=== PATIENT | male | born 1965 | race Caucasian/White ===

== ENCOUNTER 2022-12-13 16:08 | Emergency (ER) | payer OTHER, SELFPAY ==
[2022-12-13 16:14] VITALS: BP 142/91; PULSE 80; RESP 20; TEMP 36.6; O2SAT 97; BMI 23.6
--- NOTE | 2022-12-13 16:17 | XR_ITS ---
[address] [address] Patient Name: NIELS NIELSEN MRN: [id number] date: 1965 Sex: M Assigned Patient Location: ER Current Patient Location: ER Accession/Order Number: [id number] Exam Date: 12/13/2022 16:28 Report Date: 12/13/2022 16:49 At the request of: SALVADOR QUINTANA Procedure: XR foot LT min 3V PROCEDURE: XR foot LT min 3V HISTORY: crush injury to left foot COMPARISON: None. FINDINGS: BONES:No fracture, acute abnormality, or significant arthropathy. SOFT TISSUES:Mild dorsal soft tissue swelling. EFFUSION:None visible. OTHER: Negative. IMPRESSION: 1. Distal dorsal soft tissue swelling. 2. No acute bone abnormality. Electronically authenticated by: ANABEL CHAWLA Date: 12/13/2022 16:49
--- NOTE | 2022-12-13 16:30 | CT_ITS ---
The [address] [address] Patient Name: NIELS NIELSEN MRN: [id number] date: 1965 Sex: M Assigned Patient Location: ER Current Patient Location: ED.MAIN Accession/Order Number: [id number] Exam Date: 12/13/2022 16:50 Report Date: 12/13/2022 17:48 At the request of: SALVADOR QUINTANA Procedure: CT foot LT wo con EXAM: CT foot LT wo con COMPARISON: Same day x-rays. CLINICAL INDICATION: 1200lb crush injury TECHNIQUE: Multiplanar CT images of the left foot without contrast. Dose reduction techniques were achieved by using automated exposure control and/or adjustment of mA and/or kV according to patient size and/or use of iterative reconstruction technique. FINDINGS: No CT evidence of acute osseous abnormality. Small dorsal forefoot soft tissue hematoma/contusion. Chronic fragmentation and multi partite appearance of the medial hallux sesamoid favored as opposed to medial hallux sesamoid fracture although correlate for focal tenderness. Mild enthesopathic change at the distal Achilles tendon insertion. IMPRESSION: As above. Electronically authenticated by: CHIP MCELROY Date: 12/13/2022 17:48
--- NOTE | 2022-12-13 16:36 | ED.GENADUL1 ---
HPI - General Adult General Chief complaint: Extremity Injury, Lower Stated complaint: LOG SPLITTER ON FOOT Time Seen by Provider: 12/13/22 16:25 Source: family Mode of arrival: Wheelchair Limitations: no limitations History of Present Illness HPI narrative: patient is a 57-year-old male who is presenting after a crush injury to happen with it was better. Patient had a with splinter that was in the back of his truck. He was trying to get the what splinter out of the back of his truck, and he rolled off, and the tongue aspect of the what splinter had landed on his left foot, patient estimating approximately 1200 pounds more awake landed on the midfoot of his left foot. Patient cannot ambulate. Patient has taken nothing for pain. Patient's daughter and are at bedside. Patient has swelling and ecchymosis noted to the midfoot of the left foot. Patient has no pain to the toes of the left foot, no ankle pain, knee pain, no other injury or acute complaints. Patient did not have a syncopal episode after the event. Related Data Previous Rx's Medication Instructions Recorded hydrocodone 5 mg-acetaminophen 325 1 tab PO Q8H PRN pain #6 tabs 12/13/22 mg tablet Allergies Allergy/AdvReac Type Severity Reaction Status Date / Time No Known Drug Allergies Allergy Verified 12/13/22 16:14 Review of Systems ROS Narrative All systems are negative except as noted/marked. All systems reviewed and otherwise negative. PFSH PFS Social History Smoking status: Heavy tobacco smoker Exam Narrative Exam Narrative: Nurses note and vital signs reviewed and patient is not hypoxic. General: The patient appears well and in no apparent distress. Patient is resting comfortably on cart. Patient is not toxic, lethargic, or listless Skin: Warm, dry, no pallor noted. There is no rash noted. No petechiae, purpura. Head: Normocephalic, atraumatic Eye: Normal conjunctiva, no drainage, EOMI. PERRL Ears, Nose, Mouth, and Throat: oral mucosa is moist. Cardiovascular: Regular Rate and Rhythm, no murmur, gallop, rub Respiratory: Patient is in no distress, no accessory muscle use, lungs are clear to auscultation, no wheezing, rales or rhonchi Musculoskeletal: Patient has full range of motion of all of the extremities except to left foot. Patient left Achilles tendon is intact,patient has no tenderness to palpation to the left medial or lateral malleolus. Patient has severe pain to the mid foot of the left foot, mild to mod ecchymosis; no signs of compartment syndrome, no obvious deformity. no motor, sensory, or focal neurological deficits Neurological: A&O x3, normal speech Psychiatric: Cooperative Constitutional Vital Signs - 24 hr 12/13/22 16:14 Temperature 97.9 F Pulse Rate [Monitor] 80 Respiratory Rate 20 Blood Pressure [Right Arm] 142/91 H Pulse Oximetry 97 Course Vital Signs Vital signs: Vital Signs Temperature 97.9 F 12/13/22 16:14 Pulse Rate 80 12/13/22 16:14 Respiratory Rate 20 12/13/22 16:14 Blood Pressure 142/91 H 12/13/22 16:14 Pulse Oximetry 97 12/13/22 16:14 Temperature 97.9 F 12/13/22 16:14 Pulse Rate 80 12/13/22 16:14 Respiratory Rate 20 12/13/22 16:14 Blood Pressure 142/91 H 12/13/22 16:14 Pulse Oximetry 97 12/13/22 16:14 Medical Decision Making MDM Narrative Medical decision making narrative: patient's x-ray showed no acute fracture. CT showed questionable fracture this is more bone versus chronic fragments. Patient has no signs or symptoms of compartment syndrome when he arrived in at discharge. Patient was sent with [place], he will continue ice, patient was placed in Bonilla wrap, postop shoe and crutches. education, ice, weightbearing as tolerated, and following up with PCP or instructor hairspring was discussed at bedside. procedure note: Patient was placed in Bonilla wrap, postop shoe and crutches for the left foot and left leg. Splint was assisted with . the patient was neurovascularly intact before and after the splint was placed. the affected bones/injured area had proper alignment in a splint. Education on splint care at home was given at bedside. Patient and family have no questions at discharge. Medical Records Medical records narrative: patient's x-ray showed no acute fracture, CT of the left foot showed no obvious acute fracture, chronic changes favored. Copy of patient's CT report was given to patient. Please see the official reports. Discharge Plan Discharge Chief Complaint: Extremity Injury, Lower Clinical Impression: Crush injury of left foot Patient Disposition: Home, Self-Care Time of Disposition Decision: 18:20 Prescriptions / Home Meds: New hydrocodone-acetaminophen 5-325 mg tablet 1 tab PO Q8H PRN (Reason: pain) Qty: 6 0RF Instructions: Foot Contusion (ED), Crush Injury (ED) Additional Instructions: ice 20 minutes on, 20 minutes off. Do not use heat. Use pain medication as needed, narcotics could cause constipation, he still softeners if needed. Use ibuprofen, Motrin or Advil 800 mg 3 times a day with food or drink to help with pain and inflammation as well. use crutches for the next 3-5 days as needed, weightbearing as tolerated on left foot. Only wear postop shoe when her walking. Wear Bonilla wrap at all times excluding ice and shower for the next 7-10 days. Follow-up with PCP or instructor hairspring. Stand Alone Forms: Portal Instructions Referrals: Physician,Non-Staff, [Primary Care Provider] - 1 week Bryce Hedrick MD [Physician] - 1 week
== END 2022-12-13 18:52 | disposition home or self-care (01) ==
PROVIDERS: Emergency Provider Emergency Medicine
DX: S97.82XA Crushing injury of left foot, initial encounter (principal); W23.0XXA Caught, crushed, jammed, or pinched between moving objects, initial encounter; F17.210 Nicotine dependence, cigarettes, uncomplicated
CPT/HCPCS: 73630; 73700; 99284

== ENCOUNTER 2023-01-02 13:51 | Outpatient (OUT) | payer OTHER, SELFPAY ==
--- NOTE | 2023-01-02 13:51 | XR_ITS ---
The [address] [address] Patient Name: NIELS NIELSEN MRN: [id number] date: 1965 Sex: M Assigned Patient Location: RAD Current Patient Location: RAD Accession/Order Number: [id number] Exam Date: 01/02/2023 13:51 Report Date: 01/02/2023 14:22 At the request of: MASSIMO BRIDGES Procedure: XR foot LT min 3V EXAM: XR foot LT min 3V HISTORY: LEFT FOOT PAIN since 12/22/2022 COMPARISON: None. TECHNIQUE: 3 views of left foot were obtained. FINDINGS: There is a fracture involving the mid shaft of the third metatarsal bone. The distal fracture fragment is slightly impacted and displaced dorsally and laterally approximately one half shaft diameter. There is slight medial angulation of the distal fracture fragment. There is no other evidence of a fracture or dislocation. The joint spaces are intact. A calcification is seen in the distal Achilles tendon near the attachment site. IMPRESSION: Fracture of the mid shaft of the third metatarsal bone, with position and alignment as described. There is no other apparent acute fracture or dislocation. Electronically authenticated by: COCO TAY Date: 01/02/2023 14:22
== END 2023-01-02 13:52 | disposition home or self-care (01) ==
LOC: RAD 13:51
PROVIDERS: Visit Provider Physician Assistant
DX: M79.672 Pain in left foot (principal); S92.332A Displaced fracture of third metatarsal bone, left foot, initial encounter for closed fracture
CPT/HCPCS: 73630

== ENCOUNTER 2023-01-22 13:43 | Outpatient (OUT) | payer OTHER, SELFPAY ==
--- NOTE | 2023-01-22 13:53 | XR_ITS ---
The [place] [id number] Patient Name: NIELS NIELSEN MRN: [id number] date: 1965 Sex: M Assigned Patient Location: RAD Current Patient Location: RAD Accession/Order Number: [id number] Exam Date: 01/22/2023 13:53 Report Date: 01/22/2023 18:34 At the request of: COCO COOLEY Procedure: XR foot LT min 3V PROCEDURE: XR foot LT min 3V COMPARISON: 01/02/2023 HISTORY: LEFT FOOT PAIN FINDINGS: BONES:Healing transverse fracture mid diaphysis of the third metatarsal with periosteal reaction and mixed lytic and sclerotic change with partial bony bridging. No new fracture or dislocation. SOFT TISSUES:Negative. No visible soft tissue swelling. EFFUSION:None visible. OTHER: Negative. XR/XR foot LT min 3V IMPRESSION: Healing stable fracture mid diaphysis of the third metatarsal Electronically authenticated by: ADRIANNE RICHARDSON Date: 01/22/2023 18:34
== END 2023-01-22 13:44 | disposition home or self-care (01) ==
LOC: RAD 13:44
PROVIDERS: Visit Provider Podiatrist Foot & Ankle Surgery
DX: S92.332A Displaced fracture of third metatarsal bone, left foot, initial encounter for closed fracture (principal)
CPT/HCPCS: 73630

== ENCOUNTER 2023-02-19 10:35 | Outpatient (OUT) | payer OTHER, SELFPAY ==
--- NOTE | 2023-02-19 | XR_ITS ---
The [address] [address] Patient Name: NIELS NIELSEN MRN: [id number] date: 1965 Sex: M Assigned Patient Location: RAD Current Patient Location: RAD Accession/Order Number: [id number] Exam Date: 02/19/2023 10:38 Report Date: 02/19/2023 22:20 At the request of: COCO COOLEY Procedure: XR foot LT min 3V PROCEDURE: XR foot LT min 3V COMPARISON: 01/22/2023 HISTORY: LEFT FOOT PAIN FINDINGS: BONES:Stable healing fracture mid diaphysis of the third metatarsal with interval increase in periosteal reaction and callus formation SOFT TISSUES:Negative. No visible soft tissue swelling. EFFUSION:None visible. OTHER: Negative. XR/XR foot LT min 3V IMPRESSION: Continued healing of the third metatarsal mid diaphyseal fracture Electronically authenticated by: ADRIANNE RICHARDSON Date: 02/19/2023 22:20
== END 2023-02-19 10:36 | disposition home or self-care (01) ==
LOC: RAD 10:35
PROVIDERS: Visit Provider Podiatrist Foot & Ankle Surgery
DX: M79.672 Pain in left foot (principal); S92.332D Displaced fracture of third metatarsal bone, left foot, subsequent encounter for fracture with routine healing
CPT/HCPCS: 73630

== ENCOUNTER 2023-03-19 10:37 | Outpatient (OUT) | payer OTHER, SELFPAY ==
--- NOTE | 2023-03-19 | XR_ITS ---
[place] [id number] Patient Name: NIELS NIELSEN MRN: [id number] date: 1965 Sex: M Assigned Patient Location: RAD Current Patient Location: RAD Accession/Order Number: [id number] Exam Date: 03/19/2023 10:48 Report Date: 03/19/2023 11:11 At the request of: COCO COOLEY Procedure: XR foot LT min 3V PROCEDURE: XR foot LT min 3V COMPARISON: 02/19/2023 HISTORY: LEFT FOOT PAIN FINDINGS: BONES:Stable healing fracture mid diaphysis of the third metatarsal with exuberant callus formation but incomplete bony bridging SOFT TISSUES:Negative. No visible soft tissue swelling. EFFUSION:None visible. OTHER: Negative. XR/XR foot LT min 3V IMPRESSION: Stable healing fracture mid diaphysis of the third metatarsal Electronically authenticated by: ADRIANNE RICHARDSON Date: 03/19/2023 11:11
== END 2023-03-19 10:38 | disposition home or self-care (01) ==
LOC: RAD 10:38
PROVIDERS: Visit Provider Podiatrist Foot & Ankle Surgery
DX: S92.332A Displaced fracture of third metatarsal bone, left foot, initial encounter for closed fracture (principal)
CPT/HCPCS: 73630

== ENCOUNTER 2023-11-22 10:32 | Emergency (ER) | payer OTHER, SELFPAY ==
[2023-11-22] VITALS (11 sets, daily range): BP systolic 156–209; BP diastolic 89–101; PULSE 69–80; TEMP 37; O2SAT 96–98; BMI 25.8
--- NOTE | 2023-11-22 10:53 | ED_ITS ---
HPI HPI - General Adult General Chief complaint: Extremity Injury, Upper Stated complaint: PASSED OUT POSSIBLE HIGH BLOOD PRESSURE Time Seen by Provider: 11/22/23 10:38 Source: patient and family Mode of arrival: walk-in Limitations: no limitations History of Present Illness HPI narrative: This patient is here for evaluation of a syncopal episode. This event occurred last night. He says he was standing watching TV getting ready to have some popcorn and the next thing he knows he woke up on the floor unconscious. He got to them right away and that was the first she has heard about but he states that he has had several previous episodes of syncope that he has not shared with her or anyone else. He has not seen a doctor for many many years. He is not on any medications. He has no idea what his cholesterol or lipid status is the only hint he gives in regards to this is, he occasionally notices palpitations and a skipping heartbeat. He did not experience this yesterday. He did not have any evidence of a vasovagal faint yesterday he felt fine leading up to this event. He does not have a headache. He has not injured himself with a fall yesterday. He has social history of smoking tobacco products for many many years. To his knowledge she does not have hypertension or diabetes. He does not have any abdominal pain. He does notice some exertional dyspnea recent ly. He has not noticed any swelling of his extremities. He has not seen a doctor for any of these episodes Related Data Allergies Allergy/AdvReac Type Severity Reaction Status Date / Time No Known Drug Allergies Allergy Verified 12/13/22 16:14 Opioid HPI Opioid Management Most Recent Opioid Data: Last Pain Scale 7 12/13/22 16:37 Last ED Pain Assessment 11/22/23 11:16 [facility] Social History Smoking status: Heavy tobacco smoker Exam Narrative Exam Narrative: Patient is awake alert good historian admits that his made him come here today. He is oriented x 3 is not confused GCS is 15. He has no neurological symptoms at this time. Overall examination appears older than physiological age of 58. HEENT shows no carotid bruits on either side there is no thyromegaly or masses here. Neck is soft and supple there is no meningeal irritation. Neurological shows cranial nerves II through XII to be normal. Lungs were clear with no wheeze rales or rhonchi. Heart sounds are equally benign with no clicks rubs gallops or murmur. He has no abdominal discomfort. His pulses to the extremities are normal. There is no swelling of his limbs and perfusion to the extremities is normal. Skin and integument are normal with no petechia or purpura. Constitutional Vital Signs, click to edit/add: Last Vital Signs Temp 98.6 F 11/22/23 10:38 Pulse 78 11/22/23 10:38 Resp 18 11/22/23 10:38 BP 190/99 H 11/22/23 10:38 Pulse Ox 98 11/22/23 10:38 O2 Del Method Room Air 11/22/23 10:38 Course Vital Signs Vital signs: Vital Signs Temperature 98.6 F 11/22/23 10:38 Pulse Rate 78 11/22/23 10:38 Respiratory Rate 18 11/22/23 10:38 Blood Pressure 190/99 H 11/22/23 10:38 Pulse Oximetry 98 11/22/23 10:38 Oxygen Delivery Method Room Air 11/22/23 10:38 Temperature 98.6 F 11/22/23 10:38 Pulse Rate 78 11/22/23 10:38 Respiratory Rate 18 11/22/23 10:38 Blood Pressure 190/99 H 11/22/23 10:38 Pulse Oximetry 98 11/22/23 10:38 Oxygen Delivery Method Room Air 11/22/23 10:38 Medical Decision Making MDM Narrative Medical decision making narrative: Patient's screening labs shows mild elevation of his liver function test. He says he does use alcoholic beverages on. Regular basis. His chest x-ray did not show any gross abnormalities, cardiac size is normal. EKG does not show any prolongation of QTc and he was on a equipment monitor phototypesetting here and had no arrhythmia. Basic chemistry profile is essentially normal. We had a lengthy discussion with he and his explaining to him that he absolutely must further follow-up evaluation for these episodes. 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 We given him a list of physicians to follow-up with. His does also have a physician that could see him as well. Will give him a copy of all his laboratory tests. Discharge Plan Discharge Stand Alone Forms: Portal Instructions Chief Complaint: Extremity Injury, Upper Clinical Impression: Syncope Patient Disposition: Home, Self-Care Time of Disposition Decision: 12:29 Print Language: Tajik Additional Instructions: Follow-up with local practitioner for ongoing testing and evaluation as discussed. Referrals: Physician,Non-Staff, MD [Primary Care Provider] - 1 week
--- NOTE | 2023-11-22 10:54 | XR_ITS ---
The [address] [address] Patient Name: NIELS NIELSEN MRN: [id number] date: 1965 Sex: M Assigned Patient Location: ER Current Patient Location: ER Accession/Order Number: [id number] Exam Date: 11/22/2023 11:10 Report Date: 11/22/2023 11:24 At the request of: SCOTTIE WEBB Procedure: XR chest 2V EXAMINATION: XR chest 2V, 11/22/2023 11:10 AM EDT HISTORY: Syncope COMPARISON: None. TECHNIQUE: PA and lateral views of the chest were obtained. FINDINGS: Medical devices: None. Cardiomediastinal silhouette is within normal limits. The lungs are clear, nipple shadows are noted bilaterally on the frontal view. No pleural effusion or pneumothorax. No acute bony or soft tissue abnormalities. XR/XR chest 2V IMPRESSION: 1. No acute cardiopulmonary abnormality. Electronically authenticated by: CONNOR GARCIA Date: 11/22/2023 11:24
--- NOTE | 2023-11-22 10:54 | ECG_ITS ---
The [facility] Test Date: 2023-11-22 Pat Name: NIELS NIELSEN Department: Room: - Gender: Male [employer] Operator: : 1965 Requested By: Order Number: [id number] Reading MD: GENIE NELSON Measurements Intervals [place] Rate: 67 P: 53 DE: 162 QRS: 54 QRSD: 80 T: 71 QT: 414 QTc: 429 Interpretive Statements 1100 Sinus rhythm 9110 normal ECG No previous ECG available for comparison Electronically Signed On 11-23-2023 18:38:26 EDT by GENIE NELSON
[2023-11-22 11:14] LABS: Basophils Absolute Auto 0.1 10^3/uL (0.0-0.1); Basophils Percent Auto 1.7 % (0.2-2.0); Eosinophils Absolute Auto 0.3 10^3/uL (0.0-0.7); Eosinophils Percent Auto 3.3 % (0.9-7.0); Hematocrit 47.3 % (42.0-54.0); Hemoglobin 16.3 g/dL (14.0-18.0); Immature Granulocytes Abs Auto 0.01 10^3/uL (0.00-0.03); Immature Granulocytes Pct Auto 0.1 % (0.0-0.5); Lymphocytes Absolute Auto 3.4 10^3/uL (1.2-3.8); Lymphocytes Percent Auto 41.5 % (20.5-60.0); Mean Corpuscular HGB Conc 34.5 g/dL (29.9-35.2); Mean Corpuscular Hemoglobin 32.1 pg (25.9-34.0); Mean Corpuscular Volume 93.3 fL (80.0-94.0); Mean Platelet Volume 10.5 fL (9.5-13.5); Monocytes Absolute Auto 0.6 10^3/uL (0.3-0.8); Monocytes Percent Auto 7.4 % (1.7-12.0); Neutrophils Absolute Auto 3.8 10^3/uL (1.4-6.5); Platelet Count 229 10^3/uL (150-450); Red Blood Count 5.07 10^6/uL (4.70-6.10); White Blood Count 8.2 10^3/uL (4.0-11.0)
[2023-11-22 11:42] LABS: Alanine Aminotransferase 98 U/L (16-63); Albumin Level 4.3 g/dL (3.4-5.0); Alkaline Phosphatase 99 U/L (46-116); Anion Gap 11.2; Aspartate Amino Transferase 61 U/L (15-37); BUN Creatinine Ratio 9.5; Bilirubin Total 0.5 mg/dL (0.2-1.0); Calcium 9.1 mg/dL (8.5-10.1); Carbon Dioxide 28.9 mmol/L (21.0-32.0); Chloride 102 mmol/L (98-107); Estimated GFR (African America >60 (>=60); Estimated GFR (Non-African Ame >60 (>=60); Globulin 4.2 g/dL; Glucose 106 mg/dL (74-106); Potassium 5.1 mmol/L (3.5-5.1); Sodium 137 mmol/L (136-145); Total Protein 8.5 g/dL (6.4-8.2)
[2023-11-22 11:52] LABS: D Dimer 0.61 mg/L FEU (<=0.59)
== END 2023-11-22 12:40 | disposition home or self-care (01) ==
PROVIDERS: Emergency Provider Emergency Medicine Emergency Medical Services
DX: R55 Syncope and collapse (principal); F17.210 Nicotine dependence, cigarettes, uncomplicated
CPT/HCPCS: 36415; 71046; 80053; 83880; 84484; 85025; 85378; 93005; 99285

== ENCOUNTER 2023-12-04 10:11 | Outpatient (OUT) | payer OTHER, SELFPAY ==
--- OUTSIDE RECORDS SUMMARY | 2023-12-04 10:18 | XMS_ITS | CCD ---
Author Organization [facility] Inform ion Partnership [facility] Care Team Providers Care Kiln Packer Name Role Phone ANABEL LONG Unavailable Unavailable ANABEL LONG Unavailable Unavailable ANABEL LONG Unavailable Unavailable ANABEL LONG Unavailable Unavailable TAMMY CONTRERAS Unavailable Unavailable KARENGEE Admitting Unavailable KARENGEE Attending Unavailable DEION MONK Consulting Unavaila ble BV, Physician - Emergency Consulting [place] Valentin, K[employer]al Consult[employer] Unavailable Allergies Allergy Classification Reported Allergen(s) Allergy Type Date of Onset Reaction(s) Facility (1 source) No Known Medication Allergies; Translations: [No Known Medication Allergies] Propensity to adverse reactions to drug (disorder) [facility] Repository Problems Problem Classification Problem Date Documented Da te Episodic/Chronic Nausea and vomiting (1 source) Nausea with vomiting, unspecified; Translations: [Nausea with vomiting, unspecified] Onset: 10-24-2017 Episodic Noninfectious gastroenteritis (1 source) Noninfective gastroenteritis and colitis, unspecified; Translations: [Noninfective gastroenteritis and colitis, unspecified] Onset: 10-24-2017 Episodic Other gastrointestinal disorders (1 source) Diarrhea, unspecified; Translations: [Diarrhea, unspecified] Onset: 10-24-2017 Episodic Results Test Name Value Interpretation Reference Range Facility Family Medicine Office/Clini c Noteon 11-27-2018 Family Medicine Office/Clinic Note Chief Complaint Hospital f/u,New PT History of Present Illness HPI: Pt hasnt seen a PCP in yrs. Pt states hes feeling better since being in the hospital. Pt has no concerns. No PCP in years. PMH significant for HTN. Recently in the hospital for chest pains. CXR, labs, cardiac workup, stress test were all normal. BP is controlled. No longer having any chest pains or SOB. Was told his symptoms were muscle related. Everyday smoker (1 ppd or more). Review of Systems General Adult ROS Fatigue: No Appetite change: No Other General: No Weakness: No Weight gain: No Weight Loss: No Cardiovascular Chest pain/pressure: No Claudication: No Edema: No Orthopnea: No Other Cardiovascular: No Palpitations: No Syncope: No EENMT Bleeding gums: No Dental pain: No Ear pain: No Facial pain: No Hearing loss: No Hoarseness: No Mouth lesions: No Nasal congestion: No Nasal discharge: No Nosebleeds: No Other EENMT: No Postnasal drainage: No Sore_throat: No Tinnitus: No Vision Changes: No Gastrointestinal Abdominal pain: No Constipation: No Diarrhea: No Dysphagia: No Fecal incontinence: No Heartburn: No Nausea: No Other GI: No Stools, black/bloody: No Vomiting: No Vomiting blood: No Genitourinary Hematologic/Lymphatic Musculoskeletal Neurological Psychiatric Respiratory Cough: No Hemoptysis: No Other Respiratory: No Shortness_of_breath: No Snoring: No Sputum production: No Wheezing: No Physical Exam Vitals & Measurements BP: 134/80 SpO2: 95 HT: 177 cm WT: 69.4 kg DOSE WT: 69.4 kg BMI: 22.15 General: Alert and oriented, well nourished, no acute distress. Lungs: Clear to auscultation, non-labored respiration. Heart: Normal rate, regular rhythm, no murmur, gallop or edema. Neurologic: Awake, alert, and oriented X3, CN II-XII intact. Psychiatric: Cooperative, appropriate mood and affect. Additional Vitals Body Mass Index Measured: 22.15 kg/m2 BP Position/Location: Sitting, Right arm Peripheral Pulse Rate: 71 bpm Assessment/Plan 1. Encounter to establish care 2. Hospital discharge follow-up 3. Atypical chest pain This has resolved. Go to ED if having chest pains again. 4. Hypertension Controlled without meds. 5. Tobacco use Declines cessation today. F/u 6 months with labs Problem List/Past Medical History Ongoing Atypical chest pain Hypertension Tobacco use Historical No qualifying data Procedure/Surgical History bilateral rotator cuff repairs left leg surgery- pins right hip surgery Medications No active medications Allergies No Known Medication Allergies Social History Alcohol Current, Beer Substance Abuse Denies All Tobacco 10 or more cigarettes (1/2 pack or more)/day in last 30 days Use:. Cigarettes, 1 per day. Ready to change: No. Family History Family history is negative Diagnostic Results No qualifying data available (XRay) No qualifying data available (CT) No qualifying data available (Ultrasound) No qualifying data available (MRI) Electronically signed by ___ Guille Khan PA-C 11/27/18 15:46 EDT Normal [facility] .eGFRon 11-20-2018 eGFR AA >60 Normal >=60 [facility] Comment on above: Result Comment: Resu lt = 0-14.9 mL/min/1.73 m2 Kidney failure or Dialysis Result = 15-29 mL/min/1.73 m2 Severe decrease in GFR Result = 30-59 mL/min/1.73 m2 Moderate decrease in GFR Result >= 60 mL/min/1.73 m2 Normal or increased GFR Performed By: #### E GFR #### [address] [address] eGFR Non-AA >60 Normal >=60 [facility] Comment on above: Result Comment: Resu lt = 0-14.9 mL/min/1.73 m2 Kidney failure or Dialysis Result = 15-29 mL/min/1.73 m2 Severe decrease in GFR Result = 30-59 mL/min/1.73 m2 Moderate decrease in GFR Result >= 60 mL/min/1.73 m2 Normal or increased GFR Chronic kidney disease is defined as either kidney damage or GFR < 60 mL/min/1.73 m2 for >= 3 months. Kidney damage is defined as pathologic abnormalities or markers of damage including abnormalities in blood or urine tests or imaging studies. This GFR is NOT used for medication dosing. Performed By: #### E GFR #### [address] [address] AMI 2Hron 11-20-2018 2 Hour Myoglobin 22.0 ng/mL Normal 17.4-105.7 [facility] Comment on above: Performed By: #### C BC #### [address] [address] Troponin I.cardiac [Mass/Vol] ng/mL Normal 0.00-0.03 [facility] Comment on above: Result Comment: An i ncreased Troponin-I value, in the absence of myocardial ischemia, may indicate other etiologies of cardiac damage. Performed By: #### C BC #### [address] [address] AMI Initon 11-20-2018 Initial Myoglobin 29.0 ng/mL Normal 17.4-105.7 [facility] Comment on above: Performed By: #### A MI1 #### [address] [address] Troponin I.cardiac [Mass/Vol] ng/mL Normal 0.00-0.03 [facility] Comment on above: Result Comment: An i ncreased Troponin-I value, in the absence of myocardial ischemia, may indicate other etiologies of cardiac damage. Performed By: #### A MI1 #### [address] [address] [id number] 11-20-2018 6 Hour Myoglobin 27.0 ng/mL Normal 17.4-105.7 [facility] Comment on above: Performed By: #### C BC #### [address] [address] Troponin I.cardiac [Mass/Vol] ng/mL Normal 0.00-0.03 [facility] Comment on above: Result Comment: An i ncreased Troponin-I value, in the absence of myocardial ischemia, may indicate other etiologies of cardiac damage. Performed By: #### C BC #### [address] [address] Basic Metabolic Profileon Anion gap [Moles/Vol] 14 mmol/L Normal 01-20 [facility] Comment on above: Performed By: #### C [id number] #### [address] [address] Calcium [Mass/Vol] 8.7 mg/dL Normal 8.5-10.3 [facility] Comment on above: Performed By: #### C [id number] #### [address] [address] Chloride [Moles/Vol] 105 mmol/L Normal 98-110 [facility] Comment on above: Performed By: #### C [id number] #### [address] [address] CO2 [Moles/Vol] 22 mmol/L Normal 22-32 [facility] Comment on above: Performed By: #### C [id number] #### [address] [address] Creatinine [Mass/Vol] 0.70 mg/dL Normal 0.61-1.24 [facility] Comment on above: Performed By: #### C [id number] #### [address] [address] Glucose [Mass/Vol] 100 mg/dL Normal 74-118 [facility] Comment on above: Performed By: #### C [id number] #### [address] [address] Potassium [Moles/Vol] 4.4 mmol/L Normal 3.4-4.8 [facility] Comment on above: Performed By: #### C [id number] #### [address] [address] Sodium [Moles/Vol] 137 mmol/L Normal 133-142 [facility] Comment on above: Performed By: #### C [id number] #### [address] [address] Urea nitrogen [Mass/Vol] 13 mg/dL Normal 8-26 [facility] Comment on above: Performed By: #### C [id number] #### [address] [address] Urea nitrogen/Creatinine [Mass ratio] 18.6 mg/mg Normal 10.0-20.0 [facility] Comment on above: Performed By: #### C [id number] #### [address] [address] CBC w/ Diffon 11-20-2018 Erythrocyte distribution width (RBC) [Ratio] 13.0 % Normal 11.6-14.8 [facility] Comment on above: Performed By: #### C BC #### [address] [address] Hematocrit (Bld) [Volume fraction] 46.3 % Normal 41.0-53.0 [facility] Comment on above: Performed By: #### C BC #### [address] [address] Hemoglobin (Bld) [Mass/Vol] 15.8 g/dL Normal 13.5-17.5 [facility] Comment on above: Performed By: #### C BC #### [address] [address] MCH (RBC) [Entitic mass] 32.5 pg Normal 27.0-35.0 [facility] Comment on above: Performed By: #### C BC #### [address] [address] MCHC (RBC) [Mass/Vol] 34.1 % Normal 31.0-37.0 [facility] Comment on above: Performed By: #### C BC #### [address] [address] MCV (RBC) [Entitic vol] 95.3 fL Normal 80.0-100.0 [facility] Comment on above: Performed By: #### C BC #### [address] [address] Platelet mean volume (Bld) [Entitic vol] 8.6 fL Normal 6.7-10.6 [facility] Comment on above: Performed By: #### C BC #### [address] [address] Platelets (Bld) [#/Vol] 202 x10*3/mcL Normal 150-350 [facility] Comment on above: Performed By: #### C BC #### [facility] [address] [place] [address] RBC (Bld) [#/Vol] 4.86 x10*6/mcL Normal 4.30-5.80 [facility] Comment on above: Performed By: #### C BC #### [facility] [address] [place] [address] WBC (Bld) [#/Vol] 12.8 x10*3/mcL High 4.5-11.0 [facility] Comment on above: Performed By: #### C BC #### [facility] [address] [place] [address] Cardiology Consultationon Cardiology Consultation Chief Complaint dyspnea with left chest discomfort sudden onse Reason for Consultation Chest pain History of Present Illness No prior cardiac history. Smokes and does not see a physician. This morning he suddenly developed severe dyspnea at work. He walked out to his truck and noted some brief left parasternal pain with inspiration. The dyspnea persisted. He called his and he was brought to the ED. ECG, serum biomarkers normal in ED. The rest dyspnea resolved but he has continued to have dyspnea with activity. Chest pain now only with palpation or deep inspiration or cough. Stress test was normal today, but he was only able to walk 3 minutes due to severe dyspnea. Review of Systems Constitutional: [No fevers, chills, sweats] Eye: [No recent visual problems] ENMT: [No ear pain, nasal congestion, sore throat] Respiratory: [+ shortness of breath, cough] Cardiovascular: [+ Chest pain, No palpitations, syncope] Gastrointestinal: [No nausea, vomiting, diarrhea] Genitourinary: [No hematuria] Physical Exam Vitals & Measurements T: 36.7 ?C (Oral) HR: 61 (Monitored) RR: 16 BP: 151/85 SpO2: 94% WT: 67.8 kg DOSE WT: 67.8 kg Lungs: [Clear to auscultation and percussion, non-labored respiration]. Heart: [Normal rate, regular rhythm, no murmur, gallop or edema]. Abdomen: [Soft, non-tender, non-distended, normal bowel sounds, no masses]. Mental Status:[Alert and oriented x3]. Additional Vitals Body Mass Index Measured: 21.45 kg/m2 Peripheral Pulse Rate: 69 bpm Assessment/Plan 1. Chest pain Atypical for angina, normal biomarkers, normal stress. Would hold off on further cardiac eval at this time. He should be evaluated for pulmonary causes of the dyspnea. 2. Dyspnea 3. Palpitations 4. Hypertension Problem List/Past Medical History Ongoing No qualifying data Historical No qualifying data Procedure/Surgical History bilateral rotator cuff repairs left leg surgery- pins right hip surgery Medications Home No active home medications Inpatient acetaminophen, 1000 mg, Oral, TID acetaminophen, 650 mg, Oral, q6hr, PRN aspirin, 81 mg, Oral, Daily morphine, 2 mg, 1 mL, IV Push, q2hr, PRN naloxone, 0.4 mg, 1 mL, IV Push, q2min, PRN nicotine 21 mg/24 hr transdermal film, extended release, 1 patches, TD, Daily, PRN Normal Saline Flush 0.9% injectable solution, 10 mL, IV Push, BID Normal Saline Flush 0.9% injectable solution, 10 mL, IV Push, As Indicated, PRN ondansetron, 4 mg, 2 mL, IV Push, q4hr, PRN Prescriptions No active Prescriptions Allergies No Known Medication Allergies Social History Alcohol Current, Beer Substance Abuse Denies All Tobacco 10 or more cigarettes (1/2 pack or more)/day in last 30 days Use:. Cigarettes, 1 per day. Lab Results Microbiology No qualifying data available. Electronically signed by ___ Aleshia BEDOLLA, Deion Flynn 11/20/18 16:18 EDT Normal [facility] [employer] Progress Noteon 11-20-2018 [employer] Progress Note CM met with patient before huddles today. He is new to the floor from ER for chest pain. he is asking to go home since unable to do a stress test today. ROSA will update RN, educated patient on remaining in the hospital while labs are trending for ND. He does have insurance, independent with adl's, still drives, no assistive devices used, has supportive SO. He voices he doesn't go to doctors, he doesn't need too. CM educated patient on this & he agrees to let CM set him up with a new PCP to establish care. Request Dr. Quintana, since this is who is SO sees. CM will work on this today. He does not want to quit smoking, but agrees he should cut back. his main concern is getting out of the hosptial today, because i gotta pay for this & no reason to stay here to wait & do a test on friday. Again, re-educated & reminded him to wait for the doctors recommendations first. I don't like hospitals or doctors too well & if I don't need to go to them, I don't. SO at bedside for conversation. No other concerns or questions for CM. Will F/U as needed. discussed in huddle. Electronically signed by ___ Leidy Chapin 11/20/18 12:23 EDT Recieved a call back from Dr. quintana rope maker. Upon discussion, we reviewed patient listed as a self-pay, however, patient informed CM earlier he has insurance, so will need to verify & call back, but Dr. Quintana will accept if insurance accepted. Electronically signed by ___ Leidy Chapin 11/20/18 14:21 EDT CM knocked & entered room of patient, room smelled of strong cigarette smell, pt. denies smoking. Made Nurse gale aware. Upon discussion regarding PCP, patient states he is in between insurance right now so I guess I don't have any right now. CM can not make the appointment with dr. quintana without knowing insurance & patient states he will not self pay for an appointment. States Just let it go, I don't need one. He is also continuing to verbalize getting out of this place. Unfortunately, CM can not get him an appointment with any MD without insurance unless he is willing to pay out of pocket &pt. refuses. encouraged patient to contact DR. Quintana office once he has insurance through his job established. Refuses to speak to financial services education consultant when CM offered. Offered self pay education pamphlet as well, pt refuses stating he will get it figured out. CM put financial assistance program in chart for Discharge. Electronically signed by ___ Leidy Chapin 11/20/18 14:32 EDT Normal [facility] D-Dimeron 11-20-2018 Fibrin D-dimer FEU IA (Bld) [Mass/Vol] 0.34 mg/L feu Normal 0.00-0.49 [facility] Comment on above: Result Comment: Resu lts of the D-Dimer test should always be interpreted in conjunction with the patient's medical history, clinical presentation, and other findings. Results <0.5 mg/L are considered NEGATIVE for VTE. Results >= 0.5 mg/L require further clinical evaluation. Levels of triglyceride up to 600 mg/dl do not interfere with this D-Dimer assay. Performed By: #### D TRACY #### [address] [address] Diff Autoon 11-20-2018 Baso Absolute 0.1 x10*3/mcL Normal 0.0-0.2 [facility] Comment on above: Performed By: #### . Automated Diff #### [address] [address] Basophils/100 WBC (Bld) 0.8 % Normal 0.0-1.2 [facility] Comment on above: Performed By: #### . Automated Diff #### [address] [address] Eos Absolute 0.2 x10*3/mcL Normal 0.0-0.4 [facility] Comment on above: Performed By: #### . Automated Diff #### [address] [address] Eosinophils/100 WBC (Bld) 1.9 % Normal 0.0-6.1 [facility] Comment on above: Performed By: #### . Automated Diff #### [address] [address] Lymphocytes (Bld) [#/Vol] 3.5 x10*3/mcL Normal 1.0-4.8 [facility] Comment on above: Performed By: #### . Automated Diff #### [address] [address] Lymphocytes/100 WBC (Bld) 27.3 % Normal 27.2-40.8 [facility] Comment on above: Performed By: #### . Automated Diff #### [address] [address] [place] Absolute 0.9 x10*3/mcL Normal 0.3-1.1 [facility] Comment on above: Performed By: #### . Automated Diff #### [address] [address] Monocytes/100 WBC (Bld) 6.9 % Normal 4.7-13.9 [facility] Comment on above: Performed By: #### . Automated Diff #### [address] [address] Neutro Absolute 8.1 x10*3/mcL High 1.8-7.7 [facility] Comment on above: Performed By: #### . Automated Diff #### [address] [address] Neutro Auto 63.1 % Normal 47.2-70.8 [facility] Comment on above: Performed By: #### . Automated Diff #### [address] [address] ED Clinical Summaryon 2018 ED Clinical Summary (Inserted Image. Ale ble to display) [address] [address] ED Clinical Summary Person Information Name: Ahsan Rivas [facility] Age: 53 Years : 1965 Sex: Male PCP: Marital Status: Single Phone: Race: White Ethnicity: Not or Language: Citizen Of [place] Visit Reason: Dyspnea; Chest pain - Cardiac Acuity: 2 Enc Type: Observation Med Service: Emergency Medicine Arrival: 11/20/2018 07:05:00 Discharge: LOS: 000 01:54 Checkin: 11/20/2018 07:05:00 Checkout: 11/20/2018 08:59:41 Dispo Type: Admitted to ICU Address: [address] [address] Provider Notes: History of Present Illness Patient is a 53 year old male presenting to the ED for chest pain. 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 He states that he was feeling baseline this morning. Patient states that the pain is in his left chest and has relieved some since arriving to the ED. Patient's symptoms include cough that started 2 weeks ago. He denies syncope and fever. He also denies recent travel or strenuous activity. Patient denies medical history of heart disease, emphysema, COPD, hypertension, and PE/DVT. He denies family history of heart disease. Patient admits to smoking and denies any other illicit drug use. No other complaints at this time.?He does not see a family doctor, Review of Systems Pertinent positive and negative findings as above in HPI. Additionally: Constitutional: No fevers, chills, sweats Eye: No recent visual problems ENT: No ear pain, nasal congestion, sore throat Respiratory: Positive for?shortness of breath, cough Cardiovascular: Positive for chest pain, No syncope Gastrointestinal: No nausea, vomiting, diarrhea Genitourinary: No hematuria, no difficulty voiding Heme/Lymph: Negative for bruising tendency, swollen lymph glands Endocrine: Negative for excessive thirst, excessive hunger Musculoskeletal: No back pain, neck pain, joint pain, muscle pain, decreased range of motion Skin: No rash, pruritus, abrasions Neurologic: No headache, no LOC, no focal neuro deficits Psychiatric: No anxiety, depression As reviewed in the HPI. All other systems reviewed are negative or normal Physical Exam Constitutional: the patient appears in no acute distress, alert, awake, non-toxic Head/face: exam is negative for obvious evidence of injury or deformity Eyes: Pupils: equal, round, and reactive to light. Sclera: no appreciated abnormality ENT: Exam is negative for injury or acute deformity Neck: External neck: no acute changes, Trachea: is midline with no obvious abnormalities, ROM/movement: no acute changes, Meningeal signs: are not present. Cardiovascular: mild tenderness to left chest, mildly reducible, Rate: normal, Rhythm: regular, Pulses: no pulse deficits are appreciated, Heart sounds: normal, Edema: is not appreciated, JVD: is not appreciated. Respiratory: Exam negative for respiratory distress, equal breath sound bilaterally, Respirations: normal, Breath sounds: are normal, no acute changes, throughout. Abdomen / GI Exam: negative for guarding, pulsatile mass, rebound tenderness, tenderness, Inspection: abdomen appears normal, Bowel sounds: normal, active, Palpitation: abdomen is soft and non-tender, Indicators: Williamson???s sign is negative, McBurney???s point is not-tender. Back: Exam negative for acute changes, CVA tenderness. Musculoskeletal/extremi ty: Extremities: all appear grossly normal, with no appreciated pain with palpation, Perfusion: the patient is warm, the extremity is warm. Sensation intact. DVT exam: no swelling no tenderness ,Calves: are non-tender. Skin: Exam negative for cyanosis, any evidence of obvious injury, Appearance: appears normal. Neuro: Orientation: is normal, appropriate for stated age, no acute changes, Mentation: able to follow commands, cerebellar function: is grossly normal, no acute changes, Motor: strength is normal, strength is 5/5 in all extremities, Sensation: no obvious gross deficits. Psych: Exam negative for acute changes, delusions, inappropriate behavior. Diagnosis: 1:Chest pain; 2:Dyspnea; 3:Palpitations; 4:Hypertension Problems No Problems Documented Smoking Status: Smoking Status 10 or more cigarettes (1/2 pack or more)/day in last 30 days Functional Status: Sensory Deficits: History of Falls: Mobility Assistance Prior to Admission: ADLs: Current Level of Assistance for Self-Care/Mobility: Cognitive Status: Allergies No Known Medication Allergies Laboratory or Other Results This Visit (last charted value for your 11/20/2018 visit) Hematology 11/20/2018 7:12 AM WBC: 12.8 x10 RBC: 4.86 x10 Neutro Auto: 63.1 % -- Normal range between ( 47.2 and 70.8 ) Lymph Auto: 27.3 % -- Normal range between ( 27.2 and 40.8 ) [place] Auto: 6.9 % -- Normal range between ( 4.7 and 13.9 ) Eos Auto: 1.9 % -- Normal range between ( 0.0 and 6.1 ) Basophil Auto: 0.8 % -- Normal range between ( 0.0 and 1.2 ) Baso Absolute: 0.1 x10 MCV: 95.3 fL -- Normal range between ( 80.0 and 100.0 ) MCHC: 34.1 % -- Normal range between ( 31.0 and 37.0 ) Lymph Absolute: 3.5 x10 Hct: 46.3 % -- Normal range between ( 41.0 and 53.0 ) [place] Absolute: 0.9 x10 MCH: 32.5 pg -- Normal range between ( 27.0 and 35.0 ) Neutro Absolute: 8.1 x10 Hgb: 15.8 g/dL -- Normal range between ( 13.5 and 17.5 ) Mean Platelet Volume: 8.6 fL -- Normal range between ( 6.7 and 10.6 ) Platelet: 202 x10 Eos Absolute: 0.2 x10 RDW: 13.0 % -- Normal range between ( 11.6 and 14.8 ) Coagulation 11/20/2018 7:12 AM PT: 9.7 seconds -- Normal range between ( 9.2 and 11.7 ) INR: 0.9 ratio PTT: 24.2 seconds -- Normal range between ( 20.6 and 27.7 ) D-Dimer: 0.34 mg/L feu -- Normal range between ( 0.00 and 0.49 ) Chemistry 11/20/2018 7:12 AM Creatinine Lvl: 0.70 mg/dL -- Normal range between ( 0.61 and 1.24 ) BUN: 13 mg/dL -- Normal range between ( 8 and 26 ) Glucose Lvl: 100 mg/dL -- Normal range between ( 74 and 118 ) Potassium Lvl: 4.4 mmol/L -- Normal range between ( 3.4 and 4.8 ) Sodium Lvl: 137 mmol/L -- Normal range between ( 133 and 142 ) Calcium Lvl: 8.7 mg/dL -- Normal range between ( 8.5 and 10.3 ) Chloride: 105 mmol/L -- Normal range between ( 98 and 110 ) CO2: 22 mmol/L -- Normal range between ( 22 and 32 ) Anion Gap: 14 -- Normal range between ( 7 and 17 ) eGFR Non-AA: >60 mL/min/1.73m? eGFR AA: >60 mL/min/1.73m? BUN Crea Ratio: 18.6 -- Normal range between ( 10.0 and 20.0 ) Initial Troponin: <0.03 ng/mL -- Normal range between ( 0.00 and 0.03 ) Initial Myoglobin: 29.0 ng/mL -- Normal range between ( 17.4 and 105.7 ) Diagnostic Radiology 11/20/2018 7:50 AM XR Chest 1 View: XR Chest 1 View Measurements: Height: Weight: 71.2 kg Blood Pressure: /88 mmHg BMI: Procedures No Procedures Documented Immunizations No Immunizations Documented This Visit Final Med List: No Known Home Medications Care Team Members: Attending Physician: Karen BEDOLLA, Gee Hargrove Consulting Physician: Referring Physician: Provider Role Assigned Unassigned Ramy Dooley DO ED Provider 11/20/2018 07:07:18 Follow up: Discharge Orders: Place in Observation 11/20/18 8:37:00 EDT, Coronary Care Unit, 11/20/18 8:37:00 EDT, Karen BEDOLLA, Karen Sawyer MD, Gee Hargrove Request for Admit 11/20/18 8:34:00 EDT, 11/20/18 8:34:00 EDT, Coronary Care Unit, Jen Bey DO Patient Education Information: [facility] Poison Help line: . [facility] Hotline: [place] Tobacco Quit Line: [place], [place]) [address]: [phone] [place], [place]) [address]: [phone] [facility] [address] 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 He states that he was feeling baseline this morning. Patient states that the pain is in his left chest and has relieved some since arriving to the ED. Patient's symptoms include cough that started 2 weeks ago. He denies syncope and fever. He also denies recent travel or strenuous activity. Patient denies medical history of heart disease, emphysema, COPD, hypertension, and PE/DVT. He denies family history of heart disease. Patient admits to smoking and denies any other illicit drug use. No other complaints at this time. He does not see a family doctor, Review of Systems Pertinent positive and negative findings as above in HPI. Additionally: Constitutional: No fevers, chills, sweats Eye: No recent visual problems ENT: No ear pain, nasal congestion, sore throat Respiratory: Positive for shortness of breath, cough Cardiovascular: Positive for chest pain, No syncope Gastrointestinal: No nausea, vomiting, diarrhea Genitourinary: No hematuria, no difficulty voiding Heme/Lymph: Negative for bruising tendency, swollen lymph glands Endocrine: Negative for excessive thirst, excessive hunger Musculoskeletal: No back pain, neck pain, joint pain, muscle pain, decreased range of motion Skin: No rash, pruritus, abrasions Neurologic: No headache, no LOC, no focal neuro deficits Psychiatric: No anxiety, depression As reviewed in the HPI. All other systems reviewed are negative or normal Physical Exam Constitutional: the patient appears in no acute distress, alert, awake, non-toxic Head/face: exam is negative for obvious evidence of injury or deformity Eyes: Pupils: equal, round, and reactive to light. Sclera: no appreciated abnormality ENT: Exam is negative for injury or acute deformity Neck: External neck: no acute changes, Trachea: is midline with no obvious abnormalities, ROM/movement: no acute changes, Meningeal signs: are not present. Cardiovascular: mild tenderness to left chest, mildly reducible, Rate: normal, Rhythm: regular, Pulses: no pulse deficits are appreciated, Heart sounds: normal, Edema: is not appreciated, JVD: is not appreciated. Respiratory: Exam negative for respiratory distress, equal breath sound bilaterally, Respirations: normal, Breath sounds: are normal, no acute changes, throughout. Abdomen / GI Exam: negative for guarding, pulsatile mass, rebound tenderness, tenderness, Inspection: abdomen appears normal, Bowel sounds: normal, active, Palpitation: abdomen is soft and non-tender, Indicators: Williamson?s sign is negative, McBurney?s point is not-tender. Back: Exam negative for acute changes, CVA tenderness. Musculoskeletal/extremi ty: Extremities: all appear grossly normal, with no appreciated pain with palpation, Perfusion: the patient is warm, the extremity is warm. Sensation intact. DVT exam: no swelling no tenderness ,Calves: are non-tender. Skin: Exam negative for cyanosis, any evidence of obvious injury, Appearance: appears normal. Neuro: Orientation: is normal, appropriate for stated age, no acute changes, Mentation: able to follow commands, cerebellar function: is grossly normal, no acute changes, Motor: strength is normal, strength is 5/5 in all extremities, Sensation: no obvious gross deficits. Psych: Exam negative for acute changes, delusions, inappropriate behavior. Vitals & Measurements T: 36.6 ?C (Oral) HR: 75 (Monitored) RR: 8 BP: 157/99 SpO2: 96% DOSE WT: 71.2 kg Additional Vitals No qualifying data available. Procedure No qualifying data available. ASA Documentation Medical Decision Making Suad Jones scribing for and in the presence of Dr. Dooley. Scribe Attestation: The information in this document, created by the medical charge entry specialist for me, accurately reflects the services I personally performed and the decisions made by me. This report has been created using voice recognition software. It may contain minor errors which are inherent in voice recognition technology. Initial MDM: 735 After my bedside initial evaluation of the patient, based on history and physical examination, I believe that this may represent Chest Pain .I have also considered ACS, PE, aortic dissection, pneumothorax, costochondritis, GERD, pleurisy, mediastinitis, pneumomediastinum, musculoskeletal as potential differential diagnosis, among others, for this patient. I would like to order a cardiac workup, cardiac enzymes, chest x-ray which would help further evaluation for this work up. I do not think that patients symptoms represents STEMI, at this time in the initial work up. Additionally, after initial assessment of this patient, we will pursue workup of the chest pain, initial triage EKG does not show acute STEMI, administer some fentanyl, aspirin, patient has no PCP, some palpitations, sinus tachycardia initially and monitor EKG showed sinus rhythm. Data Reviewed Tests: ordered and reviewed Decide to obtain previous medical records or to obtain history from someone other than the patient: Reviewed [facility] EMR to see if recent visits or hospitalizations. Review and summarized past medical records if pertinent and [facility]: Data Interpretation: I have have reviewed returned data from lab. Clinically important interpretation is: CBC is unremarkable Basic Metabolic panel with normal renal function, no significant abnormality Coags normal Initial cardiac enzymes negative d-d-tracy neg EKG: EKG time: 07 Rhythm:[normal sinus] Rate:88 [place]:[normal] QRS:81 QT interval:399 ST/T wave changes: No acute elevations or depressions are noted, flat T-wave in lead aVL Compared to prior EKG dated [*] : no old Radiology results: Chest x-ray reviewed by myself, and interpreted by the radiologist reveals no acute process, mediastinum appears normal, no infiltrate, no pneumothorax. No free air under the diaphragm, osseous structures appear normal. ED Course / Patient Re-evaluation: Time: 815 I have reassessed the patient at bedside. The patient does appear comfortable at this time. They have received aspirin, fentanyl Patient is: Resting completely feeling much better blood pressure is 156/88 After this reassessment I will: On the plan for admission for this gentleman here, he has not seen a doctor in years he's hypertensive here her nose with his cholesterol is he smokes male had presented significant symptoms and brought him here today, wouldn't be here in the hospital he said if it wasn't significant. He has no outpatient follow-up. I think he benefit from observation ,blood pressure control ,testing for his cholesterol and then stress testing as well. Will be admitted to the CCU. Admit decision based on need for further evaluation, additional testing and stabilization of condition. Discussed case with Hospitalist I reviewed test results and clinical findings with admitting provider. Agreed upon treatment plan. Health care provider will see patient in hospital. I had a detailed discussion with the patient and family members present regarding: the historical points, exam findings, and diagnostic results supporting the need for admission to the hospital. This includes lab results, radiology results. Patient is in agreement for admission at this time. Assessment/Plan 1. Chest pain 2. Dyspnea 3. Palpitations 4. Hypertension Orders: Request for Admit Problem List/Past Medical History Ongoing No qualifying data Historical No qualifying data Medications Home No active home medications Inpatient Normal Saline Flush 0.9% injectable solution, 10 mL, IV Push, As Indicated, PRN Prescriptions No active Prescriptions Allergies No active allergies Lab Results Automated Hematology LATEST RESULTS WBC 11/20/18 07:12 12.8 High RBC 11/20/18 07:12 4.86 Hgb 11/20/18 07:12 15.8 Hct 11/20/18 07:12 46.3 MCV 11/20/18 07:12 95.3 MCH 11/20/18 07:12 32.5 MCHC 11/20/18 07:12 34.1 RDW 11/20/18 07:12 13.0 Platelet 11/20/18 07:12 202 Mean Platelet Volume 11/20/18 07:12 8.6 Neutro Auto 11/20/18 07:12 63.1 Lymph Auto 11/20/18 07:12 27.3 [place] Auto 11/20/18 07:12 6.9 Eos Auto 11/20/18 07:12 1.9 Basophil Auto 11/20/18 07:12 0.8 Neutro Absolute 11/20/18 07:12 8.1 High Lymph Absolute 11/20/18 07:12 3.5 [place] Absolute 11/20/18 07:12 0.9 Eos Absolute 11/20/18 07:12 0.2 Baso Absolute 11/20/18 07:12 0.1 Coagulation LATEST RESULTS PT 11/20/18 07:12 9.7 INR 11/20/18 07:12 0.9 PTT 11/20/18 07:12 24.2 D-Dimer 11/20/18 07:12 0.34 Routine Chemistry LATEST RESULTS Sodium Lvl 11/20/18 07:12 137 Potassium Lvl 11/20/18 07:12 4.4 Chloride 11/20/18 07:12 105 CO2 11/20/18 07:12 22 Anion Gap 11/20/18 07:12 14 Glucose Lvl 11/20/18 07:12 100 BUN 11/20/18 07:12 13 Creatinine Lvl 11/20/18 07:12 0.70 eGFR AA 11/20/18 07:12 >60 eGFR Non-AA 11/20/18 07:12 >60 BUN Crea Ratio 11/20/18 07:12 18.6 Calcium Lvl 11/20/18 07:12 8.7 Cardiac Isoenzymes LATEST RESULTS Initial Myoglobin 11/20/18 07:12 29.0 Initial Troponin 11/20/18 07:12 <0.03 Diagnostic Results XRay XR Chest 1 View 11/20/18 07:59:31 IMPRESSION:Geometric opacity over the left costophrenic angle is favored to relate to the cardiac lead wire. There are no prior exams available for comparison. A repeat PA and lateral exam is recommended when the lead wires can be removed. Signed By: Heaven BEDOLLA, Anisa Guerrero Computerized Tomagraphy No qualifying data available (CT) Ultrasound No qualifying data available (Ultrasound) Magnetic Resonance Imaging No qualifying data available (MRI) ___ Suad Jones Electronically signed by ___ Ramy Dooley DO 11/20/2018 08:35 EDT Normal [facility] History and Physicalon 11-20 History and Physical Chief Complaint dyspnea with left chest discomfort sudden onse History of Present Illness 53-year-old male presents emergency room with sudden onset of chest pain that occurred this morning. He states the pain failure tightness in his chest and he was unable to breathe. It got to the floor once in his shop and then again when he went to struck. He states the pain is worse with movement and deep breath. He complains of shortness of breath due to pain in his chest. He denies any radiation, nausea vomiting palpitations or dizziness. Pain comes and goes in the past 7 out of 10. He has had a cough for the past 2 weeks. He wants to go outside and smoke a cigarette. Denies any fevers chills or sputum. Review of Systems All 12 systems are reviewed and as per HPI. Physical Exam Vitals & Measurements T: 36.4 ?C (Oral) HR: 61 (Monitored) RR: 18 BP: 136/77 SpO2: 94% WT: 67.8 kg DOSE WT: 67.8 kg General: alert and oriented, well nourished, no acute distress. Eye: PERRL, EOMI, normal conjunctiva. HENT: Normocephalic, clear tympanic membranes, normal hearing, moist oral mucosa, no scleral icterus, no sinus tenderness. Neck: Supple, non-tender, no carotid bruits, no JVD, no lymphadenopathy. Lungs: Clear to auscultation and percussion, non-labored respiration. Tenderness to palpation over left lower chest that slightly reproduces his symptoms. Heart: Normal rate, regular rhythm, no murmur, gallop or edema. Abdomen: Soft, non-tender, non-distended, normal bowel sounds, no masses. Musculoskeletal: Normal range of motion and strength, no tenderness or swelling. Skin: Skin is warm, dry and pink, no rashes or lesions. Neurologic: Awake, alert, and oriented X3, CN II-XII intact. Psychiatric: Cooperative, appropriate mood and affect. Additional Vitals Body Mass Index Measured: 21.45 kg/m2 Peripheral Pulse Rate: 73 bpm Last 24 Hours Basic Metabolic Panel: Hematology: Sodium Lvl: 137 (11/20/18) Hgb: 15.8 (11/20/18) Potassium Lvl: 4.4 (11/20/18) Hgb A1c: ------ Phosphorus: ------ WBC: 12.8 (11/20/18) Magnesium Lvl: ------ Platelet: 202 (11/20/18) BUN: 13 (11/20/18) INR POC: 0.9 (11/20/18) Creatinine Lvl: 0.70 (11/20/18) Creatinine Clearance: ------ Additional - Last 24 Hours 2 Hour Myoglobin: 22.0 (11/20/18) 2 Hour Troponin: <0.03 (11/20/18) Anion Gap: 14 (11/20/18) Baso Absolute: 0.1 (11/20/18) Basophil Auto: 0.8 (11/20/18) BUN Crea Ratio: 18.6 (11/20/18) Calcium Lvl: 8.7 (11/20/18) Chloride: 105 (11/20/18) CO2: 22 (11/20/18) D-Dimer: 0.34 (11/20/18) eGFR AA: >60 (11/20/18) eGFR Non-AA: >60 (11/20/18) Eos Absolute: 0.2 (11/20/18) Eos Auto: 1.9 (11/20/18) Glucose Lvl: 100 (11/20/18) Hct: 46.3 (11/20/18) Initial Myoglobin: 29.0 (11/20/18) Initial Troponin: <0.03 (11/20/18) Lymph Absolute: 3.5 (11/20/18) Lymph Auto: 27.3 (11/20/18) MCH: 32.5 (11/20/18) MCHC: 34.1 (11/20/18) MCV: 95.3 (11/20/18) Mean Platelet Volume: 8.6 (11/20/18) [place] Absolute: 0.9 (11/20/18) [place] Auto: 6.9 (11/20/18) Neutro Absolute: 8.1 (11/20/18) Neutro Auto: 63.1 (11/20/18) PT: 9.7 (11/20/18) PTT: 24.2 (11/20/18) RBC: 4.86 (11/20/18) RDW: 13.0 (11/20/18) Assessment/Plan 1. Chest pain Rule out ND Stress test Cardiology consult 2. Dyspnea Repeat chest x-ray DuraNeb's when necessary 3. Palpitations 4. Hypertension Continue to monitor for now Tobacco abuse?nicotine patch Problem List/Past Medical History Ongoing No chronic problems Historical No qualifying data Procedure/Surgical History bilateral rotator cuff repairs left leg surgery- pins right hip surgery Medications Home No active home medications Inpatient Normal Saline Flush 0.9% injectable solution, 10 mL, IV Push, As Indicated, PRN Prescriptions No active Prescriptions Allergies No Known Medication Allergies Social History Alcohol Current, Beer Substance Abuse Denies All Tobacco 10 or more cigarettes (1/2 pack or more)/day in last 30 days Use:. Cigarettes, 1 per day. Lab Results Microbiology No qualifying data available. Diagnostic Results Diagnostic Radiology XR Chest 1 View 11/20/18 07:59:31 IMPRESSION:Geometric opacity over the left costophrenic angle is favored to relate to the cardiac lead wire. There are no prior exams available for comparison. A repeat PA and lateral exam is recommended when the lead wires can be removed. Signed By: Anisa Collado MD Computed Tomography No qualifying data available. Ultrasound No qualifying data available. Magnetic Resonance Imaging No qualifying data available. Nuclear Medicine No qualifying data available. Electronically signed by ___ Gee Benoit MD 11/20/18 10:06 EDT Normal [facility] Inpatient Clinical Summaryon 11-20-2018 Inpatient [place] [address] [address] Clinical Summary Person Information Name: Ahsan Rivas Age: 53 Years : 1965 Sex: Male PCP: Marital Status: Single Phone: PCP: Race: White Ethnicity: Not or Language: Citizen Of [place] Visit Id: Visit Reason: Dyspnea; Chest pain - Cardiac Speciality: Acuity: Enc Type: Observation Med Service: Emergency Medicine Arrival: 11/20/2018 07:05:00 Discharge: Dispo Type: Admitted to ICU [address]: [address] [place] [address] Diagnosis: 1:Chest pain; 2:Dyspnea; 3:Palpitations; 4:Hypertension Discharged To: Home Treatments: Devices/Equipment: Professional Skilled Services: Special Services and Community Resources: Mode of Discharge Transportation: Discharge Orders Allergies No Known Medication Allergies Functional Status: Sensory Deficits: History of Falls: Mobility Assistance Prior to Admission: ADLs: Independent Gait: Ambulation Assist: Assistive Device: Special Orthopedic Devices: Current Level of Assistance for Self-Care/Mobility: Cognitive Status: Orientation: Orientation Assessment Oriented x 4 Level of Consciousness: Alert Characteristics of Speech: Clear Aspiration Risk: None Affect/Behavior: Appropriate, Calm, Cooperative Laboratory or Other Results This Visit (last charted value for your 11/20/2018 visit) Hematology 11/20/2018 7:12 AM WBC: 12.8 x10 RBC: 4.86 x10 Neutro Auto: 63.1 % -- Normal range between ( 47.2 and 70.8 ) Lymph Auto: 27.3 % -- Normal range between ( 27.2 and 40.8 ) [place] Auto: 6.9 % -- Normal range between ( 4.7 and 13.9 ) Eos Auto: 1.9 % -- Normal range between ( 0.0 and 6.1 ) Basophil Auto: 0.8 % -- Normal range between ( 0.0 and 1.2 ) Baso Absolute: 0.1 x10 MCV: 95.3 fL -- Normal range between ( 80.0 and 100.0 ) MCHC: 34.1 % -- Normal range between ( 31.0 and 37.0 ) Lymph Absolute: 3.5 x10 Hct: 46.3 % -- Normal range between ( 41.0 and 53.0 ) [place] Absolute: 0.9 x10 MCH: 32.5 pg -- Normal range between ( 27.0 and 35.0 ) Neutro Absolute: 8.1 x10 Hgb: 15.8 g/dL -- Normal range between ( 13.5 and 17.5 ) Mean Platelet Volume: 8.6 fL -- Normal range between ( 6.7 and 10.6 ) Platelet: 202 x10 Eos Absolute: 0.2 x10 RDW: 13.0 % -- Normal range between ( 11.6 and 14.8 ) Coagulation 11/20/2018 7:12 AM PT: 9.7 seconds -- Normal range between ( 9.2 and 11.7 ) INR: 0.9 ratio PTT: 24.2 seconds -- Normal range between ( 20.6 and 27.7 ) D-Dimer: 0.34 mg/L feu -- Normal range between ( 0.00 and 0.49 ) Chemistry 11/20/2018 3:27 PM 6 Hour Troponin: <0.03 ng/mL -- Normal range between ( 0.00 and 0.03 ) 6 Hour Myoglobin: 27.0 ng/mL -- Normal range between ( 17.4 and 105.7 ) 11/20/2018 8:57 AM 2 Hour Troponin: <0.03 ng/mL -- Normal range between ( 0.00 and 0.03 ) 2 Hour Myoglobin: 22.0 ng/mL -- Normal range between ( 17.4 and 105.7 ) 11/20/2018 7:12 AM Creatinine Lvl: 0.70 mg/dL -- Normal range between ( 0.61 and 1.24 ) BUN: 13 mg/dL -- Normal range between ( 8 and 26 ) Glucose Lvl: 100 mg/dL -- Normal range between ( 74 and 118 ) Potassium Lvl: 4.4 mmol/L -- Normal range between ( 3.4 and 4.8 ) Sodium Lvl: 137 mmol/L -- Normal range between ( 133 and 142 ) Calcium Lvl: 8.7 mg/dL -- Normal range between ( 8.5 and 10.3 ) Chloride: 105 mmol/L -- Normal range between ( 98 and 110 ) CO2: 22 mmol/L -- Normal range between ( 22 and 32 ) Anion Gap: 14 -- Normal range between ( 7 and 17 ) eGFR Non-AA: >60 mL/min/1.73m? eGFR AA: >60 mL/min/1.73m? BUN Crea Ratio: 18.6 -- Normal range between ( 10.0 and 20.0 ) Initial Troponin: <0.03 ng/mL -- Normal range between ( 0.00 and 0.03 ) Initial Myoglobin: 29.0 ng/mL -- Normal range between ( 17.4 and 105.7 ) Diagnostic Radiology 11/20/2018 1:50 PM XR Chest 2 Views: XR Chest 2 Views 11/20/2018 7:50 AM XR Chest 1 View: XR Chest 1 View Nuclear Medicine 11/20/2018 12:47 PM NM CARDIOLITE W/EXER STRESS: NM CARDIOLITE W/EXER STRESS Measurements: Height: Weight: Blood Pressure: 151 mmHg / BMI: Respiratory: Respirations: Unlabored Respiratory Symptoms: Shortness of breath Cardiovascular: Heart Sounds: Heart Rhythm: Regular Gastrointestinal: GI Symptoms: Bowel Sounds: Present Vital Signs: Temp Axillary: Temp Temporal Artery: Temp Oral: 36.7 degC Temp Rectal: Apical Heart Rate: Peripheral Pulse Rate: 69 bpm Heart Rate: 77 bpm Respiratory Rate: 16 br/min Diet Diet: Feeding Tolerance: Appetite: Good Alejandro Assessment: 21 Procedures left leg surgery- pins bilateral rotator cuff repairs right hip surgery Immunizations No Immunizations Documented This Visit HERE ARE THE MEDICATION CHANGES THAT OCCURRED DURING YOUR HOSPITAL STAY PROVIDED FOR YOU IS A LIST OF YOUR PATIENT?S CURRENT MEDICATIONS No Known Home Medications Care Team Members: Attending Physician: Gee Benoit MD Consulting Physician: Deion Monk MD Referring Physician: Follow up: With: Address: When: Guille Khan [address] [place] [address], [address] [place] [address] [phone] Business (1) 11/27/2018 15:00:00 Comments: Appointment Scheduled Type Location Start [facility] New Patient Visit 30 Jourdan Redman 11/27/2018 15:00:00 11/27/2018 15:30:00 Confirmed Normal [facility] NM CARDIOLITE W/EXER STRESSo n 11-20-2018 NM CARDIOLITE W/EXER STRESS Myocardial Perfusion Imaging Report Arnie Protocol Height: 178 cm (70.1 in) Weight: 68 kg (149.6 lb) Ordering Physician: Gee Benoit Referring Physician: Gee Benoit Reading Physician: Deion Monk MD Indications: Chest Pain Summary: 1. Stress ECG conclusions: The stress ECG is normal. Sykes scoring: exercise time of 3.15 min; maximum ST deviation of 0 mm; no angina; resulting score is 3. This score predicts a moderate risk of cardiac events. 2. Myocardial perfusion imaging: No myocardial perfusion defects noted. History: Risk factors: Current tobacco use. Hypertension. No diabetes. Study data: Consent: The risks, benefits, and alternatives to the procedure were explained to the patient and informed consent was obtained. Procedure data: Initial setup. The patient was brought to the laboratory. A baseline ECG was recorded. Intravenous access was obtained. Surface ECG leads and manual cuff blood pressure measurements were monitored. Treadmill exercise testing was performed using the Arnie protocol. The patient exercised for 3 min 9 sec, to protocol stage 2, to a maximal work rate of 4.7 mets. Baseline ECG: Normal. Stress protocol: - REST; 0% incline ): HR 86 bpm, BP 138/81 (100) rest . Supine. - STAGE 1; 10% incline ): HR 150 bpm, BP 166/81 (109) cardioite. - ; 12% incline ): HR 148 bpm, BP 166/81 (109) Peak. - RECOVERY; 0% incline ): HR 76 bpm, BP 155/85 (108) - Resting Symptoms: none - Peak stress ): HR 151 bpm, BP 173/85 (114) Stress results: Maximal heart rate during stress was 151 bpm (91% of maximal predicted heart rate). The maximal predicted heart rate was 166 bpm.The target heart rate was achieved. The rate-pressure product for the peak heart rate and blood pressure was 15633 mm Hg/min. Stress ECG: The stress ECG is normal. Sykes scoring: exercise time of 3.15 min; maximum ST deviation of 0 mm; no angina; resulting score is 3. This score predicts a moderate risk of cardiac events. Severe dyspnea led to termination, no angina. Isotope administration: - Rest Tc[99m]-sestamibi 13.5 mCi 11:20 AM IV - Stress Tc[99m]-sestamibi 41.3 mCi 12:08 PM IV Image properties: Imaging information: The stress images were gated. The image quality was good. CT attenuation corrected and non-corrected images were obtained. Myocardial perfusion imaging: No myocardial perfusion defects noted. The TID ratio is 0.9. Gated SPECT: The left ventricular end-diastolic volume is 83 ml. The overall calculated left ventricular ejection fraction is 71 %. Electronically signed by Deion Monk MD 11/20/2018 15:37 Final Dictated by: Deion Monk MD Dictated DT/TM: 11/20/2018 3:38 pm Signed by: Deion Monk MD Signed (Electronic Signature): 11/20/2018 3:38 pm (If Report Is Signed, Electronically Signed in Other Vendor System) Normal [facility] PTon 11-20-2018 INR Coag (PPP) [Relative time] 0.9 {INR} Normal <=3.5 [facility] Comment on above: Result Comment: INR has no normal range. INR Therapeutic range is: 2.0-3.0 (AF, CVA, TIAs, DVT prophylaxis, acute DVT) 2.5-3.5 ([facility] heart valves, recurrent thrombosis/emboli) Performed By: #### P TINR #### [address] [address] PT Coag (PPP) [Time] 9.7 s Normal 9.2-11.7 [facility] Comment on above: Performed By: #### P TINR #### [address] [address] PTTon 11-20-2018 aPTT Coag (Bld) [Time] 24.2 s Normal 20.6-27.7 [facility] Comment on above: Performed By: #### P TT #### [address] [address] XR Chest 1 Viewon 11-20-2018 XR Chest 1 View Procedure: Portable AP view of the chest. Clinical information: Acute syncopal episode. Chronic cough Comparison: None. Findings: Cardiac lead wires overlie the chest. Lungs/pleura: There is a focal geometric opacity adjacent to the cardiac lead wires over the left lateral costophrenic angle. The lungs are otherwise clear. No pneumothorax or frontal view evidence for pleural effusion. Heart/mediastinum: Unremarkable silhouette. Bones/soft tissues: No gross acute or aggressive abnormality. IMPRESSION: Geometric opacity over the left costophrenic angle is favored to relate to the cardiac lead wire. There are no prior exams available for comparison. A repeat PA and lateral exam is recommended when the lead wires can be removed. Final Dictated by: Anisa Collado MD Dictated DT/TM: 11/20/2018 7:59 am Signed by: Anisa Collado MD Signed (Electronic Signature): 11/20/2018 8:01 am (If Report Is Signed, Electronically Signed in Other Vendor System) Normal [facility] XR Chest 2 Viewson 9 XR Chest 2 Views Views: PA and latera l Indication: Follow-up cough shortness of breath in 53 years Male Comparisons: Single AP view earlier the same day Findings: The left CP angle lead has been removed along with the questionable opacity associated with it. There is no other change. Impression: Unremarkable chest Final Dictated by: Shiva Hill MD Dictated DT/TM: 11/20/2018 2:05 pm Signed by: Shiva Hill MD Signed (Electronic Signature): 11/20/2018 2:08 pm (If Report Is Signed, Electronically Signed in Other Vendor System) Normal [facility] Cult,Urineon 10-25-2017 Cult,Urine Specimen Description .CLEAN CATCH URINE Performed at [address] [place], [place] [id number] [phone] Special Requests NOT REPORTEDCulture NO GROWTH Performed at [address] [address] Report Status FINAL 10/25/2017 Normal [facility] Comment on above: Performed By: #### U RC ####[address] [phone] [place] [address] CBC with Diffon 10-24-2017 Abs. Basophil 0.05 k/uL Normal 0.00-0.20 [facility] Comment on above: Performed By: #### C DP, CP, LIP ####[address] [place] [address] Abs.Neutrophil (Seg) 5.37 k/uL Normal 1.50-8.10 [facility] Comment on above: Performed By: #### C DP, CP, LIP ####[address] [place] [address] Basophils/100 WBC Auto (Bld) 1 % Normal 0-2 [facility] Comment on above: Performed By: #### C DP, CP, LIP ####[address] [place] [address] Eosinophils 0.57 10*3/uL High 0.00-0.44 [facility] Comment on above: Performed By: #### C DP, CP, LIP ####[address] [place] [address] Eosinophils/100 leukocytes 7 % High 1-4 [facility] Comment on above: Performed By: #### C DP, CP, LIP ####[address] [place] [address] Erythrocyte distribution width Auto Ratio (RBC) 13.4 % Normal 11.8-14.4 [facility] Comment on above: Performed By: #### C DP, CP, LIP ####[address] [place] [address] Erythrocytes (RBC) 0.0 per 100 WBC Normal 0.0 [facility] Comment on above: Performed By: #### C DP, CP, LIP ####[address] [place] [address] Erythrocytes (RBC) 5.69 10*6/uL Normal 4.21-5.77 [facility] Comment on above: Performed By: #### C DP, CP, LIP ####[address] [place] [address] Granulocytes/100 WBC (Bld) 0.04 k/uL Normal 0.00-0.30 [facility] Comment on above: Result Comment: Perf ormed at [address] [place] [address] Performed By: #### C DP, CP, LIP ####[address] [place] [address] Hematocrit (HCT) 51.0 % High 40.7-50.3 [facility] Comment on above: Performed By: #### C DP, CP, LIP ####[address] [place] [address] Hemoglobin mass conc (Bld) 18.0 g/dL High 13.0-17.0 [facility] Comment on above: Performed By: #### C DP, CP, LIP ####[address] [place] [address] Immature granulocytes #/vol (Bld) 1 % High 0 [facility] Comment on above: Performed By: #### C DP, CP, LIP ####[address] [place] [address] Lymphocytes 1.35 10*3/uL Normal 1.10-3.70 [facility] Comment on above: Performed By: #### C DP, CP, LIP ####[address] [place] [address] Lymphocytes/100 leukocytes 15 % Low 24-43 [facility] Comment on above: Performed By: #### C DP, CP, LIP ####[address] [place] [address] MCH 31.6 pg Normal 25.2-33.5 [facility] Comment on above: Performed By: #### C DP, CP, LIP ####[address] [place] [address] MCHC mass conc (RBC) 35.3 g/dL High 28.4-34.8 [facility] Comment on above: Performed By: #### C DP, CP, LIP ####[address] [place] [address] MCV 89.6 fL Normal 82.6-102.9 [facility] Comment on above: Performed By: #### C DP, CP, LIP ####[address] [place] [address] Monocytes 1.36 10*3/uL High 0.10-1.20 [facility] Comment on above: Performed By: #### C DP, CP, LIP ####[address] [place] [address] Monocytes/100 leukocytes 16 % High 3-12 [facility] Comment on above: Performed By: #### C DP, CP, LIP ####[address] [place] [address] Neutrophil (Seg) 61 % Normal 36-65 [facility] Comment on above: Performed By: #### C DP, CP, LIP ####[address] [place] [address] Platelet mean volume (PMV) 10.5 fL Normal 8.1-13.5 [facility] Comment on above: Performed By: #### C DP, CP, LIP ####[address] , [facility]83 Platelets 186 10*3/uL Normal 138-453 [facility] Comment on above: Performed By: #### C DP, CP, LIP ####[address] [place] [address] WBC (Leukocytes) 8.7 10*3/uL Normal 3.5-11.3 [facility] Comment on above: Performed By: #### C DP, CP, LIP ####[address] [place] [address] Auto Diff Performed NOT REPORTED Normal [facility] Comment on above: Performed By: #### C DP, CP, LIP ####[address] [place] [address] Erythrocyte morphology NOT REPORTED Normal [facility] Comment on above: Performed By: #### C DP, CP, LIP ####[address] [place] [address] Platelets NOT REPORTED Normal [facility] Comment on above: Performed By: #### C DP, CP, LIP ####[address] [place] [address] WBC Morphology NOT REPORTED Normal [facility] Comment on above: Performed By: #### C DP, CP, LIP ####[address] [place] [address] Comp Metabolic Profon 2017 (cont.) Normal [facility] Comment on above: Result Comment: Aver age GFR for 50-59 years old: 93 mL/min/1.73sq mChronic Kidney Disease: <60 mL/min/1.73sq mKidney failure: <15 mL/min/1.73sq meGFR calculated using average adult body mass. Additional eGFR calculator available at:http://www.[employer]/multiple_crcl_2012.htm Performed By: #### C DP, CP, LIP ####[address] [place] [address] Alanine aminotransferase (ALT) 18 U/L Normal 5-41 [facility] Comment on above: Performed By: #### C DP, CP, LIP ####[address] [place] [address] Albumin 4.2 g/dL Normal 3.5-5.2 [facility] Comment on above: Performed By: #### C DP, CP, LIP ####[address] [place] [address] Albumin/Globulin Ratio 1.2 {ratio} Normal 1.0-2.5 [facility] Comment on above: Performed By: #### C DP, CP, LIP ####[address] [place] [address] Alkaline Phos 74 U/L Normal 40-129 [facility] Comment on above: Performed By: #### C DP, CP, LIP ####[address] [place] [address] Anion gap 16 mmol/L Normal 9-17 [facility] Comment on above: Performed By: #### C DP, CP, LIP ####[address] [place] [address] Aspartate aminotransferase (AST) 24 U/L Normal <40 [facility] Comment on above: Performed By: #### C DP, CP, LIP ####[address] , [facility]83 Bilirubin Ql (U) 0.64 mg/dL Normal 0.3-1.2 [facility] Comment on above: Performed By: #### C DP, CP, LIP ####[address] [place] [address] BUN/CRE Ratio 15 Normal 9-20 [facility] Comment on above: Performed By: #### C DP, CP, LIP ####[address] , [facility]83 Calcium 9.2 mg/dL Normal 8.6-10.4 [facility] Comment on above: Performed By: #### C DP, CP, LIP ####[address] [place] [address] Chloride 91 mmol/L Low 98-107 [facility] Comment on above: Performed By: #### C DP, CP, LIP ####[address] , [facility]83 CO2 23 mmol/L Normal 20-31 [facility] Comment on above: Performed By: #### C DP, CP, LIP ####[address] [place] [address] Creatinine 0.94 mg/dL Normal 0.70-1.20 [facility] Comment on above: Performed By: #### C DP, CP, LIP ####[address] [place] [address] eGFR (non-black) mL/min/{1.73_m2} Normal >60 [facility] Comment on above: Performed By: #### C DP, CP, LIP ####[address] [place] [address] Glucose mass conc 113 mg/dL High 70-99 [facility] Comment on above: Performed By: #### C DP, CP, LIP ####[address] [place] [address] Potassium molar conc 4.8 mmol/L Normal 3.7-5.3 [facility] Comment on above: Performed By: #### C DP, CP, LIP ####[address] [place] [address] Protein 7.6 g/dL Normal 6.4-8.3 [facility] Comment on above: Performed By: #### C DP, CP, LIP ####[address] [place] [address] Sodium 130 mmol/L Low 135-144 [facility] Comment on above: Performed By: #### C DP, CP, LIP ####[address] [place] [address] Staging: Normal [facility] Comment on above: Result Comment: Stag e 1: Some kidney damage normal GFRStage 2: Mild kidney damage GFR 60-89Stage 3: Moderate kidney damage GFR 30-59Stage 4: Severe kidney damage GFR 15-29Stage 5: Severe kidney damage GFR <15ESRD - chronic treatment by dialysis or transplantPerformed at [address] [place] [address] Performed By: #### C DP, CP, LIP ####[address] [place] [address] Urea nitrogen 14 mg/dL Normal 6-20 [facility] Comment on above: Performed By: #### C DP, CP, LIP ####[address] [place] [address] Lipaseon 10-24-2017 Lipase 27 U/L Normal 13-60 [facility] Comment on above: Result Comment: Perf ormed at [address] [place] [address] Performed By: #### C DP, CP, LIP ####[address] [place] [address] Urinalysis w/ Microon 2017 ----- Normal [facility] Comment on above: Performed By: #### U AMIC ####[address] [place] [address] Acetaminophen mass conc 1+ Abnormal NEG [facility] Comment on above: Performed By: #### U AMIC ####[address] [place] [address] Bilirubin (direct) Negative Normal NEG [facility] Comment on above: Performed By: #### U AMIC ####[address] [place] [address] Hemoglobin mass conc (Bld) Negative Normal NEG [facility] Comment on above: Performed By: #### U AMIC ####[address] [place] [address] Nitrite,Ur Negative Normal NEG [facility] Comment on above: Performed By: #### U AMIC ####[address] [place] [address] Turbidity CLEAR Normal CLEAR [facility] Comment on above: Performed By: #### U AMIC ####[address] [place] [address] Urine WBC's 0 TO 2 Normal 0-5 [facility] Comment on above: Performed By: #### U AMIC ####[address] [place] [address] Urine, color YELLOW Normal YEL [facility] Comment on above: Performed By: #### U AMIC ####[address] [place] [address] Urine, epithelial cells in sediment 0 TO 2 Normal 0-5 [facility] Comment on above: Result Comment: Perf ormed at [address] [place] [address] Performed By: #### U AMIC ####[address] [place] [address] Urine, erythrocytes 0 TO 2 Normal 0-2 [facility] Comment on above: Performed By: #### U AMIC ####[address] [place] [address] Urine, glucose presence Negative Normal NEG [facility] Comment on above: Performed By: #### U AMIC ####[address] [place] [address] Urine, leukocyte esterase presence Negative Normal NEG [facility] Comment on above: Performed By: #### U AMIC ####[address] [place] [address] Urine, pH 6.5 [pH] Normal 5.0-9.0 [facility] Comment on above: Performed By: #### U AMIC ####[address] [place] [address] Urine, protein presence Negative Normal NEG [facility] Comment on above: Performed By: #### U AMIC ####[address] [place] [address] Urine, specific gravity <1.005 Low 1.010-1.020 [facility] Comment on above: Performed By: #### U AMIC ####[address] [place] [address] Urobilinogen,Ur Normal Normal NORM [facility] Comment on above: Performed By: #### U AMIC ####[address] [place] [address] Comment NOT REPORTED Normal [facility] Comment on above: Performed By: #### U AMIC ####[address] [place] [address] Epithelial, Renal NOT REPORTED Normal 0 [facility] Comment on above: Performed By: #### U AMIC ####[address] [place] [address] Mucus Strands NOT REPORTED Normal NONE [facility] Comment on above: Performed By: #### U AMIC ####[address] [place] [address] Other Observations NOT REPORTED Normal NREQ [facility] Comment on above: Performed By: #### U AMIC ####[address] [place] [address] Trichomonas NOT REPORTED Normal NONE [facility] Comment on above: Performed By: #### U AMIC ####[address] [place] [address] Urine, amorphous sediment presence in sediment NOT REPORTED Normal [facility] Comment on above: Performed By: #### U AMIC ####[address] [place] [address] Urine, bacteria in sediment NOT REPORTED Normal NONE [facility] Comment on above: Performed By: #### U AMIC ####[address] [place] [address] Urine, casts in sediment NOT REPORTED Normal [facility] Comment on above: Performed By: #### U AMIC ####[address] [place] [address] Urine, crystals in sediment NOT REPORTED Normal NONE [facility] Comment on above: Performed By: #### U AMIC ####[facility] [id number] Urine, yeast presence in sediment NOT REPORTED Normal NONE [facility] Comment on above: Performed By: #### U AMIC ####[facility] [id number] Discharge Summaryon 03-11-20 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 [facility] Encounters Encounter Date Encounter Type Care Provider Facility Start: 11-20-2018 End: 11-20-2018 Patient encounter procedure GEE HARGROVE KAREN Facility:[facility] Start: 10-24-2017 End: 10-24-2017 Emergency department patient visit [facility] Start: 12-27-2016 End: 12-28-2016 Ambulatory [facility] Procedures Date Procedure Procedure Detail Performing Clinician Start: 10-24-2017 NURSING COMMUNICATION S RAINA LONG Start: 10-24-2017 URINALYSIS WITH MICROSCOPIC ANABEL [place] Start: 10-24-2017 URINE CULTURE ANABEL LACY Start: 10-24-2017 CBC WITH AUTO DIFFERENTIAL ANABEL [place] Start: 10-24-2017 COMPREHENSIVE METABOLIC PANEL ANABEL [place] Start: 10-24-2017 LIPASE ANABEL DELGADILLO Start: 10-24-[address] EVEN [place] Payers Date Payer Category Payer Self-pay 2016 Unknown [id number] 2015 Unknown [id number] 1965 Unknown [id number] Summary Purpose Family History No Family History Records FoundNo Family History Records Found Advance Directives No Advanced Directives Records FoundNo Advanced Directives Records Found Hospital Course Note Admission Information 53-yea r-old male presents emergency room with sudden onset of chest pain that occurred this morning. He states the pain failure tightness in his chest and he was unable to breathe. It got to the floor once in his shop and then again when he went to struck. He states the pain is worse with movement and deep breath. He complains of shortness of breath due to pain in his chest. He denies any radiation, nausea vomiting palpitations or dizziness. Pain comes and goes in the past 7 out of 10. He has had a cough for the past 2 weeks. He wants to go outside and smoke a cigarette. Denies any fevers chills or sputum. [1] Hospital Course He ruled out for ND. Chest x-ray was normal. Stress test was unremarkable. He was seen by cardiology. He had reproducible chest pain. His breathing is much improved. He was examining well tolerating regular diet. He wanted to be discharged. He was discharged to home in stable condition. Arrangements were made for outpatient follow-up. [employer] (more content not included)... Additional Source Comments (unrecognized sect ion and content) No Status Records FoundNo Status Records Found INFORMATION SOURCE (unrecogn ized section and content) DATE CREATED AUTHOR 12/25/2017 Liz nichols DATE CREATED AUTHOR CORINE JUNG 04/15/2019 [facility] FOR RECORDS PERTAINING TO PATIENTS WHO ARE OR HAVE BEEN ENROLLED IN A CHEMICAL DEPENDENCY/SUBSTANCEABUSE PROGRAM, SOME INFORMATION MAY BE OMITTED. This clinical summary was aggregated from multiple sources. Caution should be exercised in using it in the provision of clinical care. This summary normalizes information from multiple sources, and as a consequence, information in this document may materially change the coding, format and clinical context of patient data. In addition, data may be omitted in some cases. CLINICAL DECISIONS SHOULD BE BASED ON THE PRIMARY CLINICAL RECORDS. [employer] provides no warranty or guarantee of the accuracy or completeness of information in this document.
[2023-12-04 10:59] LABS: Alanine Aminotransferase 83 U/L (16-63); Albumin Level 4.1 g/dL (3.4-5.0); Alkaline Phosphatase 119 U/L (46-116); Aspartate Amino Transferase 56 U/L (15-37); Bilirubin Direct 0.2 mg/dL (0.0-0.2); Bilirubin Total 1.1 mg/dL (0.2-1.0); Globulin 4.3 g/dL; Total Protein 8.4 g/dL (6.4-8.2)
[2023-12-05 08:13] LABS: HBsAg Screen Negative (Negative); HCV Ab Non Reactive (Non Reactive); Hep A Ab, IgM Negative (Negative); Hep B Core Ab, IgM Positive (Negative)
== END 2023-12-04 10:12 | disposition home or self-care (01) ==
LOC: LAB 10:14
PROVIDERS: PCP Nurse Practitioner; Visit Provider Nurse Practitioner
DX: R79.89 Other specified abnormal findings of blood chemistry (principal)
CPT/HCPCS: 36415; 80074; 80076

== ENCOUNTER 2023-12-12 07:10 | Outpatient (OUT) | payer OTHER, SELFPAY ==
--- OUTSIDE RECORDS SUMMARY | 2023-12-12 07:12 | XMS_ITS | CCD ---
Author Organization [place] [employer] [facility] Care Team Providers Care Insurance Solicitor Name Role Phone ANABEL LONG Unavailable Unavailable ANABEL LONG Unavailable Unavailable ANABEL LONG Unavailable Unavailable ANABEL LONG Unavailable Unavailable TAMMY CONTRERAS Unavailable Unavailable KARENGEE Admitting Unavailable KARENGEE Segura Attending Unavailable DEION MONK Consulting Unavailerendira ble TOMMIE, Physician - Emergency Consulting Kajal Wood Consulting Unavailable ELISABETH PEREZ Attending Unavailable Allergies Allergy Classification Reported Allergen(s) Allergy Type Date of Onset Reaction(s) Facility (1 source) No Known Medication Allergies; Translations: [No Known Medication Allergies] Propensity to adverse reactions to drug (disorder) [facility] Repository Problems Problem Classification Problem Date Documented Da te Episodic/Chronic Essential hypertension (2 sources) Essential (primary) hypertension; Translations: [Essential (primary) hypertension] Onset: 12-10-2023 Chronic Nausea and vomiting (1 source) Nausea with vomiting, unspecified; Translations: [Nausea with vomiting, unspecified] Onset: 10-24-2017 Episodic Noninfectious gastroenteritis (1 source) Noninfective gastroenteritis and colitis, unspecified; Translations: [Noninfective gastroenteritis and colitis, unspecified] Onset: 10-24-2017 Episodic Other gastrointestinal disorders (1 source) Diarrhea, unspecified; Translations: [Diarrhea, unspecified] Onset: 10-24-2017 Episodic Syncope (2 sources) Syncope and collapse; Translations: [Syncope and collapse] Onset: 12-10-2023 Episodic Results Test Name Value Interpretation Reference Range Facility Office Visiton 12-10-2023 Follow-up visit [id number] Javier Nielsen 1965 M Date Provider Department Center 12/10/2023 [id number]-TLGZEOELISABETH PEREZ [facility] Family History Problem Relation Age of Onset Cancer Mother COPD Father Family Status - Relation Status Age at Mother Father Level of Service:42867 [place] OFFICE/OUTPATIENT NEW MODERATE MDM 45 MINUTES Normal [facility] Family Medicine Office/Clini c Noteon 11-27-2018 Family [...] Guille Khan PA-C 11/27/18 15:46 EDT Normal [facility] .eGFRon 11-20-2018 eGFR AA >60 Normal >=60 [facility] Comment on above: Result Comment: Resu lt = 0-14.9 mL/min/1.73 m2 Kidney failure or Dialysis Result = 15-29 mL/min/1.73 m2 Severe decrease in GFR Result = 30-59 mL/min/1.73 m2 Moderate decrease in GFR Result >= 60 mL/min/1.73 m2 Normal or increased GFR Performed By: #### E GFR #### [facility] [address] [place] [address] eGFR Non-AA >60 Normal >=60 [facility] Comment on above: Result Comment: Resu lt [...] dosing. Performed By: #### E GFR #### [address] [address] AMI 2Hron 11-20-2018 2 Hour Myoglobin 22.0 ng/mL Normal 17.4-105.7 [facility] Comment on above: Performed By: #### C BC #### [address] [address] Troponin I.cardiac [Mass/Vol] ng/mL Normal 0.00-0.03 [facility] Comment on above: Result Comment: An i ncreased Troponin-I value, in the absence of myocardial ischemia, may indicate other etiologies of cardiac damage. Performed By: #### C BC #### [address] [address] AMI Initon 11-20-2018 Initial Myoglobin 29.0 ng/mL Normal 17.4-105.7 [facility] Comment on above: Performed By: #### A MI1 #### [address] [address] Troponin I.cardiac [Mass/Vol] ng/mL Normal 0.00-0.03 [facility] Comment on above: Result Comment: An i ncreased Troponin-I value, in the absence of myocardial ischemia, may indicate other etiologies of cardiac damage. Performed By: #### A MI1 #### [address] [address] [id number] 11-20-2018 6 Hour Myoglobin 27.0 ng/mL Normal 17.4-105.7 [facility] Comment on above: Performed By: #### C BC #### [address] [address] Troponin I.cardiac [Mass/Vol] ng/mL Normal 0.00-0.03 [facility] Comment on above: Result Comment: An i ncreased Troponin-I value, in the absence of myocardial ischemia, may indicate other etiologies of cardiac damage. Performed By: #### C BC #### [address] [address] Basic Metabolic Profileon Anion gap [Moles/Vol] 14 mmol/L Normal 7-17 [facility] Comment on above: Performed By: #### C [id number] #### [address] [address] Calcium [Mass/Vol] 8.7 mg/dL Normal 8.5-10.3 [facility] Comment on above: Performed By: #### C [id number] #### [address] [address] Chloride [Moles/Vol] 105 mmol/L Normal 98-110 [facility] Comment on above: Performed By: #### C [id number] #### [address] [address] CO2 [Moles/Vol] 22 mmol/L Normal 22-32 [facility] Comment on above: Performed By: #### C [id number] #### [address] [address] Creatinine [Mass/Vol] 0.70 mg/dL Normal 0.61-1.24 [facility] Comment on above: Performed By: #### C [id number] #### [address] [address] Glucose [Mass/Vol] 100 mg/dL Normal 74-118 [facility] Comment on above: Performed By: #### C [id number] #### [address] [address] Potassium [Moles/Vol] 4.4 mmol/L Normal 3.4-4.8 [facility] Comment on above: Performed By: #### C [id number] #### [address] [address] Sodium [Moles/Vol] 137 mmol/L Normal 133-142 [facility] Comment on above: Performed By: #### C [id number] #### [address] [address] Urea nitrogen [Mass/Vol] 13 mg/dL Normal 8-26 [facility] Comment on above: Performed By: #### C [id number] #### [address] [address] Urea nitrogen/Creatinine [Mass ratio] 18.6 mg/mg Normal 10.0-20.0 [facility] Comment on above: Performed By: #### C [id number] #### [address] [address] CBC w/ Diffon 11-20-2018 Erythrocyte distribution width (RBC) [Ratio] 13.0 % Normal 11.6-14.8 [facility] Comment on above: Performed By: #### C BC #### [address] [address] Hematocrit (Bld) [Volume fraction] 46.3 % Normal 41.0-53.0 [facility] Comment on above: Performed By: #### C BC #### [address] [address] Hemoglobin (Bld) [Mass/Vol] 15.8 g/dL Normal 13.5-17.5 [facility] Comment on above: Performed By: #### C BC #### [address] [address] MCH (RBC) [Entitic mass] 32.5 pg Normal 27.0-35.0 [facility] Comment on above: Performed By: #### C BC #### [address] [address] MCHC (RBC) [Mass/Vol] 34.1 % Normal 31.0-37.0 [facility] Comment on above: Performed By: #### C BC #### [address] [address] MCV (RBC) [Entitic vol] 95.3 fL Normal 80.0-100.0 [facility] Comment on above: Performed By: #### C BC #### [address] [address] Platelet mean volume (Bld) [Entitic vol] 8.6 fL Normal 6.7-10.6 [facility] Comment on above: Performed By: #### C BC #### [address] [address] Platelets (Bld) [#/Vol] 202 x10*3/mcL Normal 150-350 [facility] Comment on above: Performed By: #### C BC #### [address] [address] RBC (Bld) [#/Vol] 4.86 x10*6/mcL Normal 4.30-5.80 [facility] Comment on above: Performed By: #### C BC #### [address] [address] WBC (Bld) [#/Vol] 12.8 x10*3/mcL High 4.5-11.0 [facility] Comment on above: Performed By: #### C BC #### [address] [address] Cardiology Consultationon Cardiology Consultation Chief Complaint dyspnea [...] Electronically signed by ___ Aleshia BEDOLLA, Deion Gee 11/20/18 16:18 EDT Normal [facility] Junior Project Coordinator Progress Noteon 11-20-2018 Junior Project Coordinator Progress Note CM met with patient before huddles today. He is new to the floor from ER for chest pain. he is asking to go home since unable to do a stress test today. CM will update RN, educated patient on remaining in the hospital while labs are trending for MS. He does have insurance, independent with adl's, [...] Recieved a call back from Dr. quintana clerk secretary. Upon discussion, we reviewed patient listed as [...] his job established. Refuses to speak to patient financial representative when CM offered. Offered self pay education pamphlet as well, pt refuses stating he will get it figured out. CM put financial assistance program in chart for Discharge. Electronically signed by ___ Leidy Chapin 11/20/18 14:32 EDT Normal [facility] D-Dimeron 11-20-2018 Fibrin D-dimer FEU IA (Bld) [Mass/Vol] 0.34 mg/L feu Normal 0.00-0.49 [facility] Comment on above: Result Comment: Resu lts of the D-Dimer test should always be interpreted in conjunction with the patient's medical history, clinical presentation, and other findings. Results <0.5 mg/L are considered NEGATIVE for VTE. Results >= 0.5 mg/L require further clinical evaluation. Levels of triglyceride up to 600 mg/dl do not interfere with this D-Dimer assay. Performed By: #### D TRACY #### [address] [address] Diff Autoon 11-20-2018 Baso Absolute 0.1 x10*3/mcL Normal 0.0-0.2 [facility] Comment on above: Performed By: #### . Automated Diff #### [address] [address] Basophils/100 WBC (Bld) 0.8 % Normal 0.0-1.2 [facility] Comment on above: Performed By: #### . Automated Diff #### [address] [address] Eos Absolute 0.2 x10*3/mcL Normal 0.0-0.4 [facility] Comment on above: Performed By: #### . Automated Diff #### [address] [address] Eosinophils/100 WBC (Bld) 1.9 % Normal 0.0-6.1 [facility] Comment on above: Performed By: #### . Automated Diff #### [address] [address] Lymphocytes (Bld) [#/Vol] 3.5 x10*3/mcL Normal 1.0-4.8 [facility] Comment on above: Performed By: #### . Automated Diff #### [address] [address] Lymphocytes/100 WBC (Bld) 27.3 % Normal 27.2-40.8 [facility] Comment on above: Performed By: #### . Automated Diff #### [address] [address] Toombs Absolute 0.9 x10*3/mcL Normal 0.3-1.1 [facility] Comment on above: Performed By: #### . Automated Diff #### [address] [address] Monocytes/100 WBC (Bld) 6.9 % Normal 4.7-13.9 [facility] Comment on above: Performed By: #### . Automated Diff #### [address] [address] Neutro Absolute 8.1 x10*3/mcL High 1.8-7.7 [facility] Comment on above: Performed By: #### . Automated Diff #### [address] [address] Neutro Auto 63.1 % Normal 47.2-70.8 [facility] Comment on above: Performed By: #### . Automated Diff #### [address] [address] ED Clinical Summaryon 2018 ED Clinical Summary (Inserted Image. Ale ble to display) [address] [id number] ED Clinical Summary Person Information Name: Ahsan Nielsen [facility] Age: 53 Years : 1965 Sex: Male PCP: Marital Status: Single Phone: Race: White Ethnicity: Not or Language: Beninese Visit Reason: Dyspnea; Chest pain - Cardiac Acuity: 2 Enc Type: Observation Med Service: Emergency Medicine Arrival: 11/20/2018 07:05:00 Discharge: LOS: 000 01:54 Checkin: 11/20/2018 07:05:00 Checkout: 11/20/2018 08:59:41 Dispo Type: Admitted to ICU Address: [address] [place] [address] Provider Notes: History of Present Illness Patient [...] range between ( 27.2 and 40.8 ) Toombs Auto: 6.9 % -- Normal range between [...] range between ( 41.0 and 53.0 ) Toombs Absolute: 0.9 x10 MCH: 32.5 pg -- [...] Medications Care Team Members: Attending Physician: Gee Jones MD Consulting Physician: Referring Physician: Provider Role Assigned Unassigned Ramy Dooley DO ED Provider 11/20/2018 07:07:18 Follow up: Discharge Orders: Place in Observation 11/20/18 8:37:00 EDT, Coronary Care Unit, 11/20/18 8:37:00 EDT, Gee Jones MD, Karen MD, Gee Muniz Request for Admit 11/20/18 8:34:00 EDT, 11/20/18 8:34:00 EDT, Coronary Care Unit, Jen Bey DO Patient Education Information: [facility] Poison Help line: . [facility] Hotline: [place] [employer] Line: [place], [place]) [address]: [phone] [place], [place]) [address]: [phone] [facility] [address], [place]: [phone] [facility] ED Note-Nursingon 11-20-2018 ED Note-Nursing Spring Setter obtained admission room - CCU charge nurse requests 10 minutes before transport Electronically signed by ___ Rachel Sandra 11/20/18 08:47 EDT [facility] ED Note-Physicianon 11-21-19 ED Note-Physician Chief Complaint [...] information in this document, created by the program medical director for me, accurately reflects the services I [...] from someone other than the patient: Reviewed [facility] EMR to see if recent visits or hospitalizations. Review and summarized past medical records if pertinent and available in [employer]: Data Interpretation: I have have reviewed returned data from lab. Clinically important interpretation is: CBC is unremarkable Basic Metabolic panel with normal renal function, no significant abnormality Coags normal Initial cardiac enzymes negative d-d-tracy neg EKG: EKG time: 706 Rhythm:[normal sinus] Rate:88 [place]:[normal] QRS:81 QT interval:399 ST/T wave changes: No [...] 07:12 63.1 Lymph Auto 11/20/18 07:12 27.3 Toombs Auto 11/20/18 07:12 6.9 Eos Auto 11/20/18 07:12 1.9 Basophil Auto 11/20/18 07:12 0.8 Neutro Absolute 11/20/18 07:12 8.1 High Lymph Absolute 11/20/18 07:12 3.5 Toombs Absolute 11/20/18 07:12 0.9 Eos Absolute 11/20/18 [...] Electronically signed by ___ Ramy Dooley DO Shiva 11/20/2018 08:35 EDT Normal [facility] History and Physicalon 11-20 History and Physical [...] 95.3 (11/20/18) Mean Platelet Volume: 8.6 (11/20/18) Toombs Absolute: 0.9 (11/20/18) Toombs Auto: 6.9 (11/20/18) Neutro Absolute: 8.1 (11/20/18) Neutro Auto: 63.1 (11/20/18) PT: 9.7 (11/20/18) PTT: 24.2 (11/20/18) RBC: 4.86 (11/20/18) RDW: 13.0 (11/20/18) Assessment/Plan 1. Chest pain Rule out MS Stress test Cardiology consult 2. Dyspnea Repeat [...] data available. Electronically signed by ___ Gee Jones MD 11/20/18 10:06 EDT Normal [facility] Inpatient Clinical Summaryon 11-20-2018 Inpatient Clinical Summary [address] [address] [address] [address] Clinical Summary Person Information Name: Ahsan Nielsen Age: 53 Years : 1965 Sex: Male PCP: Marital Status: Single Phone: PCP: Race: White Ethnicity: Not or Language: Beninese Visit Id: Visit Reason: Dyspnea; Chest pain - Cardiac Speciality: Acuity: Enc Type: Observation Med Service: Emergency Medicine Arrival: 11/20/2018 07:05:00 Discharge: Dispo Type: Admitted to ICU Address: [address] [place], [place] [id number] Diagnosis: 1:Chest pain; 2:Dyspnea; 3:Palpitations; 4:Hypertension Discharged [...] range between ( 27.2 and 40.8 ) Toombs Auto: 6.9 % -- Normal range between [...] range between ( 41.0 and 53.0 ) Toombs Absolute: 0.9 x10 MCH: 32.5 pg -- [...] Medications Care Team Members: Attending Physician: Gee Jones MD Consulting Physician: Deion Monk MD Referring Physician: Follow up: With: Address: When: Guille Khan [address] [facility], [address] [place] [phone] Business (1) 11/27/2018 15:00:00 Comments: Appointment Scheduled Type Location Start Finish State New Patient Visit 30 Jourdan Redman 11/27/2018 15:00:00 11/27/2018 15:30:00 Confirmed Normal [facility] NM CARDIOLITE W/EXER STRESSo n 11-20-2018 NM CARDIOLITE W/EXER STRESS Myocardial Perfusion Imaging Report Arnie Protocol Height: 178 cm (70.1 in) Weight: 68 kg (149.6 lb) Ordering Physician: Gee Jones Referring Physician: Gee Jones Reading Physician: Deion Monk MD Indications: Chest [...] peak heart rate and blood pressure [place] [address] mm Hg/min. Stress ECG: The stress ECG [...] Electronically Signed in Other Vendor System) Normal [facility] PTon 11-20-2018 INR Coag (PPP) [Relative time] 0.9 {INR} Normal <=3.5 [facility] Comment on above: Result Comment: INR has no normal range. INR Therapeutic range is: 2.0-3.0 (AF, CVA, TIAs, DVT prophylaxis, acute DVT) 2.5-3.5 ([facility] heart valves, recurrent thrombosis/emboli) Performed By: #### P TINR #### [place] [address] PT Coag (PPP) [Time] 9.7 s Normal 9.2-11.7 [facility] Comment on above: Performed By: #### P TINR #### [address] [address] PTTon 11-20-2018 aPTT Coag (Bld) [Time] 24.2 s Normal 20.6-27.7 [facility] Comment on above: Performed By: #### P TT #### [address] [address] XR Chest 1 Viewon 11-20-2018 XR Chest [...] Signed, Electronically Signed in Other Vendor System) [facility] XR Chest 2 Viewson 9 XR Chest [...] Signed, Electronically Signed in Other Vendor System) [facility] Cult,Urineon 10-25-2017 Cult,Urine Specimen Description .CLEAN CATCH URINE Performed at [address] [place] [address] ([phone] Special Requests NOT REPORTEDCulture NO GROWTH Performed at [address] [id number] ([phone] Report Status FINAL 10/25/2017 [facility] Comment on above: Performed By: #### U RC ####[address] [phone] [place] [address] CBC with Diffon 10-24-2017 Abs. Basophil 0.05 k/uL Normal 0.00-0.20 [facility] Comment on above: Performed By: #### C SANDRA CP, LIP ####[address] [place] [address] Abs.Neutrophil (Seg) 5.37 k/uL Normal 1.50-8.10 [facility] Comment on above: Performed By: #### C SANDRA CP, LIP ####[address] , [facility]83 Basophils/100 WBC Auto (Bld) 1 % Normal 0-2 [facility] Comment on above: Performed By: #### C SANDRA CP, LIP ####[address] [place] [address] Eosinophils 0.57 10*3/uL High 0.00-0.44 [facility] Comment on above: Performed By: #### C SANDRA CP, LIP ####[address] [place] [address] Eosinophils/100 leukocytes 7 % High 1-4 [facility] Comment on above: Performed By: #### C TAMARA FLORES, LIP ####[address] [place] [address] Erythrocyte distribution width Auto Ratio (RBC) 13.4 % Normal 11.8-14.4 [facility] Comment on above: Performed By: #### C SANDRA CP, LIP ####[address] [place] [address] Erythrocytes (RBC) 0.0 per 100 WBC Normal 0.0 [facility] Comment on above: Performed By: #### C SANDRA CP, LIP ####[address] [place] [address] Erythrocytes (RBC) 5.69 10*6/uL Normal 4.21-5.77 [facility] Comment on above: Performed By: #### C SANDRA CP, LIP ####[address] [place] [address] Granulocytes/100 WBC (Bld) 0.04 k/uL Normal 0.00-0.30 [facility] Comment on above: Result Comment: Perf ormed at [address] [place] [address] Performed By: #### C DP, CP, LIP ####[address] [place] [address] Hematocrit (HCT) 51.0 % High 40.7-50.3 [facility] Comment on above: Performed By: #### C DP, CP, LIP ####[address] [place] [address] Hemoglobin mass conc (Bld) 18.0 g/dL High 13.0-17.0 [facility] Comment on above: Performed By: #### C DP, CP, LIP ####[address] [place] [address] Immature granulocytes #/vol (Bld) 1 % High 0 [facility] Comment on above: Performed By: #### C DP, CP, LIP ####[address] [place] [address] Lymphocytes 1.35 10*3/uL Normal 1.10-3.70 [facility] Comment on above: Performed By: #### C DP, CP, LIP ####[address] [place] [address] Lymphocytes/100 leukocytes 15 % Low 24-43 [facility] Comment on above: Performed By: #### C DP, CP, LIP ####[address] [place] [address] MCH 31.6 pg Normal 25.2-33.5 [facility] Comment on above: Performed By: #### C DP, CP, LIP ####[address] [place] [address] MCHC mass conc (RBC) 35.3 g/dL High 28.4-34.8 [facility] Comment on above: Performed By: #### C DP, CP, LIP ####[address] [place] [address] MCV 89.6 fL Normal 82.6-102.9 [facility] Comment on above: Performed By: #### C DP, CP, LIP ####[address] [place] [address] Monocytes 1.36 10*3/uL High 0.10-1.20 [facility] Comment on above: Performed By: #### C DP, CP, LIP ####[address] [place] [address] Monocytes/100 leukocytes 16 % High 3-12 [facility] Comment on above: Performed By: #### C DP, CP, LIP ####[address] [place] [address] Neutrophil (Seg) 61 % Normal 36-65 [facility] Comment on above: Performed By: #### C DP, CP, LIP ####[address] [place] [address] Platelet mean volume (PMV) 10.5 fL Normal 8.1-13.5 [facility] Comment on above: Performed By: #### C DP, CP, LIP ####[address] [place] [address] Platelets 186 10*3/uL Normal 138-453 [facility] Comment on above: Performed By: #### C DP, CP, LIP ####[address] [place] [address] WBC (Leukocytes) 8.7 10*3/uL Normal 3.5-11.3 [facility] Comment on above: Performed By: #### C DP, CP, LIP ####[address] [place] [address] Auto Diff Performed NOT REPORTED Normal [facility] Comment on above: Performed By: #### C DP, CP, LIP ####[address] [place] [address] Erythrocyte morphology NOT REPORTED Normal [facility] Comment on above: Performed By: #### C DP, CP, LIP ####[address] [place] [address] Platelets NOT REPORTED Normal [facility] Comment on above: Performed By: #### C DP, CP, LIP ####[address] [place] [address] WBC Morphology NOT REPORTED Normal [facility] Comment on above: Performed By: #### C DP, CP, LIP ####[address] [place] [address] Comp Metabolic Profon 2017 (cont.) Normal [facility] Comment on above: Result Comment: Aver age GFR for 50-59 years old: 93 mL/min/1.73sq mChronic Kidney Disease: <60 mL/min/1.73sq mKidney failure: <15 mL/min/1.73sq meGFR calculated using average adult body mass. Additional eGFR calculator available at:http://www.InvenQuery.Computerlogy/multiple_crcl_2012.htm Performed By: #### C DP, CP, LIP ####[address] [place] [address] Alanine aminotransferase (ALT) 18 U/L Normal 5-41 [facility] Comment on above: Performed By: #### C DP, CP, LIP ####[address] [place] [address] Albumin 4.2 g/dL Normal 3.5-5.2 [facility] Comment on above: Performed By: #### C DP, CP, LIP ####[address] [place] [address] Albumin/Globulin Ratio 1.2 {ratio} Normal 1.0-2.5 [facility] Comment on above: Performed By: #### C DP, CP, LIP ####[address] [place] [address] Alkaline Phos 74 U/L Normal 40-129 [facility] Comment on above: Performed By: #### C DP, CP, LIP ####[address] [place] [address] Anion gap 16 mmol/L Normal 9-17 [facility] Comment on above: Performed By: #### C DP, CP, LIP ####[address] [place] [address] Aspartate aminotransferase (AST) 24 U/L Normal <40 [facility] Comment on above: Performed By: #### C DP, CP, LIP ####[address] [place] [address] Bilirubin Ql (U) 0.64 mg/dL Normal 0.3-1.2 [facility] Comment on above: Performed By: #### C DP, CP, LIP ####[address] [place] [address] BUN/CRE Ratio 15 Normal 9-20 [facility] Comment on above: Performed By: #### C DP, CP, LIP ####[address] [place] [address] Calcium 9.2 mg/dL Normal 8.6-10.4 [facility] Comment on above: Performed By: #### C DP, CP, LIP ####[address] [place] [address] Chloride 91 mmol/L Low 98-107 [facility] Comment on above: Performed By: #### C DP, CP, LIP ####[address] [place] [address] CO2 23 mmol/L Normal 20-31 [facility] Comment on above: Performed By: #### C DP, CP, LIP ####[address] [place] [address] Creatinine 0.94 mg/dL Normal 0.70-1.20 [facility] Comment on above: Performed By: #### C DP, CP, LIP ####[address] [place] [address] eGFR (non-black) mL/min/{1.73_m2} Normal >60 [facility] Comment on above: Performed By: #### C DP, CP, LIP ####[address] , [facility]83 Glucose mass conc 113 mg/dL High 70-99 [facility] Comment on above: Performed By: #### C DP, CP, LIP ####[address] , [facility]83 Potassium molar conc 4.8 mmol/L Normal 3.7-5.3 [facility] Comment on above: Performed By: #### C DP, CP, LIP ####[address] , [facility]83 Protein 7.6 g/dL Normal 6.4-8.3 [facility] Comment on above: Performed By: #### C DP, CP, LIP ####[address] [place] [address] Sodium 130 mmol/L Low 135-144 [facility] Comment on above: Performed By: #### C DP, CP, LIP ####[address] , [facility]83 Staging: Normal [facility] Comment on above: Result Comment: Stag e 1: Some kidney damage normal GFRStage 2: Mild kidney damage GFR 60-89Stage 3: Moderate kidney damage GFR 30-59Stage 4: Severe kidney damage GFR 15-29Stage 5: Severe kidney damage GFR <15ESRD - chronic treatment by dialysis or transplantPerformed at [address] [place] [address] Performed By: #### C DP, CP, LIP ####[address] [place] [address] Urea nitrogen 14 mg/dL Normal 6-20 [facility] Comment on above: Performed By: #### C DP, CP, LIP ####[address] [place] [address] Lipaseon 10-24-2017 Lipase 27 U/L Normal 13-60 [facility] Comment on above: Result Comment: Perf ormed at [address] [place] [address] Performed By: #### C DP, CP, LIP ####[address] [place] [address] Urinalysis w/ Microon 2017 ----- Normal [facility] Comment on above: Performed By: #### U AMIC ####[address] [place] [address] Acetaminophen mass conc 1+ Abnormal NEG [facility] Comment on above: Performed By: #### U AMIC ####[address] [place] [address] Bilirubin (direct) Negative Normal NEG [facility] Comment on above: Performed By: #### U AMIC ####[address] [place] [address] Hemoglobin mass conc (Bld) Negative Normal NEG [facility] Comment on above: Performed By: #### U AMIC ####[address] [place] [address] Nitrite,Ur Negative Normal NEG [facility] Comment on above: Performed By: #### U AMIC ####[address] [place] [address] Turbidity CLEAR Normal CLEAR [facility] Comment on above: Performed By: #### U AMIC ####[address] [place] [address] Urine WBC's 0 TO 2 Normal 0-5 [facility] Comment on above: Performed By: #### U AMIC ####[address] [place] [address] Urine, color YELLOW Normal YEL [facility] Comment on above: Performed By: #### U AMIC ####[address] [place] [address] Urine, epithelial cells in sediment 0 TO 2 Normal 0-5 [facility] Comment on above: Result Comment: Perf ormed at [facility] [address] [place] [address] Performed By: #### U AMIC ####[address] [place] [address] Urine, erythrocytes 0 TO 2 Normal 0-2 [facility] Comment on above: Performed By: #### U AMIC ####[address] [place] [address] Urine, glucose presence Negative Normal NEG [facility] Comment on above: Performed By: #### U AMIC ####[address] [place] [address] Urine, leukocyte esterase presence Negative Normal NEG [facility] Comment on above: Performed By: #### U AMIC ####[address] [place] [address] Urine, pH 6.5 [pH] Normal 5.0-9.0 [facility] Comment on above: Performed By: #### U AMIC ####[address] [place] [address] Urine, protein presence Negative Normal NEG [facility] Comment on above: Performed By: #### U AMIC ####[address] [place] [address] Urine, specific gravity <1.005 Low 1.010-1.020 [facility] Comment on above: Performed By: #### U AMIC ####[address] [place] [address] Urobilinogen,Ur Normal Normal NORM [facility] Comment on above: Performed By: #### U AMIC ####[address] [place] [address] Comment NOT REPORTED Normal [facility] Comment on above: Performed By: #### U AMIC ####[address] [place] [address] Epithelial, Renal NOT REPORTED Normal 0 [facility] Comment on above: Performed By: #### U AMIC ####[address] [place] [address] Mucus Strands NOT REPORTED Normal NONE [facility] Comment on above: Performed By: #### U AMIC ####[address] [place] [address] Other Observations NOT REPORTED Normal NREQ [facility] Comment on above: Performed By: #### U AMIC ####[address] [place] [address] Trichomonas NOT REPORTED Normal NONE [facility] Comment on above: Performed By: #### U AMIC ####[address] [place] [address] Urine, amorphous sediment presence in sediment NOT REPORTED Normal NONE [facility] Comment on above: Performed By: #### U AMIC ####[address] [place] [address] Urine, bacteria in sediment NOT REPORTED Normal NONE [facility] Comment on above: Performed By: #### U AMIC ####[address] [place] [address] Urine, casts in sediment NOT REPORTED Normal [facility] Comment on above: Performed By: #### U AMIC ####[address] [place] [address] Urine, crystals in sediment NOT REPORTED Normal NONE 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 Encounters Encounter Date Encounter Type Care Provider Facility Start: 12-10-2023 End: 12-10-2023 ambulatory [facility] Start: 11-20-2018 End: 11-20-2018 Patient encounter procedure GEE JONES Facility:[facility] Start: 10-24-2017 End: 10-24-2017 Emergency department patient visit ANABEL Abdullahi [facility] Start: 12-27-2016 End: 12-28-2016 Ambulatory A[facility]BEL Abdullah[facility] Procedures Date Procedure Procedure Detail Performing Clinician Start: 10-24-2017 NURSING COMMUNICATION Cathy LONG Start: 10-24-2017 URINALYSIS WITH MICROSCOPIC ANABEL LONG Start: 10-24-2017 URINE CULTURE ANABEL LACY Start: 10-24-2017 CBC WITH AUTO DIFFERENTIAL ANABEL LONG Start: 10-24-2017 COMPREHENSIVE METABOLIC PANEL ANABEL LONG Start: 10-24-2017 LIPASE ANABEL DELGADILLO Start: 10-24-[address] [facility] LONG Payers Date Payer Category Payer Self-pay 2016 Unknown [id number] 2015 Unknown [id number] 1965 Unknown [id number] Progress note 12-10-2023 Note Date & Type Note Facility 12-10-2023 Note [facility] Note Reason for cardiology consult: New patient here to establish care. Ref from Dr. Emerald Jean for syncope. Chief Complaint: Syncope and dyspnea on exertion HPI: hAsan Nielsen is a 58 y.o. male without prior cardiac history. Hypertension was diagnosed recently and he was started on lisinopril. He denies history of hyperlipidemia or diabetes mellitus. He is a longtime smoker. He [facility] last month for syncope. He says this has happened about 3 times the past year. All of them occurred in standing position, he does not recall any preceding symptoms such as feeling lightheaded or palpitation, in the last 1 the was at home and she heard a thud in the next room and when she went there he was getting up and he told her that he could not catch his breath. In general he feels lightheaded if he gets up quickly therefore he usually does that slowly. He does feel intermittent palpitations, which lasts for few seconds and not associated with other symptoms. 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 He denies any chest discomfort at rest or with exertion. He admits exertional dyspnea particularly lately. He denies orthopnea or paroxysmal nocturnal dyspnea. He denies legs edema or legs discomfort on exertion. states that he snores and his breathing becomes very shallow at times. He has been complaining of being tired lately. He had COVID infection about 2 years ago but it was mild. He drinks at least 20 ounce of coffee a day in addition to 1-2 bottles of iced tea. He also drinks alcohol 1-2 beers 4-5 times a week. He drinks some water. He smokes 1 pack/day for at least for 16 years. He denies any drugs. The told me that his PCP did recently do some labs and he was told that he was positive for hepatitis B. He denies family history of coronary artery disease Cardiology ROS: Review of Systems Cardiovascular: Positive for irregular heartbeat, orthopnea, palpitations and syncope. Respiratory: Positive for cough, snoring and wheezing. Musculoskeletal: Positive for arthritis, back pain, joint pain, myalgias and neck pain. All other systems reviewed and are negative. Past Medical History He has a past medical history of Hypertension and Syncope. Surgical History He has a past surgical history that includes Knee surgery and Hip surgery. Social History He reports that he has been smoking cigarettes. He has a 16.00 pack-year smoking history. He has never used smokeless tobacco. He reports current alcohol use of about 8.0 standard drinks of alcohol per week. He reports that he does not use drugs. Family History Family History Problem Relation Name Age of Onset Cancer Mother COPD Father Allergies Patient has no known allergies. Medications Current Outpatient Medications: lisinopril 10 mg tablet, TAKE 1 TABLET BY MOUTH ONCE DAILY FOR 30 DAYS, Disp: , Rfl: blood pressure test kit-large kit, 1 kit once daily as directed., Disp: 1 kit, Rfl: 0 metoprolol succinate XL (Toprol-XL) 50 mg 24 hr tablet, Take 1 tablet (50 mg) by mouth once daily as directed. Do not crush or chew., Disp: 90 tablet, Rfl: 3 Last Recorded Vitals Visit Vitals BP 152/88 (BP Location: Left arm, Patient Position: Standing) Pulse 78 Ht 1.778 m (5' 10 ) Wt 81.2 kg (179 lb) SpO2 95% BMI 25.68 kg/m??? Smoking Status Every Day BSA 2 m??? Physical Examination: GENERAL: alert and oriented x3, well developed, in no acute distress. HEAD: atraumatic, normocephalic. EYES: JILLIAN, EOMI. NECK: trachea midline, no JVD present, no carotid bruits present. CARDIAC: S1, S2 present. RRR. No murmur, rubs, or gallops. RESPIRATORY: CTAB, no increased effort of breathing, no rales, rhonchi, or wheezing. ABDOMEN: soft, nontender, nondistended. EXTREMITIES: no lower extremity edema, peripheral pulses are 2+ bilaterally. No rash/skin discoloration present. NEURO: strength/sensation equal and symmetric in bilateral upper and lower extremities. PSYCH: appropriate mood, affect, and judgement. Labs: Labs 12/04/2023 AST 56, ALT 83, alk phos 118, total protein 8.4 Labs from 11/22/2023 White blood count 5.2, hemoglobin 16.3, hematocrit is 47.3, platelets 229 Sodium 137, potassium 5.1, BUN 7, creatinine 0.74, GFR above 60, glucose 106, calcium 9.1 Total bilirubin 0.5, AST 61, ALT 98, alk phos 99, total protein 8.5 proBNP 95-normal less than 900 Last Images: EKG 11/22/2023 showed normal sinus rhythm, heart rate 67 bpm, normal EKG EKG 06/25/2016 Normal sinus rhythm Normal ECG Chest x-ray 11/22/2023 1. No acute cardiopulmonary abnormality. Assessment and Plan: Syncope, clinically appears to represent orthostatic hypotension probably due to dehydration given that the patient works in construction and the patient drinks a lot of caffeine and alcohol without much water. But we should rule out other etiologies such as bradycardia or tachyarrhythmias. Dys (more content not included)... [facility] Summary Purpose Family History No Family History Records FoundNo Family History Records FoundNo Family History Records Found Advance Directives No Advanced Directives Records FoundNo Advanced Directives Records FoundNo Advanced Directives Records [...] [1] Hospital Course He ruled out for MS. Chest x-ray was normal. Stress test was [...] content) No Status Records FoundNo Status Records FoundNo Status Records Found INFORMATION SOURCE (unrecogn ized section and content) DATE CREATED AUTHOR 12/25/2017 Liz Champagne [facility] DATE CREATED AUTHOR AUTHOR'S ORGANIZ ATION 04/15/2019 [facility] DATE CREATED AUTHOR AUTHOR'S ORGANIZ ATION 12/12/2023 [facility] FOR RECORDS PERTAINING TO PATIENTS WHO ARE [...] BE BASED ON THE PRIMARY CLINICAL RECORDS. [facility] [employer] [facility] provides no warranty or guarantee of the accuracy or completeness of information in this document.
[2023-12-12 09:04] LABS: Chol HDL Ratio 3.9; Cholesterol 181 mg/dL (<=200); HDL Cholesterol 46 mg/dL (40-60); LDL Cholesterol Calculated 113.8 mg/dL; Thyroid Stimulating Hormone 2.551 uIU/mL (0.358-3.740); Triglycerides 106 mg/dL (<=150); VLDL CHOLESTEROL 21.2 mg/dL
== END 2023-12-12 07:11 | disposition home or self-care (01) ==
LOC: LAB 07:10
PROVIDERS: PCP Nurse Practitioner; Visit Provider Internal Medicine Cardiovascular Disease
DX: R55 Syncope and collapse (principal); I10 Essential (primary) hypertension
CPT/HCPCS: 36415; 80061; 82533; 84443

== ENCOUNTER 2024-01-06 08:56 | Outpatient (OUT) | payer OTHER, SELFPAY ==
--- OUTSIDE RECORDS SUMMARY | 2024-01-06 09:01 | XMS_ITS | CCD ---
Author Organization [place] [employer] [facility] Care Team Providers Care Machinery Rigger Name Role Phone ANABEL LONG Unavailable Unavailable ANABEL LONG Unavailable Unavailable ANABEL LONG Unavailable Unavailable ANABEL LONG Unavailable Unavailable TAMMY CONTRERAS Unavailable Unavailable KARENGEE Admitting Unavailable KARENGEE Segura Attending Unavailable DEION MONK Consulting Unavailerendira ble BV, Physician - Emergency Consulting Kajal Wood Consulting Unavailable ELISABETH PEREZ Attending Unavailable Allergies Allergy Classification Reported Allergen(s) Allergy Type Date of Onset Reaction(s) Facility (1 source) No Known Medication Allergies; Translations: [No Known Medication Allergies] Propensity to adverse reactions to drug (disorder) [facility] Repository Problems Problem Classification Problem Date Documented [...] Test Name Value Interpretation Reference Range Facility 36on 12-16-2023 36 Regarding lab result s from 12/12/2023: MD Michelle Shetty MA Notify patient that his lipids shows mildly elevated LDL cholesterol, follow low-fat diet. His TSH and a.m. cortisol level are normal Spoke with patient's and made her aware. Normal [facility] Orders Onlyon 12-11-2023 Orders Only [id number] Javier Nielsen A 1965 M Date Provider Department Center 12/11/2023 KAITLIN ROY Family History Problem Relation Age of Onset Cancer Mother COPD Father Family Status - Relation Status Age at Mother Father Normal [facility] Office Visiton 12-10-2023 Follow-up visit [id number] Javier Nielsen A 1965 M Date Provider Department Center 12/10/2023 ELISABETH BOOTH Family History Problem Relation Age of Onset Cancer Mother COPD Father Family Status - Relation Status Age at Mother Father Level of Service:02335 [place] OFFICE/OUTPATIENT NEW MODERATE MDM 45 MINUTES Normal [facility] Family Medicine Office/Clini c Noteon 11-27-2018 Family [...] Guille Khan PA-C 11/27/18 15:46 EDT Normal [facility] .eGFRon 11-20-2018 eGFR AA >60 Normal >=60 [facility] Comment on above: Result Comment: Resu lt = 0-14.9 mL/min/1.73 m2 Kidney failure or Dialysis Result = 15-29 mL/min/1.73 m2 Severe decrease in GFR Result = 30-59 mL/min/1.73 m2 Moderate decrease in GFR Result >= 60 mL/min/1.73 m2 Normal or increased GFR Performed By: #### E GFR #### [place] [id number] eGFR Non-AA >60 Normal >=60 [facility] Comment on above: Result Comment: Resu lt [...] dosing. Performed By: #### E GFR #### [address] [address] AMI 2Hron 11-20-2018 2 Hour Myoglobin 22.0 ng/mL Normal 17.4-105.7 [facility] Comment on above: Performed By: #### C BC #### [address] [address] Troponin I.cardiac [Mass/Vol] ng/mL Normal 0.00-0.03 [facility] Comment on above: Result Comment: An i ncreased Troponin-I value, in the absence of myocardial ischemia, may indicate other etiologies of cardiac damage. Performed By: #### C BC #### [address] [address] AMI Initon 11-20-2018 Initial Myoglobin 29.0 ng/mL Normal 17.4-105.7 [facility] Comment on above: Performed By: #### A MI1 #### [address] [address] Troponin I.cardiac [Mass/Vol] ng/mL Normal 0.00-0.03 [facility] Comment on above: Result Comment: An i ncreased Troponin-I value, in the absence of myocardial ischemia, may indicate other etiologies of cardiac damage. Performed By: #### A MI1 #### [address] [address] GYR5Sjde 11-20-2018 6 Hour Myoglobin 27.0 ng/mL Normal 17.4-105.7 [facility] Comment on above: Performed By: #### C BC #### [address] [address] Troponin I.cardiac [Mass/Vol] ng/mL Normal 0.00-0.03 [facility] Comment on above: Result Comment: An i ncreased Troponin-I value, in the absence of myocardial ischemia, may indicate other etiologies of cardiac damage. Performed By: #### C BC #### [address] [address] Basic Metabolic Profileon Anion gap [Moles/Vol] 14 mmol/L Normal 7-17 [facility] Comment on above: Performed By: #### C [id number] #### [address] [address] Calcium [Mass/Vol] 8.7 mg/dL Normal 8.5-10.3 [facility] Comment on above: Performed By: #### C [id number] #### [address] [address] Chloride [Moles/Vol] 105 mmol/L Normal 98-110 [facility] Comment on above: Performed By: #### C [id number] #### [address] [address] CO2 [Moles/Vol] 22 mmol/L Normal 22-32 [facility] Comment on above: Performed By: #### C [id number] #### [address] [address] Creatinine [Mass/Vol] 0.70 mg/dL Normal 0.61-1.24 [facility] Comment on above: Performed By: #### C [id number] #### [address] [address] Glucose [Mass/Vol] 100 mg/dL Normal 74-118 [facility] Comment on above: Performed By: #### C [id number] #### [address] [address] Potassium [Moles/Vol] 4.4 mmol/L Normal 3.4-4.8 [facility] Comment on above: Performed By: #### C [id number] #### [address] [address] Sodium [Moles/Vol] 137 mmol/L Normal 133-142 [facility] Comment on above: Performed By: #### C [id number] #### [address] [address] Urea nitrogen [Mass/Vol] 13 mg/dL Normal 8-26 [facility] Comment on above: Performed By: #### C [id number] #### [address] [address] Urea nitrogen/Creatinine [Mass ratio] 18.6 mg/mg Normal 10.0-20.0 [facility] Comment on above: Performed By: #### C [id number] #### [address] [address] CBC w/ Diffon 11-20-2018 Erythrocyte distribution width (RBC) [Ratio] 13.0 % Normal 11.6-14.8 [facility] Comment on above: Performed By: #### C BC #### [address] [address] Hematocrit (Bld) [Volume fraction] 46.3 % Normal 41.0-53.0 [facility] Comment on above: Performed By: #### C BC #### [address] [address] Hemoglobin (Bld) [Mass/Vol] 15.8 g/dL Normal 13.5-17.5 [facility] Comment on above: Performed By: #### C BC #### [address] [address] MCH (RBC) [Entitic mass] 32.5 pg Normal 27.0-35.0 [facility] Comment on above: Performed By: #### C BC #### [address] [address] MCHC (RBC) [Mass/Vol] 34.1 % Normal 31.0-37.0 [facility] Comment on above: Performed By: #### C BC #### [address] [address] MCV (RBC) [Entitic vol] 95.3 fL Normal 80.0-100.0 [facility] Comment on above: Performed By: #### C BC #### [address] [address] Platelet mean volume (Bld) [Entitic vol] 8.6 fL Normal 6.7-10.6 [facility] Comment on above: Performed By: #### C BC #### [address] [address] Platelets (Bld) [#/Vol] 202 x10*3/mcL Normal 150-350 [facility] Comment on above: Performed By: #### C BC #### [address] [address] RBC (Bld) [#/Vol] 4.86 x10*6/mcL Normal 4.30-5.80 [facility] Comment on above: Performed By: #### C BC #### [address] [address] WBC (Bld) [#/Vol] 12.8 x10*3/mcL High 4.5-11.0 [facility] Comment on above: Performed By: #### C #### [facility] [address] [place] [address] Cardiology Consultationon Cardiology Consultation Chief Complaint dyspnea [...] BEDOLLA, Deion Flynn 11/20/18 16:18 EDT Normal [facility] Sociology Professor Progress Noteon 11-20-2018 Sociology Professor Progress Note ROSA met with patient before huddles today. He is new to the floor from ER for chest pain. he is asking to go home since unable to do a stress test today. ROSA will update RN, educated patient on remaining in the hospital while labs are trending for [place]. He does have insurance, independent with adl's, still drives, no assistive devices used, has supportive SO. He voices he doesn't go to doctors, he doesn't need too. CM educated patient on this & he agrees to let CM set him up with a new PCP to establish care. Request Dr. Quintana, since this is who is SO sees. ROSA will work on this today. He does [...] Recieved a call back from Dr. quintana clinical secretary. Upon discussion, we reviewed patient listed as a self-pay, however, patient informed CM earlier he has insurance, so will need to verify & call back, but Dr. Quintana will accept if insurance accepted. Electronically signed by ___ Liedy Chapin 11/20/18 14:21 EDT CM knocked & [...] job established. Refuses to speak to financial aid director when CM offered. Offered self pay education pamphlet as well, pt refuses stating he will get it figured out. CM put financial assistance program in chart for Discharge. Electronically signed by ___ Leidy Chapin 11/20/18 14:32 EDT Normal [facility] D-Dimeron 11-20-2018 Fibrin D-dimer FEU IA (Bld) [Mass/Vol] 0.34 mg/L feu Normal 0.00-0.49 [facility] Comment on above: Result Comment: Resu lts of the D-Dimer test should always be interpreted in conjunction with the patient's medical history, clinical presentation, and other findings. Results <0.5 mg/L are considered NEGATIVE for VTE. Results >= 0.5 mg/L require further clinical evaluation. Levels of triglyceride up to 600 mg/dl do not interfere with this D-Dimer assay. Performed By: #### D TRACY #### [address] [address] Diff Autoon 11-20-2018 Baso Absolute 0.1 x10*3/mcL Normal 0.0-0.2 [facility] Comment on above: Performed By: #### . Automated Diff #### [address] [address] Basophils/100 WBC (Bld) 0.8 % Normal 0.0-1.2 [facility] Comment on above: Performed By: #### . Automated Diff #### [address] [address] Eos Absolute 0.2 x10*3/mcL Normal 0.0-0.4 [facility] Comment on above: Performed By: #### . Automated Diff #### [address] [address] Eosinophils/100 WBC (Bld) 1.9 % Normal 0.0-6.1 [facility] Comment on above: Performed By: #### . Automated Diff #### [address] [address] Lymphocytes (Bld) [#/Vol] 3.5 x10*3/mcL Normal 1.0-4.8 [facility] Comment on above: Performed By: #### . Automated Diff #### [address] [address] Lymphocytes/100 WBC (Bld) 27.3 % Normal 27.2-40.8 [facility] Comment on above: Performed By: #### . Automated Diff #### [place] [id number] Rincon Absolute 0.9 x10*3/mcL Normal 0.3-1.1 [facility] Comment on above: Performed By: #### . Automated Diff #### [place] [id number] Monocytes/100 WBC (Bld) 6.9 % Normal 4.7-13.9 [facility] Comment on above: Performed By: #### . Automated Diff #### [place] [id number] Neutro Absolute 8.1 x10*3/mcL High 1.8-7.7 [facility] Comment on above: Performed By: #### . Automated Diff #### [place] [address] Neutro Auto 63.1 % Normal 47.2-70.8 [facility] Comment on above: Performed By: #### . Automated Diff #### [place] [id number] ED Clinical Summaryon 2018 ED Clinical Summary (Inserted Image. Ale ble to display) [place] [address] ED Clinical Summary Person Information Name: Ahsan Nielsen [facility] Age: 53 Years : 1965 Sex: Male PCP: Marital Status: Single Phone: Race: White Ethnicity: Not or Language: Upper Sorbian Visit Reason: Dyspnea; Chest pain - Cardiac Acuity: 2 Enc Type: Observation Med Service: Emergency Medicine Arrival: 11/20/2018 07:05:00 Discharge: LOS: 000 01:54 Checkin: 11/20/2018 07:05:00 Checkout: 11/20/2018 08:59:41 Dispo Type: Admitted to ICU Address: [address] [place], [place] [id number] Provider Notes: History of Present Illness Patient [...] range between ( 27.2 and 40.8 ) Rincon Auto: 6.9 % -- Normal range between [...] range between ( 41.0 and 53.0 ) Rincon Absolute: 0.9 x10 MCH: 32.5 pg -- [...] Team Members: Attending Physician: Karen BEDOLLA, Gee Muniz Consulting Physician: Referring Physician: Provider Role Assigned Unassigned Ramy Dooley DO ED Provider 11/20/2018 07:07:18 Follow up: Discharge Orders: Place in Observation 11/20/18 8:37:00 EDT, Coronary Care Unit, 11/20/18 8:37:00 EDT, Karen BEDOLLA, Karen Sawyer MD, Gee Muniz Request for Admit 11/20/18 8:34:00 EDT, 11/20/18 8:34:00 EDT, Coronary Care Unit, Jen Bey DO Patient Education Information: [facility] Poison Help line: . [facility] Hotline: [place] [employer]: [place], [place]) [address]: [phone] [place], [place]) [address]: [phone] [facility] [address], [place]: [phone] Normal [facility] ED Note-Nursingon 11-20-2018 ED Note-Nursing [place] Farmer obtained admission room - CCU charge nurse requests 10 minutes before transport Electronically signed by ___ Rachel Sandra 11/20/18 08:47 EDT Normal [facility] ED Note-Physicianon 11-21-19 19 ED Note-Physician Chief Complaint Chest pain, shortness [...] in this document, created by the medical technical writer for me, accurately reflects the services I [...] from someone other than the patient: Reviewed [facility] EMR to see if recent visits or hospitalizations. Review and summarized past medical records if pertinent and available in [employer]: Data Interpretation: I have have reviewed returned data from lab. Clinically important interpretation is: CBC is unremarkable Basic Metabolic panel with normal renal function, no significant abnormality Coags normal Initial cardiac enzymes negative d-d-tracy neg EKG: EKG time: 706 Rhythm:[normal sinus] Rate:88 [place]:[normal] QRS:81 QT interval:399 ST/T wave changes: No [...] normal. ED Course / Patient Re-evaluation: Time: 81 I have reassessed the patient at bedside. [...] 07:12 63.1 Lymph Auto 11/20/18 07:12 27.3 Rincon Auto 11/20/18 07:12 6.9 Eos Auto 11/20/18 07:12 1.9 Basophil Auto 11/20/18 07:12 0.8 Neutro Absolute 11/20/18 07:12 8.1 High Lymph Absolute 11/20/18 07:12 3.5 Rincon Absolute 11/20/18 07:12 0.9 Eos Absolute 11/20/18 [...] Ramy Dooley DO 11/20/2018 08:35 EDT Normal [facility] History and Physicalon 11-20 History and Physical [...] 95.3 (11/20/18) Mean Platelet Volume: 8.6 (11/20/18) Rincon Absolute: 0.9 (11/20/18) Rincon Auto: 6.9 (11/20/18) Neutro Absolute: 8.1 (11/20/18) Neutro Auto: 63.1 (11/20/18) PT: 9.7 (11/20/18) PTT: 24.2 (11/20/18) RBC: 4.86 (11/20/18) RDW: 13.0 (11/20/18) Assessment/Plan 1. Chest pain Rule out [place] Stress test Cardiology consult 2. Dyspnea Repeat [...] Gee Jones MD 11/20/18 10:06 EDT Normal [facility] Inpatient Clinical Summaryon 11-20-2018 Inpatient Clinical Summary [address] [address] [address] Clinical Summary Person Information Name: Ahsan Nielsen Age: 53 Years : 1965 Sex: Male PCP: Marital Status: Single Phone: PCP: Race: White Ethnicity: Not or Language: Upper Sorbian Visit Id: Visit Reason: Dyspnea; Chest pain - Cardiac Speciality: Acuity: Enc Type: Observation Med Service: Emergency Medicine Arrival: 11/20/2018 07:05:00 Discharge: Dispo Type: Admitted to ICU Address: [address] [place] [address] Diagnosis: 1:Chest pain; 2:Dyspnea; 3:Palpitations; 4:Hypertension Discharged [...] range between ( 27.2 and 40.8 ) Rincon Auto: 6.9 % -- Normal range between [...] range between ( 41.0 and 53.0 ) Rincon Absolute: 0.9 x10 MCH: 32.5 pg -- [...] up: With: Address: When: Guille Khan [address] [facility], [address] [place] [phone] Business (1) 11/27/2018 15:00:00 Comments: Appointment Scheduled Type Location Start [facility] New Patient Visit 30 Jourdan Redman 11/27/2018 15:00:00 11/27/2018 15:30:00 Confirmed Normal [facility] NM CARDIOLITE W/EXER STRESSo n 11-20-2018 NM [...] peak heart rate and blood pressure was [address] mm Hg/min. Stress ECG: The stress ECG [...] Electronically Signed in Other Vendor System) Normal [facility] PTon 11-20-2018 INR Coag (PPP) [Relative time] 0.9 {INR} Normal <=3.5 [facility] Comment on above: Result Comment: INR has no normal range. INR Therapeutic range is: 2.0-3.0 (AF, CVA, TIAs, DVT prophylaxis, acute DVT) 2.5-3.5 ([facility] heart valves, recurrent thrombosis/emboli) Performed By: #### P TINR #### [address] [address] PT Coag (PPP) [Time] 9.7 s Normal 9.2-11.7 [facility] Comment on above: Performed By: #### P TINR #### [facility] [address] [place] [address] PTTon 11-20-2018 aPTT Coag (Bld) [Time] 24.2 s Normal 20.6-27.7 [facility] Comment on above: Performed By: #### P TT #### [facility] [address] [place] [address] XR Chest 1 Viewon 11-20-2018 XR Chest [...] Electronically Signed in Other Vendor System) Normal [facility] XR Chest 2 Viewson 9 XR [...] Electronically Signed in Other Vendor System) Normal [facility] Cult,Urineon 10-25-2017 Cult,Urine Specimen Description .CLEAN CATCH URINE Performed at [address] [place] [address] Special Requests NOT REPORTEDCulture NO GROWTH Performed at [place] [address] [place] [address] Report Status FINAL 10/25/2017 Normal [facility] Comment on above: Performed By: #### U RC ####[place] [address] [place], [place] [phone] [place] [address] CBC with Diffon 10-24-2017 Abs. Basophil 0.05 k/uL Normal 0.00-0.20 [facility] Comment on above: Performed By: #### C DP, CP, LIP ####[address] [place] [address] Abs.Neutrophil (Seg) 5.37 k/uL Normal 1.50-8.10 [facility] Comment on above: Performed By: #### C DP, CP, LIP ####[address] [place] [address] Basophils/100 WBC Auto (Bld) 1 % Normal 0-2 [facility] Comment on above: Performed By: #### C DP, CP, LIP ####[address] , [place] [address] Eosinophils 0.57 10*3/uL High 0.00-0.44 [facility] Comment on above: Performed By: #### C DP, CP, LIP ####[address] [place] [address] Eosinophils/100 leukocytes 7 % High 1-4 [facility] Comment on above: Performed By: #### C DP, CP, LIP ####[address] [place] [id number] Erythrocyte distribution width Auto Ratio (RBC) 13.4 % Normal 11.8-14.4 [facility] Comment on above: Performed By: #### C DP, CP, LIP ####[address] , [facility]83 Erythrocytes (RBC) 0.0 per 100 WBC Normal 0.0 M [facility] Comment on above: Performed By: #### C DP, CP, LIP ####[address] , [facility]83 Erythrocytes (RBC) 5.69 10*6/uL Normal 4.21-5.77 [facility] Comment on above: Performed By: #### C DP, CP, LIP ####[address] , [facility]83 Granulocytes/100 WBC (Bld) 0.04 k/uL Normal 0.00-0.30 [facility] Comment on above: Result Comment: Perf ormed at [address] [place] [address] Performed By: #### C DP, CP, LIP ####[address] [place] [address] Hematocrit (HCT) 51.0 % High 40.7-50.3 [facility] Comment on above: Performed By: #### C DP, CP, LIP ####[address] , [facility]83 Hemoglobin mass conc (Bld) 18.0 g/dL High 13.0-17.0 [facility] Comment on above: Performed By: #### C DP, CP, LIP ####[address] [place] [address] Immature granulocytes #/vol (Bld) 1 % High 0 [facility] Comment on above: Performed By: #### C DP, CP, LIP ####[address] , [facility]83 Lymphocytes 1.35 10*3/uL Normal 1.10-3.70 [facility] Comment on above: Performed By: #### C DP CP, LIP ####[address] [place] [address] Lymphocytes/100 leukocytes 15 % Low 24-43 [facility] Comment on above: Performed By: #### C DP CP, LIP ####[address] [place] [address] MCH 31.6 pg Normal 25.2-33.5 [facility] Comment on above: Performed By: #### C SANDRA CP, LIP ####[address] [place] [address] MCHC mass conc (RBC) 35.3 g/dL High 28.4-34.8 [facility] Comment on above: Performed By: #### C SANDRA CP, LIP ####[address] , [facility]83 MCV 89.6 fL Normal 82.6-102.9 [facility] Comment on above: Performed By: #### C SANDRA CP, LIP ####[address] [place] [address] Monocytes 1.36 10*3/uL High 0.10-1.20 [facility] Comment on above: Performed By: #### C DP, CP, LIP ####[address] , [facility]83 Monocytes/100 leukocytes 16 % High 3-12 [facility] Comment on above: Performed By: #### C DP, CP, LIP ####[address] [place] [address] Neutrophil (Seg) 61 % Normal 36-65 [facility] Comment on above: Performed By: #### C DP, CP, LIP ####[address] [place] [address] Platelet mean volume (PMV) 10.5 fL Normal 8.1-13.5 [facility] Comment on above: Performed By: #### C DP, CP, LIP ####[address] [place] [address] Platelets 186 10*3/uL Normal 138-453 [facility] Comment on above: Performed By: #### C DP, CP, LIP ####[address] [place] [address] WBC (Leukocytes) 8.7 10*3/uL Normal 3.5-11.3 [facility] Comment on above: Performed By: #### C DP, CP, LIP ####[address] [place] [address] Auto Diff Performed NOT REPORTED Normal [facility] Comment on above: Performed By: #### C DP, CP, LIP ####[address] [place] [address] Erythrocyte morphology NOT REPORTED Normal [facility] Comment on above: Performed By: #### C DP, CP, LIP ####[address] [place] [address] Platelets NOT REPORTED Normal [facility] Comment on above: Performed By: #### C DP, CP, LIP ####[address] [place] [address] WBC Morphology NOT REPORTED Normal [facility] Comment on above: Performed By: #### C DP, CP, LIP ####[address] [place] [address] Comp Metabolic Profon 2017 (cont.) Normal [facility] Comment on above: Result Comment: Aver age GFR for 50-59 years old: 93 mL/min/1.73sq mChronic Kidney Disease: <60 mL/min/1.73sq mKidney failure: <15 mL/min/1.73sq meGFR calculated using average adult body mass. Additional eGFR calculator available at:http://www.CASTT/multiple_crcl_2012.htm Performed By: #### C DP, CP, LIP ####[address] [place] [address] Alanine aminotransferase (ALT) 18 U/L Normal 5-41 [facility] Comment on above: Performed By: #### C DP, CP, LIP ####[address] [place] [address] Albumin 4.2 g/dL Normal 3.5-5.2 [facility] Comment on above: Performed By: #### C DP, CP, LIP ####[address] [place] [address] Albumin/Globulin Ratio 1.2 {ratio} Normal 1.0-2.5 [facility] Comment on above: Performed By: #### C DP, CP, LIP ####[address] [place] [address] Alkaline Phos 74 U/L Normal 40-129 [facility] Comment on above: Performed By: #### C DP, CP, LIP ####[address] [place] [address] Anion gap 16 mmol/L Normal 9-17 [facility] Comment on above: Performed By: #### C DP, CP, LIP ####[address] [place] [address] Aspartate aminotransferase (AST) 24 U/L Normal <40 [facility] Comment on above: Performed By: #### C DP, CP, LIP ####[address] [place] [address] Bilirubin Ql (U) 0.64 mg/dL Normal 0.3-1.2 [facility] Comment on above: Performed By: #### C DP, CP, LIP ####[facility] [place] [address] BUN/CRE Ratio 15 Normal 9-20 [facility] Comment on above: Performed By: #### C DP, CP, LIP ####[facility] [place] [address] Calcium 9.2 mg/dL Normal 8.6-10.4 [facility] Comment on above: Performed By: #### C DP, CP, LIP ####[address] [place] [address] Chloride 91 mmol/L Low 98-107 [facility] Comment on above: Performed By: #### C DP, CP, LIP ####[address] [place] [address] CO2 23 mmol/L Normal 20-31 [facility] Comment on above: Performed By: #### C DP, CP, LIP ####[address] [place] [address] Creatinine 0.94 mg/dL Normal 0.70-1.20 [facility] Comment on above: Performed By: #### C DP, CP, LIP ####[address] [place] [address] eGFR (non-black) mL/min/{1.73_m2} Normal >60 [facility] Comment on above: Performed By: #### C DP, CP, LIP ####[address] [place] [address] Glucose mass conc 113 mg/dL High 70-99 [facility] Comment on above: Performed By: #### C DP, CP, LIP ####[address] [place] [address] Potassium molar conc 4.8 mmol/L Normal 3.7-5.3 [facility] Comment on above: Performed By: #### C DP, CP, LIP ####[address] [place] [address] Protein 7.6 g/dL Normal 6.4-8.3 [facility] Comment on above: Performed By: #### C DP, CP, LIP ####[address] [place] [address] Sodium 130 mmol/L Low 135-144 [facility] Comment on above: Performed By: #### C DP, CP, LIP ####[address] [place] [address] Staging: Normal [facility] Comment on above: Result Comment: Stag e 1: Some kidney damage normal GFRStage 2: Mild kidney damage GFR 60-89Stage 3: Moderate kidney damage GFR 30-59Stage 4: Severe kidney damage GFR 15-29Stage 5: Severe kidney damage GFR <15ESRD - chronic treatment by dialysis or transplantPerformed at [address] [place] [address] Performed By: #### C DP, CP, LIP ####[address] [place] [address] Urea nitrogen 14 mg/dL Normal 6-20 [facility] Comment on above: Performed By: #### C DP, CP, LIP ####[address] [place] [address] Lipaseon 10-24-2017 Lipase 27 U/L Normal 13-60 [facility] Comment on above: Result Comment: Perf ormed at [address] [place] [address] Performed By: #### C DP, CP, LIP ####[address] [place] [address] Urinalysis w/ Microon 2017 ----- Normal [facility] Comment on above: Performed By: #### U AMIC ####[address] [place] [address] Acetaminophen mass conc 1+ Abnormal NEG [facility] Comment on above: Performed By: #### U AMIC ####[address] [place] [address] Bilirubin (direct) Negative Normal NEG [facility] Comment on above: Performed By: #### U AMIC ####[address] [place] [address] Hemoglobin mass conc (Bld) Negative Normal NEG [facility] Comment on above: Performed By: #### U AMIC ####[address] [place] [address] Nitrite,Ur Negative Normal NEG [facility] Comment on above: Performed By: #### U AMIC ####[address] [place] [address] Turbidity CLEAR Normal CLEAR [facility] Comment on above: Performed By: #### U AMIC ####[address] [place] [address] Urine WBC's 0 TO 2 Normal 0-5 [facility] Comment on above: Performed By: #### U AMIC ####[address] [place] [address] Urine, color YELLOW Normal YEL [facility] Comment on above: Performed By: #### U AMIC ####[address] [place] [address] Urine, epithelial cells in sediment 0 TO 2 Normal 0-5 [facility] Comment on above: Result Comment: Perf ormed at [address] [place] [address] Performed By: #### U AMIC ####[address] [place] [address] Urine, erythrocytes 0 TO 2 Normal 0-2 [facility] Comment on above: Performed By: #### U AMIC ####[address] [place] [address] Urine, glucose presence Negative Normal NEG [facility] Comment on above: Performed By: #### U AMIC ####[address] [place] [address] Urine, leukocyte esterase presence Negative Normal NEG [facility] Comment on above: Performed By: #### U AMIC ####[address] [place] [address] Urine, pH 6.5 [pH] Normal 5.0-9.0 [facility] Comment on above: Performed By: #### U AMIC ####[address] [place] [address] Urine, protein presence Negative Normal NEG [facility] Comment on above: Performed By: #### U AMIC ####[address] [place] [address] Urine, specific gravity <1.005 Low 1.010-1.020 [facility] Comment on above: Performed By: #### U AMIC ####[address] [place] [address] Urobilinogen,Ur Normal Normal NORM [facility] Comment on above: Performed By: #### U AMIC ####[address] [place] [address] Comment NOT REPORTED Normal [facility] Comment on above: Performed By: #### U AMIC ####[address] [place] [address] Epithelial, Renal NOT REPORTED Normal 0 [facility] Comment on above: Performed By: #### U AMIC ####[address] [place] [address] Mucus Strands NOT REPORTED Normal NONE [facility] Comment on above: Performed By: #### U AMIC ####[address] [place] [address] Other Observations NOT REPORTED [facility] Comment on above: Performed By: #### U AMIC ####[address] [place] [address] Trichomonas NOT REPORTED Normal NONE [facility] Comment on above: Performed By: #### U AMIC ####[address] [place] [address] Urine, amorphous sediment presence in sediment NOT REPORTED Normal NONE [facility] Comment on above: Performed By: #### U AMIC ####[address] [place] [address] Urine, bacteria in sediment NOT REPORTED Normal NONE [facility] Comment on above: Performed By: #### U AMIC ####[address] [place] [address] Urine, casts in sediment NOT REPORTED Normal [facility] Comment on above: Performed By: #### U AMIC ####[address] [place] [address] Urine, crystals in sediment NOT REPORTED Normal [facility] Comment on above: Performed By: #### U AMIC ####[address] [place] [address] Urine, yeast presence in sediment NOT REPORTED Normal [facility] Comment on above: Performed By: #### U AMIC ####[address] [place] [address] Discharge Summaryon 03-11-20 17 HIM IP Note 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 Start: 11-20-2018 End: 11-20-2018 Patient encounter procedure GEE JONES Facility:[facility] Start: 10-24-2017 End: 10-24-2017 Emergency department patient visit ANABEL Abdullahi [facility] Start: 12-27-2016 End: 12-28-2016 Ambulatory [facility] Procedures Date Procedure Procedure Detail Performing Clinician Start: 10-24-2017 NURSING COMMUNICATION S RAINA [place] Start: 10-24-2017 URINALYSIS WITH MICROSCOPIC [place]NABEL [place] Start: 10-24-2017 URINE CULTURE ANABEL [place] Start: 10-24-2017 CBC WITH AUTO DIFFERENTIAL ANABEL [place] Start: 10-24-2017 COMPREHENSIVE METABOLIC PANEL ANABEL [place] Start: 10-24-2017 LIPASE ANABEL VALDEZ [place] Start: 10-24-[address] EVEN [place] Payers Date Payer Category Payer Self-pay 2016 Unknown [id number] 2015 Unknown [id number] 1965 Unknown [id number] Progress note 12-10-2023 Note Date & Type Note Facility 12-10-2023 Note [facility] Note Reason for cardiology consult: New patient here to establish care. Ref from Dr. Emerald Jean for syncope. Chief Complaint: Syncope and dyspnea on exertion HPI: Ahsan Nielsen is a 58 y.o. male without prior cardiac history. Hypertension was diagnosed recently and he was started on lisinopril. He denies history of hyperlipidemia or diabetes mellitus. He is a longtime smoker. He presented to [facility] ED last month for syncope. He says [...] or tachyarrhythmias. Dys (more content not included)... [facility] Summary Purpose Family History No Family History [...] [1] Hospital Course He ruled out for [place]. Chest x-ray was normal. Stress test was [...] and content) DATE CREATED AUTHOR 12/25/2017 [facility] DATE CREATED AUTHOR AUTHOR'S ORGANIZ ATION 04/15/2019 [facility] DATE CREATED AUTHOR AUTHOR'S ORGANIZ ATION 12/16/2023 [facility] FOR RECORDS PERTAINING TO PATIENTS WHO [...] BE BASED ON THE PRIMARY CLINICAL RECORDS. [employer] provides no warranty or guarantee of the accuracy or completeness of information in this document.
[2024-01-06 09:07] LABS: Hemoglobin 15.6 g/dL (14.0-18.0)
--- NOTE | 2024-01-06 10:12 | RT_ITS ---
[facility] Test Date: 2024-01-06 Pat Name: NIELS NIELSEN Department: Room: - Gender: Male [employer] Machine Tender: Olga Lidia Hsu RRT : 1965 Requested By: [id number] Order Number: [id number] Reading MD: Clay Floyd Interpretive Statements Pulmonary function testing was completed according to ATS criteria. Findings were considered accurate and reproducible, with exception of DLCO which did not meet ATS standards. Both pre- and post-bronchodilator values utilized for spirometry. Spirometry (based on pre-bronchodilator values): -FEV1/FVC: Low normal @ 70% -FEV1: Moderately reduced @ 69% -FVC: Reduced @ 74% -There is no significant bronchodilator response. Lung volumes by plethysmography: -RV: Increased @ 142% -TLC: Normal @ 87% Diffusion capacity: -DLCO: Moderate reduction @ 65% when corrected for Hb 15.6g/dL Impressions: -Spirometry trends towards moderate obstruction. An elevated RV suggests air trapping. There is a moderately reduced diffusion capacity. Overall study is compatible with COPD/emphysema. Clinical correlation required. Electronically Signed On 01-12-2024 8:17:28 EDT by Clay Floyd
[2024-01-06] MEDS: ALBUTEROL SULFATE 2.5 MG/3 ML VIAL NEB IH (10:37)
== END 2024-01-06 08:57 | disposition home or self-care (01) ==
LOC: CARD 08:56
PROVIDERS: PCP Nurse Practitioner; Visit Provider Nurse Practitioner
DX: R06.02 Shortness of breath (principal)
CPT/HCPCS: 36415; 85018; 94060; 94726; 94729

== ENCOUNTER 2024-01-07 07:48 | Outpatient (OUT) | payer OTHER, SELFPAY ==
--- OUTSIDE RECORDS SUMMARY | 2024-01-07 07:52 | XMS_ITS | CCD ---
Author Organization [place] [employer] [facility] Care Team Providers Care Electric Range Servicer Name Role Phone ANABEL LONG Unavailable Unavailable [...] Propensity to adverse reactions to drug (disorder) [facility] Repository Problems Problem Classification Problem Date Documented [...] with patient's and made her aware. Normal [facility] Orders Onlyon 12-11-2023 Orders Only [id number] Javier Nielsen A 1965 M Date Provider Department Center 12/11/2023 KAITLIN ROY Family History Problem Relation Age of Onset Cancer Mother COPD Father Family Status - Relation Status Age at Mother Father Normal [facility] Office Visiton 12-10-2023 Follow-up visit [id number] Javier Nielsen A 1965 M Date Provider Department Center 12/10/2023 ELISABETH BOOTH Family History Problem Relation Age of Onset Cancer Mother COPD Father Family Status - Relation Status Age at Mother Father Level of Service:53016 SC OFFICE/OUTPATIENT NEW MODERATE MDM 45 MINUTES Normal [facility] Family Medicine Office/Clini c Noteon 11-27-2018 [...] Guille Khan PA-C 11/27/18 15:46 EDT Normal [facility] .eGFRon 11-20-2018 eGFR AA >60 Normal >=60 [facility] Comment on above: Result Comment: Resu lt = 0-14.9 mL/min/1.73 m2 Kidney failure or Dialysis Result = 15-29 mL/min/1.73 m2 Severe decrease in GFR Result = 30-59 mL/min/1.73 m2 Moderate decrease in GFR Result >= 60 mL/min/1.73 m2 Normal or increased GFR Performed By: #### E GFR #### [place] [id number] eGFR Non-AA >60 Normal >=60 [facility] Comment on above: Result Comment: Resu lt [...] Performed By: #### E GFR #### [address] [address] AMI 2Hron 11-20-2018 2 Hour Myoglobin 22.0 ng/mL Normal 17.4-105.7 [facility] Comment on above: Performed By: #### C BC #### [address] [address] Troponin I.cardiac [Mass/Vol] ng/mL Normal 0.00-0.03 [facility] Comment on above: Result Comment: An i ncreased Troponin-I value, in the absence of myocardial ischemia, may indicate other etiologies of cardiac damage. Performed By: #### C BC #### [address] [address] AMI Initon 11-20-2018 Initial Myoglobin 29.0 ng/mL Normal 17.4-105.7 [facility] Comment on above: Performed By: #### A MI1 #### [address] [address] Troponin I.cardiac [Mass/Vol] ng/mL Normal 0.00-0.03 [facility] Comment on above: Result Comment: An i ncreased Troponin-I value, in the absence of myocardial ischemia, may indicate other etiologies of cardiac damage. Performed By: #### A MI1 #### [address] [address] [id number] 11-20-2018 6 Hour Myoglobin 27.0 ng/mL Normal 17.4-105.7 [facility] Comment on above: Performed By: #### C BC #### [address] [address] Troponin I.cardiac [Mass/Vol] ng/mL Normal 0.00-0.03 [facility] Comment on above: Result Comment: An i ncreased Troponin-I value, in the absence of myocardial ischemia, may indicate other etiologies of cardiac damage. Performed By: #### C BC #### [address] [address] Basic Metabolic Profileon Anion gap [Moles/Vol] 14 mmol/L Normal 7-17 [facility] Comment on above: Performed By: #### C [id number] #### [address] [address] Calcium [Mass/Vol] 8.7 mg/dL Normal 8.5-10.3 [facility] Comment on above: Performed By: #### C [id number] #### [address] [address] Chloride [Moles/Vol] 105 mmol/L Normal 98-110 [facility] Comment on above: Performed By: #### C [id number] #### [address] [address] CO2 [Moles/Vol] 22 mmol/L Normal 22-32 [facility] Comment on above: Performed By: #### C [id number] #### [address] [address] Creatinine [Mass/Vol] 0.70 mg/dL Normal 0.61-1.24 [facility] Comment on above: Performed By: #### C [id number] #### [address] [address] Glucose [Mass/Vol] 100 mg/dL Normal 74-118 [facility] Comment on above: Performed By: #### C [id number] #### [address] [address] Potassium [Moles/Vol] 4.4 mmol/L Normal 3.4-4.8 [facility] Comment on above: Performed By: #### C [id number] #### [address] [address] Sodium [Moles/Vol] 137 mmol/L Normal 133-142 [facility] Comment on above: Performed By: #### C [id number] #### [address] [address] Urea nitrogen [Mass/Vol] 13 mg/dL Normal 8-26 [facility] Comment on above: Performed By: #### C [id number] #### [address] [address] Urea nitrogen/Creatinine [Mass ratio] 18.6 mg/mg Normal 10.0-20.0 [facility] Comment on above: Performed By: #### C [id number] #### [address] [address] CBC w/ Diffon 11-20-2018 Erythrocyte distribution width (RBC) [Ratio] 13.0 % Normal 11.6-14.8 [facility] Comment on above: Performed By: #### C BC #### [address] [address] Hematocrit (Bld) [Volume fraction] 46.3 % Normal 41.0-53.0 [facility] Comment on above: Performed By: #### C BC #### [address] [address] Hemoglobin (Bld) [Mass/Vol] 15.8 g/dL Normal 13.5-17.5 [facility] Comment on above: Performed By: #### C BC #### [address] [address] MCH (RBC) [Entitic mass] 32.5 pg Normal 27.0-35.0 [facility] Comment on above: Performed By: #### C BC #### [address] [address] MCHC (RBC) [Mass/Vol] 34.1 % Normal 31.0-37.0 [facility] Comment on above: Performed By: #### C BC #### [address] [address] MCV (RBC) [Entitic vol] 95.3 fL Normal 80.0-100.0 [facility] Comment on above: Performed By: #### C BC #### [address] [address] Platelet mean volume (Bld) [Entitic vol] 8.6 fL Normal 6.7-10.6 [facility] Comment on above: Performed By: #### C BC #### [address] [address] Platelets (Bld) [#/Vol] 202 x10*3/mcL Normal 150-350 [facility] Comment on above: Performed By: #### C BC #### [address] [address] RBC (Bld) [#/Vol] 4.86 x10*6/mcL Normal 4.30-5.80 [facility] Comment on above: Performed By: #### C BC #### [address] [address] WBC (Bld) [#/Vol] 12.8 x10*3/mcL High 4.5-11.0 [facility] Comment on above: Performed By: #### C #### [facility] [address] [place] [address] Cardiology Consultationon Cardiology Consultation Chief Complaint dyspnea [...] BEDOLLA, Deion Flynn 11/20/18 16:18 EDT Normal [facility] Operating Room Registered Nurse Progress Noteon 11-20-2018 Operating Room Registered Nurse Progress Note ROSA met with patient before huddles today. He is new to the floor from ER for chest pain. he is asking to go home since unable to do a stress test today. ROSA will update RN, educated patient on remaining in the hospital while labs are trending for [place]. He does have insurance, independent with adl's, [...] Recieved a call back from Dr. quintana admin secretary. Upon discussion, we reviewed patient listed [...] his job established. Refuses to speak to manager of financial planning when CM offered. Offered self pay education pamphlet as well, pt refuses stating he will get it figured out. CM put financial assistance program in chart for Discharge. Electronically signed by ___ Leidy Chapin 11/20/18 14:32 EDT Normal [facility] D-Dimeron 11-20-2018 Fibrin D-dimer FEU IA (Bld) [Mass/Vol] 0.34 mg/L feu Normal 0.00-0.49 [facility] Comment on above: Result Comment: Resu lts [...] Performed By: #### D TRACY #### [address] [address] Diff Autoon 11-20-2018 Baso Absolute 0.1 x10*3/mcL Normal 0.0-0.2 [facility] Comment on above: Performed By: #### . Automated Diff #### [address] [address] Basophils/100 WBC (Bld) 0.8 % Normal 0.0-1.2 [facility] Comment on above: Performed By: #### . Automated Diff #### [address] [address] Eos Absolute 0.2 x10*3/mcL Normal 0.0-0.4 [facility] Comment on above: Performed By: #### . Automated Diff #### [address] [address] Eosinophils/100 WBC (Bld) 1.9 % Normal 0.0-6.1 [facility] Comment on above: Performed By: #### . Automated Diff #### [address] [address] Lymphocytes (Bld) [#/Vol] 3.5 x10*3/mcL Normal 1.0-4.8 [facility] Comment on above: Performed By: #### . Automated Diff #### [address] [address] Lymphocytes/100 WBC (Bld) 27.3 % Normal 27.2-40.8 [facility] Comment on above: Performed By: #### . Automated Diff #### [place] [id number] [place] Absolute 0.9 x10*3/mcL Normal 0.3-1.1 [facility] Comment on above: Performed By: #### . Automated Diff #### [place] [id number] Monocytes/100 WBC (Bld) 6.9 % Normal 4.7-13.9 [facility] Comment on above: Performed By: #### . Automated Diff #### [place] [id number] Neutro Absolute 8.1 x10*3/mcL High 1.8-7.7 [facility] Comment on above: Performed By: #### . Automated Diff #### [place] [address] Neutro Auto 63.1 % Normal 47.2-70.8 [facility] Comment on above: Performed By: #### . Automated Diff #### [place] [id number] ED Clinical Summaryon 2018 ED Clinical Summary (Inserted Image. Ale ble to display) [place] [address] ED Clinical Summary Person Information Name: Ahsan Nielsen [facility] Age: 53 Years : 1965 Sex: Male PCP: Marital Status: Single Phone: Race: White Ethnicity: Not or Language: Telugu Visit Reason: Dyspnea; Chest pain - Cardiac Acuity: 2 Enc Type: Observation Med Service: Emergency Medicine Arrival: 11/20/2018 07:05:00 Discharge: LOS: 000 01:54 Checkin: 11/20/2018 07:05:00 Checkout: 11/20/2018 08:59:41 Dispo Type: Admitted to ICU Address: [address] [place], [place] [id number] Provider Notes: History of Present Illness Patient [...] range between ( 27.2 and 40.8 ) [place] Auto: 6.9 % -- Normal range between [...] range between ( 41.0 and 53.0 ) [place] Absolute: 0.9 x10 MCH: 32.5 pg -- [...] Unit, Jen Bey DO Patient Education Information: [facility] Poison Help line: . [facility] Hotline: [place] [employer] Quit Line: [place], [place]) [address]: [phone] [place], [place]) [address]: [phone] [facility] [address] [place], [place]: [phone] Normal [facility] ED Note-Nursingon 11-20-2018 ED Note-Nursing Summer Babysitter obtained admission room - CCU charge nurse requests 10 minutes before transport Electronically signed by ___ Rachel Sandra 11/20/18 08:47 EDT Normal [facility] ED Note-Physicianon 11-21-19 19 ED Note-Physician Chief [...] in this document, created by the medical insurance coding specialist for me, accurately reflects the services [...] from someone other than the patient: Reviewed [facility] EMR to see if recent visits or hospitalizations. Review and summarized past medical records if pertinent and available in [employer]: Data Interpretation: I have have reviewed returned data from lab. Clinically important interpretation is: CBC is unremarkable Basic Metabolic panel with normal renal function, no significant abnormality Coags normal Initial cardiac enzymes negative d-d-tracy neg EKG: EKG time: 706 Rhythm:[normal sinus] Rate:88 [place]:[normal] QRS:81 QT interval:399 ST/T wave changes: No [...] 07:12 63.1 Lymph Auto 11/20/18 07:12 27.3 [place] Auto 11/20/18 07:12 6.9 Eos Auto 11/20/18 07:12 1.9 Basophil Auto 11/20/18 07:12 0.8 Neutro Absolute 11/20/18 07:12 8.1 High Lymph Absolute 11/20/18 07:12 3.5 [place] Absolute 11/20/18 07:12 0.9 Eos Absolute 11/20/18 [...] Ramy Dooley DO 11/20/2018 08:35 EDT Normal [facility] History and Physicalon 11-20 History and Physical [...] 95.3 (11/20/18) Mean Platelet Volume: 8.6 (11/20/18) [place] Absolute: 0.9 (11/20/18) [place] Auto: 6.9 (11/20/18) Neutro Absolute: 8.1 (11/20/18) Neutro Auto: 63.1 (11/20/18) PT: 9.7 (11/20/18) PTT: 24.2 (11/20/18) RBC: 4.86 (11/20/18) RDW: 13.0 (11/20/18) Assessment/Plan 1. Chest pain Rule out [place] Stress test Cardiology consult 2. Dyspnea Repeat [...] Gee Jones MD 11/20/18 10:06 EDT Normal [facility] Inpatient Clinical Summaryon 11-20-2018 Inpatient Clinical Summary [address] [address] Clinical Summary Person Information Name: Ahsan Nielsen Age: 53 Years : 1965 Sex: Male PCP: Marital Status: Single Phone: PCP: Race: White Ethnicity: Not or Language: Telugu Visit Id: Visit Reason: Dyspnea; Chest pain - Cardiac Speciality: Acuity: Enc Type: Observation Med Service: Emergency Medicine Arrival: 11/20/2018 07:05:00 Discharge: Dispo Type: Admitted to ICU Address: [address] [place] [address] Diagnosis: 1:Chest pain; 2:Dyspnea; 3:Palpitations; 4:Hypertension Discharged [...] range between ( 27.2 and 40.8 ) [place] Auto: 6.9 % -- Normal range between [...] range between ( 41.0 and 53.0 ) [place] Absolute: 0.9 x10 MCH: 32.5 pg -- [...] up: With: Address: When: Guille Khan [address] [facility], [address] [place] [phone] Business (1) 11/27/2018 15:00:00 Comments: Appointment Scheduled Type Location Start [facility] New Patient Visit 30 Jourdan Redman 11/27/2018 15:00:00 11/27/2018 15:30:00 Confirmed Normal [facility] NM CARDIOLITE W/EXER STRESSo n 11-20-2018 NM [...] peak heart rate and blood pressure was [address] mm Hg/min. Stress ECG: The stress ECG [...] Electronically Signed in Other Vendor System) Normal [facility] PTon 11-20-2018 INR Coag (PPP) [Relative time] 0.9 {INR} Normal <=3.5 [facility] Comment on above: Result Comment: INR has no normal range. INR Therapeutic range is: 2.0-3.0 (AF, CVA, TIAs, DVT prophylaxis, acute DVT) 2.5-3.5 ([facility] heart valves, recurrent thrombosis/emboli) Performed By: #### P TINR #### [address] [address] PT Coag (PPP) [Time] 9.7 s Normal 9.2-11.7 [facility] Comment on above: Performed By: #### P TINR #### [facility] [address] [place] [address] PTTon 11-20-2018 aPTT Coag (Bld) [Time] 24.2 s Normal 20.6-27.7 [facility] Comment on above: Performed By: #### P TT #### [facility] [address] [place] [address] XR Chest 1 Viewon 11-20-2018 XR Chest [...] Electronically Signed in Other Vendor System) Normal [facility] XR Chest 2 Viewson 9 XR Chest [...] Electronically Signed in Other Vendor System) Normal [facility] Cult,Urineon 10-25-2017 Cult,Urine Specimen Description .CLEAN CATCH URINE Performed at [address] [place] [address] Special Requests NOT REPORTEDCulture NO GROWTH Performed at [place] [address] [place] [address] Report Status FINAL 10/25/2017 Normal [facility] Comment on above: Performed By: #### U RC ####[place] [address] [place], [place] [phone] [place] [address] CBC with Diffon 10-24-2017 Abs. Basophil 0.05 k/uL Normal 0.00-0.20 [facility] Comment on above: Performed By: #### C DP, CP, LIP ####[address] [place] [address] Abs.Neutrophil (Seg) 5.37 k/uL Normal 1.50-8.10 [facility] Comment on above: Performed By: #### C DP, CP, LIP ####[address] [place] [address] Basophils/100 WBC Auto (Bld) 1 % Normal 0-2 [facility] Comment on above: Performed By: #### C DP, CP, LIP ####[address] , [place] [address] Eosinophils 0.57 10*3/uL High 0.00-0.44 [facility] Comment on above: Performed By: #### C DP, CP, LIP ####[address] [place] [address] Eosinophils/100 leukocytes 7 % High 1-4 [facility] Comment on above: Performed By: #### C DP, CP, LIP ####[address] [place] [id number] Erythrocyte distribution width Auto Ratio (RBC) 13.4 % Normal 11.8-14.4 [facility] Comment on above: Performed By: #### C DP, CP, LIP ####[address] , [facility]83 Erythrocytes (RBC) 0.0 per 100 WBC Normal 0.0 [facility] Comment on above: Performed By: #### C DP, CP, LIP ####[address] , [facility]83 Erythrocytes (RBC) 5.69 10*6/uL Normal 4.21-5.77 [facility] Comment on above: Performed By: #### C DP, CP, LIP ####[address] , [facility]83 Granulocytes/100 WBC (Bld) 0.04 k/uL Normal 0.00-0.30 [facility] Comment on above: Result Comment: Perf ormed at [address] [place] [address] Performed By: #### C DP, CP, LIP ####[address] [place] [address] Hematocrit (HCT) 51.0 % High 40.7-50.3 [facility] Comment on above: Performed By: #### C DP, CP, LIP ####[address] , [facility]83 Hemoglobin mass conc (Bld) 18.0 g/dL High 13.0-17.0 [facility] Comment on above: Performed By: #### C DP, CP, LIP ####[address] [place] [address] Immature granulocytes #/vol (Bld) 1 % High 0 [facility] Comment on above: Performed By: #### C DP, CP, LIP ####[address] , [facility]83 Lymphocytes 1.35 10*3/uL Normal 1.10-3.70 [facility] Comment on above: Performed By: #### C DP CP, LIP ####[address] [place] [address] Lymphocytes/100 leukocytes 15 % Low 24-43 [facility] Comment on above: Performed By: #### C DP CP, LIP ####[address] [place] [address] MCH 31.6 pg Normal 25.2-33.5 [facility] Comment on above: Performed By: #### C SANDRA CP, LIP ####[address] [place] [address] MCHC mass conc (RBC) 35.3 g/dL High 28.4-34.8 [facility] Comment on above: Performed By: #### C SANDRA CP, LIP ####[address] , [facility]83 MCV 89.6 fL Normal 82.6-102.9 [facility] Comment on above: Performed By: #### C SANDRA CP, LIP ####[address] [place] [address] Monocytes 1.36 10*3/uL High 0.10-1.20 [facility] Comment on above: Performed By: #### C DP, CP, LIP ####[address] , [facility]83 Monocytes/100 leukocytes 16 % High 3-12 [facility] Comment on above: Performed By: #### C DP, CP, LIP ####[address] [place] [address] Neutrophil (Seg) 61 % Normal 36-65 [facility] Comment on above: Performed By: #### C DP, CP, LIP ####[address] [place] [address] Platelet mean volume (PMV) 10.5 fL Normal 8.1-13.5 [facility] Comment on above: Performed By: #### C DP, CP, LIP ####[address] [place] [address] Platelets 186 10*3/uL Normal 138-453 [facility] Comment on above: Performed By: #### C DP, CP, LIP ####[address] [place] [address] WBC (Leukocytes) 8.7 10*3/uL Normal 3.5-11.3 [facility] Comment on above: Performed By: #### C DP, CP, LIP ####[address] [place] [address] Auto Diff Performed NOT REPORTED Normal [facility] Comment on above: Performed By: #### C DP, CP, LIP ####[address] [place] [address] Erythrocyte morphology NOT REPORTED Normal [facility] Comment on above: Performed By: #### C DP, CP, LIP ####[address] [place] [address] Platelets NOT REPORTED Normal [facility] Comment on above: Performed By: #### C DP, CP, LIP ####[address] [place] [address] WBC Morphology NOT REPORTED Normal [facility] Comment on above: Performed By: #### C DP, CP, LIP ####[address] [place] [address] Comp Metabolic Profon 2017 (cont.) Normal [facility] Comment on above: Result Comment: Aver age GFR for 50-59 years old: 93 mL/min/1.73sq mChronic Kidney Disease: <60 mL/min/1.73sq mKidney failure: <15 mL/min/1.73sq meGFR calculated using average adult body mass. Additional eGFR calculator available at:http://www.VideoLens/multiple_crcl_2012.htm Performed By: #### C DP, CP, LIP ####[address] [place] [address] Alanine aminotransferase (ALT) 18 U/L Normal 5-41 [facility] Comment on above: Performed By: #### C DP, CP, LIP ####[address] [place] [address] Albumin 4.2 g/dL Normal 3.5-5.2 [facility] Comment on above: Performed By: #### C DP, CP, LIP ####[address] [place] [address] Albumin/Globulin Ratio 1.2 {ratio} Normal 1.0-2.5 [facility] Comment on above: Performed By: #### C DP, CP, LIP ####[address] [place] [address] Alkaline Phos 74 U/L Normal 40-129 [facility] Comment on above: Performed By: #### C DP, CP, LIP ####[address] [place] [address] Anion gap 16 mmol/L Normal 9-17 [facility] Comment on above: Performed By: #### C DP, CP, LIP ####[address] [place] [address] Aspartate aminotransferase (AST) 24 U/L Normal <40 [facility] Comment on above: Performed By: #### C DP, CP, LIP ####[address] [place] [address] Bilirubin Ql (U) 0.64 mg/dL Normal 0.3-1.2 [facility] Comment on above: Performed By: #### C DP, CP, LIP ####[facility] [place] [address] BUN/CRE Ratio 15 Normal 9-20 [facility] Comment on above: Performed By: #### C DP, CP, LIP ####[facility] [place] [address] Calcium 9.2 mg/dL Normal 8.6-10.4 [facility] Comment on above: Performed By: #### C DP, CP, LIP ####[address] [place] [address] Chloride 91 mmol/L Low 98-107 [facility] Comment on above: Performed By: #### C DP, CP, LIP ####[address] [place] [address] CO2 23 mmol/L Normal 20-31 [facility] Comment on above: Performed By: #### C DP, CP, LIP ####[address] [place] [address] Creatinine 0.94 mg/dL Normal 0.70-1.20 [facility] Comment on above: Performed By: #### C DP, CP, LIP ####[address] [place] [address] eGFR (non-black) mL/min/{1.73_m2} Normal >60 [facility] Comment on above: Performed By: #### C DP, CP, LIP ####[address] [place] [address] Glucose mass conc 113 mg/dL High 70-99 [facility] Comment on above: Performed By: #### C DP, CP, LIP ####[address] [place] [address] Potassium molar conc 4.8 mmol/L Normal 3.7-5.3 [facility] Comment on above: Performed By: #### C DP, CP, LIP ####[address] [place] [address] Protein 7.6 g/dL Normal 6.4-8.3 [facility] Comment on above: Performed By: #### C DP, CP, LIP ####[address] [place] [address] Sodium 130 mmol/L Low 135-144 [facility] Comment on above: Performed By: #### C DP, CP, LIP ####[address] [place] [address] Staging: Normal [facility] Comment on above: Result Comment: Stag e 1: Some kidney damage normal GFRStage 2: Mild kidney damage GFR 60-89Stage 3: Moderate kidney damage GFR 30-59Stage 4: Severe kidney damage GFR 15-29Stage 5: Severe kidney damage GFR <15ESRD - chronic treatment by dialysis or transplantPerformed at [address] [place] [address] Performed By: #### C DP, CP, LIP ####[address] [place] [address] Urea nitrogen 14 mg/dL Normal 6-20 [facility] Comment on above: Performed By: #### C DP, CP, LIP ####[address] [place] [address] Lipaseon 10-24-2017 Lipase 27 U/L Normal 13-60 [facility] Comment on above: Result Comment: Perf ormed at [address] [place] [address] Performed By: #### C DP, CP, LIP ####[address] [place] [address] Urinalysis w/ Microon 2017 ----- Normal [facility] Comment on above: Performed By: #### U AMIC ####[address] [place] [address] Acetaminophen mass conc 1+ Abnormal NEG [facility] Comment on above: Performed By: #### U AMIC ####[address] [place] [address] Bilirubin (direct) Negative Normal NEG [facility] Comment on above: Performed By: #### U AMIC ####[address] [place] [address] Hemoglobin mass conc (Bld) Negative Normal NEG [facility] Comment on above: Performed By: #### U AMIC ####[address] [place] [address] Nitrite,Ur Negative Normal NEG [facility] Comment on above: Performed By: #### U AMIC ####[address] [place] [address] Turbidity CLEAR Normal CLEAR [facility] Comment on above: Performed By: #### U AMIC ####[address] [place] [address] Urine WBC's 0 TO 2 Normal 0-5 [facility] Comment on above: Performed By: #### U AMIC ####[address] [place] [address] Urine, color YELLOW Normal YEL [facility] Comment on above: Performed By: #### U AMIC ####[address] [place] [address] Urine, epithelial cells in sediment 0 TO 2 Normal 0-5 [facility] Comment on above: Result Comment: Perf ormed at [address] [place] [address] Performed By: #### U AMIC ####[address] [place] [address] Urine, erythrocytes 0 TO 2 Normal 0-2 [facility] Comment on above: Performed By: #### U AMIC ####[address] [place] [address] Urine, glucose presence Negative Normal NEG [facility] Comment on above: Performed By: #### U AMIC ####[address] [place] [address] Urine, leukocyte esterase presence Negative Normal NEG [facility] Comment on above: Performed By: #### U AMIC ####[address] [place] [address] Urine, pH 6.5 [pH] Normal 5.0-9.0 [facility] Comment on above: Performed By: #### U AMIC ####[address] [place] [address] Urine, protein presence Negative Normal NEG [facility] Comment on above: Performed By: #### U AMIC ####[address] [place] [address] Urine, specific gravity <1.005 Low 1.010-1.020 [facility] Comment on above: Performed By: #### U AMIC ####[address] [place] [address] Urobilinogen,Ur Normal Normal NORM [facility] Comment on above: Performed By: #### U AMIC ####[address] [place] [address] Comment NOT REPORTED Normal [facility] Comment on above: Performed By: #### U AMIC ####[address] [place] [address] Epithelial, Renal NOT REPORTED Normal 0 [facility] Comment on above: Performed By: #### U AMIC ####[address] [place] [address] Mucus Strands NOT REPORTED Normal NONE [facility] Comment on above: Performed By: #### U AMIC ####[address] [place] [address] Other Observations NOT REPORTED [facility] Comment on above: Performed By: #### U AMIC ####[address] [place] [address] Trichomonas NOT REPORTED Normal NONE [facility] Comment on above: Performed By: #### U AMIC ####[address] [place] [address] Urine, amorphous sediment presence in sediment NOT REPORTED Normal NONE [facility] Comment on above: Performed By: #### U AMIC ####[address] [place] [address] Urine, bacteria in sediment NOT REPORTED Normal NONE [facility] Comment on above: Performed By: #### U AMIC ####[address] [place] [address] Urine, casts in sediment NOT REPORTED Normal [facility] Comment on above: Performed By: #### U AMIC ####[address] [place] [address] Urine, crystals in sediment NOT REPORTED Normal [facility] Comment on above: Performed By: #### U AMIC ####[address] [place] [address] Urine, yeast presence in sediment NOT REPORTED Normal [facility] Comment on above: Performed By: #### U AMIC ####[address] [place] [address] Discharge Summaryon 03-11-20 17 HIM 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 [employer] Normal [facility] Encounters Encounter Date Encounter Type Care Provider Facility Start: 12-10-2023 End: 12-10-2023 ambulatory [facility] Start: 11-20-2018 End: 11-20-2018 Patient encounter procedure GEE JONES Facility:[facility] Start: 10-24-2017 End: 10-24-2017 Emergency department patient visit ANABEL Abdullahi [facility] Start: 12-27-2016 End: 12-28-2016 Ambulatory ANABEL Abdullahi [facility] Procedures Date Procedure Procedure Detail Performing Clinician Start: 10-24-2017 NURSING COMMUNICATION S RAINA ADMIRE Start: 10-24-2017 URINALYSIS WITH MICROSCOPIC ANABEL ADMIRE Start: 10-24-2017 URINE CULTURE ANABEL CO PELGIANLUCA Start: 10-24-2017 CBC WITH AUTO DIFFERENTIAL ANABEL ADMIRE Start: 10-24-2017 COMPREHENSIVE METABOLIC PANEL ANABEL ADMIRE Start: 10-24-2017 LIPASE ANABEL VALDEZ ELGIANLUCA Start: 10-24-[address] EVEN ADMIRE Payers Date Payer Category Payer Self-pay 2016 Unknown [id number] 2015 Unknown [id number] 1965 Unknown [id number] Progress note 12-10-2023 Note Date & Type Note Facility 12-10-2023 Note [facility] Note Reason for cardiology consult: New patient here to establish care. Ref from Dr. Emerald Jaen for syncope. Chief Complaint: Syncope and dyspnea on exertion HPI: Ahsan Nielsen is a 58 y.o. male without prior cardiac history. Hypertension was diagnosed recently and he was started on lisinopril. He denies history of hyperlipidemia or diabetes mellitus. He is a longtime smoker. He presented to [facility] ED last month for syncope. He [...] or tachyarrhythmias. Dys (more content not included)... [facility] Summary Purpose Family History No Family [...] [1] Hospital Course He ruled out for [place]. Chest x-ray was normal. Stress test was [...] DATE CREATED AUTHOR 12/25/2017 Liz Carly Champagne [facility] DATE CREATED AUTHOR AUTHOR'S ORGANIZ ATION 04/15/2019 [facility] DATE CREATED AUTHOR AUTHOR'S ORGANIZ ATION 12/16/2023 [facility] FOR RECORDS PERTAINING TO PATIENTS [...] BE BASED ON THE PRIMARY CLINICAL RECORDS. [employer] provides no warranty or guarantee of the accuracy or completeness of information in this document.
--- NOTE | 2024-01-07 08:00 | CA_ITS ---
Patient Name: NIELS NIELSEN MR#: [id number] : 1965 Exam Date: 01/07/2024 Ordering Doctor: ELISABETH PEREZ ECHOCARDIOGRAM REPORT PROCEDURE: CA ECHO DOPPLER COMPLETE INDICATIONS: Syncope, hypertension, smoker COMPARISON: None. DESCRIPTION: COMPLETE ECHOCARDIOGRAM Real-time transthoracic echocardiography with 2D, M-mode, spectral and color flow Doppler performed. QUALITY: Technical quality was good. LEFT VENTRICLE: Normal chamber size. Normal left ventricular wall thickness. Normal systolic function. LV EF: Normal left ventricular ejection fraction, (>55%). DIASTOLIC: Normal diastolic function. ATRIAL SEPTUM: Visually appears intact. LEFT ATRIUM: Normal chamber size. RIGHT ATRIUM: Normal chamber size. RIGHT VENTRICLE: Normal chamber size. Normal right ventricular systolic function. TRICUSPID VALVE: Normal mobility and thickness. No stenosis with no regurgitation. Unable to assess right-sided pressures due to lack of measurable tricuspid regurgitation. MITRAL VALVE: Normal mobility and thickness. No evidence of mitral valve stenosis. There is no mitral annular calcification. Trivial mitral regurgitation. AORTIC VALVE: Normal trileaflet appearance. No visible sclerosis. Normal leaflet mobility. No evidence of aortic valve stenosis. No aortic regurgitation. AORTIC ROOT: Normal diameter and appearance. PULMONIC VALVE: Not well visualized. No stenosis. No regurgitation. PERICARDIUM: No evidence of pericardial effusion. IVC: Not well visualized. PLEURA: CONCLUSION: 1. Normal left ventricular size and systolic function. LVEF is 55 to 60%. 2. Normal right ventricular size and systolic function. 3. No significant valvular dysfunction. 4. No pericardial effusion. 5. Unable to assess right-sided pressures due to lack of measurable tricuspid regurgitation. Adult Echocardiography Procedure Report Left Ventricle LVEDD (3.7 - 5.6 cm): 4.39 cm LVESD (2.2 - 4.0 cm): 3.09 cm LVIVS thickness (0.6 - 1.2 cm): 0.76 cm LVPW thickness (0.5 - 1.0 cm): 1.04 cm E - e': 7.42 LVOT Max Gradient: 2.86 mm[Hg] LVOT Area (cm2): 0.84 m/s Peak Velocity (LVOT): 0.84 m/s Mean Velocity (LVOT): 0.56 m/s LVOT Diameter 2.40 cm Left Atrium LA Volume Index (2D A2C): 15.62 ml/m2 Left Atrium Systolic Dimension: 3.60 cm Mitral Valve MV E to A Ratio: 0.96, 0.76 Right Ventricle Aorta AO Root Diam: 3.34 cm Aortic Valve AoV Area (Peak Darrell): 3.50 cm2, 3.50 cm2 AoV Area (VTI): 3.18 cm2, 3.18 cm2 Peak Velocity(Antegrade Flow): 1.09 m/s Peak Gradient(Antegrade Flow): 4.77 mm[Hg] Mean Velocity(Antegrade Flow): 0.78 m/s Mean Gradient(Antegrade Flow): 2.74 mm[Hg] Velocity Time Integral: 28.67 cm Tricuspid Valve Pulmonic Valve Peak Gradient: 3.98 mm[Hg], 1.98 mm[Hg] Right Atrium Right Atrium Systolic Pressure: 32.03 ml, 32.03 ml Dictated by: Pool Landaverde M.D. on 01/09/2024 at 08:53 Approved by: Pool Landaverde M.D. on 01/09/2024 at 09:00
== END 2024-01-07 07:49 | disposition home or self-care (01) ==
LOC: CARD 07:48
PROVIDERS: PCP Nurse Practitioner; Visit Provider Internal Medicine Cardiovascular Disease
DX: R55 Syncope and collapse (principal)
CPT/HCPCS: 93306

== ENCOUNTER 2024-02-18 19:56 | Outpatient (OUT) | payer OTHER, SELFPAY ==
--- OUTSIDE RECORDS SUMMARY | 2024-02-18 19:58 | XMS_ITS | CCD ---
Author Organization [facility] Care Team Providers Care Electrical Intern Name Role Phone ANABEL LONG Unavailable Unavailable LONGANABEL QUIÑONES Unavailable Unavailable LONG, ANABEL Abdullahi Unavailable Unavailable ANABEL LONG Unavailable Unavailable TAMMY CONTRERAS Unavailable Unavailable GEE JONES Admitting Unavailable GEE JONES Attending Unavailable DEION MONK Consulting Unavaila ble BV, Physician - Emergency Consulting Unazachary Valentin, Kajal Consulting Unavailable ELISABETH PEREZ Attending Unavailable ELISABETH PEREZ Attending Unavailable JAMAICA BORGES Attending Unavailable JAMAICA BORGES Referring Unavailable MARIPOSA BANUELOS Attending Unavailable MARIPOSA BANUELOS Referring Unavailable JAMAICA BORGES Attending Unavailable DO Jamaica Borges Attending Provider [phone] PRIMO Jean Primary Care Provider [phone] Jamaica Borges Admitting Unavailab Jamaica Pedraza Attending UnavailEmerald Strange Primary Care Unavailable Allergies Allergy Classification Reported Allergen(s) Allergy Type Date of Onset Reaction(s) Facility (1 source) No Known Medication Allergies; Translations: [No Known Medication Allergies] Propensity to adverse reactions to drug (disorder) [facility] Repository Problems Problem Classification Problem Date Documented Da te Episodic/Chronic Coma; stupor; and brain damage (1 source) Unspecified coma; Translations: [Unspecified coma] Onset: 02-06-2024 Episodic Essential hypertension (2 sources) Essential (primary) hypertension; Translations: [Essential (primary) hypertension] Onset: 01-19-2024 Chronic Nausea and vomiting (1 source) Nausea [...] Test Name Value Interpretation Reference Range Facility MR head/brain wo/w conon MR head/brain wo/w con [facility] Main [place] [address] [place] [address] MRI Report Signed Patient: Ahsan Rivas MR#: [id number] : 1965 Acct:[id number] Age/Sex: 58 / M ADM Date: 02/06/24 Loc: MR Room: Type: [facility] Attending Dr: Jamaica Borges DO Copies to: Jamaica Borges DO Ordering Provider: Jamaica Borges DO Date of Service: 02/06/24 MR/MR head/brain wo/w con: R40.20 MRI of the brain with and without IV contrast. Reason for exam: Syncopal episodes. COMPARISON: None. TECHNIQUE: Multisequence, multiplanar imaging of the brain was performed before and after the use of IV contrast. FINDINGS: No evidence of restriction diffusion is an diffusion-weighted imaging. A punctate microhemorrhages seen involving the left parietal lobe on the GRE imaging. Cortical atrophy with mild chronic microvascular ischemic changes which appears to extend into the kylee. Midbrain, medulla and cerebellum all appear grossly unremarkable. Intraorbital contents appear unremarkable. Visualized paranasal sinuses are clear. Postcontrast imaging demonstrates no abnormal enhancement or mass. MR/MR head/brain wo/w con IMPRESSION: No acute intracranial abnormality. Cortical atrophy with mild chronic microvascular ischemic changes. Impression dictated by: Shiva Rey Jr., D.O.02/06/2024 7:24 PM Dictation Location: [place] [address] Transcribed By: [facility] 02/06/241923 Dictated By: Shiva Rey Jr, DO 02/06/241920 Signed By: 02/06/241923 [facility] Office Visiton 01-19-2024 Follow-up visit [id number] Javier Rivas A 1965 M Date Provider Department Center 01/19/2024 ELISABETH BOOTH Family History Problem Relation Age of Onset Cancer Mother COPD Father Family Status - Relation Status Age at Mother Father Level of Service:[address] [place] OFFICE/OUTPATIENT ESTABLISHED MOD MDM 30 MIN [facility] 36on 01-15-2024 36 Regarding echo resul t from 01/07/2024: MD Mariposa Shetty MA Please notify patient his echo appears to be normal. Continue current management. Thank you Attempted to call patient's home #. The automated system said this line was currently suspended. I then called the cell # twice and it was busy. Normal [facility] 36on 12-16-2023 36 Regarding lab result s from 12/12/2023: MD Mariposa Shetty MA Notify patient that his lipids shows mildly elevated LDL cholesterol, follow low-fat diet. His TSH and a.m. cortisol level are normal Spoke with patient's and made her aware. Normal [facility] Orders Onlyon 12-11-2023 Orders Only [id number] Javier Rivas A 1965 M Date Provider Department Center 12/11/2023 KAITLIN ROY Family History Problem Relation Age of Onset Cancer Mother COPD Father Family Status - Relation Status Age at Mother Father Normal [facility] Office Visiton 12-10-2023 Follow-up visit [id number] Javier Rivas A 1965 M Date Provider Department Center 12/10/2023 ELISABETH BOOTH Family History Problem Relation Age of Onset Cancer Mother COPD Father Family Status - Relation Status Age at Mother Father Level of Service:74808 [place] OFFICE/OUTPATIENT NEW MODERATE MDM 45 MINUTES [facility] Family Medicine Office/Clini c Noteon 11-27-2018 [...] Guille Khan PA-C 11/27/18 15:46 EDT Normal [facility] .eGFRon 11-20-2018 eGFR AA >60 Normal >=60 [facility] Comment on above: Result Comment: Resu lt = 0-14.9 mL/min/1.73 m2 Kidney failure or Dialysis Result = 15-29 mL/min/1.73 m2 Severe decrease in GFR Result = 30-59 mL/min/1.73 m2 Moderate decrease in GFR Result >= 60 mL/min/1.73 m2 Normal or increased GFR Performed By: #### E GFR #### [address] [address] eGFR Non-AA >60 Normal >=60 [facility] Comment on above: Result Comment: Resu [...] dosing. Performed By: #### E GFR #### [address] [address] AMI 2Hron 11-20-2018 2 Hour Myoglobin 22.0 ng/mL Normal 17.4-105.7 [facility] Comment on above: Performed By: #### C BC #### [address] [address] Troponin I.cardiac [Mass/Vol] ng/mL Normal 0.00-0.03 [facility] Comment on above: Result Comment: An i ncreased Troponin-I value, in the absence of myocardial ischemia, may indicate other etiologies of cardiac damage. Performed By: #### C BC #### [address] [address] AMI Initon 11-20-2018 Initial Myoglobin 29.0 ng/mL Normal 17.4-105.7 [facility] Comment on above: Performed By: #### A MI1 #### [address] [address] Troponin I.cardiac [Mass/Vol] ng/mL Normal 0.00-0.03 [facility] Comment on above: Result Comment: An i ncreased Troponin-I value, in the absence of myocardial ischemia, may indicate other etiologies of cardiac damage. Performed By: #### A MI1 #### [address] [address] QPI0Rlpe 11-20-2018 6 Hour Myoglobin 27.0 ng/mL Normal 17.4-105.7 [facility] Comment on above: Performed By: #### C BC #### [address] [address] Troponin I.cardiac [Mass/Vol] ng/mL Normal 0.00-0.03 [facility] Comment on above: Result Comment: An i ncreased Troponin-I value, in the absence of myocardial ischemia, may indicate other etiologies of cardiac damage. Performed By: #### C BC #### [address] [address] Basic Metabolic Profileon Anion gap [Moles/Vol] 14 mmol/L Normal 7-17 [facility] Comment on above: Performed By: #### C [id number] #### [address] [address] Calcium [Mass/Vol] 8.7 mg/dL Normal 8.5-10.3 [facility] Comment on above: Performed By: #### C [id number] #### [address] [address] Chloride [Moles/Vol] 105 mmol/L Normal 98-110 [facility] Comment on above: Performed By: #### C [id number] #### [address] [address] CO2 [Moles/Vol] 22 mmol/L Normal 22-32 [facility] Comment on above: Performed By: #### C [id number] #### [address] [address] Creatinine [Mass/Vol] 0.70 mg/dL Normal 0.61-1.24 [facility] Comment on above: Performed By: #### C [id number] #### [address] [address] Glucose [Mass/Vol] 100 mg/dL Normal 74-118 [facility] Comment on above: Performed By: #### C [id number] #### [address] [address] Potassium [Moles/Vol] 4.4 mmol/L Normal 3.4-4.8 [facility] Comment on above: Performed By: #### C [id number] #### [address] [address] Sodium [Moles/Vol] 137 mmol/L Normal 133-142 [facility] Comment on above: Performed By: #### C [id number] #### [address] [address] Urea nitrogen [Mass/Vol] 13 mg/dL Normal 8-26 [facility] Comment on above: Performed By: #### C [id number] #### [address] [address] Urea nitrogen/Creatinine [Mass ratio] 18.6 mg/mg Normal 10.0-20.0 [facility] Comment on above: Performed By: #### C [id number] #### [address] [address] CBC w/ Diffon 11-20-2018 Erythrocyte distribution width (RBC) [Ratio] 13.0 % Normal 11.6-14.8 [facility] Comment on above: Performed By: #### C BC #### [address] [address] Hematocrit (Bld) [Volume fraction] 46.3 % Normal 41.0-53.0 [facility] Comment on above: Performed By: #### C BC #### [address] [address] Hemoglobin (Bld) [Mass/Vol] 15.8 g/dL Normal 13.5-17.5 [facility] Comment on above: Performed By: #### C BC #### [address] [address] MCH (RBC) [Entitic mass] 32.5 pg Normal 27.0-35.0 [facility] Comment on above: Performed By: #### C BC #### [address] [address] MCHC (RBC) [Mass/Vol] 34.1 % Normal 31.0-37.0 [facility] Comment on above: Performed By: #### C BC #### [address] [address] MCV (RBC) [Entitic vol] 95.3 fL Normal 80.0-100.0 [facility] Comment on above: Performed By: #### C BC #### [address] [address] Platelet mean volume (Bld) [Entitic vol] 8.6 fL Normal 6.7-10.6 [facility] Comment on above: Performed By: #### C BC #### [address] [address] Platelets (Bld) [#/Vol] 202 x10*3/mcL Normal 150-350 [facility] Comment on above: Performed By: #### C BC #### [address] [address] RBC (Bld) [#/Vol] 4.86 x10*6/mcL Normal 4.30-5.80 [facility] Comment on above: Performed By: #### C BC #### [address] [address] WBC (Bld) [#/Vol] 12.8 x10*3/mcL High 4.5-11.0 [facility] Comment on above: Performed By: #### C BC #### [address] [address] Cardiology Consultationon Cardiology Consultation Chief Complaint dyspnea [...] qualifying data available. Electronically signed by ___ Deion Monk MD 11/20/18 16:18 EDT Normal [facility] Photo Stylist Progress Noteon 11-20-2018 Photo Stylist Progress Note CM met with patient before huddles today. He is new to the floor from ER for chest pain. he is asking to go home since unable to do a stress test today. CM will update RN, educated patient on remaining in the hospital while labs are trending for [place]. He does have insurance, independent with adl's, [...] Recieved a call back from Dr. quintana certified legal secretary specialist. Upon discussion, we reviewed patient listed as [...] his job established. Refuses to speak to director of financial planning when CM offered. Offered self pay education pamphlet as well, pt refuses stating he will get it figured out. CM put financial assistance program in chart for Discharge. Electronically signed by ___ Leidy Chapin 11/20/18 14:32 EDT Normal [facility] D-Dimeron 11-20-2018 Fibrin D-dimer FEU IA (Bld) [Mass/Vol] 0.34 mg/L feu Normal 0.00-0.49 [facility] Comment on above: Result Comment: Resu [...] assay. Performed By: #### D TRACY #### [facility] [address] [place] [address] Diff Autoon 11-20-2018 Baso Absolute 0.1 x10*3/mcL Normal 0.0-0.2 [facility] Comment on above: Performed By: #### . Automated Diff #### [address] [address] Basophils/100 WBC (Bld) 0.8 % Normal 0.0-1.2 [facility] Comment on above: Performed By: #### . Automated Diff #### [address] [address] Eos Absolute 0.2 x10*3/mcL Normal 0.0-0.4 [facility] Comment on above: Performed By: #### . Automated Diff #### [address] [address] Eosinophils/100 WBC (Bld) 1.9 % Normal 0.0-6.1 [facility] Comment on above: Performed By: #### . Automated Diff #### [address] [address] Lymphocytes (Bld) [#/Vol] 3.5 x10*3/mcL Normal 1.0-4.8 [facility] Comment on above: Performed By: #### . Automated Diff #### [address] [address] Lymphocytes/100 WBC (Bld) 27.3 % Normal 27.2-40.8 [facility] Comment on above: Performed By: #### . Automated Diff #### [address] [address] Lajas Absolute 0.9 x10*3/mcL Normal 0.3-1.1 [facility] Comment on above: Performed By: #### . Automated Diff #### [address] [address] Monocytes/100 WBC (Bld) 6.9 % Normal 4.7-13.9 [facility] Comment on above: Performed By: #### . Automated Diff #### [address] [address] Neutro Absolute 8.1 x10*3/mcL High 1.8-7.7 [facility] Comment on above: Performed By: #### . Automated Diff #### [address] [address] Neutro Auto 63.1 % Normal 47.2-70.8 [facility] Comment on above: Performed By: #### . Automated Diff #### [facility] [address] [place] [address] ED Clinical Summaryon 2018 ED Clinical Summary (Inserted Image. Ale ble to display) [facility] [address] [place] [address] ED Clinical Summary Person Information Name: Ahsan Rivas/[facility] Age: 53 Years : 1965 Sex: Male PCP: Marital Status: Single Phone: Race: White Ethnicity: Not or Language: Turkish Visit Reason: Dyspnea; Chest pain - Cardiac Acuity: 2 Enc Type: Observation Med Service: Emergency Medicine Arrival: 11/20/2018 07:05:00 Discharge: LOS: 000 01:54 Checkin: 11/20/2018 07:05:00 Checkout: 11/20/2018 08:59:41 Dispo Type: Admitted to ICU Address: [address] [place], [place] [id number] Provider Notes: History of Present Illness Patient [...] range between ( 27.2 and 40.8 ) Lajas Auto: 6.9 % -- Normal range between [...] range between ( 41.0 and 53.0 ) Lajas Absolute: 0.9 x10 MCH: 32.5 pg -- [...] Home Medications Care Team Members: Attending Physician: Kaycee BEDOLLA, Gee Muniz Consulting Physician: Referring Physician: Provider Role Assigned Unassigned Ramy Dooley DO ED Provider 11/20/2018 07:07:18 Follow up: Discharge Orders: Place in Observation 11/20/18 8:37:00 EDT, Coronary Care Unit, 11/20/18 8:37:00 EDT, Kaycee BEDOLLA, Kaycee Sawyer MD, Gee Muniz Request for Admit 11/20/18 8:34:00 EDT, 11/20/18 8:34:00 EDT, Coronary Care Unit, Jen Bey DO Patient Education Information: [facility] Poison Help line: . [facility] Hotline: [place] Tobacco Quit Line: [place], [place]) [address]: [phone] [facility] ([place], [place]) [address]: [phone] [facility] [address] [place], [place]: [phone] Normal [facility] ED Note-Nursingon 11-20-2018 ED Note-Nursing Grader Marker obtained admission room - CCU charge nurse requests 10 minutes before transport Electronically signed by ___ Rachel Sandra 11/20/18 08:47 EDT Normal [facility] ED Note-Physicianon 11-21-19 19 ED Note-Physician [...] and in the presence of Dr. Dooley. Scribporsha Attestation: The information in this document, created by the certified medical coding specialist for me, accurately reflects the [...] from someone other than the patient: Reviewed [facility] EMR to see if recent visits or hospitalizations. Review and summarized past medical records if pertinent and available in [employer]ner: Data Interpretation: I have have reviewed returned data from lab. Clinically important interpretation is: CBC is unremarkable Basic Metabolic panel with normal renal function, no significant abnormality Coags normal Initial cardiac enzymes negative d-d-tracy neg EKG: EKG time: 0707 Rhythm:[normal sinus] Rate:88 [place]:[normal] QRS:81 QT interval:399 ST/T wave changes: No [...] 07:12 63.1 Lymph Auto 11/20/18 07:12 27.3 Lajas Auto 11/20/18 07:12 6.9 Eos Auto 11/20/18 07:12 1.9 Basophil Auto 11/20/18 07:12 0.8 Neutro Absolute 11/20/18 07:12 8.1 High Lymph Absolute 11/20/18 07:12 3.5 Lajas Absolute 11/20/18 07:12 0.9 Eos Absolute 11/20/18 [...] Ramy Dooley DO 11/20/2018 08:35 EDT Normal [facility] History and Physicalon 11-20 History and [...] 95.3 (11/20/18) Mean Platelet Volume: 8.6 (11/20/18) Lajas Absolute: 0.9 (11/20/18) Lajas Auto: 6.9 (11/20/18) Neutro Absolute: 8.1 (11/20/18) Neutro Auto: 63.1 (11/20/18) PT: 9.7 (11/20/18) PTT: 24.2 (11/20/18) RBC: 4.86 (11/20/18) RDW: 13.0 (11/20/18) Assessment/Plan 1. Chest pain Rule out HI Stress test Cardiology consult 2. Dyspnea Repeat [...] Gee Jones MD 11/20/18 10:06 EDT Normal [facility] Inpatient Clinical Summaryon 11-20-2018 Inpatient Clinical Summary [address] [address] Clinical Summary Person Information Name: Ahsan Rivas Age: 53 Years : 1965 Sex: Male PCP: Marital Status: Single Phone: PCP: Race: White Ethnicity: Not or Language: Turkish Visit Id: Visit Reason: Dyspnea; Chest pain - Cardiac Speciality: Acuity: Enc Type: Observation Med Service: Emergency Medicine Arrival: 11/20/2018 07:05:00 Discharge: Dispo Type: Admitted to ICU Address: [address] [place] [address] Diagnosis: 1:Chest pain; 2:Dyspnea; 3:Palpitations; 4:Hypertension Discharged [...] range between ( 27.2 and 40.8 ) Lajas Auto: 6.9 % -- Normal range between [...] range between ( 41.0 and 53.0 ) [place]ajas Absolute: 0.9 x10 MCH: 32.5 pg -- [...] Follow up: With: Address: When: Guille Khan [address] [place] [address], [address] [place] [address] [phone] Business (1) 11/27/2018 15:00:00 Comments: Appointment Scheduled Type Location [facility] New Patient Visit 30 [facility] 11/27/2018 15:00:00 11/27/2018 15:30:00 Confirmed Normal [facility] NM CARDIOLITE W/EXER STRESSo n 11-20-2018 [...] peak heart rate and blood pressure was [address] mm Hg/min. Stress ECG: The stress ECG [...] Electronically Signed in Other Vendor System) Normal [facility] PTon 11-20-2018 INR Coag (PPP) [Relative time] 0.9 {INR} Normal <=3.5 [facility] Comment on above: Result Comment: INR has no normal range. INR Therapeutic range is: 2.0-3.0 (AF, CVA, TIAs, DVT prophylaxis, acute DVT) 2.5-3.5 ([facility] heart valves, recurrent thrombosis/emboli) Performed By: #### P TINR #### [place] [id number] PT Coag (PPP) [Time] 9.7 s Normal 9.2-11.7 [facility] Comment on above: Performed By: #### P TINR #### [address] [address] PTTon 11-20-2018 aPTT Coag (Bld) [Time] 24.2 s Normal 20.6-27.7 [facility] Comment on above: Performed By: #### P TT #### [address] [address] XR Chest 1 Viewon 11-20-2018 XR Chest [...] Electronically Signed in Other Vendor System) Normal [facility] XR Chest 2 Viewson 9 XR [...] Electronically Signed in Other Vendor System) Normal [facility] Cult,Urineon 10-25-2017 Cult,Urine Specimen Description .CLEAN CATCH URINE Performed at [address] [place] [id number] Special Requests NOT REPORTEDCulture [place] [address] Report Status FINAL 10/25/2017 Normal [facility] Comment on above: Performed By: #### U RC ####[address] [phone] [place] [address] CBC with Diffon 10-24-2017 Abs. Basophil 0.05 k/uL Normal 0.00-0.20 [facility] Comment on above: Performed By: #### C TAMARA FLORES, LIP ####[address] [place] [id number] Abs.Neutrophil (Seg) 5.37 k/uL Normal 1.50-8.10 [facility] Comment on above: Performed By: #### C SANDRA, TAMARA, LIP ####[address] [place] [address] Basophils/100 WBC Auto (Bld) 1 % Normal 0-2 [facility] Comment on above: Performed By: #### C DP, CP, LIP ####[address] [place] [address] Eosinophils 0.57 10*3/uL High 0.00-0.44 [facility] Comment on above: Performed By: #### C DP, CP, LIP ####[address] , [facility]83 Eosinophils/100 leukocytes 7 % High 1-4 [facility] Comment on above: Performed By: #### C DP, CP, LIP ####[address] , [place] [address] Erythrocyte distribution width Auto Ratio (RBC) 13.4 % Normal 11.8-14.4 [facility] Comment on above: Performed By: #### C DP, CP, LIP ####[address] , [facility]83 Erythrocytes (RBC) 0.0 per 100 WBC Normal 0.0 [facility] Comment on above: Performed By: #### C DP, CP, LIP ####[address] , [facility]83 Erythrocytes (RBC) 5.69 10*6/uL Normal 4.21-5.77 [facility] Comment on above: Performed By: #### C DP, CP, LIP ####[address] , [facility]83 Granulocytes/100 WBC (Bld) 0.04 k/uL Normal 0.00-0.30 [facility] Comment on above: Result Comment: Perf ormed at [address] [place] [address] Performed By: #### C DP, CP, LIP ####[address] [place] [address] Hematocrit (HCT) 51.0 % High 40.7-50.3 [facility] Comment on above: Performed By: #### C DP, CP, LIP ####[address] , [place] [address] Hemoglobin mass conc (Bld) 18.0 g/dL High 13.0-17.0 [facility] Comment on above: Performed By: #### C DP, CP, LIP ####[address] [place] [address] Immature granulocytes #/vol (Bld) 1 % High 0 [facility] Comment on above: Performed By: #### C DP, CP, LIP ####[address] [place] [address] Lymphocytes 1.35 10*3/uL Normal 1.10-3.70 [facility] Comment on above: Performed By: #### C DP, CP, LIP ####[address] , [facility]83 Lymphocytes/100 leukocytes 15 % Low 24-43 [facility] Comment on above: Performed By: #### C DP, CP, LIP ####[address] , [facility]83 MCH 31.6 pg Normal 25.2-33.5 [facility] Comment on above: Performed By: #### C DP, CP, LIP ####[address] [place] [address] MCHC mass conc (RBC) 35.3 g/dL High 28.4-34.8 [facility] Comment on above: Performed By: #### C DP, CP, LIP ####[address] , [facility]83 MCV 89.6 fL Normal 82.6-102.9 [facility] Comment on above: Performed By: #### C DP, CP, LIP ####[address] [place] [address] Monocytes 1.36 10*3/uL High 0.10-1.20 [facility] Comment on above: Performed By: #### C DP, CP, LIP ####[address] [place] [address] Monocytes/100 leukocytes 16 % High 3-12 [facility] Comment on above: Performed By: #### C DP, CP, LIP ####[address] [place] [address] Neutrophil (Seg) 61 % Normal 36-65 [facility] Comment on above: Performed By: #### C DP, CP, LIP ####[address] [place] [address] Platelet mean volume (PMV) 10.5 fL Normal 8.1-13.5 [facility] Comment on above: Performed By: #### C DP, CP, LIP ####[address] [place] [address] Platelets 186 10*3/uL Normal 138-453 [facility] Comment on above: Performed By: #### C DP, CP, LIP ####[address] [place] [address] WBC (Leukocytes) 8.7 10*3/uL Normal 3.5-11.3 [facility] Comment on above: Performed By: #### C DP, CP, LIP ####[address] [place] [address] Auto Diff Performed NOT REPORTED Normal [facility] Comment on above: Performed By: #### C DP, CP, LIP ####[address] , [facility]83 Erythrocyte morphology NOT REPORTED Normal [facility] Comment on above: Performed By: #### C DP, CP, LIP ####[address] [place] [address] Platelets NOT REPORTED Normal [facility] Comment on above: Performed By: #### C DP, CP, LIP ####[address] [place] [address] WBC Morphology NOT REPORTED Normal [facility] Comment on above: Performed By: #### C DP, CP, LIP ####[address] [place] [address] Comp Metabolic Profon 2017 (cont.) Normal [facility] Comment on above: Result Comment: Aver age GFR for 50-59 years old: 93 mL/min/1.73sq mChronic Kidney Disease: <60 mL/min/1.73sq mKidney failure: <15 mL/min/1.73sq meGFR calculated using average adult body mass. Additional eGFR calculator available at:http://www.[employer].DeviceFidelity/multiple_crcl_2012.htm Performed By: #### C DP, CP, LIP ####[address] [place] [address] Alanine aminotransferase (ALT) 18 U/L Normal 5-41 [facility] Comment on above: Performed By: #### C DP, CP, LIP ####[address] [place] [address] Albumin 4.2 g/dL Normal 3.5-5.2 [facility] Comment on above: Performed By: #### C DP, CP, LIP ####[address] [place] [address] Albumin/Globulin Ratio 1.2 {ratio} Normal 1.0-2.5 [facility] Comment on above: Performed By: #### C DP, CP, LIP ####[address] [place] [address] Alkaline Phos 74 U/L Normal 40-129 [facility] Comment on above: Performed By: #### C DP, CP, LIP ####[address] [place] [address] Anion gap 16 mmol/L Normal 9-17 [facility] Comment on above: Performed By: #### C DP, CP, LIP ####[address] [place] [address] Aspartate aminotransferase (AST) 24 U/L Normal <40 [facility] Comment on above: Performed By: #### C DP, CP, LIP ####[address] [place] [address] Bilirubin Ql (U) 0.64 mg/dL Normal 0.3-1.2 [facility] Comment on above: Performed By: #### C DP, CP, LIP ####[address] [place] [address] BUN/CRE Ratio 15 Normal 9-20 [facility] Comment on above: Performed By: #### C DP, CP, LIP ####[address] [place] [address] Calcium 9.2 mg/dL Normal 8.6-10.4 [facility] Comment on above: Performed By: #### C DP, CP, LIP ####[address] [place] [address] Chloride 91 mmol/L Low 98-107 [facility] Comment on above: Performed By: #### C DP, CP, LIP ####[address] [place] [address] CO2 23 mmol/L Normal 20-31 [facility] Comment on above: Performed By: #### C DP, CP, LIP ####[address] [place] [address] Creatinine 0.94 mg/dL Normal 0.70-1.20 [facility] Comment on above: Performed By: #### C DP, CP, LIP ####[address] [place] [address] eGFR (non-black) mL/min/{1.73_m2} Normal >60 [facility] Comment on above: Performed By: #### C DP, CP, LIP ####[address] [place] [address] Glucose mass conc 113 mg/dL High 70-99 [facility] Comment on above: Performed By: #### C DP, CP, LIP ####[address] [place] [address] Potassium molar conc 4.8 mmol/L Normal 3.7-5.3 [facility] Comment on above: Performed By: #### C DP, CP, LIP ####[address] [place] [address] Protein 7.6 g/dL Normal 6.4-8.3 [facility] Comment on above: Performed By: #### C DP, CP, LIP ####[address] [place] [address] Sodium 130 mmol/L Low 135-144 [facility] Comment on above: Performed By: #### C DP, CP, LIP ####[address] [place] [address] Staging: Normal [facility] Comment on above: Result Comment: Stag e 1: Some kidney damage normal GFRStage 2: Mild kidney damage GFR 60-89Stage 3: Moderate kidney damage GFR 30-59Stage 4: Severe kidney damage GFR 15-29Stage 5: Severe kidney damage GFR <15ESRD - chronic treatment by dialysis or transplantPerformed at [address] [place] [address] Performed By: #### C DP, CP, LIP ####[address] [place] [address] Urea nitrogen 14 mg/dL Normal 6-20 [facility] Comment on above: Performed By: #### C DP, CP, LIP ####[address] [place] [address] Lipaseon 10-24-2017 Lipase 27 U/L Normal 13-60 [facility] Comment on above: Result Comment: Perf ormed at [address] [place] [address] Performed By: #### C DP, CP, LIP ####[address] [place] [address] Urinalysis w/ Microon 2017 ----- Normal [facility] Comment on above: Performed By: #### U AMIC ####[address] [place] [address] Acetaminophen mass conc 1+ Abnormal NEG [facility] Comment on above: Performed By: #### U AMIC ####[address] [place] [address] Bilirubin (direct) Negative Normal NEG [facility] Comment on above: Performed By: #### U AMIC ####[address] [place] [address] Hemoglobin mass conc (Bld) Negative Normal NEG [facility] Comment on above: Performed By: #### U AMIC ####[address] [place] [address] Nitrite,Ur Negative Normal NEG [facility] Comment on above: Performed By: #### U AMIC ####[address] [place] [address] Turbidity CLEAR Normal CLEAR [facility] Comment on above: Performed By: #### U AMIC ####[address] [place] [address] Urine WBC's 0 TO 2 Normal 0-5 [facility] Comment on above: Performed By: #### U AMIC ####[address] [place] [address] Urine, color YELLOW Normal YEL [facility] Comment on above: Performed By: #### U AMIC ####[address] [place] [address] Urine, epithelial cells in sediment 0 TO 2 Normal 0-5 [facility] Comment on above: Result Comment: Perf ormed at [address] [place] [address] Performed By: #### U AMIC ####[address] [place] [address] Urine, erythrocytes 0 TO 2 Normal 0-2 [facility] Comment on above: Performed By: #### U AMIC ####[address] [place] [address] Urine, glucose presence Negative Normal NEG [facility] Comment on above: Performed By: #### U AMIC ####[address] [place] [address] Urine, leukocyte esterase presence Negative Normal NEG [facility] Comment on above: Performed By: #### U AMIC ####[address] [place] [address] Urine, pH 6.5 [pH] Normal 5.0-9.0 [facility] Comment on above: Performed By: #### U AMIC ####[address] [place] [address] Urine, protein presence Negative Normal NEG [facility] Comment on above: Performed By: #### U AMIC ####[address] [place] [address] Urine, specific gravity <1.005 Low 1.010-1.020 [facility] Comment on above: Performed By: #### U AMIC ####[address] [place] [address] Urobilinogen,Ur Normal Normal NORM [facility] Comment on above: Performed By: #### U AMIC ####[address] [place] [address] Comment NOT REPORTED Normal [facility] Comment on above: Performed By: #### U AMIC ####[address] [place] [address] Epithelial, Renal NOT REPORTED Normal 0 [facility] Comment on above: Performed By: #### U AMIC ####[address] [place] [address] Mucus Strands NOT REPORTED Normal NONE [facility] Comment on above: Performed By: #### U AMIC ####[address] [place] [address] Other Observations NOT REPORTED Normal NREQ [facility] Comment on above: Performed By: #### U AMIC ####[address] [place] [address] Trichomonas NOT REPORTED Normal NONE [facility] Comment on above: Performed By: #### U AMIC ####[address] [place] [address] Urine, amorphous sediment presence in sediment NOT REPORTED Normal NONE [facility] Comment on above: Performed By: #### U AMIC ####[address] [place] [address] Urine, bacteria in sediment NOT REPORTED Normal NONE [facility] Comment on above: Performed By: #### U AMIC ####[facility] [place] [address] Urine, casts in sediment NOT REPORTED Normal [facility] Comment on above: Performed By: #### U AMIC ####[address] [place] [address] Urine, crystals in sediment NOT REPORTED Normal NONE [facility] Comment on above: Performed By: #### U AMIC ####[facility] [place] [address] Urine, yeast presence in sediment NOT REPORTED Normal NONE [facility] Comment on above: Performed By: #### U AMIC ####[address] , [place] [address] Discharge Summaryon 03-11-20 17 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 [facility] Encounters Encounter Date Encounter Type Care Provider Facility Start: 02-06-2024 End: 02-06-2024 Patient encounter procedure PRIMO Jean Work Phone: [facility] Work Phone: Start: 02-06-2024 End: 02-06-2024 ambulatory PRIMO Jean Work Phone: [facility] Work Phone: Start: 02-03-2024 End: 02-03-2024 ambulatory JAMAICA BORGES Not Available Start: 02-02-2024 End: 02-02-2024 ambulatory MARIPOSA BANUELOS Not Available Start: 01-20-2024 End: 01-20-2024 ambulatory MARIPOSA BANUELOS Not Available Start: 01-19-2024 End: 01-19-2024 ambulatory [facility] Start: 12-24-2023 End: 12-24-2023 ambulatory JAMAICA BORGES Not Available Start: 12-23-2023 End: 12-23-2023 ambulatory JAMAICA MONTESETT Not Available Start: 12-15-2023 Non-patient / Non-visit PRIMO Jean Work Phone: [facility] Work Phone: Start: 12-10-2023 End: 12-10-2023 ambulatory [facility] Start: 11-20-2018 End: 11-20-2018 Patient encounter procedure GEE JONES Facility:[facility] Start: 10-24-2017 End: 10-24-2017 Emergency department patient visit ANABEL Abdullahi [facility] Start: 12-27-2016 End: 12-28-2016 [facility] Date Procedure Procedure Detail Performing Clinician Start: 02-06-2024 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 Emerald Jean Work Phone: Start: 10-24-2017 NURSING COMMUNICATION S RAINA LONG Start: 10-24-2017 URINALYSIS WITH MICROSCOPIC ANABEL LONG Start: 10-24-2017 URINE CULTURE ANABEL ANU LACY Start: 10-24-2017 CBC WITH AUTO DIFFERENTIAL ANABEL LONG Start: 10-24-2017 COMPREHENSIVE METABO LIC PANEL ANABEL LONG Start: 10-24-2017 LIPASE ANABEL COURTNEY DELGADILLO Start: 10-24-[address] [facility] [place] Payers Date Payer Category Payer Self-pay 2016 Unknown [id number] 2015 Unknown [id number] 1965 Unknown [id number] [id number] [id number] 1965 Unknown [id number] 2.16.84 [id number] 1965 Unknown [id number] 2.16.84 [id number] 1965 Unknown [id number] 2.16.84 [id number] 1964 Unknown [id number] 2.16.84 [id number] 1965 Unknown [id number] 2.16.84 [id number] Unknown [id number] 2.16.8 [id number] Social History Date Type Detail Facility Tobacco smoking stat [facility] Unknown if ever smoked [facility] Work Phone: Start: 1965 Sex Assigned At Male [facility] Progress note 01-19-2024 Note Date & Type Note Facility 01-19-2024 Note [facility] Note Reason for cardiology visit: Patient here for follow up echo and 30 day event monitor. He is scheduled for sleep study on 02/18/2024. Chief Complaint: No complaints HPI: Ahsan Rivas is a 58 y.o. male who is here today for follow-up visit. He denies any recurrent dizziness or syncope. His shortness of breath is better. He brought with him his blood pressure log and it still on the high side. He has been cutting metoprolol dose in half to 25mg daily because he wasn't feeling right weak and sick on 50mg daily. Denies chest pain, palpitations, and recurrent syncope. Feels better on lower dose of metoprolol. Visit 12/10/2023 Ahsan Rivas is a 58 y.o. male without prior cardiac history. Hypertension was diagnosed recently and he was started on lisinopril. He denies history of hyperlipidemia or diabetes mellitus. He is a longtime smoker. He presented to [facility] ED last month for syncope. He [...] denies family history of coronary artery disease Review of Systems All other systems reviewed and are negative except for the positive findings noted above in the history. Past Medical History He has a past [...] not use drugs. Family History Family History Family History Problem Relation Name [...] appropriate mood, affect, and judgement. Labs: Labs 12/12/2023 Triglyceride 105, cholesterol 181, HDL 48, LDL 113, TSH 2.55 A.m. cortisol level 12.5 normal Labs 12/04/2023 AST 56, ALT 83, alk [...] 67 bpm, normal EKG EKG 06/25/2016 Normal si (more content not included)... [facility] Progress note 12-10-2023 Note Date & Type Note Facility 12-10-2023 Note [facility] Note Reason for cardiology consult: New patient here to establish care. Ref from Dr. Emerald Jean for syncope. Chief Complaint: Syncope and dyspnea on exertion HPI: Ahsan Rivas is a 58 y.o. male without prior cardiac history. Hypertension was diagnosed recently and he was started on lisinopril. He denies history of hyperlipidemia or diabetes mellitus. He is a longtime smoker. He presented to [facility] ED last month for syncope. He [...] or tachyarrhythmias. Dys (more content not included)... [facility] Evaluation note Note Date & Type Note Facility Evaluation note No assessment information availa [facility] Work Phone: Summary Purpose Family History No Family History Records FoundNo Family History Records FoundNo Family History Records FoundNo Family History Records FoundNo Family History Records Found Advance Directives No Advanced Directives Records Found Advance Directive Response Recorded Date/ Time Advance Directives No December 14 1:10pm Hospital Course Note Admission Information 53-yea r-old [...] [1] Hospital Course He ruled out for HI. Chest x-ray was normal. Stress test was unremarkable. He was seen by cardiology. He had reproducible chest pain. His breathing is much improved. He was examining well tolerating regular diet. He wanted to be discharged. He was discharged to home in stable condition. Arrangements were made for outpatient follow-up. [facility] (more content not included)... Chief Complaint and Reason for Visit Chief Complaint R40.20 I95.1 Additional Source Comments (unrecognized sect ion and content) No Status Records FoundNo Status Records FoundNo Status Records FoundNo Status Records FoundNo Status Records Found INFORMATION SOURCE (unrecogn ized section and content) DATE CREATED AUTHOR 12/25/2017 [facility] [place] [facility] DATE CREATED AUTHOR AUTHOR'S ORGANIZ ATION 04/15/2019 [facility] DATE CREATED AUTHOR AUTHOR'S ORGANIZ ATION 01/22/2024 [facility] DATE CREATED AUTHOR AUTHOR'S ORGANIZ ATION 02/03/2024 [facility] DATE CREATED AUTHOR AUTHOR'S ORGANIZ ATION 02/15/2024 [facility] Care Teams (unrecognized sec tion and content) Team Status: Active Member Role Status Dates Emerald Jean APRN Primary Care Provider Active Team Status: Active Member Role Status Dates Ayanna Waldron MD Attending Provider Active Start: December 15, 2023 Team Status: Inactive Member Role Status Dates [place] Borges DO Attending Provider Active Start: February 06, 2024 End: February 06, 2024 Emerald Jean APRN Primary Care Provider Active Start: February 06, 2024 End: February 06, 2024 Goals (unrecognized section and content) Goals may be documented in a n alternate section FOR RECORDS PERTAINING TO PATIENTS WHO ARE [...] BE BASED ON THE PRIMARY CLINICAL RECORDS. [facility] [employer] provides no warranty or guarantee of the accuracy or completeness of information in this document.
== END 2024-02-18 19:57 | disposition home or self-care (01) ==
LOC: SLEEP 19:56
PROVIDERS: PCP Internal Medicine Cardiovascular Disease; Visit Provider Internal Medicine Cardiovascular Disease
DX: G47.33 Obstructive sleep apnea (adult) (pediatric) (principal)
CPT/HCPCS: 95810

== ENCOUNTER 2024-02-28 09:48 | Outpatient (OUT) | payer OTHER, SELFPAY ==
--- NOTE | 2024-02-28 | CT_ITS ---
[address] [address] Patient Name: NIELS NIELSEN MRN: [id number] date: 1965 Sex: M Assigned Patient Location: CT Current Patient Location: Accession/Order Number: [id number] Exam Date: 02/28/2024 09:50 Report Date: 03/01/2024 07:23 At the request of: ANNEMARIE RODNEY Procedure: CT lung screening low-dose EXAMINATION: CT lung screening low-dose HISTORY: F17.219 Z12.2 COMPARISON: 11/22/2023 chest x-ray TECHNIQUE: Axial, Coronal, and Sagittal images were created without the administration of IV contrast material. Dose reduction techniques were achieved by using automated exposure control and/or adjustment of mA and/or kV according to patient size and/or use of iterative reconstruction technique. FINDINGS: LUNGS: Endotracheal bronchial tree. Minimal paraseptal emphysema right upper lobe. No significant pulmonary nodule or mass PLEURA: No mass, effusion, or pneumothorax. VASCULATURE: No abnormality. EVANS: No mass or pathologic adenopathy. MEDIASTINUM: No mass or pathologic adenopathy. CARDIAC: No enlargement or pericardial effusion CORONARY ARTERIES: Coronary calcifications are mild. AORTA: No aortic aneurysm. Mild calcific atherosclerosis CHEST WALL: No mass or axillary adenopathy BONES: No bone lesion or fracture. LIMITED ABDOMEN: No suspicious findings. Limited images of the upper abdomen. OTHER: Negative. CT/CT lung screening low-dose IMPRESSION: LUNG SCREENING: Lung-RADS Category 1 Negative. No nodules and definitely benign nodules. Continue annual screening with LDCT in 12 months. Electronically authenticated by: ADRIANNE RICHARDSON Date: 03/01/2024 07:23
--- OUTSIDE RECORDS SUMMARY | 2024-02-28 09:51 | XMS_ITS | CCD ---
Author Organization [facility] Care Team Providers Care Gang Saw Operator Name Role Phone ANABEL LONG Unavailable Unavailable ETHAN, ANABEL Abdullahi Unavailable Unavailable ANABEL LONG Unavailable Unavailable LONG, ANABEL Abdullahi Unavailable Unavailable TAMMY CONTRERAS Unavailable Unavailable KARENGEE Admitting Unavailable KARENGEE Segura Attending Unavailable DEION MONK Consulting Unavaila ble BV, Physician - Emergency Consulting UnaKajal Ring Consulting Unavailable ELISABETH PEREZ Attending Unavailable ELISABETH PEREZ Attending Unavailable DO Jamaica Borges Attending Provider PRIMO Jean Primary Care Provider [phone] [place] Borges Admitting UnavailJamaica Alonzo Attending UnavailEmerald Strange [facility] Care Unavailable JAMAICA BORGES Attending Unavailable JAMAICA BORGES Referring Unavailable MARIPOSA BANUELOS Attending Unavailable MARIPOSA BANUELOS Referring Unavailable JAMAICA BORGES Attending Unavailable MARIPOSA BANUELOS Attending Unavailable Allergies Allergy Classification Reported Allergen(s) Allergy Type Date of Onset Reaction(s) Facility (1 source) No Known Medication Allergies; Translations: [No Known Medication Allergies] Propensity to adverse reactions to drug (disorder) [facility] Repository Problems Problem Classification Problem [...] head/brain wo/w conon MR head/brain wo/w con [facility] [place] [address] MRI Report Signed Patient: Ahsan Rivas MR#: [id number] 379 : 1965 Acct:[id number] Age/Sex: 58 / M ADM Date: 02/06/24 Loc: MR Room: Type: [facility] Attending Dr: Jamaica Borges DO Copies [...] changes. Impression dictated by: Shiva Rey Jr., D.ODaniela02/06/2024 7:24 PM Dictation Location: [place] [address] Transcribed By: [facility] 02/06/241923 Dictated By: Shiva Rey Jr, DO 02/06/241920 Signed By: 02/06/241923 Normal [facility] Office Visiton 01-19-2024 Follow-up visit [id number] Javier Rivas A 1965 M Date Provider Department Center 01/19/2024 ELISABETH BOOTH Family History Problem Relation Age of Onset Cancer Mother COPD Father Family Status - Relation Status Age at Mother Father Level of Service:73242 [place] OFFICE/OUTPATIENT ESTABLISHED MOD MDM 30 MIN [facility] 36on 01-15-2024 36 Regarding echo resul t from 01/07/2024: MD Mariposa Shetty MA Please notify patient his echo appears to be normal. Continue current management. Thank you Attempted to call patient's home #. The automated system said this line was currently suspended. I then called the cell # twice and it was busy. [facility] 36on 12-16-2023 36 Regarding lab result s from 12/12/2023: MD Mariposa Shetty MA Notify patient that his lipids shows mildly elevated LDL cholesterol, follow low-fat diet. His TSH and a.m. cortisol level are normal Spoke with patient's and made her aware. [facility] Orders Onlyon 12-11-2023 Orders Only [id number] Javier Rivas A 1965 M Date Provider Department Center 12/11/2023 KAITLIN ROY Family History Problem Relation Age of Onset Cancer Mother COPD Father Family Status - Relation Status Age at Mother Father [facility] Office Visiton 12-10-2023 Follow-up visit [id number] Javier Rivas A 1965 M Date Provider Department Center 12/10/2023 ELISABETH BOOTH Family History Problem Relation Age of Onset Cancer Mother COPD Father Family Status - Relation Status Age at Mother Father Level of Service:17780 [place] OFFICE/OUTPATIENT NEW MODERATE MDM 45 MINUTES [facility] Family Medicine Office/Clini c Noteon 11-27-2018 [...] Guille Khan PA-C 11/27/18 15:46 EDT Normal [facility] .eGFRon 11-20-2018 eGFR AA >60 Normal >=60 [facility] Comment on above: Result Comment: Resu lt = 0-14.9 mL/min/1.73 m2 Kidney failure or Dialysis Result = 15-29 mL/min/1.73 m2 Severe decrease in GFR Result = 30-59 mL/min/1.73 m2 Moderate decrease in GFR Result >= 60 mL/min/1.73 m2 Normal or increased GFR Performed By: #### E GFR #### [address] [address] eGFR Non-AA >60 Normal >=60 [facility] Comment on above: Result Comment: [...] dosing. Performed By: #### E GFR #### [address] [address] AMI 2Hron 11-20-2018 2 Hour Myoglobin 22.0 ng/mL Normal 17.4-105.7 [facility] Comment on above: Performed By: #### C BC #### [address] [address] Troponin I.cardiac [Mass/Vol] ng/mL Normal 0.00-0.03 [facility] Comment on above: Result Comment: An i ncreased Troponin-I value, in the absence of myocardial ischemia, may indicate other etiologies of cardiac damage. Performed By: #### C BC #### [address] [address] AMI Initon 11-20-2018 Initial Myoglobin 29.0 ng/mL Normal 17.4-105.7 [facility] Comment on above: Performed By: #### A MI1 #### [address] [address] Troponin I.cardiac [Mass/Vol] ng/mL Normal 0.00-0.03 [facility] Comment on above: Result Comment: An i ncreased Troponin-I value, in the absence of myocardial ischemia, may indicate other etiologies of cardiac damage. Performed By: #### A MI1 #### [address] [address] [id number] 11-20-2018 6 Hour Myoglobin 27.0 ng/mL Normal 17.4-105.7 [facility] Comment on above: Performed By: #### C BC #### [address] [address] Troponin I.cardiac [Mass/Vol] ng/mL Normal 0.00-0.03 [facility] Comment on above: Result Comment: An i ncreased Troponin-I value, in the absence of myocardial ischemia, may indicate other etiologies of cardiac damage. Performed By: #### C BC #### [address] [address] Basic Metabolic Profileon Anion gap [Moles/Vol] 14 mmol/L Normal 7-17 [facility] Comment on above: Performed By: #### C [id number] #### [address] [address] Calcium [Mass/Vol] 8.7 mg/dL Normal 8.5-10.3 [facility] Comment on above: Performed By: #### C [id number] #### [address] [address] Chloride [Moles/Vol] 105 mmol/L Normal 98-110 [facility] Comment on above: Performed By: #### C [id number] #### [address] [address] CO2 [Moles/Vol] 22 mmol/L Normal 22-32 [facility] Comment on above: Performed By: #### C [id number] #### [address] [address] Creatinine [Mass/Vol] 0.70 mg/dL Normal 0.61-1.24 [facility] Comment on above: Performed By: #### C [id number] #### [address] [address] Glucose [Mass/Vol] 100 mg/dL Normal 74-118 [facility] Comment on above: Performed By: #### C [id number] #### [address] [address] Potassium [Moles/Vol] 4.4 mmol/L Normal 3.4-4.8 [facility] Comment on above: Performed By: #### C [id number] #### [address] [address] Sodium [Moles/Vol] 137 mmol/L Normal 133-142 [facility] Comment on above: Performed By: #### C [id number] #### [address] [address] Urea nitrogen [Mass/Vol] 13 mg/dL Normal 8-26 [facility] Comment on above: Performed By: #### C [id number] #### [address] [address] Urea nitrogen/Creatinine [Mass ratio] 18.6 mg/mg Normal 10.0-20.0 [facility] Comment on above: Performed By: #### C [id number] #### [address] [address] CBC w/ Diffon 11-20-2018 Erythrocyte distribution width (RBC) [Ratio] 13.0 % Normal 11.6-14.8 [facility] Comment on above: Performed By: #### C BC #### [address] [address] Hematocrit (Bld) [Volume fraction] 46.3 % Normal 41.0-53.0 [facility] Comment on above: Performed By: #### C BC #### [address] [address] Hemoglobin (Bld) [Mass/Vol] 15.8 g/dL Normal 13.5-17.5 [facility] Comment on above: Performed By: #### C BC #### [address] [address] MCH (RBC) [Entitic mass] 32.5 pg Normal 27.0-35.0 [facility] Comment on above: Performed By: #### C BC #### [address] [address] MCHC (RBC) [Mass/Vol] 34.1 % Normal 31.0-37.0 [facility] Comment on above: Performed By: #### C BC #### [address] [address] MCV (RBC) [Entitic vol] 95.3 fL Normal 80.0-100.0 [facility] Comment on above: Performed By: #### C BC #### [facility] [address] [place] [address] Platelet mean volume (Bld) [Entitic vol] 8.6 fL Normal 6.7-10.6 [facility] Comment on above: Performed By: #### C BC #### [address] [address] Platelets (Bld) [#/Vol] 202 x10*3/mcL Normal 150-350 [facility] Comment on above: Performed By: #### C BC #### [address] [address] RBC (Bld) [#/Vol] 4.86 x10*6/mcL Normal 4.30-5.80 [facility] Comment on above: Performed By: #### C BC #### [address] [address] WBC (Bld) [#/Vol] 12.8 x10*3/mcL High 4.5-11.0 [facility] Comment on above: Performed By: #### C BC #### [address] [address] Cardiology Consultationon Cardiology Consultation Chief Complaint dyspnea [...] BEDOLLA, Deion Flynn 11/20/18 16:18 EDT Normal [facility] Biopharmaceutical Rep Progress Noteon 11-20-2018 Biopharmaceutical Rep Progress Note CM met with patient before huddles today. He is new to the floor from ER for chest pain. he is asking to go home since unable to do a stress test today. CM will update RN, educated patient on remaining in the hospital while labs are trending for [place]. He does have insurance, independent with adl's, [...] Recieved a call back from Dr. quintana principal secretary. Upon discussion, we reviewed patient listed [...] his job established. Refuses to speak to entry level financial analyst when CM offered. Offered self pay education pamphlet as well, pt refuses stating he will get it figured out. CM put financial assistance program in chart for Discharge. Electronically signed by ___ Leidy Chapin 11/20/18 14:32 EDT Normal [facility] D-Dimeron 11-20-2018 Fibrin D-dimer FEU IA (Bld) [Mass/Vol] 0.34 mg/L feu Normal 0.00-0.49 [facility] Comment on above: Result Comment: [...] assay. Performed By: #### D TRACY #### [address] [address] Diff Autoon 11-20-2018 Baso Absolute 0.1 x10*3/mcL Normal 0.0-0.2 [facility] Comment on above: Performed By: #### . Automated Diff #### [address] [address] Basophils/100 WBC (Bld) 0.8 % Normal 0.0-1.2 [facility] Comment on above: Performed By: #### . Automated Diff #### [address] [address] Eos Absolute 0.2 x10*3/mcL Normal 0.0-0.4 [facility] Comment on above: Performed By: #### . Automated Diff #### [address] [address] Eosinophils/100 WBC (Bld) 1.9 % Normal 0.0-6.1 [facility] Comment on above: Performed By: #### . Automated Diff #### [address] [address] Lymphocytes (Bld) [#/Vol] 3.5 x10*3/mcL Normal 1.0-4.8 [facility] Comment on above: Performed By: #### . Automated Diff #### [address] [address] Lymphocytes/100 WBC (Bld) 27.3 % Normal 27.2-40.8 [facility] Comment on above: Performed By: #### . Automated Diff #### [address] [address] Cache Absolute 0.9 x10*3/mcL Normal 0.3-1.1 [facility] Comment on above: Performed By: #### . Automated Diff #### [address] [address] Monocytes/100 WBC (Bld) 6.9 % Normal 4.7-13.9 [facility] Comment on above: Performed By: #### . Automated Diff #### [address] [address] Neutro Absolute 8.1 x10*3/mcL High 1.8-7.7 [facility] Comment on above: Performed By: #### . Automated Diff #### [address] [address] Neutro Auto 63.1 % Normal 47.2-70.8 [facility] Comment on above: Performed By: #### . Automated Diff #### [facility] [address] [place] [address] ED Clinical Summaryon 2018 ED Clinical Summary (Inserted Image. Ale ble to display) [facility] [address] [place] [address] ED Clinical Summary Person Information Name: Ahsan Rivas/BannerVitor Age: 53 Years : 1965 Sex: Male PCP: Marital Status: Single Phone: Race: White Ethnicity: Not or Language: Citizen Of [place] Visit Reason: Dyspnea; Chest pain - Cardiac Acuity: 2 Enc Type: Observation Med Service: Emergency Medicine Arrival: 11/20/2018 07:05:00 Discharge: LOS: 000 01:54 Checkin: 11/20/2018 07:05:00 Checkout: 11/20/2018 08:59:41 Dispo Type: Admitted to ICU Address: [address] [place], [place] [id number] Provider Notes: History of Present Illness Patient [...] range between ( 27.2 and 40.8 ) Cache Auto: 6.9 % -- Normal range between [...] range between ( 41.0 and 53.0 ) Cache Absolute: 0.9 x10 MCH: 32.5 pg -- [...] Attending Physician: Gee Benoit MD Consulting Physician: Referring Physician: Provider Role Assigned Unassigned Ramy Dooley DO ED Provider 11/20/2018 07:07:18 Follow up: Discharge Orders: Place in Observation 11/20/18 8:37:00 EDT, Coronary Care Unit, 11/20/18 8:37:00 EDT, Karen BEDOLLA, Karen Sawyer MD, Paul Anthony Request for Admit 11/20/18 8:34:00 EDT, 11/20/18 8:34:00 EDT, Coronary Care Unit, Jen Bey DO Patient Education Information: [facility] Poison Help line: . [facility] Hotline: [place] Tobacco Quit Line: [facility] ([place], [place]) [address]: [phone] [facility] ([place], [place]) [address]: [phone] [facility] [address] [facility] [place], [place]: [phone] Normal [facility] ED Note-Nursingon 11-20-2018 ED Note-Nursing Planting Supervisor obtained admission room - CCU charge nurse requests 10 minutes before transport Electronically signed by ___ Rachel Sandra 11/20/18 08:47 EDT Normal [facility] ED Note-Physicianon 11-21-19 ED Note-Physician [...] and in the presence of Dr. Dooley. Poolibporsha Attestation: The information in this document, created by the medical front desk coordinator for me, accurately reflects the services I [...] from someone other than the patient: Reviewed [facility] EMR to see if recent visits or hospitalizations. Review and summarized past medical records if pertinent and available in [employer]: Data Interpretation: I have have reviewed returned data from lab. Clinically important interpretation is: CBC is unremarkable Basic Metabolic panel with normal renal function, no significant abnormality Coags normal Initial cardiac enzymes negative d-d-tracy neg EKG: EKG time: 706 Rhythm:[normal sinus] Rate:88 Cayey:[normal] QRS:81 QT interval:399 ST/T wave changes: No [...] 07:12 63.1 Lymph Auto 11/20/18 07:12 27.3 Cache Auto 11/20/18 07:12 6.9 Eos Auto 11/20/18 07:12 1.9 Basophil Auto 11/20/18 07:12 0.8 Neutro Absolute 11/20/18 07:12 8.1 High Lymph Absolute 11/20/18 07:12 3.5 Cache Absolute 11/20/18 07:12 0.9 Eos Absolute 11/20/18 [...] Ramy Dooley DO 11/20/2018 08:35 EDT Normal [facility] History and Physicalon 11-20 History [...] 95.3 (11/20/18) Mean Platelet Volume: 8.6 (11/20/18) Cache Absolute: 0.9 (11/20/18) Cache Auto: 6.9 (11/20/18) Neutro Absolute: 8.1 (11/20/18) Neutro Auto: 63.1 (11/20/18) PT: 9.7 (11/20/18) PTT: 24.2 (11/20/18) RBC: 4.86 (11/20/18) RDW: 13.0 (11/20/18) Assessment/Plan 1. Chest pain Rule out [place] Stress test Cardiology consult 2. Dyspnea Repeat [...] Gee Benoit MD 11/20/18 10:06 EDT Normal [facility] Inpatient Clinical Summaryon 11-20-2018 Inpatient Clinical Summary [address] [address] [address] Clinical Summary Person Information Name: Ahsan Rivas Age: 53 Years : 1965 Sex: Male PCP: Marital Status: Single Phone: PCP: Race: White Ethnicity: Not or Language: Citizen [place] Visit Id: Visit Reason: Dyspnea; Chest pain - Cardiac Speciality: Acuity: Enc Type: Observation Med Service: Emergency Medicine Arrival: 11/20/2018 07:05:00 Discharge: Dispo Type: Admitted to ICU Address: [address] [place] [address] Diagnosis: 1:Chest pain; 2:Dyspnea; 3:Palpitations; 4:Hypertension Discharged [...] range between ( 27.2 and 40.8 ) Cache Auto: 6.9 % -- Normal range between [...] range between ( 41.0 and 53.0 ) Cache Absolute: 0.9 x10 MCH: 32.5 pg -- [...] Follow up: With: Address: When: Guille Khan [address] [place] [address], [address] [place] [id number] [phone] Business (1) 11/27/2018 15:00:00 Comments: Appointment Scheduled Type Location Start [facility] New Patient Visit [facility] 11/27/2018 15:00:00 11/27/2018 15:30:00 Confirmed Normal [facility] [place] CARDIOLITE W/EXER STRESSo n [...] peak heart rate and blood pressure [place] [address] mm Hg/min. Stress ECG: The stress ECG [...] Electronically Signed in Other Vendor System) Normal [facility] PTon 11-20-2018 INR Coag (PPP) [Relative time] 0.9 {INR} Normal <=3.5 [facility] Comment on above: Result Comment: INR has no normal range. INR Therapeutic range is: 2.0-3.0 (AF, CVA, TIAs, DVT prophylaxis, acute DVT) 2.5-3.5 ([facility] heart valves, recurrent thrombosis/emboli) Performed By: #### P TINR #### [address] [address] PT Coag (PPP) [Time] 9.7 s Normal 9.2-11.7 [facility] Comment on above: Performed By: #### P TINR #### [address] [address] PTTon 11-20-2018 aPTT Coag (Bld) [Time] 24.2 s Normal 20.6-27.7 [facility] Comment on above: Performed By: #### P TT #### [address] [address] XR Chest 1 Viewon 11-20-2018 XR Chest [...] Electronically Signed in Other Vendor System) Normal [facility] XR Chest 2 Viewson 9 [...] Electronically Signed in Other Vendor System) Normal [facility] Cult,Urineon 10-25-2017 Cult,Urine Specimen Description .CLEAN CATCH URINE Performed at [address] [place] [address] [phone] Special Requests NOT REPORTEDCulture NO GROWTH Performed at [address] [address] Report Status FINAL 10/25/2017 Normal [facility] Comment on above: Performed By: #### U RC ####[address] [phone] [place] [address] CBC with Diffon 10-24-2017 Abs. Basophil 0.05 k/uL Normal 0.00-0.20 [facility] Comment on above: Performed By: #### C DP, CP, LIP ####[address] [place], [place] [phone] Abs.Neutrophil (Seg) 5.37 k/uL Normal 1.50-8.10 [facility] Comment on above: Performed By: #### C DP, CP, LIP ####[address] , [place] [address] Basophils/100 WBC Auto (Bld) 1 % Normal 0-2 [facility] Comment on above: Performed By: #### C DP, CP, LIP ####[address] [place] [address] Eosinophils 0.57 10*3/uL High 0.00-0.44 [facility] Comment on above: Performed By: #### C DP, CP, LIP ####[address] , [place] [address] Eosinophils/100 leukocytes 7 % High 1-4 [facility] Comment on above: Performed By: #### C DP, CP, LIP ####[address] , [place] [address] Erythrocyte distribution width Auto Ratio (RBC) 13.4 % Normal 11.8-14.4 [facility] Comment on above: Performed By: #### C DP, CP, LIP ####[address] , [facility] Erythrocytes (RBC) 0.0 per 100 WBC Normal 0.0 [facility] Comment on above: Performed By: #### C DP, CP, LIP ####[address] , [place] [address] Erythrocytes (RBC) 5.69 10*6/uL Normal 4.21-5.77 [facility] Comment on above: Performed By: #### C DP, CP, LIP ####[address] , [facility] Granulocytes/100 WBC (Bld) 0.04 k/uL Normal 0.00-0.30 [facility] Comment on above: Result Comment: Perf ormed at [address] [place] [id number] Performed By: #### C DP, CP, LIP ####[address] , [facility] Hematocrit (HCT) 51.0 % High 40.7-50.3 [facility] Comment on above: Performed By: #### C DP, CP, LIP ####[address] , [place] [address] Hemoglobin mass conc (Bld) 18.0 g/dL High 13.0-17.0 [facility] Comment on above: Performed By: #### C DP, CP, LIP ####[address] [place] [address] Immature granulocytes #/vol (Bld) 1 % High 0 [facility] Comment on above: Performed By: #### C DP, CP, LIP ####[address] , [facility] Lymphocytes 1.35 10*3/uL Normal 1.10-3.70 [facility] Comment on above: Performed By: #### C DP, CP, LIP ####[address] [place] [address] Lymphocytes/100 leukocytes 15 % Low 24-43 [facility] Comment on above: Performed By: #### C DP, CP, LIP ####[address] , [place] [address] MCH 31.6 pg Normal 25.2-33.5 [facility] Comment on above: Performed By: #### C DP, CP, LIP ####[address] [place] [address] MCHC mass conc (RBC) 35.3 g/dL High 28.4-34.8 [facility] Comment on above: Performed By: #### C DP, CP, LIP ####[address] [place] [address] MCV 89.6 fL Normal 82.6-102.9 [facility] Comment on above: Performed By: #### C DP CP, LIP ####[address] [place] [address] Monocytes 1.36 10*3/uL High 0.10-1.20 [facility] Comment on above: Performed By: #### C DP, CP, LIP ####[address] [place] [address] Monocytes/100 leukocytes 16 % High 3-12 [facility] Comment on above: Performed By: #### C SANDRA CP, LIP ####[address] [place] [address] Neutrophil (Seg) 61 % Normal 36-65 [facility] Comment on above: Performed By: #### C SANDRA CP, LIP ####[address] [place] [address] Platelet mean volume (PMV) 10.5 fL Normal 8.1-13.5 [facility] Comment on above: Performed By: #### C SANDRA CP, LIP ####[address] [place] [address] Platelets 186 10*3/uL Normal 138-453 [facility] Comment on above: Performed By: #### C DP, CP, LIP ####[address] [place] [address] WBC (Leukocytes) 8.7 10*3/uL Normal 3.5-11.3 [facility] Comment on above: Performed By: #### C DP, CP, LIP ####[address] [place] [address] Auto Diff Performed NOT REPORTED Normal [facility] Comment on above: Performed By: #### C DP, CP, LIP ####[address] [place] [address] Erythrocyte morphology NOT REPORTED Normal [facility] Comment on above: Performed By: #### C DP, CP, LIP ####[address] [place] [address] Platelets NOT REPORTED Normal [facility] Comment on above: Performed By: #### C DP, CP, LIP ####[address] [place] [address] WBC Morphology NOT REPORTED Normal [facility] Comment on above: Performed By: #### C DP, CP, LIP ####[address] [place] [address] Comp Metabolic Profon 2017 (cont.) Normal [facility] Comment on above: Result Comment: Aver age GFR for 50-59 years old: 93 mL/min/1.73sq mChronic Kidney Disease: <60 mL/min/1.73sq mKidney failure: <15 mL/min/1.73sq meGFR calculated using average adult body mass. Additional eGFR calculator available at:http://www.Physiq/multiple_crcl_2012.htm Performed By: #### C DP, CP, LIP ####[address] [place] [address] Alanine aminotransferase (ALT) 18 U/L Normal 5-41 [facility] Comment on above: Performed By: #### C DP, CP, LIP ####[address] [place] [address] Albumin 4.2 g/dL Normal 3.5-5.2 [facility] Comment on above: Performed By: #### C DP, CP, LIP ####[address] [place] [address] Albumin/Globulin Ratio 1.2 {ratio} Normal 1.0-2.5 [facility] Comment on above: Performed By: #### C DP, CP, LIP ####[address] [place] [address] Alkaline Phos 74 U/L Normal 40-129 [facility] Comment on above: Performed By: #### C DP, CP, LIP ####[address] [place] [address] Anion gap 16 mmol/L Normal 9-17 [facility] Comment on above: Performed By: #### C DP, CP, LIP ####[address] [place] [address] Aspartate aminotransferase (AST) 24 U/L Normal <40 [facility] Comment on above: Performed By: #### C DP, CP, LIP ####[address] [place] [address] Bilirubin Ql (U) 0.64 mg/dL Normal 0.3-1.2 [facility] Comment on above: Performed By: #### C DP, CP, LIP ####[address] [place] [address] BUN/CRE Ratio 15 Normal 9-20 [facility] Comment on above: Performed By: #### C DP, CP, LIP ####[address] [place] [address] Calcium 9.2 mg/dL Normal 8.6-10.4 [facility] Comment on above: Performed By: #### C DP, CP, LIP ####[address] [place] [address] Chloride 91 mmol/L Low 98-107 [facility] Comment on above: Performed By: #### C DP, CP, LIP ####[address] [place] [address] CO2 23 mmol/L Normal 20-31 [facility] Comment on above: Performed By: #### C DP, CP, LIP ####[address] [place] [address] Creatinine 0.94 mg/dL Normal 0.70-1.20 [facility] Comment on above: Performed By: #### C DP, CP, LIP ####[address] [place] [address] eGFR (non-black) mL/min/{1.73_m2} Normal >60 [facility] Comment on above: Performed By: #### C DP, CP, LIP ####[address] [place] [address] Glucose mass conc 113 mg/dL High 70-99 [facility] Comment on above: Performed By: #### C DP, CP, LIP ####[address] [place] [address] Potassium molar conc 4.8 mmol/L Normal 3.7-5.3 [facility] Comment on above: Performed By: #### C DP, CP, LIP ####[address] [place] [address] Protein 7.6 g/dL Normal 6.4-8.3 [facility] Comment on above: Performed By: #### C DP, CP, LIP ####[address] [place] [address] Sodium 130 mmol/L Low 135-144 [facility] Comment on above: Performed By: #### C DP, CP, LIP ####[address] [place] [address] Staging: Normal [facility] Comment on above: Result Comment: Stag e 1: Some kidney damage normal GFRStage 2: Mild kidney damage GFR 60-89Stage 3: Moderate kidney damage GFR 30-59Stage 4: Severe kidney damage GFR 15-29Stage 5: Severe kidney damage GFR <15ESRD - chronic treatment by dialysis or transplantPerformed at [address] [place] [address] Performed By: #### C DP, CP, LIP ####[address] [place] [address] Urea nitrogen 14 mg/dL Normal 6-20 [facility] Comment on above: Performed By: #### C DP, CP, LIP ####[address] [place] [address] Lipaseon 10-24-2017 Lipase 27 U/L Normal 13-60 [facility] Comment on above: Result Comment: Perf ormed at [address] [place] [address] Performed By: #### C DP, CP, LIP ####[address] [place] [address] Urinalysis w/ Microon 2017 ----- Normal [facility] Comment on above: Performed By: #### U AMIC ####[address] [place] [address] Acetaminophen mass conc 1+ Abnormal NEG [facility] Comment on above: Performed By: #### U AMIC ####[address] [place] [address] Bilirubin (direct) Negative Normal NEG [facility] Comment on above: Performed By: #### U AMIC ####[address] [place] [address] Hemoglobin mass conc (Bld) Negative Normal NEG [facility] Comment on above: Performed By: #### U AMIC ####[address] [place] [address] Nitrite,Ur Negative Normal NEG [facility] Comment on above: Performed By: #### U AMIC ####[address] [place] [address] Turbidity CLEAR Normal CLEAR [facility] Comment on above: Performed By: #### U AMIC ####[address] [place] [address] Urine WBC's 0 TO 2 Normal 0-5 [facility] Comment on above: Performed By: #### U AMIC ####[address] [place] [address] Urine, color YELLOW Normal YEL [facility] Comment on above: Performed By: #### U AMIC ####[address] [place] [address] Urine, epithelial cells in sediment 0 TO 2 Normal 0-5 [facility] Comment on above: Result Comment: Perf ormed at [facility] [address] [place] [address] Performed By: #### U AMIC ####[address] [place] [address] Urine, erythrocytes 0 TO 2 Normal 0-2 [facility] Comment on above: Performed By: #### U AMIC ####[address] [place] [address] Urine, glucose presence Negative Normal NEG [facility] Comment on above: Performed By: #### U AMIC ####[address] [place] [address] Urine, leukocyte esterase presence Negative Normal NEG [facility] Comment on above: Performed By: #### U AMIC ####[address] [place] [address] Urine, pH 6.5 [pH] Normal 5.0-9.0 [facility] Comment on above: Performed By: #### U AMIC ####[address] [place] [address] Urine, protein presence Negative Normal NEG [facility] Comment on above: Performed By: #### U AMIC ####[address] [place] [address] Urine, specific gravity <1.005 Low 1.010-1.020 [facility] Comment on above: Performed By: #### U AMIC ####[address] [place] [address] Urobilinogen,Ur Normal Normal NORM [facility] Comment on above: Performed By: #### U AMIC ####[address] [place] [address] Comment NOT REPORTED Normal [facility] Comment on above: Performed By: #### U AMIC ####[address] [place] [address] Epithelial, Renal NOT REPORTED Normal 0 [facility] Comment on above: Performed By: #### U AMIC ####[address] [place] [address] Mucus Strands NOT REPORTED Normal NONE [facility] Comment on above: Performed By: #### U AMIC ####[address] [place] [address] Other Observations NOT REPORTED Normal NREQ [facility] Comment on above: Performed By: #### U AMIC ####[address] [place] [address] Trichomonas NOT REPORTED Normal NONE [facility] Comment on above: Performed By: #### U AMIC ####[address] [place] [address] Urine, amorphous sediment presence in sediment NOT REPORTED Normal NONE [facility] Comment on above: Performed By: #### U AMIC ####[address] [place] [address] Urine, bacteria in sediment NOT REPORTED Normal NONE [facility] Comment on above: Performed By: #### U AMIC ####[facility] [place] [address] Urine, casts in sediment NOT REPORTED Normal [facility] Comment on above: Performed By: #### U AMIC ####[facility] [place] [address] Urine, crystals in sediment NOT REPORTED Normal NONE [facility] Comment on above: Performed By: #### U AMIC ####[facility] [place] [address] Urine, yeast presence in sediment NOT REPORTED Normal NONE [facility] Comment on above: Performed By: #### U AMIC ####[address] [place] [address] Discharge Summaryon 03-11-20 17 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 [facility] Encounters Encounter Date Encounter Type Care Provider Facility Start: 02-24-2024 End: 02-24-2024 ambulatory MARIPOSA BANUELOS Not Available Start: 02-06-2024 End: 02-06-2024 Patient encounter procedure PRIMO Jean Work Phone: [facility] Work Phone: Start: 02-06-2024 End: 02-06-2024 ambulatory PRIMO Jean Work Phone: [facility] Work Phone: Start: 02-03-2024 End: 02-03-2024 ambulatory JAMAICA BORGES Not Available Start: 02-02-2024 End: 02-02-2024 ambulatory MARIPOSA BANUELOS Not Available Start: 01-20-2024 End: 01-20-2024 ambulatory MARIPOSA BANUELOS Not Available Start: 01-19-2024 End: 01-19-2024 ambulatory [facility] Start: 12-24-2023 End: 12-24-2023 ambulatory JAMAICA BORGES Not Available Start: 12-23-2023 End: 12-23-2023 ambulatory JAMAICA BORGES Not Available Start: 12-15-2023 Non-patient / Non-visit PRIMO Jean Work Phone: [facility] Gastro[facility]ology Work Phone: Start: 12-10-2023 End: 12-10-2023 ambulatory [facility] Start: 11-20-2018 End: 11-20-2018 Patient encounter procedure GEE HARGROVE KAREN Facility:[facility] Start: 10-24-2017 End: 10-24-2017 Emergency department patient visit [facility] Start: 12-27-2016 End: 12-28-2016 Ambulatory [facility] Procedures Date Procedure Procedure Detail Performing Clinician Start: 02-06-2024 MRI of head PRIMO Jean Work Phone: Start: 10-24-2017 NURSING COMMUNICATION S RAINA LONG Start: 10-24-2017 URINALYSIS WITH MICROSCOPIC ANABEL LONG Start: 10-24-2017 URINE CULTURE ANABEL ANU LACY Start: 10-24-2017 CBC WITH AUTO DIFFERENTIAL ANABEL LONG Start: 10-24-2017 COMPREHENSIVE METABO LIC PANEL ANABEL LONG Start: 10-24-2017 LIPASE ANABEL DELGADILLO Start: 10-24-[address] [facility] Payers Date Payer Category Payer Self-pay 2016 Unknown [id number] 2015 Unknown [id number] 1965 Unknown [id number] 2.16.8 [id number] 1965 Unknown [id number] 2.16.84 [id number] 1964 Unknown [id number] 2.16.84 [id number] 1964 Unknown [id number] 2.16.84 [id number] 1964 Unknown [id number] 2.16.84 [id number] 1964 Unknown [id number] 2.16.84 [id number] 1964 Unknown [id number] 2.16.84 [id number] Unknown [id number] 2.16.8 [id number] Social History Date Type Detail Facility Tobacco smoking stat [facility] Unknown if ever smoked [facility] Work Phone: Start: 1965 Sex Assigned At Male F [facility] Progress note 01-19-2024 Note Date & Type [...] is a longtime smoker. He presented to [facility] ED last month for syncope. He [...] 06/25/2016 Normal si (more content not included)... [facility] Progress note 12-10-2023 Note Date & Type Note Facility 12-10-2023 Note [facility] Note Reason for cardiology [...] is a longtime smoker. He presented to [facility] ED last month for syncope. He [...] or tachyarrhythmias. Dys (more content not included)... [facility] Evaluation note Note Date & Type Note Facility Evaluation note No assessment information itzel brarios [facility] Work Phone: Summary Purpose Family History No [...] [1] Hospital Course He ruled out for [place]. Chest x-ray was normal. Stress test was [...] AUTHOR 12/25/2017 Liz nichols DATE CREATED AUTHOR AUTHOR'S ORGANIZ ATION 04/15/2019 [facility] DATE CREATED AUTHOR AUTHOR'S ORGANIZ ATION 01/22/2024 [facility] DATE CREATED AUTHOR AUTHOR'S ORGANIZ ATION 02/15/2024 [facility] DATE CREATED AUTHOR AUTHOR'S ORGANIZ ATION 02/26/2024 [facility] [employer] Care Teams (unrecognized sec tion and content) [...] BE BASED ON THE PRIMARY CLINICAL RECORDS. [employer] provides no warranty or guarantee of the accuracy or completeness of information in this document.
== END 2024-02-28 09:49 | disposition home or self-care (01) ==
LOC: CT 09:48
PROVIDERS: PCP Nurse Practitioner; Visit Provider Internal Medicine
DX: F17.219 Nicotine dependence, cigarettes, with unspecified nicotine-induced disorders (principal); Z12.2 Encounter for screening for malignant neoplasm of respiratory organs
CPT/HCPCS: 71271

== ENCOUNTER 2024-03-05 12:12 | Emergency (ER) | payer OTHER, SELFPAY ==
[2024-03-05 12:17] VITALS: BP 148/89; PULSE 72; TEMP 36.4; O2SAT 97; BMI 25.3
[2024-03-05 12:25] VITALS: O2SAT 97
--- NOTE | 2024-03-05 12:38 | ED.ALLEREA1 ---
HPI - Allergic Reaction General Chief complaint: Allergic Reaction Stated complaint: BEE STING Time Seen by Provider: 03/05/24 12:23 Source: patient Mode of arrival: walk-in Limitations: no limitations History of Present Illness HPI narrative: The patient presented to the ER with facial swelling in addition to 3 spots where he had a bee sting before arrival. The patient mentioned that this happened when he was outside and there was bee stings cause him to have pain localized as well. There was no fever no chills and the patient had no symptoms until he had the bee stings and he started having shortness of breath and facial swelling. There was no difficulty speaking no tongue swelling at any time no compromise of the airway The patient have no similar symptoms before and had no allergy to bee stings Related Data Previous Rx's ?Medication ?Instructions ?Recorded diphenhydramine HCl 25 mg capsule 25 mg PO TID PRN allergic reaction 03/05/24 (Benadryl) #10 caps epinephrine 0.3 mg/0.3 mL 0.3 mg (0.3 mL) IM ONCE PRN 03/05/24 injection, auto-injector (EpiPen allergic reaction #2 ea 2-Ean) famotidine 20 mg tablet (Pepcid) 20 mg PO BID #10 tabs 03/05/24 prednisone 20 mg tablet 40 mg (2 x 20 mg) PO DAILY 5 days 03/05/24 #10 tabs Allergies Allergy/AdvReac Type Severity Reaction Status Date / Time No Known Drug Allergies Allergy Verified 03/05/24 12:20 Review of Systems ROS Status of ROS 10 or more systems reviewed and unremarkable except as noted in history and below PFSH PFS Social History Smoking status: Heavy tobacco smoker Exam Narrative Exam Narrative: Nurses notes and vital signs reviewed and patient is not hypoxic. General: Well-appearing and in no apparent distress. Skin: Warm, dry, no pallor noted. No rash. Head: Normocephalic, atraumatic. It was noted that the patient have lower lid swelling in both eyes but there is no other detected pathology Neck: Supple, non-tender. Eye: Pupils are equal, round and EOMI. No scleral icterus. Ears, Nose, Mouth, and Throat: TM are clear, no nasal mucosal hypertrophy. Oral mucosa is moist, no posterior oropharynx erythema, uvula is mid-line Cardiovascular: Regular Rate and Rhythm without murmur, gallop or rub. Respiratory: No accessory muscle use or respiratory distress. Lungs are clear to auscultation, no wheezing, rales or rhonchi Chest Wall: no tenderness Back: No midline thoracic or lumbar vertebral tenderness. No CVA tenderness Musculoskeletal: normal ROM, no calf or popliteal tenderness, no lower extremity edema/swelling GI: Abdomen is soft, non-distended. Normal bowel sounds. No masses appreciated. No tenderness to palpation. No rebound, guarding, or rigidity noted. Neurological: A&O x4. No cranial nerve dysfunction observed. No truncal ataxia. Moves all extremities. Sensation intact. Psychiatric: Cooperative and interactive. Normal mood and affect. There was no compromise of the airway at any time Skin examination showed that the patient had 3 lesions mostly papular on the posterior aspect of the left arm as well as the forehead bilaterally Constitutional Vital Signs, click to edit/add: Last Vital Signs Temp 97.6 F 03/05/24 12:17 Pulse 72 03/05/24 12:17 Resp 03/05/24 12:17 BP 148/89 H 03/05/24 12:17 Pulse Ox 97 03/05/24 12:25 O2 Del Method Room Air 03/05/24 12:25 Course Vital Signs Vital signs: Vital Signs Temperature 97.6 F 03/05/24 12:17 Pulse Rate 72 03/05/24 12:17 Respiratory Rate 03/05/24 12:17 Blood Pressure 148/89 H 03/05/24 12:17 Pulse Oximetry 97 03/05/24 12:17 Oxygen Delivery Method Room Air 03/05/24 12:17 Temperature 97.6 F 03/05/24 12:17 Pulse Rate 72 03/05/24 12:17 Respiratory Rate 03/05/24 12:17 Blood Pressure 148/89 H 03/05/24 12:17 Pulse Oximetry 97 03/05/24 12:25 Oxygen Delivery Method Room Air 03/05/24 12:25 MDM - Allergic Reaction MDM Narrative Medical decision making narrative: The patient presented to us with a bee sting he did complain of shortness of breath and he have a history of asthma but there was no wheezing detected examination But because of the anticipated possible allergic reaction with the facial swelling the patient was treated with epinephrine Benadryl as well as prednisone and Pepcid The patient after being in the ER at least for an hour and a half is feeling better, decrease in the facial, there was no compromise of the airway or tongue involvement at any time The patient also was treated with albuterol in the ER Patient was discharged home with EpiPen as well as Benadryl and prednisone and Pepcid for the next 3 days Also instructed about the importance of monitoring symptoms and coming back in case of any new symptoms The patient is to follow up with primary care physician in next 2-3 days or to return to the emergency department should any of the signs or symptoms worsen or new symptoms develop. The patient agrees with the following Diagnosis and Treatment plan and the patient will be discharged home. Discharge Plan Discharge Stand Alone Forms: Work/School Release, Portal Instructions Chief Complaint: Allergic Reaction Clinical Impression: Allergic reaction to bee sting Patient Disposition: Home, Self-Care Time of Disposition Decision: 13:36 Condition: Good Prescriptions / Home Meds: New prednisone 20 mg tablet 40 mg PO DAILY 5 Days Qty: 10 0RF famotidine [Pepcid] 20 mg tablet 20 mg PO BID Qty: 10 0RF diphenhydramine HCl [Benadryl] 25 mg capsule 25 mg PO TID PRN (Reason: allergic reaction) Qty: 10 0RF epinephrine [EpiPen 2-Ean] 0.3 mg/0.3 mL auto-injector 0.3 mg IM ONCE PRN (Reason: allergic reaction) Qty: 2 0RF Rx Instructions: for 2 doses Print Language: Jamaican Instructions: Epinephrine (By injection), Insect Bite or Sting (ED) Referrals: Emerald Jean, MACHINE ASSEMBLER SUPERVISOR [Primary Care Provider] - 1 week
[2024-03-05] MEDS: EPINEPHRINE HCL PF 1 MG/ML AMPULE 0.3 MG IM (12:50)
[2024-03-05] MEDS: ALBUTEROL SULFATE 2.5 MG/3 ML VIAL NEB IH (12:50)
[2024-03-05] MEDS: FAMOTIDINE/PF 20 MG/2 ML VIAL IV (12:53)
[2024-03-05] MEDS: METHYLPREDNISOLONE SOD SUCC PF 125 MG/2 ML VIAL IVP (12:53)
[2024-03-05] MEDS: DIPHENHYDRAMINE HCL 50 MG/ML VIAL 25 MG IV (12:54)
[2024-03-05 14:03] VITALS: PULSE 88; O2SAT 99
== END 2024-03-05 14:04 | disposition home or self-care (01) ==
PROVIDERS: Emergency Provider Emergency Medicine; PCP Nurse Practitioner
DX: T63.441A Toxic effect of venom of bees, accidental (unintentional), initial encounter (principal); R22.0 Localized swelling, mass and lump, head; R06.02 Shortness of breath; F17.200 Nicotine dependence, unspecified, uncomplicated; J45.909 Unspecified asthma, uncomplicated
CPT/HCPCS: 94640; 96372; 96374; 96375; 99284; J1200; J2919

== ENCOUNTER 2024-03-10 09:31 | Outpatient (OUT) | payer OTHER, SELFPAY ==
--- OUTSIDE RECORDS SUMMARY | 2024-03-10 09:53 | XMS_ITS | CCD ---
Author Organization [facility] Care Team Providers Care Imaging Nurse Name Role Phone ANABEL LONG Unavailable Unavailable LONG, ANABEL Abdullahi Unavailable Unavailable ANABEL LONG Unavailable Unavailable LONG, ANABEL Abdullahi Unavailable Unavailable TAMMY CONTRERAS Unavailable Unavailable KARENGEE Admitting Unavailable KARENGEE Segura Attending Unavailable DEION MONK Consulting Unavaila ble BV, Physician - Emergency Consulting UnaKajal Ring Consulting Unavailable ELISABETH PEREZ Attending Unavailable ELISABETH PEREZ Attending Unavailable DO Jamaica Borges Attending Provider [phone] PRIMO Jean Primary Care Provider [phone] Jamaica Borges Admitting UnavailJamaica Alonzo Attending UnavailEmerald Strange Primary Care Unavailable JAMAICA BORGES Attending Unavailable JAMAICA BORGES Referring Unavailable MARIPOSA BANUELOS Attending Unavailable MARIPOSA BANUELOS Referring Unavailable JAMAICA BORGES Attending Unavailable MARIPOSA BANUELOS Attending Unavailable MARIPOSA BANUELOS Referring Unavailable Allergies Allergy Classification Reported Allergen(s) Allergy Type Date of Onset Reaction(s) Facility (1 source) No Known Medication Allergies; Translations: [No Known Medication Allergies] Propensity to adverse reactions to drug (disorder) [facility] Repository Problems Problem Classification Problem Date [...] head/brain wo/w conon MR head/brain wo/w con [facility] Main [place] [address] [place] [address] MRI Report Signed Patient: Ahsan Rivas MR#: [id number] : 1965 Acct:[id number] Age/Sex: 58 / M ADM Date: 02/06/24 Loc: Room: Type: [facility] Attending Dr: Jamaica Borges DO Copies to: [...] Rey Jr., D.O.02/06/2024 7:24 PM Dictation Location: [place] [address] Transcribed By: RHINA 02/06/241923 Dictated By: Shiva Rey Jr, DO 02/06/241920 Signed By: 02/06/241923 Normal [facility] Office Visiton 01-19-2024 Follow-up visit [id number] Javier Rivas A 1965 M Date Provider Department Center 01/19/2024 ELISABETH BOOTH Family History Problem Relation Age of Onset Cancer Mother COPD Father Family Status - Relation Status Age at Mother Father Level of Service:15737 [place] OFFICE/OUTPATIENT ESTABLISHED MOD MDM 30 MIN Normal [facility] 36on 01-15-2024 36 Regarding echo resul t from 01/07/2024: MD Mariposa Shetty MA Please notify patient his echo appears to be normal. Continue current management. Thank you Attempted to call patient's home #. The automated system said this line was currently suspended. I then called the cell # twice and it was busy. Normal [facility] 36on 12-16-2023 36 Regarding lab result s from 12/12/2023: MD Mariposa Shetty MA Notify patient that his lipids shows mildly elevated LDL cholesterol, follow low-fat diet. His TSH and a.m. cortisol level are normal Spoke with patient's and made her aware. Normal [facility] Orders Onlyon 12-11-2023 Orders Only [id number] Javier Rivas A 1965 M Date Provider Department Center 12/11/2023 KAITLIN ROY Family History Problem Relation Age of Onset Cancer Mother COPD Father Family Status - Relation Status Age at Mother Father Normal [facility] Office Visiton 12-10-2023 Follow-up visit [id number] Javier Rivas A 1965 M Date Provider Department Center 12/10/2023 ELISABETH BOOTH Family History Problem Relation Age of Onset Cancer Mother COPD Father Family Status - Relation Status Age at Mother Father Level of Service:95356 [place] OFFICE/OUTPATIENT NEW MODERATE MDM 45 MINUTES Normal [facility] Family Medicine Office/Clini c Noteon 11-27-2018 [...] Guille Khan PA-C 11/27/18 15:46 EDT Normal [facility] .eGFRon 11-20-2018 eGFR AA >60 Normal >=60 [facility] Comment on above: Result Comment: Resu lt = 0-14.9 mL/min/1.73 m2 Kidney failure or Dialysis Result = 15-29 mL/min/1.73 m2 Severe decrease in GFR Result = 30-59 mL/min/1.73 m2 Moderate decrease in GFR Result >= 60 mL/min/1.73 m2 Normal or increased GFR Performed By: #### E GFR #### [address] [address] eGFR Non-AA >60 Normal >=60 [facility] Comment on above: Result Comment: Resu [...] dosing. Performed By: #### E GFR #### [address] [address] AMI 2Hron 11-20-2018 2 Hour Myoglobin 22.0 ng/mL Normal 17.4-105.7 [facility] Comment on above: Performed By: #### C BC #### [address] [address] Troponin I.cardiac [Mass/Vol] ng/mL Normal 0.00-0.03 [facility] Comment on above: Result Comment: An i ncreased Troponin-I value, in the absence of myocardial ischemia, may indicate other etiologies of cardiac damage. Performed By: #### C BC #### [address] [address] AMI Initon 11-20-2018 Initial Myoglobin 29.0 ng/mL Normal 17.4-105.7 [facility] Comment on above: Performed By: #### A MI1 #### [address] [address] Troponin I.cardiac [Mass/Vol] ng/mL Normal 0.00-0.03 [facility] Comment on above: Result Comment: An i ncreased Troponin-I value, in the absence of myocardial ischemia, may indicate other etiologies of cardiac damage. Performed By: #### A MI1 #### [address] [address] [id number] 11-20-2018 6 Hour Myoglobin 27.0 ng/mL Normal 17.4-105.7 [facility] Comment on above: Performed By: #### C BC #### [address] [address] Troponin I.cardiac [Mass/Vol] ng/mL Normal 0.00-0.03 [facility] Comment on above: Result Comment: An i ncreased Troponin-I value, in the absence of myocardial ischemia, may indicate other etiologies of cardiac damage. Performed By: #### C BC #### [facility] [address] [place] [address] Basic Metabolic Profileon Anion gap [Moles/Vol] 14 mmol/L Normal 7-17 [facility] Comment on above: Performed By: #### C [id number] #### [address] [address] Calcium [Mass/Vol] 8.7 mg/dL Normal 8.5-10.3 [facility] Comment on above: Performed By: #### C [id number] #### [address] [address] Chloride [Moles/Vol] 105 mmol/L Normal 98-110 [facility] Comment on above: Performed By: #### C [id number] #### [address] [address] CO2 [Moles/Vol] 22 mmol/L Normal 22-32 [facility] Comment on above: Performed By: #### C [id number] #### [address] [address] Creatinine [Mass/Vol] 0.70 mg/dL Normal 0.61-1.24 [facility] Comment on above: Performed By: #### C [id number] #### [address] [address] Glucose [Mass/Vol] 100 mg/dL Normal 74-118 [facility] Comment on above: Performed By: #### C [id number] #### [address] [address] Potassium [Moles/Vol] 4.4 mmol/L Normal 3.4-4.8 [facility] Comment on above: Performed By: #### C [id number] #### [address] [address] Sodium [Moles/Vol] 137 mmol/L Normal 133-142 [facility] Comment on above: Performed By: #### C [id number] #### [address] [address] Urea nitrogen [Mass/Vol] 13 mg/dL Normal 8-26 [facility] Comment on above: Performed By: #### C [id number] #### [address] [address] Urea nitrogen/Creatinine [Mass ratio] 18.6 mg/mg Normal 10.0-20.0 [facility] Comment on above: Performed By: #### C [id number] #### [address] [address] CBC w/ Diffon 11-20-2018 Erythrocyte distribution width (RBC) [Ratio] 13.0 % Normal 11.6-14.8 [facility] Comment on above: Performed By: #### C BC #### [address] [address] Hematocrit (Bld) [Volume fraction] 46.3 % Normal 41.0-53.0 [facility] Comment on above: Performed By: #### C BC #### [address] [address] Hemoglobin (Bld) [Mass/Vol] 15.8 g/dL Normal 13.5-17.5 [facility] Comment on above: Performed By: #### C BC #### [address] [address] MCH (RBC) [Entitic mass] 32.5 pg Normal 27.0-35.0 [facility] Comment on above: Performed By: #### C BC #### [address] [address] MCHC (RBC) [Mass/Vol] 34.1 % Normal 31.0-37.0 [facility] Comment on above: Performed By: #### C BC #### [address] [address] MCV (RBC) [Entitic vol] 95.3 fL Normal 80.0-100.0 [facility] Comment on above: Performed By: #### C BC #### [facility] [address] [place] [address] Platelet mean volume (Bld) [Entitic vol] 8.6 fL Normal 6.7-10.6 [facility] Comment on above: Performed By: #### C BC #### [address] [address] Platelets (Bld) [#/Vol] 202 x10*3/mcL Normal 150-350 [facility] Comment on above: Performed By: #### C BC #### [facility] [address] [place] [address] RBC (Bld) [#/Vol] 4.86 x10*6/mcL Normal 4.30-5.80 [facility] Comment on above: Performed By: #### C BC #### [facility] [address] [place] [address] WBC (Bld) [#/Vol] 12.8 x10*3/mcL High 4.5-11.0 [facility] Comment on above: Performed By: #### C BC #### [address] [address] Cardiology Consultationon Cardiology Consultation Chief Complaint dyspnea [...] available. Electronically signed by ___ Aleshia BEDOLLA, Deionrenan Flynn 11/20/18 16:18 EDT Normal [facility] Relay Dispatcher Progress Noteon 11-20-2018 Relay Dispatcher Progress Note CM met with patient before huddles today. He is new to the floor from ER for chest pain. he is asking to go home since unable to do a stress test today. CM will update RN, educated patient on remaining in the hospital while labs are trending for [place]. He does have insurance, independent with adl's, [...] Recieved a call back from Dr. quintana medical secretary teacher. Upon discussion, we reviewed patient listed as [...] job established. Refuses to speak to financial compliance officer when CM offered. Offered self pay education pamphlet as well, pt refuses stating he will get it figured out. CM put financial assistance program in chart for Discharge. Electronically signed by ___ Leidy Chapin 11/20/18 14:32 EDT Normal [facility] D-Dimeron 11-20-2018 Fibrin D-dimer FEU IA (Bld) [Mass/Vol] 0.34 mg/L feu Normal 0.00-0.49 [facility] Comment on above: Result Comment: Resu [...] assay. Performed By: #### D TRACY #### [address] [address] Diff Autoon 11-20-2018 Baso Absolute 0.1 x10*3/mcL Normal 0.0-0.2 [facility] Comment on above: Performed By: #### . Automated Diff #### [address] [place] [address] Basophils/100 WBC (Bld) 0.8 % Normal 0.0-1.2 [facility] Comment on above: Performed By: #### . Automated Diff #### [address] [address] Eos Absolute 0.2 x10*3/mcL Normal 0.0-0.4 [facility] Comment on above: Performed By: #### . Automated Diff #### [address] [address] Eosinophils/100 WBC (Bld) 1.9 % Normal 0.0-6.1 [facility] Comment on above: Performed By: #### . Automated Diff #### [address] [address] Lymphocytes (Bld) [#/Vol] 3.5 x10*3/mcL Normal 1.0-4.8 [facility] Comment on above: Performed By: #### . Automated Diff #### [address] [address] Lymphocytes/100 WBC (Bld) 27.3 % Normal 27.2-40.8 [facility] Comment on above: Performed By: #### . Automated Diff #### [address] [address] [place] Absolute 0.9 x10*3/mcL Normal 0.3-1.1 [facility] Comment on above: Performed By: #### . Automated Diff #### [address] [address] Monocytes/100 WBC (Bld) 6.9 % Normal 4.7-13.9 [facility] Comment on above: Performed By: #### . Automated Diff #### [address] [address] Neutro Absolute 8.1 x10*3/mcL High 1.8-7.7 [facility] Comment on above: Performed By: #### . Automated Diff #### [address] [address] Neutro Auto 63.1 % Normal 47.2-70.8 [facility] Comment on above: Performed By: #### . Automated Diff #### [facility] [address] [place] [address] ED Clinical Summaryon 2018 ED Clinical Summary (Inserted Image. Ale ble to display) [facility] [address] [place] [address] ED Clinical Summary Person Information Name: Ahsan Rivas/[facility] Age: 53 Years : 1965 Sex: Male PCP: Marital Status: Single Phone: Race: White Ethnicity: Not or Language: Central African Visit Reason: Dyspnea; Chest pain - Cardiac Acuity: 2 Enc Type: Observation Med Service: Emergency Medicine Arrival: 11/20/2018 07:05:00 Discharge: LOS: 000 01:54 Checkin: 11/20/2018 07:05:00 Checkout: 11/20/2018 08:59:41 Dispo Type: Admitted to ICU Address: [address] [place], [place] [id number] Provider Notes: History of Present Illness Patient [...] range between ( 27.2 and 40.8 ) [place] Auto: 6.9 % -- Normal range between [...] range between ( 41.0 and 53.0 ) [place] Absolute: 0.9 x10 MCH: 32.5 pg -- [...] Unit, Jen Bey DO Patient Education Information: [facility] Poison Help line: . [facility] Hotline: [place] Tobacco Quit Line: [facility] ([place], [place]) [address]: [phone] [facility] ([place], [place]) [address]: [phone] [facility] [address], [place]: [phone] Normal [facility] ED Note-Nursingon 11-20-2018 ED Note-Nursing Online Merchandising Coordinator obtained admission room - CCU charge nurse requests 10 minutes before transport Electronically signed by ___ Rachel Sandra 11/20/18 08:47 EDT Normal [facility] ED Note-Physicianon 11-21-19 ED Note-Physician Chief [...] in this document, created by the medical technologist generalist for me, accurately reflects the services I [...] from someone other than the patient: Reviewed [employer] EMR to see if recent visits or hospitalizations. Review and summarized past medical records if pertinent and available in [employer]: Data Interpretation: I have have reviewed returned data from lab. Clinically important interpretation is: CBC is unremarkable Basic Metabolic panel with normal renal function, no significant abnormality Coags normal Initial cardiac enzymes negative d-d-tracy neg EKG: EKG time: 706 Rhythm:[normal sinus] Rate:88 Milmay:[normal] QRS:81 QT interval:399 ST/T wave changes: No [...] 07:12 63.1 Lymph Auto 11/20/18 07:12 27.3 [place] Auto 11/20/18 07:12 6.9 Eos Auto 11/20/18 07:12 1.9 Basophil Auto 11/20/18 07:12 0.8 Neutro Absolute 11/20/18 07:12 8.1 High Lymph Absolute 11/20/18 07:12 3.5 [place] Absolute 11/20/18 07:12 0.9 Eos Absolute 11/20/18 [...] Ramy Dooley DO 11/20/2018 08:35 EDT Normal [facility] History and Physicalon 11-20 History and [...] 95.3 (11/20/18) Mean Platelet Volume: 8.6 (11/20/18) [place] Absolute: 0.9 (11/20/18) [place] Auto: 6.9 (11/20/18) Neutro Absolute: 8.1 (11/20/18) Neutro Auto: 63.1 (11/20/18) PT: 9.7 (11/20/18) PTT: 24.2 (11/20/18) RBC: 4.86 (11/20/18) RDW: 13.0 (11/20/18) Assessment/Plan 1. Chest pain Rule out [place] Stress test Cardiology consult 2. Dyspnea Repeat [...] Gee Jones MD 11/20/18 10:06 EDT Normal [facility] Inpatient Clinical Summaryon 11-20-2018 Inpatient Clinical Summary [address] [address] [address] Clinical Summary Person Information Name: Ahsan Rivas Age: 53 Years : 1965 Sex: Male PCP: Marital Status: Single Phone: PCP: Race: White Ethnicity: Not or Language: [place] Visit Id: Visit Reason: Dyspnea; Chest pain - Cardiac Speciality: Acuity: Enc Type: Observation Med Service: Emergency Medicine Arrival: 11/20/2018 07:05:00 Discharge: Dispo Type: Admitted to ICU Address: [address] [place] [address] Diagnosis: 1:Chest pain; 2:Dyspnea; 3:Palpitations; 4:Hypertension Discharged [...] range between ( 27.2 and 40.8 ) [place] Auto: 6.9 % -- Normal range between [...] range between ( 41.0 and 53.0 ) [place] Absolute: 0.9 x10 MCH: 32.5 pg -- [...] Follow up: With: Address: When: Guille Khan [address] [place] [address], [address] [place], [place] [phone] Business (1) 11/27/2018 15:00:00 Comments: Appointment Scheduled Type Location Start [facility] New Patient Visit 30 Jourdan Redman 11/27/2018 15:00:00 11/27/2018 15:30:00 Confirmed Normal [facility] NM CARDIOLITE W/EXER STRESSo n 11-20-2018 [...] peak heart rate and blood pressure was [address] mm Hg/min. Stress ECG: The stress ECG [...] Electronically Signed in Other Vendor System) Normal [facility] PTon 11-20-2018 INR Coag (PPP) [Relative time] 0.9 {INR} Normal <=3.5 [facility] Comment on above: Result Comment: INR has no normal range. INR Therapeutic range is: 2.0-3.0 (AF, CVA, TIAs, DVT prophylaxis, acute DVT) 2.5-3.5 ([facility] heart valves, recurrent thrombosis/emboli) Performed By: #### P TINR #### [place] [address] PT Coag (PPP) [Time] 9.7 s Normal 9.2-11.7 [facility] Comment on above: Performed By: #### P TINR #### [address] [address] PTTon 11-20-2018 aPTT Coag (Bld) [Time] 24.2 s Normal 20.6-27.7 [facility] Comment on above: Performed By: #### P TT #### [address] [address] XR Chest 1 Viewon 11-20-2018 XR Chest [...] Electronically Signed in Other Vendor System) Normal [facility] XR Chest 2 Viewson 9 XR [...] Electronically Signed in Other Vendor System) Normal [facility] Cult,Urineon 10-25-2017 Cult,Urine Specimen Description .CLEAN CATCH URINE Performed at [address] [place] [address] [phone] Special Requests NOT REPORTEDCulture NO GROWTH Performed at [address] [address] Report Status FINAL 10/25/2017 Normal [facility] Comment on above: Performed By: #### U RC ####[address] [phone] [place] [address] CBC with Diffon 10-24-2017 Abs. Basophil 0.05 k/uL Normal 0.00-0.20 [facility] Comment on above: Performed By: #### C DP, CP, LIP ####[address] [place] [address] Abs.Neutrophil (Seg) 5.37 k/uL Normal 1.50-8.10 [facility] Comment on above: Performed By: #### C DP, CP, LIP ####[address] , [place] [address] Basophils/100 WBC Auto (Bld) 1 % Normal 0-2 [facility] Comment on above: Performed By: #### C DP, CP, LIP ####[address] , [place] [address] Eosinophils 0.57 10*3/uL High 0.00-0.44 [facility] Comment on above: Performed By: #### C DP, CP, LIP ####[address] , [place] [address] Eosinophils/100 leukocytes 7 % High 1-4 [facility] Comment on above: Performed By: #### C DP, CP, LIP ####[address] , [place] [address] Erythrocyte distribution width Auto Ratio (RBC) 13.4 % Normal 11.8-14.4 [facility] Comment on above: Performed By: #### C DP, CP, LIP ####[address] , [place] [address] Erythrocytes (RBC) 0.0 per 100 WBC Normal 0.0 [facility] Comment on above: Performed By: #### C DP, CP, LIP ####[address] , [place] [address] Erythrocytes (RBC) 5.69 10*6/uL Normal 4.21-5.77 [facility] Comment on above: Performed By: #### C DP, CP, LIP ####[address] , [place] [address] Granulocytes/100 WBC (Bld) 0.04 k/uL Normal 0.00-0.30 [facility] Comment on above: Result Comment: Perf ormed at [address] [place], [place] [address] Performed By: #### C DP, CP, LIP ####[address] , [facility]83 Hematocrit (HCT) 51.0 % High 40.7-50.3 [facility] Comment on above: Performed By: #### C DP, CP, LIP ####[address] , [facility] Hemoglobin mass conc (Bld) 18.0 g/dL High 13.0-17.0 [facility] Comment on above: Performed By: #### C DP, CP, LIP ####[address] [place] [address] Immature granulocytes #/vol (Bld) 1 % High 0 [facility] Comment on above: Performed By: #### C DP, CP, LIP ####[address] , [facility] Lymphocytes 1.35 10*3/uL Normal 1.10-3.70 [facility] Comment on above: Performed By: #### C DP, CP, LIP ####[address] , [facility] Lymphocytes/100 leukocytes 15 % Low 24-43 [facility] Comment on above: Performed By: #### C DP, CP, LIP ####[address] , [place] [address] MCH 31.6 pg Normal 25.2-33.5 [facility] Comment on above: Performed By: #### C DP, CP, LIP ####[address] [place] [id number] MCHC mass conc (RBC) 35.3 g/dL High 28.4-34.8 [facility] Comment on above: Performed By: #### C DP, CP, LIP ####[address] [place] [address] MCV 89.6 fL Normal 82.6-102.9 [facility] Comment on above: Performed By: #### C DP, CP, LIP ####[address] [place] [address] Monocytes 1.36 10*3/uL High 0.10-1.20 [facility] Comment on above: Performed By: #### C DP, CP, LIP ####[address] [place] [address] Monocytes/100 leukocytes 16 % High 3-12 [facility] Comment on above: Performed By: #### C DP, CP, LIP ####[address] [place] [address] Neutrophil (Seg) 61 % Normal 36-65 [facility] Comment on above: Performed By: #### C DP, CP, LIP ####[address] [place] [address] Platelet mean volume (PMV) 10.5 fL Normal 8.1-13.5 [facility] Comment on above: Performed By: #### C DP, CP, LIP ####[address] [place] [address] Platelets 186 10*3/uL Normal 138-453 [facility] Comment on above: Performed By: #### C DP, CP, LIP ####[address] [place] [address] WBC (Leukocytes) 8.7 10*3/uL Normal 3.5-11.3 [facility] Comment on above: Performed By: #### C DP, CP, LIP ####[address] [place] [address] Auto Diff Performed NOT REPORTED Normal [facility] Comment on above: Performed By: #### C DP, CP, LIP ####[address] [place] [address] Erythrocyte morphology NOT REPORTED Normal [facility] Comment on above: Performed By: #### C DP, CP, LIP ####[address] [place] [address] Platelets NOT REPORTED Normal [facility] Comment on above: Performed By: #### C DP, CP, LIP ####[address] [place] [address] WBC Morphology NOT REPORTED Normal [facility] Comment on above: Performed By: #### C DP, CP, LIP ####[address] [place] [address] Comp Metabolic Profon 2017 (cont.) Normal [facility] Comment on above: Result Comment: Aver age GFR for 50-59 years old: 93 mL/min/1.73sq mChronic Kidney Disease: <60 mL/min/1.73sq mKidney failure: <15 mL/min/1.73sq meGFR calculated using average adult body mass. Additional eGFR calculator available at:http://www.[employer]/multiple_crcl_2012.htm Performed By: #### C DP, CP, LIP ####[address] [place] [address] Alanine aminotransferase (ALT) 18 U/L Normal 5-41 [facility] Comment on above: Performed By: #### C DP, CP, LIP ####[address] [place] [address] Albumin 4.2 g/dL Normal 3.5-5.2 [facility] Comment on above: Performed By: #### C DP, CP, LIP ####[address] [place] [address] Albumin/Globulin Ratio 1.2 {ratio} Normal 1.0-2.5 [facility] Comment on above: Performed By: #### C DP, CP, LIP ####[address] [place] [address] Alkaline Phos 74 U/L Normal 40-129 [facility] Comment on above: Performed By: #### C DP, CP, LIP ####[address] [place] [address] Anion gap 16 mmol/L Normal 9-17 [facility] Comment on above: Performed By: #### C DP, CP, LIP ####[address] [place] [address] Aspartate aminotransferase (AST) 24 U/L Normal <40 [facility] Comment on above: Performed By: #### C DP, CP, LIP ####[address] [place] [address] Bilirubin Ql (U) 0.64 mg/dL Normal 0.3-1.2 [facility] Comment on above: Performed By: #### C DP, CP, LIP ####[address] [place] [address] BUN/CRE Ratio 15 Normal 9-20 [facility] Comment on above: Performed By: #### C DP, CP, LIP ####[address] [place] [address] Calcium 9.2 mg/dL Normal 8.6-10.4 [facility] Comment on above: Performed By: #### C DP, CP, LIP ####[address] [place] [address] Chloride 91 mmol/L Low 98-107 [facility] Comment on above: Performed By: #### C DP, CP, LIP ####[address] [place] [address] CO2 23 mmol/L Normal 20-31 [facility] Comment on above: Performed By: #### C DP, CP, LIP ####[address] [place] [address] Creatinine 0.94 mg/dL Normal 0.70-1.20 [facility] Comment on above: Performed By: #### C DP, CP, LIP ####[address] [place] [address] eGFR (non-black) mL/min/{1.73_m2} Normal >60 [facility] Comment on above: Performed By: #### C DP, CP, LIP ####[address] [place] [address] Glucose mass conc 113 mg/dL High 70-99 [facility] Comment on above: Performed By: #### C DP, CP, LIP ####[address] [place] [address] Potassium molar conc 4.8 mmol/L Normal 3.7-5.3 [facility] Comment on above: Performed By: #### C DP, CP, LIP ####[address] [place] [address] Protein 7.6 g/dL Normal 6.4-8.3 [facility] Comment on above: Performed By: #### C DP, CP, LIP ####[address] [place] [address] Sodium 130 mmol/L Low 135-144 [facility] Comment on above: Performed By: #### C DP, CP, LIP ####[address] [place] [address] Staging: Normal [facility] Comment on above: Result Comment: Stag e 1: Some kidney damage normal GFRStage 2: Mild kidney damage GFR 60-89Stage 3: Moderate kidney damage GFR 30-59Stage 4: Severe kidney damage GFR 15-29Stage 5: Severe kidney damage GFR <15ESRD - chronic treatment by dialysis or transplantPerformed at [address] [place] [address] Performed By: #### C DP, CP, LIP ####[address] [place] [address] Urea nitrogen 14 mg/dL Normal 6-20 [facility] Comment on above: Performed By: #### C DP, CP, LIP ####[address] [place] [address] Lipaseon 10-24-2017 Lipase 27 U/L Normal 13-60 [facility] Comment on above: Result Comment: Perf ormed at [address] [place] [address] Performed By: #### C DP, CP, LIP ####[address] [place] [address] Urinalysis w/ Microon 2017 ----- Normal [facility] Comment on above: Performed By: #### U AMIC ####[address] [place] [address] Acetaminophen mass conc 1+ Abnormal NEG [facility] Comment on above: Performed By: #### U AMIC ####[address] [place] [address] Bilirubin (direct) Negative Normal NEG [facility] Comment on above: Performed By: #### U AMIC ####[address] [place] [address] Hemoglobin mass conc (Bld) Negative Normal NEG [facility] Comment on above: Performed By: #### U AMIC ####[address] [place] [address] Nitrite,Ur Negative Normal NEG [facility] Comment on above: Performed By: #### U AMIC ####[address] [place] [address] Turbidity CLEAR Normal CLEAR [facility] Comment on above: Performed By: #### U AMIC ####[address] [place] [address] Urine WBC's 0 TO 2 Normal 0-5 [facility] Comment on above: Performed By: #### U AMIC ####[address] [place] [address] Urine, color YELLOW Normal YEL [facility] Comment on above: Performed By: #### U AMIC ####[address] [place] [address] Urine, epithelial cells in sediment 0 TO 2 Normal 0-5 [facility] Comment on above: Result Comment: Perf ormed at [address] [place] [address] Performed By: #### U AMIC ####[address] [place] [address] Urine, erythrocytes 0 TO 2 Normal 0-2 [facility] Comment on above: Performed By: #### U AMIC ####[address] [place] [address] Urine, glucose presence Negative Normal NEG [facility] Comment on above: Performed By: #### U AMIC ####[address] [place] [address] Urine, leukocyte esterase presence Negative Normal NEG [facility] Comment on above: Performed By: #### U AMIC ####[address] [place] [address] Urine, pH 6.5 [pH] Normal 5.0-9.0 [facility] Comment on above: Performed By: #### U AMIC ####[address] [place] [address] Urine, protein presence Negative Normal NEG [facility] Comment on above: Performed By: #### U AMIC ####[address] [place] [address] Urine, specific gravity <1.005 Low 1.010-1.020 [facility] Comment on above: Performed By: #### U AMIC ####[address] [place] [address] Urobilinogen,Ur Normal Normal NORM [facility] Comment on above: Performed By: #### U AMIC ####[address] [place] [address] Comment NOT REPORTED Normal [facility] Comment on above: Performed By: #### U AMIC ####[address] [place] [address] Epithelial, Renal NOT REPORTED Normal 0 [facility] Comment on above: Performed By: #### U AMIC ####[address] [place] [address] Mucus Strands NOT REPORTED Normal NONE [facility] Comment on above: Performed By: #### U AMIC ####[address] [place] [address] Other Observations NOT REPORTED Normal NREQ [facility] Comment on above: Performed By: #### U AMIC ####[address] [place] [address] Trichomonas NOT REPORTED Normal NONE [facility] Comment on above: Performed By: #### U AMIC ####[address] [place] [address] Urine, amorphous sediment presence in sediment NOT REPORTED Normal NONE [facility] Comment on above: Performed By: #### U AMIC ####[address] [place] [address] Urine, bacteria in sediment NOT REPORTED Normal NONE [facility] Comment on above: Performed By: #### U AMIC ####[facility] [place] [address] Urine, casts in sediment NOT REPORTED Normal [facility] Comment on above: Performed By: #### U AMIC ####[facility] [place] [address] Urine, crystals in sediment NOT REPORTED Normal NONE [facility] Comment on above: Performed By: #### U AMIC ####[facility] [place] [address] Urine, yeast presence in sediment NOT REPORTED Normal NONE [facility] Comment on above: Performed By: #### U AMIC ####[address] [place] [address] Discharge Summaryon 03-11-20 17 HIM IP Note OR Sox Analyst Normal [facility] Encounters Encounter Date Encounter Type Care Provider Facility Start: 03-01-2024 End: 03-01-2024 ambulatory MARIPOSA BANUELOS Not Available Start: 02-24-2024 End: 02-24-2024 ambulatory MARIPOSA BANUELOS Not Available Start: 02-06-2024 End: 02-06-2024 Patient encounter procedure PRIMO Jean Work Phone: [facility] [place] Work Phone: Start: 02-06-2024 End: 02-06-2024 ambulatory PRIMO Jean Work Phone: [facility] Work Phone: Start: 02-03-2024 End: 02-03-2024 ambulatory JAMAICA BORGES Not Available Start: 02-02-2024 End: 02-02-2024 ambulatory MARIPOSA BANUELOS Not Available Start: 01-20-2024 End: 01-20-2024 ambulatory MARIPOSA BANUELOS Not Available Start: 01-19-2024 End: 01-19-2024 ambulatory [facility] Start: 12-24-2023 End: 12-24-2023 ambulatory JAMAICA BORGES Not Available Start: 12-23-2023 End: 12-23-2023 ambulatory JAMAICA BORGES Not Available Start: 12-15-2023 Non-patient / Non-visit PRIMO Jean Work Phone: [facility] Work Phone: Start: 12-10-2023 End: 12-10-2023 ambulatory [facility] Start: 11-20-2018 End: 11-20-2018 Patient encounter procedure GEE JONES Facility:[facility] Start: 10-24-2017 End: 10-24-2017 Emergency department patient visit [facility] Start: 12-27-2016 End: 12-28-2016 [facility]ulatory [facility] Procedures Date Procedure Procedure Detail Performing Clinician Start: 02-06-2024 MRI of head PRIMO Jean Work Phone: Start: 10-24-2017 NURSING COMMUNICATION S RAINA LONG Start: 10-24-2017 URINALYSIS WITH MICROSCOPIC ANABEL LONG Start: 10-24-2017 URINE CULTURE ANABEL LACY Start: 10-24-2017 CBC WITH AUTO DIFFERENTIAL ANABEL LONG Start: 10-24-2017 COMPREHENSIVE METABO LIC PANEL ANABEL ETHAN Start: 10-24-2017 LIPASE ANABEL DELGADILLO Start: 10-24-[address] [facility] Payers Date Payer Category Payer Self-pay 2016 Unknown [id number] 2015 Unknown [id number] 1965 Unknown [id number] 2.16.8 [id number] 1965 Unknown [id number] 2.16.84 [id number] 1964 Unknown [id number] 2.16.84 [id number] 1964 Unknown [id number] 2.16.84 [id number] 1964 Unknown [id number] 2.16.84 [id number] 1964 Unknown [id number] 2.16.84 [id number] 1964 Unknown [id number] 2.16.84 [id number] 1964 Unknown [id number] 2.16.84 [id number] Unknown [id number] 2.16.8 [id number] Social History Date Type Detail Facility Tobacco smoking stat [facility] Unknown if ever smoked [facility] Work Phone: Start: 1965 Sex Assigned At Male [facility] Progress note 01-19-2024 Note Date & Type [...] a longtime smoker. He presented to [facility] last month for syncope. He [...] 06/25/2016 Normal si (more content not included)... [facility] Progress note 12-10-2023 Note Date & Type Note Facility 12-10-2023 Note [facility] Note Reason [...] a longtime smoker. He presented to [facility] last month for syncope. He [...] or tachyarrhythmias. Dys (more content not included)... [facility] Evaluation note Note Date & Type Note Facility Evaluation note No assessment information itzel barrios [facility] Work Phone: Summary Purpose Family History [...] [1] Hospital Course He ruled out for [place]. Chest x-ray was normal. Stress test was [...] section and content) DATE CREATED AUTHOR 12/25/2017 [facility] DATE CREATED AUTHOR AUTHOR'S ORGANIZ ATION 04/15/2019 [facility] DATE CREATED AUTHOR AUTHOR'S ORGANIZ ATION 01/22/2024 [facility] DATE CREATED AUTHOR AUTHOR'S ORGANIZ ATION 02/15/2024 [facility] DATE CREATED AUTHOR AUTHOR'S ORGANIZ ATION 03/03/2024 [facility] [employer] Care Teams (unrecognized sec tion and content) Team Status: Active Member Role Status Dates Emerald Jean APRN Primary Care Provider Active Team Status: Active Member Role Status Dates Ayanna Waldron MD Attending Provider Active Start: December 15, 2023 Team Status: Inactive Member Role Status Dates Jamaica Borges DO Attending Provider Active Start: February 06, 2024 End: February 06, 2024 Emeradl Jean APRN Primary Care Provider Active Start: [...] BE BASED ON THE PRIMARY CLINICAL RECORDS. [employer] provides no warranty or guarantee of the accuracy or completeness of information in this document.
[2024-03-10 12:07] LABS: Anion Gap 12.1; BUN Creatinine Ratio 17.7; Carbon Dioxide 26.8 mmol/L (21.0-32.0); Chloride 101 mmol/L (98-107); Estimated GFR (African America >60 (>=60); Estimated GFR (Non-African Ame >60 (>=60); Glucose 147 mg/dL (74-106); Potassium 4.9 mmol/L (3.5-5.1); Sodium 135 mmol/L (136-145)
== END 2024-03-10 09:32 | disposition home or self-care (01) ==
LOC: LAB 09:34
PROVIDERS: PCP Nurse Practitioner; Visit Provider Internal Medicine Cardiovascular Disease
DX: I10 Essential (primary) hypertension (principal)
CPT/HCPCS: 36415; 80048

== ENCOUNTER 2024-03-31 19:49 | Outpatient (OUT) | payer OTHER, SELFPAY ==
--- OUTSIDE RECORDS SUMMARY | 2024-03-31 19:51 | XMS_ITS | CCD ---
Author Organization [facility] Care Team Providers Care Assorter Name Role Phone ANABEL LONG Unavailable Unavailable LONG ANABEL C Unavailable Unavailable LONG, ANABEL C Unavailable Unavailable LONG, ANABEL C Unavailable Unavailable TAMMY CONTRERAS Unavailable Unavailable GEE JONES Admitting Unavailable GEE JONES Attending Unavailable DEION MONK Consulting Unavaila ble BV, Physician - Emergency Consulting Brooklyn Valentin, Kajal Consulting Unavailable DO Jamaica Borges Attending Provider PRIMO Jean Sarles Primary Care Provider ELISABETH LEE Attending Unavailable ELISABETH LEE Attending Unavailable ELISABETH LEE Attending Unavailable MD Ayanna Waldron Attending Provider Asaad, Imadonay Admitting Unavailable Asaadonay Imad Attending Unavailable [facility] Unavailable Jamaica Borges Admitting Unavailab Jamaica Pedraza Attending Unavailab [facility] Un[facility] JAMAICA BORGES Attending Unavailable JAMAICA BORGES Referring Unavailable MARIPOSA BANUELOS Attending Unavailable BANUELOSMARIPOSA Referring Unavailable JAMAICA BORGES Attending Unavailable BANUELOSMARIELAH Attending Unavailable BANUELOS, MARIPOSA Referring Unavailable BANUELOS, MARIPOSA Attending Unavailable BANUELOS MARIPOSA Referring Unavailable Allergies Allergy Classification Reported Allergen(s) Allergy Type Date of Onset Reaction(s) Facility (1 source) No Known Medication Allergies; Translations: [No Known Medication Allergies] Propensity to adverse reactions to drug (disorder) [facility] Repository (1 source) Hornet venom; Translations: [HORNET VENOM] Propensity to adverse reactions to drug (disorder) [facility] Repository (1 source) bee venom protein (honey bee) Drug allergy (disorder) [facility] Repository Medications Current Medications Medication Drug Class(es) Dates Sig (Normalized) Sig (Original) amLODIPine 10 mg / benazepril hydrochloride 20 mg oral capsule (2 sources) Dihydropyridine Calcium Channel Roseline, Angiotensin Converting Enzyme Inhibitor Start: 03-25-2024 take 1 capsule by mouth once daily Amlodipine-Benaz epril Active 1 CAP PO Daily March 25, 2024 12:00am 24 hr metoprolol succinate 25 mg extended release oral tablet (2 sources) beta-Adrenergic Roseline Start: 03-25-2024 take 25 mg by mouth once daily Metoprolol Succinate Active 25 MG PO Daily March 25, 2024 12:00am Tiotropium-Olodater ol (2 sources) Anticholinergic, beta2-Adrenergic Agonist Start: 03-25-2024 Tiotropium-Oloda terol (Stiolto Respimat) 2.5-2.5 mcg/actuation mist Active 2 PUFF INHALATION Daily March 25, 2024 12:00am Problems Active Problems Problem Classification Problem Date Documented Da te Episodic/Chronic Coma; stupor; and brain damage (1 source) Unspecified coma; Translations: [Unspecified coma] Onset: 02-06-2024 Episodic Essential hypertension (6 sources) Hypertensive disorder; Translations: [Essential (primary) hypertension] Onset: 01-19-2024 Chronic Hepatitis (7 sources) Acute type B viral hepatitis; Translations: [Acute hepatitis B without delta-agent and without hepatic coma] Onset: 03-25-2024 03-25-2024 Episodic Nausea and vomiting (1 source) Nausea with vomiting, unspecified; Translations: [Nausea with vomiting, unspecified] Onset: 10-24-2017 Episodic Noninfectious gastroenteritis (1 source) Noninfective gastroenteritis and colitis, unspecified; Translations: [Noninfective gastroenteritis and colitis, unspecified] Onset: 10-24-2017 Episodic Other gastrointestinal disorders (1 source) Diarrhea, unspecified; Translations: [Diarrhea, unspecified] Onset: 10-24-2017 Episodic Other liver diseases (2 sources) Elevated liver enzymes level; Translations: [Abnormal levels of other serum enzymes] 03-25-2024 Episodic Other liver diseases (2 sources) Abnormal levels of other serum enzymes; Translations: [Other nonspecific abnormal serum enzyme levels] 03-25-2024 Episodic Past or Other Problems Problem Classification Problem Date Documented Da te Episodic/Chronic Syncope (2 sources) Syncope and collapse; Translations: [Syncope and collapse] Onset: 12-10-2023 Episodic Results Test Name Value Interpretation Reference Range Facility Alanine aminotransferase [En zymatic activity/volume] in Serum or PlasmaOrdered By: Ayanna Waldron on 03-25-2024 ALT [Catalytic activity/Vol] 17 U/L 7-52 [facility] Comment on above: Performed By: #### H BCAB, HBeAG, HBEAB, HAABT, HAAB, HCBIGM, HCV RX PCR, HBSAG, CERULOP, HBV PCR, HBSAB #### [facility] , #### HEPATIC #### [facility] [address] [place] [address] Albumin [Mass/volume] in Ser um or Plasma by Bromocresol green (BCG) dye binding methoOrdered By: Ayanna Waldron on 03-25-2024 Albumin BCG dye [Mass/Vol] 4.7 g/dL 3.5-5.7 [facility] Alkaline phosphatase [Enzyma tic activity/volume] in Serum or PlasmaOrdered By: Ayanna Waldron on 03-25-2024 ALP [Catalytic activity/Vol] 73 U/L 34-104 [facility] Comment on above: Result Comment: PERF ORMED BY: [place] [address] PATHOLOGIST HVAC R TECH CECILY VILLAGRAN M.D. Performed By: #### H BCAB, HBeAG, HBEAB, HAABT, HAAB, HCBIGM, HCV RX PCR, HBSAG, CERULOP, HBV PCR, HBSAB #### [facility] , #### HEPATIC #### [facility] [address] [place] [address] [place] Aspartate aminotransferase [ Enzymatic activity/volume] in Serum or PlasmaOrdered By: Imadonay Waldron on 03-25-2024 AST [Catalytic activity/Vol] 16 U/L 13-39 [facility] Comment on above: Performed By: #### H BCAB, HBeAG, HBEAB, HAABT, HAAB, HCBIGM, HCV RX PCR, HBSAG, CERULOP, HBV PCR, HBSAB #### [facility] , #### HEPATIC #### [address] Bilirubin.direct [Mass/volum e] in Serum or PlasmaOrdered By: Imad Asaad on 03-25-2024 Bilirubin.direct [Mass/Vol] 0.10 mg/dL 0.03-0.18 [facility] Bilirubin.total [Mass/volume ] in Serum or PlasmaOrdered By: Imad Asaad on 03-25-2024 Bilirubin [Mass/Vol] 0.9 mg/dL 0.3-1.0 [facility] Comment on above: Performed By: #### H BCAB, HBeAG, HBEAB, HAABT, HAAB, HCBIGM, HCV RX PCR, HBSAG, CERULOP, HBV PCR, HBSAB #### [facility] , #### HEPATIC #### [address] Ceruloplasminon 03-25-2024 Ceruloplasmin 32.5 mg/dL High 16.0-31.0 [facility] Comment on above: Result Comment: Perf ormed at: - [facility] [address] [id number] Solvent Mixer: Prashanth Cat PhD, Phone: [phone] PERFORMED BY: [place] [address] PATHOLOGIST HVAC R TECH CECILY VILLAGRAN M.D. Performed By: #### H BCAB, HBeAG, HBEAB, HAABT, HAAB, HCBIGM, HCV RX PCR, HBSAG, CERULOP, HBV PCR, HBSAB #### [facility] , #### HEPATIC #### [address] HIV 1 and HIV-2 antibody ass ay with HIV-1 p24 antigen detectionOrdered By: Imad Asaad on 03-25-2024 HIV 1+2 Ab+HIV1 p24 Ag IA Ql Non-Reactive Non Reactive [facility] Comment on above: HIV-1/HIV-2 antibodi es and HIV-1 p24 antigen were NOTdetected. There is no laboratory evidence of HIV infection.HIV NegativePerformed at: [facility] [place] [id number] [place], [place] [id number] Director: Prashanth Cat PhD, Phone: [phone] Hep B Real-Time PCR, Quanton 03-25-2024 HBV As IU/mL Not detected Normal . [facility] Comment on above: Performed By: #### H BCAB, HBeAG, HBEAB, HAABT, HAAB, HCBIGM, HCV RX PCR, HBSAG, CERULOP, HBV PCR, HBSAB #### [facility] , #### HEPATIC #### [address] Log10 HBV (As IU/mL) Normal . [facility] Comment on above: Result Comment: Resu lt Units: log10 IU/mL Unable to calculate result since non-numeric result obtained for component test. Performed By: #### H BCAB, HBeAG, HBEAB, HAABT, HAAB, HCBIGM, HCV RX PCR, HBSAG, CERULOP, HBV PCR, HBSAB #### [facility] , #### HEPATIC #### [address] Test Information: Comment Normal . [facility] Comment on above: Result Comment: The reportable range for this assay is 10 IU/mL to 1 billion IU/mL. Performed at: - [facility] [id number] Solvent Mixer: Girish Kay MD, Phone: [phone] PERFORMED BY: [place] [address] PATHOLOGIST HVAC R TECH CECILY VILLAGRAN M.D. Performed By: #### H BCAB, HBeAG, HBEAB, HAABT, HAAB, HCBIGM, HCV RX PCR, HBSAG, CERULOP, HBV PCR, HBSAB #### [facility] , #### HEPATIC #### [address] Hep C Ab wRfx to Qnt PCRon 0 03-25-2024 Hepatitis C Virus Antibody Non-Reactive Normal Non Reactive [facility] Comment on above: Performed By: #### H BCAB, HBeAG, HBEAB, HAABT, HAAB, HCBIGM, HCV RX PCR, HBSAG, CERULOP, HBV PCR, HBSAB #### [facility] , #### HEPATIC #### [address] Interpretation Hepatitis C Comment Normal . [facility] Comment on above: Result Comment: Not infected with HCV unless early or acute infection is suspected (which may be delayed in an immunocompromised individual), or other evidence exists to indicate HCV infection. Performed By: #### H BCAB, HBeAG, HBEAB, HAABT, HAAB, HCBIGM, HCV RX PCR, HBSAG, CERULOP, HBV PCR, HBSAB #### [facility] , #### HEPATIC #### [address] Hepatic Panelon 03-25-2024 Albumin [Mass/Vol] 4.7 g/dL Normal 3.5-5.7 [facility] Comment on above: Performed By: #### H BCAB, HBeAG, HBEAB, HAABT, HAAB, HCBIGM, HCV RX PCR, HBSAG, CERULOP, HBV PCR, HBSAB #### [facility] , #### HEPATIC #### [address] Bilirubin,Indirect 0.8 mg/dL Normal [facility] Comment on above: Performed By: #### H BCAB, HBeAG, HBEAB, HAABT, HAAB, HCBIGM, HCV RX PCR, HBSAG, CERULOP, HBV PCR, HBSAB #### [facility] , #### HEPATIC #### [address] Bilirubin.indirect [Mass/Vol] 0.10 mg/dL Normal 0.03-0.18 [facility] Comment on above: Performed By: #### H BCAB, HBeAG, HBEAB, HAABT, HAAB, HCBIGM, HCV RX PCR, HBSAG, CERULOP, HBV PCR, HBSAB #### [facility] , #### HEPATIC #### [address] Hepatitis A Antibody IgMon 0 03-25-2024 Hepatitis A Antibody IgM Negative Normal Negative [facility] Comment on above: Result Comment: A ne gative anti-HAV IgM result suggests no recent or current HAV infection. Performed By: #### H BCAB, HBeAG, HBEAB, HAABT, HAAB, HCBIGM, HCV RX PCR, HBSAG, CERULOP, HBV PCR, HBSAB #### [facility] , #### HEPATIC #### [address] Hepatitis A Antibody Totalon 03-25-2024 Hepatitis A Antibody Total Negative Normal Negative [facility] Comment on above: Result Comment: Comm ent: The HAV total antibody assay detects both IgG and IgM but does not differentiate between them. A negative result suggests susceptibility to infection. A positive result could be due to vaccination, previously resolved infection or active infection. Testing for HAV IgM should be performed if active HAV infection is suspected. [facility] offers profiles that will automatically reflex positive HAV total antibody results to IgM (e.g., panel #[id number] HAV Antibody w/ Rfx). Performed By: #### H BCAB, HBeAG, HBEAB, HAABT, HAAB, HCBIGM, HCV RX PCR, HBSAG, CERULOP, HBV PCR, HBSAB #### [facility] , #### HEPATIC #### [address] Hepatitis A virus Ab [Presen ce] in Serum by ImmunoassayOrdered By: Ayanna Waldron on 03-25-2024 HAV Ab IA Ql (S) Negative Negative [facility] Comment on above: Comment: The HAV tot al antibody assay detects both IgG andIgM but does not differentiate between them. A negativeresult suggests susceptibility to infection. A positiveresult could be due to vaccination, previously resolvedinfection or active infection. Testing for HAV IgM shouldbe performed if active HAV infection is suspected. [facility] that will automatically reflex positive HAVtotal antibody results to IgM (e.g., panel #[id number] HAVAntibody w/ Rfx). Hepatitis B Core Antibodyon 03-25-2024 Hepatitis B Core Antibody Positive Critically abnormal Negative [facility] Comment on above: Performed By: #### H BCAB, HBeAG, HBEAB, HAABT, HAAB, HCBIGM, HCV RX PCR, HBSAG, CERULOP, HBV PCR, HBSAB #### [facility] , #### HEPATIC #### [facility] [address] [place] [address] Hepatitis B Core Antibody Ig Mon 03-25-2024 Hepatitis B Core Antibody IgM Negative Normal Negative [facility] Comment on above: Result Comment: Perf ormed at: - [facility] [place] [id number] Solvent Mixer: Prashanth Cat PhD, Phone: [phone] Performed By: #### H BCAB, HBeAG, HBEAB, HAABT, HAAB, HCBIGM, HCV RX PCR, HBSAG, CERULOP, HBV PCR, HBSAB #### [facility] , #### HEPATIC #### [facility] [address] [place] [address] Hepatitis B Surface Antibody on 03-25-2024 Hepatitis B Surface Antibody Reactive Normal . [facility] Comment on above: Result Comment: Non Reactive: Not immune to HBV infection. Equivocal: Unable to determine if anti-HBs is present at levels consistent with immunity. Reactive: Anti-HBs concentration detected at greater than 10 mIU/mL. Individual is considered to be immune to infection with HBV. Performed By: #### H BCAB, HBeAG, HBEAB, HAABT, HAAB, HCBIGM, HCV RX PCR, HBSAG, CERULOP, HBV PCR, HBSAB #### [facility] , #### HEPATIC #### [facility] [address] [place] [address] Hepatitis B Surface Antigeno n 03-25-2024 HBsAg Screen Negative Normal Negative [facility] Comment on above: Result Comment: PERF ORMED BY: [place] [address] PATHOLOGIST HVAC R TECH CECILY VILLAGRAN M.D. Performed By: #### H BCAB, HBeAG, HBEAB, HAABT, HAAB, HCBIGM, HCV RX PCR, HBSAG, CERULOP, HBV PCR, HBSAB #### [facility] , #### HEPATIC #### [address] Hepatitis B virus surface Ab [Presence] in SerumOrdered By: Imad Asaad on 03-25-2024 HBV surface Ab Ql (S) Reactive . [facility] Comment on above: Non Reactive: Not im mune to HBV infection. Equivocal: Unable to determine if anti-HBs is present at levels consistent with immunity. Reactive: Anti-HBs concentration detected at greater than 10 mIU/mL. Individual is considered to be immune to infection with HBV. Hepatitis B virus surface Ag [Presence] in Serum or Plasma by ImmunoassayOrdered By: Imad Asaad on 03-25-2024 HBV surface Ag IA Ql Negative Negative [facility] Hepatitis Be Antibodyon 03-07 Hepatitis Be Antibody Reactive Critically abnormal Negative [facility] Comment on above: Performed By: #### H BCAB, HBeAG, HBEAB, HAABT, HAAB, HCBIGM, HCV RX PCR, HBSAG, CERULOP, HBV PCR, HBSAB #### [facility] , #### HEPATIC #### [facility] [address] [place] [address] Hepatitis Be Antigenon 03-25 Hepatitis Be Antigen Negative Normal Negative [facility] Comment on above: Performed By: #### H BCAB, HBeAG, HBEAB, HAABT, HAAB, HCBIGM, HCV RX PCR, HBSAG, CERULOP, HBV PCR, HBSAB #### [facility] , #### HEPATIC #### [facility] [address] Hepatitis C virus IgG Ab [Pr esence] in Serum or Plasma by ImmunoassayOrdered By: Ayanna Waldron on 03-25-2024 HCV IgG IA Ql Non-Reactive Non Reactive [facility] No Panel InformationOrdered By: Ayanna Waldron on 03-25-2024 Hepatitis A IgM Antibody Negative Negative [facility] Comment on above: A negative anti-HAV IgM result suggests no recent orcurrent HAV infection. Hepatitis B Core IgM Antibody Negative Negative [facility] Comment on above: Performed at: [facility] [id number] Director: Prashanth Cat PhD, Phone: [phone] Hepatitis B Core Total Antibody Positive Abnormal Negative [facility] Hepatitis B DNA Test Information Comment . [facility] Comment on above: The reportable range for this assay is 10 IU/mL to 1billion IU/mL.Performed at: [facility] [id number] Director: Girish Kay MD, Phone: [phone] Hepatitis C Interpretation Comment . [facility] Comment on above: Not infected with HC V unless early or acute infection issuspected (which may be delayed in an immunocompromisedindividual), or other evidence exists to indicate HCVinfection. Protein [Mass/volume] in Ser um or PlasmaOrdered By: Ayanna Waldron on 03-25-2024 Protein [Mass/Vol] 7.7 g/dL 6.4-8.9 [facility] Comment on above: Performed By: #### H BCAB, HBeAG, HBEAB, HAABT, HAAB, HCBIGM, HCV RX PCR, HBSAG, CERULOP, HBV PCR, HBSAB #### [facility] , #### HEPATIC #### [facility] [address] Qualitative serum or plasma hepatitis B virus e antibody by enzyme immunoassayOrdered By: Ayanna Waldron on 03-25-2024 HBV e Ab IA Ql Reactive Abnormal Negative [facility] Serum globulin measurement b y calculation (mass/volume)Ordered By: Ayanna Waldron on 03-25-2024 Globulin (S) [Mass/Vol] 3.0 g/dL [facility] Comment on above: Performed By: #### H BCAB, HBeAG, HBEAB, HAABT, HAAB, HCBIGM, HCV RX PCR, HBSAG, CERULOP, HBV PCR, HBSAB #### [facility] , #### HEPATIC #### [facility] [address] [place] [address] Serum hepatitis B virus e an tigen detection by enzyme immunoassayOrdered By: Ayanna Waldron on 03-25-2024 HBV e Ag IA Ql Negative Negative [facility] Serum or plasma albumin/glob ulin mass ratioOrdered By: Ayanna Waldron on 03-25-2024 Albumin/Globulin [Mass ratio] 1.6 {ratio} [facility] Comment on above: Performed By: #### H BCAB, HBeAG, HBEAB, HAABT, HAAB, HCBIGM, HCV RX PCR, HBSAG, CERULOP, HBV PCR, HBSAB #### [facility] , #### HEPATIC #### [facility] [address] [place] [address] Serum or plasma ceruloplasmi n measurement (mass/volume)Ordered By: Ayanna Waldron on 03-25-2024 Ceruloplasmin [Mass/Vol] 32.5 mg/dL High 16.0-31.0 [facility] Comment on above: Performed at: - [place] [id number] Director: Prashanth Cat PhD, Phone: [phone] Serum or plasma hepatitis B virus DNA measurement (units/volume) (viral load) by probOrdered By: Ayanna Waldron on 03-25-2024 HBV DNA CHAUNCEY+probe Qn Not detected . [facility] Serum or plasma hepatitis B virus DNA viral load by probe and target amplification meOrdered By: Ayanna Waldron on 03-25-2024 HBV DNA CHAUNCEY+probe [#/Vol] N/A [facility] HBV DNA CHAUNCEY+probe [Log units/Vol] See comment . [facility] Comment on above: Result Units: log10 IU/mLUnable to calculate result since non-numeric resultobtained for component test. Serum or plasma non-glucuron idated bilirubin measurement (mass/volume)Ordered By: Imad Asaad on 03-25-2024 Bilirubin.indirect [Mass/Vol] 0.8 mg/dL [facility] 36on 03-10-[address] Lee, regarding patient's blood pressure log that is scanned into media: Patient's blood pressure appears to be much better but still occasionally high in the morning therefore asked him to take Toprol XL in the evening and lisinopril/amlodipine in the morning and continue to check his blood pressure twice a day and to contact me if it remains high in the morning. Patient notified and verbalized understanding. Felicity Bailon MA [facility] Office Visiton 03-10-2024 Follow-up visit [id number] Ahsan Rivas 1965 M Date Provider Department Center 03/10/2024 ELISABETH BOOTH Family History Problem Relation Age of Onset Cancer Mother COPD Father Family Status - Relation Status Age at Mother Father Level of Service:06936 [place] OFFICE/OUTPATIENT ESTABLISHED MOD MDM 30 MIN Reason for Visit and Comments: Hypertension [695110] - Pt is here for a six to [address] [facility] MR head/brain wo/w [facility] MR head/brain wo/w [facility] [place] [address] MRI Report Signed Patient: Ahsan Rivas MR#: [id number] : 1965 Acct:[id number] Age/Sex: 58 / M ADM Date: 02/06/24 Loc: MR Room: Type: [facility] Attending Dr: Jamaica Borges DO Copies [...] Rey Jr., D.O.02/06/2024 7:24 PM Dictation Location: [place] [address] Transcribed By: [facility] 02/06/241923 Dictated By: Shiva Rey Jr, DO 02/06/241920 Signed By: 02/06/241923 Normal [facility] Office Visiton 01-19-2024 Follow-up visit [id number] Ahsan Rivas 1965 M Date Provider Department Center 01/19/2024 15180-BDKWVEELISABETH LEE Family History Problem Relation Age of Onset Cancer Mother COPD Father Family Status - Relation Status Age at Mother Father Level of Service:60625 [place] OFFICE/OUTPATIENT ESTABLISHED MOD MDM 30 MIN Normal [facility] 36on 01-15-2024 36 Regarding echo resul t from 01/07/2024: MD Mariposa Shetty MA Please notify patient his echo appears to be normal. Continue current management. Thank you Attempted to call patient's home #. The automated system said this line was currently suspended. I then called the cell # twice and it was busy. Normal [facility] 36on 12-16-2023 36 Regarding lab result s from 12/12/2023: MD Mariposa Shetty MA Notify patient that his lipids shows mildly elevated LDL cholesterol, follow low-fat diet. His TSH and a.m. cortisol level are normal Spoke with patient's and made her aware. Normal [facility] Orders Onlyon 12-11-2023 Orders Only [id number] Ahsan Rivas A 1965 M Date Provider Department Center 12/11/2023 895-KAITLIN MONROY Family History Problem Relation Age of Onset Cancer Mother COPD Father Family Status - Relation Status Age at Mother Father Normal [facility] Office Visiton 12-10-2023 Follow-up visit [id number] Ahsan Rivas A 1965 M Date Provider Department Center 12/10/2023 [id number]-TNTGFGELISABETH LARKIN Family History Problem Relation Age of Onset Cancer Mother COPD Father Family Status - Relation Status Age at Mother Father Level of Service:47395 [place] OFFICE/OUTPATIENT NEW MODERATE MDM 45 MINUTES Normal [facility] Family Medicine Office/Clini c Noteon 11-27-2018 Family [...] qualifying data available (MRI) Electronically signed by Guille Khan PA-C 11/27/18 15:46 EDT Normal [facility] .eGFRon 11-20-2018 eGFR AA >60 Normal >=60 [facility] Comment on above: Result Comment: Resu lt = 0-14.9 mL/min/1.73 m2 Kidney failure or Dialysis Result = 15-29 mL/min/1.73 m2 Severe decrease in GFR Result = 30-59 mL/min/1.73 m2 Moderate decrease in GFR Result >= 60 mL/min/1.73 m2 Normal or increased GFR Performed By: #### E GFR #### [address] [address] eGFR Non-AA >60 Normal >=60 [facility] Comment on above: Result Comment: Resu lt [...] dosing. Performed By: #### E GFR #### [address] [address] AMI 2Hron 11-20-2018 2 Hour Myoglobin 22.0 ng/mL Normal 17.4-105.7 [facility] Comment on above: Performed By: #### C BC #### [address] [address] Troponin I.cardiac [Mass/Vol] ng/mL Normal 0.00-0.03 [facility] Comment on above: Result Comment: An i ncreased Troponin-I value, in the absence of myocardial ischemia, may indicate other etiologies of cardiac damage. Performed By: #### C BC #### [address] [address] AMI Initon 11-20-2018 Initial Myoglobin 29.0 ng/mL Normal 17.4-105.7 [facility] Comment on above: Performed By: #### A MI1 #### [address] [address] Troponin I.cardiac [Mass/Vol] ng/mL Normal 0.00-0.03 [facility] Comment on above: Result Comment: An i ncreased Troponin-I value, in the absence of myocardial ischemia, may indicate other etiologies of cardiac damage. Performed By: #### A MI1 #### [address] [address] [id number] 11-20-2018 6 Hour Myoglobin 27.0 ng/mL Normal 17.4-105.7 [facility] Comment on above: Performed By: #### C BC #### [address] [address] Troponin I.cardiac [Mass/Vol] ng/mL Normal 0.00-0.03 [facility] [facility] Comment on above: Result Comment: An i ncreased Troponin-I value, in the absence of myocardial ischemia, may indicate other etiologies of cardiac damage. Performed By: #### C BC #### [address] [address] Basic Metabolic Profileon Anion gap [Moles/Vol] 14 mmol/L Normal 7-17 [facility] Comment on above: Performed By: #### C [id number] #### [address] [address] Calcium [Mass/Vol] 8.7 mg/dL Normal 8.5-10.3 [facility] Comment on above: Performed By: #### C [id number] #### [address] [address] Chloride [Moles/Vol] 105 mmol/L Normal 98-110 [facility] Comment on above: Performed By: #### C [id number] #### [address] [address] CO2 [Moles/Vol] 22 mmol/L Normal 22-32 [facility] Comment on above: Performed By: #### C [id number] #### [address] [address] Creatinine [Mass/Vol] 0.70 mg/dL Normal 0.61-1.24 [facility] Comment on above: Performed By: #### C [id number] #### [address] [address] Glucose [Mass/Vol] 100 mg/dL Normal 74-118 [facility] Comment on above: Performed By: #### C [id number] #### [address] [address] Potassium [Moles/Vol] 4.4 mmol/L Normal 3.4-4.8 [facility] Comment on above: Performed By: #### C [id number] #### [address] [address] Sodium [Moles/Vol] 137 mmol/L Normal 133-142 [facility] Comment on above: Performed By: #### C [id number] #### [address] [address] Urea nitrogen [Mass/Vol] 13 mg/dL Normal 8-26 [facility] Comment on above: Performed By: #### C [id number] #### [address] [address] Urea nitrogen/Creatinine [Mass ratio] 18.6 mg/mg Normal 10.0-20.0 [facility] Comment on above: Performed By: #### C [id number] #### [address] [address] CBC w/ Diffon 11-20-2018 Erythrocyte distribution width (RBC) [Ratio] 13.0 % Normal 11.6-14.8 [facility] Comment on above: Performed By: #### C BC #### [address] [address] Hematocrit (Bld) [Volume fraction] 46.3 % Normal 41.0-53.0 [facility] Comment on above: Performed By: #### C BC #### [address] [address] Hemoglobin (Bld) [Mass/Vol] 15.8 g/dL Normal 13.5-17.5 [facility] Comment on above: Performed By: #### C BC #### [address] [address] MCH (RBC) [Entitic mass] 32.5 pg Normal 27.0-35.0 [facility] Comment on above: Performed By: #### C BC #### [address] [address] MCHC (RBC) [Mass/Vol] 34.1 % Normal 31.0-37.0 [facility] Comment on above: Performed By: #### C BC #### [address] [address] MCV (RBC) [Entitic vol] 95.3 fL Normal 80.0-100.0 [facility] Comment on above: Performed By: #### C BC #### [address] [address] Platelet mean volume (Bld) [Entitic vol] 8.6 fL Normal 6.7-10.6 [facility] Comment on above: Performed By: #### C BC #### [address] [address] Platelets (Bld) [#/Vol] 202 x10*3/mcL Normal 150-350 [facility] Comment on above: Performed By: #### C BC #### [address] [address] RBC (Bld) [#/Vol] 4.86 x10*6/mcL Normal 4.30-5.80 [facility] Comment on above: Performed By: #### C BC #### [address] [address] WBC (Bld) [#/Vol] 12.8 x10*3/mcL High 4.5-11.0 [facility] Comment on above: Performed By: #### C #### [facility] [address] [place] [address] Cardiology Consultationon Cardiology Consultation Chief Complaint dyspnea [...] No qualifying data available. Electronically signed by Aleshia BEDOLLA, Deion Flynn 11/20/18 16:18 EDT Normal [facility] Office Auditor Progress Noteon 11-20-2018 Office Auditor Progress Note ROSA met with patient before huddles today. He is new to the floor from ER for chest pain. he is asking to go home since unable to do a stress test today. ROSA will update RN, educated patient on remaining in the hospital while labs are trending for NC. He does have insurance, independent with adl's, [...] needed. discussed in huddle. Electronically signed by Leidy Chapin 11/20/18 12:23 EDT Recieved a call back from Dr. quintana receptionist secretary. Upon discussion, we reviewed patient listed as a self-pay, however, patient informed CM earlier he has insurance, so will need to verify & call back, but Dr. Quintana will accept if insurance accepted. Electronically signed by Leidy Chapin 11/20/18 14:21 EDT CM knocked [...] established. Refuses to speak to financial services professional when CM offered. Offered self pay education pamphlet as well, pt refuses stating he will get it figured out. CM put financial assistance program in chart for Discharge. Electronically signed by Leidy Chapin 11/20/18 14:32 EDT Normal [facility] D-Dimeron 11-20-2018 Fibrin D-dimer FEU IA (Bld) [Mass/Vol] 0.34 mg/L feu Normal 0.00-0.49 [facility] Comment on above: Result Comment: Resu lts of the D-Dimer test should always be interpreted in conjunction with the patient's medical history, clinical presentation, and other findings. Results <0.5 mg/L are considered NEGATIVE for VTE. Results >= 0.5 mg/L require further clinical evaluation. Levels of triglyceride up to 600 mg/dl do not interfere with this D-Dimer assay. Performed By: #### D TRACY #### [address] [address] Diff Autoon 11-20-2018 Baso Absolute 0.1 x10*3/mcL Normal 0.0-0.2 [facility] Comment on above: Performed By: #### . Automated Diff #### [address] [address] Basophils/100 WBC (Bld) 0.8 % Normal 0.0-1.2 [facility] Comment on above: Performed By: #### . Automated Diff #### [address] [address] Eos Absolute 0.2 x10*3/mcL Normal 0.0-0.4 [facility] Comment on above: Performed By: #### . Automated Diff #### [address] [address] Eosinophils/100 WBC (Bld) 1.9 % Normal 0.0-6.1 [facility] Comment on above: Performed By: #### . Automated Diff #### [address] [address] Lymphocytes (Bld) [#/Vol] 3.5 x10*3/mcL Normal 1.0-4.8 [facility] Comment on above: Performed By: #### . Automated Diff #### [address] [address] Lymphocytes/100 WBC (Bld) 27.3 % Normal 27.2-40.8 [facility] Comment on above: Performed By: #### . Automated Diff #### [address] [address] [place] Absolute 0.9 x10*3/mcL Normal 0.3-1.1 [facility] Comment on above: Performed By: #### . Automated Diff #### [address] [address] Monocytes/100 WBC (Bld) 6.9 % Normal 4.7-13.9 [facility] Comment on above: Performed By: #### . Automated Diff #### [place] [id number] Neutro Absolute 8.1 x10*3/mcL High 1.8-7.7 [facility] Comment on above: Performed By: #### . Automated Diff #### [place] [address] Neutro Auto 63.1 % Normal 47.2-70.8 [facility] Comment on above: Performed By: #### . Automated Diff #### [address] [address] ED Clinical Summaryon 2018 ED Clinical Summary [place] [id number] ED Clinical Summary Person Information Name: Ahsan Rivas Iraida/[facility] Age: 53 Years : 1965 Sex: Male PCP: Marital Status: Single Phone: Race: White Ethnicity: Not or Language: Afghan Visit Reason: Dyspnea; Chest pain - Cardiac Acuity: 2 Enc Type: Observation Med Service: Emergency Medicine Arrival: 11/20/2018 07:05:00 Discharge: LOS: 000 01:54 Checkin: 11/20/2018 07:05:00 Checkout: 11/20/2018 08:59:41 Dispo Type: Admitted to ICU Address: [address] [place] [address] Provider Notes: History of Present Illness Patient [...] Exam negative for acute changes, CVA tenderness. Musculoskeletal/extrem ity: Extremities: all appear grossly normal, with no [...] range between ( 27.2 and 40.8 ) [place] Auto: 6.9 % -- Normal range between [...] range between ( 41.0 and 53.0 ) [place] Absolute: 0.9 x10 MCH: 32.5 pg -- [...] Care Unit, 11/20/18 8:37:00 EDT, Kaycee BEDOLLA, Gee Muniz, Kaycee BEDOLLA, Gee Muniz Request for Admit 11/20/18 8:34:00 EDT, 11/20/18 8:34:00 EDT, Coronary Care Unit, Jen Bey DO Patient Education Information: [facility] Poison Help line: . [facility] Hotline: [place] Tobacco Quit Line: [place], [place]) [address]: [phone] [place], [place]) [address]: [phone] [facility] [address] [place], [place]: [phone] [facility] ED Note-Nursingon 11-20-2018 ED Note-Nursing [place] Machine Operator obtained admission room - CCU charge nurse requests 10 minutes before transport Electronically signed by Rachel Sandra 11/20/18 08:47 EDT [facility] ED Note-Physicianon 11-21-19 19 ED Note-Physician [...] Exam negative for acute changes, CVA tenderness. Musculoskeletal/extrem ity: Extremities: all appear grossly normal, with no [...] in this document, created by the medical reviewer for me, accurately reflects the services I [...] from someone other than the patient: Reviewed [facility] EMR to see if recent visits or hospitalizations. Review and summarized past medical records if pertinent and available in [facility]: Data Interpretation: I have have reviewed returned data from lab. Clinically important interpretation is: CBC is unremarkable Basic Metabolic panel with normal renal function, no significant abnormality Coags normal Initial cardiac enzymes negative d-d-tracy neg EKG: EKG time: 0707 Rhythm:[normal sinus] Rate:88 [place]:[normal] QRS:81 QT interval:399 ST/T wave changes: No [...] 07:12 63.1 Lymph Auto 11/20/18 07:12 27.3 [place] Auto 11/20/18 07:12 6.9 Eos Auto 11/20/18 07:12 1.9 Basophil Auto 11/20/18 07:12 0.8 Neutro Absolute 11/20/18 07:12 8.1 High Lymph Absolute 11/20/18 07:12 3.5 [place] Absolute 11/20/18 07:12 0.9 Eos Absolute 11/20/18 [...] Resonance Imaging No qualifying data available (MRI) Suad Jones Electronically signed by Ramy Dooley DO 11/20/2018 08:35 EDT Normal [facility] History and Physicalon 11-20 History and Physical [...] 95.3 (11/20/18) Mean Platelet Volume: 8.6 (11/20/18) [place] Absolute: 0.9 (11/20/18) [place] Auto: 6.9 (11/20/18) Neutro Absolute: 8.1 (11/20/18) Neutro Auto: 63.1 (11/20/18) PT: 9.7 (11/20/18) PTT: 24.2 (11/20/18) RBC: 4.86 (11/20/18) RDW: 13.0 (11/20/18) Assessment/Plan 1. Chest pain Rule out NC Stress test Cardiology consult 2. Dyspnea Repeat [...] No qualifying data available. Electronically signed by Gee Jones MD 11/20/18 10:06 EDT Normal [facility] Inpatient Clinical Summaryon 11-20-2018 Inpatient Clinical Summary [address] [address] Clinical Summary Person Information Name: Ahsan Rivas Age: 53 Years : 1965 Sex: Male PCP: Marital Status: Single Phone: PCP: Race: White Ethnicity: Not or Language: Afghan Visit Id: Visit Reason: Dyspnea; Chest pain - Cardiac Speciality: Acuity: Enc Type: Observation Med Service: Emergency Medicine Arrival: 11/20/2018 07:05:00 Discharge: Dispo Type: Admitted to ICU Address: [address] [place] [address] Diagnosis: 1:Chest pain; 2:Dyspnea; 3:Palpitations; 4:Hypertension Discharged [...] range between ( 27.2 and 40.8 ) [place] Auto: 6.9 % -- Normal range between [...] range between ( 41.0 and 53.0 ) [place] Absolute: 0.9 x10 MCH: 32.5 pg -- [...] up: With: Address: When: Guille Khan [address] [facility], [address] [place] [phone] Business (1) 11/27/2018 15:00:00 Comments: Appointment Scheduled Type Location Start [facility] New Patient Visit 30 Jourdan Redman 11/27/2018 15:00:00 11/27/2018 15:30:00 Confirmed Normal [facility] NM CARDIOLITE W/EXER STRESSo n 11-20-2018 NM [...] peak heart rate and blood pressure [place] [address] mm Hg/min. Stress ECG: The stress ECG [...] in Other Vendor System) Normal [facility] PTon 11-20-2018 INR Coag (PPP) [Relative time] 0.9 {INR} Normal <=3.5 [facility] Comment on above: Result Comment: INR has no normal range. INR Therapeutic range is: 2.0-3.0 (AF, CVA, TIAs, DVT prophylaxis, acute DVT) 2.5-3.5 ([facility] heart valves, recurrent thrombosis/emboli) Performed By: #### P TINR #### [address] [address] PT Coag (PPP) [Time] 9.7 s Normal 9.2-11.7 [facility] Comment on above: Performed By: #### P TINR #### [address] [address] PTTon 11-20-2018 aPTT Coag (Bld) [Time] 24.2 s Normal 20.6-27.7 [facility] Comment on above: Performed By: #### P TT #### [facility] [address] [place] [address] XR Chest 1 Viewon 11-20-2018 XR Chest [...] in Other Vendor System) Normal [facility] XR Chest 2 Viewson 9 XR Chest [...] in Other Vendor System) Normal [facility] Cult,Urineon 10-25-2017 Cult,Urine Specimen Description .CLEAN CATCH URINE Performed at [address] [place] [address] Special Requests NOT REPORTEDCulture NO GROWTH Performed at [place] [address] [place] [address] Report Status FINAL 10/25/2017 Normal [facility] Comment on above: Performed By: #### U RC ####[place] [address] [place], [place] [phone] [place] [id number] CBC with Diffon 10-24-2017 Abs. Basophil 0.05 k/uL Normal 0.00-0.20 [facility] Comment on above: Performed By: #### C DP, CP, LIP ####[address] , [id number] Abs.Neutrophil (Seg) 5.37 k/uL Normal 1.50-8.[address] [facility] Comment on above: Performed By: #### C DP, CP, LIP ####[address] , [id number] Basophils/100 WBC Auto (Bld) 1 % Normal 0-2 [facility] Comment on above: Performed By: #### C DP, CP, LIP ####[address] [place] [address] Eosinophils 0.57 10*3/uL High 0.00-0.44 [facility] Comment on above: Performed By: #### C DP, CP, LIP ####[address] [place] [id number] Eosinophils/100 leukocytes 7 % High 1-4 [facility] Comment on above: Performed By: #### C DP, CP, LIP ####[address] [place] [id number] Erythrocyte distribution width Auto Ratio (RBC) 13.4 % Normal 11.8-14.4 [facility] Comment on above: Performed By: #### C DP, CP, LIP ####[address] [place] [address] Erythrocytes (RBC) 0.0 per 100 WBC Normal 0.0 M [facility] Comment on above: Performed By: #### C DP, CP, LIP ####[address] [place] [address] Erythrocytes (RBC) 5.69 10*6/uL Normal 4.21-5.[address] [facility] Comment on above: Performed By: #### C DP, CP, LIP ####[address] , [id number] Granulocytes/100 WBC (Bld) 0.04 k/uL Normal 0.00-0.30 [facility] Comment on above: Result Comment: Perf ormed at [address] [place] [address] Performed By: #### C DP, CP, LIP ####[address] [place] [address] Hematocrit (HCT) 51.0 % High 40.7-50.3 [facility] Comment on above: Performed By: #### C DP, CP, LIP ####[address] [place] [address] Hemoglobin mass conc (Bld) 18.0 g/dL High 13.0-17.0 [facility] Comment on above: Performed By: #### C DP, CP, LIP ####[address] [place] [address] Immature granulocytes #/vol (Bld) 1 % High 0 [facility] Comment on above: Performed By: #### C DP, CP, LIP ####[address] [place] [address] Lymphocytes 1.35 10*3/uL Normal 1.10-3.70 [facility] Comment on above: Performed By: #### C DP, CP, LIP ####[address] , [place] [address] Lymphocytes/100 leukocytes 15 % Low 24-43 [facility] Comment on above: Performed By: #### C DP, CP, LIP ####[address] , [place] [address] MCH 31.6 pg Normal 25.2-33.5 [facility] Comment on above: Performed By: #### C DP, CP, LIP ####[address] , [place] [address] MCHC mass conc (RBC) 35.3 g/dL High 28.4-34.[address] [facility] Comment on above: Performed By: #### C DP, CP, LIP ####[address] , [place] [address] MCV 89.6 fL Normal 82.6-102.9 [facility] Comment on above: Performed By: #### C DP, CP, LIP ####[address] , [id number] Monocytes 1.36 10*3/uL High 0.10-1.20 [facility] Comment on above: Performed By: #### C DP, CP, LIP ####[address] , [place] [address] Monocytes/100 leukocytes 16 % High 3-12 [facility] Comment on above: Performed By: #### C DP, CP, LIP ####[address] , [place] [address] Neutrophil (Seg) 61 % Normal 36-65 [facility] Comment on above: Performed By: #### C DP, CP, LIP ####[address] , [place] [address] Platelet mean volume (PMV) 10.5 fL Normal 8.1-13.5 [facility] Comment on above: Performed By: #### C DP, CP, LIP ####[address] [place] [address] Platelets 186 10*3/uL Normal 138-453 [facility] Comment on above: Performed By: #### C DP, CP, LIP ####[address] [place] [address] WBC (Leukocytes) 8.7 10*3/uL Normal 3.5-11.3 [facility] Comment on above: Performed By: #### C DP, CP, LIP ####[address] [place] [address] Auto Diff Performed NOT REPORTED Normal [facility] Comment on above: Performed By: #### C DP, CP, LIP ####[address] [place] [address] Erythrocyte morphology NOT REPORTED Normal [facility] Comment on above: Performed By: #### C DP, CP, LIP ####[address] [place] [address] Platelets NOT REPORTED Normal [facility] Comment on above: Performed By: #### C DP, CP, LIP ####[address] [place] [address] WBC Morphology NOT REPORTED Normal [facility] Comment on above: Performed By: #### C DP, CP, LIP ####[address] [place] [address] Comp Metabolic Profon 2017 (cont.) Normal [facility] Comment on above: Result Comment: Aver age GFR for 50-59 years old: 93 mL/min/1.73sq mChronic Kidney Disease: <60 mL/min/1.73sq mKidney failure: <15 mL/min/1.73sq meGFR calculated using average adult body mass. Additional eGFR calculator available at:http://[email or web address]/multiple_crcl_2012.htm Performed By: #### C DP CP, LIP ####[address] [place] [address] Alanine aminotransferase (ALT) 18 U/L Normal 5-41 [facility] Comment on above: Performed By: #### C DP, CP, LIP ####[address] [place] [address] Albumin 4.2 g/dL Normal 3.5-5.2 [facility] Comment on above: Performed By: #### C DP CP, LIP ####[address] [place] [address] Albumin/Globulin Ratio 1.2 {ratio} Normal 1.0-2.5 [facility] Comment on above: Performed By: #### C DP, CP, LIP ####[address] [place] [address] Alkaline Phos 74 U/L Normal 40-129 [facility] Comment on above: Performed By: #### C DP, CP, LIP ####[address] [place] [address] Anion gap 16 mmol/L Normal 9-17 [facility] Comment on above: Performed By: #### C DP, CP, LIP ####[address] [place] [address] Aspartate aminotransferase (AST) 24 U/L Normal <40 [facility] Comment on above: Performed By: #### C DP, CP, LIP ####[address] [place] [address] Bilirubin Ql (U) 0.64 mg/dL Normal 0.3-1.2 [facility] Comment on above: Performed By: #### C DP, CP, LIP ####[address] [place] [address] BUN/CRE Ratio 15 Normal 9-20 [facility] Comment on above: Performed By: #### C DP, CP, LIP ####[address] [place] [address] Calcium 9.2 mg/dL Normal 8.6-10.4 [facility] Comment on above: Performed By: #### C DP, CP, LIP ####[address] [place] [address] Chloride 91 mmol/L Low 98-107 [facility] Comment on above: Performed By: #### C DP, CP, LIP ####[address] [place] [address] CO2 23 mmol/L Normal 20-31 [facility] Comment on above: Performed By: #### C DP, CP, LIP ####[address] [place] [address] Creatinine 0.94 mg/dL Normal 0.70-1.20 [facility] Comment on above: Performed By: #### C DP, CP, LIP ####[address] [place] [address] eGFR (non-black) mL/min/{1.73_m2} Normal >60 [facility] Comment on above: Performed By: #### C DP, CP, LIP ####[address] [place] [address] Glucose mass conc 113 mg/dL High 70-99 [facility] Comment on above: Performed By: #### C DP, CP, LIP ####[address] [place] [address] Potassium molar conc 4.8 mmol/L Normal 3.7-5.[address] [facility] Comment on above: Performed By: #### C DP, CP, LIP ####[address] [place] [address] Protein 7.6 g/dL Normal 6.4-8.3 [facility] Comment on above: Performed By: #### C DP, CP, LIP ####[address] [place] [address] Sodium 130 mmol/L Low 135-144 [facility] Comment on above: Performed By: #### C DP, CP, LIP ####[address] [place] [address] Staging: Normal [facility] Comment on above: Result Comment: Stag e 1: Some kidney damage normal GFRStage 2: Mild kidney damage GFR 60-89Stage 3: Moderate kidney damage GFR 30-59Stage 4: Severe kidney damage GFR 15-29Stage 5: Severe kidney damage GFR <15ESRD - chronic treatment by dialysis or transplantPerformed at [address] [place] [address] Performed By: #### C DP, CP, LIP ####[address] [place] [address] Urea nitrogen 14 mg/dL Normal 6-20 [facility] Comment on above: Performed By: #### C DP, CP, LIP ####[address] [place] [address] Lipaseon 10-24-2017 Lipase 27 U/L Normal 13-60 [facility] Comment on above: Result Comment: Perf ormed at [address] [place] [address] Performed By: #### C DP, CP, LIP ####[address] [place] [address] Urinalysis w/ Microon 2017 ----- Normal [facility] Comment on above: Performed By: #### U AMIC ####[address] [place] [address] Acetaminophen mass conc 1+ Abnormal NEG [facility] Comment on above: Performed By: #### U AMIC ####[address] [place] [address] Bilirubin (direct) Negative Normal NEG [facility] Comment on above: Performed By: #### U AMIC ####[address] [place] [address] Hemoglobin mass conc (Bld) Negative Normal NEG [facility] Comment on above: Performed By: #### U AMIC ####[address] [place] [address] Nitrite,Ur Negative Normal NEG [facility] Comment on above: Performed By: #### U AMIC ####[address] [place] [address] Turbidity CLEAR Normal CLEAR [facility] Comment on above: Performed By: #### U AMIC ####[address] [place] [address] Urine WBC's 0 TO 2 Normal 0-5 [facility] Comment on above: Performed By: #### U AMIC ####[address] [place] [address] Urine, color YELLOW Normal YEL [facility] Comment on above: Performed By: #### U AMIC ####[address] [place] [address] Urine, epithelial cells in sediment 0 TO 2 Normal 0-5 [facility] Comment on above: Result Comment: Perf ormed at [address] [place] [address] Performed By: #### U AMIC ####[address] [place] [address] Urine, erythrocytes 0 TO 2 Normal 0-2 [facility] Comment on above: Performed By: #### U AMIC ####[address] [place] [address] Urine, glucose presence Negative Normal NEG [facility] Comment on above: Performed By: #### U AMIC ####[address] [place] [address] Urine, leukocyte esterase presence Negative Normal NEG [facility] Comment on above: Performed By: #### U AMIC ####[address] [place] [address] Urine, pH 6.5 [pH] Normal 5.0-9.0 [facility] Comment on above: Performed By: #### U AMIC ####[address] [place] [address] Urine, protein presence Negative Normal NEG [facility] Comment on above: Performed By: #### U AMIC ####[address] [place] [address] Urine, specific gravity <1.005 Low 1.010-1.020 [facility] Comment on above: Performed By: #### U AMIC ####[address] [place] [address] Urobilinogen,Ur Normal Normal NORM [facility] Comment on above: Performed By: #### U AMIC ####[address] [place] [address] Comment NOT REPORTED Normal [facility] Comment on above: Performed By: #### U AMIC ####[address] [place] [address] Epithelial, Renal NOT REPORTED Normal 0 [facility] Comment on above: Performed By: #### U AMIC ####[address] [place] [address] Mucus Strands NOT REPORTED Normal NONE [facility] Comment on above: Performed By: #### U AMIC ####[address] [place] [address] Other Observations [facility]ED [facility] on above: Performed By: #### U AMIC ####[address] [place] [address] Trichomonas NOT REPORTED Normal NONE [facility] Comment on above: Performed By: #### U AMIC ####[address] [place] [address] Urine, amorphous sediment presence in sediment NOT REPORTED Normal NONE [facility] Comment on above: Performed By: #### U AMIC ####[address] [place] [address] Urine, bacteria in sediment NOT REPORTED Normal NONE [facility] Comment on above: Performed By: #### U AMIC ####[address] [place] [address] Urine, casts in sediment NOT REPORTED Normal [facility] Comment on above: Performed By: #### U AMIC ####[address] [place] [address] Urine, crystals in sediment NOT REPORTED Normal [facility] Comment on above: Performed By: #### U AMIC ####[address] [place] [address] Urine, yeast presence in sediment NOT REPORTED Normal [facility] Comment on above: Performed By: #### U AMIC ####[address] [place] [address] Discharge Summaryon 03-11-20 17 HIM IP Note OR Broadcast Chief Engineer Normal [facility] Vital Signs Date Time Vital Sign Value Performing Clinician Gerard freeman 03-25-2024 10:10-0400 Body height 177.8 cm PRIMO Corbin McNeal Work Phone: [facility] 03-25-2024 10:10-0400 Body mass index (BMI) [Ratio] 25.1 kg/m2 PRIMO Corbin Miranda Work Phone: [facility] 03-25-2024 10:10-0400 Body weight 79.37 kg PRIMO Corbin Miranda Work Phone: [facility] Encounters Encounter Date Encounter Type Care Provider Facility Start: 03-31-2024 End: 03-31-2024 ambulatory PRIMO Corbin Miranda Work Phone: [facility] Work Phone: Start: 03-31-2024 End: 03-31-2024 Patient encounter procedure PRIMO Corbin Miranda Work Phone: [facility] Work Phone: Start: 03-29-2024 End: 03-29-2024 ambulatory MARIPOSA BANUELOS Not Available Start: 03-25-2024 End: 03-25-2024 Patient encounter procedure PRIMO Corbin Miranda Work Phone: [facility] Work Phone: Start: 03-25-2024 End: 03-25-2024 ambulatory PRIMO Corbin Miranda Work Phone: [facility] Work Phone: Start: 03-25-2024 End: 03-25-2024 Patient encounter procedure PRIMO Corbin Miranda Work Phone: [facility] Work Phone: Start: 03-23-2024 End: 03-23-2024 ambulatory MARIPOSA BANUELOS Not Available Start: 03-10-2024 End: 03-10-2024 ambulatory [facility] Start: 03-04-2024 End: 03-04-2024 ambulatory JAMAICA BORGES Not Available Start: 03-01-2024 End: 03-01-2024 ambulatory MARIPOSA BANUELOS Not Available Start: 02-24-2024 End: 02-24-2024 ambulatory MARIPOSA BANUELOS Not Available Start: 02-06-2024 End: 02-06-2024 Patient encounter procedure PRIMO Corbin Miranda Work Phone: [facility] Work Phone: Start: 02-06-2024 End: 02-06-2024 ambulatory PRIMO Corbin Miranda Work Phone: [facility] Work Phone: Start: 02-03-2024 End: 02-03-2024 ambulatory CHRISTOPHER SHYANN Not Available Start: 02-02-2024 End: 02-02-2024 ambulatory MARIPOSA BANUELOS Not Available Start: 01-20-2024 End: 01-20-2024 ambulatory MARIPOSA BANUELOS Not Available Start: 01-19-2024 End: 01-19-2024 ambulatory [facility] Start: 12-24-2023 End: 12-24-2023 ambulatory CHRISTOPHER SHYANN Not Available Start: 12-23-2023 End: 12-23-2023 ambulatory CHRISTOPHER SHYANN Not Available Start: 12-15-2023 Non-patient / Non-visit PRIMO Corbin Miranda Work Phone: [facility] Work Phone: Start: 12-10-2023 End: 12-10-2023 ambulatory [facility] Start: 11-20-2018 End: 11-20-2018 Patient encounter procedure GEE JONES Facility:[facility] Start: 10-24-2017 End: 10-24-2017 Emergency department patient visit [facility] Start: 12-27-2016 End: 12-28-2016 Ambulatory [facility] Procedures Date Procedure Procedure Detail Performing Clinician Start: 03-31-2024 Ultrasound elastogra phy of liver HAND EMBROIDERER Emerald Miranda Work Phone: Start: 02-06-2024 MRI of head HAND EMBROIDERER Emerald Jean Work Phone: Start: 10-24-2017 NURSING COMMUNICATION S RAINA LONG Start: 10-24-2017 URINALYSIS WITH MICROSCOPIC ANABEL LONG Start: 10-24-2017 URINE CULTURE ANABEL LACY Start: 10-24-2017 CBC WITH AUTO DIFFERENTIAL ANABEL LONG Start: 10-24-2017 COMPREHENSIVE METABO LIC PANEL ANABEL LONG Start: 10-24-2017 LIPASE ANABEL DELGADILLO Start: 10-24-[address] [facility] Plan of Treatment Date Care Activity Detail Author Start: 03-31-2024 [facility] Start: 03-25-2024 Ceruloplasmin [Mass/ volume] in Serum or Plasma [facility] Start: 03-25-2024 Hepatitis A virus Ab [Presence] in Serum by Immunoassay [facility] Start: 03-25-2024 Hepatitis A virus an tibody, IgM type [facility] Start: 03-25-2024 Hepatitis B core ant ibody measurement [facility] Start: 03-25-2024 Hepatitis B core ant ibody measurement, IgM type [facility] Start: 03-25-2024 Hepatitis B virus e Ab [Presence] in Serum or Plasma by Immunoassay [facility] Start: 03-25-2024 Hepatitis B virus e Ag [Presence] in Serum or Plasma by Immunoassay [facility] Start: 03-25-2024 Hepatitis B virus palacios rface Ab [Presence] in Serum [facility] Start: 03-25-2024 Measurement of Hepat itis delta virus antibody [facility] Start: 03-25-2024 [facility] Alpha 1 antitrypsin [Mass/volume] in Serum or Plasma [facility] Alpha 1 antitrypsin phenotyping [Identifier] in Serum or Plasma by Immunofixation [facility] Hepatitis B virus DN A [#/volume] (viral load) in Serum or Plasma by CHAUNCEY with probe detection [facility] Hepatitis B virus DN A [log units/volume] (viral load) in Serum or Plasma by CHAUNCEY with probe detection [facility] Hepatitis B virus DN A [Units/volume] (viral load) in Serum or Plasma by CHAUNCEY with probe detection [facility] Hepatitis B virus palacios rface Ag [Presence] in Serum or Plasma by Immunoassay [facility] Hepatitis C virus Ig G Ab [Presence] in Serum or Plasma by Immunoassay [facility] HFE gene mutations f ound [Identifier] in Blood or Tissue by Molecular genetics method Nominal [facility] HIV 1+2 Ab+HIV1 p24 Ag [Presence] in Serum or Plasma by Immunoassay [facility] Payers Date Payer Category Payer Self-pay 2016 Unknown [id number] 2015 Unknown [id number] 1965 Unknown [id number] 2.16.8 [id number] 1965 Unknown [id number] 2.16.84 [id number] 1964 Unknown [id number] 2.16.84 [id number] 1964 Unknown [id number] 2.16.84 [id number] 1964 Unknown [id number] 2.16.84 [id number] 1964 Unknown [id number] 2.16.84 [id number] 1964 Unknown [id number] 2.16.84 [id number] 1964 Unknown [id number] 2.16.84 [id number] 1964 Unknown [id number] 2.16.84 0.1.924841.3.579.2.1259 1964 Unknown [id number] 2.16.84 0.1.142365.3.579.2.1259 1964 Unknown [id number] 2.16.84 0.1.170020.3.579.2.1259 Unknown [id number] 2.16.8 [id number] Unknown [id number] 2.16.8 [id number] Social History Date Type Detail Facility Tobacco smoking stat [facility] Unknown if ever smoked [facility] Work Phone: Start: 1965 Sex Assigned At Male F [facility] Goals Date Patient Goal Desired Activity /State Evaluation note 03-25-2024 Note Date & Type Note Facility 03-25-2024 Evaluation note Authored March 25, 2024 10:59am 58-year-old man referred to the liver clinic for evaluation of positive hepatitis B test. Patient had elevated liver enzymes and positive testing for hepatitis B in another institution few months ago. History of alcohol use for 40 years. -Will check viral hepatitis serologies and will check HBV DNA and HDV antibody -Will arrange for ultrasound liver -Will arrange for [employer] [facility] Work Phone: Progress note 03-10-2024 Note Date & Type Note Facility 03-10-2024 Note [facility] Note Reason for cardiology visit: Patient here for follow up on echo and 30 day event monitor. He is scheduled for sleep study on 02/18/2024. Chief Complaint: No complaints HPI: 03/10/2024 Patient reports that he has been doing well. He denies any chest pain at rest with exertion. His shortness of breath is much better. He Down on smoking. Denies orthopnea or paroxysmal nocturnal dyspnea. He denies any dizziness or palpitations or legs edema He states that he is cutting down on smoking, he has been drinking 1 beer every once a while. He follows low-salt diet. He is on steroid course for skin rash reaction and he took the last dose today. His home blood pressure has been good 01/19/2024 Ahsan Rivas is a 58 y.o. male [...] is a longtime smoker. He presented to [facility] ED last month for syncope. He [...] has no known allergies. Medications Current Outpatient Medications Medication Sig Dispense Refill amLODIPine-benazepriL (LotreL) 10-20 mg capsule Take 1 capsule by mouth in the morning. 30 capsule 11 metoprolol succinate XL (Toprol-XL) 50 mg 24 hr tablet Take 1 tablet (50 mg) by mouth once daily as directed. Do not crush or chew. (Patient taking differently: Take 25 mg by mouth once daily as directed. Do not crush or chew.) 90 tablet 3 blood pressure test kit-large kit 1 kit once daily as directed. 1 kit 0 No current facility-administered medications for this visit. Last Recorded Vitals Visit Vitals Visit Vitals BP 123/70 (BP Location: Right arm, Patient Position: Sitting) Pulse 62 Ht 1.778 m (5' 10 ) Wt 81.2 kg (179 lb) SpO2 96% BMI 25.68 kg/m??? Smoking Status Every Day [...] soft, nontender, nondistended. EXTREMITIES: no lower extremity edema. No rash/skin discoloration present. NEURO: strength/sensation equal and symmetric in b (more content not included)... [facility] Progress note 01-19-2024 Note Date & Type Note Facility 01-19-2024 Note [facility] Note Reason for cardiology [...] is a longtime smoker. He presented to [facility] ED last month for syncope. He [...] 06/25/2016 Normal si (more content not included)... [facility] Progress note 12-10-2023 Note Date & Type [...] is a longtime smoker. He presented to [facility] ED last month for syncope. He [...] or tachyarrhythmias. Dys (more content not included)... [facility] Evaluation note Note Date & Type Note Facility Evaluation note No assessment information [facility] Work Phone: Summary Purpose Family History No Family History Records FoundNo Family History Records FoundNo Family History Records FoundNo Family History Records FoundNo Family History Records Found Advance Directives Advance Directive Response Recorded Date/ Time Advance [...] [1] Hospital Course He ruled out for NC. Chest x-ray was normal. Stress test was [...] Reason for Visit Chief Complaint R40.20 I95.1 Chief Complaint R40.20 I95.1 Refer F Miranda, Hep B antibody pos, E B16.9 Reason for Visit Elevated liver enzym es Hepatitis B Chief Complaint R40.20 I95.1 Refer F Miranda, Hep B antibody pos, E B16.9 elevated liver enzymes Reason for Visit Elevated liver enzym es Hepatitis B Additional Source Comments (unrecognized sect ion and content) No Status Records FoundNo Status Records FoundNo Status Records FoundNo Status Records FoundNo Status Records Found INFORMATION SOURCE (unrecogn ized section and content) DATE CREATED AUTHOR 12/25/2017 [facility] DATE CREATED AUTHOR AUTHOR'S ORGANIZ ATION 04/15/2019 [facility] DATE CREATED AUTHOR AUTHOR'S ORGANIZ ATION 03/15/2024 [facility] DATE CREATED AUTHOR AUTHOR'S ORGANIZ ATION 03/27/2024 [facility] DATE CREATED AUTHOR AUTHOR'S ORGANIZ ATION 03/30/2024 [facility] [employer] Care Teams (unrecognized sec tion and content) Team Status: Active Member Role Status Dates Emerald Jean APRN Primary Care Provider Active Team Status: Inactive Member Role Status Dates [place] Borges DO Attending Provider Active Start: February 06, 2024 End: February 06, 2024 Emerald Jean APRN Primary Care Provider Active Start: February 06, 2024 End: February 06, 2024 Team Status: Inactive Member Role Status Dates Ayanna Waldron MD Attending Provider Active Start: March 25, 2024 End: March 25, 2024 Emerald Jean APRN Primary Care Provide r, Referring Provider Active Start: March 25, 2024 End: March 25, 2024 Team Status: Inactive Member Role Status Dates Emerald Jean APRN Primary Care Provider Active Start: March 25, 2024 End: March 25, 2024 Ayanna Waldron MD Attending Provider Active Start: March 25, 2024 End: March 25, 2024 Team Status: Active Member Role Status Dates Ayanna Waldron MD Attending Provider Active Start: December 15, 2023 Team Status: Inactive Member Role Status Dates Emerald PRIMO Jean Primary Care Provider Active Start: March 31, 2024 End: March 31, 2024 Ayanna Waldron MD Attending Provider Active Start: March 31, 2024 End: March 31, 2024 Goals (unrecognized section and content) Goals may be documented in a n alternate sectionGoals may be documented in an alternate section FOR RECORDS PERTAINING TO PATIENTS [...] BE BASED ON THE PRIMARY CLINICAL RECORDS. [employer] [facility]. provides no warranty or guarantee of the accuracy or completeness of information in this document.
== END 2024-03-31 19:50 | disposition home or self-care (01) ==
LOC: SLEEP 19:49
PROVIDERS: PCP Internal Medicine Cardiovascular Disease; Visit Provider Internal Medicine Cardiovascular Disease
DX: G47.33 Obstructive sleep apnea (adult) (pediatric) (principal)
CPT/HCPCS: 95811

== ENCOUNTER 2024-08-06 07:24 | Outpatient (OUT) | payer OTHER, SELFPAY ==
--- NOTE | 2024-08-06 | PCN_ITS ---
CARDIAC STRESS TEST Requesting Physician: Procedure Date: 08/06/2024 LEXISCAN EKG STRESS TEST INDICATION FOR THE TEST: Shortness of breath and palpitations. Stress test was discussed with details with the patient, including the risks and benefits and he was agreeable to proceed. Resting EKG showed normal sinus rhythm, heart rate 62 beats per minute, normal EKG. Resting blood pressure 116/68 mm/Hg. The patient was injected with Lexiscan 0.4 mg IV and he was monitored for a few minutes. Patient did not experience any symptoms during the test. Max heart was 126 beats per minute, which represents 78% of age predicted maximum heart rate. Maximal blood pressure 130/80 mm/Hg. EKG throughout the test did not show significant T or ST changes or any arrhythmias. CONCLUSION: 1. Negative Lexiscan EKG stress test for ischemia. 2. The nuclear images report will be dictated separately by Radiology. APRYL
--- NOTE | 2024-08-06 07:00 | NM_ITS ---
Patient Name: NIELS NIELSEN MR#: [id number] : 1965 Exam Date: 08/06/2024 Ordering Doctor: DR. Jacinto Lee M.D. RADIOLOGY REPORT PROCEDURE: NM JAMES PERF SPECT REST STR COMPARISON: None. INDICATIONS: CHEST PAIN, SYNCOPE TECHNIQUE: Exam Description: Stress/Rest one day protocol gated SPECT Rest Imagin.7 mCi Tc-99m Cardiolite IV on 08/06/2024 Stress Imaging 30.4 mCi Tc-99m Cardiolite IV on 08/06/2024 Exercise Protocol: 0.4 mg Lexiscan given IV Heart Rate (bpm): Rest: 62 Max: 126 PMHR: 78 Blood Pressure: Rest: 116/80 Max: 130/80 Symptoms: Rest and peak stress ECG findings were pending and the exercise portion of the study was pending per attending physician Dr. PERERA . For more details please see separate cardiac stress test report. FINDINGS: QUALITY OF STUDY: Good. PERFUSION DEFECT: LOCATION: Apical inferior. [place]. SIZE: Small (1-2 segments). SEVERITY: Mild. TYPE: Persistent. WALL MOTION: Normal. LV SIZE: Normal. 75 mL. TID / TCD: None; 0.8 LVEF: Normal. Calculated EF 73%. SUMMARY: Myocardial perfusion imaging study has ABNORMAL findings. CONCLUSION: 1. Small area of mildly decreased uptake in the apex and inferior wall on stress images, stable on rest images 2. No redistribution to suggest an area reversible ischemia 3. Pending exercise test result Dictated by: Maurisio Tavera MD on 08/06/2024 at 11:58 Approved by: Maurisio Tavera MD on 08/06/2024 at 12:46
--- OUTSIDE RECORDS SUMMARY | 2024-08-06 07:26 | XMS_ITS | CCD ---
Author Organization [facility] Care Team Providers Care Cannoneer Name Role Phone ANABEL LONG Unavailable Unavailable ANABEL LONG Unavailable Unavailable ANABEL LONG Unavailable Unavailable ANABEL LONG Unavailable Unavailable TAMMY CONTRERAS Unavailable Unavailable GEE JONES Admitting Unavailable GEE JONES Attending Unavailable LINCOLN MONK Consulting Unavaila ble BV, Physician - Emergency Consulting Kajal Wood Consulting Unavailable DO Jamaica Borges Attending Provider [phone] PRIMO Jean [place] Primary Care Provider [phone] MD Ayanna Waldron Attending Provider Miranda GERIATRIC PSYCHIATRIST, Emerald Unavailable JAMAICA BORGES Attending Unavailable JAMAICA BORGES Referring Unavailable MICHELLE BANUELOS Attending Unavailable MICHELLE BANUELOS Referring Unavailable JAMAICA BORGES Attending Unavailable BANUELOSMICHELLE Attending Unavailable BANUELOS, MICHELLE Referring Unavailable BANUELOS, MICHELLE Attending Unavailable BANUELOS, MICHELLE Referring Unavailable BANUELOS MICHELLE Attending Unavailable Asaad, Imad Attending Unavailable Asaad, Imad Admitting Unavailable Miranda, [facility] Primary Care Unavailable Jamaica Borges Admitting Unavailab Jamaica Pedraza Attending Unavailab le Miranda, [place] [facility] Unavailable Asaad, Imad Admitting Unavailable Asaad, Imad Attending Unavailable [place], [place] [facility] Unavailable Asaad, Imad Attending Unavailable iMranda, [place] Primary [facility] Unavailable Asaad, Imad Admitting Unavailable Asaad, Imad Attending Unavailable Miranda, Emer[facility] Primary Care Unavailable Asaad, Imad Admitting Unavailable ELISABETH PEREZ Attending Unavailable ELISABETH PEREZ Attending Unavailable ELISABETH PEREZ Attending Unavailable ELISABETH PREEZ Attending Unavailable Allergies Allergy Classification Reported Allergen(s) Allergy Type Date of Onset Reaction(s) Facility (1 source) No Known Medication Allergies; Translations: [No Known Medication Allergies] Propensity to adverse reactions to drug (disorder) [facility] Repository (5 sources) Hornet venom; Translations: [HORNET VENOM] Propensity to adverse reactions 4 [facility] (1 source) bee venom protein (honey bee) Drug allergy (disorder) 4 [facility] Repository Medications Current Medications Medication Drug Class(es) Dates Sig (Normalized) Sig (Original) [id number] 200 actuat albuterol 0.09 mg/actuat metered dose inhaler (2 sources) beta2-Adrenergic Agonist Start: 06-02-2024 take 2 puff(s) by inhalation every four hours albuterol HFA 90 mcg/act inhaler Inhale 2 puffs every 4 (four) hours if needed 06/02/2024 Active amLODIPine 10 mg / benazepril hydrochloride 20 mg oral capsule (12 sources) Dihydropyridine Calcium Channel Roseline, Angiotensin Converting Enzyme Inhibitor Start: 03-25-2024 take 1 capsule by mouth once daily Amlodipine-Benaz epril Active 1 CAP PO Daily March 25, 2024 12:00am Start: 01-19-2024 End: 01-18-2025 take 1 capsule by mouth in the morning amLODIPine-benazepril (Lotrel) 10-20 MG capsule Take 1 capsule by mouth in the morning. 01/19/2024 01/18/2025 Active [id number] 0.3 ml EPINEPHrine 1 mg/ml auto-injector (4 sources) alpha-Adrenergic Agonist, beta-Adrenergic Agonist, Catecholamine Start: 03-05-2024 EPINEPHrine (Epipen) 0.3 MG/0.3ML injection syringe Inject 1 Syringe as directed 1 (one) time 03/05/2024 Active lisinopril 10 mg oral tablet (8 sources) Angiotensin Converting Enzyme Inhibitor Start: 12-04-2023 take 1 tablet by mouth once daily lisinopril 10 MG tablet Take 10 mg by mouth Daily 12/04/2023 Active meloxicam 15 mg oral tablet (7 sources) Nonsteroidal Anti-inflammatory Drug Start: 03-19-2023 take 1 tablet by mouth once daily meloxicam (Mobic) 15 MG tablet Take 15 mg by mouth Daily 03/19/2023 Active 24 hr metoprolol succinate 25 mg extended release oral tablet (12 sources) beta-Adrenergic Roseline Start: 03-25-2024 take 25 mg by mouth once daily Metoprolol Succinate Active 25 MG PO Daily March 25, 2024 12:00am take 1 tablet by mouth once goldy y metoprolol succinate XL (Toprol-XL) 50 MG 24 hr tablet Take 50 mg by mouth Daily Active take 1 tablet by mouth once goldy y metoprolol succinate XL (Toprol-XL) 25 MG 24 hr tablet Take 50 mg by mouth Daily Active Tiotropium-Olodaterol (8 sources) Anticholinergic, beta2-Adrenergic Agonist Start: 03-25-2024 Tiotropium-Olodaterol (Stiolto Respimat) 2.5-2.5 mcg/actuation mist Active 2 PUFF INHALATION Daily March 25, 2024 12:00am Stiolto Respimat 2.5-2.5 MCG/ACT aerosol solution inhaler Inhale 2 Inhalation Daily Active 30 actuat umeclidinium 0.0625 mg/actuat / vilanterol 0.025 mg/actuat dry powder inhaler (2 sources) Anticholinergic, beta2-Adrenergic Agonist Start: 06-02-2024 take 1 puff(s) by inhalation once daily Anoro Ellipta 62.5-25 MCG/ACT aerosol powder Inhale 1 puff Daily 06/02/2024 Active Problems Active Problems Problem Classification Problem Date Documented Da te Episodic/Chronic Alcohol-related disorders (2 sources) Alcohol abuse, uncomplicated; Translations: [Alcohol abuse, uncomplicated] Onset: 01-19-2024 Chronic Cardiac dysrhythmias (2 sources) Palpitations; Translations: [Palpitations] Onset: 12-10-2023 Episodic Essential hypertension (8 sources) Hypertensive disorder; Translations: [Essential (primary) hypertension] Onset: 01-19-2024 03-25-2024 Chronic Headache; including migraine (2 sources) Migraine, unspecified, not intractable, without status migrainosus; Translations: [Migraine, unspecified, without mention of intractable migraine without mention of status migrainosus] 06-15-2024 Chronic Immunizations and screening for infectious disease (1 source) Raised antibody titer; Translations: [Raised antibody titer] Onset: 05-05-2024 Episodic Nausea and vomiting (1 source) Nausea with vomiting, unspecified; Translations: [Nausea with vomiting, unspecified] Onset: 10-24-2017 Episodic Noninfectious gastroenteritis (1 source) Noninfective gastroenteritis and colitis, unspecified; Translations: [Noninfective gastroenteritis and colitis, unspecified] Onset: 10-24-2017 Episodic Nonspecific chest pain (2 sources) Chest pain, unspecified; Translations: [Chest pain, unspecified] Onset: 07-12-2024 Episodic Other circulatory disease (10 sources) Orthostatic hypotension; Translations: [Orthostatic hypotension] Onset: 03-23-2024 03-23-2024 Episodic Other gastrointestinal disorders (1 source) Diarrhea, unspecified; Translations: [Diarrhea, unspecified] Onset: 10-24-2017 Episodic Other infections; including parasitic (6 sources) History of hepatitis B; Translations: [Personal history of other infectious and parasitic diseases] 03-23-2024 Episodic Other liver diseases (1 source) Steatosis of liver; Translations: [Fatty (change of) liver, not elsewhere classified] 04-20-2024 Chronic Other liver diseases (4 sources) Elevated liver enzymes level; Translations: [Abnormal levels of other serum enzymes] 03-25-2024 Episodic Other liver diseases (4 sources) Abnormal levels of other serum enzymes; Translations: [Other nonspecific abnormal serum enzyme levels] 03-25-2024 Episodic Other lower respiratory disease (2 sources) Other forms of dyspnea; Translations: [Other forms of dyspnea] Onset: 12-10-2023 Episodic Other nervous system disorders (6 sources) Numbness of lower limb ; Translations: [Anesthesia of skin] 03-23-2024 Episodic Residual codes; unclassified (2 sources) Sleep apnea, unspecified; Translations: [Sleep apnea, unspecified] Onset: 12-10-2023 Chronic Residual codes; unclassified (2 sources) Tobacco use; Translations: [Tobacco use] Onset: 01-19-2024 Episodic Syncope (2 sources) Syncope and collapse; Translations: [Syncope and collapse] Onset: 12-10-2023 Episodic Past or Other Problems Problem Classification Problem Date Documented Da te Episodic/Chronic Coma; stupor; and brain damage (11 sources) Loss of consciousness; Translations: [Unspecified coma] Onset: 02-06-2024 03-23-2024 Episodic Hepatitis (13 sources) Acute type B viral hepatitis; Translations: [Acute hepatitis B without delta-agent and without hepatic coma] Onset: 03-25-2024 03-25-2024 Episodic Other screening for suspected conditions (not mental disorders or infectious disease) (7 sources) Magnetic resonance imaging of brain abnormal; Translations: [Other abnormal findings on diagnostic imaging of central nervous system] Onset: 03-31-2024 03-23-2024 Episodic Results Test Name Value Interpretation Reference Range Facility Office Visiton 07-12-2024 Follow-up visit [id number] Javier Nielsen 1965 M Date Provider Department Center 07/12/2024 [id number] PEREZ CARD [facility] Family History Problem Relation Age of Onset Cancer Mother COPD Father Family Status - Relation Status Age at Mother Father Level of Service:58810 [place] OFFICE/OUTPATIENT ESTABLISHED MOD MDM 30 MIN Reason for Visit and Comments: Hypertension [830978] - Denies chest pain. Palpitations [981564] - No more than usual for him. Syncope [506] - Denies recurrence. Says he's gotten used to taking his time upon standing up to prevent lightheadedness/dizziness. He's been feeling a lot better the past month or so. Normal [facility] MR abdomen wo/w conon 2023 MR abdomen wo/w con [facility] [place] [address] MRI Report Signed Patient: Ahsan Nielsen MR#: [id number] : 1965 Acct:[id number] Age/Sex: 58 / M ADM Date: 05/05/24 Loc: MR Room: Type: [facility] Attending Dr: Ayanna Waldron MD Copies to: Ayanna Waldron MD Ordering Provider: Ayanna Waldron MD Date of Service: 05/05/24 MR/MR abdomen wo/w con: R76.0 MRI OF THE ABDOMEN WITH AND WITHOUT CONTRAST: CLINICAL HISTORY: Liver lesion seen on ultrasound. COMPARISON: Liver ultrasound 04/03/2024 TECHNIQUE: Multisequence, multiplanar imaging of the abdomen was obtained before and after the use of IV contrast. FINDINGS: The liver appears normal in contour without evidence of steatosis. A focal area of fatty sparing is seen in the region of the gallbladder. No intrahepatic bile duct dilatation. No enhancing liver mass. Hepatic and portal veins appear patent. Gallbladder appears unremarkable. No CBD dilatation. Pancreas enhances homogeneously without mass or pancreatitis. Spleen appears unremarkable. Cyst right kidney. Left kidney appears unremarkable. Abdominal aorta normal caliber. No bulky lymphadenopathy or ascites. No pleural effusion. MR/MR abdomen wo/w con IMPRESSION: NO ENHANCING LIVER LESION IS NOTED. THERE APPEARS BE AN AREA OF FOCAL FATTY SPARING NEAR THE GALLBLADDER POSSIBLY REPRESENTING THE ABNORMALITY SEEN BY ULTRASOUND. REPEAT ULTRASOUND IN 6 MONTHS IS SUGGESTED. Impression dictated by: Shiva Rey Jr., D.O.05/06/2024 9:42 AM Dictation Location: [place] [address] Transcribed By: [facility] 05/06/2442 Dictated By: Shiva Rey Jr, DO 05/06/2434 Signed By: 05/06/24 0942 Normal [facility] liveron 04-03-2024 [facility] [place] [address] Ultrasound Report Signed Patient: Ahsan Nielsen MR#: [id number] : 1965 Acct:[id number] Age/Sex: 58 / M ADM Date: 04/03/24 Loc: Room: Type: [facility] Attending Dr: Ayanna Waldron MD Ordering Provider: Ayanna Waldron MD Date of Service: 04/03/24 US/US liver: B16.9 - Acute hepatitis B without delta-agent and without... Copies to: Ayanna Waldron MD Liver ultrasound HISTORY: Acute hepatitis B virus infection. COMPARISON: None Negative ultrasound Williamson's sign reported. COMMON BILE DUCT: Normal caliber. No intraluminal abnormality. LIVER CONTOUR: Normal. LIVER PARENCHYMA: Hepatic steatosis HEPATIC LESION: Hypoechoic area of the RIGHT lobe of liver measures up to 17 mm. INTRAHEPATIC BILIARY DUCTAL DILATATION No ductal dilatation identified. GALLSTONES: Contracted gallbladder. No shadowing gallstones. GALLBLADDER SLUDGE: No gallbladder sludge. GALLBLADDER WALL: Normal thickness PERICHOLECYSTIC FLUID: None Pancreas: Visualized portions unremarkable. PORTAL VEIN: Normal blood flow. Liver size: Normal No RIGHT hydronephrosis identified. Anechoic RIGHT renal cyst. US/US liver IMPRESSION: 17 mm hypoechoic area of the RIGHT lobe of liver. Hepatic steatosis. No biliary duct dilatation. Impression dictated by: Jai Lees M.D.04/03/2024 9:50 AM Dictation Location: [place] [address] Tech: Devorah Brown Transcribed By: [facility] 04/03/24949 Dictated By: Jai Lees DO 04/03/2436 Signed By: 04/03/24949 Normal [facility] Alanine aminotransferase [En zymatic activity/volume] in Serum or PlasmaOrdered By: Ayanna Waldron on 03-25-2024 ALT [Catalytic activity/Vol] 17 U/L Normal 7-52 [facility] Comment on above: Performed By: #### H BV PCR, HBSAB, HEMOCHROM, HBCAB, HBeAG, HIV SCREEN, HBEAB, HAABT, HAAB, HCBIGM, HCV RX PCR, HDAB, HBSAG, CERULOP, ALPHA PHEN #### [facility] , #### HEPATIC #### [address] Albumin [Mass/volume] in Ser um or Plasma by Bromocresol green (BCG) dye binding methoOrdered By: Imadonay Waldron on 03-25-2024 Albumin BCG dye [Mass/Vol] 4.7 g/dL 3.5-5.7 [facility] Alkaline phosphatase [Enzyma tic activity/volume] in Serum or PlasmaOrdered By: Imadonay Waldron on 03-25-2024 ALP [Catalytic activity/Vol] 73 U/L Normal 34-104 [facility] Comment on above: Result Comment: PERF ORMED BY: [place] [address] PATHOLOGIST TABLE OPERATOR CECILY VILLAGRAN M.D. Performed By: #### H BV PCR, HBSAB, HEMOCHROM, HBCAB, HBeAG, HIV SCREEN, HBEAB, HAABT, HAAB, HCBIGM, HCV RX PCR, HDAB, HBSAG, CERULOP, ALPHA PHEN #### [facility] , #### HEPATIC #### [facility] [address] Jnwfr-0-Cxyvbnsbfvo Phenotyp heidi 03-25-2024 Alpha 1 Anti-Trypsin 119 mg/dL Normal 101-187 [facility] Comment on above: Performed By: #### H BV PCR, HBSAB, HEMOCHROM, HBCAB, HBeAG, HIV SCREEN, HBEAB, HAABT, HAAB, HCBIGM, HCV RX PCR, HDAB, HBSAG, CERULOP, ALPHA PHEN ####[facility] ,#### HEPATIC ####[facility] [id number] Phenotype (P1) MZ Normal . [facility] Comment on above: Result Comment: MM Phenotype is considered to be normal , producing normal serum levels of gwbhr-2-vmlaranm inhibitor and not associated with clinical disease. Associated A1A total serum levels in other phenotypes and their incidence in the general population are shown in the table below. Phenotype Population % function A-1-AT Conc.* Incidence % compared to MM (Typical Range) MM 86.5% 100% (96 - 189) MS 8.0% 86% (83 - 161) MZ 3.9% 61% (60 - 111) FM 0.4% 100% (93 - 191) SZ 0.3% 41% (42 - 75) SS 0.1% 64% (62 - 119) ZZ 0.05% 19% (16 - 38) FS 0.05% 70% (70 - 128) FZ Unknown 46% (44 - 88) FF Unknown Unknown *A-1-AT concentration in the homozygous MM phenotype is taken as the reference normal. Percent deficiency in each phenotype is reported relative to this reference. Ranges used to confirm phenotype. Performed at: [address] [id number] General Ii Farmworker: Prashanth Cat PhD, Phone: [phone] Performed at: [address], [place], [place] [id number] General Ii Farmworker: Girish Kay MD, Phone: [phone] Performed By: #### H BV PCR, HBSAB, HEMOCHROM, HBCAB, HBeAG, HIV SCREEN, HBEAB, HAABT, HAAB, HCBIGM, HCV RX PCR, HDAB, HBSAG, CERULOP, ALPHA PHEN ####[facility] ,#### HEPATIC ####[facility] Aspartate aminotransferase [ Enzymatic activity/volume] in Serum or PlasmaOrdered By: Imad Asaad on 03-25-2024 AST [Catalytic activity/Vol] 16 U/L Normal 13-39 [facility] Comment on above: Performed By: #### H BV PCR, HBSAB, HEMOCHROM, HBCAB, HBeAG, HIV SCREEN, HBEAB, HAABT, HAAB, HCBIGM, HCV RX PCR, HDAB, HBSAG, CERULOP, ALPHA PHEN #### [facility] , #### HEPATIC #### [facility] [address] [place] [address] [place] Bilirubin.direct [Mass/volum e] in Serum or PlasmaOrdered By: Imad Asaad on 03-25-2024 Bilirubin.direct [Mass/Vol] 0.10 mg/dL 0.03-0.18 [facility] Bilirubin.total [Mass/volume ] in Serum or PlasmaOrdered By: Imad Asaad on 03-25-2024 Bilirubin [Mass/Vol] 0.9 mg/dL Normal 0.3-1.0 [facility] Comment on above: Performed By: #### H BV PCR, HBSAB, HEMOCHROM, HBCAB, HBeAG, HIV SCREEN, HBEAB, HAABT, HAAB, HCBIGM, HCV RX PCR, HDAB, HBSAG, CERULOP, ALPHA PHEN #### [facility] , #### HEPATIC #### [facility] [address] Blood or tissue HFE gene mut ations identification by molecular genetics methodOrdered By: Imad Asaad on 03-25-2024 HFE gene targeted mutation analysis [employer] Nom (Bld/Tiss) Comment . [facility] Comment on above: Results:c.845G>A (p. Yfs030Wij) - Not Detectedc.187C>G (p.Whz01Utm) - Detected, heterozygousc.193A>T (p.Ubs56Eih) - Not DetectedNot associated with increased risk to develop clinicalsymptoms of Hereditary Hemochromatosis. In symptomaticindividuals, other causes of iron overload should beevaluated. See Additional Information and Comments.Additional Clinical Information:Hereditary hemochromatosis (HFE related) is an autosomalrecessive iron storage disorder. Patients may have agenetic diagnosis of hereditary hemochromatosis and nevershow clinical symptoms. Clinical symptoms typically appearbetween 40 to 60 years in males and after menopause infemales. Signs and symptoms may include organ damage,primarily in the liver, risk for hepatocellularcarcinoma, diabetes, and heart disease due to ironaccumulation. Life expectancy may be decreased inindividuals who develop cirrhosis. Treatment forclinically symptomatic individuals may includetherapeutic phlebotomy. Liver transplant may be used totreat end stage liver failure. For preventive care,monitoring for iron overload is recommended for patientswho are homozygous for c.845G>A (p.Sju897Lni) and have yetto experience clinical symptoms.Comments:The most common HFE variants associated with hereditaryhemochromatosis are c.845G>A (p.Xkx039Rjk), c.187C>G(p.Wwh67Oxh), c.193A>T (p.Oub03Tqg). While patientshomozygous for c.845G>A (p.Fjr990Kzg) are the most likelyto present clinical symptoms, less than 10% developclinically significant iron overload with tissue and organdamage.Genetic counseling is recommended to discuss the potentialclinical implications of positive results, as well asrecommendations for testing family members.Genetic Coordinators are available for health careproviders to discuss results at [phone] ([phone]).Test Details:Three variants analyzed:c.845G>A (p.Vpv369Xvs), commonly referred to as C282Yc.187C>G (p.Mfv43Ixj), commonly referred to as H63Dc.193A>T (p.Rsn51Ifh), commonly referred to as O15FDpkqpbs/Limitations:DNA Analysis of the HFE gene (NM_000410.4) was performedby PCR amplification followed by restriction enzymedigestion analyses. Results must be combined with clinicalinformation for the most accurate interpretation. Molecular-based testing is highly accurate, but as in any laboratorytest, diagnostic errors may occur. False positive or falsenegative results may occur for reasons that include geneticvariants, blood transfusions, bone marrow transplantation,somatic or tissue-specific mosaicism, mislabeled samples,or erroneous representation of family relationships.This test was developed and its performancecharacteristics determined by [facility]. It has not beencleared or approved by the Food and Drug Administration.References:Jorden BR, Jin PC, Fernandez KV, Jarret LW, Michell ;[employer] the [employer] Liver Diseases.Diagnosis and management of hemochromatosis: 2011 practiceguideline by the [place] Association for the Study ofLiver Diseases. Hepatology. 2011 Jan;54(1):328-43. doi:10.1002/hep.08587. PMID: 62329458; PMCID: [id number].Dakota G, Paramjit P, Kina DW, Kathryn H, Rosemary O,Lucian S, Casey I, Mahad M, Lauren S. [facility] best practiceguidelines for the molecular genetic diagnosis ofhereditary hemochromatosis (HH). Eur J Hum Alisha. 2016Apr;24(4):479-95. doi: 10.1038/ejhg.2015.128. Epub 2014. PMID: 62777453; PMCID: [id number]. Ceruloplasminon 03-25-2024 Ceruloplasmin 32.5 mg/dL High 16.0-31.0 [facility] Comment on above: Result Comment: Perf ormed at: CB - [facility] [address] [id number] General Ii Farmworker: Prashanth Cat PhD, Phone: [phone] PERFORMED BY: [address] [place] [address] PATHOLOGIST TABLE OPERATOR CECILY VILLAGRAN M.D. Performed By: #### H BV PCR, HBSAB, HEMOCHROM, HBCAB, HBeAG, HIV SCREEN, HBEAB, HAABT, HAAB, HCBIGM, HCV RX PCR, HDAB, HBSAG, CERULOP, ALPHA PHEN #### [facility] , #### HEPATIC #### [facility] [address] HIV 1/O/2 Antigen/Antibodyon 03-25-2024 HIV Screen 4th Generation Non-Reactive Normal Non Reactive [facility] Comment on above: Result Comment: HIV- 1/HIV-2 antibodies and HIV-1 p24 antigen were NOT detected. There is no laboratory evidence of HIV infection. HIV Negative Performed at: [facility] [id number] General Ii Farmworker: Prashanth Cat PhD, Phone: [phone] Performed By: #### H BV PCR, HBSAB, HEMOCHROM, HBCAB, HBeAG, HIV SCREEN, HBEAB, HAABT, HAAB, HCBIGM, HCV RX PCR, HDAB, HBSAG, CERULOP, ALPHA PHEN ####[facility] ,#### HEPATIC ####[facility] HIV 1 and HIV-2 antibody ass ay with HIV-1 p24 antigen detectionOrdered By: Ayanna Waldron on 03-25-2024 HIV 1+2 Ab+HIV1 p24 Ag IA Ql Non-Reactive Non Reactive [facility] Comment on above: HIV-1/HIV-2 antibodi es and HIV-1 p24 antigen were NOTdetected. There is no laboratory evidence of HIV infection.HIV NegativePerformed at: [facility] [id number] Director: Prashanth Cat PhD, Phone: [phone] Hep B Real-Time PCR, Quanton 03-25-2024 HBV As IU/mL Not detected Normal . [facility] Comment on above: Performed By: #### H BV PCR, HBSAB, HEMOCHROM, HBCAB, HBeAG, HIV SCREEN, HBEAB, HAABT, HAAB, HCBIGM, HCV RX PCR, HDAB, HBSAG, CERULOP, ALPHA PHEN ####[facility] ,#### HEPATIC ####[address] Log10 HBV (As IU/mL) Normal . [facility] Comment on above: Result Comment: Resu lt Units: log10 IU/mL Unable to calculate result since non-numeric result obtained for component test. Performed By: #### H BV PCR, HBSAB, HEMOCHROM, HBCAB, HBeAG, HIV SCREEN, HBEAB, HAABT, HAAB, HCBIGM, HCV RX PCR, HDAB, HBSAG, CERULOP, ALPHA PHEN ####[facility] ,#### HEPATIC ####[address] Test Information: Comment Normal . [facility] Comment on above: Result Comment: The reportable range for this assay is 10 IU/mL to 1 billion IU/mL. Performed at: [facility] [id number] General Ii Farmworker: Girish Kay MD, Phone: [phone] PERFORMED BY: [facility] [address] [place] [address] PATHOLOGIST TABLE OPERATOR CECILY VILLAGRAN M.D. Performed By: #### H BV PCR, HBSAB, HEMOCHROM, HBCAB, HBeAG, HIV SCREEN, HBEAB, HAABT, HAAB, HCBIGM, HCV RX PCR, HDAB, HBSAG, CERULOP, ALPHA PHEN ####[facility] ,#### HEPATIC ####[address] Hep C Ab wRfx to Qnt PCRon 0 03-25-2024 Hepatitis C Virus Antibody Non-Reactive Normal Non Reactive [facility] Comment on above: Performed By: #### H BV PCR, HBSAB, HEMOCHROM, HBCAB, HBeAG, HIV SCREEN, HBEAB, HAABT, HAAB, HCBIGM, HCV RX PCR, HDAB, HBSAG, CERULOP, ALPHA PHEN #### [facility] , #### HEPATIC #### [address] Interpretation Hepatitis C Comment Normal . [facility] Comment on above: Result Comment: Not infected with HCV unless early or acute infection is suspected (which may be delayed in an immunocompromised individual), or other evidence exists to indicate HCV infection. Performed By: #### H BV PCR, HBSAB, HEMOCHROM, HBCAB, HBeAG, HIV SCREEN, HBEAB, HAABT, HAAB, HCBIGM, HCV RX PCR, HDAB, HBSAG, CERULOP, ALPHA PHEN #### [facility] , #### HEPATIC #### [address] Hepatic Panelon 03-25-2024 Albumin [Mass/Vol] 4.7 g/dL Normal 3.5-5.7 [facility] [facility] Comment on above: Performed By: #### H BV PCR, HBSAB, HEMOCHROM, HBCAB, HBeAG, HIV SCREEN, HBEAB, HAABT, HAAB, HCBIGM, HCV RX PCR, HDAB, HBSAG, CERULOP, ALPHA PHEN #### [facility] , #### HEPATIC #### [address] Bilirubin,Indirect 0.8 mg/dL Normal [facility] Comment on above: Performed By: #### H BV PCR, HBSAB, HEMOCHROM, HBCAB, HBeAG, HIV SCREEN, HBEAB, HAABT, HAAB, HCBIGM, HCV RX PCR, HDAB, HBSAG, CERULOP, ALPHA PHEN #### [facility] , #### HEPATIC #### [address] Bilirubin.indirect [Mass/Vol] 0.10 mg/dL Normal 0.03-0.18 [facility] Comment on above: Performed By: #### H BV PCR, HBSAB, HEMOCHROM, HBCAB, HBeAG, HIV SCREEN, HBEAB, HAABT, HAAB, HCBIGM, HCV RX PCR, HDAB, HBSAG, CERULOP, ALPHA PHEN #### [facility] , #### HEPATIC #### [facility] [address] [place] [address] Hepatitis A Antibody IgMon 0 03-25-2024 Hepatitis A Antibody IgM Negative Normal Negative [facility] Comment on above: Result Comment: A ne gative anti-HAV IgM result suggests no recent or current HAV infection. Performed By: #### H BV PCR, HBSAB, HEMOCHROM, HBCAB, HBeAG, HIV SCREEN, HBEAB, HAABT, HAAB, HCBIGM, HCV RX PCR, HDAB, HBSAG, CERULOP, ALPHA PHEN #### [facility] , #### HEPATIC #### [facility] [address] [place] [address] Hepatitis A Antibody Totalon 03-25-2024 Hepatitis A Antibody Total Negative Normal Negative [facility] Comment on above: Result Comment: Comm ent: The HAV total antibody assay detects both IgG and IgM but does not differentiate between them. A negative result suggests susceptibility to infection. A positive result could be due to vaccination, previously resolved infection or active infection. Testing for HAV IgM should be performed if active HAV infection is suspected. [facility] offers profiles that will automatically reflex positive HAV total antibody results to IgM (e.g., panel #[id number] HAV Antibody w/ Rfx). Performed By: #### H BV PCR, HBSAB, HEMOCHROM, HBCAB, HBeAG, HIV SCREEN, HBEAB, HAABT, HAAB, HCBIGM, HCV RX PCR, HDAB, HBSAG, CERULOP, ALPHA PHEN #### [facility] , #### HEPATIC #### [facility] [address] [place] [address] Hepatitis A virus Ab [Presen ce] in Serum by ImmunoassayOrdered By: Ayanna Waldron on 03-25-2024 HAV Ab IA Ql (S) Negative Negative [facility] Comment on above: Comment: The HAV tot [...] HAVtotal antibody results to IgM (e.g., panel #[id number] HAVAntibody w/ Rfx). Hepatitis B Core Antibodyon 03-25-2024 Hepatitis B Core Antibody Positive Critically abnormal Negative [facility] Comment on above: Performed By: #### H BV PCR, HBSAB, HEMOCHROM, HBCAB, HBeAG, HIV SCREEN, HBEAB, HAABT, HAAB, HCBIGM, HCV RX PCR, HDAB, HBSAG, CERULOP, ALPHA PHEN ####[facility] ,#### HEPATIC ####[facility] Hepatitis B Core Antibody Ig Mon 03-25-2024 Hepatitis B Core Antibody IgM Negative Normal Negative [facility] Comment on above: Result Comment: Perf ormed at: - [facility] [address] [id number] General Ii Farmworker: Prashanth Cat PhD, Phone: [phone] Performed By: #### H BV PCR, HBSAB, HEMOCHROM, HBCAB, HBeAG, HIV SCREEN, HBEAB, HAABT, HAAB, HCBIGM, HCV RX PCR, HDAB, HBSAG, CERULOP, ALPHA PHEN #### [facility] , #### HEPATIC #### [facility] [address] Hepatitis B Surface Antibody on 03-25-2024 Hepatitis B Surface Antibody Reactive Normal . [facility] Comment on above: Result Comment: Non Reactive: Not immune to HBV infection. Equivocal: Unable to determine if anti-HBs is present at levels consistent with immunity. Reactive: Anti-HBs concentration detected at greater than 10 mIU/mL. Individual is considered to be immune to infection with HBV. Performed By: #### H BV PCR, HBSAB, HEMOCHROM, HBCAB, HBeAG, HIV SCREEN, HBEAB, HAABT, HAAB, HCBIGM, HCV RX PCR, HDAB, HBSAG, CERULOP, ALPHA PHEN #### [facility] , #### HEPATIC #### [facility] [address] Hepatitis B Surface Antigeno n 03-25-2024 HBsAg Screen Negative Normal Negative [facility] Comment on above: Result Comment: PERF ORMED BY: [facility] [address] [place] [address] PATHOLOGIST TABLE OPERATOR CECILY VILLAGRAN M.D. Performed By: #### H BV PCR, HBSAB, HEMOCHROM, HBCAB, HBeAG, HIV SCREEN, HBEAB, HAABT, HAAB, HCBIGM, HCV RX PCR, HDAB, HBSAG, CERULOP, ALPHA PHEN ####[facility] ,#### HEPATIC ####[facility] [id number] Hepatitis B virus surface Ab [Presence] in SerumOrdered By: Imad Asaad on 03-25-2024 HBV surface Ab Ql (S) Reactive . [facility] Comment on above: Non Reactive: Not im [...] HBV surface Ag IA Ql Negative Negative [facility] Hepatitis Be Antibodyon 03-07 Hepatitis Be Antibody Reactive Critically abnormal Negative [facility] Comment on above: Performed By: #### H BV PCR, HBSAB, HEMOCHROM, HBCAB, HBeAG, HIV SCREEN, HBEAB, HAABT, HAAB, HCBIGM, HCV RX PCR, HDAB, HBSAG, CERULOP, ALPHA PHEN ####[facility] ,#### HEPATIC ####[facility] I[address] Hepatitis Be Antigenon 03-25 Hepatitis Be Antigen Negative Normal Negative [facility] Comment on above: Performed By: #### H BV PCR, HBSAB, HEMOCHROM, HBCAB, HBeAG, HIV SCREEN, HBEAB, HAABT, HAAB, HCBIGM, HCV RX PCR, HDAB, HBSAG, CERULOP, ALPHA PHEN ####[facility] ,#### HEPATIC ####[facility] Hepatitis C virus IgG Ab [Pr esence] in Serum or Plasma by ImmunoassayOrdered By: Ayanna Waldron on 03-25-2024 HCV IgG IA Ql Non-Reactive Non Reactive [facility] Hepatitis Delta AntibodyOrde red By: Imadonay Waldron on 03-25-2024 Hepatitis Delta Antibody Non-Reactive Normal [facility] Comment on above: Reference: Non React iveInterpretation: No laboratory evidence of hepatitis D virus (HDV) infection or past exposure to HDVPerforming Labs01: [facility], [address] [place] [address] Dir: Prashanth Cat, PhD02: [address] [address] Dir: Girish Kay MDFor Inquiries, the physician may contact Branch: [phone] Lab: [phone] Result Comment: Reference: Non Reactive Interpretation: No laboratory evidence of hepatitis D virus (HDV) infection or past exposure to HDV Performing Labs 01: [facility], [address] [place] [address] Dir: Prashanth Cat, PhD 02: [address] [address] Dir: Girish Kay MD For Inquiries, the physician may contact Branch: [phone] Lab: [phone] Performed By: #### H BV PCR, HBSAB, HEMOCHROM, HBCAB, HBeAG, HIV SCREEN, HBEAB, HAABT, HAAB, HCBIGM, HCV RX PCR, HDAB, HBSAG, CERULOP, ALPHA PHEN ####[facility] ,#### HEPATIC ####[facility] [address] [place] [address] [facility] Hereditary Hemochromatosis,Candice Garcia 03-25-2024 Hereditary Hemochromatosis Comment Normal . [facility] Comment on above: Result Comment: Resu lts: c.845G>A (p.Smw328Kcq) - Not Detected c.187C>G (p.Hsx61Ito) - Detected, heterozygous c.193A>T (p.Shi12Znf) - Not Detected Not associated with increased risk to develop clinical symptoms of Hereditary Hemochromatosis. In symptomatic individuals, other causes of iron overload should be evaluated. See Additional Information and Comments. Additional Clinical Information: Hereditary hemochromatosis (HFE related) is an autosomal recessive iron storage disorder. Patients may have a genetic diagnosis of hereditary hemochromatosis and never show clinical symptoms. Clinical symptoms typically appear between 40 to 60 years in males and after menopause in females. Signs and symptoms may include organ damage, primarily in the liver, risk for hepatocellular carcinoma, diabetes, and heart disease due to iron accumulation. Life expectancy may be decreased in individuals who develop cirrhosis. Treatment for clinically symptomatic individuals may include therapeutic phlebotomy. Liver transplant may be used to treat end stage liver failure. For preventive care, monitoring for iron overload is recommended for patients who are homozygous for c.845G>A (p.Rih883Myt) and have yet to experience clinical symptoms. Comments: The most common HFE variants associated with hereditary hemochromatosis are c.845G>A (p.Zeu575Wyq), c.187C>G (p.Cuz75Fhq), c.193A>T (p.Abj79Juj). While patients homozygous for c.845G>A (p.Dvo293Ted) are the most likely to present clinical symptoms, less than 10% develop clinically significant iron overload with tissue and organ damage. Genetic counseling is recommended to discuss the potential clinical implications of positive results, as well as recommendations for testing family members. Genetic Coordinators are available for health care providers to discuss results at [phone] Test Details: Three variants analyzed: c.845G>A (p.Vqk526Mvg), commonly referred to as C282Y c.187C>G (p.Tpz29Fgu), commonly referred to as H63D c.193A>T (p.Wev85Pdq), commonly referred to as S65C Methods/Limitations: DNA Analysis of the HFE gene (NM_000410.4) was performed by PCR amplification followed by restriction enzyme digestion analyses. Results must be combined with clinical information for the most accurate interpretation. Molecular- based testing is highly accurate, but as in any laboratory test, diagnostic errors may occur. False positive or false negative results may occur for reasons that include genetic variants, blood transfusions, bone marrow transplantation, somatic or tissue-specific mosaicism, mislabeled samples, or erroneous representation of family relationships. This test was developed and its performance characteristics determined by [employer]. It has not been cleared or approved by the Food and Drug Administration. References: Jorden BR, Jin PC, Fernandez KV, Jarret LW, Michell ; [employer]. Diagnosis and management of hemochromatosis: 2011 practice guideline by the [place]. Hepatology. 2010;54(1):328-43. doi: 10.1002/hep.55389. PMID: 80173680; PMCID: PGF4642913. Dakota G, Paramjit P, Kina DW, Kathryn H, Rosemary O, Lucian S, Casey I, Mahad M, Lauren S. [facility] best practice guidelines for the molecular genetic diagnosis of hereditary hemochromatosis (HH). Eur J Hum Alisha. 2016 Oct;24(4):479-95. doi: 10.1038/ejhg.2015.128. Epub 2014Jan 11. PMID: 98593112; PMCID: VBR8904155. Performed By: #### H BV PCR, HBSAB, HEMOCHROM, HBCAB, HBeAG, HIV SCREEN, HBEAB, HAABT, HAAB, HCBIGM, HCV RX PCR, HDAB, HBSAG, CERULOP, ALPHA PHEN ####[facility] ,#### HEPATIC ####[facility] [address] [place] [address] [facility] Reviewed by: Comment Normal . [facility] Comment on above: Result Comment: Tim Ovalle, PhD FACMG Performed at: [facility] RT[address] [place], [place] [id number] General Ii Farmworker: Yolanda Lynne [facility], Phone: [phone] PERFORMED BY: [facility] [address] [place] [address] PATHOLOGIST TABLE OPERATOR CECILY VILLAGRAN M.D. Performed By: #### H BV PCR, HBSAB, HEMOCHROM, HBCAB, HBeAG, HIV SCREEN, HBEAB, HAABT, HAAB, HCBIGM, HCV RX PCR, HDAB, HBSAG, CERULOP, ALPHA PHEN ####[facility] ,#### HEPATIC ####[facility] [id number] [place] [address] No Panel InformationOrdered By: Ayanna Waldron on 03-25-2024 Hemochromatosis Note Comment . [facility] Comment on above: Eduardo Ovalle, PhD FA CMGPerformed at: - [facility] [id number] [place], [place] [id number] Director: Yolanda Lynne [facility], Phone: [phone] Hepatitis A IgM Antibody Negative Negative [facility] Comment on above: A negative anti-HAV IgM result suggests no recent orcurrent HAV infection. Hepatitis B Core IgM Antibody Negative Negative [facility] Comment on above: Performed at: [address] [id number] Director: Prashanth Cat PhD, Phone: [phone] Hepatitis B Core Total Antibody Positive Abnormal Negative [facility] Hepatitis B DNA Test Information Comment . [facility] Comment on above: The reportable range for this assay is 10 IU/mL to 1billion IU/mL.Performed at: - [facility] [address] [id number] Director: Girish Kay MD, Phone: [phone] Hepatitis C Interpretation Comment . [facility] Comment on above: Not infected with HC V unless early or acute infection issuspected (which may be delayed in an immunocompromisedindividual), or other evidence exists to indicate HCVinfection. Protein [Mass/volume] in Ser um or PlasmaOrdered By: Ayanna Waldron on 03-25-2024 Protein [Mass/Vol] 7.7 g/dL Normal 6.4-8.9 [facility] Comment on above: Performed By: #### H BV PCR, HBSAB, HEMOCHROM, HBCAB, HBeAG, HIV SCREEN, HBEAB, HAABT, HAAB, HCBIGM, HCV RX PCR, HDAB, HBSAG, CERULOP, ALPHA PHEN #### [facility] , #### HEPATIC #### [facility] [address] [place] [address] Qualitative serum or plasma hepatitis B virus e antibody by enzyme immunoassayOrdered By: Imad [facility] HBV e Ab IA Ql Reactive Abnormal Negative [facility] Serum nngie-0-qemjaobobqi me asurementOrdered By: ad [facility] 03-25-2024 Alpha 1 antitrypsin [Mass/Vol] 119 mg/dL 101-187 [facility] Serum globulin measurement b y calculation (mass/volume)Ordered By: [facility] on 03-25-2024 Globulin (S) [Mass/Vol] 3.0 g/dL [facility] Comment on above: Performed By: #### H BV PCR, HBSAB, HEMOCHROM, HBCAB, HBeAG, HIV SCREEN, HBEAB, HAABT, HAAB, HCBIGM, HCV RX PCR, HDAB, HBSAG, CERULOP, ALPHA PHEN #### [facility] , #### HEPATIC #### [address] Serum hepatitis B virus e an tigen detection by enzyme immunoassayOrdered By: Imad Asaad on 03-25-2024 HBV e Ag IA Ql Negative Negative [facility] Serum or plasma albumin/glob ulin mass ratioOrdered By: ad [facility] on 03-25-2024 Albumin/Globulin [Mass ratio] 1.6 {ratio} [facility] Comment on above: Performed By: #### H BV PCR, HBSAB, HEMOCHROM, HBCAB, HBeAG, HIV SCREEN, HBEAB, HAABT, HAAB, HCBIGM, HCV RX PCR, HDAB, HBSAG, CERULOP, ALPHA PHEN #### [facility] , #### HEPATIC #### [facility] [address] Serum or plasma alpha 1 anti trypsin phenotyping identification by immunofixationOrdered By: Ayanna Waldron on 03-25-2024 Alpha 1 antitrypsin phenotyping Immunofixation Nom Mz . [facility] Comment on above: MM Phenotype is co nsidered to be normal , producingnormal serum levels of mmvqz-2-mlprluok inhibitor andnot associated with clinical disease. Associated A5Agsubs serum levels in other phenotypes and theirincidence in the general population are shown in thetable below.Phenotype Population % function A-1-AT Conc.* Incidence % compared to MM (Typical Range) MM 86.5% 100% (96 - 189) MS 8.0% 86% (83 - 161) MZ 3.9% 61% (60 - 111) FM 0.4% 100% (93 - 191) SZ 0.3% 41% (42 - 75) SS 0.1% 64% (62 - 119) ZZ 0.05% 19% (16 - 38) FS 0.05% 70% (70 - 128) FZ Unknown 46% (44 - 88) FF Unknown Unknown*A-1-AT concentration in the homozygous MM phenotype is taken as the reference normal. Percent deficiency in each phenotype is reported relative to this reference. Ranges used to confirm phenotype.Performed at: [facility] [id number] Director: Prashanth Cat PhD, Phone: [phone] at: [facility] Lab[address] [id number] Director: Girish Kay MD, Phone: [phone] Serum or plasma ceruloplasmi n measurement (mass/volume)Ordered By: Ayanna Waldron on 03-25-2024 Ceruloplasmin [Mass/Vol] 32.5 mg/dL High 16.0-31.0 [facility] Comment on above: Performed at: [address] [id number] Director: Prashanth Cat PhD, Phone: [phone] Serum or plasma hepatitis B virus DNA measurement (units/volume) (viral load) by probOrdered By: Ayanna Waldron on 03-25-2024 HBV DNA CHAUNCEY+probe Qn Not detected . [facility] Serum or plasma hepatitis B virus DNA viral load by probe and target amplification meOrdered By: Ayanna Waldron on 03-25-2024 HBV DNA CHAUNCEY+probe [#/Vol] N/A [facility] HBV DNA CHAUNCEY+probe [Log units/Vol] See comment . [facility] Comment on above: Result Units: log10 IU/mLUnable to calculate result since non-numeric resultobtained for component test. Serum or plasma non-glucuron idated bilirubin measurement (mass/volume)Ordered By: adonay Tomas on 03-25-2024 Bilirubin.indirect [Mass/Vol] 0.8 mg/dL [facility] 36on 03-10-2024 36 Per liudmila Horne patient's blood pressure log that is scanned [...] notified and verbalized understanding. Felicity Bailon MA [facility] Office Visiton 03-10-2024 Follow-up visit [id number] Javier Nielsen 1965 M Date Provider Department Center 03/10/2024 64728-TOZSICELISABETH PEREZ Hos Family History Problem Relation Age of Onset Cancer Mother COPD Father Family Status - Relation Status Age at Mother Father Level of Service:34785 [place] OFFICE/OUTPATIENT ESTABLISHED MOD MDM 30 MIN Reason for Visit and Comments: Hypertension [252456] - Pt is here for a six to eight week follow up. [facility] MR head/brain wo/w conon MR head/brain wo/w con [facility] Main [address] [address] MRI Report Signed Patient: Ahsan Nielsen MR#: [id number] : 1965 Acct:[id number] Age/Sex: 58 / M ADM Date: 02/06/24 Loc: MR Room: Type: [facility] Attending Dr: Jamaica Borges DO Copies to: [...] changes. Impression dictated by: Shiva Rey Jr., DDanielaODaniela02/06/2024 7:24 PM Dictation Location: [place] [address] Transcribed By: [facility] 02/06/241923 Dictated By: Shiva Rey Jr, DO 02/06/241920 Signed By: 02/06/241923 Normal [facility] Office Visiton 01-19-2024 Follow-up visit [id number] Javier Nielsen 1965 M Date Provider Department Center 01/19/2024 34996-SIXNUWELISABETH PEREZ Family History Problem Relation Age of Onset Cancer Mother COPD Father Family Status - Relation Status Age at Mother Father Level of Service:15664 [place] OFFICE/OUTPATIENT ESTABLISHED MOD MDM 30 MIN Normal [facility] 36on 01-15-2024 36 Regarding echo resul t from 01/07/2024: MD Michelle Shetty MA Please notify patient his echo appears to be normal. Continue current management. Thank you Attempted to call patient's home #. The automated system said this line was currently suspended. I then called the cell # twice and it was busy. Normal [facility] 36on 12-16-2023 36 Regarding lab result s from 12/12/2023: MD Michelle Shetty MA Notify patient that his lipids shows mildly elevated LDL cholesterol, follow low-fat diet. His TSH and a.m. cortisol level are normal Spoke with patient's and made her aware. Normal [facility] Orders Onlyon 12-11-2023 Orders Only [id number] RobJavierseferino A 1965 M Date Provider Department Center 12/11/2023 KAITLIN ROY Family History Problem Relation Age of Onset Cancer Mother COPD Father Family Status - Relation Status Age at Mother Father [facility] Office Visiton 12-10-2023 Follow-up visit [id number] Javier Nielsen A 1965 M Date Provider Department Center 12/10/2023 30612-BXIOPPELISABETH NGUYEN Family History Problem Relation Age of Onset Cancer Mother COPD Father Family Status - Relation Status Age at Mother Father Level of Service:87566 [place] OFFICE/OUTPATIENT NEW MODERATE MDM 45 MINUTES Normal [facility] Office/Clini c Noteon 11-27-2018 [...] qualifying data available (MRI) Electronically signed by Bill FOXGuille 11/27/18 15:46 EDT Normal [facility] .eGFRon 11-20-2018 eGFR AA >60 Normal >=60 [facility] Comment on above: Result Comment: Resu lt = 0-14.9 mL/min/1.73 m2 Kidney failure or Dialysis Result = 15-29 mL/min/1.73 m2 Severe decrease in GFR Result = 30-59 mL/min/1.73 m2 Moderate decrease in GFR Result >= 60 mL/min/1.73 m2 Normal or increased GFR Performed By: #### E GFR #### [address] [address] eGFR Non-AA >60 Normal >=60 [facility] Comment on above: Result Comment: Resu [...] dosing. Performed By: #### E GFR #### [address] [address] AMI 2Hron 11-20-2018 2 Hour Myoglobin 22.0 ng/mL Normal 17.4-105.7 [facility] Comment on above: Performed By: #### C BC #### [address] [address] Troponin I.cardiac [Mass/Vol] ng/mL Normal 0.00-0.03 [facility] Comment on above: Result Comment: An i ncreased Troponin-I value, in the absence of myocardial ischemia, may indicate other etiologies of cardiac damage. Performed By: #### C BC #### [address] [address] AMI Initon 11-20-2018 Initial Myoglobin 29.0 ng/mL Normal 17.4-105.7 [facility] Comment on above: Performed By: #### A MI1 #### [address] [address] Troponin I.cardiac [Mass/Vol] ng/mL Normal 0.00-0.03 [facility] Comment on above: Result Comment: An i ncreased Troponin-I value, in the absence of myocardial ischemia, may indicate other etiologies of cardiac damage. Performed By: #### A MI1 #### [address] [address] NNC3Tmgv 11-20-2018 6 Hour Myoglobin 27.0 ng/mL Normal 17.4-105.7 [facility] Comment on above: Performed By: #### C BC #### [address] [address] Troponin I.cardiac [Mass/Vol] ng/mL Normal 0.00-0.03 [facility] Comment on above: Result Comment: An i ncreased Troponin-I value, in the absence of myocardial ischemia, may indicate other etiologies of cardiac damage. Performed By: #### C BC #### [address] [address] Basic Metabolic Profileon Anion gap [Moles/Vol] 14 mmol/L Normal -17 [facility] Comment on above: Performed By: #### C D:[id number] #### [address] [address] Calcium [Mass/Vol] 8.7 mg/dL Normal 8.5-10.3 [facility] Comment on above: Performed By: #### C D:[id number] #### [address] [address] Chloride [Moles/Vol] 105 mmol/L Normal 98-110 [facility] Comment on above: Performed By: #### C D:[id number] #### [address] [address] CO2 [Moles/Vol] 22 mmol/L Normal 22-32 [facility] Comment on above: Performed By: #### C D:[id number] #### [address] [address] Creatinine [Mass/Vol] 0.70 mg/dL Normal 0.61-1.24 [facility] Comment on above: Performed By: #### C D:[id number] #### [address] [address] Glucose [Mass/Vol] 100 mg/dL Normal 74-118 [facility] Comment on above: Performed By: #### C D:[id number] #### [address] [address] Potassium [Moles/Vol] 4.4 mmol/L Normal 3.4-4.8 [facility] Comment on above: Performed By: #### C D:[id number] #### [address] [address] Sodium [Moles/Vol] 137 mmol/L Normal 133-142 [facility] Comment on above: Performed By: #### C D:[id number] #### [address] [address] Urea nitrogen [Mass/Vol] 13 mg/dL Normal 8-26 [facility] Comment on above: Performed By: #### C D:[id number] #### [address] [address] Urea nitrogen/Creatinine [Mass ratio] 18.6 mg/mg Normal 10.0-20.0 [facility] Comment on above: Performed By: #### C D:[id number] #### [address] [address] CBC w/ Diffon 11-20-2018 Erythrocyte distribution width (RBC) [Ratio] 13.0 % Normal 11.6-14.8 [facility] Comment on above: Performed By: #### C BC #### [address] [address] Hematocrit (Bld) [Volume fraction] 46.3 % Normal 41.0-53.0 [facility] Comment on above: Performed By: #### C BC #### [address] [address] Hemoglobin (Bld) [Mass/Vol] 15.8 g/dL Normal 13.5-17.5 [facility] Comment on above: Performed By: #### C BC #### [address] [address] MCH (RBC) [Entitic mass] 32.5 pg Normal 27.0-35.0 [facility] Comment on above: Performed By: #### C BC #### [address] [address] MCHC (RBC) [Mass/Vol] 34.1 % Normal 31.0-37.0 [facility] Comment on above: Performed By: #### C BC #### [address] [address] MCV (RBC) [Entitic vol] 95.3 fL Normal 80.0-100.0 [facility] Comment on above: Performed By: #### C BC #### [address] [address] Platelet mean volume (Bld) [Entitic vol] 8.6 fL Normal 6.7-10.6 [facility] Comment on above: Performed By: #### C BC #### [address] [address] Platelets (Bld) [#/Vol] 202 x10*3/mcL Normal 150-350 [facility] Comment on above: Performed By: #### C BC #### [address] [address] RBC (Bld) [#/Vol] 4.86 x10*6/mcL Normal 4.30-5.80 [facility] Comment on above: Performed By: #### C #### [facility] [address] [place] [address] WBC (Bld) [#/Vol] 12.8 x10*3/mcL High 4.5-11.0 [facility] Comment on above: Performed By: #### C #### [facility] [address] [place] [address] Cardiology Consultationon Cardiology Consultation Chief Complaint dyspnea [...] data available. Electronically signed by Aleshia BEDOLLA, Lincoln Flynn 11/20/18 16:18 EDT Normal [facility] Agency Operator Progress Noteon 11-20-2018 Agency Operator Progress Note ROSA met with patient before huddles today. He is new to the floor from ER for chest pain. he is asking to go home since unable to do a stress test today. CM will update RN, educated patient on remaining in the hospital while labs are trending for [place]. He does have insurance, independent with adl's, [...] Recieved a call back from Dr. quintana secretary office clerk. Upon discussion, we reviewed patient listed as [...] job established. Refuses to speak to financial planning adviser when CM offered. Offered self pay education pamphlet as well, pt refuses stating he will get it figured out. CM put financial assistance program in chart for Discharge. Electronically signed by Leidy Chapin 11/20/18 14:32 EDT Normal [facility] D-Dimeron 11-20-2018 Fibrin D-dimer FEU IA (Bld) [Mass/Vol] 0.34 mg/L feu Normal 0.00-0.49 [facility] Comment on above: Result Comment: Resu lts of the D-Dimer test should always be interpreted in conjunction with the patient's medical history, clinical presentation, and other findings. Results <0.5 mg/L are considered NEGATIVE for VTE. Results >= 0.5 mg/L require further clinical evaluation. Levels of triglyceride up to 600 mg/dl do not interfere with this D-Dimer assay. Performed By: #### D MARISOL #### [address] [address] Diff Autoon 11-20-2018 Baso Absolute 0.1 x10*3/mcL Normal 0.0-0.2 [facility] Comment on above: Performed By: #### . Automated Diff #### [address] [address] Basophils/100 WBC (Bld) 0.8 % Normal 0.0-1.2 [facility] Comment on above: Performed By: #### . Automated Diff #### [address] [address] Eos Absolute 0.2 x10*3/mcL Normal 0.0-0.4 [facility] Comment on above: Performed By: #### . Automated Diff #### [address] [address] Eosinophils/100 WBC (Bld) 1.9 % Normal 0.0-6.1 [facility] Comment on above: Performed By: #### . Automated Diff #### [address] [address] Lymphocytes (Bld) [#/Vol] 3.5 x10*3/mcL Normal 1.0-4.8 [facility] Comment on above: Performed By: #### . Automated Diff #### [place] [id number] Lymphocytes/100 WBC (Bld) 27.3 % Normal 27.2-40.8 [facility] Comment on above: Performed By: #### . Automated Diff #### [place] [id number] Nicollet Absolute 0.9 x10*3/mcL Normal 0.3-1.1 [facility] Comment on above: Performed By: #### . Automated Diff #### [place] [id number] Monocytes/100 WBC (Bld) 6.9 % Normal 4.7-13.9 [facility] Comment on above: Performed By: #### . Automated Diff #### [place] [address] Neutro Absolute 8.1 x10*3/mcL High 1.8-7.7 [facility] Comment on above: Performed By: #### . Automated Diff #### [place] [address] Neutro Auto 63.1 % Normal 47.2-70.8 [facility] Comment on above: Performed By: #### . Automated Diff #### [place] [address] ED Clinical Summaryon 2018 ED Clinical Summary (Inserted Image. Ale ble to display) [place] [address] ED Clinical Summary Person Information Name: Ahsan Nielsen [facility] Age: 53 Years : 1965 Sex: Male PCP: Marital Status: Single Phone: Race: White Ethnicity: Not or Language: Prydeinig Visit Reason: Dyspnea; Chest pain - Cardiac Acuity: 2 Enc Type: Observation Med Service: Emergency Medicine Arrival: 11/20/2018 07:05:00 Discharge: LOS: 000 01:54 Checkin: 11/20/2018 07:05:00 Checkout: 11/20/2018 08:59:41 Dispo Type: Admitted to ICU Address: [address] [place] [id number] Provider Notes: History of Present Illness Patient [...] Exam negative for acute changes, CVA tenderness. Musculoskeletal/extremity: Extremities: all appear grossly normal, with no [...] range between ( 27.2 and 40.8 ) Nicollet Auto: 6.9 % -- Normal range between [...] range between ( 41.0 and 53.0 ) Nicollet Absolute: 0.9 x10 MCH: 32.5 pg -- [...] Unit, Jen Bey DO Patient Education Information: [facility] Poison Help line: . [facility] Hotline: [place] Tobacco Quit Line: [place], [place]) [address]: [phone] [place]) [address]: [phone] [facility] [address] 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 Musculoskeletal/extremity: Extremities: all appear grossly normal, with no [...] in this document, created by the medical office receptionist assistant for me, accurately reflects the services I [...] from someone other than the patient: Reviewed [facility] EMR to see if recent visits or hospitalizations. Review and summarized past medical records if pertinent and available in [employer]: Data Interpretation: I have have reviewed returned data from lab. Clinically important interpretation is: CBC is unremarkable Basic Metabolic panel with normal renal function, no significant abnormality Coags normal Initial cardiac enzymes negative d-d-marisol neg EKG: EKG time: 706 Rhythm:[normal sinus] Rate:88 [place]:[normal] QRS:81 QT interval:399 ST/T wave changes: No [...] 07:12 63.1 Lymph Auto 11/20/18 07:12 27.3 Nicollet Auto 11/20/18 07:12 6.9 Eos Auto 11/20/18 07:12 1.9 Basophil Auto 11/20/18 07:12 0.8 Neutro Absolute 11/20/18 07:12 8.1 High Lymph Absolute 11/20/18 07:12 3.5 Nicollet Absolute 11/20/18 07:12 0.9 Eos Absolute 11/20/18 [...] 14 Glucose Lvl 11/20/18 07:12 100 BUN 05/17/19 07:12 13 Creatinine Lvl 11/20/18 07:12 0.70 [...] available (MRI) Suad Jones Electronically signed by Miah Ramy HSU Shiva 11/20/2018 08:35 EDT Normal [facility] History and Physicalon 11-20 History and [...] 95.3 (11/20/18) Mean Platelet Volume: 8.6 (11/20/18) Nicollet Absolute: 0.9 (11/20/18) Nicollet Auto: 6.9 (11/20/18) Neutro Absolute: 8.1 (11/20/18) Neutro Auto: 63.1 (11/20/18) PT: 9.7 (11/20/18) PTT: 24.2 (11/20/18) RBC: 4.86 (11/20/18) RDW: 13.0 (11/20/18) Assessment/Plan 1. Chest pain Rule out [place] Stress test Cardiology consult 2. Dyspnea Repeat [...] Gee Jones MD 11/20/18 10:06 EDT Normal [facility] Inpatient Clinical Summaryon 11-20-2018 [place] [address] [place] [address] Clinical Summary Person Information Name: Ahsan Nielsen Age: 53 Years : 1965 Sex: Male PCP: Marital Status: Single Phone: PCP: Race: White Ethnicity: Not or Language: Prydeinig Visit Id: Visit Reason: Dyspnea; Chest pain - Cardiac Speciality: Acuity: Enc Type: Observation Med Service: Emergency Medicine Arrival: 11/20/2018 07:05:00 Discharge: Dispo Type: Admitted to ICU Address: [address] [place] [address] Diagnosis: 1:Chest pain; 2:Dyspnea; 3:Palpitations; 4:Hypertension Discharged [...] range between ( 27.2 and 40.8 ) Nicollet Auto: 6.9 % -- Normal range between [...] range between ( 41.0 and 53.0 ) Nicol[place] Absolute: 0.9 x10 MCH: 32.5 pg -- [...] Attending Physician: Gee Jones MD Consulting Physician: Lincoln Monk MD Referring Physician: Follow up: With: Address: When: Guille Khan [address] [place] [address], [address] [place] [phone] b-datum (1) 11/27/2018 15:00:00 Comments: Appointment Scheduled Type Location Start [facility] Patient Visit 30 Jourdan Redman 11/27/2018 15:00:00 11/27/2018 15:30:00 Confirmed Normal [facility] NM CARDIOLITE W/EXER STRESSo n 11-20-2018 NM CARDIOLITE W/EXER STRESS Myocardial Perfusion Imaging Report Arnie Protocol Height: 178 cm (70.1 in) Weight: 68 kg (149.6 lb) Ordering Physician: Gee Jones Referring Physician: Gee Jones Reading Physician: Lincoln Monk MD Indications: Chest Pain Summary: 1. [...] peak heart rate and blood pressure was [address] mm Hg/min. Stress ECG: The stress ECG [...] fraction is 71 %. Electronically signed by Lincoln Monk MD 11/20/2018 15:37 Final Dictated by: Lincoln Monk MD Dictated DT/TM: 11/20/2018 3:38 pm Signed by: Lincoln Monk MD Signed (Electronic Signature): 11/20/2018 3:38 pm (If Report Is Signed, Electronically Signed in Other Vendor System) Normal [facility] PTon 11-20-2018 INR Coag (PPP) [Relative time] 0.9 {INR} Normal <=3.5 [facility] Comment on above: Result Comment: INR has no normal range. INR Therapeutic range is: 2.0-3.0 (AF, CVA, TIAs, DVT prophylaxis, acute DVT) 2.5-3.5 ([facility] heart valves, recurrent thrombosis/emboli) Performed By: #### P TINR #### [facility] [address] [place] [address] PT Coag (PPP) [Time] 9.7 s Normal 9.2-11.7 [facility] Comment on above: Performed By: #### P TINR #### [facility] [address] [place] [address] PTTon 11-20-2018 aPTT Coag (Bld) [Time] 24.2 s Normal 20.6-27.7 [facility] Comment on above: Performed By: #### P TT #### [facility] [address] [place] [address] XR Chest 1 Viewon 11-20-2018 XR Chest [...] Electronically Signed in Other Vendor System) Normal [facility] XR Chest 2 Viewson 9 XR [...] Dictated DT/TM: 11/20/2018 2:05 pm Signed by: Liz BEDOLLA, Sh[address] Street Signed (Electronic Signature): 11/20/2018 2:08 pm (If Report Is Signed, Electronically Signed in Other Vendor System) Normal [facility] Cult,Urineon 10-25-2017 Cult,Urine Specimen Description .CLEAN CATCH URINE Performed at [address] [place] [address] Special Requests NOT REPORTEDCulture NO GROWTH Performed at [address] [address] Report Status FINAL 10/25/2017 Normal [facility] Comment on above: Performed By: #### U RC ####[address] [phone] [place] [address] CBC with Diffon 10-24-2017 Abs. Basophil 0.05 k/uL Normal 0.00-0.20 [facility] Comment on above: Performed By: #### C DP, CP, LIP ####[address] [place] [address] Abs.Neutrophil (Seg) 5.37 k/uL Normal 1.50-8.10 [facility] Comment on above: Performed By: #### C DP, CP, LIP ####[address] [place] [address] Basophils/100 WBC Auto (Bld) 1 % Normal 0-2 [facility] Comment on above: Performed By: #### C DP, CP, LIP ####[address] [place] [address] Eosinophils 0.57 10*3/uL High 0.00-0.44 [facility] Comment on above: Performed By: #### C DP, CP, LIP ####[address] [place] [address] Eosinophils/100 leukocytes 7 % High 1-4 [facility] Comment on above: Performed By: #### C DP, CP, LIP ####[address] [place] [address] Erythrocyte distribution width Auto Ratio (RBC) 13.4 % Normal 11.8-14.4 [facility] Comment on above: Performed By: #### C DP, CP, LIP ####[address] [place] [address] Erythrocytes (RBC) 0.0 per 100 WBC Normal 0.0 [facility] Comment on above: Performed By: #### C DP, CP, LIP ####[address] [place] [address] Erythrocytes (RBC) 5.69 10*6/uL Normal 4.21-5.77 [facility] Comment on above: Performed By: #### C DP, CP, LIP ####[address] [place] [address] Granulocytes/100 WBC (Bld) 0.04 k/uL Normal 0.00-0.30 [facility] Comment on above: Result Comment: Perf ormed at [address] [place] [address] Performed By: #### C DP, CP, LIP ####[address] [place] [address] Hematocrit (HCT) 51.0 % High 40.7-50.3 [facility] Comment on above: Performed By: #### C DP, CP, LIP ####[address] [place] [address] Hemoglobin mass conc (Bld) 18.0 g/dL High 13.0-17.0 [facility] Comment on above: Performed By: #### C DP, CP, LIP ####[address] [place] [address] Immature granulocytes #/vol (Bld) 1 % High 0 [facility] Comment on above: Performed By: #### C DP, CP, LIP ####[address] , [place] [address] Lymphocytes 1.35 10*3/uL Normal 1.10-3.70 [facility] Comment on above: Performed By: #### C DP, CP, LIP ####[address] , [place] [address] Lymphocytes/100 leukocytes 15 % Low 24-43 [facility] Comment on above: Performed By: #### C DP, CP, LIP ####[address] , [place] [address] MCH 31.6 pg Normal 25.2-33.5 [facility] Comment on above: Performed By: #### C DP, CP, LIP ####[address] , [place] [address] MCHC mass conc (RBC) 35.3 g/dL High 28.4-34.8 [facility] Comment on above: Performed By: #### C DP, CP, LIP ####[address] , [facility] MCV 89.6 fL Normal 82.6-102.9 [facility] Comment on above: Performed By: #### C DP, CP, LIP ####[address] , [place] [address] Monocytes 1.36 10*3/uL High 0.10-1.20 [facility] Comment on above: Performed By: #### C DP, CP, LIP ####[address] [place] [address] Monocytes/100 leukocytes 16 % High 3-12 [facility] Comment on above: Performed By: #### C DP, CP, LIP ####[address] , [place] [address] Neutrophil (Seg) 61 % Normal 36-65 [facility] Comment on above: Performed By: #### C DP, CP, LIP ####[address] [place] [address] Platelet mean volume (PMV) 10.5 fL Normal 8.1-13.5 [facility] Comment on above: Performed By: #### C DP, CP, LIP ####[address] [place] [address] Platelets 186 10*3/uL Normal 138-453 [facility] Comment on above: Performed By: #### C DP, CP, LIP ####[address] [place] [address] WBC (Leukocytes) 8.7 10*3/uL Normal 3.5-11.3 [facility] Comment on above: Performed By: #### C DP, CP, LIP ####[address] [place] [address] Auto Diff Performed NOT REPORTED Normal [facility] Comment on above: Performed By: #### C DP, CP, LIP ####[address] [place] [address] Erythrocyte morphology NOT REPORTED Normal [facility] Comment on above: Performed By: #### C DP, CP, LIP ####[address] [place] [address] Platelets NOT REPORTED Normal [facility] Comment on above: Performed By: #### C DP, CP, LIP ####[address] [place] [address] WBC Morphology NOT REPORTED Normal [facility] Comment on above: Performed By: #### C DP, CP, LIP ####[address] [place] [address] Comp Metabolic Profon 2017 (cont.) Normal [facility] Comment on above: Result Comment: Aver age GFR for 50-59 years old: 93 mL/min/1.73sq mChronic Kidney Disease: <60 mL/min/1.73sq mKidney failure: <15 mL/min/1.73sq meGFR calculated using average adult body mass. Additional eGFR calculator available at:http://www.[employer]/multiple_crcl_2012.htm Performed By: #### C DP, CP, LIP ####[address] [place] [address] Alanine aminotransferase (ALT) 18 U/L Normal 5-41 [facility] Comment on above: Performed By: #### C DP, CP, LIP ####[address] [place] [address] Albumin 4.2 g/dL Normal 3.5-5.2 [facility] Comment on above: Performed By: #### C DP, CP, LIP ####[address] [place] [address] Albumin/Globulin Ratio 1.2 {ratio} Normal 1.0-2.5 [facility] Comment on above: Performed By: #### C DP, CP, LIP ####[address] [place] [address] Alkaline Phos 74 U/L Normal 40-129 [facility] Comment on above: Performed By: #### C DP, CP, LIP ####[address] [place] [address] Anion gap 16 mmol/L Normal 9-17 [facility] Comment on above: Performed By: #### C DP, CP, LIP ####[address] [place] [address] Aspartate aminotransferase (AST) 24 U/L Normal <40 [facility] Comment on above: Performed By: #### C DP, CP, LIP ####[address] [place] [address] Bilirubin Ql (U) 0.64 mg/dL Normal 0.3-1.2 [facility] Comment on above: Performed By: #### C DP, CP, LIP ####[address] [place] [address] BUN/CRE Ratio 15 Normal 9-20 [facility] Comment on above: Performed By: #### C DP, CP, LIP ####[address] [place] [address] Calcium 9.2 mg/dL Normal 8.6-10.4 [facility] Comment on above: Performed By: #### C DP, CP, LIP ####[address] [place] [address] Chloride 91 mmol/L Low 98-107 [facility] Comment on above: Performed By: #### C DP, CP, LIP ####[address] [place] [address] CO2 23 mmol/L Normal 20-31 [facility] Comment on above: Performed By: #### C DP, CP, LIP ####[address] [place] [address] Creatinine 0.94 mg/dL Normal 0.70-1.20 [facility] Comment on above: Performed By: #### C DP, CP, LIP ####[address] [place] [address] eGFR (non-black) mL/min/{1.73_m2} Normal >[address] [facility] Comment on above: Performed By: #### C DP, CP, LIP ####[address] [place] [address] Glucose mass conc 113 mg/dL High 70-99 [facility] Comment on above: Performed By: #### C DP, CP, LIP ####[address] [place] [address] Potassium molar conc 4.8 mmol/L Normal 3.7-5.3 [facility] Comment on above: Performed By: #### C DP, CP, LIP ####[address] [place] [address] Protein 7.6 g/dL Normal 6.4-8.3 [facility] Comment on above: Performed By: #### C DP, CP, LIP ####[address] [place] [address] Sodium 130 mmol/L Low 135-144 [facility] Comment on above: Performed By: #### C DP, CP, LIP ####[address] [place] [address] Staging: Normal [facility] Comment on above: Result Comment: Stag e 1: Some kidney damage normal GFRStage 2: Mild kidney damage GFR 60-89Stage 3: Moderate kidney damage GFR 30-59Stage 4: Severe kidney damage GFR 15-29Stage 5: Severe kidney damage GFR <15ESRD - chronic treatment by dialysis or transplantPerformed at [address] [place] [address] Performed By: #### C DP, CP, LIP ####[address] [place] [address] Urea nitrogen 14 mg/dL Normal 6-20 [facility] Comment on above: Performed By: #### C DP, CP, LIP ####[address] [place] [address] Lipaseon 10-24-2017 Lipase 27 U/L Normal 13-60 [facility] Comment on above: Result Comment: Perf ormed at [address] [place] [address] Performed By: #### C DP, CP, LIP ####[address] [place] [address] Urinalysis w/ Microon 2017 ----- Normal [facility] Comment on above: Performed By: #### U AMIC ####[address] [place] [address] Acetaminophen mass conc 1+ Abnormal NEG [facility] Comment on above: Performed By: #### U AMIC ####[address] [place] [address] Bilirubin (direct) Negative Normal NEG [facility] Comment on above: Performed By: #### U AMIC ####[address] [place] [address] Hemoglobin mass conc (Bld) Negative Normal NEG [facility] Comment on above: Performed By: #### U AMIC ####[address] [place] [address] Nitrite,Ur Negative Normal NEG [facility] Comment on above: Performed By: #### U AMIC ####[address] [place] [address] Turbidity CLEAR Normal CLEAR [facility] Comment on above: Performed By: #### U AMIC ####[address] [place] [address] Urine WBC's 0 TO 2 Normal 0-5 [facility] Comment on above: Performed By: #### U AMIC ####[address] [place] [address] Urine, color YELLOW Normal YEL [facility] Comment on above: Performed By: #### U AMIC ####[address] [place] [address] Urine, epithelial cells in sediment 0 TO 2 Normal 0-5 [facility] Comment on above: Result Comment: Perf ormed at [address] [place] [address] Performed By: #### U AMIC ####[address] [place] [address] Urine, erythrocytes 0 TO 2 Normal 0-2 [facility] Comment on above: Performed By: #### U AMIC ####[address] [place] [address] Urine, glucose presence Negative Normal NEG [facility] Comment on above: Performed By: #### U AMIC ####[address] [place] [address] Urine, leukocyte esterase presence Negative Normal NEG [facility] Comment on above: Performed By: #### U AMIC ####[address] [place] [address] Urine, pH 6.5 [pH] Normal 5.0-9.0 [facility] Comment on above: Performed By: #### U AMIC ####[address] [place] [address] Urine, protein presence Negative Normal NEG [facility] Comment on above: Performed By: #### U AMIC ####[address] [place] [address] Urine, specific gravity <1.005 Low 1.010-1.02 0 [facility] Comment on above: Performed By: #### U AMIC ####[address] [place] [address] Urobilinogen,Ur Normal Normal NORM [facility] Comment on above: Performed By: #### U AMIC ####[address] [place] [address] Comment NOT REPORTED Normal [facility] Comment on above: Performed By: #### U AMIC ####[address] [place] [address] Epithelial, Renal NOT REPORTED Normal 0 [facility] Comment on above: Performed By: #### U AMIC ####[address] [place] [address] Mucus Strands NOT REPORTED Normal NONE [facility] Comment on above: Performed By: #### U AMIC ####[address] [place] [address] Other Observations NOT REPORTED [facility] Comment on above: Performed By: #### U AMIC ####[address] [place] [address] Trichomonas NOT REPORTED Normal NONE [facility] Comment on above: Performed By: #### U AMIC ####[address] [place] [address] Urine, amorphous sediment presence in sediment NOT REPORTED Normal NONE [facility] Comment on above: Performed By: #### U AMIC ####[address] [place] [address] Urine, bacteria in sediment NOT REPORTED Normal NONE [facility] Comment on above: Performed By: #### U AMIC ####[address] [place] [address] Urine, casts in sediment NOT REPORTED Normal [facility] Comment on above: Performed By: #### U AMIC ####[address] [place] [address] Urine, crystals in sediment NOT REPORTED Normal 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 Normal [facility] Vital Signs Date Time Vital Sign Value Performing Clinician Gerard freeman 06-15-2024 15:57-0500 Body height 177.8 cm Michelle Banuelos GERIATRIC PSYCHIATRIST Work Phone: [facility] 06-15-2024 15:57-0500 Body mass index (BMI) [Ratio] 25.54 kg/m2 Michelle Banuelos GERIATRIC PSYCHIATRIST Work Phone: [facility] 06-15-2024 15:57-0500 Body weight 80.74 kg Michelle Banuelos GERIATRIC PSYCHIATRIST Work Phone: [facility] 06-15-2024 15:57-0500 Diastolic blood pressure 64 mm[Hg] Michelle Banuelos GERIATRIC PSYCHIATRIST Work Phone: [facility] 06-15-2024 15:57-0500 Heart rate 69 /min Michelle Banuelos GERIATRIC PSYCHIATRIST Work Phone: [facility] 06-15-2024 15:57-0500 SaO2% (BldA) [Mass fraction] 96 % Michelle Banuelos GERIATRIC PSYCHIATRIST Work Phone: [facility] 06-15-2024 15:57-0500 Systolic blood pressure 116 mm[Hg] Michelle Banuelos GERIATRIC PSYCHIATRIST Work Phone: [facility] 03-25-2024 10:10-0400 Body height 177.8 cm PRIMO Corbin McNeal Work Phone: [facility] 03-25-2024 10:10-0400 Body mass index (BMI) [Ratio] 25.1 kg/m2 TRAFFIC SURVEY TECHNICIANKarissa Corbin Miranda Work Phone: [facility] 03-25-2024 10:10-0400 Body weight 79.37 kg TRAFFIC SURVEY TECHNICIANKarissa Corbin Miranda Work Phone: [facility] 03-23-2024 16:25-0400 Body height 177.8 cm Michelle Banuelos GERIATRIC PSYCHIATRIST Work Phone: [facility] 03-23-2024 16:25-0400 Body mass index (BMI) [Ratio] 25.34 kg/m2 Michelle Banuelos GERIATRIC PSYCHIATRIST Work Phone: [facility] 03-23-2024 16:25-0400 Body weight 80.11 kg Michelle Banuelos GERIATRIC PSYCHIATRIST Work Phone: [facility] 03-23-2024 16:25-0400 Diastolic blood pressure 76 mm[Hg] Michelle Banuelos GERIATRIC PSYCHIATRIST Work Phone: [facility] 03-23-2024 16:25-0400 Heart rate 88 /min Michelle Banuelos GERIATRIC PSYCHIATRIST Work Phone: [facility] 03-23-2024 16:25-0400 SaO2% (BldA) [Mass fraction] 96 % Michelle Banuelos GERIATRIC PSYCHIATRIST Work Phone: [facility] 03-23-2024 16:25-0400 Systolic blood pressure 126 mm[Hg] Michelle Banuelos GERIATRIC PSYCHIATRIST Work Phone: [facility] 02-24-2024 12:45-0400 Body height 177.8 cm Michelle Banuelos GERIATRIC PSYCHIATRIST Work Phone: [facility] 02-24-2024 12:45-0400 Body mass index (BMI) [Ratio] 25.31 kg/m2 Michelle Banuelos GERIATRIC PSYCHIATRIST Work Phone: [facility] 02-24-2024 12:45-0400 Body weight 80.02 kg Michelle Banuelos GERIATRIC PSYCHIATRIST Work Phone: [facility] 02-24-2024 12:45-0400 Diastolic blood pressure 74 mm[Hg] Michelle Banuelos GERIATRIC PSYCHIATRIST Work Phone: [facility] 02-24-2024 12:45-0400 Heart rate 58 /min Michelle Banuelos GERIATRIC PSYCHIATRIST Work Phone: [facility] 02-24-2024 12:45-0400 SaO2% (BldA) [Mass fraction] 90 % Michelle Banuelos GERIATRIC PSYCHIATRIST Work Phone: [facility] 02-24-2024 12:45-0400 Systolic blood pressure 122 mm[Hg] Michelle Banuelos GERIATRIC PSYCHIATRIST Work Phone: [facility] Healthcare Encounters Encounter Date Encounter Type Care Provider Facility Start: 07-12-2024 End: 07-12-2024 ambulatory [facility] Start: 06-15-2024 End: 06-15-2024 Office outpatient visit 15 minutes Michelle Banuelos GERIATRIC PSYCHIATRIST Work Phone: [facility] [address] Comment on above: Loss of consciousnes s (CMS/HCC) (Primary Dx); Orthostatic hypotension; Episodic migraine (CMS/HCC); Abnormal finding on MRI of brain; History of hepatitis B; Numbness of right lower extremity Start: 06-15-2024 End: 06-15-2024 ambulatory MICHELLE CELSO Not Available Start: 05-05-2024 End: 05-05-2024 Patient encounter procedure TRAFFIC SURVEY TECHNICIAN Emerald Miranda Work Phone: [facility] [place] Work Phone: Start: 05-05-2024 End: 05-05-2024 ambulatory TRAFFIC SURVEY TECHNICIAN Emerald Miranda Work Phone: [facility] Work Phone: Start: 04-03-2024 End: 04-03-2024 Patient encounter procedure TRAFFIC SURVEY TECHNICIAN Emerald Miranda Work Phone: [facility] [place] Work Phone: Start: 04-03-2024 End: 04-03-2024 ambulatory TRAFFIC SURVEY TECHNICIAN Emerald Miranda Work Phone: [facility] Work Phone: Start: 03-31-2024 End: 03-31-2024 Patient encounter procedure TRAFFIC SURVEY TECHNICIAN Emerald Miranda Work Phone: [facility] Work Phone: Start: 03-31-2024 End: 03-31-2024 ambulatory TRAFFIC SURVEY TECHNICIAN Emerald Miranda Work Phone: [facility] Work Phone: Start: 03-29-2024 End: 03-29-2024 ambulatory MICHELLE CELSO Not Available Start: 03-25-2024 End: 03-25-2024 Patient encounter procedure PRIMO Corbin McNeal Work Phone: [facility] [place] Work Phone: Start: 03-25-2024 End: 03-25-2024 ambulatory PRIMO Corbin McNeal Work Phone: [facility] Work Phone: Start: 03-25-2024 End: 03-25-2024 Patient encounter procedure PRIMO Corbin McNeal Work Phone: [facility] Work Phone: Start: 03-23-2024 End: 03-23-2024 ambulatory MICHELLE CELSO Not Available Start: 03-23-2024 End: 03-23-2024 Office outpatient visit 25 minutes Michelle Banuelos GERIATRIC PSYCHIATRIST Work Phone: [employer] [facility] Comment on above: Loss of consciousnes s (CMS/HCC) (Primary Dx); Orthostatic hypotension; Abnormal finding on MRI of brain; History of hepatitis B; Numbness of right lower extremity Start: 03-23-2024 End: 03-23-2024 Bamboo flowsheet Michelle Banuelos GERIATRIC PSYCHIATRIST Work Phone: [facility] [address] Start: 03-23-2024 End: 03-23-2024 Bamboo flowsheet Michelle Celso GERIATRIC PSYCHIATRIST Work Phone: [employer] [address] Start: 03-10-2024 End: 03-10-2024 ambulatory [facility] Start: 03-04-2024 End: 03-04-2024 ambulatory JAMAICA BORGES Not Available Start: 03-01-2024 End: 03-01-2024 ambulatory MICHELLE BANUELOS Not Available Start: 02-24-2024 End: 02-24-2024 Bamboo flowsheet Michelle Banuelos GERIATRIC PSYCHIATRIST Work Phone: [employer] [address] Start: 02-24-2024 End: 02-24-2024 Bamboo flowsheet Michelle Banuelos GERIATRIC PSYCHIATRIST [facility] [place] [facility] Start: 02-24-2024 End: 02-24-2024 Office outpatient visit 25 minutes Michelle Banuelos GERIATRIC PSYCHIATRIST Work Phone: [facility] e [facility] Access [facility] Comment on above: Loss of consciousnes s (CMS/HCC) (Primary Dx); Orthostatic hypotension; Abnormal finding on MRI of brain; Numbness of right lower extremity; History of hepatitis B Start: 02-24-2024 End: 02-24-2024 ambulatory MICHELLE BANUELOS Not Available Start: 02-06-2024 End: 02-06-2024 Patient encounter procedure PRIMO Jean Work Phone: [facility] [place] Work Phone: Start: 02-06-2024 End: 02-06-2024 ambulatory PRIMO Jean Work Phone: [facility] Work Phone: Start: 02-03-2024 End: 02-03-2024 ambulatory CHRISTBELLAER SHYANN Not Available Start: 02-02-2024 End: 02-02-2024 ambulatory MICHELLE BANUELOS Not Available Start: 01-20-2024 End: 01-20-2024 ambulatory MICHELLE BANUELOS Not Available Start: 01-19-2024 End: 01-19-2024 ambulatory [facility] Start: 12-24-2023 End: 12-24-2023 ambulatory CHRISTOPHER SHYANN Not Available Start: 12-23-2023 End: 12-23-2023 ambulatory CHRISTOPHER SHYANN Not Available Start: 12-15-2023 Non-patient / Non-visit PRIMO Jean Work Phone: [facility] Work Phone: Start: 12-10-2023 End: 12-10-2023 ambulatory [facility] Start: 11-20-2018 End: 11-20-2018 Patient encounter procedure GEE JONES Facility:[facility] Start: 10-24-2017 End: 10-24-2017 Emergency department patient visit ANABEL C [facility] Start: 12-27-2016 End: 12-28-2016 Ambulatory [facility]NABEL Abdullahi [facility] Procedures Date Procedure Procedure Detail Performing Clinician Start: 04-03-2024 Ultrasonography of liver TRAFFIC SURVEY TECHNICIAN Emerald Jean Work Phone: Start: 03-31-2024 Ultrasound elastogra phy of liver TRAFFIC SURVEY TECHNICIAN Emerald Jean Work Phone: Start: 02-06-2024 MRI of head TRAFFIC SURVEY TECHNICIAN Emerald Jean Work Phone: Start: 10-24-2017 NURSING COMMUNICATION S RAINA LONG Start: 10-24-2017 URINALYSIS WITH MICROSCOPIC ANABEL LONG Start: 10-24-2017 URINE CULTURE ANABEL ANU LACY Start: 10-24-2017 CBC WITH AUTO DIFFERENTIAL ANABEL LONG Start: 10-24-2017 COMPREHENSIVE METABO LIC PANEL ANABEL MANCILLALAND Start: 10-24-2017 LIPASE ANABEL DELGADILLO Start: 10-24-[address] EVEN LONG Plan of Treatment Date Care Activity Detail Author Start: 12-21-2024 End: 12-21-2024 Patient encounter procedure 12/21/2024 9:40 AM EDT Office Visit [facility] [address] [place] [address], [place] [phone] Michelle Banuelos NP [address] [place] [address] [facility] [address] Start: 06-15-2024 End: 06-15-2024 Patient encounter procedure 06/15/2024 4:00 PM EST Office Visit [facility] [address] [place] [phone] Michelle Banuelos NP [address] [place] [address] [facility] [address] Start: 05-05-2024 MR Abdomen WO and W contrast IV [facility] Start: 05-05-2024 MRI of abdomen with contrast MR abdomen wo/w con [facility] Start: 03-31-2024 [facility] Start: 03-29-2024 End: 03-29-2024 Clinical Support 03/29/2024 8:40 AM EDT Clinical Support [facility] [address] [phone] [facility] Start: 03-25-2024 Ceruloplasmin [Mass/volume] in Serum or Plasma [facility] Start: 03-25-2024 Hepatitis A virus Ab [Presence] in Serum by Immunoassay [facility] Start: 03-25-2024 Hepatitis A virus antibody, IgM type [facility] Start: 03-25-2024 Hepatitis B core antibody measurement [facility] Start: 03-25-2024 Hepatitis B core antibody measurement, IgM type [facility] Start: 03-25-2024 Hepatitis B virus e Ab [Presence] in Serum or Plasma by Immunoassay [facility] Start: 03-25-2024 Hepatitis B virus e Ag [Presence] in Serum or Plasma by Immunoassay [facility] Start: 03-25-2024 Hepatitis B virus surface Ab [Presence] in Serum [facility] Start: 03-25-2024 Measurement of Hepat itis delta virus antibody [facility] Start: 03-25-2024 [facility] Start: 03-23-2024 End: 03-23-2024 Patient encounter procedure 03/23/2024 4:20 PM EDT Office Visit [facility] [address] [phone] Michelle Banuelos NP [address] [phone] [facility] Start: 03-23-2024 End: 03-23-2025 US.doppler Carotid arteries - bilateral Vascular US carotid artery duplex bilateral Imaging Routine Loss of consciousness (CMS/HCC) Expected: 03/23/2024 (Approximate), Expires: 03/23/2025 [facility] Healthcare Work Phone: Comment on above: Expected: 03/23/2024 (Approximate), Expires: 03/23/2025 Start: 03-04-2024 End: 03-04-2024 Clinical Support 03/04/2024 8:00 AM EDT [facility] [address] [place] [address] [facility] Start: 03-01-2024 End: 03-01-2024 Professional / ancillary services management 03/01/2024 2:45 PM EDT Ancillary [facility] [address] [place] [address] [facility] Start: 02-24-2024 End: 02-23-2025 Home EEG 36-84 Hours Home EEG 36-84 Hours Neurology Routine Loss of consciousness (CMS/HCC) Expected: 02/24/2024 (Approximate), Expires: 02/23/2025 [facility] Healthcare Work Phone: Comment on above: Expected: 02/24/2024 (Approximate), Expires: 02/23/2025 Start: 02-24-2024 End: 02-24-2024 Patient encounter procedure 02/24/2024 1:00 PM EDT [facility] [address] [facility] [place] [address] Michelle Banuelos, GERIATRIC PSYCHIATRIST [address] [place] [phone] Arrived [facility] Comment on above: Arrived Alpha 1 antitrypsin [Mass/volume] in Serum or Plasma [facility] Alpha 1 antitrypsin phenotyping [Identifier] in Serum or Plasma by Immunofixation [facility] Hepatitis B virus DN A [#/volume] (viral load) in Serum or Plasma by CHAUNCEY with probe detection [facility] Hepatitis B virus DN A [log units/volume] (viral load) in Serum or Plasma by CHAUNCEY with probe detection [facility] Hepatitis B virus DN A [Units/volume] (viral load) in Serum or Plasma by CHAUNCEY with probe detection [facility] Hepatitis B virus surface Ag [Presence] in Serum or Plasma by Immunoassay [facility] Hepatitis C virus Ig G Ab [Presence] in Serum or Plasma by Immunoassay [facility] HFE gene mutations f ound [Identifier] in Blood or Tissue by Molecular genetics method Nominal [facility] HIV 1+2 Ab+HIV1 p24 Ag [Presence] in Serum or Plasma by Immunoassay [facility] Payers Date Payer Category Payer Medicaid [facility] MEDICAID [place] [id number] 2020-Present [address] [place] [address] [id number] 2020 Medicaid (Managed Care) [employer] [id number] 2018 Self-pay 2016 Unknown [id number] 2015 Unknown [id number] 1964 Unknown [id number]. 196 1964 Unknown [id number] .[id number]. 125 1964 Unknown [id number] 2.840.1.545482.3.579.2. 1259 1964 Unknown [id number] 2.840.1.390802.3.579.2. 1258 1964 Unknown [id number] 2.840.1.102695.3.579.2. 1259 1964 Unknown [id number] 2.840.1.544259.3.579.2. 1259 1964 Unknown [id number] 2.16.840.1.986305.3.579.2. 1259 1964 Unknown [id number] 2.16.840.1.991341.3.579.2. 1259 1964 Unknown [id number] 2.16.840.1.574512.3.579.2. 1259 1964 Unknown [id number] 2.16.840.1.807402.3.579.2. 1259 1964 Unknown [id number] 2.16.840.1.599945.3.579.2. 1259 1964 Unknown [id number] 2.16.840.1.807595.3.579.2. 1259 Unknown [id number] 2.16.840.1.625439.3.579.2. 531 Unknown [id number] 2.16.840.1.725619.3.579.2. 531 Unknown [id number] 2.16.840.1.087413.3.579.2. 531 Unknown [id number] 2.16.840.1.419492.3.579.2. 531 Unknown [id number] 2.16.840.1.645536.3.579.2. 531 Social History Date Type Detail Facility Tobacco smoking stat [facility] Unknown if ever smoked [facility] Work Phone: Start: 1965 Sex Assigned At Male F [facility] Start: 1980 End: 03-23-2024 Tobacco smoking status MSIS Smokes tobacco daily [facility] Start: 1980 End: 03-21-2024 History of tobacco use Cigarette Smoker [facility] Start: 01-20-2024 End: 03-23-2024 Tobacco use and exposure Smokeless tobacco non-user [facility] Start: 01-20-2024 End: 02-24-2024 Alcoholic beverage intake Current drinker of alcohol (finding) [facility] Start: 01-20-2024 End: 02-24-2024 Alcoholic beverage intake [facility] Start: 01-20-2024 End: 02-24-2024 Tobacco use panel [facility] Start: 1965 Sex assigned at Not on file [facility] Healthcare Goals Date Patient Goal Desired Activity /State Clinical Notes 12-10-2023 to 07-12-2024 Michelle BanuelosNEL - 06/15/2024 4:00 PM EST Note Date & Type Note Facility 07-12-2024 Note [facility] Note Reason for cardiology visit: Patient here for follow up Chief Complaint: Palpitations with chest pain HPI: 07/12/2024 Patient is here today for follow-up visit. He states that his still has occasional palpitations which occurs randomly and is associated with little lightheadedness and chest discomfort. He denies chest discomfort with exertion per se. He still has exertional dyspnea however it is getting better. He cut down on smoking to less than 1 pack/day. He is not drinking alcohol anymore. He denies orthopnea or paroxysmal nocturnal dyspnea or legs edema or leg discomfort on exertion 03/10/2024 Patient reports that he has been [...] blood pressure has been good 01/19/2024 Ahsan Nielsen is a 58 y.o. male who is [...] lower dose of metoprolol. Visit 12/10/2023 Ahsan Nielsen is a 58 y.o. male without prior cardiac history. Hypertension was diagnosed recently and he was started on lisinopril. He denies history of hyperlipidemia or diabetes mellitus. He is a longtime smoker. He presented to [facility] ED last month for syncope. He says [...] Current Outpatient Medications Medication Sig Dispense Refill albuterol 90 mcg/actuation inhaler Inhale 2 puffs every 4 (four) hours if needed. amLODIPine-benazepriL (LotreL) 10-20 mg capsule Take 1 capsule by mouth in the morning. 30 capsule 11 Anoro Ellipta 62.5-25 mcg/actuation blister with device Inhale 1 puff in the morning. metoprolol succinate XL (Toprol-XL) 50 mg 24 [...] Recorded Vitals Visit Vitals Visit Vitals BP 137/72 (BP Location: Right arm, Patient Position: Sitting) Pulse 62 Ht 1.778 m (5' 10 ) Wt 80.7 kg (178 lb) (more content not included)... [facility] 06-15-2024 History of Present illness Narrative Images from the original note were not included. Chief Complaint Patient presents with Dizziness Headache Subjective Ahsan Nielsen is a 58 y.o. male. History of Present Illness The patient presents today for follow up. He is accompanied by his . He had a carotid ultrasound completed for review. He continues to follow with cardiology, pulmonology, and gastroenterology. He was most recently evaluated in our office for follow up on 03/23/2024. He denies any seizure-like activity or loss of consciousness since that time. He reports intermittent dizziness but states this only occurs after significant coughing spells. He believes he stays well hydrated. The patient has approximately 2 to 3 headaches per week. These are chronic and started many years ago. He states they are located in the occipital region or, between the eyes. He describes them as throbbing. Severity is mild. They are accompanied by increased sensitivity to light and sounds. They are not accompanied by nausea, vomiting, visual disturbance, numbness, or weakness. They are aggravated by physical activity and relieved by quiet environments and rest. The patient denies waking up with headaches. He takes Tylenol 1,000 mg as needed, and this provides benefit for his symptoms. He denies any further new concerns. Review of Systems Constitutional: Negative for appetite change, chills, fatigue, fever and unexpected weight change. HENT: Negative for trouble swallowing and voice change. Eyes: Negative for visual change, double vision, or loss of vision Respiratory: Positive for cough and shortness of breath (upon exertion - following with pulmonology). Negative for wheezing. Cardiovascular: Negative for chest pain and palpitations. Gastrointestinal: Negative for abdominal pain, blood in stool, nausea and vomiting. Musculoskeletal: Negative for arthralgias, gait problem and myalgias. Neurological: Positive for dizziness, light-headedness and headaches (accompanied by photophobia and phonophobia). Negative for tremors, seizures, syncope, facial asymmetry, speech difficulty, weakness and numbness. Psychiatric/Behavioral: Negative for confusion, hallucinations and suicidal ideas. The patient is not nervous/anxious. Home Medication List albuterol HFA 90 mcg/act inhaler amlodipine-benazepril 10-20 MG capsule; Commonly known as: Lotrel Anoro Ellipta 62.5-25 MCG/ACT aerosol power EPINEPHrine (Epipen) 0.3 MG/0.3 ML injection syringe metoprolol succinate XL 50 MG 24 hr tablet; Commonly known as: Toprol-XL Past Medical History: Diagnosis Date Dyspnea on exertion Elevated liver enzymes Fatty liver Hepatitis B Hypertension (CMS/HCC) Orthostatic hypotension Syncope Tobacco use Past Surgical History: Procedure Laterality Date ROTATOR CUFF REPAIR No family history on file. Social History Tobacco Use Smoking status: Every Day Current packs/day: 0.00 Average packs/day: 1 pack/day for 44.7 years (44.7 ttl pk-yrs) Types: Cigarettes Start date: 1979 Last attempt to quit: 03/21/2024 Years since quittin.2 Smokeless tobacco: Never Substance Use Topics Alcohol use: Yes Alcohol/week: 2.0 standard drinks of alcohol Types: 2 Standard drinks or equivalent per week Allergies: Hornet venom Vitals: 06/15/24 1557 BP: 116/64 Pulse: 69 SpO2: 96% Body mass index is 25.54 kg/m . weight: 178 lb Neurologic exam: Mental status and general appearance: Awake and alert with unlabored respirations. Oriented to person, place, and time. Recent and remote memory are intact. Speech is clear and fluent without aphasia. Speech is non-dysarthric. Attention and concentration are normal. Fund of knowledge is appropriate for level of education. Pleasant. Cranial nerves: CN II: Visual acuity is normal. Visual tinoco full to confrontation. CN III, IV, : Pupils are equal, round, and reactive to light. Extraocular movements intact. No ptosis present. CN V: Facial sensation is normal. CN VII: Full and symmetric facial movement. CN VIII: Hearing is normal to finger rub bilaterally. CN IX and X: Palate elevates symmetrically. CN XI: Shoulder shrug is normal bilaterally. CN XII: Tongue is midline without atrophy or fasciculation. Motor: RUE strength deltoid , biceps , triceps , wrist extensors , wrist flexor , and feeder tender strength 5/5. LUE strength deltoid , biceps , triceps , wrist extensors , wrist flexor , and feeder tender strength 5/5. RLE strength iliopsoas, quadriceps, tibialis anterior, and plantar flexion strength 5/5. LLE strength iliopsoas, quadriceps, tibialis anterior, and plantar flexion strength 5/5. Tone is normal. Sensory: Sensation is intact to light touch throughout all four extremities. Sensation is intact to temperature in all extremities. Reflexes: RUE biceps reflex 2+ , brachioradialis reflex 2+. LUE biceps reflex 2+ , brachioradialis reflex 2+. RLE Knee reflex 2+. LLE Knee reflex 2+. Coordination: [id number] testing normal. Rapid alternating movements are normal. Gait: Normal. Review and summary of old records: Carotid ultrasound at [facility] on 03/29/24: No hemodynamically significant stenosis noted. 1-29% stenosis right and left ICA. Antegrade flow right and left VA. Normal triphasic waveforms noted right and left SCA. Focal area of calcific plaque in the proximal ICAs bilaterally. Ambulatory EEG in 02/2024: Normal 65-hour ambulatory EEG. Orthostatic vital signs at [facility] on 02/24/2024: Positive. Laying - blood pressure 108/71, heart rate 57 beats/min Sitting - blood pressure 144/82, heart rate 59 beats/min Standing for 3 minutes - blood pressure 120/72, heart rate 62 beats/min MRI of the brain w and w/o contrast at [facility] on 02/06/2024: A punctate microhemorrhage seen involving left parietal lobe on the GRE imaging. Cortical atrophy with mild chronic microvascular ischemic changes which appeared to extend into the kylee. EMG of the right lower extremity at [facility] on 02/03/2024: Normal. No evidence of a lumbar radiculopathy or generalized process such as polyneuropathy or myopathy. Unable to exclude a lesion of the lateral femoral cutaneous nerve on the right. 2-hr EEG on 02/02/2024: Normal. Event monitor from 12/10/2023 through 01/09/2024 (per cardiology note): Sinus rhythm with heart rate 40 to 165 beats/min. Average heart rate of 76 beats/min. Rare PACs and PVCs. 1 episode of nonsustained V. tach consisted of 4 beats, asymptomatic. 1 event reported by the patient and was associated with normal sinus rhythm and 1 PAC and 1 PVC at a heart rate 88 beats/min. Routine EEG on 12/24/2023: Normal. EKG on 11/22/2023 (per cardiology note): Normal sinus rhythm. Heart rate 67 beats/min. Dr. Borges reviewed cardiology notations documented that the cardiology believes the patient may have suffered orthostatic hypotension secondary to dehydration. They were going to evaluate for tachy and bradyarrhythmias. They were going to obtain echocardiogram laboratory evaluation and 30 day event monitor. They are also continuing treatment with Toprol-XL and lisinopril. Assessment/Plan Diagnoses and all orders for this visit: Loss of consciousness (CMS/[facility]) The patient has a history of episodic loss of consciousness. Most recent episode was in November 2023. Given the fact that all of his syncopal episodes occurred while standing, I have suspicion for syncope related to orthostatic hypotension. Extensive evaluation has not identified an alternative etiology to explain his episodes. Per documentation from the cardiology team, 30-day event monitor from 12/2023 through 01/2024 did not reveal significant arrhythmias aside from rare PACs and PVCs and 1 nonsustained V. tach (4 beats), and these did not have any associated symptoms. EKG on 11/22/23 identified normal sinus rhythm. Carotid ultrasound on 03/29/24 identified no hemodynamically significant stenosis. Routine EEG, 2-hr EEG, and ambulatory EEG were also normal, and this lowers the likelihood of seizure. PLAN: - Monitor clinically - See orthostatic hypotension below Orthostatic hypotension The patient has a history of orthostatic hypotension possibly secondary to dehydration. 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 Symptoms have significantly improved with increased water intake, and he denies any dizziness, lightheadedness, or syncope since the prior neurology appointment. PLAN: - Follow up with cardiology for management - Ensure adequate water intake and hydration - Change positions slowly Episodic migraine (CMS/HCC) It is my impression that the patient has episodic migraine. He reports symptoms clinically consistent with this. He seems to have approximately 2 to 3 migraines per week, and these are effectively relieved by [id number] Tylenol. He denies any atypical headache features, and neurologic exam is unremarkable today. PLAN: - I offered to prescribe a medication to help with migraine prevention. The patient politely declined any prescription medications and stated his headaches are tolerable Abnormal finding on MRI of brain MRI of the brain on 02/06/24 revealed a punctate microhemorrhage involving the left parietal lobe. The patient is seemingly asymptomatic in regard to this. PLAN: - Follow up with primary care provider and cardiology for adequate blood pressure control - Smoking cessation has been encouraged History of hepatitis B Reported by patient. PLAN: - Follow up with gastroenterology for management Numbness of right lower extremity The patient previously reported numbness in the right anterolateral thigh with onset in mid 2023. Given the clinical description and distribution of symptoms, I believe this may have represented meralgia paresthetica. RLE EMG on 02/03/24 was normal and did not identify an L3 or L4 radiculopathy. Symptoms have since resolved. PLAN: - Consider further work up in the future if symptoms return I advised the patient to notify our office if he experiences any further syncopal episodes. Diagnosis and treatment options discussed in detail. All questions answered. The patient and his verbalize understanding and are agreeable to the plan. Discussion in layman's terms. Follow up in the office within 6 months; sooner if needed for new or worsening symptoms. Michelle Banuelos NP [facility] documented in this encounter [facility] 03-25-2024 Evaluation note Authored March 25, 2024 [...] for ultrasound liver -Will arrange for [facility] Work Phone: [phone]) 864-804709-17-2024 History of Present illness Narrative* Michelle Banuelos NP - 03/23/2024 4:20 PM EDT Images from the original note were not included. Michelle Banuelos NP Chief Complaint Patient presents with Follow-up Dizziness Subjective Ahsan Nielsen is a 58 y.o. male. HPI The patient presents today for follow up. He is accompanied by his . He had an ambulatory EEG completed for review. He continues to follow with cardiology. He has established care with gastroenterology for evaluation and management of hepatitis and elevated liver enzymes. The patient and his deny any loss of consciousness or seizure-like activity since the prior neurology appointment. The patient denies alteration of awareness or confusion. His most recent syncopal episode was in November 2023. The patient can experience intermittent dizziness or lightheadedness, but this is infrequent and mild. It is provoked only by standing up too quickly or coughing too much/too hard. It resolves quickly. The patient states he stands up slowly to help prevent the dizziness. He also remains well hydrated and drinks a good amount of water per day. He was recently evaluated in the emergency department for an allergic reaction to a bee sting. He now has an EPI pen to use as needed. The numbness in the patient's right anterior thigh has resolved. He and his deny any further concerns. Review of Systems Constitutional: Negative for appetite change, chills, fatigue, fever and unexpected weight change. HENT: Negative for trouble swallowing and voice change. Eyes: Negative for visual change, double vision, or loss of vision Respiratory: Positive for shortness of breath (upon exertion - following with pulmonology). Negative for cough and wheezing. Cardiovascular: Negative for chest pain and palpitations. Gastrointestinal: Negative for abdominal pain, blood in stool, nausea and vomiting. Musculoskeletal: Negative for arthralgias, gait problem and myalgias. Neurological: Positive for dizziness and light-headedness. Negative for tremors, seizures, syncope,facial asymmetry, speech difficulty, weakness, numbness and headaches. Psychiatric/Behavioral: Negative for confusion, hallucinations and suicidal ideas. The patient is not nervous/anxious. Medication List amlodipine-benazepril 10-20 MG capsule; Commonly known as: Lotrel EPINEPHrine (Epipen) 0.3 MG/0.3 ML injection syringe metoprolol succinate XL 25 MG 24 hr tablet; Commonly known as: Toprol-XL Stiolto Respimat 2.5-2.5 MCG/ACT aerosol solution inhaler Past Medical History: Diagnosis Date Dyspnea on exertion Elevated liver enzymes Hepatitis B Hypertension (CMS/HCC) Orthostatic hypotension Syncope Tobacco use Past Surgical History: Procedure Laterality Date ROTATOR CUFF REPAIR No family history on file. Social History Tobacco Use Smoking status: Every Day Current packs/day: 0.00 Average packs/day: 1 pack/day for 44.7 years (44.7 ttl pk-yrs) Types: Cigarettes Start date: 1979 Last attempt to quit: 03/21/2024 Smokeless tobacco: Never Substance Use Topics Alcohol use: Yes Alcohol/week: 2.0 standard drinks of alcohol Types: 2 Standard drinks or equivalent per week Allergies: Hornet venom Vitals: 03/23/24 1625 BP: 126/76 Pulse: 88 SpO2: 96% Body mass index is 25.34 kg/m . weight: 176 lb 9.6 oz Neurologic exam: Mental status: Awake and alert with unlabored respirations. Oriented to person, place and time. Recent and remote memory are intact. Speech is clear and fluent without aphasia. Attention and concentration are normal. Fund of knowledge is appropriate for level of education. Pleasant. Cranial nerves: CN II: Visual acuity is normal. Visual tinoco full to confrontation. CN III, IV, : Pupils are equal, round, and reactive to light. Extraocular movements intact. No ptosis present. CN V: Facial sensation is normal. CN VII: Full and symmetric facial movement. CN VIII: Hearing is normal to finger rub bilaterally. CN IX and X: Palate elevates symmetrically. CN XI: Shoulder shrug is normal bilaterally. CN XII: Tongue is midline without atrophy or fasciculation. Motor: RUE strength deltoid , biceps , triceps , wrist extensors , wrist flexor , and feeder tender strength 5/5. LUE strength deltoid , biceps , triceps , wrist extensors , wrist flexor , and feeder tender strength 5/5. RLE strength iliopsoas, quadriceps, tibialis anterior, plantar flexion, and dorsiflexion strength 5/5. LLE strength iliopsoas, quadriceps, tibialis anterior, plantar flexion, and dorsiflexion strength 5/5. Tone is normal. Sensory: Sensation is intact to light touch throughout all four extremities. Sensation is intact to temperature in all extremities. Reflexes: RUE biceps reflex 2+ , brachioradialis reflex 2+. LUE biceps reflex 2+ , brachioradialis reflex 2+. RLE Knee reflex 2+. LLE Knee reflex 2+. Coordination: [id number] testing normal. Rapid alternating movements are normal. Gait: Normal. Review and summary of old records: Ambulatory EEG in 02/2024: Normal 65-hour ambulatory EEG. There was no epileptiform activity recorded during the record. There were no seizures recorded during the record. Orthostatic vital signs at [facility] on 02/24/2024: Positive. Laying - blood pressure 108/71, heart rate 57 beats/min Sitting - blood pressure 144/82, heart rate 59 beats/min Standing for 3 minutes - blood pressure 120/72, heart rate 62 beats/min MRI of the brain w and w/o contrast at [facility] on 02/06/2024: A punctate microhemorrhage seen involving left parietal lobe on the GRE imaging. Cortical atrophy with mild chronic microvascular ischemic changes which appeared to extend into the kylee. EMG of the right lower extremity at [facility] on 02/03/2024: Normal. No evidence of a lumbar radiculopathy or generalized process such as polyneuropathy or myopathy. Unable to exclude a lesion of the lateral femoral cutaneous nerve on the right. 2-hr EEG on 02/02/2024: Normal. Event monitor from 12/10/2023 through 01/09/2024 (per cardiology note): Sinus rhythm with heart rate 40 to 165 beats/min. Average heart rate of 76 beats/min. Rare PACs and PVCs. 1 episode of nonsustained V. tach consisted of 4 beats, asymptomatic. 1 event reported by the patient and was associated with normal sinus rhythm and 1 PAC and 1 PVC at a heart rate 88 beats/min. Routine EEG on 12/24/2023: Normal. EKG on 11/22/2023 (per cardiology note): Normal sinus rhythm. Heart rate 67 beats/min. Dr. Borges reviewed cardiology notations documented that the cardiology believes the patient may have suffered orthostatic hypotension secondary to dehydration. They were going to evaluate for tachyand bradyarrhythmias. They were going to obtain echocardiogram laboratory evaluation and 30 day event monitor. They are also continuing treatment with Toprol-XL and lisinopril. Assessment/Plan Diagnoses and all orders for this visit: Loss of consciousness (CMS/[facility]) The patient reports episodic loss of consciousness over the course of the last year. His most recent episode was in November 2023. Given the test results thus far and the fact that all of his syncopal episodes occurred while standing, I have suspicion for syncope related to orthostatic hypotension. Per documentation from the cardiology team, 30-day event monitor from 12/2023 through 01/2024 did not reveal significant arrhythmias aside from rare PACs and PVCs and 1 nonsustained V. tach (4 beats) without associated symptoms. EKG on 11/22/23 identified normal sinus rhythm. Routine EEG on 12/24/23 and 2-hr EEG on 02/02/24 were normal. Ambulatory EEG in 02/2024 was also normal. The patient denies any syncopal episodes since the prior neurology appointment. PLAN: - See orthostatic hypotension below - Carotid ultrasound to evaluate for extracranial cerebral artery stenosis which could contribute to cerebral hypoperfusion Orthostatic hypotension The patient carries a diagnosis of orthostatic hypotension. 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 Symptomshave significantly improved since he increased his water intake. He reports only mild and infrequent lightheadedness/dizziness recently if he stands up to quickly. PLAN: - Follow up with cardiology for management - I reiterated the importance of ensuring adequate water intake and hydration - I encouraged the patient to change positions slowly - I recommended the use of compression stockings Abnormal finding on MRI of brain MRI of the brain on 02/06/24 revealed a punctate microhemorrhage involving the left parietal lobe. The patient is seemingly asymptomatic in regard to this, and I do not believe it would be contributoryto his episodic loss of consciousness. PLAN: - Follow up with primary care provider and cardiology for adequate blood pressure control - I have counseled the patient on smoking cessation. He states he has reduced his smoking History of hepatitis B Reported by patient. PLAN: - Follow up with primary care provider and gastroenterology per their recommendations Numbness of right lower extremity The patient previously reported numbness in the right anterolateral thigh with onset in mid 2023. Given the clinical description and distribution of symptoms, I believe this may have represented meralgia paresthetica. RLE EMG on 02/03/24 was normal and did not identify an L3 or L4 radiculopathy. Symptoms have since resolved. PLAN: - Monitor clinically Diagnosis and treatment options discussed in detail. All questions answered. The patient and his verbalize understanding and are agreeable to the plan. Discussion in layman's terms. Follow up in the office within 3 to 4 months; sooner if needed for new or worsening symptoms. Michelle Banuelos NP [facility] documented in this [facility]09-17-2024 Instructions* Patient Instructions* Michelle Banuelos NP - 03/23/2024 4:20 PM EDT - Carotid ultrasound documented in this [facility]09[facility]04[facility] Reason for cardiology [...] blood pressure has been good 01/19/2024 Ahsan Nielsen is a 58 y.o. male who is [...] lower dose of metoprolol. Visit 12/10/2023 Ahsan Nielsen is a 58 y.o. male without prior cardiac history. Hypertension was diagnosed recently and he was started on lisinopril. He denies history of hyperlipidemia or diabetes mellitus. He is a longtime smoker. He presented to [facility] ED last month for syncope. He says [...] and symmetric in b (more content not included)...[facility]08-20-2024 History of Present illness Narrative* Michelle Banuelos NP - 02/24/2024 1:00 PM EDT Images from the original note were not included. Michelle Banuelos NP Chief Complaint Patient presents with Follow-up Subjective Ahsan Nielsen is a 58 y.o. male. HPI The patient presents today for follow up. He is accompanied by his . He had an MRI of the brain, 2-hr EEG, and EMG of the right lower extremity completed for review. He denies any episodes of loss of consciousness, alteration of awareness, or involuntary movements since the prior neurology appointment. He was evaluated by pulmonology earlier today, and they prescribed an inhaler. The patient denies any dizziness or lightheadedness since the previous neurology appointment. states he can experience lightheadedness if he stands up too quickly. She mentions he changes position slowly. The patient states he has not been doing much lately. He has significantly increased his water intake in recent weeks. He denies double vision, difficulty speaking or difficulty swallowing. The patient continues to have mild numbness in the right anterior thigh. This has significantly improved. He states the numbness has, almost disappeared, and is not bothersome. He denies back pain,saddle anesthesia, lower extremity weakness, paresthesias or bowel/bladder dysfunction. He denies any further concerns but states he is aggravated that a clear cause for his symptoms has yet to be identified. Review of Systems Constitutional: Negative for appetite change, chills, fatigue, fever and unexpected weight change. HENT: Negative for trouble swallowing and voice change. Eyes: Negative for visual change, double vision or loss of vision Respiratory: Positive for shortness of breath (upon exertion - following with primary care providerand has an appointment with pulmonology in 02/2024). Negative for cough and wheezing. Cardiovascular: Negative for chest pain and palpitations. Gastrointestinal: Negative for abdominal pain, blood in stool, nausea and vomiting. Musculoskeletal: Negative for arthralgias, gait problem and myalgias. Neurological: Positive for numbness. Negative for dizziness, tremors, seizures, syncope, facial asymmetry, speech difficulty, weakness, light-headedness and headaches. Psychiatric/Behavioral: Negative for confusion, hallucinations and suicidal ideas. The patient is not nervous/anxious. Medication List amlodipine-benazepril 10-20 MG capsule; Commonly known as: Lotrel metoprolol succinate XL 25 MG 24 hr tablet; Commonly known as: Toprol-XL Past Medical History: Diagnosis Date Hepatitis B Hypertension (CMS/HCC) Past Surgical History: Procedure Laterality Date ROTATOR CUFF REPAIR No family history on file. Social History Tobacco Use Smoking status: Every Day Current packs/day: 1.00 Types: Cigarettes Smokeless tobacco: Never Substance Use Topics Alcohol use: Yes Alcohol/week: 2.0 standard drinks of alcohol Types: 2 Standard drinks or equivalent per week Allergies: Patient has no known allergies. Vitals: 02/24/24 1245 BP: 122/74 Pulse: 58 SpO2: 90% Body mass index is 25.31 kg/m . weight: 176 lb 6.4 oz Neurologic exam: Mental status: Awake and alert with unlabored respirations. Oriented to person, place and time. Recent and remote memory are intact. Speech is clear and fluent without aphasia. Attention and concentration are normal. Fund of knowledge is appropriate for level of education. Cranial nerves: CN II: Visual acuity is normal. Visual tinoco full to confrontation. CN III, IV, : Pupils are equal, round and reactive to light. Extraocular movements intact. No ptosis present. CN V: Facial sensation is normal. CN VII: Full and symmetric facial movement. CN VIII: Hearing is normal to finger rub bilaterally. CN IX and X: Palate elevates symmetrically. CN XI: Shoulder shrug is normal bilaterally. CN XII: Tongue is midline without atrophy or fasciculation. Motor: RUE strength deltoid , biceps , triceps , wrist extensors , wrist flexor , and feeder tender strength 5/5. LUE strength deltoid , biceps , triceps , wrist extensors , wrist flexor , and feeder tender strength 5/5. RLE strength iliopsoas, quadriceps, tibialis anterior, plantar flexion, and dorsiflexion strength 5/5. LLE strength iliopsoas, quadriceps, tibialis anterior, plantar flexion, and dorsiflexion strength 5/5. Tone and bulk are normal. Sensory: Sensation is intact to light touch throughout all four extremities. Sensation is intact to temperature in all extremities. Reflexes: RUE biceps reflex 2+ , brachioradialis reflex 2+. LUE biceps reflex 2+ , brachioradialis reflex 2+. RLE Knee reflex 2+. LLE Knee reflex 2+. Coordination: [id number] testing normal. Rapid alternating movements are normal. Gait: Normal. Review and summary of old records: Orthostatic vital signs at [facility] on 02/24/2024: Positive. Laying - blood pressure 108/71, heart rate 57 beats/min Sitting - blood pressure 144/82, heart rate 59 beats/min Standing for 3 minutes - blood pressure 120/72, heart rate 62 beats/min MRI of the brain w and w/o contrast at [facility] on 02/06/2024: A punctate microhemorrhage seen involving left parietal lobe on the GRE imaging. Cortical atrophy with mild chronic microvascular ischemic changes which appeared to extend into the kylee. EMG of the right lower extremity at [facility] on 02/03/2024: Normal. No evidence of a lumbar radiculopathy or generalized process such as polyneuropathy or myopathy. Unable to exclude a lesion of the lateral femoral cutaneous nerve on the right. 2-hr EEG on 02/02/2024: Normal. Event monitor from 12/10/2023 through 01/09/2024 (per cardiology note): Sinus rhythm with heart rate 40 to 165 beats/min. Average heart rate of 76 beats/min. Rare PACs and PVCs. 1 episode of nonsustained V. tach consisted of 4 beats, asymptomatic. 1 event reported by the patient and was associated with normal sinus rhythm and 1 PAC and 1 PVC at a heart rate 88 beats/min. Routine EEG on 12/24/2023: Normal. EKG on 11/22/2023 (per cardiology note): Normal sinus rhythm. Heart rate 67 beats/min. Dr. Borges reviewed cardiology notations documented that the cardiology believes the patient may have suffered orthostatic hypotension secondary to dehydration. They were going to evaluate for tachyand bradyarrhythmias. They were going to obtain echocardiogram laboratory evaluation and 30 day event monitor. They are also continuing treatment with Toprol-XL and lisinopril. Assessment/Plan Diagnoses and all orders for this visit: Loss of consciousness (CMS/[facility]) It is my impression that the patient has had episodic loss of consciousness over the course of the last 1 year. His most recent episode was in November 2023. Etiology is unclear. However, the patient has been evaluated cardiology who believes his syncopal episodes may be related to orthostatic hypotension. Per documentation from the cardiology team, 30-day event monitor from 12/2023 through 01/2024 did not reveal significant arrhythmias aside from rare PACs and PVCs and 1 nonsustained V. tach (4 beats) without associated symptoms. EKG on 11/22/23 identified normal sinus rhythm. Routine EEG on 12/24/23 and 2-hr EEG on 02/02/24 were normal. While orthostatic hypotension is considered, an intracranialprocess such as epilepsy has not been excluded, and I believe further workup is indicated. PLAN: - Ambulatory EEG to assess for possible seizure or underlying epileptiform activity which could explain the patient's episodes Orthostatic hypotension The patient carries diagnosis of orthostatic hypotension. 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 Symptoms have improved since he has increased his water intake. PLAN: - Follow up closely with cardiology for management - We discussed adequate hydration and water intake - I encouraged the patient to change positions slowly - I recommended the use of compression stockings Abnormal finding on MRI of brain MRI of the brain on 02/06/24 revealed a punctate microhemorrhage involving the left parietal lobe. The patient is seemingly asymptomatic in regard to this, and I do not believe it would be contributoryto his episodic loss of consciousness. PLAN: - I advised the patient to follow up closely with his primary care provider and cardiology for adequate blood pressure control - I counseled the patient on smoking cessation Numbness of right lower extremity The patient reports numbness in the right anterolateral thigh with onset in mid 2023. Symptoms havealmost entirely resolved since that time. Given the clinical description and distribution of symptoms, I am most suspicious for possible meralgia paresthetica. RLE EMG on 02/03/24 was normal and did not identify an L3 or L4 radiculopathy. PLAN: - Monitor clinically - Consider referral to physical therapy and further work up in the future if symptoms worsen History of hepatitis B Reported by patient. PLAN: - Follow up with primary care provider and gastroenterology per their recommendations Diagnosis and treatment options discussed in detail. All questions answered. The patient and understand and are agreeable to the plan. Discussion in layman's terms. Follow up in the office within 1 month; sooner if needed for new or worsening symptoms. Michelle Banuelos NP [facility] [facility] [id number] Instructions* Patient Instructions* Michelle Banuelos NP - 02/24/2024 1:00 PM EDT - Ambulatory EEG documented in this encounterHedrick Medical [id number] [facility] Reason for cardiology visit: Patient here for follow up echo and 30 day event monitor. He is scheduled for sleep study on 02/18/2024. Chief Complaint: No complaints HPI: Ahsan Nielsen is a 58 y.o. male who is [...] lower dose of metoprolol. Visit 12/10/2023 Ahsan Nielsen is a 58 y.o. male without prior cardiac history. Hypertension was diagnosed recently and he was started on lisinopril. He denies history of hyperlipidemia or diabetes mellitus. He is a longtime smoker. He presented to [facility] last month for syncope. He says [...] EKG 06/25/2016 Normal si (more content not included)...[facility] 12-10-2023 [facility] Reason for cardiology [...] is a longtime smoker. He presented to [facility] last month for syncope. He says [...] bradycardia or tachyarrhythmias. Dys (more content not included)...[facility]Evaluation noteNo assessment information availableSamaritan [facility] Ctr Work Phone: Evaluation note* Diagnosis Loss of consciousness (CMS/HCC)- Primary Other alteration of consciousness Orthostatic hypotension Abnormal finding on MRI of brain History of hepatitis B Personal history of other infectious and parasitic disease Numbness of right lower extremity documented in this encounter [facility] HealthcareEvaluation note* Diagnosis Loss of consciousness (CMS/HCC)- Primary Other alteration of consciousness Orthostatic hypotension Episodic migraine (CMS/HCC) Abnormal finding on MRI of brain History of hepatitis B Personal history of other infectious and parasitic disease Numbness of right lower extremity documented in this encounter [facility] HealthcareEvaluation note* Diagnosis Loss of consciousness (CMS/HCC)- Primary Other alteration of consciousness Orthostatic hypotension Abnormal finding on MRI of brain Numbness of right lower extremity History of hepatitis B Personal history of other infectious and parasitic disease documented in this encounter [facility] Healthcare Summary Purpose Family History No Family History [...] [1] Hospital Course He ruled out for [place]. Chest x-ray was normal. Stress test was [...] antibody pos, E B16.9 elevated liver enzymes B16.9 Reason for Visit Elevated liver enzym es Hepatitis B Chief Complaint R40.20 I95.1 Refer F Miranda, Hep B antibody pos, E B16.9 elevated liver enzymes B16.9 K76.0 Reason for Visit Elevated liver enzym es Hepatitis B Reason for Referral Specialty Diagnoses / Procedures Referred By Sukhi mendez Referred To Contact Radiology Diagnoses Loss of consciousness (CMS/HCC) Procedures Vascular US carotid artery duplex bilateral Michelle Banuelos, NEL [address] [place] [phone] Referral ID Status Reason Start Date Expiration Date V isits Requested Visits Authorized [id number] Incomplete 03/23/2024 09/19/2024 1 1 Specialty Diagnoses / Procedures Referred By Sukhi t Referred To Contact Neurology Diagnoses Loss of consciousness (CMS/HCC) Procedures Home EEG 36-84 Hours Michelle Banuelos NP [address] [place] [phone] Referral ID Status Reason Start Date Expiration Date V isits Requested Visits Authorized [id number] Pending Review 02/24/2024 08/22/2024 1 1 Additional Source Comments (unrecognized sect ion and content) No Status Records FoundNo Status Records FoundNo Status Records FoundNo Status Records FoundNo Status Records Found INFORMATION SOURCE (unrecogn ized section and content) DATE CREATED AUTHOR 12/25/2017 [facility] DATE CREATED AUTHOR AUTHOR'S ORGANIZ ATION 04/15/2019 [facility] DATE CREATED AUTHOR AUTHOR'S ORGANIZ ATION 06/18/2024 [facility] EPIC DATE CREATED AUTHOR AUTHOR'S ORGANIZ ATION 07/06/2024 [facility] DATE CREATED AUTHOR AUTHOR'S ORGANIZ ATION 07/18/2024 [facility] Care Teams (unrecognized sec tion and content) [...] APRN Primary Care Provider Active Start: March 31, 2024 End: March 31, 2024 Ayanna Waldron MD Attending Provider Active Start: March 31, 2024 End: March 31, 2024 Team Status: Inactive Member Role Status Dates Emerald Jean APRN Primary Care Provider Active Start: April 03, 2024 End: April 03, 2024 Ayanna Waldron MD Attending Provider Active Start: April 03, 2024 End: April 03, 2024 Team Status: Inactive Member Role Status Dates Emerald Jean APRN Primary Care Provider Active Start: May 05, 2024 End: May 05, 2024 Ayanna Waldron MD Attending Provider Active Start: May 05, 2024 End: May 05, 2024 Cannoneer Relationship Specialty Start Date End Date Emerald Jean NP [address] [place] [address] Referring Physician Family Medicine 12/23/23 Cannoneer Relationship Specialty Start Date End Date Emerald Jean NP [address] [place] [address] Referring Physician Family Medicine 12/23/23 Cannoneer Relationship Specialty Start Date End Date Emerald Jean NP [address] [place] [address] Referring Physician Family Medicine 12/23/23 Cannoneer Relationship Specialty Start Date End Date Emerald Jean NP [address] [place] [address] Referring Physician Family Medicine 12/23/23 Goals (unrecognized section and content) Goals may be documented in a n alternate sectionGoals may be documented in an alternate section Reason for Visit (unrecogniz ed section and content) Reason Comments Follow-up Dizziness Reason Comments Dizziness Headache Reason Comments Follow-up FOR RECORDS PERTAINING TO PATIENTS WHO ARE [...] BE BASED ON THE PRIMARY CLINICAL RECORDS. [facility] FacilityCallGr[facility]. provides no warranty or guarantee of the accuracy or completeness of information in this document.
[2024-08-06] MEDS: REGADENOSON 0.4 MG/5 ML SYRINGE IV (09:14)
--- NOTE | 2024-08-06 09:14 | PC.NURSE ---
Nursing Note Cardiac Stress Test Reviewed: Medication, allergies and patient history reviewed. Stress Test: [ x] Patient tolerated stress test well. [ x] Patient unable to tolerate walking on treadmill. Switched to Lexiscan stress test. [ x] No chest pain noted per patient [ ] Chest pain that resolved prior to leaving stress lab. [ ] No dyspnea noted. [ x] Dyspnea that resolved prior to leaving stress lab. [ x] Patient left stress lab asymptomatic and hemodynamically stable. [ ] Patient taken to the Emergency Room due to non-resolving symptoms following stress test. [ ] Patient achieved target heart rate. [ x] Patient unable to achieve target heart rate. [ ] Aminophylline administered as reversal agent to Lexiscan (Regadenoson). [ ] Nitro administered. Nursing Comments:Pt had Cardiolite ordered but unable to walk on TM. Pt tried for about 3 minutes and then leg gave out and pt unable to continue. Pt did not meet target HR so he was switched to Lexiscan and tolerated this well and test was completed. Pt ambulated to [employer] with [employer] for breakfast prior to second set of images. Pt had no symptoms at time of leaving stress lab.
== END 2024-08-06 07:25 | disposition home or self-care (01) ==
LOC: NM 07:24
PROVIDERS: PCP Internal Medicine Cardiovascular Disease; Visit Provider Internal Medicine Cardiovascular Disease
DX: R07.9 Chest pain, unspecified (principal)
CPT/HCPCS: 78452; 93017; A9500; J2785

== ENCOUNTER 2024-09-07 07:52 | Outpatient (OUT) | payer OTHER, SELFPAY ==
--- OUTSIDE RECORDS SUMMARY | 2024-09-07 08:15 | XMS_ITS | CCD ---
Author Organization [facility] Care Team Providers Care Combined Rail Operator Name Role Phone ANABEL LONG Unavailable Unavailable ANABEL LONG Unavailable Unavailable ANABEL LONG Unavailable Unavailable ANBAEL LONG Unavailable Unavailable TAMMY CONTRERAS Unavailable Unavailable GEE JONES Admitting Unavailable GEE JONES Attending Unavailable LINCOLN MONK Consulting Unavaila ble BV, Physician - Emergency Consulting Kajal Wood Consulting Unavailable DO Jamaica Borges Attending Provider PRIMO Jean [place] Primary Care Provider MD Ayanna Waldron Attending Provider Miranda PORTAL ADMINISTRATOR, Emerald Unavailable JAMAICA BORGES Attending Unavailable JAMAICA [...] Unavailab Jamaica Pedraza Attending Unavailab le Miranda, [place] [facility] Unavailable Asaad, Imad Admitting Unavailable Asaad, Imad Attending Unavailable Metaline, [place] [facility] Unavailable Asaad, Imad Attending Unavailable Miranda, [place] [facility] Unavailable Asaad, Imad Admitting Unavailable Asaad, Imad Attending Unavailable [facility] Primary Care Unavailable Asaad, Imad Admitting Unavailable ELISABETH PEREZ Attending Unavailable ELISABETH PEREZ Attending Unavailable ELISABETH PEREZ Attending Unavailable ELISABETH PEREZ Attending Unavailable ELISABETH PEREZ Attending Unavailable Allergies Allergy Classification Reported Allergen(s) Allergy Type Date of Onset Reaction(s) Facility (1 source) No Known Medication Allergies; Translations: [No Known Medication Allergies] Propensity to adverse reactions to drug (disorder) [facility] Repository (5 sources) Hornet venom; Translations: [HORNET VENOM] Propensity to adverse reactions 4 [facility] (1 source) bee venom protein (honey bee) Drug allergy (disorder) 4 [facility] Repository Medications Current Medications Medication Drug Class(es) Dates Sig (Normalized) Sig (Original) [id number] 200 actuat albuterol 0.09 mg/actuat metered dose [...] mouth in the morning. 01/19/2024 01/18/2025 Active [id number] 0.3 ml EPINEPHrine 1 mg/ml auto-injector (4 [...] sources) Palpitations; Translations: [Palpitations] Onset: 12-10-2023 Episodic Disorders of lipid metabolism (2 sources) Hyperlipidemia, unspecified; Translations: [Hyperlipidemia, unspecified] Onset: 08-25-2024 Chronic Essential hypertension (8 sources) Hypertensive disorder; Translations: [...] Value Interpretation Reference Range Facility Office Visiton 08-25-2024 Follow-up visit [id number] Javier Nielsen A 1965 Date Provider Department Center 08/25/2024 ELISABETH BOOTH Family History Problem Relation Age of Onset Cancer Mother COPD Father Family Status - Relation Status Age at Mother Father Level of Service:93871 ND OFFICE/OUTPATIENT ESTABLISHED MOD MDM 30 MIN Reason for Visit and Comments: Syncope [506] - Had stress test 08/06/2024. Denies chest pain and SOB. Denies recurrent syncope. Palpitations [380246] Normal [facility] Office Visiton 07-12-2024 Follow-up visit [id number] Javier Nielsen A 1965 M Date Provider Department Center 07/12/2024 ELISABETH BOOTH Family History Problem Relation Age of Onset Cancer Mother COPD Father Family Status - Relation Status Age at Mother Father Level of Service:04802 ND OFFICE/OUTPATIENT ESTABLISHED MOD MDM 30 MIN Reason for Visit and Comments: Hypertension [631528] - Denies chest pain. Palpitations [232309] - No more than usual for him. Syncope [506] - Denies recurrence. Says he's gotten used to taking his time upon standing up to prevent lightheadedness/dizziness. He's been feeling a lot better the past month or so. Normal [facility] MR abdomen wo/w conon 2023 MR abdomen wo/w con [facility] Main [place] [id number] MRI Report Signed Patient: Ahsan Nielsen MR#: [id number] : 1965 Acct:[id number] Age/Sex: 58 / M ADM Date: 05/05/24 Loc: Room: Type: [facility] Attending Dr: Ayanna Waldron MD Copies to: [...] Rey Jr., D.O.05/06/2024 9:42 AM Dictation Location: [place] [address] Transcribed By: [facility] 05/06/24941 Dictated By: Shiva Rey Jr, DO 05/06/2434 Signed By: 05/06/24941 Normal [facility] US liveron 04-03-2024 liver [facility] Main [address] [address] Ultrasound Report Signed Patient: Ahsan Nielsen MR#: [id number] : 1965 Acct:[id number] Age/Sex: 58 / M ADM Date: 04/03/24 Loc: Room: Type: [facility] Attending Dr: Ayanna Waldron MD Ordering Provider: [...] Jai Lees M.D.04/03/2024 9:50 AM Dictation Location: [place] [address] Tech: Devorah Brown Transcribed By: [facility] 04/03/24 0950 Dictated By: Jai Lees DO 04/03/2436 Signed By: 04/03/24 0950 Normal [facility] Alanine aminotransferase [En zymatic activity/volume] in Serum or PlasmaOrdered By: Ayanna Waldron on 03-25-2024 ALT [Catalytic activity/Vol] 17 U/L Normal [facility] Comment on above: Performed By: #### H BV PCR, HBSAB, HEMOCHROM, HBCAB, HBeAG, HIV SCREEN, HBEAB, HAABT, HAAB, HCBIGM, HCV RX PCR, HDAB, HBSAG, CERULOP, ALPHA PHEN #### [facility] , #### HEPATIC #### [address] Albumin [Mass/volume] in Ser um or Plasma by Bromocresol green (BCG) dye binding methoOrdered By: Imad Asaad on 03-25-2024 Albumin BCG dye [Mass/Vol] 4.7 g/dL 3.5-5.7 [facility] Alkaline phosphatase [Enzyma tic activity/volume] in Serum or PlasmaOrdered By: Imad Asaad on 03-25-2024 ALP [Catalytic activity/Vol] 73 U/L Normal 34-104 [facility] Comment on above: Result Comment: PERF ORMED BY: [facility] [address] [place] [address] PATHOLOGIST FARM MANAGER CECILY VILLAGRAN M.D. Performed By: #### H BV PCR, HBSAB, HEMOCHROM, HBCAB, HBeAG, HIV SCREEN, HBEAB, HAABT, HAAB, HCBIGM, HCV RX PCR, HDAB, HBSAG, CERULOP, ALPHA PHEN #### [facility] , #### HEPATIC #### [facility] [address] Jorwc-5-Gvbeqkesbgy Phenotyp heidi 03-25-2024 Alpha 1 Anti-Trypsin 119 mg/dL Normal 101-187 [facility] Comment on above: Performed By: #### H BV PCR, HBSAB, HEMOCHROM, HBCAB, HBeAG, HIV SCREEN, HBEAB, HAABT, HAAB, HCBIGM, HCV RX PCR, HDAB, HBSAG, CERULOP, ALPHA PHEN ####[facility] ,#### HEPATIC ####[facility] Phenotype (P1) MZ Normal . [facility] Comment on above: Result Comment: MM Phenotype is considered to be normal , producing normal serum levels of wgmiw-9-swvjiivw inhibitor and not associated with clinical disease. [...] Ranges used to confirm phenotype. Performed at: [facility] Lab[address] [id number] Rough Patcher: Prashanth Cat PhD, Phone: [phone] Performed at: [facility] Lab[address] [id number] Rough Patcher: Girish Kay MD, Phone: [phone] Performed By: #### H BV PCR, HBSAB, HEMOCHROM, HBCAB, HBeAG, HIV SCREEN, HBEAB, HAABT, HAAB, HCBIGM, HCV RX PCR, HDAB, HBSAG, CERULOP, ALPHA PHEN ####[facility] ,#### HEPATIC ####[facility] Aspartate aminotransferase [ Enzymatic activity/volume] in Serum or PlasmaOrdered By: Imad Asaad on 03-25-2024 AST [Catalytic activity/Vol] 16 U/L Normal 13-39 [facility] Comment on above: Performed By: #### H BV PCR, HBSAB, HEMOCHROM, HBCAB, HBeAG, HIV SCREEN, HBEAB, HAABT, HAAB, HCBIGM, HCV RX PCR, HDAB, HBSAG, CERULOP, ALPHA PHEN #### [facility] , #### HEPATIC #### [facility] [address] Bilirubin.direct [Mass/volum e] in Serum or PlasmaOrdered By: Imad Asaad on 03-25-2024 Bilirubin.direct [Mass/Vol] 0.10 mg/dL 0.03-0.18 [facility] Bilirubin.total [Mass/volume ] in Serum or PlasmaOrdered By: Ayanna Waldron on 03-25-2024 Bilirubin [Mass/Vol] 0.9 mg/dL Normal 0.3-1.0 [facility] Comment on above: Performed By: #### H BV PCR, HBSAB, HEMOCHROM, HBCAB, HBeAG, HIV SCREEN, HBEAB, HAABT, HAAB, HCBIGM, HCV RX PCR, HDAB, HBSAG, CERULOP, ALPHA PHEN #### [facility] , #### HEPATIC #### [address] Blood or tissue HFE gene mut ations identification by molecular genetics methodOrdered By: Ayanna Waldron on 03-25-2024 HFE gene targeted mutation analysis Molgen Nom (Bld/Tiss) Comment . [facility] Comment on above: Results:c.845G>A (p. Gdu567Bba) - Not Detectedc.187C>G (p.Yyw32Fxh) - Detected, heterozygousc.193A>T (p.Uwx98Ckr) - Not DetectedNot associated with increased risk [...] recommended for patientswho are homozygous for c.845G>A (p.Swq048Bid) and have yetto experience clinical symptoms.Comments:The most common HFE variants associated with hereditaryhemochromatosis are c.845G>A (p.Yzd420Krt), c.187C>G(p.Adn24Lpr), c.193A>T (p.Syz14Zvp). While patientshomozygous for c.845G>A (p.Jtl417Let) are the most likelyto present clinical symptoms, less than 10% developclinically significant iron overload with tissue and organdamage.Genetic counseling is recommended to discuss the potentialclinical implications of positive results, as well asrecommendations for testing family members.Genetic Coordinators are available for health careproviders to discuss results at [phone]).Test Details:Three variants analyzed:c.845G>A (p.Edu519Ymz), commonly referred to as C282Yc.187C>G (p.Pmn58Efl), commonly referred to as H63Dc.193A>T (p.Vwl79Zif), commonly referred to as J19VTikeyou/Limitations:DNA Analysis of the HFE gene (NM_000410.4) was [...] was developed and its performancecharacteristics determined by [employer]. It has not beencleared or approved by the Food and Drug Administration.References:Jorden BR, Jin PC, Fernandez KV, Jarret LW, Michell ;[employer] for the Study of Liver Diseases.Diagnosis and management of hemochromatosis: 2011 practiceguideline by the [employer] Association for the Study ofLiver Diseases. Hepatology. 2011 Jan;54(1):328-43. doi:10.1002/hep.61538. PMID: 05974649; PMCID: [id number].Dakota G, Paramjit P, Kina SANCHEZ, Kathryn H, Rosemary O,Lucian S, Casey I, Mahad M, Lauren S. [facility] best practiceguidelines for the molecular genetic diagnosis ofhereditary hemochromatosis (HH). Eur J Hum Alisha. 2016Apr;24(4):479-93. doi: 10.1038/ejhg.2015.128. Epub 2014. PMID: 39645812; PMCID: [id number]. Ceruloplasminon 03-25-2024 Ceruloplasmin 32.5 mg/dL High 16.0-31.0 [facility] Comment on above: Result Comment: Perf ormed at: [place] [address] Rough Patcher: Prashanth Cat PhD, Phone: [phone] PERFORMED BY: [place] [address] PATHOLOGIST FARM MANAGER CECILY VILLAGRAN M.D. Performed By: #### H BV PCR, HBSAB, HEMOCHROM, HBCAB, HBeAG, HIV SCREEN, HBEAB, HAABT, HAAB, HCBIGM, HCV RX PCR, HDAB, HBSAG, CERULOP, ALPHA PHEN #### [facility] , #### HEPATIC #### [facility] [address] HIV 1/O/2 Antigen/Antibodyon 03-25-2024 HIV Screen 4th Generation Non-Reactive Normal Non Reactive [facility] Comment on above: Result Comment: HIV- 1/HIV-2 antibodies and HIV-1 p24 antigen were NOT detected. There is no laboratory evidence of HIV infection. HIV Negative Performed at: [facility] [place] [address] Rough Patcher: Prashanth Cat PhD, Phone: [phone] Performed By: #### H BV PCR, HBSAB, HEMOCHROM, HBCAB, HBeAG, HIV SCREEN, HBEAB, HAABT, HAAB, HCBIGM, HCV RX PCR, HDAB, HBSAG, CERULOP, ALPHA PHEN ####[facility] ,#### HEPATIC ####[facility] HIV 1 and HIV-2 antibody ass ay with HIV-1 p24 antigen detectionOrdered By: Ayanna Waldron on 03-25-2024 HIV 1+2 Ab+HIV1 p24 Ag IA Ql Non-Reactive Non Reactive [facility] Comment on above: HIV-1/HIV-2 antibodi es and HIV-1 p24 antigen were NOTdetected. There is no laboratory evidence of HIV infection.HIV NegativePerformed at: [address] [id number] Director: Prashanth Cat PhD, Phone: [phone] Hep B Real-Time PCR, Quanton 03-25-2024 HBV As IU/mL Not detected Normal . [facility] Comment on above: Performed By: #### H BV PCR, HBSAB, HEMOCHROM, HBCAB, HBeAG, HIV SCREEN, HBEAB, HAABT, HAAB, HCBIGM, HCV RX PCR, HDAB, HBSAG, CERULOP, ALPHA PHEN ####[facility] ,#### HEPATIC ####[address] Log10 HBV (As IU/mL) Normal . [facility] Comment on above: Result Comment: Resu lt Units: log10 IU/mL Unable to calculate result since non-numeric result obtained for component test. Performed By: #### H BV PCR, HBSAB, HEMOCHROM, HBCAB, HBeAG, HIV SCREEN, HBEAB, HAABT, HAAB, HCBIGM, HCV RX PCR, HDAB, HBSAG, CERULOP, ALPHA PHEN ####[facility] ,#### HEPATIC ####[address] Test Information: Comment Normal . [facility] Comment on above: Result Comment: The reportable range for this assay is 10 IU/mL to 1 billion IU/mL. Performed at: [address] [id number] Rough Patcher: Girish Kay MD, Phone: [phone] PERFORMED BY: [place] [address] PATHOLOGIST FARM MANAGER CECILY VILLAGRAN M.D. Performed By: #### H BV PCR, HBSAB, HEMOCHROM, HBCAB, HBeAG, HIV SCREEN, HBEAB, HAABT, HAAB, HCBIGM, HCV RX PCR, HDAB, HBSAG, CERULOP, ALPHA PHEN ####[facility] ,#### HEPATIC ####[facility] Hep C Ab wRfx to Qnt PCRon 0 03-25-2024 Hepatitis C Virus Antibody Non-Reactive Normal Non Reactive [facility] Comment on above: Performed By: #### H BV PCR, HBSAB, HEMOCHROM, HBCAB, HBeAG, HIV SCREEN, HBEAB, HAABT, HAAB, HCBIGM, HCV RX PCR, HDAB, HBSAG, CERULOP, ALPHA PHEN #### [facility] , #### HEPATIC #### [facility] [address] Interpretation Hepatitis C Comment Normal . [facility] Comment on above: [...] PHEN #### [facility] , #### HEPATIC #### [facility] [address] Hepatic Panelon 03-25-2024 Albumin [Mass/Vol] 4.7 g/dL Normal 3.5-5.7 [facility] Comment on above: Performed By: #### H BV PCR, HBSAB, HEMOCHROM, HBCAB, HBeAG, HIV SCREEN, HBEAB, HAABT, HAAB, HCBIGM, HCV RX PCR, HDAB, HBSAG, CERULOP, ALPHA PHEN #### [facility] , #### HEPATIC #### [facility] [address] [place] [address] Bilirubin,Indirect 0.8 mg/dL Normal [facility] Comment on above: Performed By: #### H BV PCR, HBSAB, HEMOCHROM, HBCAB, HBeAG, HIV SCREEN, HBEAB, HAABT, HAAB, HCBIGM, HCV RX PCR, HDAB, HBSAG, CERULOP, ALPHA PHEN #### [facility] , #### HEPATIC #### [facility] [address] [place] [address] Bilirubin.indirect [Mass/Vol] 0.10 mg/dL Normal 0.03-0.18 [facility] Comment on above: Performed By: #### H BV PCR, HBSAB, HEMOCHROM, HBCAB, HBeAG, HIV SCREEN, HBEAB, HAABT, HAAB, HCBIGM, HCV RX PCR, HDAB, HBSAG, CERULOP, ALPHA PHEN #### [facility] , #### HEPATIC #### [facility] [address] [place] [address] Hepatitis A Antibody IgMon 0 03-25-2024 Hepatitis A Antibody IgM Negative Normal Negative [facility] Comment on above: Result Comment: A ne gative anti-HAV IgM result suggests no recent or current HAV infection. Performed By: #### H BV PCR, HBSAB, HEMOCHROM, HBCAB, HBeAG, HIV SCREEN, HBEAB, HAABT, HAAB, HCBIGM, HCV RX PCR, HDAB, HBSAG, CERULOP, ALPHA PHEN #### [facility] , #### HEPATIC #### [address] Hepatitis A Antibody Totalon 03-25-2024 Hepatitis A Antibody Total Negative Normal Negative [facility] Comment on above: [...] total antibody results to IgM (e.g., panel #[id number] HAV Antibody w/ Rfx). Performed By: #### H BV PCR, HBSAB, HEMOCHROM, HBCAB, HBeAG, HIV SCREEN, HBEAB, HAABT, HAAB, HCBIGM, HCV RX PCR, HDAB, HBSAG, CERULOP, ALPHA PHEN #### [facility] , #### HEPATIC #### [facility] [address] Hepatitis A virus Ab [Presen ce] in Serum by ImmunoassayOrdered By: Ayanna Waldron on 03-25-2024 HAV Ab IA Ql (S) Negative Negative [facility] Comment on above: Comment: The HAV [...] HAVtotal antibody results to IgM (e.g., panel #[id number] HAVAntibody w/ Rfx). Hepatitis B Core Antibodyon 03-25-2024 Hepatitis B Core Antibody Positive Critically abnormal Negative [facility] Comment on above: Performed By: #### H BV PCR, HBSAB, HEMOCHROM, HBCAB, HBeAG, HIV SCREEN, HBEAB, HAABT, HAAB, HCBIGM, HCV RX PCR, HDAB, HBSAG, CERULOP, ALPHA PHEN ####[facility] ,#### HEPATIC ####[facility] [id number] Hepatitis B Core Antibody Ig Mon 03-25-2024 Hepatitis B Core Antibody IgM Negative Normal Negative [facility] Comment on above: Result Comment: Perf ormed at: - [facility] [address] [id number] Rough Patcher: Prashanth Cat PhD, Phone: [phone] Performed By: #### H BV PCR, HBSAB, HEMOCHROM, HBCAB, HBeAG, HIV SCREEN, HBEAB, HAABT, HAAB, HCBIGM, HCV RX PCR, HDAB, HBSAG, CERULOP, ALPHA PHEN #### [facility] , #### HEPATIC #### [facility] [address] Hepatitis B Surface Antibody on 03-25-2024 Hepatitis B Surface Antibody Reactive Normal . [facility] Comment on above: [...] PHEN #### [facility] , #### HEPATIC #### [facility] [address] Hepatitis B Surface Antigeno n 03-25-2024 HBsAg Screen Negative Normal Negative [facility] Comment on above: Result Comment: PERF ORMED BY: [facility] [address] [place] [address] PATHOLOGIST FARM MANAGER CECILY VILLAGRAN M.D. Performed By: #### H BV PCR, HBSAB, HEMOCHROM, HBCAB, HBeAG, HIV SCREEN, HBEAB, HAABT, HAAB, HCBIGM, HCV RX PCR, HDAB, HBSAG, CERULOP, ALPHA PHEN ####[facility] ,#### HEPATIC ####[facility] Hepatitis B virus surface Ab [Presence] in SerumOrdered By: Imad Asaad on 03-25-2024 HBV surface Ab Ql (S) Reactive . [facility] Comment on above: Non Reactive: Not im [...] HBV surface Ag IA Ql Negative Negative [facility] Hepatitis Be Antibodyon 03-07 Hepatitis Be Antibody Reactive Critically abnormal Negative [facility] Comment on above: Performed By: #### H BV PCR, HBSAB, HEMOCHROM, HBCAB, HBeAG, HIV SCREEN, HBEAB, HAABT, HAAB, HCBIGM, HCV RX PCR, HDAB, HBSAG, CERULOP, ALPHA PHEN ####[facility] ,#### HEPATIC ####[facility] [id number] [place] [id number] [facility] Hepatitis Be Antigenon 03-25 Hepatitis Be Antigen Negative Normal Negative [facility] Comment on above: Performed By: #### H BV PCR, HBSAB, HEMOCHROM, HBCAB, HBeAG, HIV SCREEN, HBEAB, HAABT, HAAB, HCBIGM, HCV RX PCR, HDAB, HBSAG, CERULOP, ALPHA PHEN ####[facility] ,#### HEPATIC ####[facility] [id number] Hepatitis C virus IgG Ab [Pr esence] in Serum or Plasma by ImmunoassayOrdered By: Ayanna Waldron on 03-25-2024 HCV IgG IA Ql Non-Reactive Non Reactive [facility] Hepatitis Delta AntibodyOrde red By: Ayanna Waldron on 03-25-2024 Hepatitis Delta Antibody Non-Reactive Normal [facility] Comment on above: Reference: Non React iveInterpretation: No laboratory evidence of hepatitis D virus (HDV) infection or past exposure to HDVPerforming Labs01: CB - [facility] [address] [address] Dir: Prashanth Cat, PhD02: - [facility] [address] [address] Dir: Girish Kay MDFor Inquiries, the physician may contact Branch: [phone] Lab: [phone] Result Comment: Reference: Non Reactive Interpretation: No laboratory evidence of hepatitis D virus (HDV) infection or past exposure to HDV Performing Labs 01: CB - [facility] [place], [address] [place] [address] Dir: Prashanth Cat, PhD 02: - [facility] [place], [address] [place] [address] Dir: Girish Kay MD For Inquiries, the physician may contact Branch: [phone] Lab: [phone] Performed By: #### H BV PCR, HBSAB, HEMOCHROM, HBCAB, HBeAG, HIV SCREEN, HBEAB, HAABT, HAAB, HCBIGM, HCV RX PCR, HDAB, HBSAG, CERULOP, ALPHA PHEN ####[facility] ,#### HEPATIC ####[facility] [id number] [place] [id number] [facility] Hereditary Hemochromatosis,Candice Garcia 03-25-2024 Hereditary Hemochromatosis Comment Normal . [facility] Comment on above: Result Comment: Resu lts: c.845G>A (p.Kzl277Atm) - Not Detected c.187C>G (p.Wth87Qok) - Detected, heterozygous c.193A>T (p.Fhu56Kfb) - Not Detected Not associated with increased [...] for patients who are homozygous for c.845G>A (p.Jjs807Gfy) and have yet to experience clinical symptoms. Comments: The most common HFE variants associated with hereditary hemochromatosis are c.845G>A (p.Gmu920Ghw), c.187C>G (p.Mww71Nlf), c.193A>T (p.Xsg89Uhf). While patients homozygous for c.845G>A (p.Pit925Nfw) are the most likely to present clinical symptoms, less than 10% develop clinically significant iron overload with tissue and organ damage. Genetic counseling is recommended to discuss the potential clinical implications of positive results, as well as recommendations for testing family members. Genetic Coordinators are available for health care providers to discuss results at [phone] Test Details: Three variants analyzed: c.845G>A (p.Oru065Dxg), commonly referred to as C282Y c.187C>G (p.Qcl07Cgp), commonly referred to as H63D c.193A>T (p.Nhh23Uks), commonly referred to as S65C Methods/Limitations: DNA [...] developed and its performance characteristics determined by [employer]. It has not been cleared or approved by the Food and Drug Administration. References: Jorden BR, Jin PC, Fernandez KV, Jarret LW, Michell ; [employer] for the Study of Liver Diseases. Diagnosis and management of hemochromatosis: 2011 practice guideline by the [employer] the [employer] of Liver Diseases. Hepatology. 2011 Jan;54(1):328-43. doi: 10.1002/hep.08561. PMID: 03823137; PMCID: [id number]. Dakota G, Paramjit P, Kina SANCHEZ, Kathryn H, Rosemary O, Lucian S, Casey I, Mahad [place], Lauren S. [employer] best practice guidelines for the molecular genetic diagnosis of hereditary hemochromatosis (HH). Eur J Hum Alisha. 2016 Oct;24(4):479-95. doi: 10.1038/ejhg.2015.128. Epub 2014Jan 11. PMID: 13385110; PMCID: [id number]. Performed By: #### H BV PCR, HBSAB, HEMOCHROM, HBCAB, HBeAG, HIV SCREEN, HBEAB, HAABT, HAAB, HCBIGM, HCV RX PCR, HDAB, HBSAG, CERULOP, ALPHA PHEN ####[facility] ,#### HEPATIC ####[place] [address] [address] Reviewed by: Comment Normal . [facility] Comment on above: Result Comment: Tim Ovalle, PhD FACMG Performed at: [employer] [facility] [address] [employer] [place], [place] [id number] Rough Patcher: Yolanda Lynne [facility], Phone: [phone] PERFORMED BY: [place] [address] PATHOLOGIST FARM MANAGER CECILY VILLAGRAN M.D. Performed By: #### H BV PCR, HBSAB, HEMOCHROM, HBCAB, HBeAG, HIV SCREEN, HBEAB, HAABT, HAAB, HCBIGM, HCV RX PCR, HDAB, HBSAG, CERULOP, ALPHA PHEN ####[facility] ,#### HEPATIC ####[place] [address] [address] No Panel InformationOrdered By: Ayanna Waldron on 03-25-2024 Hemochromatosis Note Comment . [facility] Comment on above: Eduardo Ovalle, PhD FA CMGPerformed at: [employer] [id number], [facility], [place], [place] [id number] Director: Yolanda Lynne [facility], Phone: [phone] Hepatitis A IgM Antibody Negative Negative [facility] Comment on above: A negative anti-HAV IgM result suggests no recent orcurrent HAV infection. Hepatitis B Core IgM Antibody Negative Negative [facility] Comment on above: Performed at: [address] [id number] Director: Prashanth Cat PhD, Phone: [phone] Hepatitis B Core Total Antibody Positive Abnormal Negative [facility] Hepatitis B DNA Test Information Comment . [facility] Comment on above: The reportable range for this assay is 10 IU/mL to 1billion IU/mL.Performed at: [place] [id number] [place], [place] [id number] Director: Girish Kay MD, Phone: [phone] Hepatitis C Interpretation Comment . [facility] Comment on above: Not infected with HC V unless early or acute infection issuspected (which may be delayed in an immunocompromisedindividual), or other evidence exists to indicate HCVinfection. Protein [Mass/volume] in Ser um or PlasmaOrdered By: adonay Tomas on 03-25-2024 Protein [Mass/Vol] 7.7 g/dL Normal 6.4-8.9 [facility] Comment on above: Performed By: #### H BV PCR, HBSAB, HEMOCHROM, HBCAB, HBeAG, HIV SCREEN, HBEAB, HAABT, HAAB, HCBIGM, HCV RX PCR, HDAB, HBSAG, CERULOP, ALPHA PHEN #### [facility] , #### HEPATIC #### [address] Qualitative serum or plasma hepatitis B virus e antibody by enzyme immunoassayOrdered By: adonay [facility] on 03-25-2024 HBV e Ab IA Ql Reactive Abnormal Negative [facility] Serum fhlwl-4-fntgiaebnln me asurementOrdered By: [facility] on 03-25-2024 Alpha 1 antitrypsin [Mass/Vol] 119 mg/dL 101-187 [facility] Serum globulin measurement b y calculation (mass/volume)Ordered By: [facility] on 03-25-2024 Globulin (S) [Mass/Vol] 3.0 g/dL Normal [facility] Comment on above: Performed By: #### H BV PCR, HBSAB, HEMOCHROM, HBCAB, HBeAG, HIV SCREEN, HBEAB, HAABT, HAAB, HCBIGM, HCV RX PCR, HDAB, HBSAG, CERULOP, ALPHA PHEN #### [facility] , #### HEPATIC #### [facility] [address] [place] [id number] [facility] Serum hepatitis B virus e an tigen detection by enzyme immunoassayOrdered By: Ayanna Waldron on 03-25-2024 HBV e Ag IA Ql Negative Negative [facility] Serum or plasma albumin/glob ulin mass ratioOrdered By: Ayanna Waldron on 03-25-2024 Albumin/Globulin [Mass ratio] 1.6 {ratio} Normal [facility] Comment on above: Performed By: #### H BV PCR, HBSAB, HEMOCHROM, HBCAB, HBeAG, HIV SCREEN, HBEAB, HAABT, HAAB, HCBIGM, HCV RX PCR, HDAB, HBSAG, CERULOP, ALPHA PHEN #### [facility] , #### HEPATIC #### [facility] [address] Serum or plasma alpha 1 anti trypsin phenotyping identification by immunofixationOrdered By: Ayanna Waldron on 03-25-2024 Alpha 1 antitrypsin phenotyping Immunofixation Nom Mz . [facility] Comment on above: MM Phenotype is co nsidered to be normal , producingnormal serum levels of islbi-6-maekhpdm inhibitor andnot associated with clinical disease. Associated I1Rualzk serum levels in other phenotypes and theirincidence [...] reference. Ranges used to confirm phenotype.Performed at: [facility] [address] [id number] Director: Prashanth Cat PhD, Phone: [phone] at: [facility] [address] [id number] Director: Girish Kay MD, Phone: [phone] Serum or plasma ceruloplasmi n measurement (mass/volume)Ordered By: Ayanna Waldron on 03-25-2024 Ceruloplasmin [Mass/Vol] 32.5 mg/dL High 16.0-31.0 [facility] Comment on above: Performed at: - Rewarding Return [address] [id number] Director: Prashanth aCt PhD, Phone: [phone] Serum or plasma hepatitis B virus DNA measurement (units/volume) (viral load) by probOrdered By: Ayanna Waldron on 03-25-2024 HBV DNA CHAUNCEY+probe Qn Not detected . [facility] Serum or plasma hepatitis B virus DNA viral load by probe and target amplification meOrdered By: Ayanna Waldron on 03-25-2024 HBV DNA CHAUNCEY+probe [#/Vol] N/A [facility] HBV DNA CHAUNCEY+probe [Log units/Vol] See comment . [facility] Comment on above: Result Units: log10 IU/mLUnable to calculate result since non-numeric resultobtained for component test. Serum or plasma non-glucuron idated bilirubin measurement (mass/volume)Ordered By: Ayanna Waldron on 03-25-2024 Bilirubin.indirect [Mass/Vol] 0.8 mg/dL [facility] 36on 03-10-2024 36 Per liudmila Horne patient's [...] and verbalized understanding. Felicity Bailon MA [facility] Office Visiton 03-10-2024 Follow-up visit [id number] Javier Nielsen 1965 M Date Provider Department Center 03/10/2024 68540-DNMUEQELISABETH NGUYEN RADHA [facility] Family History Problem Relation Age of Onset Cancer Mother COPD Father Family Status - Relation Status Age at Mother Father Level of Service:25716 [place] OFFICE/OUTPATIENT ESTABLISHED MOD MDM 30 MIN Reason for Visit and Comments: Hypertension [497449] - Pt is here for a six to eight week follow up. Normal [facility] MR head/brain wo/w conon MR head/brain wo/w con [facility] [place] [address] [place] [address] MRI Report Signed Patient: Ahsan Nielsen MR#: [id number] : 1965 Acct:[id number] Age/Sex: 58 / M ADM Date: 02/06/24 Loc: MR Room: Type: [facility] Attending Dr: Jamaica Borges DO Copies [...] Rey Jr., D.O.02/06/2024 7:24 PM Dictation Location: [place] [address] Transcribed By: [facility] 02/06/241923 Dictated By: Shiva Rey Jr, DO 02/06/241920 Signed By: 02/06/241923 Normal [facility] Office Visiton 01-19-2024 Follow-up visit [id number] Javier Nielsen A 1965 M Date Provider Department Center 01/19/2024 ELISABETH BOOTH Family History Problem Relation Age of Onset Cancer Mother COPD Father Family Status - Relation Status Age at Mother Father Level of Service:60135 ND OFFICE/OUTPATIENT ESTABLISHED MOD MDM [address] [facility] 36on 01-15-2024 36 Regarding echo resul t from 01/07/2024: MD Michelle Shetty MA Please notify patient his echo appears to be normal. Continue current management. Thank you Attempted to call patient's home #. The automated system said this line was currently suspended. I then called the cell # twice and it was busy. Normal [facility] 36on 12-16-2023 36 Regarding lab result s from 12/12/2023: MD Michelle Shetty MA Notify patient that his lipids shows mildly elevated LDL cholesterol, follow low-fat diet. His TSH and a.m. cortisol level are normal Spoke with patient's and made her aware. Normal [facility] Orders Onlyon 12-11-2023 Orders Only [id number] Javier Nielsen A 1965 M Date Provider Department Center 12/11/2023 KAITLIN ROY Family History Problem Relation Age of Onset Cancer Mother COPD Father Family Status - Relation Status Age at Mother Father Normal [facility] Office Visiton 12-10-2023 Follow-up visit [id number] Javier Nielsen A 1965 M Date Provider Department Center 12/10/2023 ELISABETH BOOTH Family History Problem Relation Age of Onset Cancer Mother COPD Father Family Status - Relation Status Age at Mother Father Level of Service:88856 ND OFFICE/OUTPATIENT NEW MODERATE MDM [address] [facility] Family Medicine Office/Clini c Noteon 11-27-2018 [...] Guille Khan PA-C 11/27/18 15:46 EDT Normal [facility] .eGFRon 11-20-2018 eGFR AA >60 Normal >=60 [facility] Comment on above: Result Comment: Resu lt = 0-14.9 mL/min/1.73 m2 Kidney failure or Dialysis Result = 15-29 mL/min/1.73 m2 Severe decrease in GFR Result = 30-59 mL/min/1.73 m2 Moderate decrease in GFR Result >= 60 mL/min/1.73 m2 Normal or increased GFR Performed By: #### E GFR #### [address] [address] eGFR Non-AA >60 Normal >=60 [facility] Comment on above: Result Comment: Resu [...] dosing. Performed By: #### E GFR #### [address] [address] AMI 2Hron 11-20-2018 2 Hour Myoglobin 22.0 ng/mL Normal 17.4-105.7 [facility] Comment on above: Performed By: #### C BC #### [address] [address] Troponin I.cardiac [Mass/Vol] ng/mL Normal 0.00-0.03 [facility] Comment on above: Result Comment: An i ncreased Troponin-I value, in the absence of myocardial ischemia, may indicate other etiologies of cardiac damage. Performed By: #### C BC #### [address] [address] AMI Initon 11-20-2018 Initial Myoglobin 29.0 ng/mL Normal 17.4-105.7 [facility] Comment on above: Performed By: #### A MI1 #### [address] [address] Troponin I.cardiac [Mass/Vol] ng/mL Normal 0.00-0.03 [facility] Comment on above: Result Comment: An i ncreased Troponin-I value, in the absence of myocardial ischemia, may indicate other etiologies of cardiac damage. Performed By: #### A MI1 #### [address] [address] GGW1Uxfr 11-20-2018 6 Hour Myoglobin 27.0 ng/mL Normal 17.4-105.7 [facility] Comment on above: Performed By: #### C BC #### [address] [address] Troponin I.cardiac [Mass/Vol] ng/mL Normal 0.00-0.03 [facility] Comment on above: Result Comment: An i ncreased Troponin-I value, in the absence of myocardial ischemia, may indicate other etiologies of cardiac damage. Performed By: #### C BC #### [address] [address] Basic Metabolic Profileon Anion gap [Moles/Vol] 14 mmol/L Normal 7-17 [facility] Comment on above: Performed By: #### C [id number] #### [address] [address] Calcium [Mass/Vol] 8.7 mg/dL Normal 8.5-10.3 [facility] Comment on above: Performed By: #### C [id number] #### [address] [address] Chloride [Moles/Vol] 105 mmol/L Normal 98-110 [facility] Comment on above: Performed By: #### C [id number] #### [address] [address] CO2 [Moles/Vol] 22 mmol/L Normal 22-32 [facility] Comment on above: Performed By: #### C [id number] #### [address] [address] Creatinine [Mass/Vol] 0.70 mg/dL Normal 0.61-1.24 [facility] Comment on above: Performed By: #### C [id number] #### [address] [address] Glucose [Mass/Vol] 100 mg/dL Normal 74-118 [facility] Comment on above: Performed By: #### C [id number] #### [address] [address] Potassium [Moles/Vol] 4.4 mmol/L Normal 3.4-4.8 [facility] Comment on above: Performed By: #### C [id number] #### [address] [address] Sodium [Moles/Vol] 137 mmol/L Normal 133-142 [facility] Comment on above: Performed By: #### C [id number] #### [address] [place] [address] Urea nitrogen [Mass/Vol] 13 mg/dL Normal 8-26 [facility] Comment on above: Performed By: #### C [id number] #### [address] [address] Urea nitrogen/Creatinine [Mass ratio] 18.6 mg/mg Normal 10.0-20.0 [facility] Comment on above: Performed By: #### C [id number] #### [address] [address] CBC w/ Diffon 11-20-2018 Erythrocyte distribution width (RBC) [Ratio] 13.0 % Normal 11.6-14.8 [facility] Comment on above: Performed By: #### C BC #### [address] [address] Hematocrit (Bld) [Volume fraction] 46.3 % Normal 41.0-53.0 [facility] Comment on above: Performed By: #### C BC #### [address] [address] Hemoglobin (Bld) [Mass/Vol] 15.8 g/dL Normal 13.5-17.5 [facility] Comment on above: Performed By: #### C BC #### [address] [address] MCH (RBC) [Entitic mass] 32.5 pg Normal 27.0-35.0 [facility] Comment on above: Performed By: #### C BC #### [address] [address] MCHC (RBC) [Mass/Vol] 34.1 % Normal 31.0-37.0 [facility] Comment on above: Performed By: #### C BC #### [address] [address] MCV (RBC) [Entitic vol] 95.3 fL Normal 80.0-100.0 [facility] Comment on above: Performed By: #### C BC #### [address] [address] Platelet mean volume (Bld) [Entitic vol] 8.6 fL Normal 6.7-10.6 [facility] Comment on above: Performed By: #### C BC #### [address] [address] Platelets (Bld) [#/Vol] 202 x10*3/mcL Normal 150-350 [facility] Comment on above: Performed By: #### C BC #### [address] [address] RBC (Bld) [#/Vol] 4.86 x10*6/mcL Normal 4.30-5.80 [facility] Comment on above: Performed By: #### C BC #### [address] [address] WBC (Bld) [#/Vol] 12.8 x10*3/mcL High 4.5-11.0 [facility] Comment on above: Performed By: #### C BC #### [address] [address] Cardiology Consultationon Cardiology Consultation Chief Complaint dyspnea [...] No qualifying data available. Electronically signed by Lincoln Monk MD 11/20/18 16:18 EDT Normal [facility] Shoe Shiner Progress Noteon 11-20-2018 Shoe Shiner Progress Note CM met with patient before huddles today. He is new to the floor from ER for chest pain. he is asking to go home since unable to do a stress test today. CM will update RN, educated patient on remaining in the hospital while labs are trending for AR. He does have insurance, independent with adl's, [...] Recieved a call back from Dr. quintana national secretary. Upon discussion, we reviewed patient listed [...] established. Refuses to speak to patient financial services coordinator when CM offered. Offered self pay education pamphlet as well, pt refuses stating he will get it figured out. CM put financial assistance program in chart for Discharge. Electronically signed by Leidy Chapin 11/20/18 14:32 EDT Normal [facility] D-Dimeron 11-20-2018 Fibrin D-dimer FEU IA (Bld) [Mass/Vol] 0.34 mg/L feu Normal 0.00-0.49 [facility] Comment on above: Result Comment: Resu [...] assay. Performed By: #### D MARISOL #### [address] [address] Diff Autoon 11-20-2018 Baso Absolute 0.1 x10*3/mcL Normal 0.0-0.2 [facility] Comment on above: Performed By: #### . Automated Diff #### [address] [address] Basophils/100 WBC (Bld) 0.8 % Normal 0.0-1.2 [facility] Comment on above: Performed By: #### . Automated Diff #### [address] [address] Eos Absolute 0.2 x10*3/mcL Normal 0.0-0.4 [facility] Comment on above: Performed By: #### . Automated Diff #### [address] [address] Eosinophils/100 WBC (Bld) 1.9 % Normal 0.0-6.1 [facility] Comment on above: Performed By: #### . Automated Diff #### [address] [address] Lymphocytes (Bld) [#/Vol] 3.5 x10*3/mcL Normal 1.0-4.8 [facility] Comment on above: Performed By: #### . Automated Diff #### [address] [address] Lymphocytes/100 WBC (Bld) 27.3 % Normal 27.2-40.8 [facility] Comment on above: Performed By: #### . Automated Diff #### [address] [address] Weld Absolute 0.9 x10*3/mcL Normal 0.3-1.1 [facility] Comment on above: Performed By: #### . Automated Diff #### [address] [address] Monocytes/100 WBC (Bld) 6.9 % Normal 4.7-13.9 [facility] Comment on above: Performed By: #### . Automated Diff #### [address] [address] Neutro Absolute 8.1 x10*3/mcL High 1.8-7.7 [facility] Comment on above: Performed By: #### . Automated Diff #### [address] [address] Neutro Auto 63.1 % Normal 47.2-70.8 [facility] Comment on above: Performed By: #### . Automated Diff #### [facility] [address] [place] [address] ED Clinical Summaryon 2018 ED Clinical Summary (Inserted Image. Ale ble to display) [address] [address] ED Clinical Summary Person Information Name: Ahsan Nielsen/[facility] Age: 53 Years : 1965 Sex: Male PCP: Marital Status: Single Phone: Race: White Ethnicity: Not or Language: Burkinan Visit Reason: Dyspnea; Chest pain - Cardiac Acuity: 2 Enc Type: Observation Med Service: Emergency Medicine Arrival: 11/20/2018 07:05:00 Discharge: LOS: 000 01:54 Checkin: 11/20/2018 07:05:00 Checkout: 11/20/2018 08:59:41 Dispo Type: Admitted to ICU Address: [address] [place], [place] [id number] Provider Notes: History of Present Illness Patient [...] range between ( 27.2 and 40.8 ) Weld Auto: 6.9 % -- Normal range between [...] range between ( 41.0 and 53.0 ) Weld Absolute: 0.9 x10 MCH: 32.5 pg -- [...] Jen Bey DO Patient Education Information: [facility] Poison Help line: . [facility] Hotline: [place] Tobacco Quit Line: [place], [place]) [address]: [phone] [facility] ([place], [place]) [address]: [phone] [facility] [address] [place], [place]: [phone] Normal [facility] ED Note-Nursingon 11-20-2018 ED Note-Nursing Apron Cleaner obtained admi ssion room - CCU charge nurse requests 10 minutes before transport Electronically signed by Rachel Sandra 11/20/18 08:47 EDT Normal [facility] ED Note-Physicianon 11-21-19 ED Note-Physician Chief [...] in this document, created by the medical director for me, accurately reflects the [...] from someone other than the patient: Reviewed [facility] EMR to see if recent visits or hospitalizations. Review and summarized past medical records if pertinent and available in [employer]: Data Interpretation: I have have reviewed returned data from lab. Clinically important interpretation is: CBC is unremarkable Basic Metabolic panel with normal renal function, no significant abnormality Coags normal Initial cardiac enzymes negative d-d-marisol neg EKG: EKG time: 0707 Rhythm:[normal sinus] Rate:88 [place]:[normal] QRS:81 QT interval:399 ST/T wave changes: No [...] 07:12 63.1 Lymph Auto 11/20/18 07:12 27.3 Weld Auto 11/20/18 07:12 6.9 Eos Auto 11/20/18 07:12 1.9 Basophil Auto 11/20/18 07:12 0.8 Neutro Absolute 11/20/18 07:12 8.1 High Lymph Absolute 11/20/18 07:12 3.5 Weld Absolute 11/20/18 07:12 0.9 Eos Absolute 11/20/18 [...] Ramy Dooley DO 11/20/2018 08:35 EDT Normal [facility] History and Physicalon 11-20 History and [...] 95.3 (11/20/18) Mean Platelet Volume: 8.6 (11/20/18) Weld Absolute: 0.9 (11/20/18) Weld Auto: 6.9 (11/20/18) Neutro Absolute: 8.1 (11/20/18) Neutro Auto: 63.1 (11/20/18) PT: 9.7 (11/20/18) PTT: 24.2 (11/20/18) RBC: 4.86 (11/20/18) RDW: 13.0 (11/20/18) Assessment/Plan 1. Chest pain Rule out AR Stress test Cardiology consult 2. Dyspnea Repeat [...] Gee Jones MD 11/20/18 10:06 EDT Normal [facility] Inpatient Clinical Summaryon 11-20-2018 Inpatient Clinical Summary [address] [address] [address] Clinical Summary Person Information Name: Ahsan Nielsen Age: 53 Years : 1965 Sex: Male PCP: Marital Status: Single Phone: PCP: Race: White Ethnicity: Not or Language: Burkinan Visit Id: Visit Reason: Dyspnea; Chest pain - Cardiac Speciality: Acuity: Enc Type: Observation Med Service: Emergency Medicine Arrival: 11/20/2018 07:05:00 Discharge: Dispo Type: Admitted to ICU Address: [address] [place] [address] Diagnosis: 1:Chest pain; 2:Dyspnea; 3:Palpitations; 4:Hypertension Discharged [...] range between ( 27.2 and 40.8 ) Weld Auto: 6.9 % -- Normal range between [...] range between ( 41.0 and 53.0 ) Weld Absolute: 0.9 x10 MCH: 32.5 pg -- [...] Follow up: With: Address: When: Guille Khan [address] [place] [address], [address] [place] [phone] Business (1) 11/27/2018 15:00:00 Comments: Appointment Scheduled Type Location Start [facility] New Patient Visit 30 [facility] 11/27/2018 15:00:00 11/27/2018 15:30:00 Confirmed Normal [facility] [place] CARDIOLITE W/EXER STRESSo n 11-20-2018 [...] [place] [address] mm Hg/min. Stress ECG: The stress ECG [...] Electronically Signed in Other Vendor System) Normal [facility] PTon 11-20-2018 INR Coag (PPP) [Relative time] 0.9 {INR} Normal <=3.5 [facility] Comment on above: Result Comment: INR has no normal range. INR Therapeutic range is: 2.0-3.0 (AF, CVA, TIAs, DVT prophylaxis, acute DVT) 2.5-3.5 ([facility] heart valves, recurrent thrombosis/emboli) Performed By: #### P TINR #### [place] [id number] PT Coag (PPP) [Time] 9.7 s Normal 9.2-11.7 [facility] Comment on above: Performed By: #### P TINR #### [address] [address] PTTon 11-20-2018 aPTT Coag (Bld) [Time] 24.2 s Normal 20.6-27.7 [facility] Comment on above: Performed By: #### P TT #### [address] [address] XR Chest 1 Viewon 11-20-2018 XR Chest [...] Electronically Signed in Other Vendor System) Normal [facility] XR Chest 2 Viewson 9 XR [...] Electronically Signed in Other Vendor System) Normal [facility] Cult,Urineon 10-25-2017 Cult,Urine Specimen Description .CLEAN CATCH URINE Performed at [address] [place] [address] Special Requests NOT REPORTEDCulture [place] [address] Report Status FINAL 10/25/2017 Normal [facility] Comment on above: Performed By: #### U RC ####[address] [phone] [place] [address] CBC with Diffon 10-24-2017 Abs. Basophil 0.05 k/uL Normal 0.00-0.20 [facility] Comment on above: Performed By: #### C TAMARA FLORES, LIP ####[address] [place] [id number] Abs.Neutrophil (Seg) 5.37 k/uL Normal 1.50-8.10 [facility] Comment on above: Performed By: #### C SANDRA, TAMARA, LIP ####[address] [place] [address] Basophils/100 WBC Auto (Bld) 1 % Normal 0-2 [facility] Comment on above: Performed By: #### C DP, CP, LIP ####[address] [place] [address] Eosinophils 0.57 10*3/uL High 0.00-0.44 [facility] Comment on above: Performed By: #### C DP, CP, LIP ####[address] , [place] [address] Eosinophils/100 leukocytes 7 % High 1-4 [facility] Comment on above: Performed By: #### C DP, CP, LIP ####[address] , [place] [address] Erythrocyte distribution width Auto Ratio (RBC) 13.4 % Normal 11.8-14.4 [facility] Comment on above: Performed By: #### C DP, CP, LIP ####[address] , [facility] Erythrocytes (RBC) 0.0 per 100 WBC Normal 0.0 [facility] Comment on above: Performed By: #### C DP, CP, LIP ####[address] [place] [address] Erythrocytes (RBC) 5.69 10*6/uL Normal 4.21-5.77 [facility] Comment on above: Performed By: #### C DP, CP, LIP ####[address] , [facility] Granulocytes/100 WBC (Bld) 0.04 k/uL Normal 0.00-0.30 [facility] Comment on above: Result Comment: Perf ormed at [address] [place] [address] Performed By: #### C DP, CP, LIP ####[address] , [facility] Hematocrit (HCT) 51.0 % High 40.7-50.3 [facility] Comment on above: Performed By: #### C DP, CP, LIP ####[address] , [place] [address] Hemoglobin mass conc (Bld) 18.0 g/dL High 13.0-17.0 [facility] Comment on above: Performed By: #### C DP, CP, LIP ####[address] , [facility] Immature granulocytes #/vol (Bld) 1 % High 0 [facility] Comment on above: Performed By: #### C DP, CP, LIP ####[address] , [facility] Lymphocytes 1.35 10*3/uL Normal 1.10-3.70 [facility] Comment on above: Performed By: #### C DP, CP, LIP ####[address] , [place] [address] Lymphocytes/100 leukocytes 15 % Low 24-43 [facility] Comment on above: Performed By: #### C DP, CP, LIP ####[address] , [facility] MCH 31.6 pg Normal 25.2-33.5 [facility] Comment on above: Performed By: #### C DP, CP, LIP ####[address] [place] [address] MCHC mass conc (RBC) 35.3 g/dL High 28.4-34.8 [facility] Comment on above: Performed By: #### C DP, CP, LIP ####[address] [place] [address] MCV 89.6 fL Normal 82.6-102.9 [facility] Comment on above: Performed By: #### C DP, CP, LIP ####[address] [place] [address] Monocytes 1.36 10*3/uL High 0.10-1.20 [facility] Comment on above: Performed By: #### C DP, CP, LIP ####[address] [place] [address] Monocytes/100 leukocytes 16 % High 3-12 [facility] Comment on above: Performed By: #### C DP, CP, LIP ####[address] [place] [address] Neutrophil (Seg) 61 % Normal 36-65 [facility] Comment on above: Performed By: #### C DP, CP, LIP ####[address] , [facility] Platelet mean volume (PMV) 10.5 fL Normal 8.1-13.5 [facility] Comment on above: Performed By: #### C DP, CP, LIP ####[address] [place] [address] Platelets 186 10*3/uL Normal 138-453 [facility] Comment on above: Performed By: #### C DP, CP, LIP ####[address] , [id number] WBC (Leukocytes) 8.7 10*3/uL Normal 3.5-11.3 [facility] Comment on above: Performed By: #### C DP, CP, LIP ####[address] [place] [id number] Auto Diff Performed NOT REPORTED Normal [facility] Comment on above: Performed By: #### C DP, CP, LIP ####[address] [place] [address] Erythrocyte morphology NOT REPORTED Normal [facility] Comment on above: Performed By: #### C DP, CP, LIP ####[address] [place] [address] Platelets NOT REPORTED Normal [facility] Comment on above: Performed By: #### C DP, CP, LIP ####[address] [place] [address] WBC Morphology NOT REPORTED Normal [facility] Comment on above: Performed By: #### C DP, CP, LIP ####[address] [place] [address] Comp Metabolic Profon 2017 (cont.) Normal [facility] Comment on above: Result Comment: Aver age GFR for 50-59 years old: 93 mL/min/1.73sq mChronic Kidney Disease: <60 mL/min/1.73sq mKidney failure: <15 mL/min/1.73sq meGFR calculated using average adult body mass. Additional eGFR calculator available at:http://www.[employer]/multiple_crcl_2012.htm Performed By: #### C DP, CP, LIP ####[address] [place] [address] Alanine aminotransferase (ALT) 18 U/L Normal 5-41 [facility] Comment on above: Performed By: #### C DP, CP, LIP ####[address] [place] [address] Albumin 4.2 g/dL Normal 3.5-5.2 [facility] Comment on above: Performed By: #### C DP, CP, LIP ####[address] [place] [address] Albumin/Globulin Ratio 1.2 {ratio} Normal 1.0-2.5 [facility] Comment on above: Performed By: #### C DP, CP, LIP ####[address] [place] [address] Alkaline Phos 74 U/L Normal 40-129 [facility] Comment on above: Performed By: #### C DP, CP, LIP ####[address] [place] [address] Anion gap 16 mmol/L Normal 9-17 [facility] Comment on above: Performed By: #### C DP, CP, LIP ####[address] [place] [address] Aspartate aminotransferase (AST) 24 U/L Normal <40 [facility] Comment on above: Performed By: #### C DP, CP, LIP ####[address] [place] [address] Bilirubin Ql (U) 0.64 mg/dL Normal 0.3-1.2 [facility] Comment on above: Performed By: #### C DP, CP, LIP ####[address] [place] [address] BUN/CRE Ratio 15 Normal 9-20 [facility] Comment on above: Performed By: #### C DP, CP, LIP ####[address] [place] [address] Calcium 9.2 mg/dL Normal 8.6-10.4 [facility] Comment on above: Performed By: #### C DP, CP, LIP ####[address] [place] [address] Chloride 91 mmol/L Low 98-107 [facility] Comment on above: Performed By: #### C DP, CP, LIP ####[address] [place] [address] CO2 23 mmol/L Normal 20-31 [facility] Comment on above: Performed By: #### C DP, CP, LIP ####[address] [place] [address] Creatinine 0.94 mg/dL Normal 0.70-1.20 [facility] Comment on above: Performed By: #### C SANDRA CP, LIP ####[address] [place] [address] eGFR (non-black) mL/min/{1.73_m2} Normal >60 [facility] Comment on above: Performed By: #### C DP, CP, LIP ####[address] [place] [address] Glucose mass conc 113 mg/dL High 70-99 [facility] Comment on above: Performed By: #### C SANDRA CP, LIP ####[address] [place] [address] Potassium molar conc 4.8 mmol/L Normal 3.7-5.3 [facility] Comment on above: Performed By: #### C DP CP, LIP ####[address] [place] [address] Protein 7.6 g/dL Normal 6.4-8.3 [facility] Comment on above: Performed By: #### C SANDRA CP, LIP ####[address] [place] [address] Sodium 130 mmol/L Low 135-144 [facility] Comment on above: Performed By: #### C DP CP, LIP ####[address] [place] [address] Staging: Normal [facility] Comment on above: Result Comment: Stag e 1: Some kidney damage normal GFRStage 2: Mild kidney damage GFR 60-89Stage 3: Moderate kidney damage GFR 30-59Stage 4: Severe kidney damage GFR 15-29Stage 5: Severe kidney damage GFR <15ESRD - chronic treatment by dialysis or transplantPerformed at [address] [place] [address] Performed By: #### C DP, CP, LIP ####[address] [place] [address] Urea nitrogen 14 mg/dL Normal 6-20 [facility] Comment on above: Performed By: #### C DP, CP, LIP ####[address] [place] [address] Lipaseon 10-24-2017 Lipase 27 U/L Normal 13-60 [facility] Comment on above: Result Comment: Perf ormed at [address] [place] [address] Performed By: #### C DP, CP, LIP ####[address] [place] [address] Urinalysis w/ Microon 2017 ----- Normal [facility] Comment on above: Performed By: #### U AMIC ####[address] [place] [address] Acetaminophen mass conc 1+ Abnormal NEG [facility] Comment on above: Performed By: #### U AMIC ####[address] [place] [address] Bilirubin (direct) Negative Normal NEG [facility] Comment on above: Performed By: #### U AMIC ####[address] [place] [address] Hemoglobin mass conc (Bld) Negative Normal NEG [facility] Comment on above: Performed By: #### U AMIC ####[address] [place] [address] Nitrite,Ur Negative Normal NEG [facility] Comment on above: Performed By: #### U AMIC ####[address] [place] [address] Turbidity CLEAR Normal CLEAR [facility] Comment on above: Performed By: #### U AMIC ####[address] [place] [address] Urine WBC's 0 TO 2 Normal 0-5 [facility] Comment on above: Performed By: #### U AMIC ####[address] [place] [address] Urine, color YELLOW Normal YEL [facility] Comment on above: Performed By: #### U AMIC ####[address] [place] [address] Urine, epithelial cells in sediment 0 TO 2 Normal 0-5 [facility] Comment on above: Result Comment: Perf ormed at [address] [place] [address] Performed By: #### U AMIC ####[address] [place] [address] Urine, erythrocytes 0 TO 2 Normal 0-2 [facility] Comment on above: Performed By: #### U AMIC ####[address] [place] [address] Urine, glucose presence Negative Normal NEG [facility] Comment on above: Performed By: #### U AMIC ####[address] [place] [address] Urine, leukocyte esterase presence Negative Normal NEG [facility] Comment on above: Performed By: #### U AMIC ####[address] [place] [address] Urine, pH 6.5 [pH] Normal 5.0-9.0 [facility] Comment on above: Performed By: #### U AMIC ####[address] [place] [address] Urine, protein presence Negative Normal NEG [facility] Comment on above: Performed By: #### U AMIC ####[address] [place] [address] Urine, specific gravity <1.005 Low 1.010-1.02 0 [facility] Comment on above: Performed By: #### U AMIC ####[address] [place] [address] Urobilinogen,Ur Normal Normal NORM [facility] Comment on above: Performed By: #### U AMIC ####[address] [place] [address] Comment NOT REPORTED Normal [facility] Comment on above: Performed By: #### U AMIC ####[address] [place] [address] Epithelial, Renal NOT REPORTED Normal 0 [facility] Comment on above: Performed By: #### U AMIC ####[address] [place] [address] Mucus Strands NOT REPORTED Normal NONE [facility] Comment on above: Performed By: #### U AMIC ####[address] [place] [address] Other Observations NOT REPORTED Normal NREQ [facility] Comment on above: Performed By: #### U AMIC ####[address] [place] [address] Trichomonas NOT REPORTED Normal NONE [facility] Comment on above: Performed By: #### U AMIC ####[address] [place] [address] Urine, amorphous sediment presence in sediment NOT REPORTED Normal [facility] Comment on above: Performed By: #### U AMIC ####[address] [place] [address] Urine, bacteria in sediment NOT REPORTED Normal [facility] Comment on above: Performed By: #### U AMIC ####[address] [place] [address] Urine, casts in sediment NOT REPORTED Normal [facility] Comment on above: Performed By: #### U AMIC ####[address] [place] [address] Urine, crystals in sediment NOT REPORTED Normal NONE [facility] Comment on above: Performed By: #### U AMIC ####[address] [place] [address] Urine, yeast presence in sediment NOT REPORTED Normal NONE [facility] Comment on above: Performed By: #### U AMIC ####[address] [place] [address] Discharge Summaryon 03-11-20 17 HIM IP Note OR Specifications Checker Normal [facility] Vital Signs Date Time Vital Sign Value Performing Clinician Faci nelliey 06-15-2024 15:57-0500 Body height 177.8 cm Michelle Damonoll PORTAL ADMINISTRATOR Work Phone: [facility] 06-15-2024 15:57-0500 Body mass index (BMI) [Ratio] 25.54 kg/m2 Michelle Damonoll PORTAL ADMINISTRATOR Work Phone: [facility] 06-15-2024 15:57-0500 Body weight 80.74 kg Michelle Banuelos PORTAL ADMINISTRATOR Work Phone: [facility] 06-15-2024 15:57-0500 Diastolic blood pressure 64 mm[Hg] Michelle Damonoll PORTAL ADMINISTRATOR Work Phone: [facility] 06-15-2024 15:57-0500 Heart rate 69 /min Michelle Banuelos PORTAL ADMINISTRATOR Work Phone: [facility] 06-15-2024 15:57-0500 SaO2% (BldA) [Mass fraction] 96 % Michelle Damonoll PORTAL ADMINISTRATOR Work Phone: [facility] 06-15-2024 15:57-0500 Systolic blood pressure 116 mm[Hg] Michelle Damonoll PORTAL ADMINISTRATOR Work Phone: [facility] 03-25-2024 10:10-0400 Body height 177.8 cm PRIMO Jean Work Phone: [facility] 03-25-2024 10:10-0400 Body mass index (BMI) [Ratio] 25.1 kg/m2 PRIMO Jean Work Phone: [facility] 03-25-2024 10:10-0400 Body weight 79.37 kg PRIMO Jean Work Phone: [facility] 03-23-2024 16:25-0400 Body height 177.8 cm Michelle Banuelos PORTAL ADMINISTRATOR Work Phone: [facility] 03-23-2024 16:25-0400 Body mass index (BMI) [Ratio] 25.34 kg/m2 Michelle Banuelos PORTAL ADMINISTRATOR Work Phone: [facility] 03-23-2024 16:25-0400 Body weight 80.11 kg Michelle Banuelos PORTAL ADMINISTRATOR Work Phone: [facility] 03-23-2024 16:25-0400 Diastolic blood pressure 76 mm[Hg] Michelle Banuelos PORTAL ADMINISTRATOR Work Phone: [facility] 03-23-2024 16:25-0400 Heart rate 88 /min Michelle Banuelos PORTAL ADMINISTRATOR Work Phone: [facility] 03-23-2024 16:25-0400 SaO2% (BldA) [Mass fraction] 96 % Michelle Banuelos PORTAL ADMINISTRATOR Work Phone: [facility] 03-23-2024 16:25-0400 Systolic blood pressure 126 mm[Hg] Michelle Banuelos PORTAL ADMINISTRATOR Work Phone: [facility] 02-24-2024 12:45-0400 Body height 177.8 cm Michelle Banuelos PORTAL ADMINISTRATOR Work Phone: [facility] 02-24-2024 12:45-0400 Body mass index (BMI) [Ratio] 25.31 kg/m2 Michelle Banuelos PORTAL ADMINISTRATOR Work Phone: [facility] 02-24-2024 12:45-0400 Body weight 80.02 kg Michelle Banuelos PORTAL ADMINISTRATOR Work Phone: [facility] 02-24-2024 12:45-0400 Diastolic blood pressure 74 mm[Hg] Michelle Banuelos PORTAL ADMINISTRATOR Work Phone: [facility] 02-24-2024 12:45-0400 Heart rate 58 /min Michelle Banuelos PORTAL ADMINISTRATOR Work Phone: [facility] 02-24-2024 12:45-0400 SaO2% (BldA) [Mass fraction] 90 % Michelle Banuelos PORTAL ADMINISTRATOR Work Phone: [facility] 02-24-2024 12:45-0400 Systolic blood pressure 122 mm[Hg] Michelle Banuelos PORTAL ADMINISTRATOR Work Phone: [facility] Healthcare Encounters Encounter Date Encounter Type Care Provider Facility Start: 08-25-2024 End: 08-25-2024 ambulatory [facility] Start: 07-12-2024 End: 07-12-2024 ambulatory [facility] Start: 06-15-2024 End: 06-15-2024 Office outpatient visit 15 minutes Michelle Banuelos PORTAL ADMINISTRATOR Work Phone: [facility] [address] Comment on above: Loss of consciousnes s (CMS/HCC) (Primary Dx); Orthostatic hypotension; Episodic migraine (CMS/HCC); Abnormal finding on MRI of brain; History of hepatitis B; Numbness of right lower extremity Start: 06-15-2024 End: 06-15-2024 ambulatory MICHELLE BANUELOS Not Available Start: 05-05-2024 End: 05-05-2024 Patient encounter procedure PRIMO Jean Work Phone: [facility] [place] Work Phone: Start: 05-05-2024 End: 05-05-2024 ambulatory PRIMO Jean Work Phone: [facility] Work Phone: Start: 04-03-2024 End: 04-03-2024 Patient encounter procedure PRIMO Jean Work Phone: [facility] [place] Work Phone: Start: 04-03-2024 End: 04-03-2024 ambulatory IN ROOM DINING SERVERKarissa Corbin Miranda Work Phone: [facility] Work Phone: Start: 03-31-2024 End: 03-31-2024 Patient encounter procedure IN ROOM DINING SERVERKarissa Corbin Miranda Work Phone: [facility]Digestive [facility] Work Phone: Start: 03-31-2024 End: 03-31-2024 ambulatory IN ROOM DINING SERVER Emerald Miranda Work Phone: [facility] Work Phone: Start: 03-29-2024 End: 03-29-2024 ambulatory MICHELLE BANUELOS Not Available Start: 03-25-2024 End: 03-25-2024 Patient encounter procedure PRIMO Corbin Miranda Work Phone: [facility] [place] Work Phone: Start: 03-25-2024 End: 03-25-2024 ambulatory IN ROOM DINING SERVERKarissa Corbin Miranda Work Phone: [facility] Work Phone: Start: 03-25-2024 End: 03-25-2024 Patient encounter procedure PRIMO Corbin Miranda Work Phone: [facility] Gastroenterology Work Phone: Start: 03-23-2024 End: 03-23-2024 ambulatory MICHELLE BANUELOS Not Available Start: 03-23-2024 End: 03-23-2024 Office outpatient visit 25 minutes Michelle Banuelos PORTAL ADMINISTRATOR Work Phone: [facility] Comment on above: Loss of consciousnes s (CMS/HCC) (Primary Dx); Orthostatic hypotension; Abnormal finding on MRI of brain; History of hepatitis B; Numbness of right lower extremity Start: 03-23-2024 End: 03-23-2024 Bamboo flowsheet Michelle Banuelos PORTAL ADMINISTRATOR Work Phone: [employer] [place] [facility] Start: 03-23-2024 End: 03-23-2024 Bamboo flowsheet Michelle Banuelos PORTAL ADMINISTRATOR Work Phone: [facility] [employer] Start: 03-10-2024 End: 03-10-2024 ambulatory [facility] Start: 03-04-2024 End: 03-04-2024 ambulatory CHRISTBRISEIDA MONTESETT Not Available Start: 03-01-2024 End: 03-01-2024 ambulatory MICHELLE BANUELOS Not Available Start: 02-24-2024 End: 02-24-2024 Bamboo flowsheet Michelle Banuelos PORTAL ADMINISTRATOR Work Phone: [employer] Start: 02-24-2024 End: 02-24-2024 Bamboo flowsheet Michelle Banuelos PORTAL ADMINISTRATOR Work Phone: [facility] Start: 02-24-2024 End: 02-24-2024 Office outpatient visit 25 minutes Michelle Banuelos PORTAL ADMINISTRATOR Work Phone: [facility] Comment on above: Loss of consciousnes s (CMS/HCC) (Primary Dx); Orthostatic hypotension; Abnormal finding on MRI of brain; Numbness of right lower extremity; History of hepatitis B Start: 02-24-2024 End: 02-24-2024 ambulatory MICHELLE BANUELOS Not Available Start: 02-06-2024 End: 02-06-2024 Patient encounter procedure PRIMO Jean Work Phone: [facility] [place] Work Phone: Start: 02-06-2024 End: 02-06-2024 ambulatory PRIMO Jean Work Phone: [facility] Work Phone: Start: 02-03-2024 End: 02-03-2024 ambulatory JAMAICA MONTESETT Not Available Start: 02-02-2024 End: 02-02-2024 ambulatory MICHELLE BANUELOS Not Available Start: 01-20-2024 End: 01-20-2024 ambulatory MICHELLE BANUELOS Not Available Start: 01-19-2024 End: 01-19-2024 ambulatory [facility] Start: 12-24-2023 End: 12-24-2023 ambulatory JAMAICA BORGES Not Available Start: 12-23-2023 End: 12-23-2023 ambulatory JAMAICA BORGES Not Available Start: 12-15-2023 Non-patient / Non-visit PRIMO Corbin McNeal Work Phone: [facility] Gastroenterology Work Phone: Start: 12-10-2023 End: 12-10-2023 ambulatory [facility] Start: 11-20-2018 End: 11-20-2018 Patient encounter procedure GEE JONES Facility:[facility] Start: 10-24-2017 End: 10-24-2017 Emergency department patient visit [facility] Start: 12-27-2016 End: 12-28-2016 Ambulatory [facility] Procedures Date Procedure Procedure Detail Performing Clinician Start: 04-03-2024 Ultrasonography of liver IN ROOM DINING SERVER Emerald BrownNeal Work Phone: Start: 03-31-2024 Ultrasound elastogra phy of liver IN ROOM DINING SERVER Emerald Jean Work Phone: Start: 02-06-2024 MRI of head PRIMO Jean Work Phone: Start: 10-24-2017 NURSING COMMUNICATION S RAINA LONG Start: 10-24-2017 URINALYSIS WITH MICROSCOPIC ANABEL LONG Start: 10-24-2017 URINE CULTURE ANABEL LACY Start: 10-24-2017 CBC WITH AUTO DIFFERENTIAL ANABEL LONG Start: 10-24-2017 COMPREHENSIVE METABO LIC PANEL ANABEL LONG Start: 10-24-2017 LIPASE ANABEL DELGADILLO Start: 10-24-[address] [facility] Plan of Treatment Date Care Activity Detail Author Start: 12-21-2024 End: 12-21-2024 Patient encounter procedure 12/21/2024 9:40 AM EDT Office Visit [facility] [place] [address] [place] [phone] Michelle Banuelos NP [address] [place] [address] [facility] [place] [address] Start: 06-15-2024 End: 06-15-2024 Patient encounter procedure 06/15/2024 4:00 PM EST Office Visit [facility] [place] [facility] [address] [place] [address] Michelle Banuelos NP [address] [place] [address] [facility] [place] [address] Start: 05-05-2024 MR Abdomen WO and W contrast IV [facility] Start: 05-05-2024 MRI of abdomen with contrast MR abdomen wo/w con [facility] Start: 03-31-2024 [facility] Start: 03-29-2024 End: 03-29-2024 Clinical Support 03/29/2024 8:40 AM EDT Clinical Support [facility] [place] [facility] [address] [place] [address] [facility] [place] [facility] Start: 03-25-2024 Ceruloplasmin [Mass/volume] in Serum or Plasma [facility] Start: 03-25-2024 Hepatitis A virus Ab [Presence] in Serum by Immunoassay [facility] Start: 03-25-2024 Hepatitis A virus antibody, IgM type [facility] Start: 03-25-2024 Hepatitis B core antibody measurement [facility] Start: 03-25-2024 Hepatitis B core antibody measurement, IgM type [facility] Start: 03-25-2024 Hepatitis B virus e Ab [Presence] in Serum or Plasma by Immunoassay [facility] Start: 03-25-2024 Hepatitis B virus e Ag [Presence] in Serum or Plasma by Immunoassay [facility] Start: 03-25-2024 Hepatitis B virus surface Ab [Presence] in Serum [facility] Start: 03-25-2024 Measurement of Hepat itis delta virus antibody [facility] Start: 03-25-2024 [facility] Start: 03-23-2024 End: 03-23-2024 Patient encounter procedure 03/23/2024 4:20 PM EDT Office Visit [facility] [place] [facility] [address] [place] [address] Michelle Banuelos NP [address] [place] [phone] [facility] [place] [facility] Start: 03-23-2024 End: 03-23-2025 US.doppler Carotid arteries - bilateral Vascular US carotid artery duplex bilateral Imaging Routine Loss of consciousness (CMS/HCC) Expected: 03/23/2024 (Approximate), Expires: 03/23/2025 [facility] Work Phone: Comment on above: Expected: 03/23/2024 (Approximate), Expires: 03/23/2025 Start: 03-04-2024 End: 03-04-2024 Clinical Support 03/04/2024 8:00 AM EDT [facility] [place] [facility] [address] [facility] [address] [facility] Start: 03-01-2024 End: 03-01-2024 Professional / ancillary services management 03/01/2024 2:45 PM EDT [facility] [place] [facility] [address] [place] [address] [facility] [place] [facility] Start: 02-24-2024 End: 02-23-2025 Home EEG 36-84 Hours Home EEG 36-84 Hours Neurology Routine Loss of consciousness ([facility]/HCC) Expected: 02/24/2024 (Approximate), Expires: 02/23/2025 [facility] Healthcare Work Phone: Comment on above: Expected: 02/24/2024 (Approximate), Expires: 02/23/2025 Start: 02-24-2024 End: 02-24-2024 Patient encounter procedure 02/24/2024 1:00 PM EDT Office Visit [facility] [place] [address] [facility] [address] Michelle Banuelos NP [address] [place] [address] Arrived [facility] [place] [facility] Comment on above: Arrived Alpha 1 antitrypsin [Mass/volume] in Serum or Plasma [facility] Alpha 1 antitrypsin phenotyping [Identifier] in Serum or Plasma by Immunofixation [facility] Hepatitis B virus DN A [#/volume] (viral load) in Serum or Plasma by CHAUNCEY with probe detection [facility] Hepatitis B virus DN A [log units/volume] (viral load) in Serum or Plasma by CHAUNCEY with probe detection [facility] Hepatitis B virus DN A [Units/volume] (viral load) in Serum or Plasma by CHAUNCEY with probe detection [facility] Hepatitis B virus surface Ag [Presence] in Serum or Plasma by Immunoassay [facility] Hepatitis C virus Ig G Ab [Presence] in Serum or Plasma by Immunoassay [facility] HFE gene mutations f ound [Identifier] in Blood or Tissue by Molecular genetics method [facility] HIV 1+2 Ab+HIV1 p24 Ag [Presence] in Serum or Plasma by Immunoassay [facility] Payers Date Payer Category Payer Medicaid [facility] MEDICAID [place] MEDICAID [id number] 2020-Present [address] [place] [id number] 2020 Medicaid (Managed Care) [facility] MEDICAID [id number] 2018 Self-pay 2016 Unknown [id number] 2015 Unknown [id number] 1964 Unknown [id number] [id number]. 196 1964 Unknown [id number] 2.16.840.1.861940.3.579.2. 1259 1964 Unknown [id number] 2.16.840.1.927283.3.579.2. 9 1964 Unknown [id number] 2.16.840.1.063749.3.579.2. 1258 1964 Unknown [id number] 2.16.840.1.504707.3.579.2. 1258 1964 Unknown [id number] 2.16.840.1.783845.3.579.2. 9 1964 Unknown [id number] 2.16.840.1.759426.3.579.2. 9 1964 Unknown [id number] 2.16.840.1.616495.3.579.2. 1258 1964 Unknown [id number] 2.16.840.1.494675.3.579.2. 1258 1964 Unknown [id number] 2.16.840.1.601146.3.579.2. 9 1964 Unknown [id number] 2.16.840.1.392910.3.579.2. 1259 1964 Unknown [id number] Unknown [id number] 531 Unknown [id number] 531 Unknown [id number] 531 Unknown [id number] 531 Unknown [id number] 531 Social History Date Type Detail [facility] Work Phone: Start: 1965 Sex Assigned At Male F [facility] Start: 1979 End: 03-23-2024 Tobacco smoking status NHIS Smokes tobacco daily [facility] Start: 1979 End: 03-21-2024 History of tobacco use Cigarette Smoker [facility] Start: 01-20-2024 End: 03-23-2024 Tobacco use and exposure Smokeless tobacco non-user [facility] Start: 01-20-2024 End: 02-24-2024 Alcoholic beverage intake Current drinker of alcohol (finding) [facility] Start: 01-20-2024 End: 02-24-2024 Alcoholic beverage intake [facility] Start: 01-20-2024 End: 02-24-2024 Tobacco use panel [facility] Start: 1965 Sex assigned at Not on file [facility] Goals Date Patient Goal Desired Activity /State Clinical Notes 12-10-2023 to 08-25-2024 Michelle Banuelos NP - 06/15/2024 4:00 PM EST Note Date & Type Note Facility 08-25-2024 Note [facility] Note Reason for cardiology visit: Follow-up HPI: 08/19/2024 Patient is here today for follow-up visit accompanied by his . He states that he has been doing well. Denies any chest pain or shortness of breath at rest or with exertion. Denies orthopnea or paroxysmal nocturnal dyspnea or dizziness or palpitations. Denies legs edema or leg discomfort on exertion He had sleep study and he is supposed to have a CPAP soon. He continues to smoke half pack per day and he is trying to cut down gradually. He rarely drinks any alcohol 07/12/2024 Patient is here today for follow-up [...] is a longtime smoker. He presented to [facility] last month for syncope. He says [...] mouth once daily as directed. Do not cr (more content not included)... [facility] 07-12-2024 Note [facility] Note Reason for cardiology [...] is a longtime smoker. He presented to [facility] ED last month for syncope. He says [...] kg (178 lb) (more content not included)... [facility] 06-15-2024 History of Present illness Narrative Images [...] wrist extensors , wrist flexor , and social worker health services strength 5/5. LUE strength deltoid , biceps , triceps , wrist extensors , wrist flexor , and social worker health services strength 5/5. RLE strength iliopsoas, quadriceps, tibialis [...] reflex 2+. LLE Knee reflex 2+. Coordination: Ndnpyd-vb-cytq testing normal. Rapid alternating movements are normal. Gait: Normal. Review and summary of old records: Carotid ultrasound at [facility] on 03/29/24: No hemodynamically significant stenosis noted. 1-29% stenosis right and left ICA. Antegrade flow right and left VA. Normal triphasic waveforms noted right and left SCA. Focal area of calcific plaque in the proximal ICAs bilaterally. Ambulatory EEG in 02/2024: Normal 65-hour ambulatory EEG. Orthostatic vital signs at [facility] on 02/24/2024: Positive. Laying - blood pressure 108/71, heart rate 57 beats/min Sitting - blood pressure 144/82, heart rate 59 beats/min Standing for 3 minutes - blood pressure 120/72, heart rate 62 beats/min MRI of the brain w and w/o contrast at [facility] on 02/06/2024: A punctate microhemorrhage seen involving left parietal lobe on the GRE imaging. Cortical atrophy with mild chronic microvascular ischemic changes which appeared to extend into the kylee. EMG of the right lower extremity at [facility] on 02/03/2024: Normal. No evidence of [...] orders for this visit: Loss of consciousness (CMS/HCC) The patient has a history of episodic [...] hydration - Change positions slowly Episodic migraine ([facility]/HCC) It is my impression that the patient has episodic migraine. He reports symptoms clinically consistent with this. He seems to have approximately 2 to 3 migraines per week, and these are effectively relieved by some-xzs-wfxsdde Tylenol. He denies any atypical headache features, [...] new or worsening symptoms. Michelle Banuelos NP [facility] documented in this encounter [facility] 03-25-2024 Evaluation note Authored March 25, [...] -Will arrange for [facility] Work Phone: [phone] 189-719409-17-2024 History of Present illness Narrative* Michelle Banuelos [...] wrist extensors , wrist flexor , and social worker health services strength 5/5. LUE strength deltoid , biceps , triceps , wrist extensors , wrist flexor , and social worker health services strength 5/5. RLE strength iliopsoas, quadriceps, tibialis [...] reflex 2+. LLE Knee reflex 2+. Coordination: Xpcppe-nk-zhbo testing normal. Rapid alternating movements are normal. Gait: Normal. Review and summary of old records: Ambulatory EEG in 02/2024: Normal 65-hour ambulatory EEG. There was no epileptiform activity recorded during the record. There were no seizures recorded during the record. Orthostatic vital signs at [facility] on 02/24/2024: Positive. Laying - blood pressure 108/71, heart rate 57 beats/min Sitting - blood pressure 144/82, heart rate 59 beats/min Standing for 3 minutes - blood pressure 120/72, heart rate 62 beats/min MRI of the brain w and w/o contrast at [facility] on 02/06/2024: A punctate microhemorrhage seen involving left parietal lobe on the GRE imaging. Cortical atrophy with mild chronic microvascular ischemic changes which appeared to extend into the kylee. EMG of the right lower extremity at [facility] on 02/03/2024: Normal. No evidence of [...] orders for this visit: Loss of consciousness (CMS/[facility]) The patient reports episodic loss of consciousness [...] NP [facility] [id number] Instructions* Patient Instructions* Michelle Banuelos NP - 03/23/2024 4:20 PM EDT - Carotid ultrasound documented in [facility] encounter[facility] [id number] [facility] Reason for [...] is a longtime smoker. He presented to [facility] ED last month for syncope. He says [...] and symmetric in b (more content not included)...[facility]08-20-2024 History of Present illness Narrative* Michelle Banuelos [...] wrist extensors , wrist flexor , and social worker health services strength 5/5. LUE strength deltoid , biceps , triceps , wrist extensors , wrist flexor , and social worker health services strength 5/5. RLE strength iliopsoas, quadriceps, tibialis [...] reflex 2+. LLE Knee reflex 2+. Coordination: Prrwfb-ho-hqlo testing normal. Rapid alternating movements are normal. Gait: Normal. Review and summary of old records: Orthostatic vital signs at [facility] on 02/24/2024: Positive. Laying - blood pressure 108/71, heart rate 57 beats/min Sitting - blood pressure 144/82, heart rate 59 beats/min Standing for 3 minutes - blood pressure 120/72, heart rate 62 beats/min MRI of the brain w and w/o contrast at [facility] on 02/06/2024: A punctate microhemorrhage seen involving left parietal lobe on the GRE imaging. Cortical atrophy with mild chronic microvascular ischemic changes which appeared to extend into the kylee. EMG of the right lower extremity at [facility] on 02/03/2024: Normal. No evidence of [...] orders for this visit: Loss of consciousness (CMS/[facility]) It is my impression that the patient [...] NP [facility] documented in this [facility]08-20-2024 Instructions* Patient Instructions* Michelle Banuelos NP - 02/24/2024 1:00 PM EDT - Ambulatory EEG documented in this [facility]07-15-2024 [facility] Reason for [...] is a longtime smoker. He presented to [facility] ED last month for syncope. He says [...] EKG 06/25/2016 Normal si (more content not included)...[facility] 12-10-2023 [facility] Reason [...] is a longtime smoker. He presented to [facility] ED last month for syncope. He says [...] bradycardia or tachyarrhythmias. Dys (more content not included)...[facility] noteNo assessment information [facility] Work Phone: Evaluation note* Diagnosis Loss of consciousness (CMS/HCC)- Primary Other alteration of consciousness Orthostatic hypotension Abnormal finding on MRI of brain History of hepatitis B Personal history of other infectious and parasitic disease Numbness of right lower extremity documented in this encounter [facility] HealthcareEvaluation note* Diagnosis Loss of consciousness (CMS/HCC)- Primary Other alteration of consciousness Orthostatic hypotension Episodic migraine (CMS/HCC) Abnormal finding on MRI of brain History of hepatitis B Personal history of other infectious and parasitic disease Numbness of right lower extremity documented in this encounter [facility] HealthcareEvaluation note* Diagnosis Loss of consciousness (CMS/HCC)- Primary Other alteration of consciousness Orthostatic hypotension Abnormal finding on MRI of brain Numbness of right lower extremity History of hepatitis B Personal history of other infectious and parasitic disease documented in this encounter [facility] Summary Purpose Family History No [...] [1] Hospital Course He ruled out for AR. Chest x-ray was normal. Stress test was [...] Vascular US carotid artery duplex bilateral Michelle Banuelos NP [address] [place] [phone] Referral ID Status Reason Start Date Expiration Date V isits Requested Visits Authorized [id number] Incomplete 03/23/2024 09/19/2024 1 1 Specialty Diagnoses / Procedures Referred By Sukhi mendez Referred To Contact Neurology Diagnoses Loss of consciousness (CMS/HCC) Procedures Home EEG 36-84 Hours Michelle Banuelos NP [address] [place] [phone] Referral ID Status Reason Start Date Expiration Date V isits Requested Visits Authorized [id number] Pending Review 02/24/2024 08/22/2024 1 1 Additional Source Comments (unrecognized sect ion and content) No Status Records FoundNo Status Records FoundNo Status Records FoundNo Status Records FoundNo Status Records Found INFORMATION SOURCE (unrecogn ized section and content) DATE CREATED AUTHOR 12/25/2017 [facility] DATE CREATED AUTHOR AUTHOR'S ORGANIZ ATION 04/15/2019 [facility] DATE CREATED AUTHOR AUTHOR'S ORGANIZ ATION 06/18/2024 [facility] EPIC DATE CREATED AUTHOR AUTHOR'S ORGANIZ ATION 07/06/2024 [facility] DATE CREATED AUTHOR AUTHOR'S ORGANIZ ATION 08/27/2024 [facility] Care Teams (unrecognized sec tion and content) [...] May 05, 2024 End: May 05, 2024 Combined Rail Operator Relationship Specialty Start Date End Date Emerald Jean NP [address] [place] [address] Referring Physician Family Medicine 12/23/23 Combined Rail Operator Relationship Specialty Start Date End Date Emerald Jean NP [address] [place] [address] Referring Physician Family Medicine 12/23/23 Combined Rail Operator Relationship Specialty Start Date End Date Emerald Jean NP [address] [place] [address] Referring Physician Family Medicine 12/23/23 Combined Rail Operator Relationship Specialty Start Date End Date Emerald Jean PORTAL ADMINISTRATOR [address] [place] [address] Referring Physician Family Medicine 12/23/23 Goals (unrecognized [...] BE BASED ON THE PRIMARY CLINICAL RECORDS. [employer] provides no warranty or guarantee of the accuracy or completeness of information in this document.
[2024-09-07 08:51] LABS: Alanine Aminotransferase 22 U/L (16-63); Aspartate Amino Transferase 17 U/L (15-37); Chol HDL Ratio 4.3; Cholesterol 163 mg/dL (<=200); HDL Cholesterol 38 mg/dL (40-60); Triglycerides 49 mg/dL (<=150); VLDL CHOLESTEROL 9.8 mg/dL
== END 2024-09-07 07:53 | disposition home or self-care (01) ==
LOC: LAB 07:53
PROVIDERS: Visit Provider Internal Medicine Cardiovascular Disease
DX: E78.5 Hyperlipidemia, unspecified (principal)
CPT/HCPCS: 36415; 80061; 84450; 84460

== ENCOUNTER 2024-12-07 08:15 | Outpatient (OUT) | payer OTHER, SELFPAY ==
--- OUTSIDE RECORDS SUMMARY | 2016-08-16 11:30 | XMS_ITS | Encounter Summary ---
Author Organization [facility] Address [address] [place] [address] Care Team Providers Care Commercial Litigation Associate Name Role Phone Unavailable Primary Care Provider Unavailabl e Encounter Details Date Type Department Care Team (Late st Contact Info) Description 08/16/2016 10:30 AM EST Hospital Encounter [facility] [address] [place] [phone] Jordin Mclean MD [address] [place] [address] Linette Florentino, PT Social History Tobacco Use Types Packs/Day Years Used Date Smoking Tobacco: Every Day Cigarettes Smokeless Tobacco: Never Alcohol Use Standard Drinks/Week Comments Yes 6 (1 standard drink = 0.6 oz pur e alcohol) Sex and Gender Information Value Date Recorded Sex Assigned at Not on file Legal Sex Male 5:49 PM EST Gender Identity Not on file Sexual Orientation Not on file documented as of this encounter Progress Notes * Linette Florentino, PT - 08/16/2016 11:32 AM EST [facility] Outpatient Physical Therapy Daily Note Patient: Ahsan Rivas : 1965 Referring Practitioner: Jordin Mclean MD Date: 08/16/2016 Referring Practitioner: Jordin Mclean MD Diagnosis: labral tear of long head of left biceps tendon, S46.11 Treatment Diagnosis: left shoulder pain Onset Date: 07/05/16 PT Insurance Information: [facility] through 09/06/16 Total # of Visits Approved: 12 Per Physician Order Total # of Visits to Date: 5 No Show: 0 Canceled Appointment: 0 Pre-Treatment Pain: 4/10 Subjective: Pain today rates about 4/10 in left shoulder. Doing exercises at home. ROM is slowly progressing. Exercises/Modalities/Manual: See DocFlow Sheet Assessment Assessment: Pt with 85 degrees abd in scapular plane, 100 flexion and 26 degrees ER passively this date. ROM much improved since time of evaluation. Will continue to progress as pt tolerates. Patient Education Patient Education: Importance of continued home program Pt verbalized/demonstrated good understanding: [x] Yes [] No, pt required further clarification. Plan Plan: Continue with current plan Goals (Total # of Visits to Date: 5) Short Term Goals - Time Frame for Short term goals: 3 weeks Short term goal 1: Pt to be instructed in home program. - met Short term goal 2: Pt to achieve 45 degrees of passive elevation left UE to assist with dressing. -met Short term goal 3: Pt to achieve neutral ER left shoulder passively to assist with ADL's. 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 terminal press operator goal 2: Pt to achieve 145 degrees of active elevation left UE to assist with overhead reaching. residential goal 3: Pt to demonstrate 4+/5 strength of left shoulder to assist with functional tasks. residential goal 4: Pt to actively IR left shoulder to L3 region to assist with dressing. Post Treatment Pain: 4/10 Time Calculation Start Time: 1039 Stop Time: 1116 Time Calculation: 37 Linette Florentino PT, DPT Date: 08/16/2016 documented in this encounter Plan of Treatment Not on file documented as of this encounter Visit Diagnoses Not on filedocumented in this encounter
--- OUTSIDE RECORDS SUMMARY | 2016-08-23 12:15 | XMS_ITS | Encounter Summary ---
Author Organization [facility] Address [address] [place] [address] Care Team Providers Care Metallic Yarn Slitting Machine Operator Name Role Phone Unavailable Primary Care Provider Unavailabl e Encounter Details Date Type Department Care Team (Late st Contact Info) Description 08/23/2016 11:15 AM EST Hospital Encounter [facility] Physical Therapy [address] [place] [phone] Jordin Mclean MD [address] [place] [address] Linette Florentino, PT Social History Tobacco Use [...] Progress Notes * Linette Florentino, PT - 08/23/2016 12:09 PM EST [facility] Outpatient Physical Therapy Daily Note Patient: Ahsan Rivas : 1965 Referring Practitioner: Jordin Mclean MD Date: 08/23/2016 Referring Practitioner: Jordin Mclean MD Diagnosis: labral tear of long head of left biceps tendon, S46.11 Treatment Diagnosis: left shoulder pain Onset Date: 07/05/16 PT Insurance Information: [facility] through 09/06/16 Total # of Visits Approved: 12 Per Physician Order Total # of Visits to Date: 8 No Show: 0 Canceled Appointment: 0 Pre-Treatment Pain: 4/10 Subjective: Will see again September 23. Pain today rates about 4/10 in left shoulder. Exercises/Modalities/Manual: See DocFlow Sheet Assessment Assessment: Limited PROM of left shoulder this date due to pt garding and pain. Left shoulder flexion was limited to less than 90 degrees passively; was able to achieve 30 degrees of ER at approx. 45degrees abd. Will progress as pt tolerates. Patient Education Patient Education: HEP compliance. Pt verbalized/demonstrated good understanding: [x] Yes [] No, pt required further clarification. Plan Plan: Continue with current plan Goals (Total # of Visits to Date: 8) Short Term Goals - Time Frame for Short term goals: 3 weeks Short term goal 1: Pt to be instructed in home program. - met []Met []Partially met []Not met Short term goal 2: Pt to achieve 45 degrees of passive elevation left UE to assist with dressing. -met []Met []Partially met []Not met Short term goal 3: Pt to achieve neutral ER left shoulder passively to assist with ADL's. - met []Met []Partially met []Not met []Met []Partially met []Not met [facility] Goals - Time Frame for halfway goals : 6 weeks engineer second assistant goal 1: Pt to report independence and compliance with home program. []Met []Partially met []Not met halfway goal 2: Pt to achieve 145 degrees of active elevation left UE to assist with overhead reaching. []Met []Partially met []Not met halfway goal 3: Pt to demonstrate 4+/5 strength of left shoulder to assist with functional tasks.[]Met []Partially met []Not met engineer second assistant goal 4: Pt to actively IR left shoulder to L3 region to assist with dressing. []Met []Partially met []Not met []Met []Partially met []Not met Post Treatment Pain: 5/10 Time Calculation Start Time: 1119 Stop Time: 1202 Time Calculation: 43 Linette Florentino PT, DPT Date: 08/23/2016 documented in this encounter Plan of Treatment Not on file documented as of this encounter Visit Diagnoses Not on filedocumented in this encounter
--- OUTSIDE RECORDS SUMMARY | 2016-08-28 14:30 | XMS_ITS | Encounter Summary ---
Author Organization [facility] Address [address] [place] [address] Care Team Providers Care Pediatric Cardiologist Name Role Phone Unavailable Primary Care Provider Unavailabl e Encounter Details Date Type Department Care Team (Late st Contact Info) Description 08/28/2016 1:30 PM EST Hospital Encounter [facility] Physical Therapy [address] [place] [phone] Jordin Mclean MD [address] [place] [address] Linette Florentino, PT Social History Tobacco Use [...] Progress Notes * Linette Florentino, PT - 08/28/2016 2:14 PM EST [facility] Outpatient Physical Therapy Daily Note Patient: Ahsan Rivas : 1965 Referring Practitioner: Jordin Mclean MD Date: 08/28/2016 Referring Practitioner: Jordin Mclean MD Diagnosis: labral tear of long head of left biceps tendon, S46.11 Treatment Diagnosis: left shoulder pain Onset Date: 07/05/16 PT Insurance Information: [facility] through 09/06/16 Total # of Visits Approved: 12 Per Physician Order Total # of Visits to Date: 9 No Show: 0 Canceled Appointment: 0 Pre-Treatment Pain: 3/10 Subjective: Pain today rates about 3/10 in left shoulder. States he has been taking it easy at home. Exercises/Modalities/Manual: See DocFlow Sheet Assessment Assessment: Pt with 117 degrees of passive left shoulder flexion this date. Continues with guardingduring PROM. Tolerated new exercises well. Patient Education Patient Education: New exercises Pt verbalized/demonstrated good understanding: [x] Yes [] No, pt required further clarification. 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 []Met []Partially met []Not met [facility] goal 2: Pt to achieve 145 degrees of active elevation left UE to assist with overhead reaching. []Met []Partially met []Not met [facility] goal 3: Pt to demonstrate 4+/5 strength of left shoulder to assist with functional tasks.[]Met []Partially met []Not met terminal block assembler goal 4: Pt to actively IR left shoulder to L3 region to assist with dressing. []Met []Partially met []Not met []Met []Partially met []Not met Post Treatment Pain: 4/10 Time Calculation Start Time: 1330 Stop Time: 1413 Time Calculation: 43 Linette Florentino PT, DPT Date: 08/28/2016 documented in this encounter Plan of Treatment Not on file documented as of this encounter Visit Diagnoses Not on filedocumented in this encounter
--- OUTSIDE RECORDS SUMMARY | 2024-03-30 09:15 | XMS_ITS ---
Author Organization [facility] Address [address] [place], [place] [id number] Care Team Providers Care Camera Control Operator Name Role Phone Emerald Jean Primary Care Provider REASON FOR VISIT 3 month htn and syncope Social History Sex Assigned At : Social History Observation Description Sex Assigned At Male Encounters Encounter Location Date Provider Diagnosis [address] [id number] 03/30/2024 Emerald Jean Plan Of Treatment Next Appt Details Provider Name:Emerald Jean, 04/14/2025 08:45:00 AM, [address], [place], [id number], Progress Notes * Ahsan RIVSADOB:1965 (59 yo M)Acc No.[id number]:03/30/2024 Medical Note Patient: Ahsan BRISCOE Provider: Christopher Jean :1965 A ge:58 Y S ex:Male Date:03/30/2024 Address:[address] [place] [address] [address], [place], [id number] Subjective: * Chief Complaints: * 1 . 3 month htn and syncope. * Medical History: Objective: * Vitals: Assessment: Plan: * Treatment: * Billing Information: * Visit Code: * Procedure Codes: * Electronic signature of EDWIN Musa on 12/07/2024 at 08:19 AM EDT Sign off status: Pending * Provider: Christopher Jean Date: 0 03/30/2024 Generated for Fei kowalski/Refugio/Alexander on: 0 12/07/2024 08:19 AM EDT
--- OUTSIDE RECORDS SUMMARY | 2024-09-07 04:33 | XMS_ITS ---
Author Organization [facility] in [place] Address [address] [place] [address] Care Team Providers Care Supervisor Grower Name Role Phone Miranda JERONIMOP, Emerald Primary Care Provider Clay Garvey Unavailable [phone] REASON FOR VISIT PAP Set Up Encounters Encounter Location Date Provider Diagnosis [facility] [place] [address] [place] [address] 09/07/2024 Clay Jostin Plan Of Treatment Next Appt Details Provider Name:Clayjeannette Frankel, 06/07/2025 07:30:00 AM, [address] [place], [address], Progress Notes * Ahsan RIVASDOB:1965 (59 yo M)Acc No.[id number]:09/07/2024 Patient: Ahsan BRISCOE :1965 A ge:59 Y S ex:Male Address:[address] [place] [address] [address] , [place] [address] * Addendum: * true * Date: Generated for Fei kowalski/Refugio/eTransmitting on: 0 12/07/2024 08:18 AM EDT
--- OUTSIDE RECORDS SUMMARY | 2024-09-16 09:22 | XMS_ITS ---
Author Organization [facility] in [place] Address [address] [place] [address] Care Team Providers Care Security Solutions Engineer Name Role Phone Miranda JERONIMOP, Emerald Primary Care Provider Clay Garvey Unavailable [phone] REASON FOR VISIT PAP Set Up Encounters Encounter Location Date Provider Diagnosis Pulmonary Medicine [place] [address] [place] [address] 09/16/2024 Clayjeannette Frankel Plan Of Treatment Next Appt Details Provider Name:Clayjeannette Frankel, 06/07/2025 07:30:00 AM, [address] [place], [address], Progress Notes * MORALESAhsan BRADENDOB:1965 (59 yo M)Acc No.[id number]:09/16/2024 Patient: Ahsan BRISCOE :1965 A ge:59 Y S ex:Male Address:[address] [place] [address] [address] , [place] [address] * true * Date: Generated for Fei kowalski/Refugio/eTransmitting on: 0 12/07/2024 08:19 AM EDT
--- OUTSIDE RECORDS SUMMARY | 2024-12-07 03:30 | XMS_ITS ---
Author Organization [facility] in [place] Address [address] [place] [address] Care Team Providers Care Reconnaissance Crewmember Name Role Phone Miranda PINEDA, [place] Primary Care Provider Addie Clay Kemp Unavailable [phone] Allergies No Known Allergies REASON FOR VISIT 3m F/U - ESTEPHANIE (PAP compliance) Medications Medication SIG (Take, Route, Frequency, Duration) Notes Start Date End Date Status amLODIPine Besy-Benazepril HCl 10-20 MG TAKE 1 CAPSULE BY MOUTH IN THE MORNING Oral for 30 Days Active Albuterol Sulfate HFA 108 (90 Base) MCG/ACT 2 puffs as needed for SOB Inhalation every 4 hrs for 30 days Active Arnuity Ellipta 100 MCG/ACT 1 puff Inhalation Once a day for 30 days Rinse after use 12/07/2024 Active Metoprolol Succinate ER 50 MG TAKE 1 TABLET BY MOUTH ONCE DAILY DIRECTED DO NOT CRUSH OR CHEW. Oral for 90 Days Active Anoro Ellipta 62.5-25 MCG/ACT 1 puff Inhalation Once a day for 30 days Active Social History Tobacco Use: Social History Observation Description Date Details (start date - stop date) Current Smoker NA - NA Tobacco Control (Standard) Question Answer Notes Tobacco use: Current every day smoker Additional Findings: Tobacco user Moderate cigar ette smoker (10-19 cigs/day) Vital Signs Weight 173.0 lbs 12/07/2024 Height 68 in 12/07/2024 Blood pressure systolic 133 mm Hg 12/08/19 25 Blood pressure diastolic 78 mm Hg 025 Temperature 96.8 degrees Fahrenheit 12/08/19 25 Heart Rate 60 /min 12/07/2024 Respiratory Rate 16 /min 12/07/2024 BMI 26.3 kg/m2 12/07/2024 Oximetry 97 % 12/07/2024 Encounters Encounter Location Date Provider Diagnosis [facility] [place] [address] [place] [address] 12/07/2024 Clay Floyd COPD (chronic obstructive pulmonary disease) J44.9 ; AAT (jrjdt-3-jryatiimoqn) deficiency E88.01 ; ESTEPHANIE (obstructive sleep apnea) G47.33 ; Cigarette nicotine dependence with nicotine-induced disorder F17.219 ; Contact with and (suspected) exposure to asbestos Z77.090 and Encounter for screening for malignant neoplasm of respiratory organs Z12.2 Assessments Encounter Date Diagnosis (ICD Code) Assessment Notes Treatment Notes Treatment Clinical Notes Section Notes 12/07/2024 COPD (chronic obstructive pulmonary disease) (ICD-10 - J44.9) Prior treatment: Anoro > Stiolto (not as effective, increased dry mouth) Patient is doing much better on Anoro than Stiolto, with fewer symptoms and decreased dry mouth. Albuterol use has decreased as well, but it is winter and he is not as active. He states he wants to remain on Anoro for now. Reviewed AAT positive for MZ. Typically does not cause pulmonary disease, but as he continues to smoke, there can be a risk of worsening COPD/emphysema. He was counseled on smoking cessation. Will need periodic PFT to monitor for any worsening function. F/U 3 months for PAP evaluation. 12/07/2024 AAT (ptald-8-fxdgvae psin) deficiency (ICD-10 - E88.01) AAT positive for MZ genotype, but level is good @ 140. Discussed AAT deficiency. Even though level is okay, smoking is like fanning the fire and can increase the risk of developing emphysema. Roll for augmentation therapy is debatable with MZ genotype, and with a higher level - and continued smoking - it is unlikely the treatment would be covered. He was counseled on smoking cessation and will need periodic PFT to document for any precipitous decline. 12/07/2024 ESTEPHANIE (obstructive sleep apnea) (ICD-10 - G47.33) Sleep testing was ordered by [facility] Cardiology. Rzte-cl-hjwq encounter performed with the patient to document continued need for PAP therapy. -Current DME: [facility] -PS02/18/2024; Initial AHI: 32 (3% rule), 21.4 (4%) rule -Last PAP titration: 03/31/2024 @ CPAP [id number] -Patient has not received any CPAP. He likewise does not know who will manage it. As I manage ESTEPHANIE, I stated I can assist the patient - he voiced he would like that. -Explained minimum compliance is >4 hours/night for at least 70% of all nights. Of course, he should not aim for the bare minimum. -He will need to be seen back within 30-90 days for PAP compliance documentation. 12/07/2024 Cigarette nicotine dependence with nicotine-induced disorder (ICD-10 - F17.219) Discussed smoking cessation yet again. He remains at 1/2ppd. He states he is trying to cut down. Explained now that he has AAT-MZ, it is more important now than ever to stop smoking. He voiced it is difficult. He was encouraged to continue to try to quit. LDCT due 02/2025. 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 Discussed mesothelioma can manifest 20 to 30 years after asbestos exposure. LDCT will help screen for any pleural thickening or other concerns of asbestos-related lung disease. 12/07/2024 Encounter for screening for malignant neoplasm of respiratory organs (ICD-10 - Z12.2) 12/07/2024 Other Plan Of Treatment Medication Medication Name Sig Start Date Stop Date Notes Albuterol Sulfate HFA 108 (9 0 Base) MCG/ACT 2 puffs as needed for SOB Inhalation every 4 hrs for 30 days Arnuity Ellipta 100 MCG/ACT 1 puff Inhal ation Once a day for 30 days 12/07/2024 Anoro Ellipta 62.5-25 MCG/ACT 1 puff Inh alation Once a day for 30 days Treatment Notes Assessment Notes COPD (chronic obstructive pu lmonary disease) Prior treatment: Anoro > Stiolto (not as effective, increased dry mouth) Patient is doing much better on Anoro than Stiolto, with fewer symptoms and decreased dry mouth. Albuterol use has decreased as well, but it is winter and he is not as active. He states he wants to remain on Anoro for now. Reviewed AAT positive for MZ. Typically does not cause pulmonary disease, but as he continues to smoke, there can be a risk of worsening COPD/emphysema. He was counseled on smoking cessation. Will need periodic PFT to monitor for any worsening function. F/U 3 months for PAP evaluation. AAT (ffikg-7-mjsmoifvhul) deficiency AAT positive for MZ genotype, but level is good @ 140. Discussed AAT deficiency. Even though level is okay, smoking is like fanning the fire and can increase the risk of developing emphysema. Roll for augmentation therapy is debatable with MZ genotype, and with a higher level - and continued smoking - it is unlikely the treatment would be covered. He was counseled on smoking cessation and will need periodic PFT to document for any precipitous decline. ESTEPHANIE (obstructive sleep apnea) Sleep testing was ordered by [facility] Cardiology. Imna-qn-wfbo encounter performed with the patient to document continued need for PAP therapy. -Current DME: [facility] -PS02/18/2024; Initial AHI: 32 (3% rule), 21.4 (4%) rule -Last PAP titration: 03/31/2024 @ CPAP [id number] -Patient has not received any CPAP. He likewise does not know who will manage it. As I manage ESTEPHANIE, I stated I can assist the patient - he voiced he would like that. -Explained minimum compliance is >4 hours/night for at least 70% of all nights. Of course, he should not aim for the bare minimum. -He will need to be seen back within 30-90 days for PAP compliance documentation. Cigarette nicotine dependenc e with nicotine-induced disorder Discussed smoking cessation yet again. He remains at 1/2ppd. He states he is trying to cut down. Explained now that he has AAT-MZ, it is more important now than ever to stop smoking. He voiced it is difficult. He was encouraged to continue to try to quit. LDCT due 02/2025. 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 Discussed mesothelioma can manifest 20 to 30 years after asbestos exposure. LDCT will help screen for any pleural thickening or other concerns of asbestos-related lung disease. Future Test Test Name Order Date CT Chest Low Dose for Screening* 025 Next Appt Details Provider Name:Clay Floyd, 06/07/2025 07:30:00 AM, [address] [place], [address], Procedure Notes * Category Sub-Category Detail Notes PFT Data: 01/06/2024-FEV1/FV C: 70%-FEV1: 69%-FVC: 74%-BCA44-75%: 58%-Bronchodilator response: None-RV: 142%-T%-DLCO: 65% Alpha-1 Antitrypsin Screening Date: 06/01/2024 Genotype: MZ Confirmatory Date: 06/15/2024 Level: 140mg/dL Progress Notes * Ahsan RIVASDOB:1965 (59 yo M)Acc No.[id number]:12/07/2024 UNLOCKED PROGRESS NOTE Follow Up Patient: Ahsan BRISCOE Provider: Karissa Floyd DO :1965 A ge:59 Y S ex:Male Date:12/07/2024 Address:[address] [place] [address], [id number] Pcp:EDWIN Rice Check In:07:31 AM ESTCheck O ut:08:04 AM EST Subjective: * Chief Complaints: * 1 . 3m F/U - ESTEPHANIE (PAP compliance). * HPI: E pworth Sleepiness Scale: Patient states his breathing continues to be better with Anoro over Stiolto. Denies adverse effects. No exacerbations reported. Uses albuterol several times a week. He admits that his breathing could be a little better. Continues to smoke ~1/2 ppd. He got CPAP (21biP9D). He is not able to tolerate it. He has a hybrid oronasal mask.? He hates it - it easily dislodges from the nares. He has a moderate air leak (median 17.7L/min). He did not feel greatly refreshed upon awakening. Sleeping was worse as he was fighting with the mask. He claims he was not provided a choice on the type of mask he could get. He possibly could try using a full facial, but he just doesn't feel that he would tolerate any one. LDCT due end of February 2025. MA Intake Comments:. Baldwin Sleepiness Scale C tip of dozing while sitting and reading:?0 - Never C tip of dozing while watching TV: 3 - High Chance C tip of dozing while sitting in a public place: 0 - Never C tip of dozing as a passenger in a car for an hour without a break: 0 - Never C tip of dozing while lying down in the afternoon to rest: 0 - Never C tip of dozing while sitting and talking to someone: 0 - Never C tip of dozing while sitting quietly after lunch: 0 - Never C tip of dozing in a stopped car for a few minutes in traffic: 0 - Never T OTAL SCORE: 3 Patient presents for a follow-up for ESTEPHANIE. DME:[facility]. Patient is not wearing his PAP due to his mask. Patient is unable to tolerate the mask. Patient states he just gave up on it. Patient admits to smoking 1/2 PPD. Patient is under the care of [facility] Cardiology. * ROS: G eneral/Constitutional: Fever or sweats d enies. C hange of appetite d enies. C hills d enies. W eight Change d enies. H EENT: Dry mouth n ot as bad on Anoro compared to Stiolto. S ore throat d enies. O ral Ulcers d enies. P ost Nasal Drip D enies.?Congestion D enies. H oarseness D enies. C ardiovascular: Tachycardia d enies. E karen D enies. C hest pain d enies. P alpitations d enies. R espiratory: Pleurisy D enies. D yspnea i mproved. C ough i mproved with Anoro. H emoptysis d enies. W heezing d ecreased with Anoro. G astrointestinal: Acid Reflux/GERD/Heartburn d enies. D ysphagia d enies. M usculoskeletal: Arthralgias/joint pain D enies. S kin: Easy bruising d enies. R bentley d enies. ? N eurologic: Seizures d enies. T remor d enies. H ematology: Abnormal Bleeding d enies. P sychiatric: Anxiety d enies. * Medical History: C OPD (chronic obstructive pulmonary disease), Cigarette nicotine dependence with nicotine-induced disorder, AAT (itwfq-3-ttanajqehjg) deficiency, HTN (hypertension), ESTEPHANIE (obstructive sleep apnea), Fx left 3rd metatarsal bone 12/2022. * Surgical History: B ilateral rotator cuffs , left knee reconstruction , right hip, bone removed to reconstruct knee , tonsillectomy . * Hospitalization/Major Diagno stic Procedure: D enies Past Hospitalization. * Family History: F ather: COPD. M other: ovarian cancer. M aternal Grandmother: stroke, diagnosed with Unspecified heart disease. 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 D rugs/Alcohol: D rugs H ave you used drugs other than those for medical reasons in the past 12 months? N o D oes the Patient have a History of Drug Abuse in the Past? N o Caffeine I ntake: 1 -2 cups per day Coffee Do you drink alcohol?: Yes- 1-2 12.oz Beers per day/ 4-5 times per week/ Remotely Quit. Do you smoke marijuana?: Denies. * Medications: T aking Albuterol Sulfate HFA 108 (90 Base) MCG/ACT Aerosol Solution 2 puffs as needed for SOB Inhalation every 4 hrs , Taking amLODIPine Besy-Benazepril HCl 10-20 MG Capsule TAKE 1 CAPSULE BY MOUTH IN THE MORNING Oral , Taking Anoro Ellipta(Umeclidinium-Vilanterol) 62.5-25 MCG/ACT Aerosol Powder Breath Activated 1 puff Inhalation Once a day , Taking Metoprolol Succinate ER 50 MG Tablet Extended Release 24 Hour TAKE 1 TABLET BY MOUTH ONCE DAILY DIRECTED DO NOT CRUSH OR CHEW. Oral , Medication List reviewed and reconciled with the patient * Allergies: N .K.D.A. Objective: * Vitals: W t:173.0lbs, Ht: 68 in, BP:sittin/78mm Hg, Temp:Forehead:96.8F, HR:60/min, RR:16/min, BMI:26.3Index, Oxygen sat %:Room Air:97%, Ht-cm: 172.72 cm, Wt-k.47 kg. * Examination: E xam: GENERAL APPEARANCE: A ppears stated age. Skin N ormal. Mouth P ink and moist. Oropharynx M allampati Class III. Trachea M idline. Chest I ncreased A-P Diameter. Respiratory Normal M ovements, E ffort N ormal. Auscultation B reath sounds diminished and clear with ambient breathing. Coarse with forced exhalation. Cardiac R egular rate and rhythm. Gastrointestinal N ormal. Vascular N o edema. Musculoskeletal N ormal posture. Neurological F ocal, intact. Psychiatric A lert and oriented x3. Mentation/Cognition N ormal. Assessment: * Assessment: 1. C OPD (chronic obstructive pulmonary disease) - J44.9 (Primary) 2 . A AT (jmaod-7-ndheaylcmzl) deficiency - E88.01 3 . O SA (obstructive sleep apnea) - G47.33 4 . C igarette nicotine dependence with nicotine-induced disorder - F17.219 5 . C ontact with and (suspected) exposure to asbestos - Z77.090 ?6. E ncounter for screening for malignant neoplasm of respiratory organs - Z12.2 Plan: * Treatment: 2. A AT (pzywr-0-kplkmrgymyd) deficiency Notes: AAT positive for MZ genotype, but level is good @ 140. Discussed AAT deficiency. Even though level is okay, smoking is like fanning the fire and can increase the risk of developing emphysema. Roll for augmentation therapy is debatable with MZ genotype, and with a higher level - and continued smoking - it is unlikely the treatment would be covered. He was counseled on smoking cessation and will need periodic PFT to document for any precipitous decline. 3. O SA (obstructive sleep apnea) Notes: Sleep testing was ordered by [facility] Cardiology. Rdug-qx-xlri encounter performed with the patient to document continued need for PAP therapy. -Current DME: [facility] -PS02/18/2024; Initial AHI: 32 (3% rule), 21.4 (4%) rule -Last PAP titration: 03/31/2024 @ CPAP [id number] -Patient has not received any CPAP. He likewise does not know who will manage it. As I manage ESTEPHANIE, I stated I can assist the patient - he voiced he would like that. -Explained minimum compliance is >4 hours/night for at least 70% of all nights. Of course, he should not aim for the bare minimum. -He will need to be seen back within 30-90 days for PAP compliance documentation. 4. C igarette nicotine dependence with nicotine-induced disorder I maging: CT Chest Low Dose for Screening* (Ordered for 03/06/2025) Notes: Discussed smoking cessation yet again. He remains at 1/2ppd. He states he is trying to cut down. Explained now that he has AAT-MZ, it is more important now than ever to stop smoking. He voiced it is difficult. He was encouraged to continue to try to quit. LDCT due 02/2025. 5. 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 Discussed mesothelioma can manifest 20 to 30 years after asbestos exposure. LDCT will help screen for any pleural thickening or other concerns of asbestos-related lung disease. 6. E ncounter for screening for malignant neoplasm of respiratory organs I maging: CT Chest Low Dose for Screening* (Ordered for 03/06/2025) * Procedures: A lpha-1 Antitrypsin: Screening Date: 08/01/2023. Genotype: M Z. Confirmatory Date: 08/16/2023. Level: 1 40mg/dL. P FT: Data: 01/06/2024 -FEV1/FVC: 70% -FEV1: 69% -FVC: 74% -OIW93-35%: 58% -Bronchodilator response: None -RV: 142% -T% -DLCO: 65%. * Preventive Medicine: COVID Vaccination: H as patient had COVID Vaccination? COVID Vaccination N o Patient Refused Immunization Status: P neumovacc P t Refused. I nfluenza P t Refused. Screenings/Counseling: F ALL RISK SCREENING Fall Risk Assessment: N o falls in the past year Are you afraid of falling? N o T OBACCO ACTION PLAN Patient counselled on the dangers of tobacco use and urged to quit. 0 11/09/2024 Cessation counseling provided 0 11/09/2024 F SANJIV EXCLUSION Reason: P atient Reason refused/declined Type of Patient Reason: D rug declined by patient B FL ACTION PLAN Above Normal BMI Follow-up D ietary management education, guidance, and counseling * * Electronic signature of Indu Floyd DO on 12/07/2024 at 08:19 AM EDT Sign off status: Pending Visit Status: C HK (Check Out) * Provider: Karissa Floyd DO Date: 0 12/07/2024 Generated for Fei kowalski/Refugio/Deborahitting on: 0 12/07/2024 08:19 AM EDT History and Physical Notes * HPI (History of Present Illness) Category Sub-Category Detail Notes Category Not es Baldwin Sleepiness Scale Baldwin Sleepiness Scale Chance of dozing while sitting and reading:: 0 - Never Patient presents for a follow-up for ESTEPHANIE. DME:[facility]. Patient is not wearing his PAP due to his mask. Patient is unable to tolerate the mask. Patient states he just gave up on it. Patient admits to smoking 1/2 PPD. Patient is under the care of [facility] Cardiology. Chance of dozing while watching TV:: 3 - High Chance Chance of dozing while sitting in a publ ic place:: 0 - Never Chance of dozing as a passen jill in a car for an hour without a break:: 0 - Never Chance of dozing while lying down in the afternoon to rest:: 0 - Never Chance of dozing while sitting and talki ng to someone:: 0 - Never Chance of dozing while sitting quietly a fter lunch:: 0 - Never Chance of dozing in a stopped car for a few minutes in traffic:: 0 - Never TOTAL SCORE:: 3 Examination Category Sub-Category Detail Notes Category Not es Exam GENERAL APPEARANCE: Appears stated age Skin Normal Mouth [place] and moist Trachea Midline Chest Increased A-P Diamet er Respiratory Normal Movements, Ef fort Normal Auscultation Breath sounds dimini shed and clear with ambient breathing. Coarse with forced exhalation Cardiac Regular rate and rhy thm Gastrointestinal Normal Vascular No edema Musculoskeletal Normal posture Neurological Focal, intact Psychiatric Alert and oriented x 3 Mentation/Cognition Normal Oropharynx Mallampati Class III
--- OUTSIDE RECORDS SUMMARY | 2024-12-07 08:18 | XMS_ITS | Patient Health Record ---
Author Organization [facility] v[facility] Address [address] [place], [place] [id number] Care Team Providers Care Code Number Stamper Name Role Phone Emerald Jean Primary Care Provider ShoaibKikeMeaghan Unavailable [phone] Allergies Allergen (clinical drug ingredient) Drug/Non Drug Allergy documented on EMR Reaction Allergy Type Onset Date Status Bee Sting Unknown Allergy Active Results Component Value Reference Range Notes Hemoglobin Reviewed date:01/08/2024 03:43:54 PM Interpretation: Performing Lab: Notes/Report: , [facility] Hemoglobin 15.6 14.0-18.0 g/dL Performing Lab: see note ML - [facility] Pulmonary Function Test Reviewed date:01/15/2024 01:06:20 PM Interpretation: Performing Lab: Notes/Report: Reason For Referral Reason eval and treat Diagnosis 1 Elevated liver enzym es (R74.8) Diagnosis 2 Hepatitis B antibody positive (R89.4) Referral Organization [place] Referring Provider First Name Emerald Referring Provider Last Name Miranda Referring Provider Speciality Nurse Prac titioner Ref[facility] Referred Provider Specialty Gastroentero logy General Notes Letty Urban 11:38:45 AM >{{TOFIRSTNAME}} This is [facility] following up on multiple outstanding orders and/or referrals that were ordered by your provider. Please call our office at so we can _update our records., Letty Urban 01/05/2024 09:48:38 AM >No response from patient, closing referral per protocol. Referral Priority Routine Medications Medication SIG (Take, Route, Frequency, Duration) Notes Start Date End Date Status Albuterol Sulfate HFA 108 (90 Base) MCG/ACT INHALE 2 PUFFS BY MOUTH EVERY 4 HOURS NEEDED FOR SHORTNESS OF BREATH Inhalation for 17 Days Active Anoro Ellipta 62.5-25 MCG/ACT INHALE 1 PUFF BY MOUTH ONCE DAILY Inhalation for 30 Days Active Atorvastatin Calcium 20 MG Oral for 90 Days Active amLODIPine Besy-Benazepril HCl 10-20 MG TAKE 1 CAPSULE BY MOUTH IN THE MORNING Oral for 30 Days Active Metoprolol Succinate ER 25 MG 1 tablet Oral Once a day Act gabino Social History Tobacco Use: Social History Observation Description Date Details (start date - stop date) Current Smoker 07/07/1977 - NA Sex Assigned At : Social History Observation Description Sex Assigned At Male Tobacco Use/Smoking Question Answer Notes Tobacco use: current smoker patient enter ed data Are you interested in quitting? Not ready to tito t patient entered data How many cigarettes a day do you smoke? 11-20 patient entered data How soon after you wake up d o you smoke your first cigarette? 6-30 minutes patient entered data How often do you smoke cigarettes? every day patient entered data When did you start smoking? 07/07/1977 p atient entered data CAGE-AID Questionnaire (2018 Edition) Question Answer Notes Have you ever felt that you ought to cut down on your drinking or drug use? No patient entered data Have people annoyed you by criticizing your drinking or drug use? No patient entered data Have you ever felt bad or gu ilty about your drinking or drug use? No patient entered da ta Have you ever had a drink or used drugs first thing in the morning to steady your nerves or to get rid of a hangover? Yes patient entered data CAGE-AID Score 1 Interpretation Possible Subtance Abuse PRAPARE Question Answer Notes Date Completed/Updated: 01/01/2024 leanne nt entered data What is your current housing situation? I have housing patient entered data Are you worried about losing your housing? No patient entered data What is the highest level of school that you have finished? 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 Check all that apply Utilities,Phone Has lack of transportation k ept you from medical appointments, meetings, work or from getting things needed for daily living? No How often do you see or talk to people that you care about and feel close to? (For example: talking to friends on the phone, visiting friends or family, going to mormon or club meetings) 1 or 2 times a week patient entered data How stressed are you? Stress is when someone feels tense, nervous, anxious, or can't sleep at night because their mind is troubled Somewhat patient entered data In the past year have you sp ent more than 2 nights in a row in a residential, fdc, nursing home center, or juvenile correctional facility? No patient entered data Are you a refugee? No patient en tered data What country are you from? [place] entered data Do you feel physically and emotionally safe where you currently live? Yes patient entered data In the past year, have you b een afraid of your partner or ex-partner? No patient entered data PRAPARE Score: 8 Problems Problem Type SNOMED Code ICD Code Onset Dates Problem Status W/U Status Risk Notes Problem Tobacco user (295327422) Cigarette nicotine dependence without complication (F17.210) Active confirmed Problem 73362293 Chronic obstructive pulmonary disease, unspecified COPD type (J44.9) Active confirmed Problem Hypertension (34413206) Hypertension (I10) Active confirmed Problem Hepatitis B core antibody detected (finding) (241218614) Hepatitis B antibody positive (R89.4) Active confirmed Vital Signs Heart Rate 58 /min 10/12/2024 Aileen Urban 10/12/2024 09:42:43 AM EDT > Temperature 97.7 degrees Fahrenheit 10/12/2024 Letty Thomas 10/12/2024 09:42:43 AM EDT > Respiratory Rate 18 /min 10/12/2024 Evangelina Urban [email or web address] 10/12/2024 09:42:43 AM EDT > Blood pressure diastolic 81 mm Hg 10/12/2024 Letty Prescott 10/12/2024 09:42:43 AM EDT > Oximetry 98 % 10/12/2024 Aileen Urban 10/12/2024 09:42:43 AM EDT > Height-cm 172.72 cm 10/12/2024 Aileen Urban 10/12/2024 09:42:43 AM EDT > Weight-kg 82.37 kg 10/12/2024 Aileen Urban 10/12/2024 09:42:43 AM EDT > Height 68 in 10/12/2024 Aileen Urban 10/12/2024 09:42:43 AM EDT > Blood pressure systolic 136 mm Hg 10/12/2024 Letty Thomas 10/12/2024 09:42:43 AM EDT > Weight 181.6 lbs 10/12/2024 Aileen Urban 10/12/2024 09:42:43 AM EDT > BMI 27.61 kg/m2 10/12/2024 Aileen Urban 10/12/2024 09:42:43 AM EDT > Encounters Encounter Location Date Provider Diagnosis [place] [address] [place] [address] 01/01/2024 Emerald Jean Shortness of breath R06.02 and Hypertension [address] [place], [place] [id number] 05/03/2024 Meaghan Shoaib Hypertension I10 a nd Syncope R[address] [place], [place] [id number] 10/12/2024 Emerald Jean Encounter for well ness examination Z00.00 ; Screening for cardiovascular condition Z13.6 ; Exercise counseling Z71.82 ; Nutritional counseling Z71.3 ; Screening for lung cancer Z12.2 ; Cigarette nicotine dependence without complication F17.210 ; Colon cancer screening declined Z53.20 ; Screening for prostate cancer Z12.5 and BMI 27.0-27.9,adult Z68.27 [place] [address] [place] [address] 12/08/2023 Emerald Jean Hepatitis B antibody positive R89.4 and Elevated liver enzymes R74.8 Assessments Encounter Date Diagnosis (ICD Code) Assessment Notes Treatment Notes Treatment Clinical Notes Section Notes 12/08/2023 Elevated liver enzymes (ICD-10 - R74.8) 12/08/2023 Hepatitis B antibody positive (ICD-10 - R89.4) 01/01/2024 Shortness of breath (ICD-10 - R06.02) 01/01/2024 Hypertension (ICD-10 - I10) 05/03/2024 Syncope (ICD-10 - R55) Improved with some intermittent episode. Follows with Neurology, has appt in Jul. 05/03/2024 Hypertension (ICD-10 - I10) Bp well controlled. Continue current medications. Has follow up appt with dish person in Jun who mainly manages his BP. 10/12/2024 Encounter for wellness examination (ICD-10 - Z00.00) The patient comes in today to complete yearly wellness exam with this provider. Blood work that is ordered is explained to the patient as to what we would be screening for and what the blood work specifically looks at. All blood work will be reviewed as it is resulted and then corresponded to the patient either by phone, during a visit, or both. 10/12/2024 Screening for cardiovascular condition (ICD-10 - Z13.6) Based on this patients' elevated BMI, it is in the medical opinion of myself that they are screened for any cardiovascular condition that may detrimental to their health and wellbeing. This is to include a cholesterol panel to evaluate any concerning elevations of their lipids. Based on these findings a collaboration between the patient and this provider will be had either on the phone or at their next office visit to discuss the best course of treatment to help minimize the worsening of any cardiovascular conditions. 10/12/2024 Exercise counseling (ICD-10 - Z71.82) The patient was encouraged to increase exercise weekly to at least 3-4 times per week for 30-45 minutes for each session. Exercise may include but is not limited to walking, jogging, running, resistance training, water aerobics and strength training. Additionally, the patient was encouraged to inquire with their current insurance for any sponsored exercise regimens that would be covered their insurance as well. Benefits of increasing exercise regimens may include healthier lifestyle, stronger bone health, diminished aches and pain, and better metabolism. 10/12/2024 Nutritional counseling (ICD-10 - Z71.3) The patient was counseled on appropriate nutritional diet choices that should be made daily. It was encouraged that there should be 3 well balanced meals that occur daily with 1-2 healthy snacks that may occur in between those meals. Strong advisement was given to the patient to avoid all fast foods, fried foods, fatty foods, and greasy foods to alleviate any detrimental conditions in the future. The patient was encouraged to reach back out to the office if they find themselves unable to afford fresh fruits and vegetables for themselves or their family and be directed to local groups that would best help their dietary needs. 10/12/2024 Screening for lung cancer (ICD-10 - Z12.2) 10/12/2024 Cigarette nicotine dependence without complication (ICD-10 - F17.210) not ready to quit at this time 10/12/2024 Colon cancer screening declined (ICD-10 - Z53.20) 10/12/2024 Screening for prostate cancer (ICD-10 - Z12.5) Per the USPSTF, men aged 55-69 is selectively recommended after a provider - patient conversation. The patient and this provider had extensive conversation about the risks and benefits of prostate cancer and prostate screening. He is agreeable to have this completed via bloodwork today. 10/12/2024 BMI 27.0-27.9,adult (ICD-10 - Z68.27) 10/12/2024 Other Plan Of Treatment Pending Test Test Name Order Date CBC no Diff (Hemogram) 10/12/2024 Comprehensive Metabolic Panel 10/12/2024 Lipid Panel 10/12/2024 PSA Total+% Free 10/12/2024 Next Appt Details Provider Name:Emerald Jean, 04/14/2025 08:45:00 AM, [address] [place], [place], [id number], Insurance Providers Payer Name Payer Address Payer Phone Subscriber Number Group Number Insured Name Patient Relationship to Insured Coverage Start Date Coverage End Date [facility] [address] [place] [address] [phone] [id number] Ahsan Rivas Self - patient is the insured 2 Medicaid [employer] after [place] [address] [place] [address] [id number] Ahsan Rivas Self - patient is the insured 2 Medical (General) History Medical History History ICD Code HTN follows with cardiology Hepatitis B follow with gastroenterology COPD follows with community development coordinator syncopal following with neurologist Surgical History Surgery Date(Month/Year) rotator cuff repair- bilateral left knee surgery- removed bone from rig ht hip Hospitalization History Reason Date(Month/Year) see surgical hx
--- OUTSIDE RECORDS SUMMARY | 2024-12-07 08:19 | XMS_ITS | Clinical Summary ---
Author Organization [facility] Address [address] [place] [address] Care Team Providers Care Journeyman Carpenter Name Role Phone Unavailable Primary Care Provider Unavailabl e Allergies No known active allergies Medications ibuprofen (ADVIL;MOTRIN) 200 MG tablet Take 400 mg by mouth every 6 hours as needed for Pain Active ondansetron (ZOFRAN ODT) 4 MG disintegrating tablet Take 1 tablet by mouth every 8 hours as needed for Nausea or Vomiting 12 tablet 8 Active Social History Tobacco Use Types Packs/Day Years Used Date Smoking Tobacco: Every Day Cigarettes Smokeless Tobacco: Never Alcohol Use Standard Drinks/Week Comments Yes 6 (1 standard drink = 0.6 oz pur e alcohol) Sex and Gender Information Value Date Recorded Sex Assigned at Not on file Legal Sex Male 5:49 PM EST Gender Identity Not on file Sexual Orientation Not on file Last Filed Vital Signs Vital Sign Reading Time Taken Comments Blood Pressure 116/78 10/24/2017 12:51 PM EDT Pulse 77 10/24/2017 12:51 PM EDT Temperature 36.4 C (97.5 F) 10/24/2017 12:51 PM EDT Respiratory Rate 18 10/24/2017 12:51 PM EDT Oxygen Saturation 98% 10/24/2017 12:51 PM EDT Inhaled Oxygen Concentration - - Weight 74.8 kg (165 lb) 10/24/2017 10:03 AM EDT Height 177.8 cm (5' 10 ) 07/05/2016 5:54 AM EST Body Mass Index 23.68 07/05/2016 5:54 AM EST Plan of Treatment Not on file Insurance [facility]
--- OUTSIDE RECORDS SUMMARY | 2024-12-07 08:19 | XMS_ITS | Patient Health Record ---
Author Organization [facility] in [place] Address [address] [place] [address] Care Team Providers Care Stringed Instrument Assembler Name Role Phone Emerald Vallecillo Primary Care Provider [place] Annemarie Kemp Unavailable [phone] Allergies No Known Allergies Results Component Value Reference Range Notes [id number] SCREENIN G SWAB Reviewed date:06/14/2024 08:59:57 AM Interpretation: Performing Lab: Notes/Report: CT lung screening low-dose Reviewed date:03/02/2024 07:14:45 AM Interpretation: Performing Lab: Notes/Report: Source Facility: [place] [address] CT Scan Report Signed Patient: AHSAN RIVAS MR#: [id number] : 1965 Acct:[id number] Age/Sex: 58 / M ADM Date: 02/28/24 Loc: CT Attending Dr: Annemarie Rodney D.O. Ordering Physician: Annemarie Rodney D.O. Date of Service: 02/28/24 Procedure(s): CT lung screening low-dose Accession Number(s): [id number] cc: Emerald Jean ARTIST AGENT [place] [address] Patient Name: AHSAN RIVAS MRN: [id number] date: 1965 Sex: M Assigned Patient Location: CT Current Patient Location: Accession/Order Number: [id number] Exam Date: 02/28/2024 09:50 Report Date: 03/01/2024 07:23 At the request of: ANNEMARIE RODNEY Procedure: CT lung screening low-dose EXAMINATION: CT lung screening low-dose HISTORY: F17.219 Z12.2 COMPARISON: 11/22/2023 chest x-ray TECHNIQUE: Axial, Coronal, and Sagittal images were created without the administration of IV contrast material. Dose reduction techniques were achieved by using automated exposure control and/or adjustment of mA and/or kV according to patient size and/or use of iterative reconstruction technique. FINDINGS: LUNGS: Endotracheal bronchial tree. Minimal paraseptal emphysema right upper lobe. No significant pulmonary nodule or mass PLEURA: No mass, effusion, or pneumothorax. VASCULATURE: No abnormality. EVANS: No mass or pathologic adenopathy. MEDIASTINUM: No mass or pathologic adenopathy. CARDIAC: No enlargement or pericardial effusion CORONARY ARTERIES: Coronary calcifications are mild. AORTA: No aortic aneurysm. Mild calcific atherosclerosis CHEST WALL: No mass or axillary adenopathy BONES: No bone lesion or fracture. LIMITED ABDOMEN: No suspicious findings. Limited images of the upper abdomen. OTHER: Negative. CT/CT lung screening low-dose IMPRESSION: LUNG SCREENING: Lung-RADS Category 1 Negative. No nodules and definitely benign nodules. Continue annual screening with LDCT in 12 months. Electronically authenticated by: ADRIANNE RICHARDSON Date: 03/01/2024 07:23 Dictated By: Adrianne Richardson M.D. Signed By: 03/01/24725 DD/ 2 TD/TT: Rn Clinical Resource: [place] [address] CT Scan Report Signed Patient: MIYA RIVAS MR#: [id number] : 1965 Acct:[id number] Age/Sex: 58 / M ADM Date: 02/28/24 Loc: CT Attending Dr: Annemarie Rodney D.O. Ordering Physician: Annemarie Rodney D.O. Date of Service: 02/28/24 Procedure(s): CT ady g screening low-dose Accession Number(s): [id number] cc: Emerald Jean ARTIST AGENT [address] [place] [address] Patient Name: AHSAN RIVAS MRN: [id number] date: 1965 Sex: M Assigned Patient Location: CT Current Patient Location: Accession/Order Numb er: [id number] Exam Date: 02/28/2024 09:50 Report Date: 03/01/2024 07:23 At the request of: ANNEMARIE RODNEY Procedure: CT lung s creening low-dose EXAMINATION: CT lung screening low-dose HISTORY: F17.219 Z12.2 COMPARISON: 4 chest x-ray TECHNIQUE: Axial, Co fernanda, and Sagittal images were created without the administration of IV contrast material. Dose reduction techniques were achieved by using automated e xposure control and/or adjustment of mA and/or kV according to patient size and/ or use of iterative reconstruction technique. FINDINGS: LUNGS: Endotracheal bronchial tree. Minimal paraseptal emphysema right upper lobe. No significant pulmonary nodule or mass PLEURA: No mass, eff usion, or pneumothorax. VASCULATURE: No abnormality. EVANS: No mass or pat hologic adenopathy. MEDIASTINUM: No mass or pathologic adenopathy. CARDIAC: No enlargem ent or pericardial effusion CORONARY ARTERIES: C oronary calcifications are mild. AORTA: No aortic ane urysm. Mild calcific atherosclerosis CHEST WALL: No mass or axillary adenopathy BONES: No bone lesio n or fracture. LIMITED ABDOMEN: No suspicious findings. Limited images of the upper abdomen. OTHER: Negative. C T/CT lung screening low-dose IMPRESSION: LUNG SCREENING: Lung -RADS Category 1 Negative. No nodules and definitely benign nodules. Continue an nual screening with LDCT in 12 months. Electronically authe nticated by: ADRIANNE RICHARDSON Date: 03/01/2024 07:23 Dictated By: Adrianne Richardson M.D. Signed By: 03/01/24725 DD/ 2 TD/TT: Rn Clinical Resource: [id number] [facility] Reviewed date:07/05/2024 11:58:37 AM Interpretation: Performing Lab: Notes/Report: CT Chest Low Dose for Screen ing* Reviewed date:03/01/2024 08:19:45 AM Interpretation: Performing Lab: Notes/Report: Reason For Referral No Information Medications Medication SIG (Take, Route, Frequency, Duration) [...] user Moderate cigar ette smoker (10-19 cigs/day) Problems Problem Type SNOMED Code ICD Code Onset Dates Problem Status W/U Status Risk Notes Problem [id number] Pain in left foot (M79.672) Active confirmed Problem 319679753 Contact with and (suspected) exposure to asbestos (Z77.090) Active confirmed Problem COPD - Chronic obstructive pulmonary disease (73749107) COPD (chronic obstructive pulmonary disease) (J44.9) Active confirmed Problem Obstructive sleep apnea syndrome (34923582) ESTEPHANIE (obstructive sleep apnea) (G47.33) Active confirmed Problem Mental disorder caused by drug (402029390) Cigarette nicotine dependence with nicotine-induce d disorder (F17.219) Active confirmed Problem Ajrpf-7-crxponhwisi deficiency (11475586) 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 Vital Signs Heart Rate 60 /min 12/07/2024 Temperature 96.8 degrees Fahrenheit 12/07/2024 Respiratory Rate 16 /min 12/07/2024 Oximetry 97 % 12/07/2024 Blood pressure diastolic 78 mm Hg 12/07/2024 Height 68 in 12/07/2024 Blood pressure systolic 133 mm Hg 12/07/2024 Weight 173.0 lbs 12/07/2024 BMI 26.3 kg/m2 12/07/2024 Procedures Procedure Date Ordered Date Performed Result Body Sit e Inhaler Teaching/Aerosol-performed 02/24/2024 02/24/2024 N /A Encounters Encounter Location Date Provider Diagnosis [address] [address] 06/01/2024 [facility] COPD (chronic obstructive pulmonary disease) J44.9 ; Cigarette nicotine dependence with nicotine-induced disorder F17.219 ; Contact with and (suspected) exposure to asbestos Z77.090 and Encounter for screening for malignant neoplasm of respiratory organs Z12.[address] [address] 09/07/2024 [facility] COPD (chronic obstructive pulmonary disease) J44.9 ; AAT (kqwys-8-xergxmyryqx) deficiency E88.01 ; ESTEPHANIE (obstructive sleep apnea) G47.33 ; Cigarette nicotine dependence with nicotine-induced disorder F17.219 and Contact with and (suspected) exposure to asbestos Z77.090 Pulmonary Medicine [address] [address] 12/07/2024 [facility] COPD (chronic obstructive pulmonary disease) J44.9 ; AAT (cozzv-5-akdjpllfqqm) deficiency E88.01 ; ESTEPHANIE (obstructive sleep apnea) G47.33 ; Cigarette nicotine dependence with nicotine-induced disorder F17.219 ; Contact with and (suspected) exposure to asbestos Z77.090 and Encounter for screening for malignant neoplasm of respiratory organs Z12.[address] [address] 02/24/2024 [facility] COPD (chronic obstructive pulmonary disease) J44.9 ; Cigarette nicotine dependence with nicotine-induced disorder F17.219 ; Contact with and (suspected) exposure to asbestos Z77.090 and Encounter for screening for malignant neoplasm of respiratory organs Z12.[address] [address] 12/08/[address] [address] 03/02/[address] [address] 03/10/2024 [facility] COPD (chronic obstructive pulmonary disease) J44.9 Pulmonary Medicine [place] [address] [place] [address] 06/15/2024 Annemarie Rodney AAT (sdunu-8-ngilawnwqxi) deficiency E88.01 and COPD (chronic obstructive pulmonary disease) J44.9 Pul[facility] [place] [address] [place] [address] 08/09/2024 Annemarie [facility] Pulmonary Medicine [place] [address] [place] [address] 09/07/2024 Annemarie [facility] Pulmonary Medicine [place] [address] [place] [address] 09/16/2024 Annemarie Rodney Assessments Encounter Date Diagnosis (ICD Code) Assessment Notes Treatment Notes Treatment Clinical Notes Section Notes 02/24/2024 COPD (chronic obstructive pulmonary disease) (ICD-10 - J44.9) PFT from 01/06/2024 is consistent with moderate COPD. This is most likely due to his history of smoking (40 pack years). He is symptomatic, mainly with dyspnea and a daily productive cough. A maintenance inhaler was recommended for the patient. Appears that Stiolto is covered. Will start Stiolto 2 puffs daily. Inhaler demonstration was performed with the patient. Appropriate technique was demonstrated. Proper timing for administration was reviewed. Inhaler sample provided. Prescribed albuterol for rescue inhaler use. Discussed smoking cessation. Will discuss AAT screening next visit. Patient is to call us in several weeks to let us know how also Stiolto is working. Follow-up 3 months. 02/24/2024 Cigarette nicotine dependence with nicotine-induce d disorder (ICD-10 - F17.219) Discussed smoking cessation. Patient voiced no interest in stopping smoking at this time. He states he is cutting down and that is good enough for now. Explained to him that there is a constant tug-of-war between inhalers to improve his breathing and smoking which is deleterious to his respiratory status. He voiced understanding. Discussed LDCT screening for lung cancer. After discussion, he voiced he like to participate with that. LDCT has been ordered. Personally gave the patient the order along with instructions. 06/01/2024 COPD (chronic obstructive pulmonary disease) (ICD-10 - J44.9) Remains symptomatic despite Stiolto. He states Stiolto works in the morning, but then cuts out in early afternoon; this typically does not follow with the pharmacodynamics of the active ingredients, especially tiotropium which has a greater than 30-hour half-life. Question that the patient's continued tobacco abuse is the main reason his dyspnea and other respiratory symptoms persist in the afternoon. Regardless, the patient feels that Stiolto is not working well. I looked into other alternatives - the [place] Medicaid unified formulary lists Anoro as a covered inhaler that is the same class as Stiolto (LAMA/LABA). I personally performed inhaler teaching with the patient. I demonstrated the Ellipta device with him. I instructed him on appropriate use. He was counseled that it is 1 puff once a day, and he is to stop Stiolto once he begins Anoro. Ivresent albuterol to [facility] just in case they lost the [place]. As paraseptal emphysema is noted on LDCT, will check for alpha-1 antitrypsin (AAT) deficiency. Pamphlet discussing AAT causes, testing, and potential treatment was provided to the patient. Appropriate follow-up is dependent on identified genotype. F/U 3 months or sooner PRN. 09/07/2024 COPD (chronic obstructive pulmonary disease) (ICD-10 - [...] function. F/U 3 months for PAP evaluation. 09/07/2024 AAT (jqthh-6-aslszp ypsin) deficiency (ICD-10 - E88.01) AAT positive for [...] to document for any precipitous decline. 12/07/2024 COPD (chronic obstructive pulmonary disease) (ICD-10 [...] 3 months for PAP evaluation. 12/07/2024 AAT (zhyoe-2-etosle ypsin) deficiency (ICD-10 - E88.01) AAT positive for [...] PFT to document for any precipitous decline. 03/10/2024 COPD (chronic obstructive pulmonary disease) (ICD-10 - J44.9) 06/15/2024 COPD (chronic obstructive pulmonary disease) (ICD-10 - J44.9) 06/15/2024 AAT (ghujd-4-lpipjz ypsin) deficiency (ICD-10 - E88.01) 12/07/2024 ESTEPHANIE (obstructive sleep apnea) (ICD-10 - G47.33) Sleep testing was ordered by [facility] Cardiology. Voss-pj-bmge encounter performed with the patient to document continued need for PAP therapy. -Current DME: [facility] -PS02/18/2024; Initial AHI: 32 (3% rule), 21.4 (4%) rule -Last PAP titration: 03/31/2024 @ CPAP [id number] -Patient has not received any CPAP. He [...] within 30-90 days for PAP compliance documentation. 09/07/2024 ESTEPHANIE (obstructive sleep apnea) (ICD-10 - G47.33) Sleep testing was ordered by [facility] Cardiology. Edgw-pf-ohtb encounter performed with the patient to document continued need for PAP therapy. -Current DME: [facility] -PS02/18/2024; Initial AHI: 32 (3% rule), 21.4 (4%) rule -Last PAP titration: 03/31/2024 @ CPAP [id number] -Patient has not received any CPAP. He [...] within 30-90 days for PAP compliance documentation. 06/01/2024 Cigarette nicotine dependence with nicotine-induce d disorder (ICD-10 - F17.219) Discussed smoking cessation again. Patient is smoking approximately 1/2 pack a day. Explained to him that he may continue to have symptoms for as long as he smokes; smoking can negate some of the beneficial effects from the inhalers. I encouraged him to at least cut down on smoking by next visit, though even 1 cigarette a day is 1 cigarette too much. Patient had a LDCT done on 02/28/2024 which was read as RADS-1. Next LDCT will be due February 2025.Discussed LDCT screening for lung cancer. After discussion, he voiced he like to participate with that. LDCT has been ordered. Personally gave the patient the order along with instructions. 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 Discussed mesothelioma can manifest 20 to 30 years after asbestos exposure. LDCT will help screen for any pleural thickening or other concerns of asbestos-related lung disease. 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 Discussed mesothelioma can manifest 20 to 30 years after asbestos exposure. LDCT will help screen for any pleural thickening or other concerns of asbestos-related lung disease. 02/24/2024 Encounter for screening for malignant neoplasm of respiratory organs (ICD-10 - Z12.2) Low-dose CT (LDCT) was recommended for lung cancer screening. The patient meets criteria including age 50-77, a smoking history of at least 20 pack-years, is currently smoking or has ceased smoking within the past 15 years, and has no signs or symptoms of lung cancer. Shared decision making performed with the patient. After LDCT has been completed, will review report and/or imaging and provide appropriate recommendations for the patient, including additional follow up if needed. Patient was counseled on smoking cessation/continued tobacco abstinence. 09/07/2024 Cigarette nicotine dependence with nicotine-induce d disorder (ICD-10 - F17.219) Discussed smoking cessation yet again. He remains at 1/2ppd. He states he is trying to cut down. Explained now that he has AAT-MZ, it is more important now than ever to stop smoking. He voiced it is difficult. He was encouraged to continue to try to quit. LDCT due 02/2025. 12/07/2024 Cigarette nicotine dependence with nicotine-induce d disorder (ICD-10 - F17.219) Discussed smoking cessation yet again. He remains at 1/2ppd. He states he is trying to cut down. Explained now that he has AAT-MZ, it is more important now than ever to stop smoking. He voiced it is difficult. He was encouraged to continue to try to quit. LDCT due 02/2025. 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 Discussed mesothelioma can manifest 20 to 30 years after asbestos exposure. LDCT will help screen for any pleural thickening or other concerns of asbestos-related lung disease. 06/01/2024 Encounter for screening for malignant neoplasm of respiratory organs (ICD-10 - Z12.2) Low-dose CT (LDCT) was recommended for lung cancer screening. The patient meets criteria including age 50-77, a smoking history of at least 20 pack-years, is currently smoking or has ceased smoking within the past 15 years, and has no signs or symptoms of lung cancer. Shared decision making performed with the patient. After LDCT has been completed, will review report and/or imaging and provide appropriate recommendations for the patient, including additional follow up if needed. Patient was counseled on smoking cessation/continued tobacco abstinence. LDCT due 02/2025. 12/07/2024 Contact with and [...] neoplasm of respiratory organs (ICD-10 - Z12.2) 09/07/2024 Other Low-dose CT (LDCT) was recommended for lung cancer screening. The patient meets criteria including age 50-77, a smoking history of at least 20 pack-years, is currently smoking or has ceased smoking within the past 15 years, and has no signs or symptoms of lung cancer. Shared decision making performed with the patient. After LDCT has been completed, will review report and/or imaging and provide appropriate recommendations for the patient, including additional follow up if needed. Patient was counseled on smoking cessation/continued tobacco abstinence. LDCT due 02/2025. 12/07/2024 Other Plan Of Treatment Next Appt Details Provider Name:Annemarie Rodney, 06/07/2025 07:30:00 AM, [address] [place], [address], Insurance Providers Payer Name Payer Address Payer Phone Subscriber Number Group Number Insured Name Patient Relationship to Insured Coverage Start Date Coverage End Date [employer] [place] [employer] [address] [facility] [place] [address] [phone] [id number] Rob Ahsan Self - patient is the insured 2 Medical (General) History Medical History History ICD Code COPD (chronic obstructive pulmonary dise ase) J44.9 Cigarette nicotine dependence with nicot ine-induced disorder F17.219 AAT (ynuae-9-dhipcczgxlv) deficiency E88 .01 HTN (hypertension) I10 ESTEPHANIE (obstructive sleep apnea) G47.33 fx left 3rd metatarsal bone 12/2022 Surgical History Surgery Date(Month/Year) tonsillectomy right hip, bone removed to reconstruct k nee left knee reconstruction Bilateral rotator cuffs Hospitalization History Reason Date(Month/Year)
--- OUTSIDE RECORDS SUMMARY | 2024-12-07 08:19 | XMS_ITS | Encounter Summary ---
Author Organization [facility] Address [address] [place] [address] Care Team Providers Care Hand Bootmaker Name Role Phone Unavailable Primary Care Provider Unavailabl e Encounter Details Date Type Department Care Team (Late st Contact Info) Description 07/09/2016 FollowUp Telephone Encounter [facility] [address] [place] [id number] Kathleen Pinto, RN Social History Tobacco Use Types Packs/Day Years Used Date Smoking Tobacco: Every Day Cigarettes Alcohol Use Standard Drinks/Week Comments Yes 4 (1 standard drink = 0.6 oz pur e alcohol) Sex and Gender Information Value Date Recorded Sex Assigned at Not on file Legal Sex Male 5:49 PM EST Gender Identity Not on file Sexual Orientation Not on file documented as of this encounter Plan of Treatment Not on file documented as of this encounter Visit Diagnoses Not on filedocumented in this encounter
--- OUTSIDE RECORDS SUMMARY | 2024-12-07 08:20 | XMS_ITS | Clinical Summary ---
Author Organization [facility] Address [address] [place] [address] Care Team Providers Care Store Grocery Merchandiser Name Role Phone Emerald Jean MD Primary Care Provider [phone] Allergies Active Allergy Reactions Criticality Noted Date Comments Hornet Venom Swelling 03/10/2024 Medications Medication Sig Dispensed Refills Start Date End Date Status metoprolol succinate XL (Toprol-XL) 50 mg 24 hr tabletIndications:Pr imary hypertension Take 1 tablet (50 mg) by mouth once daily as directed. Do not crush or chew. 90 tablet 3 12/10/2023 5 Active Additional Information Patient taking differently: 25 mgoral Once Daily, Do not crush or chew., Reported on 01/19/2024 amLODIPine-benazepri L (LotreL) 10-20 mg capsuleIndications:E ssential hypertension Take 1 capsule by mouth in the morning. 30 capsule 11 01/19/2024 5 Active Anoro Ellipta 62.5-25 mcg/actuation blister with device Inhale 1 puff in the morning. Active albuterol 90 mcg/actuation inhaler Inhale 2 puffs every 4 (four) hours if needed. 06/02/2024 Active atorvastatin (Lipitor) 20 mg tabletIndications:Mi xed hyperlipidemia Take 1 tablet (20 mg) by mouth at bedtime. 90 tablet 3 10/06/2024 6 Active Active Problems Problem Noted Date Diagnosed Date Hyperlipidemia 08/25/2024 Chest pain 07/12/2024 Loss of consciousness 03/23/2024 Orthostatic hypotension 03/23/2024 Alcohol abuse 01/19/2024 Tobacco abuse 01/19/2024 Syncope and collapse 12/10/2023 Essential hypertension 12/10/2023 OSBORNE (dyspnea on exertion) 12/10/2023 Palpitations 12/10/2023 Sleep apnea 12/10/2023 Encounters Date Type Department Care Team Description 09/29/2024 Telephone [facility] [address] [place] [address] Michelle Cruz MA 09/22/2024 Telephone [facility] [address] [place] [address] Salina Raza MA from Last 3 Months Family History Medical History Relation Name Comments COPD Father Cancer Mother Relation Name Status Comments Father Mother Social History Tobacco Use Types Packs/Day Years Used Date Smoking Tobacco: Every Day Cigarettes 1 16 Smokeless Tobacco: Never Alcohol Use Standard Drinks/Week Comments Yes 8 (1 standard drink = 0.6 oz pur e alcohol) [place] Safety & Environment Answer Date Rec orded Fear of Current or Ex-Partner Not on file Emotionally Abused Not on file 12/04/2023 Physically Abused Not on file 12/04/2023 Sexually Abused Not on file 12/04/2023 Physically or Sexually Abused Not on file Sex and Gender Information Value Date Recorded Sex Assigned at Not on file Gender Identity Not on file Sexual Orientation Not on file Last Filed Vital Signs Vital Sign Reading Time Taken Comments Blood Pressure 132/80 08/25/2024 3:18 PM EST Pulse 64 08/25/2024 3:18 PM EST Temperature - - Respiratory Rate - - Oxygen Saturation 98% 08/25/2024 3:18 PM EST Inhaled Oxygen Concentration - - Weight 83.9 kg (185 lb) 08/25/2024 3:18 PM EST Height 177.8 cm (5' 10 ) 08/25/2024 3:18 PM EST Body Mass Index 26.54 08/25/2024 3:18 PM EST Plan of Treatment Health Maintenance Due Date Last Done Comments CT Colonography 1965 Colonoscopy 1965 Colorectal Cancer Screening 1965 FIT-DNA 1965 FIT 1965 FOBT 1965 Sigmoidoscopy 1965 Pneumococcal Vaccine: Pediat rics (0 to 5 Years) and At-Risk Patients (6 to 64 Years) (1 of 2 - PCV) 1970 Depression Screening 1976 Adult Tetanus 1986 Zoster Vaccines (1 of 2) 2014 COVID-19 Vaccine ( - 2023-2 5 season) 2024 Influenza Vaccine (Season Ended) 2025 HIB Vaccines Aged Out No longer eligi ble based on patient's age to complete this topic HPV Vaccines Aged Out No longer eligi ble based on patient's age to complete this topic IPV Vaccines Aged Out No longer eligi ble based on patient's age to complete this topic Meningococcal B Vaccine Aged Out No l onger eligible based on patient's age to complete this topic Meningococcal Vaccine Aged Out No nasra jill eligible based on patient's age to complete this topic Rotavirus Vaccines Aged Out No longer eligible based on patient's age to complete this topic Care Teams Store Grocery Merchandiser Relationship Specialty Start Date End Date Emerald Jean MD [address] [place] [phone] PCP - General Nurse Practitioner 12/09/23
--- OUTSIDE RECORDS SUMMARY | 2024-12-07 08:20 | XMS_ITS | Referral Summary ---
Author Organization [facility] Address [address] [place] [address] Care Team Providers Care Business Consultant Name Role Phone Emerald Jean MD Primary Care Provider [phone] Encounters Date Type Department Care Team Description 09/29/2024 Telephone [facility] [address] [place] [address] Michelle Cruz MA 09/22/2024 Telephone [facility] [address] [place] [address] Salina Raza MA from Last 3 Months Allergies Active Allergy Reactions Criticality Noted Date [...] in the morning. 30 capsule 11 01/19/2024 Active Anoro Ellipta 62.5-25 mcg/actuation blister with device Inhale 1 puff in the morning. Active albuterol 90 mcg/actuation inhaler Inhale 2 puffs every 4 (four) hours if needed. 06/02/2024 Active atorvastatin (Lipitor) 20 mg tabletIndications:Mi xed hyperlipidemia Take 1 tablet (20 mg) by mouth at bedtime. 90 tablet 3 10/06/2024 Active Active Problems Problem Noted Date Diagnosed Date Hyperlipidemia 08/25/2024 Chest pain 07/12/2024 Loss of consciousness 03/23/2024 Orthostatic hypotension 03/23/2024 Alcohol abuse 01/19/2024 Tobacco abuse 01/19/2024 Syncope and collapse 12/10/2023 Essential hypertension 12/10/2023 [place] (dyspnea on exertion) 12/10/2023 Palpitations 12/10/2023 Sleep apnea 12/10/2023 Social History Tobacco Use Types Packs/Day Years [...] 08/25/2024 3:18 PM EST Plan of Treatment Not on file Care Teams Business Consultant Relationship Specialty Start Date End Date Emerald Jean MD [address] [place] [phone] PCP - General Nurse Practitioner 12/09/23
--- OUTSIDE RECORDS SUMMARY | 2024-12-07 08:20 | XMS_ITS | Clinical Summary ---
Author Organization [facility] Address [address] [place] [address] Care Team Providers Care Learning Analyst Name Role Phone Miranda Emerald SUPERINTENDENT MEASUREMENT Unavailable Michelle Houston SUPERINTENDENT MEASUREMENT Unavailable [phone] Allergies Active Allergy Reactions Criticality Noted Date Comments Hornet Venom Swelling 03/10/2024 Medications lisinopril 10 MG tablet Take 10 mg by mouth Daily 4 Active metoprolol succinate XL (Toprol-XL) 50 MG 24 hr tablet Take 50 mg by mouth Daily Active amLODIPine-abilio zepril (Lotrel) 10-20 MG capsule Take 1 capsule by mouth in the morning. 4 01/19/20 25 Active meloxicam (Mobic) 15 MG tablet Take 15 mg by mouth Daily 3 Active EPINEPHrine (Epipen) 0.3 MG/0.3ML injection syringe Inject 1 Syringe as directed 1 (one) time 4 Active Stiolto Respimat 2.5-2.5 MCG/ACT aerosol solution inhaler Inhale 2 Inhalation Daily Active albuterol HFA 90 mcg/act inhaler Inhale 2 puffs every 4 (four) hours if needed 4 Active Anoro Ellipta 62.5-25 MCG/ACT aerosol powder Inhale 1 puff Daily 4 Active Active Problems Problem Noted Date Diagnosed Date Loss of consciousness 03/23/2024 Orthostatic hypotension 03/23/2024 Social History Tobacco Use Types Packs/Day Years Used Date Smoking Tobacco: Every Day Cigarettes 1 44.7 Started: 1979; Last attempted to quit: 03/21/2024 Smokeless Tobacco: Never Tobacco Cessation:Ready to Q uit: Not Asked; Counseling Given: Not Answered Alcohol Use Standard Drinks/Week Comments Yes 2 (1 standard drink = 0.6 oz pur e alcohol) Sex and Gender Information Value Date Recorded Sex Assigned at Not on file Legal Sex Male 9:20 AM EDT Gender Identity Not on file Sexual Orientation Not on file Last Filed Vital Signs Vital Sign Reading Time Taken Comments Blood Pressure 116/64 06/15/2024 3:57 PM EST Pulse 69 06/15/2024 3:57 PM EST Temperature - - Respiratory Rate 16 01/20/2024 10:40 AM EDT Oxygen Saturation 96% 06/15/2024 3:57 PM EST Inhaled Oxygen Concentration - - Weight 80.7 kg (178 lb) 06/15/2024 3:57 PM EST Height 177.8 cm (5' 10 ) 06/15/2024 3:57 PM EST Body Mass Index 25.54 06/15/2024 3:57 PM EST Plan of Treatment Health Maintenance Due Date Last Done Comments CT Colonography 1964 Colonoscopy 1964 Colorectal Cancer Screening 1964 FIT-DNA 1964 FIT 1964 FOBT 1964 Sigmoidoscopy 1964 Influenza Vaccine (Season Ended) 2025 Insurance [employer] Care Teams Learning Analyst Relationship Specialty Start Date End Date Michelle Houston NP [address] [place] [phone] PCP - [facility] 07/07/24 Emerald Jean NP [address] [place] [address] Referring Physician Family Medicine 12/23/23
--- OUTSIDE RECORDS SUMMARY | 2024-12-07 08:33 | XMS_ITS | CCD ---
Author Organization [facility] Care Team Providers Care Trolley Worker Name Role Phone ANABEL LONG Unavailable Unavailable ANABEL LONG Unavailable Unavailable ANABEL LONG Unavailable Unavailable ANABEL LONG Unavailable Unavailable TAMMY CONTRERAS Unavailable Unavailable GEE JONES Admitting Unavailable GEE JONES Attending Unavailable LINCOLN MOKN Consulting Unavaila ble BV, Physician - Emergency Consulting Kajal Wood Consulting Unavailable DO Jamaica Borges Attending Provider PRIMO Jean [place] Primary Care Provider MD Ayanna Waldron Attending Provider [phone] Miranda GIRLS TENNIS COACH, Emerald Unavailable JAMAICA BORGES Attending Unavailable JAMAICA [...] Unavailab Jamaica Pedraza Attending Unavailab le Miranda, [place] [facility] Unavailable Asaad, Imad Admitting Unavailable Asaad, Imad Attending Unavailable Weed, [place] [facility] Unavailable Asaad, Imad Attending Unavailable Miranda, [place] [facility] Unavailable Asaad, Imad Admitting Unavailable Asaad, Imad Attending Unavailable [facility] Primary Care Unavailable Asaad, Imad Admitting Unavailable ELISABETH PEREZ Attending Unavailable ELISABETH PEREZ Attending Unavailable ELISABETH PEREZ Attending Unavailable ELISABETH PEREZ Attending Unavailable ELISABETH PEREZ Attending Unavailable Allergies Allergy Classification Reported Allergen(s) Allergy Type Date of Onset Reaction(s) Facility (1 source) No Known Medication Allergies; Translations: [No Known Medication Allergies] Propensity to adverse reactions to drug (disorder) [facility] Repository (5 sources) Hornet venom; Translations: [HORNET VENOM] Propensity to adverse reactions 4 [facility] (1 source) bee venom protein (honey bee) Drug allergy (disorder) 4 [facility] Repository Medications Current Medications Medication Drug Class(es) Dates Sig (Normalized) Sig (Original) [id number] 200 actuat albuterol 0.09 mg/actuat metered dose [...] mouth in the morning. 01/19/2024 01/18/2025 Active [id number] 0.3 ml EPINEPHrine 1 mg/ml auto-injector (4 [...] Name Value Interpretation Reference Range Facility 36on 10-06-2024 36 Tried to contact pat ient for the 3rd time. His VM is full and I'm unable to LM. I have ordered the labs and sent in atorvastatin. I will send lab orders to patient in the mail and make him aware of medication to start. Normal [facility] 36on 09-29-2024 36 Regarding labs from 09/07/2024: MD Michelle Shetty MA Cholesterol is mildly high. Start atorvastatin 20 mg daily and recheck lipids and AST ALT in 2 months LM for patient to return my call. Kaitlin last week also. Normal [facility] Office Visiton 08-25-2024 Follow-up visit [id number] Javier Nielsen A 1965 M Date Provider Department Center 08/25/2024 18525-JTCUMSELISABETH PEREZ RADHA [facility] Family History Problem Relation Age of Onset Cancer Mother COPD Father Family Status - Relation Status Age at Mother Father Level of Service:16190 [place] OFFICE/OUTPATIENT ESTABLISHED MOD MDM 30 MIN Reason for Visit and Comments: Syncope [506] - Had stress test 08/06/2024. Denies chest pain and SOB. Denies recurrent syncope. Palpitations [967316] Normal [facility] Office Visiton 07-12-2024 Follow-up visit [id number] Javier Nielsen A 1965 M Date Provider Department Center 07/12/2024 58973-IDSIIMELISABETH PEREZ RADHA [facility] Family History Problem Relation Age of Onset Cancer Mother COPD Father Family Status - Relation Status Age at Mother Father Level of Service:71501 [place] OFFICE/OUTPATIENT ESTABLISHED MOD MDM 30 MIN Reason for Visit and Comments: Hypertension [131605] - Denies chest pain. Palpitations [460901] - No more than usual for him. Syncope [506] - Denies recurrence. Says he's gotten used to taking his time upon standing up to prevent lightheadedness/dizziness. He's been feeling a lot better the past month or so. Normal [facility] MR abdomen wo/w conon 2023 MR abdomen wo/w con [facility] [place] [address] MRI Report Signed Patient: Ahsan Nielsen MR#: [id number] : 1965 Acct:[id number] Age/Sex: 58 / M ADM Date: 05/05/24 Loc: MR Room: Type: [facility] Attending Dr: Ayanna Waldron MD Copies to: [...] Rey Jr., D.O.05/06/2024 9:42 AM Dictation Location: [place] [address] Transcribed By: RHINA 05/06/24941 Dictated By: Shiva Rey Jr, DO 05/06/2434 Signed By: 05/06/24941 Normal [facility] liveron 04-03-2024 liver [facility] [place] [address] Ultrasound Report Signed Patient: Ahsan Nielsen MR#: [id number] : 1965 Acct:[id number] Age/Sex: 58 / M ADM Date: 04/03/24 Loc: Room: Type: [facility] Attending Dr: Ayanna Waldron MD Ordering Provider: [...] Jai Lees M.D.04/03/2024 9:50 AM Dictation Location: [place] [address] Tech: Devorah Brown Transcribed By: RHINA 04/03/2450 Dictated By: Jai Lees DO 04/03/2436 Signed By: 04/03/24949 Normal [facility] Alanine aminotransferase [En zymatic activity/volume] in Serum or PlasmaOrdered By: Ayanna Waldron on 03-25-2024 ALT [Catalytic activity/Vol] 17 U/L Normal 7-52 [facility] Comment on above: Performed By: #### H BV PCR, HBSAB, HEMOCHROM, HBCAB, HBeAG, HIV SCREEN, HBEAB, HAABT, HAAB, HCBIGM, HCV RX PCR, HDAB, HBSAG, CERULOP, ALPHA PHEN #### [facility] , #### HEPATIC #### [facility] [address] Albumin [Mass/volume] in Ser um or Plasma by Bromocresol green (BCG) dye binding methoOrdered By: Ayanna Waldron on 03-25-2024 Albumin BCG dye [Mass/Vol] 4.7 g/dL 3.5-5.7 [facility] Alkaline phosphatase [Enzyma tic activity/volume] in Serum or PlasmaOrdered By: Ayanna Waldron on 03-25-2024 ALP [Catalytic activity/Vol] 73 U/L Normal 34-104 [facility] Comment on above: Result Comment: PERF ORMED BY: [place] [address] PATHOLOGIST STUDIO PRODUCER CECILY VILLAGRAN M.D. Performed By: #### H BV PCR, HBSAB, HEMOCHROM, HBCAB, HBeAG, HIV SCREEN, HBEAB, HAABT, HAAB, HCBIGM, HCV RX PCR, HDAB, HBSAG, CERULOP, ALPHA PHEN #### [facility] , #### HEPATIC #### [facility] [address] [place] [address] Vbxzu-6-Mecihawsspi Phenotyp heidi 03-25-2024 Alpha 1 Anti-Trypsin 119 mg/dL Normal 101-187 [facility] Comment on above: Performed By: #### H BV PCR, HBSAB, HEMOCHROM, HBCAB, HBeAG, HIV SCREEN, HBEAB, HAABT, HAAB, HCBIGM, HCV RX PCR, HDAB, HBSAG, CERULOP, ALPHA PHEN ####[facility] ,#### HEPATIC ####[place] [address] [address] Phenotype (P1) MZ Normal . [facility] Comment on above: Result Comment: MM Phenotype is considered to be normal , producing normal serum levels of nnfhk-2-wzjhgbsi inhibitor and not associated with clinical disease. [...] Ranges used to confirm phenotype. Performed at: [address] [id number] Still Operator Brandy: Prashanth Cat PhD, Phone: [phone] Performed at: [facility] [address] [id number] Still Operator Brandy: Girish Kay MD, Phone: [phone] Performed By: #### H BV PCR, HBSAB, HEMOCHROM, HBCAB, HBeAG, HIV SCREEN, HBEAB, HAABT, HAAB, HCBIGM, HCV RX PCR, HDAB, HBSAG, CERULOP, ALPHA PHEN ####[facility] ,#### HEPATIC ####[facility] Aspartate aminotransferase [ Enzymatic activity/volume] in Serum or PlasmaOrdered By: Ayanna Waldron on 03-25-2024 AST [Catalytic activity/Vol] 16 U/L Normal 13-39 [facility] Comment on above: Performed By: #### H BV PCR, HBSAB, HEMOCHROM, HBCAB, HBeAG, HIV SCREEN, HBEAB, HAABT, HAAB, HCBIGM, HCV RX PCR, HDAB, HBSAG, CERULOP, ALPHA PHEN #### [facility] , #### HEPATIC #### [facility] [address] Bilirubin.direct [Mass/volum e] in Serum or PlasmaOrdered By: Imad Asaad on 03-25-2024 Bilirubin.direct [Mass/Vol] 0.10 mg/dL 0.03-0.18 [facility] Bilirubin.total [Mass/volume ] in Serum or PlasmaOrdered By: Imad Asaad on 03-25-2024 Bilirubin [Mass/Vol] 0.9 mg/dL Normal 0.3-1.0 [facility] Comment on above: Performed By: #### H BV PCR, HBSAB, HEMOCHROM, HBCAB, HBeAG, HIV SCREEN, HBEAB, HAABT, HAAB, HCBIGM, HCV RX PCR, HDAB, HBSAG, CERULOP, ALPHA PHEN #### [facility] , #### HEPATIC #### [address] Blood or tissue HFE gene mut ations identification by molecular genetics methodOrdered By: Ayanna Waldron on 03-25-2024 HFE gene targeted mutation analysis Molgen Nom (Bld/Tiss) Comment . [facility] Comment on above: Results:c.845G>A (p. Onm945Rnd) - Not Detectedc.187C>G (p.Vlu90Sll) - Detected, heterozygousc.193A>T (p.Ety72Yns) - Not DetectedNot associated with increased risk [...] recommended for patientswho are homozygous for c.845G>A (p.Pad315Slp) and have yetto experience clinical symptoms.Comments:The most common HFE variants associated with hereditaryhemochromatosis are c.845G>A (p.Fqr261Tju), c.187C>G(p.Ohr13Sfd), c.193A>T (p.Hcd56Qix). While patientshomozygous for c.845G>A (p.Icm572Tdg) are the most likelyto present clinical symptoms, less than 10% developclinically significant iron overload with tissue and organdamage.Genetic counseling is recommended to discuss the potentialclinical implications of positive results, as well asrecommendations for testing family members.Genetic Coordinators are available for health careproviders to discuss results at [phone] Details:Three variants analyzed:c.845G>A (p.Xrw370Ais), commonly referred to as C282Yc.187C>G (p.Gkl22Vbn), commonly referred to as H63Dc.193A>T (p.Ysd43Nto), commonly referred to as S92XNviunbb/Limitations:DNA Analysis of the HFE gene (NM_000410.4) was [...] was developed and its performancecharacteristics determined by [employer]. It has not beencleared or approved by the Food and Drug Administration.References:Jorden BR, Jin PC, Fernandez KV, Jarret LW, Michell ;[place] [employer] for the Study [employer] Liver Diseases.Diagnosis and management of hemochromatosis: 2011 practiceguideline by the [place] Association for the Study ofLiver Diseases. Hepatology. 2010;54(1):328-43. doi:10.1002/hep.10390. PMID: 38412053; PMCID: UUC0023716.Dakota G, Paramjit P, Kina SANCHEZ, Kathryn H, Rosemary O,Lucian S, Casey I, Mahad M, Lauren S. EMQN best practiceguidelines for the molecular genetic diagnosis ofhereditary hemochromatosis (HH). Eur J Hum Alisha. 2016Apr;24(4):479-95. doi: 10.1038/ejhg.2015.128. Epub 2014. PMID: 18368264; PMCID: NAQ9956841. Ceruloplasminon 03-25-2024 Ceruloplasmin 32.5 mg/dL High 16.0-31.0 [facility] Comment on above: Result Comment: Perf ormed at: - [facility] [id number] Still Operator Brandy: Prashanth Cat PhD, Phone: [phone] PERFORMED BY: [place] [address] PATHOLOGIST STUDIO PRODUCER CECILY VILLAGRAN M.D. Performed By: #### H BV PCR, HBSAB, HEMOCHROM, HBCAB, HBeAG, HIV SCREEN, HBEAB, HAABT, HAAB, HCBIGM, HCV RX PCR, HDAB, HBSAG, CERULOP, ALPHA PHEN #### [facility] , #### HEPATIC #### [address] HIV 1/O/2 Antigen/Antibodyon 03-25-2024 HIV Screen 4th Generation Non-Reactive Normal Non Reactive [facility] Comment on above: Result Comment: HIV- 1/HIV-2 antibodies and HIV-1 p24 antigen were NOT detected. There is no laboratory evidence of HIV infection. HIV Negative Performed at: [facility] [address] [place], [place] [id number] Still Operator Brandy: Prashanth Cat PhD, Phone: [phone] Performed By: #### H BV PCR, HBSAB, HEMOCHROM, HBCAB, HBeAG, HIV SCREEN, HBEAB, HAABT, HAAB, HCBIGM, HCV RX PCR, HDAB, HBSAG, CERULOP, ALPHA PHEN ####[facility] ,#### HEPATIC ####[facility] HIV 1 and HIV-2 antibody ass ay with HIV-1 p24 antigen detectionOrdered By: Ayanna Waldron on 03-25-2024 HIV 1+2 Ab+HIV1 p24 Ag IA Ql Non-Reactive Non Reactive [facility] Comment on above: HIV-1/HIV-2 antibodi es and HIV-1 p24 antigen were NOTdetected. There is no laboratory evidence of HIV infection.HIV NegativePerformed at: [place] [id number] [place], [place] [id number] Director: Prashanth Cat PhD, Phone: [phone] Hep B Real-Time PCR, Quanton 03-25-2024 HBV As IU/mL Not detected Normal . [facility] Comment on above: Performed By: #### H BV PCR, HBSAB, HEMOCHROM, HBCAB, HBeAG, HIV SCREEN, HBEAB, HAABT, HAAB, HCBIGM, HCV RX PCR, HDAB, HBSAG, CERULOP, ALPHA PHEN ####[facility] ,#### HEPATIC ####[facility] Log10 HBV (As IU/mL) Normal . [facility] Comment on above: Result Comment: Resu lt Units: log10 IU/mL Unable to calculate result since non-numeric result obtained for component test. Performed By: #### H BV PCR, HBSAB, HEMOCHROM, HBCAB, HBeAG, HIV SCREEN, HBEAB, HAABT, HAAB, HCBIGM, HCV RX PCR, HDAB, HBSAG, CERULOP, ALPHA PHEN ####[facility] ,#### HEPATIC ####[address] Test Information: Comment Normal . [facility] Comment on above: Result Comment: The reportable range for this assay is 10 IU/mL to 1 billion IU/mL. Performed at: [address] [id number] Still Operator Brandy: Girish Kay MD, Phone: [phone] PERFORMED BY: [place] [address] PATHOLOGIST STUDIO PRODUCER CECILY VILLAGRAN M.D. Performed By: #### H BV PCR, HBSAB, HEMOCHROM, HBCAB, HBeAG, HIV SCREEN, HBEAB, HAABT, HAAB, HCBIGM, HCV RX PCR, HDAB, HBSAG, CERULOP, ALPHA PHEN ####[facility] ,#### HEPATIC ####[address] Hep C Ab wRfx to Qnt PCRon 0 03-25-2024 Hepatitis C Virus Antibody Non-Reactive Normal Non Reactive [facility] Comment on above: Performed By: #### H BV PCR, HBSAB, HEMOCHROM, HBCAB, HBeAG, HIV SCREEN, HBEAB, HAABT, HAAB, HCBIGM, HCV RX PCR, HDAB, HBSAG, CERULOP, ALPHA PHEN #### [facility] , #### HEPATIC #### [address] Interpretation Hepatitis C Comment Normal . [facility] Comment on above: Result Comment: [...] PHEN #### [facility] , #### HEPATIC #### [facility] [address] Hepatic Panelon 03-25-2024 Albumin [Mass/Vol] 4.7 g/dL Normal 3.5-5.7 [facility] Comment on above: Performed By: #### H BV PCR, HBSAB, HEMOCHROM, HBCAB, HBeAG, HIV SCREEN, HBEAB, HAABT, HAAB, HCBIGM, HCV RX PCR, HDAB, HBSAG, CERULOP, ALPHA PHEN #### [facility] , #### HEPATIC #### [address] Bilirubin,Indirect 0.8 mg/dL Normal [facility] Comment on above: Performed By: #### H BV PCR, HBSAB, HEMOCHROM, HBCAB, HBeAG, HIV SCREEN, HBEAB, HAABT, HAAB, HCBIGM, HCV RX PCR, HDAB, HBSAG, CERULOP, ALPHA PHEN #### [facility] , #### HEPATIC #### [address] Bilirubin.indirect [Mass/Vol] 0.10 mg/dL Normal 0.03-0.18 [facility] Comment on above: Performed By: #### H BV PCR, HBSAB, HEMOCHROM, HBCAB, HBeAG, HIV SCREEN, HBEAB, HAABT, HAAB, HCBIGM, HCV RX PCR, HDAB, HBSAG, CERULOP, ALPHA PHEN #### [facility] , #### HEPATIC #### [address] Hepatitis A Antibody IgMon 0 03-25-2024 Hepatitis A Antibody IgM Negative Normal Negative [facility] Comment on above: Result Comment: A ne gative anti-HAV IgM result suggests no recent or current HAV infection. Performed By: #### H BV PCR, HBSAB, HEMOCHROM, HBCAB, HBeAG, HIV SCREEN, HBEAB, HAABT, HAAB, HCBIGM, HCV RX PCR, HDAB, HBSAG, CERULOP, ALPHA PHEN #### [facility] , #### HEPATIC #### [facility] [address] [place] [address] [place] Hepatitis A Antibody Totalon 03-25-2024 Hepatitis A Antibody Total Negative Normal Negative [facility] Comment on above: Result Comment: [...] total antibody results to IgM (e.g., panel #[id number] HAV Antibody w/ Rfx). Performed By: #### H BV PCR, HBSAB, HEMOCHROM, HBCAB, HBeAG, HIV SCREEN, HBEAB, HAABT, HAAB, HCBIGM, HCV RX PCR, HDAB, HBSAG, CERULOP, ALPHA PHEN #### [facility] , #### HEPATIC #### [facility] [address] Hepatitis A virus Ab [Presen ce] in Serum by ImmunoassayOrdered By: Ayanna Waldron on 03-25-2024 HAV Ab IA Ql (S) Negative Negative [facility] Comment on above: Comment: The HAV [...] HAVtotal antibody results to IgM (e.g., panel #[id number] HAVAntibody w/ Rfx). Hepatitis B Core Antibodyon 03-25-2024 Hepatitis B Core Antibody Positive Critically abnormal Negative [facility] Comment on above: Performed By: #### H BV PCR, HBSAB, HEMOCHROM, HBCAB, HBeAG, HIV SCREEN, HBEAB, HAABT, HAAB, HCBIGM, HCV RX PCR, HDAB, HBSAG, CERULOP, ALPHA PHEN ####[facility] ,#### HEPATIC ####[facility] Hepatitis B Core Antibody Ig Mon 03-25-2024 Hepatitis B Core Antibody IgM Negative Normal Negative [facility] Comment on above: Result Comment: Perf ormed at: [facility] [id number] Still Operator Brandy: Prashanth Cat PhD, Phone: [phone] Performed By: #### H BV PCR, HBSAB, HEMOCHROM, HBCAB, HBeAG, HIV SCREEN, HBEAB, HAABT, HAAB, HCBIGM, HCV RX PCR, HDAB, HBSAG, CERULOP, ALPHA PHEN #### [facility] , #### HEPATIC #### [address] Hepatitis B Surface Antibody on 03-25-2024 Hepatitis B Surface Antibody Reactive Normal . [facility] Comment on above: Result Comment: [...] PHEN #### [facility] , #### HEPATIC #### [address] Hepatitis B Surface Antigeno n 03-25-2024 HBsAg Screen Negative Normal Negative [facility] Comment on above: Result Comment: PERF ORMED BY: [place] [address] PATHOLOGIST STUDIO PRODUCER CECILY VILLAGRAN M.D. Performed By: #### H BV PCR, HBSAB, HEMOCHROM, HBCAB, HBeAG, HIV SCREEN, HBEAB, HAABT, HAAB, HCBIGM, HCV RX PCR, HDAB, HBSAG, CERULOP, ALPHA PHEN ####[facility] ,#### HEPATIC ####[place] [address] [address] Hepatitis B virus surface Ab [Presence] in SerumOrdered By: Imad Asaad on 03-25-2024 HBV surface Ab Ql (S) Reactive . [facility] Comment on above: Non Reactive: Not im [...] HBV surface Ag IA Ql Negative Negative [facility] Hepatitis Be Antibodyon 03-07 Hepatitis Be Antibody Reactive Critically abnormal Negative [facility] Comment on above: Performed By: #### H BV PCR, HBSAB, HEMOCHROM, HBCAB, HBeAG, HIV SCREEN, HBEAB, HAABT, HAAB, HCBIGM, HCV RX PCR, HDAB, HBSAG, CERULOP, ALPHA PHEN ####[facility] ,#### HEPATIC ####[address] Hepatitis Be Antigenon 03-25 Hepatitis Be Antigen Negative Normal Negative [facility] Comment on above: Performed By: #### H BV PCR, HBSAB, HEMOCHROM, HBCAB, HBeAG, HIV SCREEN, HBEAB, HAABT, HAAB, HCBIGM, HCV RX PCR, HDAB, HBSAG, CERULOP, ALPHA PHEN ####[facility] ,#### HEPATIC ####[address] Hepatitis C virus IgG Ab [Pr esence] in Serum or Plasma by ImmunoassayOrdered By: Imad Asaad on 03-25-2024 HCV IgG IA Ql Non-Reactive Non Reactive [facility] Hepatitis Delta AntibodyOrde red By: Imad Asaad on 03-25-2024 Hepatitis Delta Antibody Non-Reactive Normal [facility] Comment on above: Reference: Non React iveInterpretation: No laboratory evidence of hepatitis D virus (HDV) infection or past exposure to HDVPerforming Labs01: [facility], [address] [place] [id number] Dir: Prashanth Cat, PhD02: [address] [address] Dir: Girish Kay MDFor Inquiries, the physician may contact Branch: [phone] Lab: [phone] Result Comment: Reference: Non Reactive Interpretation: No laboratory evidence of hepatitis D virus (HDV) infection or past exposure to HDV Performing Labs 01: [address] [address] Dir: Prashanth Cat, PhD 02: [address] [address] Dir: Girish Kay MD For Inquiries, the physician may contact Branch: [phone] Lab: [phone] Performed By: #### H BV PCR, HBSAB, HEMOCHROM, HBCAB, HBeAG, HIV SCREEN, HBEAB, HAABT, HAAB, HCBIGM, HCV RX PCR, HDAB, HBSAG, CERULOP, ALPHA PHEN ####[facility] ,#### HEPATIC ####[facility] [place] [id number] [facility] Hereditary Hemochromatosis,Candice Garcia 03-25-2024 Hereditary Hemochromatosis Comment Normal . [facility] Comment on above: Result Comment: Resu lts: c.845G>A (p.Zdg063Esm) - Not Detected c.187C>G (p.Let35Xnw) - Detected, heterozygous c.193A>T (p.Egj09Reu) - Not Detected Not associated with increased [...] for patients who are homozygous for c.845G>A (p.Fru281Pbp) and have yet to experience clinical symptoms. Comments: The most common HFE variants associated with hereditary hemochromatosis are c.845G>A (p.Wts566Upe), c.187C>G (p.Eny11Old), c.193A>T (p.Wmi43Obr). While patients homozygous for c.845G>A (p.Njj210Src) are the most likely to present clinical symptoms, less than 10% develop clinically significant iron overload with tissue and organ damage. Genetic counseling is recommended to discuss the potential clinical implications of positive results, as well as recommendations for testing family members. Genetic Coordinators are available for health care providers to discuss results at [phone] Test Details: Three variants analyzed: c.845G>A (p.Qhe605Xxa), commonly referred to as C282Y c.187C>G (p.Nmd07Yfm), commonly referred to as H63D c.193A>T (p.Qsj22Fdv), commonly referred to as S65C Methods/Limitations: DNA [...] developed and its performance characteristics determined by [employer]. It has not been cleared or approved by the Food and Drug Administration. References: Jorden BR, Jin PC, Fernandez KV, Jarret LW, Michell ; [place] [employer] for the Study of Liver Diseases. Diagnosis and management of hemochromatosis: 2011 practice guideline by the [place] [employer] the [employer] of Liver Diseases. Hepatology. 2011 Jan;54(1):328-43. doi: 10.1002/hep.50469. PMID: 35194980; PMCID: EEH1487174. Dakota G, Paramjit P, Kina ASNCHEZ, Kathryn H, Rosemary O, Lucian S, Casey I, Mahad M, Lauren Morgan. [facility] best practice guidelines for the molecular genetic diagnosis of hereditary hemochromatosis (HH). Eur J Hum Alisha. 2016 Oct;24(4):479-95. doi: 10.1038/ejhg.2015.128. Epub 2014Jan 11. PMID: 78924572; PMCID: [id number]. Performed By: #### H BV PCR, HBSAB, HEMOCHROM, HBCAB, HBeAG, HIV SCREEN, HBEAB, HAABT, HAAB, HCBIGM, HCV RX PCR, HDAB, HBSAG, CERULOP, ALPHA PHEN ####[facility] ,#### HEPATIC ####[facility] Reviewed by: Comment Normal . [facility] Comment on above: Result Comment: Tim Ovalle, PhD FACMG Performed at: [address] [id number] Still Operator Brandy: Yolanda Lynne [facility], Phone: [phone] PERFORMED BY: [facility] [address] [place] [address] PATHOLOGIST STUDIO PRODUCER CECILY VILLAGRAN M.D. Performed By: #### H BV PCR, HBSAB, HEMOCHROM, HBCAB, HBeAG, HIV SCREEN, HBEAB, HAABT, HAAB, HCBIGM, HCV RX PCR, HDAB, HBSAG, CERULOP, ALPHA PHEN ####[facility] ,#### HEPATIC ####[place] [address] [address] No Panel InformationOrdered By: Ayanna Waldron on 03-25-2024 Hemochromatosis Note Comment . [facility] Comment on above: Eduardo Ovalle, PhD FA CMGPerformed at: TG - [facility] [id number] [place], [place] [id number] Director: Yolanda Lynne [facility], Phone: [phone] Hepatitis A IgM Antibody Negative Negative [facility] Comment on above: A negative anti-HAV IgM result suggests no recent orcurrent HAV infection. Hepatitis B Core IgM Antibody Negative Negative [facility] Comment on above: Performed at: [employer] [address] [id number] Director: Prashanth Cat PhD, Phone: [phone] Hepatitis B Core Total Antibody Positive Abnormal Negative [facility] Hepatitis B DNA Test Information Comment . [facility] Comment on above: The reportable range for this assay is 10 IU/mL to 1billion IU/mL.Performed at: [facility] - [facility] [address] [id number] Director: Girish Kay MD, Phone: [phone] Hepatitis C Interpretation Comment . [facility] Comment on above: Not infected with HC V unless early or acute infection issuspected (which may be delayed in an immunocompromisedindividual), or other evidence exists to indicate HCVinfection. Protein [Mass/volume] in Ser um or PlasmaOrdered By: Ayanna Waldron on 03-25-2024 Protein [Mass/Vol] 7.7 g/dL Normal 6.4-8.9 [facility] Comment on above: Performed By: #### H BV PCR, HBSAB, HEMOCHROM, HBCAB, HBeAG, HIV SCREEN, HBEAB, HAABT, HAAB, HCBIGM, HCV RX PCR, HDAB, HBSAG, CERULOP, ALPHA PHEN #### [facility] , #### HEPATIC #### [address] Qualitative serum or plasma hepatitis B virus e antibody by enzyme immunoassayOrdered By: Ayanna Waldron on 03-25-2024 HBV e Ab IA Ql Reactive Abnormal Negative [facility] Serum xtvtx-2-begrvrxjgib me asurementOrdered By: Ayanna Waldron on 03-25-2024 Alpha 1 antitrypsin [Mass/Vol] 119 mg/dL 101-187 [facility] Serum globulin measurement b y calculation (mass/volume)Ordered By: Ayanna Waldron on 03-25-2024 Globulin (S) [Mass/Vol] 3.0 g/dL [facility] Comment on above: Performed By: #### H BV PCR, HBSAB, HEMOCHROM, HBCAB, HBeAG, HIV SCREEN, HBEAB, HAABT, HAAB, HCBIGM, HCV RX PCR, HDAB, HBSAG, CERULOP, ALPHA PHEN #### [facility] , #### HEPATIC #### [facility] [address] Serum hepatitis B virus e an tigen detection by enzyme immunoassayOrdered By: Ayanna Waldron on 03-25-2024 HBV e Ag IA Ql Negative Negative [facility] Serum or plasma albumin/glob ulin mass ratioOrdered By: Ayanna Waldron on 03-25-2024 Albumin/Globulin [Mass ratio] 1.6 {ratio} [facility] Comment on above: Performed By: #### H BV PCR, HBSAB, HEMOCHROM, HBCAB, HBeAG, HIV SCREEN, HBEAB, HAABT, HAAB, HCBIGM, HCV RX PCR, HDAB, HBSAG, CERULOP, ALPHA PHEN #### [facility] , #### HEPATIC #### [facility] [address] Serum or plasma alpha 1 anti trypsin phenotyping identification by immunofixationOrdered By: Ayanna Waldron on 03-25-2024 Alpha 1 antitrypsin phenotyping Immunofixation Nom Mz . [facility] Comment on above: MM Phenotype is co nsidered to be normal , producingnormal serum levels of wxekc-0-tmtvlekj inhibitor andnot associated with clinical disease. Associated V5Dhnufv serum levels in other phenotypes and theirincidence [...] reference. Ranges used to confirm phenotype.Performed at: [facility] [address] [id number] Director: Prashanth Cat PhD, Phone: [phone] at: [facility] [address] [id number] Director: Girish Kay MD, Phone: [phone] Serum or plasma ceruloplasmi n measurement (mass/volume)Ordered By: Ayanna Waldron on 03-25-2024 Ceruloplasmin [Mass/Vol] 32.5 mg/dL High 16.0-31.0 [facility] Comment on above: Performed at: [facility] [id number] Director: Prashanth Cat PhD, Phone: [phone] Serum or plasma hepatitis B virus DNA measurement (units/volume) (viral load) by probOrdered By: Ayanna Waldron on 03-25-2024 HBV DNA CHAUNCEY+probe Qn Not detected . [facility] Serum or plasma hepatitis B virus DNA viral load by probe and target amplification meOrdered By: Ayanna Waldron on 03-25-2024 HBV DNA CHAUNCEY+probe [#/Vol] N/A [facility] HBV DNA CHAUNCEY+probe [Log units/Vol] See comment . [facility] Comment on above: Result Units: log10 IU/mLUnable to calculate result since non-numeric resultobtained for component test. Serum or plasma non-glucuron idated bilirubin measurement (mass/volume)Ordered By: Ayanna Waldron on 03-25-2024 Bilirubin.indirect [Mass/Vol] 0.8 mg/dL [facility] 36on 03-10-2024 36 Per liudmila Horne [...] notified and verbalized understanding. Felicity Bailon MA [facility] Office Visiton 03-10-2024 Follow-up visit [id number] Javier Nielsen 1965 M Date Provider Department Center 03/10/2024 71535-IBGEXIELISABETH PEREZ Family History Problem Relation Age of Onset Cancer Mother COPD Father Family Status - Relation Status Age at Mother Father Level of Service:33745 SD OFFICE/OUTPATIENT ESTABLISHED MOD [facility] 30 MIN Reason for Visit and Comments: Hypertension [829102] - Pt is here for a six to eight week follow up. [facility] MR head/brain wo/w conon MR head/brain wo/w con [facility] [place] [address] MRI Report Signed Patient: Ahsan Nielsen MR#: [id number] : 1965 Acct:[id number] Age/Sex: 58 / M ADM Date: 02/06/24 Loc: MR Room: Type: [facility] Attending Dr: Jamaica Borges DO [...] Rey Jr., D.O.02/06/2024 7:24 PM Dictation Location: [facility]--15 Transcribed By: [facility] 02/06/241923 Dictated By: Shiva Rey Jr, DO 02/06/241920 Signed By: 02/06/241923 Normal [facility] Office Visiton 01-19-2024 Follow-up visit [id number] Javier Nielsen A 1965 M Date Provider Department Center 01/19/2024 42895-LNYMIHELISABETH NGUYEN Family History Problem Relation Age of Onset Cancer Mother COPD Father Family Status - Relation Status Age at Mother Father Level of Service:63799 SD OFFICE/OUTPATIENT ESTABLISHED MOD MDM 30 MIN Normal [facility] 36on 01-15-2024 36 Regarding echo resul t from 01/07/2024: MD Michelle Shetty MA Please notify patient his echo appears to be normal. Continue current management. Thank you Attempted to call patient's home #. The automated system said this line was currently suspended. I then called the cell # twice and it was busy. Normal [facility] 36on 12-16-2023 36 Regarding lab result s from 12/12/2023: MD Michelle Shetty MA Notify patient that his lipids shows mildly elevated LDL cholesterol, follow low-fat diet. His TSH and a.m. cortisol level are normal Spoke with patient's and made her aware. Normal [facility] Orders Onlyon 12-11-2023 Orders Only [id number] Javier Nielsen A 1965 M Date Provider Department Center 12/11/2023 KAITLIN ROY Family History Problem Relation Age of Onset Cancer Mother COPD Father Family Status - Relation Status Age at Mother Father Normal [facility] Office Visiton 12-10-2023 Follow-up visit [id number] Javier Nielsen 1965 M Date Provider Department Center 12/10/2023 13728-UEISDBELISABETH NGUYEN Asim Champagne Family History Problem Relation Age of Onset Cancer Mother COPD Father Family Status - Relation Status Age at Mother Father Level of Service:53492 SD OFFICE/OUTPATIENT NEW MODERATE MDM 45 MINUTES Normal [facility] Family Medicine Office/Clini c Noteon 11-27-2018 Family [...] Guille Khan PA-C 11/27/18 15:46 EDT Normal [facility] .eGFRon 11-20-2018 eGFR AA >60 Normal >=60 [facility] Comment on above: Result Comment: Resu lt = 0-14.9 mL/min/1.73 m2 Kidney failure or Dialysis Result = 15-29 mL/min/1.73 m2 Severe decrease in GFR Result = 30-59 mL/min/1.73 m2 Moderate decrease in GFR Result >= 60 mL/min/1.73 m2 Normal or increased GFR Performed By: #### E GFR #### [address] [address] eGFR Non-AA >60 Normal >=60 [facility] Comment on above: Result Comment: Resu [...] Performed By: #### E GFR #### [address] [address] AMI 2Hron 11-20-2018 2 Hour Myoglobin 22.0 ng/mL Normal 17.4-105.7 [facility] Comment on above: Performed By: #### C BC #### [address] [address] Troponin I.cardiac [Mass/Vol] ng/mL Normal 0.00-0.03 [facility] Comment on above: Result Comment: An i ncreased Troponin-I value, in the absence of myocardial ischemia, may indicate other etiologies of cardiac damage. Performed By: #### C BC #### [address] [address] AMI Initon 11-20-2018 Initial Myoglobin 29.0 ng/mL Normal 17.4-105.7 [facility] Comment on above: Performed By: #### A MI1 #### [address] [address] Troponin I.cardiac [Mass/Vol] ng/mL Normal 0.00-0.03 [facility] Comment on above: Result Comment: An i ncreased Troponin-I value, in the absence of myocardial ischemia, may indicate other etiologies of cardiac damage. Performed By: #### A MI1 #### [address] [address] SYX7Uair 11-20-2018 6 Hour Myoglobin 27.0 ng/mL Normal 17.4-105.7 [facility] Comment on above: Performed By: #### C BC #### [address] [address] Troponin I.cardiac [Mass/Vol] ng/mL Normal 0.00-0.03 [facility] Comment on above: Result Comment: An i ncreased Troponin-I value, in the absence of myocardial ischemia, may indicate other etiologies of cardiac damage. Performed By: #### C BC #### [address] [address] Basic Metabolic Profileon Anion gap [Moles/Vol] 14 mmol/L Normal 7-17 [facility] Comment on above: Performed By: #### C [id number] #### [address] [address] Calcium [Mass/Vol] 8.7 mg/dL Normal 8.5-10.[address] [facility] Comment on above: Performed By: #### C D:[id number] #### [address] [address] Chloride [Moles/Vol] 105 mmol/L Normal 98-110 [facility] Comment on above: Performed By: #### C [id number] #### [address] [address] CO2 [Moles/Vol] 22 mmol/L Normal 22-32 [facility] Comment on above: Performed By: #### C [id number] #### [address] [address] Creatinine [Mass/Vol] 0.70 mg/dL Normal 0.61-1.24 [facility] Comment on above: Performed By: #### C D:[id number] #### [address] [address] Glucose [Mass/Vol] 100 mg/dL Normal 74-[address] [facility] Comment on above: Performed By: #### C D:[id number] #### [address] [address] Potassium [Moles/Vol] 4.4 mmol/L Normal 3.4-4.8 [facility] Comment on above: Performed By: #### C D:[id number] #### [address] [address] Sodium [Moles/Vol] 137 mmol/L Normal 133-[address] [facility] Comment on above: Performed By: #### C D:[id number] #### [address] [address] Urea nitrogen [Mass/Vol] 13 mg/dL Normal 8-26 [facility] Comment on above: Performed By: #### C D:[id number] #### [address] [address] Urea nitrogen/Creatinine [Mass ratio] 18.6 mg/mg Normal 10.0-20.0 [facility] Comment on above: Performed By: #### C D:[id number] #### [address] [address] CBC w/ Diffon 11-20-2018 Erythrocyte distribution width (RBC) [Ratio] 13.0 % Normal 11.6-14.8 [facility] Comment on above: Performed By: #### C BC #### [address] [address] Hematocrit (Bld) [Volume fraction] 46.3 % Normal 41.0-53.0 [facility] Comment on above: Performed By: #### C BC #### [address] [address] Hemoglobin (Bld) [Mass/Vol] 15.8 g/dL Normal 13.5-17.5 [facility] Comment on above: Performed By: #### C BC #### [address] [address] MCH (RBC) [Entitic mass] 32.5 pg Normal 27.0-35.0 [facility] Comment on above: Performed By: #### C BC #### [address] [address] MCHC (RBC) [Mass/Vol] 34.1 % Normal 31.0-37.0 [facility] Comment on above: Performed By: #### C BC #### [address] [address] MCV (RBC) [Entitic vol] 95.3 fL Normal 80.0-100.0 [facility] Comment on above: Performed By: #### C BC #### [address] [address] Platelet mean volume (Bld) [Entitic vol] 8.6 fL Normal 6.7-10.6 [facility] Comment on above: Performed By: #### C BC #### [address] [address] Platelets (Bld) [#/Vol] 202 x10*3/mcL Normal 150-350 [facility] Comment on above: Performed By: #### C BC #### [address] [address] RBC (Bld) [#/Vol] 4.86 x10*6/mcL Normal 4.30-5.80 [facility] Comment on above: Performed By: #### C BC #### [address] [address] WBC (Bld) [#/Vol] 12.8 x10*3/mcL High 4.5-11.0 [facility] Comment on above: Performed By: #### C BC #### [address] [address] Cardiology Consultationon Cardiology Consultation Chief Complaint dyspnea [...] BEDOLLA, Lincoln Flynn 11/20/18 16:18 EDT Normal [facility] Garbage Collector Progress Noteon 11-20-2018 Garbage Collector Progress Note CM met with patient before [...] call back from Dr. quintana medical secretary receptionist. Upon discussion, we reviewed patient listed as [...] job established. Refuses to speak to financial reporting consultant when CM offered. Offered self pay education pamphlet as well, pt refuses stating he will get it figured out. CM put financial assistance program in chart for Discharge. Electronically signed by Leidy Chapin 11/20/18 14:32 EDT Normal [facility] D-Dimeron 11-20-2018 Fibrin D-dimer FEU IA (Bld) [Mass/Vol] 0.34 mg/L feu Normal 0.00-0.49 [facility] Comment on above: Result Comment: Resu [...] assay. Performed By: #### D MARISOL #### [address] [address] Diff Autoon 11-20-2018 Baso Absolute 0.1 x10*3/mcL Normal 0.0-0.2 [facility] Comment on above: Performed By: #### . Automated Diff #### [address] [address] Basophils/100 WBC (Bld) 0.8 % Normal 0.0-1.2 [facility] Comment on above: Performed By: #### . Automated Diff #### [address] [address] Eos Absolute 0.2 x10*3/mcL Normal 0.0-0.4 [facility] Comment on above: Performed By: #### . Automated Diff #### [address] [address] Eosinophils/100 WBC (Bld) 1.9 % Normal 0.0-6.1 [facility] Comment on above: Performed By: #### . Automated Diff #### [address] [address] Lymphocytes (Bld) [#/Vol] 3.5 x10*3/mcL Normal 1.0-4.8 [facility] Comment on above: Performed By: #### . Automated Diff #### [address] [address] Lymphocytes/100 WBC (Bld) 27.3 % Normal 27.2-40.8 [facility] Comment on above: Performed By: #### . Automated Diff #### [address] [address] [place] Absolute 0.9 x10*3/mcL Normal 0.3-1.1 [facility] Comment on above: Performed By: #### . Automated Diff #### [address] [address] Monocytes/100 WBC (Bld) 6.9 % Normal 4.7-13.9 [facility] Comment on above: Performed By: #### . Automated Diff #### [place] [id number] Neutro Absolute 8.1 x10*3/mcL High 1.8-7.[address] [facility] Comment on above: Performed By: #### . Automated Diff #### [place] [id number] Neutro Auto 63.1 % Normal 47.2-70.8 [facility] Comment on above: Performed By: #### . Automated Diff #### [place] [id number] ED Clinical Summaryon 2018 ED Clinical Summary (Inserted Image. Ale ble to display) [place] [address] ED Clinical Summary Person Information Name: Ahsan Nielsen [facility] Age: 53 Years : 1965 Sex: Male PCP: Marital Status: Single Phone: Race: White Ethnicity: Not or Language: Estonian Visit Reason: Dyspnea; Chest pain - Cardiac Acuity: 2 Enc Type: Observation Med Service: Emergency Medicine Arrival: 11/20/2018 07:05:00 Discharge: LOS: 000 01:54 Checkin: 11/20/2018 07:05:00 Checkout: 11/20/2018 08:59:41 Dispo Type: Admitted to ICU Address: [address] [place] [address] Provider Notes: History of Present Illness Patient [...] range between ( 27.2 and 40.8 ) [place] Auto: 6.9 % -- Normal range between [...] range between ( 41.0 and 53.0 ) [place] Absolute: 0.9 x10 MCH: 32.5 pg -- [...] EDT, 11/20/18 8:34:00 EDT, Coronary Care Unit, eJn Bey DO Patient Education Information: [facility] Poison Help line: . [facility] Hotline: [place] Tobacco Quit Line: [place], [place]) [address]: [phone] [place], [place]) [address]: [phone] [facility] [address] [place], [place]: [phone] [facility] ED Note-Nursingon 11-20-2018 ED Note-Nursing Nursing Clinical Director obtained admi ssion room - CCU charge nurse requests 10 minutes before transport Electronically signed by Rachel Sandra 11/20/18 08:47 EDT [facility] ED Note-Physicianon 11-21-19 ED Note-Physician Chief [...] in this document, created by the medical dosimetrist for me, accurately reflects the services I [...] from someone other than the patient: Reviewed [facility] EMR to see if recent visits or hospitalizations. Review and summarized past medical records if pertinent and available in [employer]: Data Interpretation: I have have reviewed returned data from lab. Clinically important interpretation is: CBC is unremarkable Basic Metabolic panel with normal renal function, no significant abnormality Coags normal Initial cardiac enzymes negative d-d-marisol neg EKG: EKG time: 07 Rhythm:[normal sinus] Rate:88 [place]:[normal] QRS:81 QT interval:399 ST/T wave changes: No [...] 07:12 63.1 Lymph Auto 11/20/18 07:12 27.3 [place] Auto 11/20/18 07:12 6.9 Eos Auto 11/20/18 07:12 1.9 Basophil Auto 11/20/18 07:12 0.8 Neutro Absolute 11/20/18 07:12 8.1 High Lymph Absolute 11/20/18 07:12 3.5 [place] Absolute 11/20/18 07:12 0.9 Eos Absolute 11/20/18 [...] be removed. Signed By: Heaven BEDOLLA, Anisa Cesar Computerized Tomagraphy No qualifying data available (CT) Ultrasound No qualifying data available (Ultrasound) Magnetic Resonance Imaging No qualifying data available (MRI) Suad Jones Electronically signed by Ramy Dooley DO 11/20/2018 08:35 EDT Normal [facility] History and Physicalon 11-20 History and [...] 95.3 (11/20/18) Mean Platelet Volume: 8.6 (11/20/18) [place] Absolute: 0.9 (11/20/18) [place] Auto: 6.9 (11/20/18) Neutro Absolute: 8.1 (11/20/18) [...] Gee Jones MD 11/20/18 10:06 EDT Normal [facility] Inpatient Clinical Summaryon 11-20-2018 Inpatient Clinical Summary [facility] [address] [place] [address] [address] Clinical Summary Person Information Name: Ahsan Nielsen Age: 53 Years : 1965 Sex: Male PCP: Marital Status: Single Phone: PCP: Race: White Ethnicity: Not or Language: Estonian Visit Id: Visit Reason: Dyspnea; Chest pain - Cardiac Speciality: Acuity: Enc Type: Observation Med Service: Emergency Medicine Arrival: 11/20/2018 07:05:00 Discharge: Dispo Type: Admitted to ICU Address: [address] [place] [address] Diagnosis: 1:Chest pain; 2:Dyspnea; 3:Palpitations; 4:Hypertension Discharged [...] range between ( 27.2 and 40.8 ) [place] Auto: 6.9 % -- Normal range between [...] range between ( 41.0 and 53.0 ) [place] Absolute: 0.9 x10 MCH: 32.5 pg -- [...] Follow up: With: Address: When: Guille Khan [address] [place] [address], [address] [place] [phone] [employer] (1) 11/27/2018 15:00:00 Comments: Appointment Scheduled Type Location Start [facility] New Patient Visit 30 [facility] 11/27/2018 15:00:00 11/27/2018 15:30:00 Confirmed Normal [facility] NM CARDIOLITE W/EXER STRESSo n 11-20-2018 NM CARDIOLITE W/EXER STRESS Myocardial Perfusion Imaging Report Arnie Protocol Height: 178 cm (70.1 in) Weight: 68 kg (149.6 lb) Ordering Physician: Gee Jones Referring Physician: Gee Jonse Reading Physician: Lincoln Monk MD Indications: Chest [...] peak heart rate and blood pressure was [address] mm Hg/min. Stress ECG: The stress ECG [...] Electronically Signed in Other Vendor System) Normal [facility] PTon 11-20-2018 INR Coag (PPP) [Relative time] 0.9 {INR} Normal <=3.5 [facility] Comment on above: Result Comment: INR has no normal range. INR Therapeutic range is: 2.0-3.0 (AF, CVA, TIAs, DVT prophylaxis, acute DVT) 2.5-3.5 ([facility] heart valves, recurrent thrombosis/emboli) Performed By: #### P TINR #### [address] [address] PT Coag (PPP) [Time] 9.7 s Normal 9.2-11.7 [facility] Comment on above: Performed By: #### P TINR #### [address] [address] PTTon 11-20-2018 aPTT Coag (Bld) [Time] 24.2 s Normal 20.6-27.7 [facility] Comment on above: Performed By: #### P TT #### [address] [address] XR Chest 1 Viewon 11-20-2018 XR Chest [...] Signed, Electronically Signed in Other Vendor System) [facility] XR Chest 2 Viewson 9 XR [...] Signed, Electronically Signed in Other Vendor System) [facility] Cult,Urineon 10-25-2017 Cult,Urine Specimen Description .CLEAN CATCH URINE Performed at [address] [place] [address] ([phone] Special Requests NOT REPORTEDCulture NO GROWTH Performed at [address] [id number] [phone] Report Status FINAL 10/25/2017 [facility] Comment on above: Performed By: #### U RC ####[address] [phone] [place] [address] CBC with Diffon 10-24-2017 Abs. Basophil 0.05 k/uL Normal 0.00-0.20 [facility] Comment on above: Performed By: #### C DP, CP, LIP ####[address] [place] [address] Abs.Neutrophil (Seg) 5.37 k/uL Normal 1.50-8.10 [facility] Comment on above: Performed By: #### C DP, CP, LIP ####[address] [place] [address] Basophils/100 WBC Auto (Bld) 1 % Normal 0-2 [facility] Comment on above: Performed By: #### C DP, CP, LIP ####[address] [place] [address] Eosinophils 0.57 10*3/uL High 0.00-0.44 [facility] Comment on above: Performed By: #### C DP, CP, LIP ####[address] [place] [address] Eosinophils/100 leukocytes 7 % High 1-4 [facility] Comment on above: Performed By: #### C DP, CP, LIP ####[address] [place] [address] Erythrocyte distribution width Auto Ratio (RBC) 13.4 % Normal 11.8-14.4 [facility] Comment on above: Performed By: #### C DP, CP, LIP ####[address] [place] [address] Erythrocytes (RBC) 0.0 per 100 WBC Normal 0.0 [facility] Comment on above: Performed By: #### C DP, CP, LIP ####[address] [place] [address] Erythrocytes (RBC) 5.69 10*6/uL Normal 4.21-5.77 [facility] Comment on above: Performed By: #### C DP, CP, LIP ####[address] , [place] [address] Granulocytes/100 WBC (Bld) 0.04 k/uL Normal 0.00-0.30 [facility] Comment on above: Result Comment: Perf ormed at [address] [place], [place] [address] Performed By: #### C DP, CP, LIP ####[address] , [place] [address] Hematocrit (HCT) 51.0 % High 40.7-50.3 [facility] Comment on above: Performed By: #### C DP, CP, LIP ####[address] , [place] [address] Hemoglobin mass conc (Bld) 18.0 g/dL High 13.0-17.0 [facility] Comment on above: Performed By: #### C DP, CP, LIP ####[address] , [place] [address] Immature granulocytes #/vol (Bld) 1 % High 0 [facility] Comment on above: Performed By: #### C DP, CP, LIP ####[address] [place] [address] Lymphocytes 1.35 10*3/uL Normal 1.10-3.70 [facility] Comment on above: Performed By: #### C DP, CP, LIP ####[address] [place] [address] Lymphocytes/100 leukocytes 15 % Low 24-43 [facility] Comment on above: Performed By: #### C DP, CP, LIP ####[address] [place] [address] MCH 31.6 pg Normal 25.2-33.5 [facility] Comment on above: Performed By: #### C DP CP, LIP ####[address] , [place] [address] MCHC mass conc (RBC) 35.3 g/dL High 28.4-34.8 [facility] Comment on above: Performed By: #### C DP CP, LIP ####[address] [place] [address] MCV 89.6 fL Normal 82.6-102.9 [facility] Comment on above: Performed By: #### C SANDRA CP, LIP ####[address] [place] [address] Monocytes 1.36 10*3/uL High 0.10-1.20 [facility] Comment on above: Performed By: #### C SANDRA CP, LIP ####[address] , [place] [address] Monocytes/100 leukocytes 16 % High 3-12 [facility] Comment on above: Performed By: #### C SANDRA CP, LIP ####[address] [place] [address] Neutrophil (Seg) 61 % Normal 36-65 [facility] Comment on above: Performed By: #### C DP CP, LIP ####[address] [place] [address] Platelet mean volume (PMV) 10.5 fL Normal 8.1-13.5 [facility] Comment on above: Performed By: #### C DP CP, LIP ####[address] [place] [address] Platelets 186 10*3/uL Normal 138-453 [facility] Comment on above: Performed By: #### C DP, CP, LIP ####[address] [place] [address] WBC (Leukocytes) 8.7 10*3/uL Normal 3.5-11.3 [facility] Comment on above: Performed By: #### C DP, CP, LIP ####[address] [place] [address] Auto Diff Performed NOT REPORTED Normal [facility] Comment on above: Performed By: #### C DP, CP, LIP ####[address] [place] [address] Erythrocyte morphology NOT REPORTED Normal [facility] Comment on above: Performed By: #### C DP, CP, LIP ####[address] [place] [address] Platelets NOT REPORTED Normal [facility] Comment on above: Performed By: #### C DP, CP, LIP ####[address] [place] [address] WBC Morphology NOT REPORTED Normal [facility] Comment on above: Performed By: #### C DP, CP, LIP ####[address] [place] [address] Comp Metabolic Profon 2017 (cont.) Normal [facility] Comment on above: Result Comment: Aver age GFR for 50-59 years old: 93 mL/min/1.73sq mChronic Kidney Disease: <60 mL/min/1.73sq mKidney failure: <15 mL/min/1.73sq meGFR calculated using average adult body mass. Additional eGFR calculator available at:http://www.Issuu.com/multiple_crcl_2012.htm Performed By: #### C DP, CP, LIP ####[address] [place] [address] Alanine aminotransferase (ALT) 18 U/L Normal 5-41 [facility] Comment on above: Performed By: #### C DP, CP, LIP ####[address] [place] [address] Albumin 4.2 g/dL Normal 3.5-5.2 [facility] Comment on above: Performed By: #### C DP, CP, LIP ####[address] [place] [address] Albumin/Globulin Ratio 1.2 {ratio} Normal 1.0-2.5 [facility] Comment on above: Performed By: #### C DP, CP, LIP ####[address] [place] [address] Alkaline Phos 74 U/L Normal 40-129 [facility] Comment on above: Performed By: #### C DP, CP, LIP ####[address] [place] [address] Anion gap 16 mmol/L Normal 9-17 [facility] Comment on above: Performed By: #### C DP, CP, LIP ####[address] [place] [address] Aspartate aminotransferase (AST) 24 U/L Normal <40 [facility] Comment on above: Performed By: #### C DP, CP, LIP ####[address] [place] [address] Bilirubin Ql (U) 0.64 mg/dL Normal 0.3-1.2 [facility] Comment on above: Performed By: #### C DP, CP, LIP ####[address] [place] [address] BUN/CRE Ratio 15 Normal 9-20 [facility] Comment on above: Performed By: #### C DP, CP, LIP ####[address] [place] [address] Calcium 9.2 mg/dL Normal 8.6-10.4 [facility] Comment on above: Performed By: #### C DP, CP, LIP ####[address] [place] [address] Chloride 91 mmol/L Low 98-107 [facility] Comment on above: Performed By: #### C DP, CP, LIP ####[address] [place] [address] CO2 23 mmol/L Normal 20-31 [facility] Comment on above: Performed By: #### C DP, CP, LIP ####[address] [place] [address] Creatinine 0.94 mg/dL Normal 0.70-1.20 [facility] Comment on above: Performed By: #### C DP, CP, LIP ####[address] [place] [address] eGFR (non-black) mL/min/{1.73_m2} Normal >[address] [facility] Comment on above: Performed By: #### C DP, CP, LIP ####[address] [place] [address] Glucose mass conc 113 mg/dL High 70-99 [facility] Comment on above: Performed By: #### C DP, CP, LIP ####[address] [place] [address] Potassium molar conc 4.8 mmol/L Normal 3.7-5.3 [facility] Comment on above: Performed By: #### C DP, CP, LIP ####[address] [place] [address] Protein 7.6 g/dL Normal 6.4-8.3 [facility] Comment on above: Performed By: #### C DP, CP, LIP ####[address] [place] [address] Sodium 130 mmol/L Low 135-144 [facility] Comment on above: Performed By: #### C DP, CP, LIP ####[address] [place] [address] Staging: Normal [facility] Comment on above: Result Comment: Stag e 1: Some kidney damage normal GFRStage 2: Mild kidney damage GFR 60-89Stage 3: Moderate kidney damage GFR 30-59Stage 4: Severe kidney damage GFR 15-29Stage 5: Severe kidney damage GFR <15ESRD - chronic treatment by dialysis or transplantPerformed at [address] [place] [address] Performed By: #### C DP, CP, LIP ####[address] [place] [address] Urea nitrogen 14 mg/dL Normal 6-20 [facility] Comment on above: Performed By: #### C DP, CP, LIP ####[address] [place] [address] Lipaseon 10-24-2017 Lipase 27 U/L Normal 13-60 [facility] Comment on above: Result Comment: Perf ormed at [address] [place] [address] Performed By: #### C DP, CP, LIP ####[address] [place] [address] Urinalysis w/ Microon 2017 ----- Normal [facility] Comment on above: Performed By: #### U AMIC ####[address] [place] [address] Acetaminophen mass conc 1+ Abnormal NEG [facility] Comment on above: Performed By: #### U AMIC ####[address] [place] [address] Bilirubin (direct) Negative Normal NEG [facility] Comment on above: Performed By: #### U AMIC ####[address] [place] [address] Hemoglobin mass conc (Bld) Negative Normal NEG [facility] Comment on above: Performed By: #### U AMIC ####[facility] [place] [address] Nitrite,Ur Negative Normal NEG [facility] Comment on above: Performed By: #### U AMIC ####[facility] [place] [address] Turbidity CLEAR Normal CLEAR [facility] Comment on above: Performed By: #### U AMIC ####[address] [place] [address] Urine WBC's 0 TO 2 Normal 0-5 [facility] Comment on above: Performed By: #### U AMIC ####[address] [place] [address] Urine, color YELLOW Normal YEL [facility] Comment on above: Performed By: #### U AMIC ####[address] [place] [address] Urine, epithelial cells in sediment 0 TO 2 Normal 0-5 [facility] Comment on above: Result Comment: Perf ormed at [facility] [address] [place] [address] Performed By: #### U AMIC ####[address] [place] [address] Urine, erythrocytes 0 TO 2 Normal 0-2 [facility] Comment on above: Performed By: #### U AMIC ####[address] [place] [address] Urine, glucose presence Negative Normal NEG [facility] Comment on above: Performed By: #### U AMIC ####[address] [place] [address] Urine, leukocyte esterase presence Negative Normal NEG [facility] Comment on above: Performed By: #### U AMIC ####[address] [place] [address] Urine, pH 6.5 [pH] Normal 5.0-9.0 [facility] Comment on above: Performed By: #### U AMIC ####[address] [place] [address] Urine, protein presence Negative Normal NEG [facility] Comment on above: Performed By: #### U AMIC ####[address] [place] [address] Urine, specific gravity <1.005 Low 1.010-1.02 0 [facility] Comment on above: Performed By: #### U AMIC ####[address] [place] [address] Urobilinogen,Ur Normal Normal NORM [facility] Comment on above: Performed By: #### U AMIC ####[address] [place] [address] Comment NOT REPORTED Normal [facility] Comment on above: Performed By: #### U AMIC ####[address] [place] [address] Epithelial, Renal NOT REPORTED Normal 0 [facility] Comment on above: Performed By: #### U AMIC ####[address] [place] [address] Mucus Strands NOT REPORTED Normal NONE [facility] Comment on above: Performed By: #### U AMIC ####[address] [place] [address] Other Observations NOT REPORTED Normal NREQ [facility] Comment on above: Performed By: #### U AMIC ####[address] [place] [address] Trichomonas NOT REPORTED Normal NONE [facility] Comment on above: Performed By: #### U AMIC ####[address] [place] [address] Urine, amorphous sediment presence in sediment NOT REPORTED Normal NONE [facility] Comment on above: Performed By: #### U AMIC ####[address] [place] [address] Urine, bacteria in sediment NOT REPORTED Normal NONE [facility] Comment on above: Performed By: #### U AMIC ####[address] [place] [address] Urine, casts in sediment NOT REPORTED Normal [facility] Comment on above: Performed By: #### U AMIC ####[address] [place] [address] Urine, crystals in sediment NOT REPORTED Normal NONE [facility] Comment on above: Performed By: #### U AMIC ####[address] [place] [address] Urine, yeast presence in sediment NOT REPORTED Normal NONE [facility] Comment on above: Performed By: #### U AMIC ####[address] [place] [address] Discharge Summaryon 03-11-20 17 HIM IP Note 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 Normal [facility] Vital Signs Date Time Vital Sign Value Performing Clinician Gerard freeman 06-15-2024 15:57-0500 Body height 177.8 cm Michelle Banuelos [employer]IR[employer] Work Phone: [facility] 06-15-2024 15:57-0500 Body mass index (BMI) [Ratio] 25.54 kg/m2 Michelle Banuelos [employer]IR[employer] Work Phone: [facility] 06-15-2024 15:57-0500 Body weight 80.74 kg Michelle Banuelos [employer]IR[employer] Work Phone: [facility] 06-15-2024 15:57-0500 Diastolic blood pressure 64 mm[Hg] Michelle Banuelos [employer]IR[employer] Work Phone: [facility] 06-15-2024 15:57-0500 Heart rate 69 /min Michelle Banuelos [employer]IR[employer] Work Phone: [facility] 06-15-2024 15:57-0500 SaO2% (BldA) [Mass fraction] 96 % Michelle Banuelos [employer]IR[employer] Work Phone: [facility] 06-15-2024 15:57-0500 Systolic blood pressure 116 mm[Hg] Michelle Banuelos [employer]IR[employer] Work Phone: [facility] 03-25-2024 10:10-0400 Body height 177.8 cm PRIMO Jean Work Phone: [facility] 03-25-2024 10:10-0400 Body mass index (BMI) [Ratio] 25.1 kg/m2 PRIMO Corbin McNeal Work Phone: [facility] 03-25-2024 10:10-0400 Body weight 79.37 kg PRIMO Jean Work Phone: [facility] 03-23-2024 16:25-0400 Body height 177.8 cm Michelle Banuelos [employer]IR[employer] Work Phone: [facility] 03-23-2024 16:25-0400 Body mass index (BMI) [Ratio] 25.34 kg/m2 Michelle Banuelos GIR[employer] Work Phone: [facility] 03-23-2024 16:25-0400 Body weight 80.11 kg Michelle Banuelos GIR[employer] Work Phone: [facility] 03-23-2024 16:25-0400 Diastolic blood pressure 76 mm[Hg] Michelle Banuelos GIR[employer] Work Phone: [facility] 03-23-2024 16:25-0400 Heart rate 88 /min Michelle Banuelos [employer]IR[employer] Work Phone: [facility] 03-23-2024 16:25-0400 SaO2% (BldA) [Mass fraction] 96 % Michelle Banuelos GIR[employer] Work Phone: [facility] 03-23-2024 16:25-0400 Systolic blood pressure 126 mm[Hg] Michelle Banuelos GIRLS [employer] Work Phone: [facility] 02-24-2024 12:45-0400 Body height 177.8 cm Michelle Banuelos GIRLS [employer] Work Phone: [facility] 02-24-2024 12:45-0400 Body mass index (BMI) [Ratio] 25.31 kg/m2 Michelle Banuelos [employer]IR[employer] Work Phone: [facility] 02-24-2024 12:45-0400 Body weight 80.02 kg Michelle Banuelos [employer]IR[employer] Work Phone: [facility] 02-24-2024 12:45-0400 Diastolic blood pressure 74 mm[Hg] Michelle Banuelos [employer]IR[employer] Work Phone: [facility] 02-24-2024 12:45-0400 Heart rate 58 /min Michelle Banuelos [employer]IR[employer] Work Phone: [facility] 02-24-2024 12:45-0400 SaO2% (BldA) [Mass fraction] 90 % Michelle Banuelos GIR[employer] Work Phone: [facility] 02-24-2024 12:45-0400 Systolic blood pressure 122 mm[Hg] Michelle Banuelos GIRLS [employer] Work Phone: [facility] Healthcare Encounters Encounter Date Encounter Type Care Provider Facility Start: 08-25-2024 End: 08-25-2024 ambulatory [facility] Start: 07-12-2024 End: 07-12-2024 ambulatory [facility] Start: 06-15-2024 End: 06-15-2024 Office outpatient visit 15 minutes Michelle Banuelos [employer]IR[employer] Work Phone: [facility] Comment on above: Loss of consciousnes s (CMS/HCC) (Primary Dx); Orthostatic hypotension; Episodic migraine (CMS/HCC); Abnormal finding on MRI of brain; History of hepatitis B; Numbness of right lower extremity Start: 06-15-2024 End: 06-15-2024 ambulatory MICHELLE BANUELOS Not Available Start: 05-05-2024 End: 05-05-2024 Patient encounter procedure REVENUE ACCOUNTING MANAGER Emerald Miranda Work Phone: [facility] [place] Work Phone: Start: 05-05-2024 End: 05-05-2024 ambulatory REVENUE ACCOUNTING MANAGER Emerald Miranda Work Phone: [facility] Work Phone: Start: 04-03-2024 End: 04-03-2024 Patient encounter procedure REVENUE ACCOUNTING MANAGER Emerald Miranda Work Phone: [facility] [place] Work Phone: Start: 04-03-2024 End: 04-03-2024 ambulatory REVENUE ACCOUNTING MANAGER Emerald Miranda Work Phone: [facility] Work Phone: Start: 03-31-2024 End: 03-31-2024 Patient encounter procedure REVENUE ACCOUNTING MANAGER Emerald Miranda Work Phone: [facility]Dig[facility] Work Phone: Start: 03-31-2024 End: 03-31-2024 ambulatory REVENUE ACCOUNTING MANAGER Emerald Miranda Work Phone: [facility] Work Phone: Start: 03-29-2024 End: 03-29-2024 ambulatory MICEHLLE BANUELOS Not Available Start: 03-25-2024 End: 03-25-2024 Patient encounter procedure REVENUE ACCOUNTING MANAGER Emerald Miranda Work Phone: [facility] [place] Work Phone: Start: 03-25-2024 End: 03-25-2024 ambulatory REVENUE ACCOUNTING MANAGER Emerald Miranda Work Phone: [facility] Work Phone: Start: 03-25-2024 End: 03-25-2024 Patient encounter procedure REVENUE ACCOUNTING MANAGER Emerald Miranda Work Phone: [facility] Work Phone: Start: 03-23-2024 End: 03-23-2024 ambulatory MICHELLE BANUELOS Not Available Start: 03-23-2024 End: 03-23-2024 Office outpatient visit 25 minutes Michelle Bnauelos GIRLS [employer] Work Phone: [facility] [facility] Comment on above: Loss of consciousnes s (CMS/HCC) (Primary Dx); Orthostatic hypotension; Abnormal finding on MRI of brain; History of hepatitis B; Numbness of right lower extremity Start: 03-23-2024 End: 03-23-2024 Bamboo flowsheet Michelle Banuelos [employer]IR[employer] Work Phone: [facility] [place] [facility] Start: 03-23-2024 End: 03-23-2024 Bamboo flowsheet Michelle Banuelos [employer]IR[employer] Work Phone: [facility] [address] [facility] Start: 03-10-2024 End: 03-10-2024 ambulatory [facility] Start: 03-04-2024 End: 03-04-2024 ambulatory JAMAICA BORGES Not Available Start: 03-01-2024 End: 03-01-2024 ambulatory MICHELLE BANUELOS Not Available Start: 02-24-2024 End: 02-24-2024 Bamboo flowsheet Michelle Banuelos [employer]IR[employer] Work Phone: [facility] [place] [facility] Start: 02-24-2024 End: 02-24-2024 Bamboo flowsheet Michelle Banuelos GIRLS [employer] Work Phone: [facility] [place] [facility] Start: 02-24-2024 End: 02-24-2024 Office outpatient visit 25 minutes Michelle Banuelos GIR[employer] Work Phone: [facility] Comment on above: Loss of consciousnes s (CMS/HCC) (Primary Dx); Orthostatic hypotension; Abnormal finding on MRI of brain; Numbness of right lower extremity; History of hepatitis B Start: 02-24-2024 End: 02-24-2024 ambulatory MICHELLE BANUELOS Not Available Start: 02-06-2024 End: 02-06-2024 Patient encounter procedure REVENUE ACCOUNTING MANAGER Emerald Miranda Work Phone: [facility] [place] Work Phone: Start: 02-06-2024 End: 02-06-2024 ambulatory REVENUE ACCOUNTING MANAGER Emerald Miranda Work Phone: [facility] Work Phone: Start: 02-03-2024 End: 02-03-2024 ambulatory CHRISTBELLAER SHYANN Not Available Start: 02-02-2024 End: 02-02-2024 ambulatory MICHELLE BANUELOS Not Available Start: 01-20-2024 End: 01-20-2024 ambulatory MICHELLE BANUELOS Not Available Start: 01-19-2024 End: 01-19-2024 ambulatory [facility] Start: 12-24-2023 End: 12-24-2023 ambulatory JAMIACA MONTESETT Not Available Start: 12-23-2023 End: 12-23-2023 ambulatory CHRISTBELLAER SHYANN Not Available Start: 12-15-2023 Non-patient / Non-visit PRIMO Corbin McNeal Work Phone: [facility] Work Phone: Start: 12-10-2023 End: 12-10-2023 ambulatory [facility] Start: 11-20-2018 End: 11-20-2018 Patient encounter procedure GEE JONES Facility:[facility] Start: 10-24-2017 End: 10-24-2017 Emergency department patient visit [facility] Start: 12-27-2016 End: 12-28-2016 Ambulatory [facility] Procedures Date Procedure Procedure Detail Performing Clinician Start: 04-03-2024 Ultrasonography of liver REVENUE ACCOUNTING MANAGER Emerald Miranda Work Phone: Start: 03-31-2024 Ultrasound elastogra phy of liver REVENUE ACCOUNTING MANAGER Emerald Miranda Work Phone: Start: 02-06-2024 MRI of head REVENUE ACCOUNTING MANAGER Emerald Miranda Work Phone: Start: 10-24-2017 NURSING COMMUNICATION S RAINA LONG Start: 10-24-2017 URINALYSIS WITH MICROSCOPIC ANABEL LONG Start: 10-24-2017 URINE CULTURE ANABEL LACY Start: 10-24-2017 CBC WITH AUTO DIFFERENTIAL ANABEL LONG Start: 10-24-2017 COMPREHENSIVE METABO LIC PANEL ANABEL LONG Start: 10-24-2017 LIPASE ANABEL DELGADILLO Start: 10-24-[address] ALEXANDRA LONG Plan of Treatment Date Care Activity Detail Author Start: 12-21-2024 End: 12-21-2024 Patient encounter procedure 12/21/2024 9:40 AM EDT Office Visit [facility] [address] [facility] [place] [address] Michelle Banuelos NP [address] [place] [id number] [facility] [place] [address] Start: 06-15-2024 End: 06-15-2024 Patient encounter procedure 06/15/2024 4:00 PM EST Office Visit [facility] [address] [place] [address] Michelle Banuelos NP [address] [place] [id number] [facility] [place] [facility] Start: 05-05-2024 MR Abdomen WO and W contrast IV [facility] Start: 05-05-2024 MRI of abdomen with contrast MR abdomen wo/w con [facility] Start: 03-31-2024 [facility] Start: 03-29-2024 End: 03-29-2024 Clinical Support 03/29/2024 8:40 AM EDT [facility] [address] [place] [address] [facility] Start: 03-25-2024 Ceruloplasmin [Mass/volume] in Serum or Plasma [facility] Start: 03-25-2024 Hepatitis A virus Ab [Presence] in Serum by Immunoassay [facility] Start: 03-25-2024 Hepatitis A virus antibody, IgM type [facility] Start: 03-25-2024 Hepatitis B core antibody measurement [facility] Start: 03-25-2024 Hepatitis B core antibody measurement, IgM type [facility] Start: 03-25-2024 Hepatitis B virus e Ab [Presence] in Serum or Plasma by Immunoassay [facility] Start: 03-25-2024 Hepatitis B virus e Ag [Presence] in Serum or Plasma by Immunoassay [facility] Start: 03-25-2024 Hepatitis B virus surface Ab [Presence] in Serum [facility] Start: 03-25-2024 Measurement of Hepat itis delta virus antibody [facility] Start: 03-25-2024 [facility] Start: 03-23-2024 End: 03-23-2024 Patient encounter procedure 03/23/2024 4:20 PM EDT Office Visit [facility] [address] [place] [phone] Michelle Banuelos, GIRLS TENNIS COACH [address] [place] [phone] [facility] Start: 03-23-2024 End: 03-23-2025 US.doppler Carotid arteries - bilateral Vascular US carotid artery duplex bilateral Imaging Routine Loss of consciousness (CMS/HCC) Expected: 03/23/2024 (Approximate), Expires: 03/23/2025 [facility] Work Phone: Comment on above: Expected: 03/23/2024 (Approximate), Expires: 03/23/2025 Start: 03-04-2024 End: 03-04-2024 Clinical Support 03/04/2024 8:00 AM EDT Clinical Support [facility] [address] [address] [facility] Start: 03-01-2024 End: 03-01-2024 Professional / ancillary services management 03/01/2024 2:45 PM EDT Ancillary Procedure [facility] [address] [phone] [facility] Start: 02-24-2024 End: 02-23-2025 Home EEG 36-84 Hours Home EEG 36-84 Hours Neurology Routine Loss of consciousness (CMS/HCC) Expected: 02/24/2024 (Approximate), Expires: 02/23/2025 [facility] Work Phone: Comment on above: Expected: 02/24/2024 (Approximate), Expires: 02/23/2025 Start: 02-24-2024 End: 02-24-2024 Patient encounter procedure 02/24/2024 1:00 PM EDT Office Visit [facility] [address] [place] [address] Michelle Banuelos, NEL [address] [place] [address] [facility] Comment on above: Arrived Alpha 1 antitrypsin [Mass/volume] in Serum or Plasma [facility] Alpha 1 antitrypsin phenotyping [Identifier] in Serum or Plasma by Immunofixation [facility] Hepatitis B virus DN A [#/volume] (viral load) in Serum or Plasma by CHAUNCEY with probe detection [facility] Hepatitis B virus DN A [log units/volume] (viral load) in Serum or Plasma by CHAUNCEY with probe detection [facility] Hepatitis B virus DN A [Units/volume] (viral load) in Serum or Plasma by CHAUNCEY with probe detection [facility] Hepatitis B virus surface Ag [Presence] in Serum or Plasma by Immunoassay [facility] Hepatitis C virus Ig G Ab [Presence] in Serum or Plasma by Immunoassay [facility] HFE gene mutations f ound [Identifier] in Blood or Tissue by Molecular genetics method Nominal [facility] HIV 1+2 Ab+HIV1 p24 Ag [Presence] in Serum or Plasma by Immunoassay [facility] Payers Date Payer Category Payer Medicaid [facility] MEDICAID [facility] MEDICAID [id number] 2020-Present [address] [place] [address] [id number] 2020 Medicaid (Managed Care) [employer] Member Subscriber Plan / Payer (Effective 2020-Present) Name: Ahsan Nielsen Relation to Subscriber: Self Name: Ahsan Nielsen Payer ID: Not on file Group ID: Not on file Type: Not on file Address: [place] [id number] 2018 Self-pay 2016 Unknown [id number] 2015 Unknown [id number] 1964 Unknown [id number] 1964 Unknown [id number] 1964 Unknown [id number] 1964 Unknown [id number] [id number]. 1259 1965 Unknown [id number] 2.16840.1.116536.3.579.2. 9 1965 Unknown [id number] 2.16.840.1.833007.3.579.2. 1259 1964 Unknown [id number] 2.16.840.1.925064.3.579.2. 1259 1964 Unknown [id number] 2.16.840.1.981908.3.579.2. 1259 1964 Unknown [id number] 2.16.840.1.475881.3.579.2. 1258 1964 Unknown [id number] 2.16.840.1.002254.3.579.2. 1259 1964 Unknown [id number] 2.16840.1.516693.3.579.2. 1258 1964 Unknown [id number] 2.16.840.1.991513.3.579.2. 1259 Unknown [id number] 2.16.840.1.217852.3.579.2. 531 Unknown [id number] 2.16.840.1.109831.3.579.2. 531 Unknown [id number] 2.16.840.1.985891.3.579.2. 531 Unknown [id number] 2.16.840.1.486395.3.579.2. 531 Unknown [id number] 2.16.840.1.071201.3.579.2. 531 Social History Date Type Detail Facility Tobacco smoking stat [facility] Unknown if ever smoked [facility] Work Phone: Start: 1965 Sex Assigned At Male F [facility] Start: 1979 End: 03-23-2024 Tobacco smoking status DEIS Smokes tobacco daily [facility] Start: 1979 End: 03-21-2024 History of tobacco use Cigarette Smoker [facility] Start: 01-20-2024 End: 03-23-2024 Tobacco use and exposure Smokeless tobacco non-user [facility] Start: 01-20-2024 End: 02-24-2024 Alcoholic beverage intake Current drinker of alcohol (finding) [facility] Start: 01-20-2024 End: 02-24-2024 Alcoholic beverage intake [facility] Start: 01-20-2024 End: 02-24-2024 Tobacco use panel [facility] Start: 1965 Sex assigned at Not on file [facility] Goals Date Patient Goal Desired Activity /State Clinical Notes 12-10-2023 to 08-25-2024 Michelle Banuelos, NEL - 06/15/2024 4:00 PM EST Note Date & Type Note Facility 08-25-2024 Note [facility] Note Reason for cardiology [...] is a longtime smoker. He presented to [facility] last month for syncope. He [...] Do not cr (more content not included)... [facility] 07-12-2024 Note [facility] Note Reason for cardiology [...] is a longtime smoker. He presented to [facility] last month for syncope. He [...] kg (178 lb) (more content not included)... [facility] 06-15-2024 History of Present illness [...] wrist extensors , wrist flexor , and cellulose insulation helper strength 5/5. LUE strength deltoid , biceps , triceps , wrist extensors , wrist flexor , and cellulose insulation helper strength 5/5. RLE strength iliopsoas, quadriceps, tibialis [...] reflex 2+. LLE Knee reflex 2+. Coordination: Dcvcqp-ho-tomh testing normal. Rapid alternating movements are normal. Gait: Normal. Review and summary of old records: Carotid ultrasound at [facility] on 03/29/24: No hemodynamically significant stenosis noted. 1-29% stenosis right and left ICA. Antegrade flow right and left VA. Normal triphasic waveforms noted right and left SCA. Focal area of calcific plaque in the proximal ICAs bilaterally. Ambulatory EEG in 02/2024: Normal 65-hour ambulatory EEG. Orthostatic vital signs at [facility] on 02/24/2024: Positive. Laying - blood pressure 108/71, heart rate 57 beats/min Sitting - blood pressure 144/82, heart rate 59 beats/min Standing for 3 minutes - blood pressure 120/72, heart rate 62 beats/min MRI of the brain w and w/o contrast at [facility] on 02/06/2024: A punctate microhemorrhage seen involving left parietal lobe on the GRE imaging. Cortical atrophy with mild chronic microvascular ischemic changes which appeared to extend into the kylee. EMG of the right lower extremity at [facility] on 02/03/2024: Normal. No evidence of a [...] week, and these are effectively relieved by qftj-mjg-evsccre Tylenol. He denies any atypical headache features, [...] new or worsening symptoms. Michelle Banuelos NP [facility] documented in this encounter [facility] 03-25-2024 Evaluation note Authored March [...] for ultrasound liver -Will arrange for [employer] [facility] Work Phone: 1(110) 802-964709-17-2024 History of Present illness Narrative* Michelle Banuelos [...] wrist extensors , wrist flexor , and cellulose insulation helper strength 5/5. LUE strength deltoid , biceps , triceps , wrist extensors , wrist flexor , and cellulose insulation helper strength 5/5. RLE strength iliopsoas, quadriceps, tibialis [...] reflex 2+. LLE Knee reflex 2+. Coordination: Euwery-iz-mqfq testing normal. Rapid alternating movements are normal. Gait: Normal. Review and summary of old records: Ambulatory EEG in 02/2024: Normal 65-hour ambulatory EEG. There was no epileptiform activity recorded during the record. There were no seizures recorded during the record. Orthostatic vital signs at [facility] on 02/24/2024: Positive. Laying - blood pressure 108/71, heart rate 57 beats/min Sitting - blood pressure 144/82, heart rate 59 beats/min Standing for 3 minutes - blood pressure 120/72, heart rate 62 beats/min MRI of the brain w and w/o contrast at [facility] on 02/06/2024: A punctate microhemorrhage seen involving left parietal lobe on the GRE imaging. Cortical atrophy with mild chronic microvascular ischemic changes which appeared to extend into the kylee. EMG of the right lower extremity at [facility] on 02/03/2024: Normal. No evidence of a [...] visit: Loss of consciousness (CMS/HCC) The patient reports episodic loss of consciousness [...] NP [facility] documented in this [facility]09-17-2024 Instructions* Patient Instructions* Michelle Banuelos NP - 03/23/2024 4:20 PM EDT - Carotid ultrasound documented in this [facility]09-04-[facility] Reason for [...] is a longtime smoker. He presented to [facility] last month for syncope. He [...] and symmetric in b (more content not included)...[facility]08-20-2024 History of Present illness Narrative* [...] wrist extensors , wrist flexor , and cellulose insulation helper strength 5/5. LUE strength deltoid , biceps , triceps , wrist extensors , wrist flexor , and cellulose insulation helper strength 5/5. RLE strength iliopsoas, quadriceps, tibialis [...] reflex 2+. LLE Knee reflex 2+. Coordination: Kzycix-wm-yzsg testing normal. Rapid alternating movements are normal. Gait: Normal. Review and summary of old records: Orthostatic vital signs at [facility] on 02/24/2024: Positive. Laying - blood pressure 108/71, heart rate 57 beats/min Sitting - blood pressure 144/82, heart rate 59 beats/min Standing for 3 minutes - blood pressure 120/72, heart rate 62 beats/min MRI of the brain w and w/o contrast at [facility] on 02/06/2024: A punctate microhemorrhage seen involving left parietal lobe on the GRE imaging. Cortical atrophy with mild chronic microvascular ischemic changes which appeared to extend into the kylee. EMG of the right lower extremity at [facility] on 02/03/2024: Normal. No evidence of a [...] orders for this visit: Loss of consciousness (CMS/[facility]) It is my impression that the patient [...] NP [facility] documented in this [facility]08-20-2024 Instructions* Patient Instructions* Michelle Banuelos NP - 02/24/2024 1:00 PM EDT - Ambulatory EEG documented in this [facility]07-15-20[facility] Reason for [...] is a longtime smoker. He presented to [facility] last month for syncope. He [...] EKG 06/25/2016 Normal si (more content not included)...[facility] 12-10-2023 [facility] [...] is a longtime smoker. He presented to [facility] last month for syncope. He [...] bradycardia or tachyarrhythmias. Dys (more content not included)...[facility] noteNo assessment information availableFire[facility] Work Phone: Evaluation note* Diagnosis Loss of consciousness (CMS/HCC)- Primary Other alteration of consciousness Orthostatic hypotension Abnormal finding on MRI of brain History of hepatitis B Personal history of other infectious and parasitic disease Numbness of right lower extremity documented in this encounter [facility]* Diagnosis Loss of consciousness (CMS/HCC)- Primary Other alteration of consciousness Orthostatic hypotension Episodic migraine (CMS/HCC) Abnormal finding on MRI of brain History of hepatitis B Personal history of other infectious and parasitic disease Numbness of right lower extremity documented in this encounter [facility] note* Diagnosis Loss of consciousness (CMS/HCC)- Primary Other alteration of consciousness Orthostatic hypotension Abnormal finding on MRI of brain Numbness of right lower extremity History of hepatitis B Personal history of other infectious and parasitic disease documented in this encounter [facility] Summary Purpose Family History No Family [...] carotid artery duplex bilateral Michelle Banuelos NP [address] [place] [phone] Referral ID Status Reason Start Date Expiration Date V isits Requested Visits Authorized [id number] Incomplete 03/23/2024 09/19/2024 1 1 Specialty Diagnoses / Procedures Referred By Sukhi mendez Referred To Contact Neurology Diagnoses Loss of consciousness (CMS/HCC) Procedures Home EEG 36-84 Hours Michelle Banuelos NP [address] [place] [phone] Referral ID Status Reason Start Date Expiration Date V isits Requested Visits Authorized [id number] Pending Review 02/24/2024 08/22/2024 1 1 Additional Source Comments (unrecognized sect ion and content) No Status Records FoundNo Status Records FoundNo Status Records FoundNo Status Records FoundNo Status Records Found INFORMATION SOURCE (unrecogn ized section and content) DATE CREATED AUTHOR 12/25/2017 [facility] DATE CREATED AUTHOR AUTHOR'S ORGANIZ ATION 04/15/2019 [facility] DATE CREATED AUTHOR AUTHOR'S ORGANIZ ATION 06/18/2024 [facility] EPIC DATE CREATED AUTHOR AUTHOR'S ORGANIZ ATION 07/06/2024 [facility] DATE CREATED AUTHOR AUTHOR'S ORGANIZ ATION 10/09/2024 [facility] Care Teams (unrecognized sec tion and content) [...] May 05, 2024 End: May 05, 2024 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 Worker Relationship Specialty Start Date End Date Emerald Jean NP [address] [phone] Referring Physician Family Medicine 12/23/23 Trolley Worker Relationship Specialty Start Date End Date Emerald Jean NP [address] [phone] Referring Physician Family Medicine 12/23/23 Trolley Worker Relationship Specialty Start Date End Date Emerald Jean NP [address] [place] [address] Referring Physician Family Medicine 12/23/23 Trolley Worker Relationship Specialty Start Date End Date Emerald Jean NP [address] [phone] Referring Physician Family Medicine 12/23/23 Goals (unrecognized [...] BE BASED ON THE PRIMARY CLINICAL RECORDS. [employer] [facility]. provides no warranty or guarantee of the accuracy or completeness of information in this document.
[2024-12-07 09:04] LABS: Hematocrit 45.9 % (42.0-54.0); Hemoglobin 15.6 g/dL (14.0-18.0); Mean Corpuscular Hemoglobin 31.3 pg (25.9-34.0); Mean Corpuscular Volume 92.2 fL (80.0-94.0); Mean Platelet Volume 10.5 fL (9.5-13.5); Platelet Count 217 10^3/uL (150-450); Red Blood Count 4.98 10^6/uL (4.70-6.10); Red Cell Distribution Width 13.6 % (11.0-15.0); White Blood Count 8.3 10^3/uL (4.0-11.0)
[2024-12-07 09:47] LABS: Alanine Aminotransferase 30 U/L (16-63); Albumin Globulin Ratio 1.1; Alkaline Phosphatase 88 U/L (46-116); Anion Gap 14.7; Aspartate Amino Transferase 20 U/L (15-37); BUN Creatinine Ratio 14.6; Bilirubin Total 1.1 mg/dL (0.2-1.0); Carbon Dioxide 27.2 mmol/L (21.0-32.0); Chloride 105 mmol/L (98-107); Chol HDL Ratio 2.9; Cholesterol 134 mg/dL (<=200); Estimated GFR (African America >60 (>=60 mL/min/1.73m^2); Estimated GFR (Non-African Ame >60 (>=60 mL/min/1.73m^2); Globulin 3.8 g/dL; Glucose 110 mg/dL (74-106); HDL Cholesterol 46 mg/dL (40-60); LDL Cholesterol Calculated 70.6 mg/dL; Potassium 4.9 mmol/L (3.5-5.1); Sodium 142 mmol/L (136-145); Total Protein 7.8 g/dL (6.4-8.2); Triglycerides 87 mg/dL (<=150); VLDL CHOLESTEROL 17.4 mg/dL
[2024-12-07 14:10] LABS: Estimated Average Glucose 114 mg/dL; Glycohemoglobin A1C 5.6 % (4.5-6.2)
[2024-12-08 04:07] LABS: PSA, Free 0.22 ng/mL; Prostate Specific Ag 0.5 ng/mL (0.0-4.0)
== END 2024-12-07 08:16 | disposition home or self-care (01) ==
LOC: LAB 08:16
PROVIDERS: PCP Nurse Practitioner; Visit Provider Nurse Practitioner
DX: Z00.00 Encounter for general adult medical examination without abnormal findings (principal); Z12.5 Encounter for screening for malignant neoplasm of prostate; Z13.6 Encounter for screening for cardiovascular disorders; R73.09 Other abnormal glucose
CPT/HCPCS: 36415; 80053; 80061; 83036; 84153; 84154; 85027

== ENCOUNTER 2025-05-23 08:18 | Outpatient (OUT) | payer OTHER, SELFPAY ==
--- OUTSIDE RECORDS SUMMARY | 2025-05-23 08:24 | XMS_ITS | CCD ---
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 MACHINE OPERATOR/TENDER, Emerald Unavailable JAMAICA BORGES Attending Unavailable JAMACIA BORGES Referring Unavailable MICHELLE BANUELOS Attending Unavailable MICHELLE BANUELOS Referring Unavailable JAMAICA BORGES Attending Unavailable BANUELOSMICHELLE Attending Unavailable BANUELOS, MICHELLE Referring Unavailable BANUELOS, MICHELLE Attending Unavailable BANUELOS, MICHELLE Referring Unavailable BANUELOSMARIELAH Attending Unavailable Asaad, Imad Attending Unavailable Asaad, Imad Admitting Unavailable Miranda, [facility] Unavailable Jamaica Borges Admitting Unavailab Jamaica Pedraza Attending Unavailab le Miranda, [place] [facility] Unavailable Asaad, Imad Admitting Unavailable Asaad, Imad Attending Unavailable [place], [place] [facility] Unavailable Asaad, Imad Attending Unavailable Miranda, [place] [facility] Unavailable Asaad, Imad Admitting Unavailable Asaad, Imad Attending Unavailable [facility] Unavailable Asaad, Imad Admitting Unavailable ELISABETH PEREZ Attending Unavailable ELISABETH PEREZ Attending Unavailable ELISABETH PEREZ Attending Unavailable Allergies Allergy ClassificationReported Allergen(s)Allergy TypeDate of OnsetReaction(s) Facility (1 source)No Known Medication Allergies; Translations: [No Known Medication Allergies]Propensity to adverse reactions to drug (disorder)[facility] Repository (5 sources)Hornet venom; Translations: [HORNET VENOM]Propensity to adverse -86-4996VwkomzwnNXWE [facility] (1 source)bee venom protein (honey bee)Drug allergy (disorder)05-17-2024 [facility] Repository Medications Current Medications MedicationDrug Class(es)DatesSig (Normalized)Sig (Original)[id number] 200 actuat albuterol 0.09 mg/actuat metered dose inhaler (2 sources)beta2-Adrenergic AgonistStart: 88-70-1109cbco 2 puff(s) by inhalation every four hoursalbuterol HFA 90 mcg/act inhaler Inhale 2 puffs every 4 (four) hours if needed 06/02/2024 ActiveamLODIPine 10 mg / benazepril hydrochloride 20 mg oral capsule (12 sources)Dihydropyridine Calcium Channel Roseline, Angiotensin Converting Enzyme InhibitorStart: 69-24-0162tcws 1 capsule by mouth once dailyAmlodipine- Benazepril Active 1 CAP PO Daily March 25, 2024 12:00amStart: 01-19-2024 End: 76-41-5756zemi 1 capsule by mouth in the morningamLODIPine-benazepril (Lotrel) 10-20 MG capsule Take 1 capsule by mouth in the morning. 01/19/2024 0 01/18/2025 Esvgahgmf077313 0.3 ml EPINEPHrine 1 mg/ml auto-injector (4 sources)alpha-Adrenergic Agonist, beta-Adrenergic Agonist, Catecholamine Start: 89-94-0567PIVJMFMqpcs (Epipen) 0.3 MG/0.3ML injection syringe Inject 1 Syringe as directed 1 (one) time 03/05/2024 Activelisinopril 10 mg oral tablet (8 sources)Angiotensin Converting Enzyme InhibitorStart: 06-41-5220frky 1 tablet by mouth once dailylisinopril 10 MG tablet Take 10 mg by mouth Daily 12/04/2023 Activemeloxicam 15 mg oral tablet (7 sources)Nonsteroidal Anti-inflammatory DrugStart: 96-73-1076xpim 1 tablet by mouth once dailymeloxicam (Mobic) 15 MG tablet Take 15 mg by mouth Daily 03/19/2023 Ehdlqm18 hr metoprolol succinate 25 mg extended release oral tablet (12 sources)beta-Adrenergic BlockerStart: 36-04-9337fciw 25 mg by mouth once dailyMetoprolol Succinate Active 25 MG PO Daily March 25, 2024 12:00amtake 1 tablet by mouth once dailymetoprolol succinate XL (Toprol-XL) 50 MG 24 hr tablet Take 50 mg by mouth Daily Activetake 1 tablet by mouth once daily metoprolol succinate XL (Toprol-XL) 25 MG 24 hr tablet Take 50 mg by mouth Daily ActiveTiotropium-Olodaterol (8 sources)Anticholinergic, beta2-Adrenergic AgonistStart: 77-22-0168Ftvcncnonk- Olodaterol (Stiolto Respimat) 2.5-2.5 mcg/actuation mist Active 2 PUFF INHALATION Daily March 25, 2024 12:00amStiolto Respimat 2.5-2.5 MCG/ACT aerosol solution inhaler Inhale 2 Inhalation Daily Ddxnnj84 actuat umeclidinium 0.0625 mg/actuat / vilanterol 0.025 mg/actuat dry powder inhaler (2 sources)Anticholinergic, beta2-Adrenergic AgonistStart: 22-81-5280uusz 1 puff(s) by inhalation once dailyAnoro Ellipta 62.5-25 MCG/ACT aerosol powder Inhale 1 puff Daily 06/02/2024 Active Problems Active Problems Problem ClassificationProblemDateDocumented DateEpisodic/ChronicAlcohol-related disorders (2 sources)Alcohol abuse, uncomplicated; Translations: [Alcohol abuse, uncomplicated]Onset: 26-37-5285OitmpcsIowotodaa of lipid metabolism (2 sources)Hyperlipidemia, unspecified; Translations: [Hyperlipidemia, unspecified]Onset: 71-51-1827OfykbovDwmisnfrk hypertension (8 sources)Hypertensive disorder; Translations: [Essential (primary) hypertension]Onset: 458035-95-9341OajqxjbAghtemnj; including migraine (2 sources)Migraine, unspecified, not intractable, without status migrainosus; Translations: [Migraine, unspecified, without mention of intractable migraine without mention of status migrainosus]06-86-0478GhcaiwuRgntysktwtjes and screening for infectious disease (1 source)Raised antibody titer; Translations: [Raised antibody titer]Onset: 76-15-7102QmegbwsyMicovb and vomiting (1 source)Nausea with vomiting, unspecified; Translations: [Nausea with vomiting, unspecified]Onset: 34-92-6798KnladowzCljisaatirvkh gastroenteritis (1 source)Noninfective gastroenteritis and colitis, unspecified; Translations: [Noninfective gastroenteritis and colitis, unspecified]Onset: 04-44-4331Wiwljplf Other circulatory disease (10 sources)Orthostatic hypotension; Translations: [Orthostatic hypotension] Onset: 036972-93-8235MoysxvrlEqtms gastrointestinal disorders (1 source)Diarrhea, unspecified; Translations: [Diarrhea, unspecified]Onset: 23-95-1945RabduhzgWhlhz infections; including parasitic (6 sources)History of hepatitis B; Translations: [Personal history of other infectious and parasitic diseases]02-34-2452MpzjtsdwAfqqv liver diseases (1 source)Steatosis of liver; Translations: [Fatty (change of) liver, not elsewhere classified]34-09-5085SraxmbtLqxif liver diseases (4 sources)Elevated liver enzymes level; Translations: [Abnormal levels of other serum enzymes]15-21-8690NjnlqgkgKfqxn liver diseases (4 sources)Abnormal levels of other serum enzymes; Translations: [Other nonspecific abnormal serum enzyme levels]55-48-5076GglzcfweYsucg nervous system disorders (6 sources)Numbness of lower limb ; Translations: [Anesthesia of skin]03-23-2024 EpisodicResidual codes; unclassified (2 sources)Sleep apnea, unspecified; Translations: [Sleep apnea, unspecified] Onset: 45-37-8929Wdylywb Past or Other Problems Problem ClassificationProblemDateDocumented DateEpisodic/ChronicCardiac dysrhythmias (2 sources)Palpitations; Translations: [Palpitations]Onset: 55-21-9992Iphvrpcr Coma; stupor; and brain damage (11 sources)Loss of consciousness; Translations: [Unspecified coma]Onset: 884244-06-7722MrijsedqKsvdktuvd (13 sources)Acute type B viral hepatitis; Translations: [Acute hepatitis B without delta-agent and without hepatic coma]Onset: 059550-02-6328Dkqfhxch Nonspecific chest pain (2 sources)Chest pain, unspecified; Translations: [Chest pain, unspecified] Onset: 40-66-2907EcwtcmuhRiwcj lower respiratory disease (2 sources)Other forms of dyspnea; Translations: [Other forms of dyspnea]Onset: 03-67-7675WmptphnvCeulh screening for suspected conditions (not mental disorders or infectious disease) (7 sources)Magnetic resonance imaging of brain abnormal; Translations: [Other abnormal findings on diagnostic imaging of central nervous system]Onset: 532206-89-6514YedszjriSwkoznqv codes; unclassified (2 sources)Tobacco use; Translations: [Tobacco use]Onset: 23-18-5663Mdhfjhlw Syncope (2 sources)Syncope and collapse; Translations: [Syncope and collapse]Onset: 25-64-9202Ojghvlhp Results Test NameValueInterpretationReference UwiqaHohtswue18oh 51-88-533196Rpllcrjoc lab results from 12/07/2024: Elisabeth Perez MD to Nd 12/07/24 12:02 PM Lipids are very good after starting atorvastatin, continue current management, recheck lipids and AST ALT in 3 months. for patient. I scheduled for him follow up in Mar 2025 and sent him lab orders to be completed the week prior. Asked him to call the office with any questions.NormalUnPremier HealthResults Follow-Upon 14-79-0949Xxxmuqf Follow-[id number] Ahsan Nielsen 1965 M Date Provider Department Center 12/19/2024 [id number]-TKXJQFELISABETH PEREZ RADHA Schulzaren Daniela Family History Problem Relation Age of Onset Cancer Mother COPD Father Family Status - Relation Status Age at Mother Father DeceasedNormalUniRegional Medical CenterOrders Onlyon 12-07-2024 Orders [id number] Ahsan Nielsen 1965 M Date Provider Department Center 12/07/2024 [id number], [facility] RADHA Champagne Family History Problem Relation Age of Onset Cancer Mother COPD Father Family Status - Relation Status Age at Mother Father DeceasedNormalUniRegional Medical Center36on 99-36-613393Iklyv to contact patient for the 3rd time. His VM is full and I'm unable to LM. I have ordered the labs and sent in atorvastatin. I will send lab orders to patient in the mail and make him aware of medication to start.[facility]36on 77-42-019069Kifruhpoc labs from 09/07/2024: MD Michelle Shetty MA Cholesterol is mildly high. Start atorvastatin 20 mg daily and recheck lipids and AST ALT in 2 months LM for patient to return my call. [place] [facility] last week also.[facility] HospitalOffice Visiton 68-70-7716Ezbljy-up [id number] Ahsan Nielsen A 1965 [facility] 08/25/2024 71294-QLHPGOELISABETH NGUYEN RADHA Champagne Family History Problem Relation Age of Onset Cancer Mother COPD Father Family Status - Relation Status Age at Mother Father Level of Service:88446 [place] OFFICE/OUTPATIENT ESTABLISHED MOD MDM 30 MIN Reason for Visit and Comments: Syncope [506] - Had stress test 08/06/2024. Denies chest pain and SOB. Denies recurrent syncope. Palpitations [994173][facility] Visiton 32-02-6832Gxdpot-up [id number] Ahsan Nielsen A 1965 [facility] Provider Department Center 07/12/2024 91946-CEMXWMELISABETH NGUYEN RADHA Champagne Family History Problem Relation Age of Onset Cancer Mother COPD Father Family Status - Relation Status Age at Mother Father Level of Service:00244 [place] OFFICE/OUTPATIENT ESTABLISHED MOD MDM 30 MIN Reason for Visit and Comments: Hypertension [113260] - Denies chest pain. Palpitations [966355] - No more than usual for him. Syncope [506] - Denies recurrence. Says he's gotten used to taking his time upon standing up to prevent lightheadedness/dizziness. He's been feeling a lot better the past month or so.[facility] HospitalMR abdomen wo/w conon 76-19-6739GC abdomen wo/w [facility] [place] [id number] MRI Report Signed Patient: Ahsan Nielsen MR#: [id number] : 1965 Acct:[id number] Age/Sex: 58 / M ADM Date: 05/05/24 Loc: Room: Type: [facility] Attending Dr: Ayanna Waldron MD Copies to: [...] SUGGESTED. Impression dictated by: Shiva Rey Jr., D.ODaniela05/06/2024 9:42 AM Dictation Location: [place] [address] Transcribed By: [facility] 05/06/2442 Dictated By: Shiva Rey Jr, DO 05/06/24 0934 Signed By: 05/06/24 0942[facility] Physician GroupUS liver 32-24-9378NV[facility] Main [address] [address] Ultrasound Report Signed Patient: Ahsan Nielsen MR#: [id number] : 1965 Acct:[id number] Age/Sex: 58 / M ADM Date: 04/03/24 Loc: Room: Type: [facility] Attending Dr: Ayanna Waldron MD Ordering Provider: Ayanna Waldron MD Date of Service: 04/03/24 US/US liver: B16.9 - Acute hepatitis B without delta- agent and without... Copies to: Ayanna Waldron MD [...] Jai Lees M.D.04/03/2024 9:50 AM Dictation Location: [place] [address] Tech: Devorah Brown Transcribed By: [facility] 04/03/24 0950 Dictated By: Jai Lees DO 04/03/24 0936 Signed By: 04/03/24 0950[facility] Physician GroupAlanine aminotransferase [Enzymatic activity/volume] in Serum or PlasmaOrdered By: Ayanna Waldron on 01-46-1252ZZZ [Catalytic activity/Vol]17 U/LNormal7-52[facility]S HospitalComment on above:Performed By: #### HBV PCR, HBSAB, HEMOCHROM, HBCAB, HBeAG, HIV SCREEN, HBEAB, HAABT, HAAB, HCBIGM,HCV RX PCR, HDAB, HBSAG, CERULOP, ALPHA PHEN #### [facility] , #### HEPATIC #### [facility] [address] [place] [id number] USAAlbumin [Mass/volume] in Serum or Plasma by Bromocresol green (BCG) dye binding methoOrdered By: Ayanna Waldron on 16-88-0313Tqaonpn BCG dye [Mass/Vol]4.7 g/dL3.5-5.7FAultman HospitalAlkaline phosphatase [Enzymatic activity/volume] in Serum or PlasmaOrdered By: Imadonay Waldron on 22-39-0996UHI [Catalytic activity/Vol]73 U/ILqeoix71-246UzcwxuivpDayton Children'S HospitalComment on above:Result Comment: PERFORMED BY: [facility] [address] [place] [address] PATHOLOGIST VIDEO GAME TESTER CECILY VILLAGRAN M.D.Performed By: #### HBV PCR, HBSAB, HEMOCHROM, HBCAB, HBeAG, HIV SCREEN, HBEAB, HAABT, HAAB, HCBIGM,HCV RX PCR, HDAB, HBSAG, CERULOP, ALPHA PHEN #### [facility] , #### HEPATIC #### [facility] [address] [place] [id number] ARFBdglw-2-Eauaaweqrfx Phenotypeon 23-57-7216Nonua 1 Anti-Iaogllj235 mg/cNEmfljv790-010Gne [facility] Physician GroupComment on above: Performed By: #### HBV PCR, HBSAB, HEMOCHROM, HBCAB, HBeAG, HIV SCREEN, HBEAB, HAABT, HAAB, HCBIGM,HCV RX PCR, HDAB, HBSAG, CERULOP, ALPHA PHEN ####[facility] ,#### HEPATIC ####[facility] [place] [address] USAPhenotype (P1)MZNormal.[facility] Comment on above:Result Comment: MM Phenotype is considered to be normal , producing normal serum levels of hypop-4-phkkowrs inhibitor and not associated with clinical disease. [...] Ranges used to confirm phenotype. Performed at: [address] [id number] Fitter Tacker: Prashanth Cat PhD, Phone: [phone] Performed at: [facility] Lab[address] [id number] Fitter Tacker: Girish Kay MD, Phone: [phone] By: #### HBV PCR, HBSAB, HEMOCHROM, HBCAB, HBeAG, HIV SCREEN, HBEAB, HAABT, HAAB, HCBIGM,HCV RX PCR, HDAB, HBSAG, CERULOP, ALPHA PHEN ####[facility] ,#### HEPATIC ####[facility] [place] [address] [place] Aspartate aminotransferase [Enzymatic activity/volume] in Serum or PlasmaOrdered By: Imadonay Waldron on 46-23-3536RAS [Catalytic activity/Vol]16 U/LNlnmwr10-10 [facility] HospitalComment on above:Performed By: #### HBV PCR, HBSAB, HEMOCHROM, HBCAB, HBeAG, HIV SCREEN, HBEAB, HAABT, HAAB, HCBIGM,HCV RX PCR, HDAB, HBSAG, CERULOP, ALPHA PHEN #### [facility] , #### HEPATIC #### [facility] [address] [place] [address] USABilirubin.direct [Mass/volume] in Serum or PlasmaOrdered By: Imad Asaad on 86-36-0394Xgkwloodk.direct [Mass/Vol]0.10 mg/dL0.03-0.18 [facility]S HospitalBilirubin.total [Mass/volume] in Serum or PlasmaOrdered By: Ayanna Waldron on 23-61-7658Gpgyteegh [Mass/Vol]0.9 mg/dLNormal 0.3-1.0[facility] HospitalComment on above:Performed By: #### HBV PCR, HBSAB, HEMOCHROM, HBCAB, HBeAG, HIV SCREEN, HBEAB, HAABT, HAAB, HCBIGM,HCV RX PCR, HDAB, HBSAG, CERULOP, ALPHA PHEN #### [facility] , #### HEPATIC #### [place] [address] USABlood or tissue HFE gene mutations identification by molecular genetics methodOrdered By: Ayanna Waldron on 88-18-4075TRP gene targeted mutation analysis Molgen Nom (Bld/Tiss)Comment.[facility] Comment on above:Results:c.845G>A (p.Skw100Ala) - Not Detectedc.187C>G (p.Ujo49Axo) - Detected, heterozygousc.193A>T (p.Gpb38Lxp) - Not DetectedNot associated with increased risk [...] recommended for patientswho are homozygous for c.845G>A (p.Ddr597Jbk) and have yetto experience clinical sympt oms.Comments:The most common HFE variants associated with hereditaryhemochromatosis are c.845G>A(p.Htg787Uov), c.187C>G(p.Bah28Uku), c.193A>T (p.Wox72Zeq). While patientshomozygous for c.845G>A (p.Pij480Tdn) are the most likelyto present clinical symptoms, less than 10% developclinically significant iron overload with tissue and organdamage.Genetic counseling is recommended to discuss the potentialclinical implications of positive results, as well asrecommendations for testing family members.Genetic Coordinators are available for health careproviders to discuss results at [phone]).Test Details:Three variants analyzed:c.845G>A (p.Ser647Sus), commonly referred to as C282Yc.187C>G (p.Mid43Kqw), commonly referred to as H63Dc.193A>T (p.Okm86Gco), commonly referred to as K76ZIjhogwv/Limitations:DNA Analysis of the HFE gene (NM_000410.4) was performedby PCR amplification followed by restriction enzymedigestion analyses. Results must be combined with clinical information for the most accurate interpretation. Molecular-based testing is highly accurate, but as in any laboratorytest, diagnostic errors may occur. False positive or falsenegative results may occur for reasons that include geneticvariants, blood transfusions, bone marrow transplantation,somatic or tissue-specific mosaicism, mislabeled samples,or erroneous representation of family relationships.This test was developed and its performancecharacteristics determined by [employer]. It has not beencleared or approved by the Food and Drug Administration.References:Jorden BR, Jin PC, Fernandez KV, Jarret LW, Michell ;[place] Association for the Study of Liver Diseases.Diagnosis and management ofhemochromatosis: 2011 practiceguideline by the [place] Association for the Study ofLiver Diseases.Hepatology. 2011 Jan;54(1):328-43. doi:10.1002/hep.67487. PMID: 45659115; PMCID: [id number].Dakota G, Paramjit P, Kina DW, Kathryn H, Rosemary O,Lucian S, Mahad Ugalde Keeney S. EMQN heber pr acticeguidelines for the molecular genetic diagnosis ofhereditary hemochromatosis (HH). Eur J Hum Alisha. 2016Apr;24(4):479-29. doi: 10.1038/ejhg.2015.128. Epub 2014. PMID: 26765649; PMCID: CXC5255903. Ceruloplasminon 85-82-7480Xzsnquhpwfyap98.5 mg/cJMslt37.0-31.0The [facility]owell Physician GroupComment on above:Result Comment: Performed at: - Lab[address] [id number] Fitter Tacker: Prashanth Cat PhD, Phone: [phone] PERFORMED BY: [place] [address] PATHOLOGIST VIDEO GAME TESTER CECILY VILLAGRAN M.D.Performed By: #### HBV PCR, HBSAB, HEMOCHROM, HBCAB, HBeAG, HIV SCREEN, HBEAB, HAABT, HAAB, HCBIGM,HCV RX PCR, HDAB, HBSAG, CERULOP, ALPHA PHEN #### [facility] , #### HEPATIC #### [facility] [address] [place] [address] USAHIV 1/O/2 Antigen/Antibodyon 01-66-1115OUW Screen 4th GenerationNon-ReactiveNormalNon ReactiveThe Chestnut Hill HospitalComment on above:Result Comment: HIV-1/HIV-2 antibodies and HIV-1 p24 antigen were NOT detected. There is no laboratory evidence of HIV infection. HIV Negative Performed at: [facility] Lab[address] [id number] Fitter Tacker: Prashanth Cat PhD, Phone: [phone] By: #### HBV PCR, HBSAB, HEMOCHROM, HBCAB, HBeAG, HIV SCREEN, HBEAB, HAABT, HAAB, HCBIGM,HCV RX PCR, HDAB, HBSAG, CERULOP, ALPHA PHEN ####[facility] ,#### HEPATIC ####[facility] [place] [address] USAHIV 1 and HIV-2 antibody assay with HIV-1 p24 antigen detectionOrdered By: Ayanna Waldron on 23-88-6921HCO 1+2 Ab+HIV1 p24 Ag IA QlNon-ReactiveNon ReactiveDayton Children'S HospitalComment on above:HIV-1/HIV-2 antibodies and HIV-1 p24 antigen were NOTdetected. There is no laboratory evidence of HIV infection.HIV NegativePerformed at: [facility] [address] [id number] Director: Prashanth Cat PhD, Phone: [phone] B Real-Time PCR, Quanton 57-59-0358XOA As IU/mLNot detectedNormal.The [facility] Physician GroupComment on above:Performed By: #### HBV PCR, HBSAB, HEMOCHROM, HBCAB, HBeAG, HIV SCREEN, HBEAB, HAABT, HAAB, HCBIGM,HCV RX PCR, HDAB, HBSAG, CERULOP, ALPHA PHEN ####[facility] ,#### HEPATIC ####[facility] [place] [address] [id number] HBV (As IU/mL)Normal.[facility] Physician GroupComment on above:Result Comment: Result Units: log10 IU/mL Unable to calculate result since non-numeric result obtained for component test.Performed By: #### HBV PCR, HBSAB, HEMOCHROM, HBCAB, HBeAG, HIV SCREEN, HBEAB, HAABT, HAAB, HCBIGM,HCV RX PCR, HDAB, HBSAG, CERULOP, ALPHA PHEN ####[facility] ,#### HEPATIC ####[address] [address] USATest Information:CommentNormal .The [facility] Physician GroupComment on above:Result Comment: The reportable range for this assay is 10 IU/mL to 1 billion IU/mL. Performed at: [facility] Lab[address] [id number] Fitter Tacker: Girsih Kay MD, Phone: [phone] PERFORMED BY: [facility] [address] [place] [address] PATHOLOGIST VIDEO GAME TESTER CECILY VILLAGRAN M.D.Performed By: #### HBV PCR, HBSAB, HEMOCHROM, HBCAB, HBeAG, HIV SCREEN, HBEAB, HAABT, HAAB, HCBIGM,HCV RX PCR, HDAB, HBSAG, CERULOP, ALPHA PHEN ####[facility] ,#### HEPATIC ####[facility] [address] [place] [address] USAHep C Ab wRfx to Qnt PCRon 06-65-4062Ujszypsvl C Virus AntibodyNon-ReactiveNormalNon ReactiveThe [facility] Comment on above:Performed By: #### HBV PCR, HBSAB, HEMOCHROM, HBCAB, HBeAG, HIV SCREEN, HBEAB, HAABT, HAAB, HCBIGM,HCV RX PCR, HDAB, HBSAG, CERULOP, ALPHA PHEN #### [facility] , #### HEPATIC #### [facility] [address] [place] [address] USAInterpretation Hepatitis CCommentNormal.The [facility] Physician GroupComment on above:Result Comment: Not infected with HCV unless early or acute infection is suspected (which may be delayed in an immunocompromised individual), or other evidence exists to indicate HCV infection.Performed By: #### HBV PCR, HBSAB, HEMOCHROM, HBCAB, HBeAG, HIV SCREEN, HBEAB, HAABT, HAAB, HCBIGM,HCV RX PCR, HDAB, HBSAG, CERULOP, ALPHA PHEN #### [facility] , #### HEPATIC #### [facility] [address] [place] [address] USAHepatic Panelon 36-07-7829Zwnrdte [Mass/Vol]4.7 g/dLNormal 3.5-5.7The [facility] Physician GroupComment on above:Performed By: #### HBV PCR, HBSAB, HEMOCHROM, HBCAB, HBeAG, HIV SCREEN, HBEAB, HAABT, HAAB, HCBIGM,HCV RX PCR, HDAB, HBSAG, CERULOP, ALPHA PHEN #### [facility] , #### HEPATIC #### [place] [address] USABilirubin,Indirect0.8 mg/dLNormalThe [facility]owell Physician GroupComment on above:Performed By: #### HBV PCR, HBSAB, HEMOCHROM, HBCAB, HBeAG, HIV SCREEN, HBEAB, HAABT, HAAB, HCBIGM,HCV RX PCR, HDAB, HBSAG, CERULOP, ALPHA PHEN #### [facility] , #### HEPATIC #### [place] [address] USABilirubin.indirect [Mass/Vol]0.10 mg/dLNormal0.03-0.18[facility] Physician GroupComment on above:Performed By: #### HBV PCR, HBSAB, HEMOCHROM, HBCAB, HBeAG, HIV SCREEN, HBEAB, HAABT, HAAB, HCBIGM,HCV RX PCR, HDAB, HBSAG, CERULOP, ALPHA PHEN #### [facility] , #### HEPATIC #### [place] [address] USAHepatitis A Antibody IgMon 11-21-1329Fxxuvgpvy A Antibody IgMNegativeNormalNegativeH[facility] Physician [facility] HospitalComment on above:Result Comment: A negative anti-HAV IgM result suggests no recent or current HAV infection.Performed By: #### HBV PCR, HBSAB, HEMOCHROM, HBCAB, HBeAG, HIV SCREEN, HBEAB, HAABT, HAAB, HCBIGM,HCV RX PCR, HDAB, HBSAG, CERULOP, ALPHA PHEN #### [facility] , #### HEPATIC #### [place] [address] USAHepatitis A Antibody Totalon 25-69-0566Gmyysqksc A Antibody TotalNegativeNormalNegativeThe [facility] Physician GroupComment on above:Result Comment: Comment: The HAV total antibody assay detects both [...] total antibody results to IgM (e.g., panel #[id number] HAV Antibody w/ Rfx).Performed By: #### HBV PCR, HBSAB, HEMOCHROM, HBCAB, HBeAG, HIV SCREEN, HBEAB, HAABT, HAAB, HCBIGM,HCV RX PCR, HDAB, HBSAG, CERULOP, ALPHA PHEN #### [facility] , #### HEPATIC #### [facility] [address] [place] [address] USAHepatitis A virus Ab [Presence] in Serum by Immunoassay Ordered By: Ayanna Waldron on 33-84-1847TNS Ab IA Ql (S)NegativeNegativeDayton Children'S HospitalComment on above:Comment: The HAV total antibody assay detects both IgG andIgM but does not differentiate between them. A negativeresult suggests susceptibility to infection. A positiveresult could be due to vaccination, previously resolvedinfection or active infection. Testing for HAV IgM shouldbe performed if active HAV infection is suspected. [facility]corpoffers profiles that will automatically reflex positive HAVtotal antibody results to IgM (e.g., panel #[id number] HAVAntibody w/ Rfx).Hepatitis B Core Antibodyon 84-52-9767Vdmjvnhwy B Core AntibodyPositiveCritically abnormal NegativeThe Mission Hospital Mcdowell Physician GroupComment on above:Performed By: #### HBV PCR, HBSAB, HEMOCHROM, HBCAB, HBeAG, HIV SCREEN, HBEAB, HAABT, HAAB, HCBIGM,HCV RX PCR, HDAB, HBSAG, CERULOP, ALPHA PHEN ####[facility] ,#### HEPATIC ####[facility] [address] [place] [address] [place] Hepatitis B Core Antibody IgMon 58-07-9074Efdhogmuu B Core Antibody IgMNegative NormalNegativeThe Mission Hospital Mcdowell Physician GroupComment on above:Result Comment: Performed at: [facility] [id number] Fitter Tacker: Prashanth Cat PhD, Phone: [phone] By: #### HBV PCR, HBSAB, HEMOCHROM, HBCAB, HBeAG, HIV SCREEN, HBEAB, HAABT, HAAB, HCBIGM,HCV RX PCR, HDAB, HBSAG, CERULOP, ALPHA PHEN #### [facility] , #### HEPATIC #### [facility] [address] [place] [id number] USAHepatitis B Surface Antibodyon 72-87-7185Jtkhhahsd B Surface AntibodyReactiveNormal.The [facility] Mcdowell Physician GroupComment on above: Result Comment: Non Reactive: Not immune to HBV infection. Equivocal: Unable to determine if anti-HBs is present at levels consistent with immunity. Reactive: Anti-HBs concentration detected at greater than 10 mIU/mL. Individual is considered to be immune to infection with HBV.Performed By: #### HBV PCR, HBSAB, HEMOCHROM, HBCAB, HBeAG, HIV SCREEN, HBEAB, HAABT, HAAB, HCBIGM,HCV RX PCR, HDAB, HBSAG, CERULOP, ALPHA PHEN #### [facility] , #### HEPATIC #### [facility] [address] [place] [id number] USAHepatitis B Surface Antigenon 34-10-0929EFmXk Screen NegativeNormalNegativeThe [facility] Physician [facility] General HospitalComment on above:Result Comment: PERFORMED BY: [facility] [address] [place] [address] PATHOLOGIST VIDEO GAME TESTER CECILY VILLAGRAN M.D.Performed By: #### HBV PCR, HBSAB, HEMOCHROM, HBCAB, HBeAG, HIV SCREEN, HBEAB, HAABT, HAAB, HCBIGM,HCV RX PCR, HDAB, HBSAG, CERULOP, ALPHA PHEN ####[facility] ,#### HEPATIC ####[facility] [address] [place] [address] USAHepatitis B virus surface Ab [Presence] in SerumOrdered By: Imadonay Asaad on 43-83-3559UPR surface Ab Ql (S)Reactive.[facility] Children'S HospitalComment on above:Non Reactive: Not immune to HBV infection. Equivocal: Unable to determine if anti-HBs is present atlevels consistent with immunity. Reactive: Anti-HBs concentration detected at greater than 10 mIU/mL. Individual is considered to be immune to infection with HBV. Hepatitis B virus surface Ag [Presence] in Serum or Plasma by ImmunoassayOrdered By: Imad Asaad on 74-85-2742EZX surface Ag IA QlNegativeNegativeDayton Children'S HospitalHepatitis Be Antibodyon 69-00-2944Rxvntdzvq Be Antibody ReactiveCritically abnormalNegativeThe [facility] Hospital Mcdowell Physician GroupComment on above:Performed By: #### HBV PCR, HBSAB, HEMOCHROM, HBCAB, HBeAG, HIV SCREEN, HBEAB, HAABT, HAAB, HCBIGM,HCV RX PCR, HDAB, HBSAG, CERULOP, ALPHA PHEN ####[facility] ,#### HEPATIC ####[address] [place] [address] USAHepatitis Be Antigenon 61-09-4756Qkekktwbt Be AntigenNegativeNormalNegativeThe Mission Hospital Mcdowell Physician GroupComment on above: Performed By: #### HBV PCR, HBSAB, HEMOCHROM, HBCAB, HBeAG, HIV SCREEN, HBEAB, HAABT, HAAB, HCBIGM,HCV RX PCR, HDAB, HBSAG, CERULOP, ALPHA PHEN ####[facility] ,#### HEPATIC ####[place] [address] USAHepatitis C virus IgG Ab [Presence] in Serum or Plasma by ImmunoassayOrdered By: Imad Vanita on 47-68-2988LHN IgG IA Ql Non-ReactiveNon ReactiveDayton Children'S HospitalHefrank r. howard [facility] Delta AntibodyOrdered By: Imad Asaad on 43-41-9181Putrajfwo Delta AntibodyNon-Reactive NormalDayton Children'S HospitalComment on above:Reference: Non ReactiveInterpretation: No laboratory evidence of hepatitis D virus (HDV) infection or past exposure to HDVPerforming Labs01: - [facility] [address] Dir: Prashanth Cat, PhD02: [facility] Lab[address] [address] Dir: Girish Kay MDFor Inquiries, the physician may contact Branch: [phone] Lab: [phone] Comment: Reference: Non Reactive Interpretation: No laboratory evidence of hepatitis D virus (HDV) infection or past exposure to HDV Performing Labs 01: [facility], [address] [place] [address] Dir: Prashanth Cat, PhD 02: [facility] [address] Dir: Girish Kay MD For Inquiries, the physician may contact Branch: [phone] Lab: [phone] By: #### HBV PCR, HBSAB, HEMOCHROM, HBCAB, HBeAG, HIV SCREEN, HBEAB, HAABT, HAAB, HCBIGM,HCV RX PCR, HDAB, HBSAG, CERULOP, ALPHA PHEN ####[facility] ,#### HEPATIC ####[facility] [address] [place] [address] USAHereditary Hemochromatosis,DNAon 25-18-4251Jyldhpfvwz HemochromatosisCommentNormal.The [facility] Mcdowell Physician GroupComment on above:Result Comment: Results: c.845G>A (p.Qwq061Udx) - Not Detected c.187C>G (p.Xix57Wxa) - Detected, heterozygous c.193A>T (p.Yvc89Pyi) - Not Detected Not associated with increased [...] for patients who are homozygous for c.845G>A (p.Nub479Vzt) and have yet to experience clinical symptoms. Comments: The most common HFE variants associated with hereditary hemochromatosis are c.845G>A (p.Vbt261Hwr), c.187C>G (p.Fph14Rqk), c.193A>T (p.Dty36Syl). While patients homozygous for c.845G>A (p.Qrf956Ooy) are the most likely to present clinical symptoms, less than 10% develop clinically significant iron overload with tissue and organ damage. Genetic counseling is recommended to discuss the potential clinical implications of positive results, as well as recommendations for testing family members. Genetic Coordinators are available for health care providers to discuss results at [phone]). Test Details: Three variants analyzed: c.845G>A (p.Hsz437Zua), commonly referred to as C282Y c.187C>G (p.Ptp59Czc), commonly referred to as H63D c.193A>T (p.Oaj12Ekd), commonly referred to as S65C Methods/Limitations: DNA [...] developed and its performance characteristics determined by [employer]. It has not been cleared or approved by the Food and Drug Administration. References: Jorden BR, Jin PC, Fernandez KV, Jarret LW, Michell ; [place] [employer] Liver Diseases. Diagnosis and management of hemochromatosis: 2011 practice guideline by the [place] [employer] the [employer] Liver Diseases. Hepatology. 2011 Jan;54(1):328-43. doi: 10.1002/hep.97146. PMID: 54566552; PMCID: ZOS7677686. Dakota G, Paramjit P, Kina DW, Kathryn H, Rosemary O, Lucian S, Casey I, Mahad M, Lauren Morgan. [facility] best practice guidelines for the molecular genetic diagnosis of hereditary hemochromatosis (HH). Eur J Hum Alisha. 2016 Oct;24(4):479-95. doi: 10.1038/ejhg.2015.128. Epub 2014Jan 11. PMID: 79858598; PMCID: NBP0468577.Performed By: #### HBV PCR, HBSAB, HEMOCHROM, HBCAB, HBeAG, HIV SCREEN, HBEAB, HAABT, HAAB, HCBIGM,HCV RX PCR, HDAB, HBSAG, CERULOP, ALPHA PHEN ####[facility] ,#### HEPATIC ####[address] [place] [id number] [place] Reviewed by:CommentNormal.The [facility] Mcdowell Physician GroupComment on above:Result Comment: Eduardo Ovalle, PhD FACMG Performed at: [employer] [facility] RT[address] [place], [place] [id number] Fitter Tacker: Yolanda Lynne [facility], Phone: [phone] PERFORMED BY: [facility] [address] [place] [address] PATHOLOGIST VIDEO GAME TESTER CECILY VILLAGRAN M.D.Performed By: #### HBV PCR, HBSAB, HEMOCHROM, HBCAB, HBeAG, HIV SCREEN, HBEAB, HAABT, HAAB, HCBIGM,HCV RX PCR, HDAB, HBSAG, CERULOP, ALPHA PHEN ####[facility] ,#### HEPATIC ####[address] [address] [place] [id number] [place]ANo Panel InformationOrdered By: Ayanna Waldron on 95-51-1863Vxenbuqreiantma NoteComment.[facility] Children'S HospitalComment on above:Eduardo Ovalle, PhD FACMGPerformed at: [facility] [address] [place], [place] [id number] Director: Yolanda Lynne [facility], Phone: [phone] Hepatitis A IgM AntibodyNegativeNegSelect Medical Specialty Hospital - Columbus SouthComment on above:A negative anti-HAV IgM result suggests no recent orcurrent HAV infection.Hepatitis B Core IgM AntibodyNegativeNegSelect Medical Specialty Hospital - Columbus SouthComment on above:Performed at: [facility] [address] [id number] Director: Prashanth Cat PhD, Phone: [phone] Hepatitis B Core Total AntibodyPositiveAbnormalNegSelect Medical Specialty Hospital - Columbus SouthHepatitis B DNA Test InformationComment.[facility] Children'S HospitalComment on above:The reportable range for this assay is 10 IU/mL to 1billion IU/mL.Performed at: [facility] [address] [id number] Director: Girish Kay MD, Phone: [phone] C InterpretationComment.[facility] Children'S HospitalComment on above:Not infected with HCV unless early or acute infection issuspected (which may be delayed in an immunocompromisedindividual), or other evidence exists to indicate HCVinfection.Protein [Mass/volume] in Serum or PlasmaOrdered By: Ayanna Waldron on 87-93-4985Ggjdwax [Mass/Vol]7.7 g/dLNormal6.4-8.9Day[facility] Children'S HospitalComment on above:Performed By: #### HBV PCR, HBSAB, HEMOCHROM, HBCAB, HBeAG, HIV SCREEN, HBEAB, HAABT, HAAB, HCBIGM,HCV RX PCR, HDAB, HBSAG, CERULOP, ALPHA PHEN #### [facility] , #### HEPATIC #### [place] [address] USAQualitative serum or plasma hepatitis B virus e antibody by enzyme immunoassayOrdered By: Ayanna Waldron on 84-42-2882DYO e Ab IA QlReactive AbnormalNegSelect Medical Specialty Hospital - Columbuserum okzui-5-xmfkywqyvvt measurementOrdered By: Ayanna Waldron on 86-85-0488Vksfc 1 antitrypsin [Mass/Vol]119 mg/qV915-813DldujsofaTogus VA Medical Centererum globulin measurement by calculation (mass/volume)Ordered By: Ayanna Waldron on 57-34-2407Zqaogtht (S) [Mass/Vol]3.0 g/dLNoOhioHealth Grady Memorial HospitalComment on above: Performed By: #### HBV PCR, HBSAB, HEMOCHROM, HBCAB, HBeAG, HIV SCREEN, HBEAB, HAABT, HAAB, HCBIGM,HCV RX PCR, HDAB, HBSAG, CERULOP, ALPHA PHEN #### [facility] , #### HEPATIC #### [facility] [address] [place] [id number] USASerum hepatitis B virus e antigen detection by enzyme immunoassayOrdered By: Ayanna Waldron on 42-80-1300XEB e Ag IA QlNegativeNegative Togus VA Medical Centererum or plasma albumin/globulin mass ratio Ordered By: Ayanna Waldron on 85-58-2291Yhhxlxg/Globulin [Mass ratio]1.6 {ratio} [facility] Citizens HospitalComment on above:Performed By: #### HBV PCR, HBSAB, HEMOCHROM, HBCAB, HBeAG, HIV SCREEN, HBEAB, HAABT, HAAB, HCBIGM,HCV RX PCR, HDAB, HBSAG, CERULOP, ALPHA PHEN #### [facility] , #### HEPATIC #### [facility] [address] [place] [id number] USASerum or plasma alpha 1 antitrypsin phenotyping identification by immunofixationOrdered By: Ayanna Waldron on 15-38-1983Wzmcs 1 antitrypsin phenotyping Immunofixation NomMz.[facility] Comment on above: MM Phenotype is considered to be normal , producingnormal serum levels of nwplx-6-zacpkxgy inhibitor andnot associated with clinical disease. Associated A2Pmykbc serum levels in other phenotypes and theirincidence in the general population are shown in thetable below.Phenotype Population % function A-1-AT Conc.* Incidence % compared to MM (Typical Range) MM 86.5% 100% (96 - 189) MS 8.0% 86% (83 - 161) MZ 3.9% 61% (60 - 111) FM 0.4% 100% (93 - 191) SZ 0.3% 41% (42 - 75) SS 0.1% 64% (62 - 119)ZZ 0.05% 19% (16 - 38) FS 0.05% 70% (70 - 128) FZ Unknown 46% (44 - 88) FF Unknown Unknown*A-1-AT concentration in the homozygous MM phenotype is taken as the reference normal. Percent deficiency in each phenotype is reported relative to this reference. Ranges used to confirm phenotype.Performed at: [facility] [employer] [id number] Director: Prashanth Cat PhD, Phone: [phone] at: [address] [id number] Director: Girish Kay MD, Phone: [phone] or plasma ceruloplasmin measurement (mass/volume)Ordered By: Ayanna Waldron on 64-69-4639Vzbxrzwnaknoa [Mass/Vol]32.5 mg/fTPctq34.0-31.0Day[facility] Children'S HospitalComment on above:Performed at: [facility] [employer] [id number] Director: Prashanth Cat PhD, Phone: [phone] or plasma hepatitis B virus DNA measurement (units/volume) (viral load) by probOrdered By: Ayanna Waldron on 75-42-3704OQB DNA CHAUNCEY+probe QnNot detected.[facility] Serum or plasma hepatitis B virus DNA viral load by probe and target amplification meOrdered By: Ayanna Waldron on 52-28-8057LTN DNA CHAUNCEY+probe [#/Vol]N/A [facility]'S HospitalHBV DNA CHAUNCEY+probe [Log units/Vol]See comment. [facility]'S HospitalComment on above:Result Units: log10 IU/mLUnable to calculate result since non-numeric resultobtained for component t est.Serum or plasma non-glucuronidated bilirubin measurement (mass/volume) Ordered By: Ayanna Waldron on 50-87-5165Bwjevgweo.indirect [Mass/Vol]0.8 mg/dL [facility]36on 99-52-441973Xdo Dr. Perez, regarding patient's blood pressure log that is [...] Patient notified and verbalized understanding. Felicity Bailon [facility] HospitalOffice Visiton 83-79-5232Mstrvt-up [id number] Ahsan Nielsen 1965 M Date Provider Department Center 03/10/2024 ELISABETH BOOTH Family History Problem Relation Age of Onset Cancer Mother COPD Father Family Status - Relation Status Age at Mother Father Level of Service:68956 [place] OFFICE/OUTPATIENT ESTABLISHED MOD MDM 30 MIN Reason for Visit and Comments: Hypertension [913050] - Pt is here for a six to eight week follow up.Normal [facility]MR [facility] wo/w conon 58-82-4881FE head/brain wo/w [place] [address] MRI Report Signed Patient: Ahsan Nielsen MR#: [id number] : 1965 Acct:[id number] Age/Sex: 58 / M ADM Date: 02/06/24 Loc: Room: Type: [facility] Attending Dr: Jamaica Borges DO Copies [...] Rey Jr., D.ODaniela02/06/2024 7:24 PM Dictation Location: RADIO-PC-15 Transcribed By: RHINA 02/06/241923 Dictated By: Shiva Rey Jr, DO 02/06/241920 Signed By: 02/06/241923[facility] Physician GroupFanorwood hospital Medicine Office/Clinic Noteon 14-67-9612Zrjsbt Medicine Office/Clinic NoteChief [facility] f/u,New PT History of Present Illness [...] signed by Guille Khan PA-C 11/27/18 15:46 EDTNormalSelect Medical [facility] Clinic [facility], [place].eGFRon 11-41-8339nBPR AA>60Normal>=60[facility], AvonComment on above: Result Comment: Result = 0-14.9 mL/min/1.73 m2 Kidney failure or Dialysis Result = 15-29 mL/min/1.73 m2 Severe decrease in GFR Result = 30-59 mL/min/1.73 m2 Moderate decrease in GFR Result >= 60 mL/min/1.73 m2 Normal or increased GFRPerformed By: #### EGFR #### [address] [address]cPRU Non-AA>60Normal>=60[facility], AvonComment on above:Result Comment: Result = 0-14.9 mL/min/1.73 m2 Kidney failure or Dialysis Result = 15-29 mL/min/1.73 m2 Severe decrease in GFR Result = 30-59 mL/min/1.73 m2 Moderate decrease in GFR Result >= 60 mL/min/1.73 m2 Normal or increased GFR Chronic kidney disease is defined as either kidney damage or GFR < 60 mL/min/1.73 m2 for >= 3months. Kidney damage is defined as pathologic abnormalities or markers of damage including abnormalities in blood or urine tests or imaging studies. This GFR is NOT used for medication dosing. Performed By: #### EGFR #### [address] [address] 2Hron 11-20-20182 Hour Medoocmmd62.0 ng/oIOpldjr62.4-105.7 [facility], AvonComment on above:Performed By: #### CBC #### [address] [address]Ravtvjyq I.cardiac [Mass/Vol]ng/mLNormal0.00-0.03[facility] Hospital, AvonComment on above:Result Comment: An increased Troponin-I value, in the absence of myocardial ischemia, may indicate other etiologies of cardiac damage.Performed By: #### CBC #### [address] [address]IOZ Initon 97-39-2768Mqbqzje Ckjvtkuti58.0 ng/mLNormal 17.4-105.7BWhite HospitalComment on above:Performed By: #### AMI1 #### [address] [address]Bchmiyru I.cardiac [Mass/Vol]ng/mLNormal0.00-0.03[facility], AvonComment on above:Result Comment: An increased Troponin-I value, in the absence of myocardial ischemia, may indicate other etiologies of cardiac damage.Performed By: #### AMI1 #### [address] [address]NNU1Zvmk 11-20-20186 Hour Vwfkytezq06.0 ng/qOGgxwgi73.4-105.7 [facility], AvonComment on above:Performed By: #### CBC #### [address] [address]Gmiypxvk I.cardiac [Mass/Vol]ng/mLNormal0.00-0.03[facility], AvonComment on above:Result Comment: An increased Troponin-I value, in the absence of myocardial ischemia, may indicate other etiologies of cardiac damage.Performed By: #### CBC #### [address] [address]Wvmlc Metabolic Profileon 82-51-1804Gxaum gap [Moles/Vol]14 mmol/LNormal7-17[facility], AvonComment on above:Performed By: #### CD:[id number] #### [address] [address]Dnyjaut [Mass/Vol]8.7 mg/dLNormal8.5-10.3BWhite HospitalComment on above:Performed By: #### CD:[id number] #### [address] [address]Vknvnzma [Moles/Vol]105 mmol/EQyjdyo48-161DylswknsmSelect Medical [facility] Clinic Rehabilitation Hospital, AvonComment on above:Performed By: #### CD:[id number] #### [address] [address]BR8 [Moles/Vol]22 mmol/DColzqu31-74BoyvoasldSelect Medical Cleveland Clinic Rehabilitation Hospital, AvonComment on above:Performed By: #### CD:[id number] #### [address] [address]Dhishnggfm [Mass/Vol]0.70 mg/dLNormal0.61-1.24[facility] Health SystemComment on above:Performed By: #### CD:[id number] #### [address] [address]Wrfbbsv [Mass/Vol]100 mg/iBQrhmvn38-061EnfqmsdmuSelect Medical Cleveland Clinic Rehabilitation Hospital, AvonComment on above:Performed By: #### CD:[id number] #### [address] [address]Grfruudjt [Moles/Vol]4.4 mmol/LNormal3.4-4.8BWhite HospitalComment on above:Performed By: #### CD:[id number] #### [address] [address]Edkdga [Moles/Vol]137 mmol/FXzwkys290-446NjigiqqdbSelect Medical Cleveland Clinic Rehabilitation Hospital, AvonComment on above:Performed By: #### CD:[id number] #### [address] [address]Znbf nitrogen [Mass/Vol]13 mg/dLNormal8-26[facility], AvonComment on above:Performed By: #### CD:[id number] #### [address] [address]Cbjz nitrogen/Creatinine [Mass ratio]18.6 mg/cfRmolvx17.0-20.0 [facility] Hospital, AvonComment on above:Performed By: #### CD:[id number] #### [address] [address]TKW w/ Diffon 62-52-0327Gmbghwyhewi distribution width (RBC) [Ratio]13.0 %Mycqkf09.6-14.8BWhite HospitalComment on above: Performed By: #### CBC #### [address] [address]Kaxuevpdik (Bld) [Volume fraction]46.3 %Hgngaz46.0-53.0 [facility], AvonComment on above:Performed By: #### CBC #### [address] [address]Bbqmvmbosy (Bld) [Mass/Vol]15.8 g/nSPmeisz36.5-17.5BWhite HospitalComment on above:Performed By: #### CBC #### [address] [address]WMP (RBC) [Entitic mass]32.5 oaSorzwa19.0-35.0[facility], AvonComment on above:Performed By: #### CBC #### [address] [address]UDOH (RBC) [Mass/Vol]34.1 %Jkyxxf99.0-37.0[facility], AvonComment on above:Performed By: #### CBC #### [address] [address]IDK (RBC) [Entitic vol]95.3 rDSepoit97.0-100.0[facility], AvonComment on above:Performed By: #### CBC #### [address] [address]Wqtzloac mean volume (Bld) [Entitic vol]8.6 fLNormal6.7-10.6 [facility], AvonComment on above:Performed By: #### CBC #### [address] [address]Mauxfpidm (Bld) [#/Vol]202 x10*3/gdORdupyd115-940DuwybyqdlSelect Medical Cleveland Clinic Rehabilitation Hospital, AvonComment on above:Performed By: #### CBC #### [address] [address]WGY (Bld) [#/Vol]4.86 x10*6/mcLNormal4.30-5.80[facility], AvonComment on above:Performed By: #### CBC #### [address] [address]AVM (Bld) [#/Vol]12.8 x10*3/mcLHigh4.5-11.0[facility], AvonComment on above:Performed By: #### CBC #### [facility] [address] [place], [place] [address]Zcefxamsmn Consultationon 61-22-0494Pupqdmwdgb Consultation Chief Complaint dyspnea with left chest [...] by Aleshia BEDOLLA, Lincoln Flynn 11/20/18 16:18 [facility] Medical CenterCase Accuracy Expert Progress Noteon 65-16-6198Dean Accuracy Expert Progress NoteCM met with patient before huddles today. He is new to the floor from ER for chest pain. he is asking to go home since unable to do a stress test today. CM will update RN, educated patient on remaining in the hospital while labs are trending for [place]. He does have insurance, independent with adl's, [...] to wait & do a test on fri. Again, re-educated & reminded him to wait for the doctors recommendations first. I don'tlike hospitals or doctors too well & if I don't need to go to them, I don't. SO at bedside forconversation. No other concerns or questions for CM. Will F/U as needed. discussed in huddle. Electronically signed by Leidy Chapin 11/20/18 12:23 EDT Recieved a call back from Dr. quintana military source operations specialist. Upon discussion, we reviewed patient listed [...] job established. Refuses to speak to financial processing clerk when CM offered. Offered self payeducation pamphlet as well, pt refuses stating he will get it figured out. CM put financial assistance program in chart for Discharge. Electronically signed by Leidy Chapin 11/20/18 14:32 EDTNormalBlOhioHealth Marion General HospitalD-Dimeron 02-11-6320Ikmhfr D-dimer FEU IA (Bld) [Mass/Vol]0.34 mg/L feuNormal0.00-0.49 [facility], AvonComment on above:Result Comment: Results of the D- Dimer test should always be interpreted in conjunction with the patient's medical history, clinical presentation, and other findings. Results <0.5 mg/L are considered NEGATIVE for VTE. Results >= 0.5 mg/L require further clinical evaluation. Levels of triglyceride up to 600 mg/dl do not interfere with this D-Dimer assay.Performed By: #### DIMER #### [address] [address]Ilom Autoon 24-04-0394Lzke Absolute0.1 x10*3/mcLNormal0.0-0.2 [facility], AvonComment on above:Performed By: #### .Automated Diff #### [address] [address]Okepnvxtg/100 WBC (Bld)0.8 %Normal0.0-1.2BWhite HospitalComment on above:Performed By: #### .Automated Diff #### [address] [address]Xsb Absolute0.2 x10*3/mcLNormal0.0-0.4BWhite HospitalComment on above:Performed By: #### .Automated Diff #### [address] [address]Gdgjkbxnhnq/100 WBC (Bld)1.9 %Normal0.0-6.1BWhite HospitalComment on above:Performed By: #### .Automated Diff #### [address] [address]Drgcthuwkjo (Bld) [#/Vol]3.5 x10*3/mcLNormal1.0-4.8BWhite HospitalComment on above:Performed By: #### .Automated Diff #### [address], [place] [address]Nnnimdnfnyb/100 WBC (Bld)27.3 %Imbrwe46.2-40.8BWhite HospitalComment on above:Performed By: #### .Automated Diff #### [address] [address]Jtku Absolute0.9 x10*3/mcLNormal0.3-1.1BWhite HospitalComment on above:Performed By: #### .Automated Diff #### [address] [address]Cwzkcncgj/100 WBC (Bld)6.9 %Normal4.7-13.9BWhite HospitalComment on above:Performed By: #### .Automated Diff #### [address] [address]Ylflbw Absolute8.1 x10*3/mcLHigh1.8-7.7BWhite HospitalComment on above:Performed By: #### .Automated Diff #### [address] [address]Jmmgrj Auto63.1 %Jxsqqw22.2-70.8BWhite Hospital Comment on above:Performed By: #### .Automated Diff #### [address] [address]AM Clinical Summaryon [id number] Clinical Summary [address] [address] ED Clinical Summary Person Information Name: Ahsan Nielsen Iraida/[facility] Age: 53 Years : 1965 Sex: Male PCP: Marital Status: Single Phone: Race: White Ethnicity: Not or Language: Armenian Visit Reason: Dyspnea; Chest pain - Cardiac Acuity: 2 Enc Type: Observation Med Service: Emergency Medicine Arrival: 11/20/2018 07:05:00 Discharge: LOS: 000 01:54 Checkin: 11/20/2018 07:05:00 Checkout: 11/20/2018 08:59:41 Dispo Type: Admitted to ICU Address: [address] [place] [id number] Provider Notes: History of Present Illness Patient is a 53 year old male presenting to the ED for chest pain. 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 He states that he was feeling baseline this morning. Patient states that the pain is in his left chest and has relieved somesince arriving to the ED. Patient's symptoms include cough that started 2 weeks ago. He denies syncope and fever. He also denies recent travel or strenuous activity. Patient denies medical history ofheart disease, emphysema, COPD, hypertension, and PE/DVT. He [...] normal, Edema: is not appreciated, JVD: is notappreciated. Respiratory: Exam negative for respiratory distress, equal [...] range between ( 27.2 and 40.8 ) [place] Auto: 6.9 % -- Normal range between [...] range between ( 41.0 and 53.0 ) [place] Absolute: 0.9 x10 MCH: 32.5 pg -- [...] EDT, Coronary Care Unit, 11/20/18 8:37:00 EDT, Domonique Jones MD, Conti MD, Paul Anthony Request for Admit 11/20/18 8:34:00 EDT, 11/20/18 8:34:00 EDT, Coronary Care Unit, Jen Bey DO Patient Education Information: [facility] Poison Help line: . [facility] Hotline: [place] Tobacco Quit Line: [place], [place]) [address]: [phone] [place], [place]) [address]: [phone] [facility] [address], [place]: [phone] [facility]onED Note-Nursingon [id number] Note-NursingWriter obtained admission room - CCU charge nurse requests 10 minutes before transport Electronically signed by Rachel Sandra 11/20/18 08:47 EDTNormalSelect Medical [facility], AvonED Note-Physicianon [id number] Note-PhysicianChief Complaint Chest pain, shortness of breath History [...] in his left chest and has relieved somesince arriving to the ED. Patient's symptoms include cough that started 2 weeks ago. He denies syncope and fever. He also denies recent travel or strenuous activity. Patient denies medical history ofheart disease, emphysema, COPD, hypertension, and PE/DVT. He denies family history of heart disease. Patient admits to smoking and denies any other illicit drug use. No other complaints at this time.He does not see a family doctor, Review [...] normal, Edema: is not appreciated, JVD: is notappreciated. Respiratory: Exam negative for respiratory distress, equal [...] this document, created by the medical insurance collector for me, accurately reflects the services I [...] for this work up. I do not thinkthat patients symptoms represents STEMI, at this time [...] obtain history from someone other than the patient:Reviewed [facility] EMR to see if recent visits or hospitalizations. Review and summarized past medical records if pertinent and available in [employer]: Data Interpretation: I have have reviewed returned data from lab. Clinically important interpretation is: CBC is unremarkable Basic Metabolic panel with normal renal function, no significant abnormality Coags normal Initial cardiac enzymes negative d-d-tracy neg EKG: EKG time: 706 Rhythm:[normal sinus] Rate:88 Onarga:[normal] QRS:81 QT interval:399 ST/T wave changes: No [...] the need for admission to the hospital. Thisincludes lab results, radiology results. Patient is in [...] 07:12 63.1 Lymph Auto 11/20/18 07:12 27.3 [place] Auto 11/20/18 07:12 6.9 Eos Auto 11/20/18 07:12 1.9 Basophil Auto 11/20/18 07:12 0.8 Neutro Absolute 11/20/18 07:12 8.1 High Lymph Absolute 11/20/18 07:12 3.5 [place] Absolute 11/20/18 07:12 0.9 Eos Absolute 11/20/18 [...] signed by Ramy Dooley DO 11/20/2018 08:35 [facility] History and Physicalon [id number] and PhysicalChief Complaint dyspnea with left chest discomfort sudden [...] 95.3 (11/20/18) Mean Platelet Volume: 8.6 (11/20/18) [place] Absolute: 0.9 (11/20/18) [place] Auto: 6.9 (11/20/18) Neutro Absolute: 8.1 (11/20/18) Neutro Auto: 63.1 (11/20/18) PT: 9.7 (11/20/18) PTT: 24.2 (11/20/18) RBC: 4.86 (11/20/18) RDW: 13.0 (11/20/18) Assessment/Plan 1. Chest pain Rule out FL Stress test Cardiology consult 2. Dyspnea Repeat [...] signed by Gee Jones MD 11/20/18 10:06 EDTNoSelect [facility] In[facility] Clinical Summaryon [id number] [place] [address] [place] [address] Clinical Summary Person Information Name: Ahsan Nielsen Age: 53 Years : 1965 Sex: Male PCP: Marital Status: Single Phone: PCP: Race: White Ethnicity: Not or Language: Armenian Visit Id: Visit Reason: Dyspnea; Chest pain - Cardiac Speciality: Acuity: Enc Type: Observation Med Service: Emergency Medicine Arrival: 11/20/2018 07:05:00 Discharge: Dispo Type: Admitted to ICU Address: [address] [place] [address] Diagnosis: 1:Chest pain; 2:Dyspnea; 3:Palpitations; 4:Hypertension Discharged [...] range between ( 27.2 and 40.8 ) [place] Auto: 6.9 % -- Normal range between [...] range between ( 41.0 and 53.0 ) [place] Absolute: 0.9 x10 MCH: 32.5 pg -- [...] Attending Physician: Gee Jones MD Consulting Physician: Aleshia BEDOLLA, Lincoln Flynn Referring Physician: Follow up: With: Address: When: Guille Khan [address] [place] [address], [address] [place] [phone] 2CRisk (1) 11/27/2018 15:00:00 Comments: Appointment Scheduled Type Location Start [facility] New Patient Visit 30 Jourdan Redman 11/27/2018 15:00:00 11/27/2018 15:30:00 ConfirmedNormalBlOhioHealth Marion General HospitalNM CARDIOLITE W/EXER STRESSon [id number] CARDIOLITE W/EXER STRESSMyocardial Perfusion Imaging Report Arnie Protocol Height: 178 [...] peak heart rate and blood pressure was [address] mm Hg/min. Stress ECG: The stress ECG [...] Is Signed, Electronically Signed in Other Vendor System)Normal [facility], AvonPTon [id number] Coag (PPP) [Relative time]0.9 {INR}Normal<=3.5BWhite HospitalComment on above:Result Comment: INR has no normal range. INR Therapeutic range is: 2.0-3.0 (AF, CVA, TIAs, DVT prophylaxis, acute DVT) 2.5-3.5 ([facility]h heart valves, recurrent thrombosis/emboli)Performed By: #### PTINR #### [address] [address]SD Coag (PPP) [Time]9.7 sNormal9.2-11.7BWhite HospitalComment on above:Performed By: #### PTINR #### [address] [address]FHMti [id number] Coag (Bld) [Time]24.2 lAtmdsp29.6-27.7 [facility], AvonComment on above:Performed By: #### PTT #### [address] [address]IY Chest 1 Viewon [id number] Chest 1 ViewProcedure: Portable AP view of the chest. Clinical [...] Is Signed, Electronically Signed in Other Vendor System)Normal [facility] AvonXR Chest 2 Viewson [id number] Chest 2 Views Views: PA and lateral Indication: Follow-up cough shortness of breath in [...] Is Signed, Electronically Signed in Other Vendor System)Normal [facility], AvonCult,Urineon [id number],UrineSpecimen Description .CLEAN CATCH URINE Performed at [address] [place] [address] Special Requests NOT REPORTEDCulture NO GROWTH Performed at [place] [address] [place] [address] Report Status FINAL 10/25/2017NormalSt. Mary'S Medical CenterComment on above:Performed By: #### URC ####[facility] [place] [phone] [place] [address] CBC with Diffon [id number]. Basophil0.05 k/uLNormal 0.00-0.20MerSumma Health HospitalComment on above:Performed By: #### CDP, CP, LIP ####[address] [place] [address] Abs.Neutrophil (Seg)5.37 k/uLNormal1.50-8.10[facility] HospitalComment on above:Performed By: #### CDP, CP, LIP ####[address] [place] [id number] Basophils/100 WBC Auto (Bld)1 %Normal0-2[facility] HospitalComment on above:Performed By: #### CDP, CP, LIP ####[address] [place] [address] Ozhogdjitud3.57 10*3/uL High0.00-0.44[facility] HospitalComment on above:Performed By: #### CDP, CP, LIP ####[address] [place] [id number] Eosinophils/100 leukocytes7 %High1-4MerSumma Health HospitalComment on above: Performed By: #### CDP, CP, LIP ####[address] [place] [address] Erythrocyte distribution width Auto Ratio (RBC) 13.4 %Ujuzat09.8-14.4St. Mary'S Medical CenterComment on above:Performed By: #### CDP, CP, LIP ####[address] [place] [address] Erythrocytes (RBC)0.0 per [address]BC[address]0St[address] Mary'S Medical CenterComment on above:Performed By: #### CDP, CP, LIP ####[address] [place] [address] Erythrocytes (RBC)5.69 10*6/uLNormal4.21-5.77St. Mary'S Medical CenterComment on above:Performed By: #### CASTRO, CP, LIP ####[address] [place] [address] Granulocytes/100 WBC (Bld)0.04 k/uLNormal0.00-0.30St. Mary'S Medical CenterComment on above:Result Comment: Performed at [address] [place] [address] Performed By: #### CASTRO, CP, LIP ####[address] [place] [address] Hematocrit (HCT)51.0 %High40.7-50.3MHighland District Hospital Comment on above:Performed By: #### CDP, CP, LIP ####[address] [place] [address] Hemoglobin mass conc (Bld)18.0 g/dL High13.0-17.0St. Mary'S Medical CenterComment on above:Performed By: #### CDP, CP, LIP ####[address] [place] [address] Immature granulocytes #/vol (Bld)1 %Yayk3Xqxqk [facility]iffin HospitalComment on above: Performed By: #### CASTRO, CP, LIP ####[address] , [place] [address] Ojnbobvcnyw8.35 10*3/uLNormal1.10-3.70MerSumma Health HospitalComment on above:Performed By: #### CASTRO, CP, LIP ####[address] , [place] [address] Lymphocytes/100 zxujqgvkpi17 %Tuh83-11Wdjxy [facility]iffin HospitalComment on above:Performed By: #### CASTRO, CP, LIP ####[address] , [place] [address] TGW50.6 pkBcsiwu69.2-33.5MerSumma Health HospitalComment on above:Performed By: #### CASTRO CP, LIP ####[address] , [place] [address] MCHC mass conc (RBC)35.3 g/hAZczf41.4-34.8[facility] HospitalComment on above:Performed By: #### CASTRO, CP, LIP ####[address] , [place] [address] HLE94.6 fLNormal 82.6-102.9[facility] HospitalComment on above:Performed By: #### CASTRO, CP, LIP ####[address] , [place] [address] Monocytes1.36 10*3/uLHigh0.10-1.20[facility] HospitalComment on above: Performed By: #### CASTRO, CP, LIP ####[address] , [place] [address] Monocytes/100 xxgtcaejva63 %High3-12MerSumma Health HospitalComment on above:Performed By: #### CASTRO, CP, LIP ####[address] [place] [address] Neutrophil (Seg)61 % Pncyyz58-72Nbujz [facility] HospitalComment on above:Performed By: #### CDP, CP, LIP ####[address] [place] [address] Platelet mean volume (PMV)10.5 fLNormal8.1-13.5[facility] HospitalComment on above:Performed By: #### CDP, CP, LIP ####[address] [place] [address] Hhagvrmjt541 10*3/sVJprgrm967-982Krryb [facility] HospitalComment on above:Performed By: #### CDP, CP, LIP ####[address] [place] [address] WBC (Leukocytes)8.7 10*3/uLNormal3.5-11.3[facility] HospitalComment on above:Performed By: #### CDP, CP, LIP ####[address] , [place] [address] Auto Diff PerformedNOT REPORTEDNormalMercy Memorial Hospital on above:Performed By: #### CDP, CP, LIP ####[address] [place] [address] Erythrocyte morphologyNOT REPORTED NormalUniversity Hospitals Ahuja Medical Center HospitalComment on above:Performed By: #### CDP, CP, LIP ####[address] , [facility]83 PlateletsNOT REPORTEDNormalUniversity Hospitals A[facility] Center HospitalComment on above:Performed By: #### CDP, CP, LIP ####[address] [place] [address] WBC MorphologyNOT REPORTEDNormalUniversity Hospitals A[facility] Center HospitalComment on above:Performed By: #### CDP, CP, LIP ####[address] , [place] [address] Comp Metabolic Profon 10-24-2017(cont.) NormalSt. Mary'S Medical CenterComment on above:Result Comment: Average GFR for 50- 59 years old: 93 mL/min/1.73sq mChronic Kidney Disease: <60 mL/min/1.73sq mKidney failure: <15 mL/min/1.73sq meGFR calculated using average adult body mass. Additional eGFR calculator available at:http://www.On-Q-ity/multiple_crcl_2012.htmPerformed By: #### TAMARA ERAZO, LIP ####[address] [place] [id number] Alanine aminotransferase (ALT)18 U/LNormal5-41St. Mary'S Medical CenterComment on above:Performed By: #### TAMARA ERAZO, LIP ####[address] , [facility]83 Mqtyrsn7.2 g/dLNormal3.5-5.2MercBristol HospitalComment on above:Performed By: #### TAMARA ERAZO, LIP ####[address] , [facility]83 Albumin/Globulin Ratio 1.2 {ratio}Normal1.0-2.5St. Mary'S Medical CenterComment on above:Performed By: #### TAMARA ERAZO, LIP ####[address] , [facility]83 Alkaline Phos74 U/KFwfbhm37-903RcmssSt. Mary'S Medical CenterComment on above:Performed By: #### TAMARA ERAZO, LIP ####[address] [place] [address] Anion gap16 mmol/LNormal9-17St. Mary'S Medical CenterComment on above:Performed By: #### TAMARA ERAZO, LIP ####[address] [place] [address] Aspartate aminotransferase (AST)24 U/LNormal<40[facility] HospitalComment on above: Performed By: #### CASTRO, CP, LIP ####[address] , [facility]83 Bilirubin Ql (U)0.64 mg/dLNormal0.3-1.2MMarymount Hospital HospitalComment on above:Performed By: #### CASTRO, CP, LIP ####[address] , [place] [address] BUN/CRE Hhvqw73Vyuvyc 9-20[facility] HospitalComment on above:Performed By: #### CASTRO CP, LIP ####[address] , [place] [address] Calcium 9.2 mg/dLNormal8.6-10.4[facility] HospitalComment on above:Performed By: #### CASTRO, CP, LIP ####[address] , [place] [address] Dxvcrqtd33 mmol/BYaj07-861RnjibSt. Mary'S Medical CenterComment on above:Performed By: #### CASTRO, CP, LIP ####[address] , [place] [address] RK402 mmol/HBuwbqx03-31MtwcwSt. Mary'S Medical Center Comment on above:Performed By: #### CASTRO, CP, LIP ####[address] , [facility]83 Wqqcqzeace9.94 mg/dLNormal0.70-1.20 St[facility]'S Medical CenterComment on above:Performed By: #### CASTRO, CP, LIP ####[address] , [facility]83 eGFR (non-black) mL/min/{1.73_m2}Normal>60[facility] HospitalComment on above:Performed By: #### CDP, CP, LIP ####[address] [place] [address] Glucose mass iqyw078 mg/wPArql40-96NqvzpHighland District Hospital Comment on above:Performed By: #### CDP, CP, LIP ####[address] [place] [address] Potassium molar conc4.8 mmol/LNormal 3.7-5.3MMarymount Hospital HospitalComment on above:Performed By: #### CDP, CP, LIP ####[address] , [facility]83 Protein 7.6 g/dLNormal6.4-8.3MMarymount Hospital HospitalComment on above:Performed By: #### CASTRO, CP, LIP ####[address] , [facility]83 Lnrrsh944 mmol/EAah195-854Wivrx [facility]iffin HospitalComment on above:Performed By: #### CASTRO CP, LIP ####[address] [place] [phone]:NormalSt. Mary'S Medical CenterComment on above:Result Comment: Stage 1: Some kidney damage normal GFRStage 2: Mild kidney damage GFR 60-89Stage 3:Moderate kidney damage GFR 30-59Stage 4: Severe kidney damage GFR 15-29Stage 5: Severe kidney damage GFR <15ESRD - chronic treatment by dialysis or transplantPerformed at [address] [place] [address] Performed By: #### CASTRO, CP, LIP ####[address] [place] [address] Urea ydcyinkk37 mg/dLNormal6-20[facility] HospitalComment on above:Performed By: #### CASTRO, CP, LIP ####[address] [place] [address] Lipaseon 47-59-2361Nooiab05 U/NVzrwmj42-49Ihceg [facility] HospitalComment on above: Result Comment: Performed at [address] [place] [address] Performed By: #### CDP, CP, LIP ####[address] [place] [address] Urinalysis w/ Microon 10-24-2017-----NormalMerSumma Health HospitalComment on above:Performed By: #### UAMIC ####[address] [place] [address] Acetaminophen mass conc1+AbnormalNEGUniversity Hospitals Ahuja Medical Center HospitalComment on above: Performed By: #### UAMIC ####[address] [place] [address] Bilirubin (direct)NegativeNormalNEGSt. Mary'S Medical Center Comment on above:Performed By: #### UAMIC ####[address] [place] [address] Hemoglobin mass conc (Bld)Negative NormalNEGSt. Mary'S Medical CenterComment on above:Performed By: #### UAMIC ####[address] [place] [address] Nitrite,UrNegativeNormalNEGUniversity Hospitals Ahuja Medical Center HospitalComment on above:Performed By: #### UAMIC ####[address] [place] [address] TurbidityCLEARNormalCLEARUniversity Hospitals Ahuja Medical Center HospitalComment on above:Performed By: #### UAMIC ####[address] [place] [address] Urine WBC's0 TO 0Psrjgx6-5PcfguSt. Mary'S Medical Center Comment on above:Performed By: #### UAMIC ####[address] [place] [address] Urine, colorYELLOWNormalYELMerSumma Health HospitalComment on above:Performed By: #### UAMIC ####[address] [place] [address] Urine, epithelial cells in sediment 0 TO 7Gxpvfe1-8Kpfzv [facility] HospitalComment on above:Result Comment: Performed at [address] [place] [address] Performed By: #### UAMIC ####[address] [place] [address] Urine, erythrocytes0 TO 5Icpawm3-8Rbvkv [facility] HospitalComment on above:Performed By: #### UAMIC ####[address] [place] [address] Urine, glucose presenceNegative NormalNEGMercy Beverly Hills HospitalComment on above:Performed By: #### UAMIC ####[address] [place] [address] Urine, leukocyte esterase presenceNegativeNormalNEGMercy Beverly Hills HospitalComment on above:Performed By: #### UAMIC ####[address] [place] [address] Urine, pH6.5 [pH]Normal5.0-9.0MerSumma Health HospitalComment on above:Performed By: #### UAMIC ####[address] [place] [address] Urine, protein presenceNegative NormalNEGMerSumma Health HospitalComment on above:Performed By: #### UAMIC ####[address] [place] [address] Urine, specific gravity<1.952Dir5.010-1.020MerSumma Health HospitalComment on above: Performed By: #### UAMIC ####[address] [place] [address] Urobilinogen,UrNormalNormalNORMUniversity [facility]als [facility] HospitalComment on above:Performed By: #### UAMIC ####[address] [place] [address] CommentNOT REPORTEDNormalUniversity Hospitals Ahuja Medical Center Hospital [facility] on above:Performed By: #### UAMIC ####[address] [place] [address] Epithelial, RenalNOT REPORTEDNormal0 [facility] HospitalComment on above:Performed By: #### UAMIC ####[address] [place] [address] Mucus StrandsNOT REPORTEDNormalNONEMeConerly Critical Care Hospital HospitalComment on above:Performed By: #### UAMIC ####[address] [place] [address] Other ObservationsNOT REPORTEDNormalNREQUniversity Hospitals Ahuja Medical Center HospitalComment on above: Performed By: #### UAMIC ####[address] [place] [address] TrichomonasNOT REPORTEDNormalNONEMeConerly Critical Care Hospital HospitalComment on above:Performed By: #### UAMIC ####[address] [place] [address] Urine, amorphous sediment presence in sediment NOT REPORTEDNormalNONEMeConerly Critical Care Hospital HospitalComment on above:Performed By: #### UAMIC ####[address] [place] [address] Urine, bacteria in sedimentNOT REPORTEDNormalNONEMeConerly Critical Care Hospital HospitalComment on above:Performed By: #### UAMIC ####[address] [place] [address] Urine, casts in sedimentNOT REPORTEDNormalUniversity Hospitals Ahuja Medical Center HospitalComment on above:Performed By: #### UAMIC ####[address] , [place] [address] Urine, crystals in sedimentNOT REPORTEDThe Surgical Hospital at SouthwoodsComment on above:Performed By: #### UAMIC ####[address] , [place] [address] Urine, yeast presence in sedimentNOT REPORTEDThe Surgical Hospital at SouthwoodsComment on above:Performed By: #### UAMIC ####[address] , [place] [address] Discharge Summaryon [id number] IP Note OR TranscriptionNoFirelands Regional Medical Center Vital Signs Date TimeVital SignValuePerforming YklwglcswYihusprx95-90-5222 15:57-0500Body itlknp269.8 Nazanin Damonoll TYPESETTING MACHINE OPERATOR/TENDER Work Phone: [facility] HospitalUdmywtymcl81-24-4175 15:57-0500Body mass index (BMI) [Ratio]25.54 kg/r5XfonmMichelle Banuelos TYPESETTING MACHINE OPERATOR/TENDER Work Phone: [facility] HospitalSqikflvifg40-03-0021 15:57-0500Body nquuob62.74 kgMichelle Banuelos TYPESETTING MACHINE OPERATOR/TENDER Work Phone: [facility] HospitalRpkvhtgwbj62-15-7349 15:57-0500Diastolic blood wasekopd05 mm[Hg]Michelle Banuelos TYPESETTING MACHINE OPERATOR/TENDER Work Phone: [facility] HospitalChxjcdczjn19-12-1857 15:57-0500Heart rate69 /min Michelle Banuelos TYPESETTING MACHINE OPERATOR/TENDER Work Phone: [facility]OP[facility] CenterCzrirwfwwj83-24-8929 15:57-0146RzL9% (BldA) [Mass fraction]96 %Michelle Banuelos TYPESETTING MACHINE OPERATOR/TENDER Work Phone: [facility]OPark[facility] Health CenterDnmpkorrvl66-40-5138 15:57-0500Systolic blood pvnyfulx855 mm[Hg]Michelle Banuelos TYPESETTING MACHINE OPERATOR/TENDER Work Phone: [facility] HospitalVqygbelfip84-26-0006 10:10-0400Body drvriv979.8 cmAPRN Emerald Miranda Work Phone: [facility]09-19-2024 10:10-0400 Body mass index (BMI) [Ratio]25.1 kg/m2PRIMO Jean Work Phone: [facility]09-19-2024 10:10-0400 Body vncpze18.37 kgPRIMO Corbin McNeal Work Phone: [facility]09-17-2024 16:25-0400 Body .8 cmSlydia Banuelos TYPESETTING MACHINE OPERATOR/TENDER Work Phone: [facility] HospitalLcootmyrss73-90-2702 16:25-0400Body mass index (BMI) [Ratio]25.34 kg/w5Pjzkavasquez Banuelos TYPESETTING MACHINE OPERATOR/TENDER Work Phone: [facility] HospitalVizaommacs83-92-5516 16:25-0400Body ufofye69.11 kgMichelle Banuelos TYPESETTING MACHINE OPERATOR/TENDER Work Phone: [facility] HospitalNpodvxdaje44-76-6739 16:25-0400Diastolic blood cflazwoh65 mm[Hg]Michelle Banuelos TYPESETTING MACHINE OPERATOR/TENDER Work Phone: [facility] HospitalSxrftkyhjg13-72-7431 16:25-0400Heart rate88 /min Michelle Banuelos TYPESETTING MACHINE OPERATOR/TENDER Work Phone: [facility] HospitalFyyexuuhfp10-19-4374 16:25-4422UjZ0% (BldA) [Mass fraction]96 %Michelle Banuelos TYPESETTING MACHINE OPERATOR/TENDER Work Phone: [facility] HospitalJarnauejbz28-91-9379 16:25-0400Systolic blood mmdprcec461 mm[Hg]Michelle Banuelos TYPESETTING MACHINE OPERATOR/TENDER Work Phone: [facility] HospitalRwgkzsttmu16-85-5395 12:45-0400Body fyajyd138.8 cmSlydia Banuelos TYPESETTING MACHINE OPERATOR/TENDER Work Phone: [facility] HospitalWxjfffegkr16-17-9662 12:45-0400Body mass index (BMI) [Ratio]25.31 kg/m8Mgthlvasquez Banuelos TYPESETTING MACHINE OPERATOR/TENDER Work Phone: [facility] HospitalMlpgywlrcf77-53-5637 12:45-0400Body aiuzhx92.02 kgMichelle Banuelos TYPESETTING MACHINE OPERATOR/TENDER Work Phone: [place] [address]Ewfwnknogd28-66-6856 12:45-0400Diastolic blood gtupfhhe52 mm[Hg]Michelle Banuelos TYPESETTING MACHINE OPERATOR/TENDER Work Phone: noms Niuzappojw55-15-5818 12:45-0400Heart rate58 /min Michelle Banuelos TYPESETTING MACHINE OPERATOR/TENDER Work Phone: noms Anhbdbbwop32-86-1333 12:45-4114ZyV5% (BldA) [Mass fraction]90 %Michelle Banuelos TYPESETTING MACHINE OPERATOR/TENDER Work Phone: noParkland Health CenterSvkzqfpnyp52-52-6278 12:45-0400Systolic blood sgrogzfb340 mm[Hg]Michelle Banuelos TYPESETTING MACHINE OPERATOR/TENDER Work Phone: noMS Healthcare Encounters Encounter DateEncounter TypeCare ProviderFacilityStart: 08-25-2024 End: 74-87-7505qbyavyfvfrYEGWHAultman Alliance Community Hospitaltart: 07-12-2024 End: 54-86-0372rormgtxejpFJRXYAultman Alliance Community Hospitaltart: 06-15-2024 End: 05-48-2603Fzkofg outpatient visit 15 minutesMichelle Damonoll TYPESETTING MACHINE OPERATOR/TENDER Work Phone: noms [place] [address] R[address]TEComment on above:Loss of consciousness (CMS/HCC) (Primary Dx); Orthostatic hypotension; Episodic migraine (CMS/HCC); Abnormal finding on MRI of brain; History of hepatitis B; Numbness of right lower extremityStart: 06-15-2024 End: 78-93-9993fttuleodntQHTSE CARROLLNot AvailableStart: 05-05-2024 End: 74-93-6308Jchyrdo encounter procedurePRIMO Jean Work Phone: [facility]-MRI [address] [place] Work Phone: Start: 05-05-2024 End: 83-73-8175uunqcmeawjIXKI Faith McNeal Work Phone: [facility] Work Phone: Start: 04-03-2024 End: 13-81-2765Jkguiyu encounter procedurePRIMO Jean Work Phone: [facility]-Ultrasound [address] [place] Work Phone: Start: 04-03-2024 End: 11-47-1335lcbbzxmtrwZETV Faith Miranda Work Phone: [facility] Work Phone: Start: 03-31-2024 End: 81-18-1317Wlxjloa encounter procedureAPRKarissa Emerald Miranda Work Phone: [facility]-Digestive Health Work Phone: Start: 03-31-2024 End: 69-11-8542bdbiztismkKKHP Emerald Miranda Work Phone: [facility] Work Phone: Start: 03-29-2024 End: 78-01-3855dhgwnrtqbuEWAHY CARROLLNot AvailableStart: 03-25-2024 End: 89-11-3336Ahmuqrx encounter procedureAPRKarissa Emerald Miranda Work Phone: [facility]-Lab [address] [place] Work Phone: Start: 03-25-2024 End: 95-83-7376jpgejczehmOXKQ Emerald Miranda Work Phone: [facility] Work Phone: Start: 03-25-2024 End: 25-24-4476Zuvgjfh encounter procedureAPRKarissa Emerald Miranda Work Phone: [facility] Gastroenterology Work Phone: Start: 03-23-2024 End: 06-19-1906mvxbrqefhkBISFF CARROLLNot AvailableStart: 03-23-2024 End: 38-00-2810Ypygdm outpatient visit 25 minutesSavasquez Banuelos TYPESETTING MACHINE OPERATOR/TENDER Work Phone: noms [place] STATE ROUTEComment on above:Loss of consciousness (CMS/HCC) (Primary Dx); Orthostatic hypotension; Abnormal finding on MRI of brain; History of hepatitis B; Numbness of right lower extremityStart: 03-23-2024 End: 85-84-4665Zngbtr Augustine Banuelos TYPESETTING MACHINE OPERATOR/TENDER Work Phone: [facility] [place] STATE R[address]TEStart: 03-23-2024 End: 52-99-1437Mmaavn Augustine Banuelos TYPESETTING MACHINE OPERATOR/TENDER Work Phone: N[facility] [place] STATE ROUTEStart: 03-10-2024 End: 52-56-7222cnuvpsvkdoDZZXJSouthview Medical Centertart: 03-04-2024 End: 22-61-6882tcuzgmdbcsTERJCSUGSFI HASSETTNot AvailableStart: 03-01-2024 End: 63-59-7931sajptsksdmKNFZI CARROLLNot AvailableStart: 02-24-2024 End: 86-61-1823Xuvkdo Augustine Banuelos TYPESETTING MACHINE OPERATOR/TENDER Work Phone: N[facility]S [place] R[address]TEStart: 02-24-2024 End: 58-00-9653Selejd Augustine Banuelos TYPESETTING MACHINE OPERATOR/TENDER Work Phone: N[facility] [place] [address] R[address]TEStart: 02-24-2024 End: 91-31-6261Ipgmcq outpatient visit 25 minutesSavasquez Banuelos TYPESETTING MACHINE OPERATOR/TENDER Work Phone: noMS [place] STATE ROUTEComment on above:Loss of consciousness (CMS/HCC) (Primary Dx); Orthostatic hypotension; Abnormal finding on MRI of brain; Numbness of right lower extremity; History of hepatitis BStart: 02-24-2024 End: 86-18-4537jqdnavqqrbGWPCY CARROLLNot AvailableStart: 02-06-2024 End: 58-35-5597Hyhtney encounter procedurePRIMO Jean Work Phone: [facility]-MRI [address] [place] Work Phone: Start: 02-06-2024 End: 23-44-3084xlqnxlibekNWRG Faith McNeal Work Phone: [facility] Work Phone: Start: 02-03-2024 End: 20-01-9895hvjwcvucosGDIAUFPMEPY HASSETTNot AvailableStart: 02-02-2024 End: 74-24-1204drhwkuhftzVBSTO CARROLLNot AvailableStart: 01-20-2024 End: 66-05-5746tpcwpsqpbiBNNTK CARROLLNot AvailableStart: 12-24-2023 End: 68-94-4133gbrosswvtqAQATQPEJHFW HASSETTNot AvailableStart: 12-23-2023 End: 14-03-7378xlnrsgeyglYFGUVVPIOXT HASSETTNot AvailableStart: 68-24-6300Nmz- patient / Non-visitAPRN Emerald BrownNeal Work Phone: [facility] Gastroenterology Work Phone: Start: 11-20-2018 End: 89-83-1402Egotoev encounter procedurePAUL BEENA CONTIFacility:[facility] HospitalStart: 10-24-2017 End: 05-86-5161Ayorearvx department patient visitSMercy Health Fairfield Hospitaltart: 12-27-2016 End: 19-51-8754YwwuhjrdpzZLHXMJDaviess Community Hospital Procedures DateProcedureProcedure DetailPerforming ClinicianStart: 04-03-2024 Ultrasonography of liverAPRN Emerald BrownNeal Work Phone: Start: 51-40-6386Caifcacwwq elastography of liverAPRN Emerald BrownNeal Work Phone: Start: 95-81-2700YAH of headAPRN Emerald BrownNeal Work Phone: Start: 51-63-3222RYXGLOP COMMUNICATIONSASCENSION GENESYS [facility] Start: 58-76-0836WROVDTXIXW WITH MICROSCOPICSTEVEN COPEPEACEHEALTH ST. JOSEPH MEDICAL CENTERtart: 10-24-2017 URINE CULTURESTEHENRY FORD COTTAGE HOSPITALtart: 54-61-4341DLN WITH AUTO DIFFERENTIALSTEVEN M[facility] SYSTEMtart: 76-33-2447ARWKVLOHEXAPY METABOLIC PANELSTEHENRY FORD COTTAGE HOSPITALtart: 04-43-9302ZLLARGHYNSGT COPELANDStart: 10-35-3445NILYFQ PERIPHERAL IVSTBRONSON [facility] Plan of Treatment DateCare ActivityDetailAuthorStart: 12-21-2024 End: 29-86-0485Eeaqmla encounter rslfugzzo81/17/2025 9:40 AM EDT [facility] [address] [place] [address] Michelle Banuelos NP [address] [place] [address] [facility] [place] [facility] ROUTEStart: 06-15-2024 End: 17-37-2474Rgpheul encounter szjkidrby92/10/2024 4:00 PM EST [facility] [place] [facility] [address] [place] [address] Michelle Banuelos NP [address] [place] [address] [facility] ROUTEStart: 79-04-7651EV Abdomen WO and W contrast [facility]ertart: 13-18-0592VDI of abdomen with contrastMR abdomen wo/w [facility] Centertart: 75-03-1066MdwfsllrtTogus VA Medical Centertart: 03-29-2024 End: 31-81-1386Evvevzeg Xztgeal1703/29/2024 8:40 AM EDT Clinical Support [facility] [address] [place], [id number] [facility] ROUTEStart: 85-81-4523Ethfioheioqpk [Mass/volume] in Serum or PlasmaTogus VA Medical Centertart: 39-80-3636Rjyrswqky A virus Ab [Presence] in Serum by ImmunoassayTogus VA Medical Centertart: 42-55-6578Frfktwyzw A virus antibody, IgM [facility] Start: 64-56-0550Dxencslen B core antibody measurementTogus VA Medical Centertart: 75-29-1700Vrulnadkr B core antibody measurement, IgM [facility] Centertart: 83-80-5452Kohvkkquc B virus e Ab [Presence] in Serum or Plasma by ImmunoassayTogus VA Medical Centertart: 03-25-2024 Hepatitis B virus e Ag [Presence] in Serum or Plasma by ImmunoassayTogus VA Medical Centertart: 10-14-8377Anjzypzsb B virus surface Ab [Presence] in SerumTogus VA Medical Centertart: 19-16-8379Njqhddrhvhv of Hepatitis delta virus antibodyTogus VA Medical Centertart: 03-25-2024 [facility]ertart: 03-23-2024 End: 50-52-0649Sjkltjb encounter bpmhsoxvk09/17/2024 4:20 PM EDT Office Visit [facility] [address] [place] [address] Michelle Banuelos, TYPESETTING MACHINE OPERATOR/TENDER [address] [place] [address] [facility] ROUTEStart: 03-23-2024 End: 81-84-3127OV.doppler Carotid arteries - bilateralVascular US carotid artery duplex bilateral Imaging Routine Loss of consciousness (CMS/HCC) Expected: 03/23/2024 (Approximate), Expires: 03/23/2025[facility] Work Phone: comment on above:Expected: 03/23/2024 (Approximate), Expires: 03/23/2025Start: 03-04-2024 End: 19-37-8888Yemvwdww Hklwwri1603/04/2024 8:00 AM EDT Clinical Support [place] [id number], [id number] [facility] ROUTEStart: 03-01-2024 End: 42-06-0602Qkkdbfdrkhby / ancillary services qijuquezlc20/26/2024 2:45 PM EDT Ancillary Procedure [facility] [address] [place] [address] [phone] HOSPITAL ROUTEStart: 02-24-2024 End: 66-74-0411Yzyw EEG 36-84 HoursHome EEG 36-84 Hours Neurology Routine Loss of consciousness (CMS/HCC) Expected: 02/24/2024 (Approximate), Expires: 02/23/2025[facility] Work Phone: comment on above:Expected: 02/24/2024 (Approximate), Expires: 02/23/2025Start: 02-24-2024 End: 54-84-9955Gpgdjdj encounter zkyjiwnoa30/20/2024 1:00 PM EDT Office Visit [facility] [place] [address] [place] [address] Michelle Banuelos, TYPESETTING MACHINE OPERATOR/TENDER [address] [place] [address] ArrivedNOMS [facility] ROUTEComment on above:Arrived Alpha 1 antitrypsin [Mass/volume] in Serum or PlasmaDayton Children'S HospitalAlpha 1 antitrypsin phenotyping [Identifier] in Serum or Plasma by ImmunofixationDayton Children'S HospitalHefrank r. howard memorial hospital B virus DNA [#/volume] (viral load) in Serum or Plasma by CHAUNCEY with probe detectionDayton Children'S HospitalHefrank r. [facility] hospital B virus DNA [log units/volume] (viral load) in Serum or Plasma by CHAUNCEY with probe detectionDayton Children'S HospitalHefrank r. [facility]ard memorial hospital B virus DNA [Units/volume] (viral load) in Serum or Plasma by CHAUNCEY with probe detectionDayton Children'S HospitalHefrank r. [facility] hospital B virus surface Ag [Presence] in Serum or Plasma by ImmunoassayDayton Children'S Hospital Hepatitis C virus IgG Ab [Presence] in Serum or Plasma by ImmunoassayDayton Children'S HospitalHFE gene mutations found [Identifier] in Blood or Tissue by Molecular genetics method NominalDayton Children'S HospitalHIV 1+2 Ab+HIV1 p24 Ag [Presence] in Serum or Plasma by ImmunoassayDayton Children'S HospitalUS LiverDayton Children'S Hospital Payers DatePayer CategoryPayerPolicy ID2020MedicaidBUCKEYEBU[place] MEDICAID [place] [id number] 2020-Present [address] [place] [id number] 2020Medicaid (Managed Care)[place] [employer] Member Subscriber Plan / Payer (Effective 2020-Present) Name: Ahsan Nielsen Relation to Subscriber: Self Name: Ahsan Nielsen Payer ID: Not on file Group ID: Not on file Type: Not on file Address: [address] [id number]-bcw [id number] 2.16840.1.187805.3.57[id number] 2.16840.1.610700.3.57[id number] 2.840.1.126340.3.579.[id number] 2.16840.1.690830.3.57[id number] 2.840.1.517816.3.57[id number] 2.16840.1.748621.3.57[id number] 2.16840.1.119337.3.57[id number] 2.16840.1.827658.3.57[id number] 2.16840.1.172858.3.57[id number] 2.16840.1.459933.3.57[id number] 2.16840.1.275971.3.57[id number] 2..840.1.885[id number] 2..840.1.931648.3.579.2.531 [id number] 2.16.840.1.09[id number] 2..840.1.89[id number] 2..840.1.877701.3.579.2.531 [id number] 2.840.1.469688.3.579.2.531 Social History DateTypeDetailFacilityTobacco smoking status NHISUnknown if ever smokedGood Samaritan Hospital Work Phone: Start: 08-75-8959Gzy Assigned At [facility]ertart: 1980 End: 80-46-7252Fqbfeat smoking status NHISSmokes tobacco dailyNOMS Healthcare Start: 1980 End: 69-14-4315Dqdeoqk of tobacco useCigarette SmokerNOMS HealthcareStart: 01-20-2024 End: 11-21-0391Obmrhjx use and exposureSmokeless tobacco non-userNOMS Healthcare Start: 01-20-2024 End: 03-30-4760Xjprkroej beverage intakeCurrent drinker of alcohol (finding)[facility] HealthcareStart: 01-20-2024 End: 73-47-0089Mbaiyfcnu beverage intakeNOMS HealthcareStart: 01-20-2024 End: 01-19-3622Ltoqdgy use panelNOMS HealthcareStart: 09-52-1528Shh assigned at [facility] centerNot on [facility] Healthcare Goals DatePatient GoalDesired Activity/State Clinical Notes 02-24-2024 to 08-25-2024 Note Date & AbriTtjxJhmdxawd08-38-4425 [facility] Reason for [...] is a longtime smoker. He presented to [facility] last month for syncope. He [...] directed. Do not cr (more content not included)...[facility]01-06-2025 [facility] Reason for [...] is a longtime smoker. He presented to [facility] ED last month for syncope. He [...] 80.7 kg (178 lb) (more content not included)...[facility]12-10-2024 History of Present illness Narrative* Michelle Banuelos, NEL - 06/15/2024 4:00 PM EST Images from the original note were not [...] time. He reports intermittent dizziness but states thisonly occurs after significant coughing spells. He believes he stays well hydrated. The patient has approximately 2 to 3 headaches per week. These are chronic and started many years ago. He states they are located in the occipital region or, between the eyes. He describes them as throbbing. Severity is mild. They are accompanied by increased sensitivity to light and sounds. Theyare not accompanied by nausea, vomiting, visual disturbance, [...] to person, place, and time. Recent and remotememory are intact. Speech is clear and fluent [...] wrist extensors , wrist flexor , and gas generator operator strength 5/5. LUE strength deltoid , biceps , triceps , wrist extensors , wrist flexor , and gas generator operator strength 5/5. RLE strength iliopsoas, quadriceps, tibialis [...] reflex 2+. LLE Knee reflex 2+. Coordination: Vljetm-ak-eywx testing normal. Rapid alternating movements are normal. Gait: Normal. Review and summary of old records: Carotid ultrasound at [facility] on 03/29/24: No hemodynamically significant stenosis noted. 1-29% stenosis right and left ICA. Antegrade flow right and left VA. Normal triphasic waveforms noted right and left SCA. Focal area of calcific plaque in the proximal ICAs bilaterally. Ambulatory EEG in 02/2024: Normal 65-hour ambulatory EEG. Orthostatic vital signs at [facility] on 02/24/2024: Positive. Laying - blood pressure 108/71, heart rate 57 beats/min Sitting - blood pressure 144/82, heart rate 59 beats/min Standing for 3 minutes - blood pressure 120/72, heart rate 62 beats/min MRI of the brain w and w/o contrast at [facility] on 02/06/2024: A punctate microhemorrhage seen involving left parietal lobe on the GRE imaging. Cortical atrophy with mild chronic microvascular ischemic changes which appeared to extend into the kylee. EMG of the right lower extremity at [facility] on 02/03/2024: Normal. No evidence [...] orders for this visit: Loss of consciousness (CMS/[facility]) The patient has a history of episodic [...] week, and these are effectively relieved by fdjl-azq-yiyzrea Tylenol. He denies any atypical headache features, and neurologic exam isunremarkable today. PLAN: - I offered to prescribe [...] NP [facility] documented in this encounterRipley County Memorial HospitalClqnmecyfh64-20-8476 Evaluation note* Author Ayanna [facility] Memorial HospitalAuthoredSeptember 2023 10:89yo01-brbo-jzc man referred to the liver clinic for evaluation of positive hepatitis B test. Patient had elevated liver enzymes and positive testing for hepatitis B in another institution few months ago. History of alcohol use for 40 years. -Will check viral hepatitis serologies and will check HBV DNA and HDV antibody -Will arrange for ultrasound liver -Will arrange for [facility] Work Phone: 1(194) 813-273209-17-2024 History of Present illness Narrative* Michelle Banuelos [...] wrist extensors , wrist flexor , and gas generator operator strength 5/5. LUE strength deltoid , biceps , triceps , wrist extensors , wrist flexor , and gas generator operator strength 5/5. RLE strength iliopsoas, quadriceps, tibialis [...] reflex 2+. LLE Knee reflex 2+. Coordination: Ijhdqx-eo-crnk testing normal. Rapid alternating movements are normal. Gait: Normal. Review and summary of old records: Ambulatory EEG in 02/2024: Normal 65-hour ambulatory EEG. There was no epileptiform activity recorded during the record. There were no seizures recorded during the record. Orthostatic vital signs at [facility] on 02/24/2024: Positive. Laying - blood pressure 108/71, heart rate 57 beats/min Sitting - blood pressure 144/82, heart rate 59 beats/min Standing for 3 minutes - blood pressure 120/72, heart rate 62 beats/min MRI of the brain w and w/o contrast [place] [facility] [place] 02/06/2024: A punctate microhemorrhage seen involving left parietal lobe on the GRE imaging. Cortical atrophy with mild chronic microvascular ischemic changes which appeared to extend into the kylee. EMG of the right lower extremity at [facility] on 02/03/2024: Normal. No evidence [...] NP [facility] documented in this [facility]09-17-2024 Instructions* Patient Instructions* Michelle Banuelos NP - 03/23/2024 4:20 PM EDT - Carotid ultrasound documented in this [facility]09-04-2024 NoteB[facility] Note Reason [...] is a longtime smoker. He presented to [facility] ED last month for syncope. He [...] and symmetric in b (more content not included)...[facility]08-20-2024 History of Present illness Narrative* Michelle [...] wrist extensors , wrist flexor , and gas generator operator strength 5/5. LUE strength deltoid , biceps , triceps , wrist extensors , wrist flexor , and gas generator operator strength 5/5. RLE strength iliopsoas, quadriceps, tibialis [...] reflex 2+. LLE Knee reflex 2+. Coordination: Lkqsds-jh-ppyw testing normal. Rapid alternating movements are normal. Gait: Normal. Review and summary of old records: Orthostatic vital signs at [facility] on 02/24/2024: Positive. Laying - blood pressure 108/71, heart rate 57 beats/min Sitting - blood pressure 144/82, heart rate 59 beats/min Standing for 3 minutes - blood pressure 120/72, heart rate 62 beats/min MRI of the brain w and w/o contrast at [facility] [place] 02/06/2024: A punctate microhemorrhage seen involving left parietal lobe on the GRE imaging. Cortical atrophy with mild chronic microvascular ischemic changes which appeared to extend into the kylee. EMG of the right lower extremity at [facility] on 02/03/2024: Normal. No evidence [...] orders for this visit: Loss of consciousness (CMS/[facility]) It is my impression that the [...] NP [facility] documented in this encounterRipley County Memorial HospitalHbdzrnmbbs97-50-4119 Instructions* Patient Instructions* Michelle Banuelos NP - 02/24/2024 1:00 PM EDT - Ambulatory EEG documented in this encounterRipley County Memorial HospitalEvaluation noteNo assessment information availableGood Samaritan Hospital Work Phone: Evaluation note* Diagnosis Loss of consciousness (CMS/HCC)- Primary Other alteration of consciousness Orthostatic hypotension Abnormal finding on MRI of brain History of hepatitis B Personal history of other infectious and parasitic disease Numbness of right lower extremity documented in this encounter [facility] HealthcareEvaluation note* Diagnosis Loss of consciousness (CMS/HCC)- Primary Other alteration of consciousness Orthostatic hypotension Episodic migraine (CMS/HCC) Abnormal finding on MRI of brain History of hepatitis B Personal history of other infectious and parasitic disease Numbness of right lower extremity documented in this encounter [facility] HealthcareEvaluation note* Diagnosis Loss of consciousness (CMS/HCC)- Primary Other alteration of consciousness Orthostatic hypotension Abnormal finding on MRI of brain Numbness of right lower extremity History of hepatitis B Personal history of other infectious and parasitic disease documented in this encounter [facility] Healthcare Summary Purpose Family History [...] [1] Hospital Course He ruled out for [place]. Chest x-ray was normal. Stress test was [...] F Miranda, Hep B antibody pos, E B16.9Reason for VisitElevated liver enzymes Hepatitis B Chief Complaint R40.20 I95.1 Refer F Miranda, Hep B antibody pos, E B16.9 elevated liver enzymesReason for VisitElevated liver enzymes Hepatitis B Chief Complaint R40.20 I95.1 Refer F Miranda, Hep B antibody pos, E B16.9 elevated liver enzymes B16.9Reason for VisitElevated liver enzymes Hepatitis B Chief Complaint R40.20 I95.1 Refer F Miranda, Hep B antibody pos, E B16.9 elevated liver enzymes B16.9 K76.0Reason for VisitElevated liver enzymes Hepatitis B Reason for Referral SpecialtyDiagnoses / ProceduresReferred By ContactReferred To ContactRadiology Diagnoses Loss of consciousness (CMS/HCC) Procedures Vascular US carotid artery duplex bilateral Michelle Banuelos NP [address] [place] [address] Referral IDStatusReasonStart DateExpiration DateVisits RequestedVisits [id number]/17/20243/196200TscjqppszSeuwnqdlx / Procedures Referred By ContactReferred To ContactNeurology Diagnoses Loss of consciousness (CMS/HCC) Procedures Home EEG 36-84 Hours Michelle Banuelos NP [address] [place] [address] Referral IDStatusReasonStart DateExpiration DateVisits RequestedVisits [id number] Review/ Additional Source Comments (unrecognized sect ion and content) No Status Records FoundNo Status Records FoundNo Status Records FoundNo Status Records FoundNo Status Records Found INFORMATION SOURCE (unrecogn ized section and content) DATE CREATED AUTHOR 12/25/2017 [facility] DATE CREATED AUTHOR AUTHOR'S ORGANIZ ATION 04/15/2019 [facility] DATE CREATED AUTHOR AUTHOR'S ORGANIZ ATION 06/18/2024 [facility] DATE CREATED AUTHOR AUTHOR'S ORGANIZ ATION 07/06/2024 [facility] DATE CREATED AUTHOR AUTHOR'S ORGANIZ ATION 02/20/2025 [facility] Care Teams (unrecognized sec tion and content) Team Status: Active Member Role Status Dates Emerald Jean INTERNATIONAL FLIGHT ATTENDANT Primary Care Provider Active Team Status: Inactive Member Role Status Dates Jamaica Borges DO Attending Provider Active Start: February 06, 2024 End: February 06, 2024Fatamara BrownNeal , APRNPrimary Care ProviderActiveStart: February 06, 2024 End: February 06, 2024 Team Status: Inactive Member Role Status Dates Ayanna Waldron MD Attending Provider Active Start: March 25, 2024 End: March 25, 2024Fatamara Jean , APRNPrimary Care Provider, Referring ProviderActiveStart: March 25, 2024 End: March 25, 2024 Team Status: Inactive Member Role Status Dates Emerald Jean APRN Primary Care Provider Active Start: March 25, 2024 End: March 25, 2024Imad Asaad , MDAttending ProviderActiveStart: March 25, 2024 End: March 25, 2024 Team Status: Active Member Role Status Dates Ayanna Waldron MD Attending Provider Active Start: December 15, 2023 Team Status: Inactive Member Role Status Dates Emerald Jean INTERNATIONAL FLIGHT ATTENDANT Primary Care Provider Active Start: March 31, 2024 End: March 31, 2024Imad Asaad , MDAttending ProviderActiveStart: March 31, 2024 End: March 31, 2024 Team Status: Inactive Member Role Status Dates Emerald Jean INTERNATIONAL FLIGHT ATTENDANT Primary Care Provider Active Start: April 03, 2024 End: April 03, 2024Imad Asaad , MDAttending ProviderActiveStart: April 03, 2024 End: April 03, 2024 Team Status: Inactive Member Role Status Dates Emerald Jean INTERNATIONAL FLIGHT ATTENDANT Primary Care Provider Active Start: May 05, 2024 End: May 05, 2024Imad Asaad , MDAttending ProviderActiveStart: May 05, 2024 End: May 05, 2024Team MemberRelationshipSpecialtyStart DateEnd Date Emerald Jean NP [address] [place] [id number] Referring [facility]12/23/23Team MemberRelationshipSpecialtyStart DateEnd Date Emerald Jean NP [address] [facility] [place] [address] Referring [facility]icianC[facility]12/23/23Te MemberRelationshipSpecialtyStart DateEnd Date Miranda Emerald, TYPESETTING MACHINE OPERATOR/TENDER [address] [place] [address] Referring PhysicianC[facility]12/23/23Te MemberRelationshipSpecialtyChestnut [place] DateEnd Date Miranda Emerald, TYPESETTING MACHINE OPERATOR/TENDER [address] [place] [address] Referring PhysicianC[facility]p [facility]12/23/23 Goals (unrecognized section and content) Goals may be documented in a n alternate sectionGoals may be documented in an alternate section Reason for Visit (unrecogniz ed section and content) ReasonCommentsFollow-upDizzinessReasonCommentsDizzinessHeadacheReasonComments Follow-up FOR RECORDS PERTAINING TO PATIENTS WHO [...] BE BASED ON THE PRIMARY CLINICAL RECORDS. [facility] [employer], [facility]. provides no warranty or guarantee of the accuracy or completeness of information in this document.
[2025-05-23 08:58] LABS: Alanine Aminotransferase 57 U/L (16-63); Aspartate Amino Transferase 29 U/L (15-37); Cholesterol 171 mg/dL (<=200); HDL Cholesterol 42 mg/dL (40-60); Triglycerides 55 mg/dL (<=150); VLDL CHOLESTEROL 11.0 mg/dL
== END 2025-05-23 08:19 | disposition home or self-care (01) ==
LOC: LAB 08:19
PROVIDERS: PCP Nurse Practitioner; Visit Provider Internal Medicine Cardiovascular Disease
DX: E78.2 Mixed hyperlipidemia (principal)
CPT/HCPCS: 36415; 80061; 84450; 84460